=== PATIENT | female | born 1940 | race Two or more races ===

== ENCOUNTER 2024-02-11 15:10 | Outpatient (AMB) | payer MEDICARE, MEDICAID, SELFPAY ==
--- NOTE | 2024-02-11 15:26 | A.OFFPC_ITS ---
Vital Signs 02/11/24 15:32 Height 4 ft 9.48 in Weight 145 lb BMI 30.9 BP 100/38 L Blood Pressure Location Rt brachial Position Sitting Respiration 14 Pulse 72 Pulse Source Pulse Oximeter Temp 98.5 F Temp Source Oral Pulse Oximetry (%) 98 Oxygen Delivery Method Room Air Intake Visit Reasons: Establish Care transfer from [facility] Intake Note: New patient visit Veterinary Surgery Technician Required: Yes Veterinary Surgery Technician Name: Madelin Allergies cetirizine Allergy (Unknown, Verified 02/15/24 12:47) Unknown lisinopril Allergy (Unknown, Verified 02/15/24 12:47) Unknown losartan Allergy (Unknown, Verified 02/15/24 12:47) Unknown spironolactone Allergy (Unknown, Verified 02/15/24 12:47) Unknown contrast dye Allergy (Unknown, Uncoded 02/15/24 12:47) kidney failure Tobacco use date assessed: 02/11/24 Fall risk assessment: No Falls in past year Last assessed Fall Risk: 02/11/24 Dental Screening Dental Screen Date: 02/11/24 Did you have a dental visit in the last 12 months?: Yes Did you have a dental problem in the last 6 months where you did not have access to dental care?: No Was dental information given to patient?: Patient has dentist HPI HPI Comments History of Present Illness Details 84-year-old female with past medical his tory of type 2 diabetes, ESRD on HD, CAD, CHF, history of breast cancer, depression, presenting for follow up Biggest concern today-patient has intermittently been having trouble swallowing. It is when the food is in the lower neck/chest. If she tries to drink something to help food get down she vomits/regurgitates it. CV: Follows with cardiology. No recent CHF exacerbation. Does report some weight gain over the past few weeks. Denies increased shortness of breath Endocrine: Hypothyroid on levothyroxine. DM: generally well controlled Depression is stable on prozac. [facility] Medical History (Updated 02/17/24 @ 09:22 by Hawa Fish MD) Fistula Urge incontinence of urine Type 2 diabetes mellitus Tubular adenoma of colon Systolic left-sided congestive heart failure, NYHA class 2 Pulmonary embolism Protein malnutrition Osteopenia STACEY on CPAP Malignant neoplasm of female breast Lichen sclerosus of vulva Left leg swelling Incontinence Hypothyroidism HTN (hypertension) Hyperlipidemia Hiatal hernia Gastro-esophageal reflux ESRD on dialysis Diabetes mellitus Coronary arteriosclerosis Ischemic cardiomyopathy Congestive heart failure Cancer of left breast CAD (coronary artery disease) Anemia Surgical History H/O colonoscopy H/O: hysterectomy S/P SANDRINE-BSO History of implantable cardiac defibrillator (ICD) Family History Maternal Grandmother Cardiovascular disease Father Lung cancer Social History Housing: House Patient Tobacco Use Status: Never used Tobacco e-Cigarette/Vaping Use: Never Used Second Hand Smoke Exposure: Yes Cognitive needs: No Hearing needs: No Vision needs: No Questionnaire PHQ-9 Over the last 2 weeks, how often have you been bothered by any of the following problems? 1. Little interest or pleasure in doing things: not at all 2. Feeling down, depressed, or hopeless: not at all 3. Trouble falling or staying asleep, or sleeping too much: not at all 4. Feeling tired or having little energy: more than half the days 5. Poor appetite or overeating: not at all 6. Feeling bad about yourself - or that you are a failure or have let yourself or your family down: not at all 7. Trouble concentrating on things, such as reading the newspaper or watching television: not at all 8. Moving or speaking so slowly that other people could have noticed. Or the opposite - being so fidgety or restless that you have been moving around a lot more than usual: not at all 9. Thoughts that you would be better off or of hurting yourself in some way: not at all Total score: 2 Depression Screening Interpretation: Negative Depression Screening Done: Yes [id number] - PHQ-9 Billing: Yes Source: Developed by Drs. Bienvenido Aragon, Winnie Givens, Matt Alcantar and colleagues, with an educational justen from [email or web address]. Thrive Questionnaire Date Thrive assessed: 02/11/24 I am a: Patient What is your living situation today?: I have a steady place to live Within the past 12 months, did the food you bought not last and you didn't have the money to get more?: Never true Within the past 12 months, did you worry whether your food would run out before you got money to buy more?: Never true Do you have trouble paying for medicines?: No Do you have trouble getting transportation to medical appointments?: No Do you have trouble paying your heating and electricity bill?: No Do you have trouble taking care of your child, family member or friend?: No Do you have trouble with day-to-day activities such as bathing, preparing meals, shopping, managing finances, etc.?: No Are you currently unemployed and looking for a job?: No Are you interested in more education?: No Please select the resources that you would like help with: None Currently or been in a relationship where the following occur: no concerns reported THRIVE Score: 0 AUDIT C Alcohol Use Questionnaire (AUDIT-C) 1. How often do you have a drink containing alcohol?: Never 3. How often do you have six or more drinks on one occasion?: Never Total Score: 0 ANDREEA-7 AMB Questionnaire ANDREEA-7 Date ANDREEA - 7 assessed: 02/11/24 Feeling nervous, anxious, or on edge: 0 = Not at all Not being able to stop or control worryin = Not at all Worrying too much about different things: 0 = Not at all Trouble relaxin = Not at all Being so restless that it is hard to sit still: 0 = Not at all Becoming easily annoyed or irritable: 0 = Not at all Feeling afraid as if something awful might happen: 0 = Not at all Total ANDREEA-7 score (0-4 normal; 5-9 mild; 10-14 moderate; 15-21 severe): 0 Source: Developed by Drs. Bienvenido Aragon, Winnie Givens, Matt Alcantar and colleagues, with an educational justen from [email or web address]. ANDREEA-7 Assessment Billing ANDREEA-7 Assessment Tool: ANDREEA-7 Assessment 39244 Review of Systems Const Details: ROS CONSTITUTIONAL: Denies weight loss, fever and chills. HEENT: Denies changes in vision and hearing. RESPIRATORY: Denies SOB and cough. CV: Denies palpitations and CP GI: Denies abdominal pain, nausea, vomiting and diarrhea. : Denies dysuria and urinary frequency. MSK: Denies new myalgia and joint pain. SKIN: Denies rash and pruritus. NEUROLOGICAL: Denies headache PSYCHIATRIC: Denies recent changes in mood. Physical exam (Primary Care) Vital Signs: Last Vital Signs Temp 98.5 F 02/11/24 15:32 Pulse 72 02/11/24 15:32 Resp 14 02/11/24 15:32 BP 100/38 L 02/11/24 15:32 Pulse Ox 98 02/11/24 15:32 Oxygen Delivery Method Room Air 02/11/24 15:32 BMI result Body Mass Index 30.9 Tobacco/Smoking Status: Tobacco use Status Tobacco use date assessed 02/11/24 02/11/24 15:32 Patient Tobacco Use Status Never used Tobacco 02/11/24 15:32 e-Cigarette/Vaping Use Never Used 02/11/24 15:32 PHQ-9: PHQ-9 Score PHQ-9: Total score 2 02/11/24 16:58 Depression Screening Interpretation: Negative Thrive Assessment: Date of Thrive Assessment Date Thrive assessed 02/11/24 02/11/24 16:58 Currently or been in a relationship where the following occur: no concerns reported Assessment and Plan Assessment & Plan (1) Regurgitation of food: Code(s): R11.10 - Vomiting, unspecified Plan: Referral to GI placed (2) Dysphagia: Code(s): R13.10 - Dysphagia, unspecified Qualifiers: Dysphagia type: unspecified Qualified Code(s): R13.10 - Dysphagia, unspecified (3) Type 2 diabetes mellitus: Code(s): E11.9 - Type 2 diabetes mellitus without complications Qualifiers: Diabetes mellitus long chain quiller tender insulin use: with assisted use Diabetes mellitus complication status: with kidney complications Diabetes mellitus complication detail: with chronic kidney disease Chronic kidney disease stage: on chronic dialysis Qualified Code(s): E11.22 - Type 2 diabetes mellitus with diabetic chronic kidney disease; N18.6 - End stage renal disease; Z79.4 - halfway (current) use of insulin; Z99.2 - Dependence on renal dialysis (4) Systolic left-sided congestive heart failure, NYHA class 2: Code(s): I50.20 - Unspecified systolic (congestive) heart failure (5) ESRD on dialysis: Code(s): N18.6 - End stage renal disease; Z99.2 - Dependence on renal dialysis (6) HTN (hypertension): Code(s): I10 - Essential (primary) hypertension Orders: Orders FL barium swallow modified 02/11/24 R13.10 - Dysphagia, unspecified Referrals Gastroenterology Referral R11.10 - Vomiting, unspecified, R13.10 - Dysphagia, unspecified Medications: New clobetasol 0.05% 1 appl topical DAILY 30 days PRN 45 grams 3RF vaginal discomfort FreeStyle Cisco 2 Sensor (flash glucose sensor) As directed q14 days MARTA 6 ea 3RF NS E11.9 - Type 2 diabetes mellitus without complications Coding Level of Care Code Est Pt Level 5 (40789) Complex EM visit Add On G2211 Diagnoses Regurgitation of food R11.10 Dysphagia, unspecified type R13.10 Dysphagia type: unspecified Type 2 diabetes mellitus with chronic kidney disease on chronic dialysis, with long-term current use of insulin E11.22; N18.6; Z79.4; Z99.2 Diabetes mellitus long chain quiller tender insulin use: with long chain quiller tender use Diabetes mellitus complication status: with kidney complications Diabetes mellitus complication detail: with chronic kidney disease Chronic kidney disease stage: on chronic dialysis Systolic left-sided congestive heart failure, NYHA class 2 I50.20 ESRD on dialysis N18.6; Z99.2 HTN (hypertension) I10 Additional Codes ANDREEA-7 Assessment Billing - ANDREEA-7 Assessment Tool: ANDREEA-7 Assessment 39699 ([id number])
[2024-02-11 15:32] VITALS: BP 100/38; PULSE 72; RESP 14; TEMP 36.9; O2SAT 98; BMI 30.9
== END 2024-02-11 16:14 | disposition home or self-care (01) ==
PROVIDERS: Visit Provider Internal Medicine
DX: I12.0 Hypertensive chronic kidney disease with stage 5 chronic kidney disease or end stage renal disease (principal); E11.22 Type 2 diabetes mellitus with diabetic chronic kidney disease; N18.6 End stage renal disease; Z79.4 Long term (current) use of insulin; Z99.2 Dependence on renal dialysis; I50.20 Unspecified systolic (congestive) heart failure; R11.10 Vomiting, unspecified; R13.10 Dysphagia, unspecified
CPT/HCPCS: 99214; G2211

== ENCOUNTER 2024-02-15 12:41 | Outpatient (AMB) | payer MEDICARE, MEDICAID, SELFPAY ==
[2024-02-15 12:44] VITALS: BP 100/55; PULSE 76; BMI 30.5
--- NOTE | 2024-02-15 12:44 | MHC.OFFVIS ---
Vital Signs 02/15/24 12:44 Height 4 ft 9 in Weight 141 lb 1.533 oz BMI 30.5 BP 100/55 L Blood Pressure Location Rt brachial Position Sitting Pulse 76 Intake Visit Reasons: Dysphagia, Vomiting Intake Note: Dana presents in the office as a new patient for Dysphagia. CC: She is having issues swallowing that has been going on for a few months - she states it feels stuck. She will have to throw it up to get it out. Customer Solutions Architect Required: Yes Customer Solutions Architect Name: daughter Allergies cetirizine Allergy (Unknown, Verified 02/15/24 12:47) Unknown lisinopril Allergy (Unknown, Verified 02/15/24 12:47) Unknown losartan Allergy (Unknown, Verified 02/15/24 12:47) Unknown spironolactone Allergy (Unknown, Verified 02/15/24 12:47) Unknown contrast dye Allergy (Unknown, Uncoded 02/15/24 12:47) kidney failure HPI HPI Dysphagia, Vomiting: Details: 84-year-old female with past medical history of hyperlipidemia, CKD on dialysis since 2022, diabetes, history of breast cancer, depression, hypertension is here today for consultation. Patient was sent to evaluate for trouble swallowing. Patient reports that about few months ago she has been noticing that food gets stuck in proximal esophagus below cervical region. Patient reports that this does not happens all the time. Patient states that this happens usually with rice and some vegetables. Patient was on famotidine and was switched to omeprazole about a year ago or so. Patient is taking omeprazole 20 mg every morning. Patient reports that during night she has epigastric discomfort and burning. Patient does not feel like omeprazole has been working well. Patient denies any nausea or vomiting. Reports that she is moving her bowels without any issues. Denies melena, hematochezia, unintentional weight loss or ribbon like stools. Patient reports that she is able to swallow well, however sometimes feels like food gets stuck below and feels painful on the right side of her esophagus just below the cervical region. [facility] Medical History (Updated 02/17/24 @ 09:22 by Hawa Fish MD) Fistula Urge incontinence of urine Type 2 diabetes mellitus Tubular adenoma of colon Systolic left-sided congestive heart failure, NYHA class 2 Pulmonary embolism Protein malnutrition Osteopenia STACEY on CPAP Malignant neoplasm of female breast Lichen sclerosus of vulva Left leg swelling Incontinence Hypothyroidism HTN (hypertension) Hyperlipidemia Hiatal hernia Gastro-esophageal reflux ESRD on dialysis Diabetes mellitus Coronary arteriosclerosis Ischemic cardiomyopathy Congestive heart failure Cancer of left breast CAD (coronary artery disease) Anemia Surgical History H/O colonoscopy H/O: hysterectomy S/P SANDRINE-BSO History of implantable cardiac defibrillator (ICD) Family History Maternal Grandmother Cardiovascular disease Father Lung cancer Social History Housing: House Patient Tobacco Use Status: Never used Tobacco e-Cigarette/Vaping Use: Never Used Second Hand Smoke Exposure: Yes Cognitive needs: No Hearing needs: No Vision needs: No Review of Systems Const Denies weight gain and Denies weight loss ENT Reports no additional complaints, Reports dysphagia and Denies odynophagia Card Reports no additional complaints Resp Reports no additional complaints GI Denies abdominal pain, Denies belching, Denies melena, Denies bloating, Denies change in bowel habits, Reports dysphagia, Denies excessive flatus, Denies dyspepsia, Denies heartburn, Denies diarrhea, Denies loose stools, Denies nausea, Denies odynophagia and Denies vomiting Reports no additional complaints Musc Reports no additional complaints Neuro Reports no additional complaints Psych Reports no additional complaints Endo Reports no additional complaints Physical Exam Vital Signs: Last Vital Signs Pulse 76 02/15/24 12:44 BP 100/55 L 02/15/24 12:44 BMI result Body Mass Index 30.5 Const General: healthy appearing and no acute distress Nutritional Appearance: obese Orientation/consciousness: patient oriented x3 Resp Effort & Inspection: normal respiratory effort, able to speak in complete sentences, no tracheal deviation and symmetric chest movement Auscultation: clear to auscultation bilaterally Cardio Rate: regular rate GI Inspection: Yes normal to inspection, No distended and Yes obesity Palpation (GI): Soft to palpation, not firm, nontender and No hepatosplenomegaly present Auscultation: normal bowel sounds General: Yes no CVA tenderness Back/Spine/Pelvis Back: no CVA tenderness Skin General skin exam: elasticity normal, turgor normal and dry skin Neuro General: patient oriented x3 Psych Appearance: grossly normal Mental Status: mental status grossly normal Assessment & Plan Assessment & Plan (1) Dysphagia: Code(s): R13.10 - Dysphagia, unspecified Category: Medical Qualifiers: Dysphagia type: esophageal phase Qualified Code(s): R13.19 - Other dysphagia (2) GERD (gastroesophageal reflux disease): Code(s): K21.9 - Gastro-esophageal reflux disease without esophagitis Qualifiers: Esophagitis presence: esophagitis presence not specified Qualified Code(s): K21.9 - Gastro-esophageal reflux disease without esophagitis (3) Postprandial epigastric pain: Code(s): R10.13 - Epigastric pain Plan Will check for H pylori. Will change to barium swallow as her symptoms are located below cervical region and patient reports that she has no trouble swallowing, however reports that food is getting stuck in the proximal esophagus. Will change to Nexium in the morning and will add famotidine at bedtime. Avoid dietary triggers and late night snacking. Staying upright for minimum 3 hours after meals discussed with patient. Will check transglutaminase, H pylori, vitamin B12, liver panel, send her for barium swallow. Patient will start to take Nexium in the morning and famotidine at bedtime. Discussed with patient avoiding dietary triggers and late night snacking. Staying upright for minimum 3 hours after meals discussed with patient. She will return in 2 months, sooner on as needed basis. Patient is agreeable to this plan and verbalizes understanding of instructions. She was given the opportunity to ask questions and all questions answered. Thank you for allowing me to participate in her care Orders: Orders H pylori Ag Stool 02/15/24 K21.9 - Gastro-esophageal reflux disease without esophagitis Transglutaminase Ab IgG 02/15/24 R10.9 - Unspecified abdominal pain Vitamin B12 and Folate 02/15/24 R19.7 - Diarrhea, unspecified Lipid Panel 02/15/24 I25.10 - Atherosclerotic heart disease of [place] coronary artery without angina pectoris Liver Panel Today R74.01 - Elevation of levels of liver transaminase levels Transglutaminase IgA 02/15/24 R10.9 - Unspecified abdominal pain Vitamin D 25-OH (D2 and D3) 02/15/24 E55.9 - Vitamin D deficiency, unspecified FL barium swallow 02/15/24 R13.10 - Dysphagia, unspecified Add Laboratory Test 02/15/24 K21.9 - Gastro-esophageal reflux disease without esophagitis, R13.19 - Other dysphagia Medications: New esomeprazole magnesium (Nexium) 40 mg PO DAILY 30 caps 5RF K21.9 - Gastro-esophageal reflux disease without esophagitis, R13.10 - Dysphagia, unspecified Changed From famotidine 20 mg PO BID To famotidine 20 mg PO BEDTIME 30 tabs 3RF Coding Level of Care Code New Pt Level 4 (34943) Diagnoses Esophageal dysphagia R13.19 Dysphagia type: esophageal phase Gastroesophageal reflux disease, unspecified whether esophagitis present K21.9 Esophagitis presence: esophagitis presence not specified Postprandial epigastric pain R10.13 Time Spent (min) 45 Comment 30 minutes spent with patient and additional 15 minutes spent reviewing her records
== END 2024-02-15 13:30 | disposition home or self-care (01) ==
PROVIDERS: Visit Provider Nurse Practitioner Family
DX: R13.19 Other dysphagia (principal); K21.9 Gastro-esophageal reflux disease without esophagitis; R10.13 Epigastric pain
CPT/HCPCS: 99204

== ENCOUNTER → 2024-02-15 12:41 | Outpatient (BNVA) | payer MEDICARE, MEDICAID, SELFPAY | PROVIDERS: Visit Provider Nurse Practitioner Family | DX: K21.9 Gastro-esophageal reflux disease without esophagitis (principal); R13.19 Other dysphagia; R10.13 Epigastric pain | CPT/HCPCS: 99202 ==

== ENCOUNTER 2024-03-06 08:57 | Outpatient (REF) | payer MEDICARE, MEDICAID, SELFPAY ==
--- NOTE | ~2024-03-06 | FL_ITS ---
EXAMINATION: XR FLUOROSCOPY UPPER GI WITH AIR CLINICAL INFORMATION: Dysphagia COMPARISON: None TECHNIQUE: Fluoroscopic air contrast upper GI examination was performed utilizing standard techniques with thin and thick barium and effervescent granules. Numerous spot images were obtained. FINDINGS: A 3-lead left-sided pacer/AICD is noted. Leads terminate in the right ventricle, right atrium, and coronary sinus. Lateral cine images of the oropharynx and hypopharynx demonstrate normal swallow mechanism with normal epiglottic inversion and soft palate elevation. No tracheal penetration, glottic or subglottic aspiration identified. No nasopharyngeal reflux present. Hypopharyngeal structures appear normal without evidence of mass or diverticulum. There was no significant cricopharyngeal achalasia. Dual and single contrast images of the esophagus demonstrate normal caliber, contour, and mucosal pattern. No evidence of mass, or ulcerations identified. There is to and fro motion of the barium column with nonpropulsive tertiary contractions noted throughout the esophagus. A nonobstructing Schatzki's ring is present (RF1-8, 73/93). Probable small propulsion diverticulum arising posteriorly from the distal esophagus just above the Schatzki's ring. A small type I hiatal hernia is present. Gastroesophageal reflux is seen up to the level the aortic arch. Dual contrast and single contrast images of the stomach demonstrated a normal contour. Evaluation of the gastric mucosa is limited due to underdistention of the stomach from poor tolerance of the effervescent granules. No masses are seen. Contrast freely passed into the gastric antrum and duodenal bulb without delay. Single and air-contrast images of the duodenal bulb demonstrate no abnormality. The duodenal sweep has a normal appearance, course, and mucosal fold appearance. There is a large first and fourth segment diverticula arising cephalad. There is a small third segment diverticulum. There is no malrotation. The imaged proximal jejunum has a normal fold pattern and caliber. FLUOROSCOPY TIME: 4 minutes 11 seconds Number of Spot Images: 12 Number of Cine: 12 DOSE AREA PRODUCT: [id number] uGy-m2 (microgray-meter squared) FL/FL barium swallow with air IMPRESSION: 1. Prominent esophageal dysmotility. Small probable pulsion diverticulum arising above the GE junction. 2. Nonobstructing Schatzki's ring. 3. Small type I hiatal hernia. 4. Moderate gastroesophageal reflux. 5. Limited evaluation of the gastric mucosa due to underdistention of the stomach from poor retention of the effervescent granule gas. Consider correlation with EGD. 6. First, third, and fourth segment duodenal diverticula. This procedure was performed by Trae Franks PA-C, and supervised by Dr. Sawyer
== END 2024-03-06 08:58 | disposition home or self-care (01) ==
LOC: HO.XRAY 08:57
PROVIDERS: PCP Internal Medicine; Visit Provider Nurse Practitioner Family
DX: R13.10 Dysphagia, unspecified (principal)
CPT/HCPCS: 74221

== ENCOUNTER → 2024-03-06 09:00 | Outpatient (BNV) | payer MEDICARE, MEDICAID, SELFPAY | PROVIDERS: PCP Internal Medicine; Visit Provider Physician Assistant Surgical | DX: R13.10 Dysphagia, unspecified (principal) | CPT/HCPCS: 74246 ==

== ENCOUNTER 2024-04-16 13:26 | Outpatient (AMB) | payer MEDICARE, MEDICAID, SELFPAY ==
--- NOTE | 2024-04-16 13:38 | A.OFFVIS_ITS ---
Vital Signs 04/16/24 13:47 Height 4 ft 9 in Weight 140 lb 2 oz BMI 30.3 BP 128/60 Blood Pressure Location Rt brachial Position Sitting Pulse 68 Pulse Source Pulse Oximeter Pulse Oximetry (%) 97 Oxygen Delivery Method Room Air Intake Visit Reasons: 2 months follow up Intake Note: Dana presents in office today for a scheduled 2 mos FUV. CC; Pt was rx'd esomeprazole. Pt also had lab orders placed at her last visit which she had completed at [facility]. Pt states that they have been taking the nexium as instructed without any noticeable difference. 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 Will change to barium swallow as her symptoms are located below cervical region and patient reports that she has no trouble swallowing, however reports that food is getting stuck in the proximal esophagus. Will change to Nexium in the morning and will add famotidine at bedtime. Avoid dietary triggers and late night snacking. Staying upright for minimum 3 hours after meals discussed with patient. Will check transglutaminase, H pylori, vitamin B12, liver panel, send her for barium swallow. Patient will start to take Nexium in the morning and famotidine at bedtime. Discussed with patient avoiding dietary triggers and late night snacking. Staying upright for minimum 3 hours after meals discussed with patient. She will return in 2 months, sooner on as needed basis. Patient is agreeable to this plan and verbalizes understanding of instructions. She was given the opportunity to ask questions and all questions answered. ? Thank you for allowing me to participate in her care Orders Orders H pylori Ag Stool 02/15/24 K21.9 Transglutaminase Ab IgG 02/15/24 R10.9 Vitamin B12 and Folate 02/15/24 R19.7 Lipid Panel 02/15/24 I25.10 Liver Panel Today R74.01 Transglutaminase IgA 02/15/24 R10.9 Vitamin D 25-OH (D2 and D3) 02/15/24 E55.9 FL barium swallow 02/15/24 R13.10 Add Laboratory Test 02/15/24 K21.9, R13.19 Medications New esomeprazole magnesium (Nexium) 40 mg PO DAILY 30 caps 5RF K21.9, R13.10 Changed Changed From famotidine 20 mg PO BID Changed To famotidine 20 mg PO BEDTIME 30 tabs 3RF TODAY'S VISIT Patient is here today for follow-up. Patient is accompanied by her daughter. Patient reports that she started taking Nexium in the morning and takes famotidine at night time and throughout the day patient reports to have dyspepsia, dysphagia and epigastric pain. Patient states that she is doing okay with Pepcid at night time. Patient states that she is trying to avoid dietary triggers, denies eating late at night. Patient denies melena, hematochezia, unintentional weight loss or ribbon like stools. Barium swallow showed nonobstructing Schatzki ring possible diverticula in GE junction and esophageal dysmotility as well as moderate acid reflux. REPLACED BY [facility] Medical History Fistula Urge incontinence of urine Type 2 diabetes mellitus Tubular adenoma of colon Systolic left-sided congestive heart failure, NYHA class 2 Pulmonary embolism Protein malnutrition Osteopenia STACEY on CPAP Malignant neoplasm of female breast Lichen sclerosus of vulva Left leg swelling Incontinence Hypothyroidism HTN (hypertension) Hyperlipidemia Hiatal hernia Gastro-esophageal reflux ESRD on dialysis Diabetes mellitus Coronary arteriosclerosis Ischemic cardiomyopathy Congestive heart failure Cancer of left breast CAD (coronary artery disease) Anemia Surgical History H/O colonoscopy H/O: hysterectomy S/P SANDRINE-BSO History of implantable cardiac defibrillator (ICD) Family History Maternal Grandmother Cardiovascular disease Father Lung cancer Social History Housing: House Patient Tobacco Use Status: Never used Tobacco e-Cigarette/Vaping Use: Never Used Second Hand Smoke Exposure: Yes Cognitive needs: No Hearing needs: No Vision needs: No Review of Systems Const Denies weight gain and Denies weight loss ENT Reports no additional complaints, Reports dysphagia and Denies odynophagia Card Reports no additional complaints Resp Reports no additional complaints GI Denies abdominal pain, Denies belching, Denies melena, Denies bloating, Denies change in bowel habits, Reports dysphagia, Denies excessive flatus, Denies dyspepsia, Denies heartburn, Denies diarrhea, Denies loose stools, Denies nausea, Denies odynophagia and Denies vomiting Reports no additional complaints Musc Reports no additional complaints Neuro Reports no additional complaints Psych Reports no additional complaints Endo Reports no additional complaints Physical Exam Vital Signs: Last Vital Signs Pulse 68 04/16/24 13:47 BP 128/60 04/16/24 13:47 Pulse Ox 97 04/16/24 13:47 Oxygen Delivery Method Room Air 04/16/24 13:47 BMI result Body Mass Index 30.3 Const General: healthy appearing and no acute distress Nutritional Appearance: obese Orientation/consciousness: patient oriented x3 Resp Effort & Inspection: normal respiratory effort, able to speak in complete sentences, no tracheal deviation and symmetric chest movement Auscultation: clear to auscultation bilaterally Cardio Rate: regular rate GI Inspection: Yes normal to inspection, No distended and Yes obesity Palpation (GI): Soft to palpation, not firm, nontender and No hepatosplenomegaly present Auscultation: normal bowel sounds General: Yes no CVA tenderness Back/Spine/Pelvis Back: no CVA tenderness Skin General skin exam: elasticity normal, turgor normal and dry skin Neuro General: patient oriented x3 Psych Appearance: grossly normal Mental Status: mental status grossly normal Results Reviewed Results Reviewed: BARIUM SWALLOW IMPRESSION: 1. Prominent esophageal dysmotility. Small probable pulsion diverticulum arising above the GE junction. 2. Nonobstructing Schatzki's ring. 3. Small type I hiatal hernia. 4. Moderate gastroesophageal reflux. 5. Limited evaluation of the gastric mucosa due to underdistention of the stomach from poor retention of the effervescent granule gas. Consider correlation with EGD. 6. First, third, and fourth segment duodenal diverticula. Assessment & Plan Assessment & Plan (1) Dysphagia: Code(s): R13.10 - Dysphagia, unspecified Category: Medical Qualifiers: Dysphagia type: unspecified Qualified Code(s): R13.10 - Dysphagia, unspecified (2) GERD (gastroesophageal reflux disease): Code(s): K21.9 - Gastro-esophageal reflux disease without esophagitis Qualifiers: Esophagitis presence: esophagitis presence not specified Qualified Code(s): K21.9 - Gastro-esophageal reflux disease without esophagitis (3) Postprandial epigastric pain: Code(s): R10.13 - Epigastric pain (4) Constipation: Code(s): K59.00 - Constipation, unspecified Qualifiers: Constipation type: slow transit constipation Qualified Code(s): K59.01 - Slow transit constipation Plan Patient will start taking Pepcid twice a day. Avoid dietary triggers and late night snacking. We might have to change to PPI like pantoprazole. Patient did not do well with as omeprazole states that she did not feel any difference. Reports constipation and abdominal bloating will start her on senna. Patient will need upper endoscopy. Daughter wants patient to have a colonoscopy. Will send her to [facility] for clearance. She will return in 2-3 months to discuss going for procedure. Patient will call our office if she will continue to have symptoms. Both patient and her daughter are agreeable to plan of care and verbalizes understanding of instructions. They were given the opportunity to ask questions and all questions answered. Thank you for allowing me to participate in her care Medications: New sennosides (Natural Senna Laxative) 17.2 mg (2 x 8.6 mg) PO BEDTIME 60 tabs 3RF constipation K59.00 - Constipation, unspecified Changed From famotidine 20 mg PO BEDTIME 30 tabs 3RF To famotidine 20 mg PO BID 60 tabs 3RF Discontinued esomeprazole magnesium Discontinued Reason: Doctor's Order 40 mg PO DAILY 30 caps 5RF K21.9 - Gastro-esophageal reflux disease without esophagitis, R13.10 - Dysphagia, unspecified Coding Level of Care Code Est Pt Level 4 (36454) Diagnoses Dysphagia, unspecified type R13.10 Dysphagia type: unspecified Gastroesophageal reflux disease, unspecified whether esophagitis present K21.9 Esophagitis presence: esophagitis presence not specified Postprandial epigastric pain R10.13 Slow transit constipation K59.01 Constipation type: slow transit constipation Time Spent (min) 35 Comment 20 minutes spent with patient and additional 15 minutes spent reviewing her records
[2024-04-16 13:47] VITALS: BP 128/60; PULSE 68; O2SAT 97; BMI 30.3
== END 2024-04-16 14:49 | disposition home or self-care (01) ==
PROVIDERS: Visit Provider Nurse Practitioner Family
DX: R13.10 Dysphagia, unspecified (principal); K21.9 Gastro-esophageal reflux disease without esophagitis; R10.13 Epigastric pain; K59.01 Slow transit constipation
CPT/HCPCS: 99214

== ENCOUNTER → 2024-04-16 13:26 | Outpatient (BNVA) | payer MEDICARE, MEDICAID, SELFPAY | PROVIDERS: Visit Provider Nurse Practitioner Family | DX: K21.9 Gastro-esophageal reflux disease without esophagitis (principal); K59.01 Slow transit constipation; R13.10 Dysphagia, unspecified; R10.13 Epigastric pain | CPT/HCPCS: 99212 ==

== ENCOUNTER 2024-07-28 14:26 | Outpatient (AMB) | payer MEDICARE, MEDICAID, SELFPAY ==
--- NOTE | 2024-07-28 14:39 | A.OFFPC_ITS ---
Vital Signs 07/28/24 14:42 Height 4 ft 9 in Weight 144 lb 6 oz BMI 31.2 BP 108/44 L Blood Pressure Location Rt brachial Position Sitting Pulse 67 Pulse Source Pulse Oximeter Pulse Oximetry (%) 97 Oxygen Delivery Method Room Air Intake Visit Reasons: CPE Intake Note: Physical Allergies cetirizine Allergy (Unknown, Verified 07/28/24 14:40) Unknown lisinopril Allergy (Unknown, Verified 07/28/24 14:40) Unknown losartan Allergy (Unknown, Verified 07/28/24 14:40) Unknown spironolactone Allergy (Unknown, Verified 07/28/24 14:40) Unknown contrast dye Allergy (Unknown, Uncoded 07/28/24 14:40) kidney failure Tobacco use date assessed: 02/11/24 Dental Screening Dental Screen Date: 02/11/24 HPI HPI Comments History of Present Illness Details 84-year-old female with past medical his tory of type 2 diabetes, ESRD on HD, CAD, CHF, history of breast cancer, depression, presenting for physical exam CV: Follows with cardiology. No recent CHF exacerbation. Denies increased shortness of breath Endocrine: Hypothyroid on levothyroxine. DM: generally well controlled Depression is stable on prozac. GI: Dysphagia. Had barium swallow. Saw GI. ROS CONSTITUTIONAL: Denies weight loss, fever and chills. HEENT: Denies changes in vision and hearing. RESPIRATORY: Denies SOB and cough. CV: Denies palpitations and CP GI: Denies abdominal pain, nausea, vomiting and diarrhea. : Denies dysuria and urinary frequency. MSK: Denies new myalgia and joint pain. SKIN: Denies rash and pruritus. NEUROLOGICAL: Denies headache PSYCHIATRIC: Denies recent changes in mood. PHYSICAL EXAM: GENERAL: Alert and oriented x 3. NAD EYES: EOMI. Anicteric. HENT: Moist mucous membranes. LUNGS: Clear to auscultation bilaterally. CARDIOVASCULAR: Regular rate and rhythm. +murmur. No JVD. ABDOMEN: Soft, non-tender +bs EXTREMITIES: No edema. Non-tender. SKIN: No rashes or lesions. Warm. NEUROLOGIC: No focal neurological deficits. CN II-XII grossly intact PSYCHIATRIC: Cooperative. Appropriate mood and affect FORMERLY [facility], [facility]1983 Medical History Fistula Urge incontinence of urine Type 2 diabetes mellitus Tubular adenoma of colon Systolic left-sided congestive heart failure, NYHA class 2 Pulmonary embolism Protein malnutrition Osteopenia STACEY on CPAP Malignant neoplasm of female breast Lichen sclerosus of vulva Left leg swelling Incontinence Hypothyroidism HTN (hypertension) Hyperlipidemia Hiatal hernia Gastro-esophageal reflux ESRD on dialysis Diabetes mellitus Coronary arteriosclerosis Ischemic cardiomyopathy Congestive heart failure Cancer of left breast CAD (coronary artery disease) Anemia Surgical History H/O colonoscopy H/O: hysterectomy S/P SANDRINE-BSO History of implantable cardiac defibrillator (ICD) Family History Maternal Grandmother Cardiovascular disease Father Lung cancer Social History Housing: House Patient Tobacco Use Status: Never used Tobacco e-Cigarette/Vaping Use: Never Used Second Hand Smoke Exposure: Yes Cognitive needs: No Hearing needs: No Vision needs: No Questionnaire PHQ-9 Over the last 2 weeks, how often have you been bothered by any of the following problems? 1. Little interest or pleasure in doing things: not at all 2. Feeling down, depressed, or hopeless: not at all 3. Trouble falling or staying asleep, or sleeping too much: several days 4. Feeling tired or having little energy: several days 5. Poor appetite or overeating: not at all 6. Feeling bad about yourself - or that you are a failure or have let yourself or your family down: not at all 7. Trouble concentrating on things, such as reading the newspaper or watching television: not at all 8. Moving or speaking so slowly that other people could have noticed. Or the opposite - being so fidgety or restless that you have been moving around a lot more than usual: not at all 9. Thoughts that you would be better off or of hurting yourself in some way: not at all Total score: 2 Source: Developed by Drs. Bienvenido Aragon, Winnie Givens, Matt Alcantar and colleagues, with an educational justen from [employer]. Thrive Questionnaire Date Thrive assessed: 02/11/24 I am a: Parent/Caregiver What is your living situation today?: I have a steady place to live Within the past 12 months, did the food you bought not last and you didn't have the money to get more?: Never true Within the past 12 months, did you worry whether your food would run out before you got money to buy more?: Never true Do you have trouble paying for medicines?: No Do you have trouble getting transportation to medical appointments?: No Do you have trouble paying your heating and electricity bill?: No Do you have trouble taking care of your child, family member or friend?: No Do you have trouble with day-to-day activities such as bathing, preparing meals, shopping, managing finances, etc.?: No Are you currently unemployed and looking for a job?: No Are you interested in more education?: No Please select the resources that you would like help with: None Currently or been in a relationship where the following occur: No concerns reported THRIVE Score: 0 AUDIT C Alcohol Use Questionnaire (AUDIT-C) 1. How often do you have a drink containing alcohol?: Never Total Score: 0 ANDREEA-7 AMB Questionnaire ANDREEA-7 Date ANDREEA - 7 assessed: 02/11/24 Feeling nervous, anxious, or on edge: 1 = Several days Not being able to stop or control worryin = Not at all Worrying too much about different things: 0 = Not at all Trouble relaxin = Not at all Being so restless that it is hard to sit still: 0 = Not at all Becoming easily annoyed or irritable: 0 = Not at all Feeling afraid as if something awful might happen: 0 = Not at all Total ANDREEA-7 score (0-4 normal; 5-9 mild; 10-14 moderate; 15-21 severe): 1 Source: Developed by Drs. Bienvenido Aragon, Winnie Givens, Matt Alcantar and colleagues, with an educational justen from [employer]. Physical exam (Primary Care) Vital Signs: Last Vital Signs Pulse 67 07/28/24 14:42 BP 108/44 L 07/28/24 14:42 Pulse Ox 97 07/28/24 14:42 Oxygen Delivery Method Room Air 07/28/24 14:42 BMI result Body Mass Index 31.2 Tobacco/Smoking Status: Tobacco use Status Tobacco use date assessed 02/11/24 07/28/24 14:46 Patient Tobacco Use Status Never used Tobacco 07/28/24 14:46 e-Cigarette/Vaping Use Never Used 07/28/24 14:46 PHQ-9: PHQ-9 Score PHQ-9: Total score 2 08/14/24 10:55 Thrive Assessment: Date of Thrive Assessment Date Thrive assessed 02/11/24 07/28/24 14:46 Currently or been in a relationship where the following occur: No concerns reported Coding Level of Care Code Est Pt Prev Care >65y(87104) Diagnoses Physical exam Z00.00 Type 2 diabetes mellitus with chronic kidney disease on chronic dialysis, with long-term current use of insulin E11.22; N18.6; Z79.4; Z99.2 Chronic kidney disease stage: on chronic dialysis Diabetes mellitus complication detail: with chronic kidney disease Diabetes mellitus complication status: with kidney complications Diabetes mellitus computer terminal operator insulin use: with computer terminal operator use ESRD on dialysis N18.6; Z99.2 Systolic left-sided congestive heart failure, NYHA class 2 I50.20 Assessment & Plan Assessment & Plan (1) Physical exam: Code(s): Z00.00 - Encounter for general adult medical examination without abnormal findings Category: Medical Plan: Care team reviewed Medications reconciled HRA reviewed Chronic disease management discussed (2) Type 2 diabetes mellitus: Code(s): E11.9 - Type 2 diabetes mellitus without complications Category: Medical Qualifiers: Chronic kidney disease stage: on chronic dialysis Diabetes mellitus complication detail: with chronic kidney disease Diabetes mellitus complication status: with kidney complications Diabetes mellitus computer terminal operator insulin use: with computer terminal operator use Qualified Code(s): E11.22 - Type 2 diabetes mellitus with diabetic chronic kidney disease; N18.6 - End stage renal disease; Z79.4 - longterm (current) use of insulin; Z99.2 - Dependence on renal dialysis Plan: Generally well controlled on current medications (3) ESRD on dialysis: Code(s): N18.6 - End stage renal disease; Z99.2 - Dependence on renal dialysis Category: Medical Plan: Tolerating treatment well (4) Systolic left-sided congestive heart failure, NYHA class 2: Code(s): I50.20 - Unspecified systolic (congestive) heart failure Category: Medical Plan: Euvolemic on exam. continue cardiology follow up Orders: Orders Complete Blood Count Auto Diff 11/04/24 E11.22 - Type 2 diabetes mellitus with diabetic chronic kidney disease, N18.6 - End stage renal disease, Z79.4 - terminal system operator (current) use of insulin, Z99.2 - Dependence on renal dialysis, I10 - Essential (primary) hypertension, I50.20 - Unspecified systolic (congestive) heart failure Comprehensive Met. Panel 07/28/24 E11.22 - Type 2 diabetes mellitus with diabetic chronic kidney disease, N18.6 - End stage renal disease, Z79.4 - longterm (current) use of insulin, Z99.2 - Dependence on renal dialysis, I10 - Essential (primary) hypertension, I50.20 - Unspecified systolic (congestive) heart failure Hemoglobin A1c 07/28/24 E11.22 - Type 2 diabetes mellitus with diabetic chronic kidney disease, N18.6 - End stage renal disease, Z79.4 - longterm (current) use of insulin, Z99.2 - Dependence on renal dialysis, I10 - Essential (primary) hypertension, I50.20 - Unspecified systolic (congestive) heart failure Lipid Panel 07/28/24 E11.22 - Type 2 diabetes mellitus with diabetic chronic kidney disease, N18.6 - End stage renal disease, Z79.4 - terminal system operator (current) use of insulin, Z99.2 - Dependence on renal dialysis, I10 - Essential (primary) hypertension, I50.20 - Unspecified systolic (congestive) heart failure TSH reflex Free T4 07/28/24 E11.22 - Type 2 diabetes mellitus with diabetic chronic kidney disease, N18.6 - End stage renal disease, Z79.4 - terminal system operator (current) use of insulin, Z99.2 - Dependence on renal dialysis, I10 - Essential (primary) hypertension, I50.20 - Unspecified systolic (congestive) heart failure Medications: New atorvastatin 40 mg PO DAILY 90 tabs 3RF sevelamer carbonate must administer with a meal/food 800 mg PO TID 90 tabs 3RF ondansetron 4 mg PO Q8H PRN 60 tabs 3RF nausea and vomiting [id number]-[id number] acid 18-400 mg-mcg (Spectravite Women) 1 tab PO DAILY 90 tabs 3RF fluoxetine 10 mg PO DAILY 90 caps 3RF
[2024-07-28 14:42] VITALS: BP 108/44; PULSE 67; O2SAT 97; BMI 31.2
== END 2024-07-28 15:34 | disposition home or self-care (01) ==
LOC: HO.HMCFM 14:27
PROVIDERS: PCP Internal Medicine; Visit Provider Internal Medicine
DX: Z00.00 Encounter for general adult medical examination without abnormal findings (principal); E11.22 Type 2 diabetes mellitus with diabetic chronic kidney disease; N18.6 End stage renal disease; Z79.4 Long term (current) use of insulin; Z99.2 Dependence on renal dialysis; I50.20 Unspecified systolic (congestive) heart failure

== ENCOUNTER → 2024-07-28 14:26 | Outpatient (BNVA) | payer MEDICARE, MEDICAID, SELFPAY | PROVIDERS: PCP Internal Medicine; Visit Provider Internal Medicine | DX: Z00.00 Encounter for general adult medical examination without abnormal findings (principal); E11.22 Type 2 diabetes mellitus with diabetic chronic kidney disease; I13.2 Hypertensive heart and chronic kidney disease with heart failure and with stage 5 chronic kidney disease, or end stage renal disease; N18.6 End stage renal disease; I50.20 Unspecified systolic (congestive) heart failure; I25.10 Atherosclerotic heart disease of native coronary artery without angina pectoris; F32.A Depression, unspecified; E03.9 Hypothyroidism, unspecified; Z79.4 Long term (current) use of insulin; Z79.899 Other long term (current) drug therapy; Z99.2 Dependence on renal dialysis | CPT/HCPCS: 99397 ==

== ENCOUNTER 2024-11-04 12:49 | Outpatient (REF) | payer MEDICARE, MEDICAID, SELFPAY ==
--- OUTSIDE RECORDS SUMMARY | 2024-11-04 18:28 | XMS_ITS | Encounter Summary ---
Author Organization [facility] Address [address] [place] [address] Care Team Providers Care Tip Bander Name Role Phone Unavailable Primary Care Provider Unavailabl e Reason for Visit * Reason Onset Date Comments faxed office note 10/22/2024 Encounter Details Date Type Department Care Team (Late Contact Info) Description 10/22/2024 Telephone [facility] - [facility] [address] [facility] [address] [place] [phone] Jessi Erwin, ANTONINO [address] [place] [address] faxed office note Social History Tobacco Use [...] faxed note to [facility] Guy Dickens [place] [facility] [place] [phone] documented in this encounter Plan of Treatment Upcoming Encounters Date Type Department Care Team (Late Contact Info) Description 02/04/2025 3:30 PM EDT Ancillary Procedure [facility] - [facility] [address] [facility] [address] [place] [phone] 02/19/2025 3:40 PM EDT Office Visit Endocrinology - [address] [address] Lucille Clarke PA [address] [place] [address] 03/31/2025 3:15 PM EDT Office Visit [facility] Hematology Oncology [address] [place] [phone] Cullen Gibson MD [address] [place] [phone] 04/09/2025 3:40 PM EDT Appointment Radiology Department - [address] [address] 04/23/2025 10:50 AM EDT Office Visit [facility] Associates - [facility] [address] [facility] [address] [place] [phone] Taya Gonzales MD [address] [place] [address] documented as of this encounter Visit Diagnoses Not on filedocumented in this encounter
--- OUTSIDE RECORDS SUMMARY | 2024-11-04 18:28 | XMS_ITS | Encounter Summary ---
Author Organization [facility] Address [address] [place] [phone] Phone Care Team Providers Care Computer Artist Name Role Phone Unavailable Primary Care Provider Unavailabl e Encounter Details Date Type Department Care Team (Late st Contact Info) Description 10/20/2024 Treatment [facility] [address] [address] Aldo Rice MD [address] [address] Social History Tobacco Use Types [...] care for end stage renal disease. Attending Pharmaceutical Plant Operator: ALDO RICE MD Dialysis Location: [facility] Schedule: Shift: 1 HOME MEDICATIONS Current [facility] Epic Outpatient Medications calcitriol (ROCALTROL) 0.25 MCG capsule TOME 1 CAPSULA POR VIA ORAL TODOS [place] Start Date: 08/08/2021 sevelamer carbonate (RENVELA) 800 MG tablet TOME CAMERON TABLETA JOANN VECES AL WODO CON LAS COMIDAS Start Date: 02/13/2024 Current Acumen Epic Allergies Allergen: Not on File ANEMIA ASSESSMENT Hgb 9.8 (09/10/24) Signed by: ALDO RICE MD on 10/20/2024 at 08:07:00 AM documented in this encounter Plan of Treatment Not on file documented as of this encounter Visit Diagnoses Not on filedocumented in this encounter
--- OUTSIDE RECORDS SUMMARY | 2024-11-04 18:28 | XMS_ITS | Clinical Summary ---
Author Organization [facility] Address [address] [place] [address] Care Team Providers Care Corporate Banking Officer Name Role Phone Hawa Fish MD Primary Care Provider [phone] Allergies Active Allergy Reactions Criticality Noted Date [...] age to complete this topic Care Teams Corporate Banking Officer Relationship Specialty Start Date End Date Hawa Fish MD PCP - General Internal Medicine 10/28/20
--- OUTSIDE RECORDS SUMMARY | 2024-11-04 18:28 | XMS_ITS | Encounter Summary ---
Author Organization [facility] Address [address] [place] [address] Care Team Providers Care Tab Builder Name Role Phone Unavailable Primary Care Provider Unavailabl e Encounter Details Date Type Department Care Team (Late Contact Info) Description 10/14/2024 10:25 PM EST Ancillary Procedure [facility] [address] [address] Social History Tobacco Use Types Packs/Day Years [...] Description 02/04/2025 3:30 PM EDT Ancillary Procedure [facility] 154 300 [facility] 154 [place] [address] 02/19/2025 3:40 PM EDT Office Visit Endocrinology - [place] [address] [place] [phone] Lucille Clarke PA [address] [place] [address] 03/31/2025 3:15 PM EDT Office Visit [facility] Hematology Oncology [address] [place] [phone] Cullen Gibson MD 271 [place] [phone] 04/09/2025 3:40 PM EDT Appointment Radiology Department - [address] [address] 04/23/2025 10:50 AM EDT Office Visit [facility] [address] 300 [facility] 154 [place] [phone] Taya Gonzales MD 300 [place] [address] documented as of this encounter Procedures Procedure Name Priority Date/Time Associated Diagnosis Comments CARDIAC DEVICE CHECK- REMOTE- MURJ Routine 10/14/2024 10:24 PM EST documented in this encounter Results * Cardiac device check - Remote- MURJ (10/14/2024 10:24 PM EST) Date Time Interrogation Session [id number] CV DEVICE CHECK Type Interrogation Session Remote Scheduled CV DEVICE CHECK Implantable Pulse Generator Eligibility Supervisor [facility] CV DEVICE CHECK Implantable Pulse Generator Type HEAD MECHANIC-D CV DEVICE CHECK Implantable Pulse Generator Model [id number] [facility]() CV DEVICE CHECK Implantable Pulse Generator Serial Number [id number] CV DEVICE CHECK Implantable Pulse Generator Implant Date 20240110 CV DEVICE CHECK Battery Remaining Percentage 83.00 CV DEVICE CHECK Battery Remaining Longevity 53.0 CV DEVICE CHECK Battery Voltage 3.010 CV D EVICE CHECK Battery MERCHANDISING EXECUTION ASSOCIATE Trigger 2.590 CV DEVICE CHECK Battery Status Middle of Service CV DEVICE CHECK Capacitor Charge Time 8.000 CV DEVICE CHECK Antione Statistic RA Percent Paced 49.00 CV DEVICE CHECK Antione Statistic RV Percent Paced 100.00 CV DEVICE CHECK HEAD MECHANIC Statistic HEAD MECHANIC Percent Paced 99.00 CV DEVICE CHECK Atrial Tachy Statistic AT/AF [place] Percent 0.00 CV DEVICE CHECK Lead Channel [...] CV DEVICE CHECK Ventricular chambers paced during HEAD MECHANIC pacing. BiV CV DEVICE CHECK Antione Setting Lower Rate Limit 60 CV DEVICE CHECK Antione Setting AT Mode Switch Rate 180 CV DEVICE CHECK Antione Setting Maximum Tracking Rate 110 CV DEVICE CHECK Antione Setting Maximum Sensor Rate 110 CV DEVICE CHECK Antione Setting PAV Delay 150 CV DEVICE CHECK Antione Setting JAGJIT Delay 130 CV DEVICE CHECK HEAD MECHANIC LV-RV Delay 40 CV D EVICE CHECK [...]
--- OUTSIDE RECORDS SUMMARY | 2024-11-04 18:28 | XMS_ITS | Encounter Summary ---
Author Organization [facility] Address [address] [facility] [address] [place] [address] Care Team Providers Care Commercial Credit Reviewer Name Role Phone Unavailable Primary Care Provider Unavailabl e Encounter Details Date Type Department Care Team (Latest Contact Info) Description 05/28/2024 Treatment Aldo Rice MD [address] [facility] [address] [place] [address] Social History Tobacco Use Types [...] care for end stage renal disease. Attending Deburrer Machine: ALDO RICE MD Dialysis Location: [facility] Schedule: Shift: 1 OVERVIEW Patient [...]
--- OUTSIDE RECORDS SUMMARY | 2024-11-04 18:28 | XMS_ITS | Encounter Summary ---
Author Organization [facility] Address [address] [place] [address] Care Team Providers Care Finish Mill Operator Name Role Phone Unavailable Primary Care Provider Unavailabl e Reason for Visit * Reason Comments Pre-op Exam colonoscopy Encounter Details Date Type Department Care Team (Late st Contact Info) Description 10/14/2024 12:40 PM EST Consult [facility] - [address] [place] [address] Jessi Erwin NP [address] [place] [address] Chronic systolic dysfunction of left ventricle (Primary Dx); Primary hypertension; Coronary artery disease involving delaware tribe coronary artery of delaware tribe heart without angina pectoris; Systolic left-sided congestive [...] to renal for that final decision * Jsesi Erwin NP - 10/14/2024 12:40 PM ESTAssociated Problem(s): CAD (coronary artery disease) She has no anginal symptoms to her current MET workload. For now, continue her ASA, BB and statin. 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 [...] (dialysis fistula side). It occurred right around [place].She has plans for what sounds to be [...] kidney disease) stage 3, GFR 30-59 ml/min ([facility]) 11/28/2023 Dr. 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 Patient will be following with pulmonology 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 ([facility]) 03/08/2021 Ischemic congestive cardiomyopathy Systolic left-sided congestive heart failure, NYHA class 2 ([facility]) 01/26/2021 - LVEF as low as 10-15% - GDMT limited by hypotension - Most recent echocardiogram 07/2022 at [facility] showed LVEF 10- 15%, global hypokinesis with wall motion abnormalities without hemodynamically significant valve disease - [facility] DANDY OPERATOR-D generator change in 12/2023. There had been some noise on her atrial lead that was found to have a small insulation breach. However, the lead was tested repeatedly and no noise was seen on manipulating it. Therefore, a lead repair kit was used and the isulation was fixed. Pulmonary embolism ([facility]) 11/30/2020 Malignant neoplasm of left female breast ([facility]) 11/30/2020 Class 1 obesity 04/15/2018 Chronic systolic heart failure ([facility]) 08/22/2016 Type 2 diabetes, controlled, with renal manifestation ([facility]) 06/02/2015 Obstructive sleep apnea 04/16/2015 [facility] Polysomnogram treatment study. Date 10/06/2017 . SE 68 % SM 72 %; spent 13 % of the study in REM. At the optimal pressure of CPAP 7-9; RDI <4 (AHI <4), Central apneas 0-2; Obstructive apneas 0; Mixed apneas 0; hypopneas 3-4; RERAs 2; and, average oxygen saturation was 93%. For the entire study, PLMs ~34. [facility] CPAP treatment study, 08/07/2021. Weight [...] lesion. Resolved Problems Diagnosis Date Diagnosed Old [place] (myocardial infarction) March 2011 OK at [facility] Chronic systolic dysfunction of left ventricle [...] Q-T Interval 466 QTc 510 P Wave Dun[place] 69 R Dundee -65 T Dundee 97 ECG Interpretation Atrial sensed, BiV paced [...] that final decision Coronary artery disease involving delaware tribe coronary artery of delaware tribe heart without angina pectoris She has no anginal symptoms to her current MET workload. For now, continue her ASA, BB and statin. Systolic left-sided congestive heart failure, NYHA class 2 ([facility]) The patient's volume status is managed by [...] or so following her procedure. Should her EGD/[place] be unrevealing, can consider speech therapy evaluation [...] a total of 30 minutes, including both xcdl-zo-taja and oyt-bpkh-dk-face time on the date of the encounter, addressing the above diagnoses. Activities performed in this time includechart review, obtaining / reviewing history, performing a medically necessary evaluation, documentation and counseling including medical decision making of 1. Chronic systolic dysfunction of left ventricle 2. Primary hypertension 3. Coronary artery disease involving delaware tribe coronary artery of delaware tribe heart without angina pectoris 4. Systolic left-sided congestive heart failure, NYHA class 2 (CMS/HCC) 5. Pure hypercholesterolemia 6. Preop cardiovascular exam . Cosigned by Kaz Beatty MD at 10/19/2024 12:43 AM EST documented in this encounter Plan of Treatment Upcoming Encounters Date Type Department Care Team (Late st Contact Info) Description 02/04/2025 3:30 PM EDT Ancillary Procedure [facility] - [address] [facility] 154 [place] [address] 02/19/2025 3:40 PM EDT Office Visit Endocrinology - [address] [phone] Lucille Clarke PA [address] [place] [address] 03/31/2025 3:15 PM EDT Office Visit [facility] Hematology Oncology [address] [place] [phone] Cullen Gibson MD [address] [place] [phone] 04/09/2025 3:40 PM EDT Appointment Radiology Department - [address] [address] 04/23/2025 10:50 AM EDT Office Visit [facility] - [facility] 154 300 [facility] 154 [place] [address] Taya Gonzales MD 300 [place] [address] documented as of this encounter Procedures Procedure [...] GEMUSE QTc 510 ms GEMUSE P Wave Dundee 69 degrees GEMUSE R Dundee -65 degrees GEMUSE T Dundee 97 degrees GEMUSE ECG Interpretation Atrial sensed, BiV paced rhythm Confirmed by CHANDAN BEATTY ([id number]) on 10/18/2024 11:50:21 PM GEMUSE 10/14/2024 12:4 9 PM EST 10/18/2024 11:50 PM EST us Jessi Erwin NP ECG ORDERABLES Edited Result - Final GEMUSE documented in this encounter Visit Diagnoses Diagnosis Chronic systolic dysfunction of left ventricle- Primary Primary hypertension Unspecified essential hypertension Coronary artery disease involving delaware tribe coronary artery of delaware tribe heart without angina pectoris Systolic left-sided congestive heart failure, NYHA class 2 (CMS/HCC) Pure hypercholesterolemia Preop cardiovascular exam Pre-operative cardiovascular examination Encounter for adjustment or management of cardiac device documented in this encounter
--- OUTSIDE RECORDS SUMMARY | 2024-11-04 18:28 | XMS_ITS | Clinical Summary ---
Author Organization [facility] Address [address] [place] [address] Phone Care Team Providers Care Poultry And Fish Butcher Name Role Phone Unavailable Primary Care Provider [...] 11/03/2024 Treatment [facility] [address] [address] Ryan Graf MD 10/27/2024 Treatment [facility] [address] [address] Ryan Graf MD 10/20/2024 Treatment [facility] [address] [address] Ryan Graf MD 10/13/2024 Treatment [facility] [address] [address] Ryan Graf MD 10/06/2024 Treatment [facility] [address] [address] Ryan Graf MD 09/29/2024 Treatment [facility] [address] [address] Ryan Graf MD 09/16/2024 Treatment [facility] [address] [address] Ryan Graf MD 09/10/2024 Orders Only [facility] [address] [address] Ryan Graf MD 09/08/2024 Treatment [facility] [address] [address] Ryan Graf MD 09/01/2024 Treatment [facility] [address] [address] Ryan Graf MD 08/25/2024 Treatment [facility] [address] [address] Ryan Graf MD 08/11/2024 Treatment [facility] [address] [address] Ryan Graf MD 08/04/2024 Treatment [facility] [address] [address] Ryan Graf MD from Last 3 Months [...] Final Resul t [facility] [address] [place] [address] * (ABNORMAL) SPECIAL CHEMISTRY (08/30/2022 6:00 AM EST) Hemoglobin A1C 7.3(H) 4.8 - 5.9 % [facility] 08/30/2022 6:00 AM EST 08/31/2022 6:56 AM EST Narrative [facility] - 08/30/2022 6:00 AM EST Unless otherwise specified, test(s) performed at: [facility], [address] [place], [place] [id number] SUPERVISOR LEAD REFINERY: Emery Muller M.D. For any questions, please call customer service at FREQUENCY:MONTHLY Resulting Agency Comment Specimen source: Blood Jt Mckeon MD LAB BLOOD BANK TEST ORDERABLES Final Result [facility] from Last 3 Months or Most Recently Relevant to Health Maintenance Insurance [facility]
--- OUTSIDE RECORDS SUMMARY | 2024-11-04 18:28 | XMS_ITS | Encounter Summary ---
Author Organization [facility] Address [address] [place] [phone] Phone Care Team Providers Care Clinical Support Specialist Name Role Phone Unavailable Primary Care Provider Unavailabl e Encounter Details Date Type Department Care Team ([facility] st Contact Info) Description 10/13/2024 Treatment [facility] [address] [address] Aldo Rice MD [address] [address] Social History Tobacco Use Types [...] care for end stage renal disease. Attending Clinical Social Work Aide: ALDO RICE MD Dialysis Location: [facility] Schedule: Shift: 1 HOME MEDICATIONS [...]
--- OUTSIDE RECORDS SUMMARY | 2024-11-04 18:28 | XMS_ITS | Encounter Summary ---
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, with long-term current use of insulin ([facility]) (Primary Dx); Hypothyroidism, unspecified type Social History [...] kidney disease) stage 3, GFR 30-59 ml/min ([facility]) 11/28/2023 Lichen sclerosus et atrophicus of the vulva 11/28/2023 History of percutaneous coronary intervention 11/28/2023 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 breast in female, estrogen receptor positive ([facility]) 11/28/2023 Hypercalcemia 02/22/2022 PLMD (periodic limb movement disorder) 08/22/2021 Nocturnal hypoxemia 04/21/2021 Respiratory failure with hypercapnia ([facility]) 03/11/2021 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 ([facility]) 03/08/2021 Systolic left-sided congestive heart failure, NYHA class 2 ([facility]) 01/26/2021 Pulmonary embolism ([facility]) 11/30/2020 Malignant neoplasm of left female breast ([facility]) 11/30/2020 Class 1 obesity 04/15/2018 Chronic systolic heart failure ([facility]) 08/22/2016 Type 2 diabetes, controlled, with renal manifestation ([facility]) 06/02/2015 Obstructive sleep apnea 04/16/2015 Osteopenia 11/29/2012 [...] EACH MEAL PER SLIDINGSCALE: <120: 0 units, 134068: 3 units, 151-199: 4 UNITS, 200-249: 5 [...] dialysis, with long-term current use of insulin ([facility]) 2. Hypothyroidism, unspecified type PLAN: Diabetes complicated [...] 02/04/2025 3:30 PM EDT Ancillary Procedure [facility] [address] [address] 02/19/2025 3:40 PM EDT Office Visit Endocrinology - [address] [address] Lucille Clarke PA [address] [place] [address] 03/31/2025 3:15 PM EDT Office Visit [facility] Hematology Oncology [address] [place] [address] Cullen Gibson MD [address] [place] [address] 04/09/2025 3:40 PM EDT Appointment Radiology Department - [address] [address] 04/23/2025 10:50 AM EDT Office Visit [facility] [address] [address] Taya Gonzales MD 300 [place] [address] documented as of this encounter Visit Diagnoses Diagnosis 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
--- OUTSIDE RECORDS SUMMARY | 2024-11-04 18:28 | XMS_ITS | Encounter Summary ---
Author Organization [facility] Address [address] [place] [phone] Phone Care Team Providers Care Preschool Disability Teacher Name Role Phone Unavailable Primary Care Provider Unavailabl e Encounter Details Date Type Department Care Team (Late st Contact Info) Description 10/27/2024 Treatment [facility] [address] [address] Aldo Rice MD [address] [address] Social History Tobacco Use Types [...] care for end stage renal disease. Attending Project Structural Engineer: ALDO RICE MD Dialysis Location: [facility] Schedule: Shift: 1 OVERVIEW [...]
--- OUTSIDE RECORDS SUMMARY | 2024-11-04 18:28 | XMS_ITS | Clinical Summary ---
Author Organization [address] [place] [address] [place] [phone] Phone Care Team Providers Care At[employer] Retailer Sales Consultant Name Role Phone Unavailable Primary Care [...] MEAL PER SLIDING SCALE: <120: 0 units, 988666: 3 units, 151-199: 4 UNITS, 200-249: 5 [...] hypotension - Most recent echocardiogram 07/2022 at [facility] showed LVEF 10- 15%, global hypokinesis with wall motion abnormalities without hemodynamically significant valve disease - [facility] EASTERN PHILOSOPHY PROFESSOR-D generator change in 12/2023. 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, with long-term current use of insulin (CMS/HCC) (Primary Dx); Hypothyroidism, unspecified type 10/22/2024 Telephone [facility] Cardiology [facility] [address] [place] [address] Jessi Erwin NP faxed office note 10/14/2024 10:25 PM EST Ancillary Procedure [facility] - [address] [place] [address] 10/14/2024 12:40 PM EST Consult [facility] Cardiology [facility] - [address] [place] [address] Jessi Erwin NP Chronic systolic dysfunction of left ventricle (Primary Dx); Primary hypertension; Coronary artery disease involving wiyot coronary artery of wiyot heart without angina pectoris; Systolic left-sided congestive heart failure, NYHA class 2 (CMS/HCC); Pure hypercholesterolemia; Preop cardiovascular exam 09/30/2024 3:15 PM EST Office Visit [facility] Hematology Oncology [address] [place] [phone] Cullen Gibson MD 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 breast in female, estrogen receptor positive (CMS/HCC) (Primary Dx) 09/15/2024 Telephone [facility] Cardiology [facility] - [address] [place] [address] Ramya Headley NP Arm Swelling 09/11/2024 11:25 AM EST Ancillary Procedure [facility] Cardiology [facility] - [address] [place] [address] 09/09/2024 Telephone [facility] Cardiology [facility] - [address] [place] [address] Nikhil Sorenson MD 08/14/2024 5:30 PM EST Ancillary Procedure [facility] - [address] [facility] [address] [place] [address] from Last 3 Months Immunizations [...] Description 02/04/2025 3:30 PM EDT Ancillary Procedure [facility] - [facility] [address] [facility] 154 [place] [phone] 02/19/2025 3:40 PM EDT Office Visit Endocrinology - [address] [address] Lucille Clarke PA [address] [place] [address] 03/31/2025 3:15 PM EDT Office Visit [facility] Hematology Oncology [address] [place] [phone] Cullen Gibson MD [address] [place] [phone] 04/09/2025 3:40 PM EDT Appointment Radiology Department - [address] [address] 04/23/2025 10:50 AM EDT Office Visit [facility] Cardiology [facility] - [facility] [address] [facility] 154 [place] [phone] Taya Gonzales MD [address] [place] [address] Health Maintenance Due Date Last Done Comments [...] this topic Medical Devices Implanted Type Area Newscast Director Device Identifier Shelf Expiration Date Model / Serial / Lot Abbt-Stju 3357-40q Bruce Chacko() [id number] Implanted:12/23 (Quantity not on file) Cardiac EASTERN PHILOSOPHY PROFESSOR-D ICD [facility] 3357-40Q CINDYAfsaneh CHACKO() / [id number] / Procedures Procedure Name Priority Date/Time Associated [...] GEMUSE QTc 510 ms GEMUSE P Wave Qulin 69 degrees GEMUSE R Qulin -65 degrees GEMUSE T Qulin 97 degrees GEMUSE ECG Interpretation Atrial sensed, [...] period is included. Date Time Interrogation Session [id number] CV DEVICE CHECK Type Interrogation Session Remote Scheduled CV DEVICE CHECK Implantable Pulse Generator Newscast Director [facility] CV DEVICE CHECK Implantable Pulse Generator Type EASTERN PHILOSOPHY PROFESSOR-D CV DEVICE CHECK Implantable Pulse Generator Model 3357-40Q Bruce Chacko(TM) CV DEVICE CHECK Implantable Pulse Generator Serial Number [id number] CV DEVICE CHECK Implantable Pulse Generator Implant Date 20240110 CV DEVICE CHECK Battery Remaining Percentage 83.00 CV DEVICE CHECK Battery Remaining Longevity 53.0 CV DEVICE CHECK Battery Voltage 3.010 CV D EVICE CHECK Battery REGIONAL TRAINING MANAGER Trigger 2.590 CV DEVICE CHECK Battery Status Middle of Service CV DEVICE CHECK Capacitor Charge Time 8.000 CV DEVICE CHECK Antione Statistic RA Percent Paced 49.00 CV DEVICE CHECK Antione Statistic RV Percent Paced 100.00 CV DEVICE CHECK EASTERN PHILOSOPHY PROFESSOR Statistic EASTERN PHILOSOPHY PROFESSOR Percent Paced 99.00 CV DEVICE CHECK Atrial Tachy Statistic AT/AF Fitzgerald Percent 0.00 CV DEVICE CHECK Lead Channel [...] CV DEVICE CHECK Ventricular chambers paced during EASTERN PHILOSOPHY PROFESSOR pacing. BiV CV DEVICE CHECK Antione Setting Lower Rate Limit 60 CV DEVICE CHECK Antione Setting AT Mode Switch Rate 180 CV DEVICE CHECK Antione Setting Maximum Tracking Rate 110 CV DEVICE CHECK Antione Setting Maximum Sensor Rate 110 CV DEVICE CHECK Antione Setting PAV Delay 150 CV DEVICE CHECK Antione Setting JAGJIT Delay 130 CV DEVICE CHECK EASTERN PHILOSOPHY PROFESSOR LV-RV Delay 40 CV D EVICE CHECK [...] PM EST Narrative 11/08/2020 3:13 PM EST [facility] Diagnostic Imaging Department [address] [place] [phone] Patient: ??DANA NASH ?/Age/Sex: 1940 - 80 - F Unit#: ??[id number] ? Location/Status: ??SPDIMAM/REG CLI ? Mnemonic/Ordering Site: [...] probability of hip fracture of 3.1%. Code 23523 Dictating Physician: ??KYLIE GLASER MD Electronically Signed by: ??KYLIE GLASER MD Dic Date/Time: ??11/08/201511 Sign date/Time: ??11/08/20 151 Procedure Note Kylie Glaser MD - 09/12/2022 [facility] Diagnostic Imaging Department [address] [place] [address] Patient: CHARITYDANA./Age/Sex: 1940 - 80 - F Unit#: [id number] Location/Status: SPDIMAM/REG CLI [facility] Ordering Physician: CULLEN GIBSON MD Valorie Dexa [...] density of the femurs bilaterally is 0.981 gm/ix5ibyss is 97% of that of young normals [...] probability of hip fracture of 3.1%. Code 71522 Dictating Physician: KYLIE GLASER MD Electronically Signed by: KYLIE GLASER MD Dic Date/Time: 11/08/201511 Sign date/Time: 11/08/201512 Cullen Gibson MD IMG BI PROCEDURES Final Res ult from Last 3 Months or Most Recently Relevant to Health Maintenance Insurance [employer] [place]
--- OUTSIDE RECORDS SUMMARY | 2024-11-04 18:28 | XMS_ITS | Encounter Summary ---
Author Organization [facility] Address [address] [place] [phone] Phone Care Team Providers Care Equipment Or Machinery Cleaner Name Role Phone Unavailable Primary Care Provider Unavailabl e Encounter Details Date Type Department Care Team (Late st Contact Info) Description 10/06/2024 Treatment [facility] [address] [address] Aldo Rice MD [address] [address] Social History Tobacco Use Types [...] care for end stage renal disease. Attending Marketing Technology Specialist: ALDO RICE MD Dialysis Location: [facility] Schedule: Shift: 1 HOME MEDICATIONS [...]
--- OUTSIDE RECORDS SUMMARY | 2024-11-04 18:28 | XMS_ITS | Encounter Summary ---
Author Organization [facility] Address [address] [place] [phone] Phone Care Team Providers Care Change Management Director Name Role Phone Unavailable Primary Care Provider Unavailabl e Encounter Details Date Type Department Care Team (Late st Contact Info) Description 11/03/2024 Treatment [facility] [address] [address] Aldo Rice MD [address] [address] Social History Tobacco Use Types [...] - 11/03/2024 12:00 AM EST Patient: Dana Grant : 1940 Note Type: Dialysis Rounds-Basic Service Date: 11/03/2024 This patient was personally seen for a basic visit as part of routine monthly dialysis care for end stage renal disease. Attending Cost Recorder: ALDO RICE MD Dialysis Location: [facility] Schedule: Shift: 1 HOME MEDICATIONS [...]
[2024-11-04 19:08] LABS: Influenza A PCR POSITIVE (Negative); Influenza B PCR NEGATIVE (Negative); Resp Syncy Virus RNA Qual PCR NEGATIVE (Negative); SARS COV2 PCR INHOUSE NEGATIVE (Negative)
== END 2024-11-04 12:50 | disposition home or self-care (01) ==
LOC: HO.LNP 12:49
PROVIDERS: PCP Internal Medicine; Visit Provider Nurse Practitioner Family
DX: R06.02 Shortness of breath (principal); R68.89 Other general symptoms and signs; I50.20 Unspecified systolic (congestive) heart failure; N18.6 End stage renal disease; Z99.2 Dependence on renal dialysis
CPT/HCPCS: 0241U; 94640; 96127; 99212

== ENCOUNTER 2024-11-04 12:49 | Outpatient (AMB) | payer MEDICARE, MEDICAID, SELFPAY ==
--- NOTE | 2024-11-04 12:55 | MHC.PC.OV ---
Vital Signs 11/04/24 13:03 11/04/24 13:59 Height 4 ft 9 in BP 112/48 L Blood Pressure Location Rt brachial Position Sitting Respiration 18 Pulse 72 70 Pulse Source Pulse Oximeter Auscultation Temp 97.9 F Temp Source Oral Pulse Oximetry (%) 96 95 Oxygen Delivery Method Room Air Room Air Intake Visit Reasons: est/cough over 2 weeks Intake Note: Cough for two weeks Motor And Generator Brush Cutter Required: No Motor And Generator Brush Cutter Name: corporate consultant declined Accompanied by: Daughter Allergies cetirizine Allergy (Unknown, Verified 11/04/24 13:24) Unknown lisinopril Allergy (Unknown, Verified 11/04/24 13:24) Unknown losartan Allergy (Unknown, Verified 11/04/24 13:24) Unknown spironolactone Allergy (Unknown, Verified 11/04/24 13:24) Unknown contrast dye Allergy (Unknown, Uncoded 11/04/24 13:24) kidney failure Medication List - Last Reconciled 11/04/24 by Adrienne Vega, STAKER SURVEYING- aspirin 81 mg PO DAILY atorvastatin 40 mg PO DAILY buspirone 15 mg PO TID calcipotriene 0.005% 1 appl topical BID carvedilol 3.125 mg PO BID clobetasol 0.05% 1 appl topical DAILY PRN 30 days famotidine 20 mg PO BID fluoxetine 10 mg PO DAILY FreeStyle Cisco 2 Sensor (flash glucose sensor) As directed q14 days MARTA NS hydrocodone-homatropine 5-1.5 mg/5 mL (5 mL) 5 mL PO Q4-6H PRN insulin lispro (Humalog Oziel KwikPen (U-100)) 1 sliding scale dose subcut USEASDIRECTD letrozole 2.5 mg PO DAILY levothyroxine 112 mcg PO DAILY loratadine 10 mg PO DAILY vgnjjlykzfhy-rxts-rpqim acid 18-400 mg-mcg (Spectravite Women) 1 tab PO DAILY ondansetron 4 mg PO Q8H PRN pen needle, diabetic (BD Savita 2nd Gen Pen Needle) As directed sennosides (Natural Senna Laxative) 17.2 mg (2 x 8.6 mg) PO BEDTIME sevelamer carbonate 800 mg PO TID triamcinolone acetonide 0.1% 1 appl topical DAILY Tobacco use date assessed: 02/11/24 Dental Screening Dental Screen Date: 02/11/24 HPI HPI Comments History of Present Illness Details Here w/ dtr who helps w language barrier, The patient is an 84-year-old Wolof speaking female presenting with an acute cough. The cough commenced 10 days ago and has not been accompanied by fever but is associated with a sore throat and significant wheezing. The patient has a history of congestive heart failure but reports that this current cough does not resemble her usual heart failure-related symptoms. She is on dialysis three times per week for end-stage renal disease, and her fluid status is consistently monitored. In addition to the cough, there is increased shortness of breath and recent instability when walking. The patient usually has steady gait but noted she needed to use a walker, which is atypical for her. Last night, the shortness of breath was severe enough to consider seeking emergency care, but home treatment with a cough suppressant and a breathing machine provided some relief. However, there was concern from the caregiver that her breathing difficulties persist despite subjective improvement. The patient has tried Mucinex, Theraflu, and a prescription cough medicine without significant relief this time. She is up to date with her flu vaccination for the present season. Physical Exam Awake alert NAD Sclera and conjunctiva clear bilat Nares clear drainage, turbinates within normal limits, no sinus tenderness with palpation bilat TM intact and clear bilat MMM, pharynx WNL RRR LS coarse ins/exp wheeze throughout, mild sob. After updraft, increased airflow throughout, ins/exp wheeze cont. No cough. I feel better No edema BLE Results - Nasal swab for influenza, COVID-19, and RSV pending. Discussion Notes During the visit, I discussed with the patient and their caregiver the possibility of respiratory infection as a cause of the current symptoms, given the cough and wheezing. We talked about the nasal swab test for influenza, COVID-19, and RSV, noting that results are typically available the same day or by the next day. I explained that if the test is positive for influenza, starting an anti-viral medication could help expedite recovery, whereas if COVID-19 is identified discourage paxlovid due to her renal condition. For RSV, symptomatic treatment is usually advised. Given her increased wheezing, I recommended Combivent QID to assist with breathing. Cont to use RX cough aide & home 02/CPAP. Plan The patient's acute cough and wheezing require close monitoring and assessment for a potential respiratory infection. A nasal swab for flu, COVID-19, and RSV will elucidate the appropriate intervention. Should influenza be confirmed, I will prescribe anti-viral therapy, taking her current dialysis requirements into consideration. In light of her wheezing, I advised Combivent to improve her respiratory status. Her chronic conditions, congestive heart failure, and renal disease, necessitate ongoing dialysis and careful management of fluid levels. Additionally, the medication refill for multivitamins Spectravite will be processed as requested. Patient Instructions - Continue using cough medicine as previously prescribed. - Undergo the nasal swab for detecting influenza, COVID-19, and RSV. - Perform breathing treatments cautiously as instructed, and report any abnormal symptoms. - Monitor for deterioration of symptoms, increased breathing difficulty, or instability, and seek medical attention if necessary. Close interim PCP fu 1 week Patient was informed and verbally consented to the use of an ambient scribe for clinic note documentation during this visit. Total time spent caring for the patient today was 60 minutes. This includes time spent before the visit reviewing the chart, time spent during the visit, and time spent after the visit on documentation, reviewing laboratory results, diagnostic imaging, medications, performing a medically necessary evaluation, counseling on diagnoses, care coordination, ordering appropriate tests, ordering appropriate medications, review of tests performed by other providers, reporting test results with the patient, communication with other healthcare providers. [facility] Medical History Fistula Urge incontinence of urine Type 2 diabetes mellitus Tubular adenoma of colon Systolic left-sided congestive heart failure, NYHA class 2 Pulmonary embolism Protein malnutrition Osteopenia STACEY on CPAP Malignant neoplasm of female breast Lichen sclerosus of vulva Left leg swelling Incontinence Hypothyroidism HTN (hypertension) Hyperlipidemia Hiatal hernia Gastro-esophageal reflux ESRD on dialysis Diabetes mellitus Coronary arteriosclerosis Ischemic cardiomyopathy Congestive heart failure Cancer of left breast CAD (coronary artery disease) Anemia Surgical History H/O colonoscopy H/O: hysterectomy S/P SANDRINE-BSO History of implantable cardiac defibrillator (ICD) Family History Maternal Grandmother Cardiovascular disease Father Lung cancer Social History Housing: House Patient Tobacco Use Status: Never used Tobacco e-Cigarette/Vaping Use: Never Used Second Hand Smoke Exposure: Yes Cognitive needs: No Hearing needs: No Vision needs: No Questionnaire PHQ-9 Over the last 2 weeks, how often have you been bothered by any of the following problems? 1. Little interest or pleasure in doing things: not at all 3. Trouble falling or staying asleep, or sleeping too much: more than half the days 4. Feeling tired or having little energy: more than half the days 5. Poor appetite or overeating: several days Source: Developed by Drs. Bienvenido Aragon, Winnie Givens, Matt Alcantar and colleagues, with an educational justen from [place] [employer]. Thrive Questionnaire Date Thrive assessed: 11/04/24 I am a: Parent/Caregiver What is your living situation today?: I have a steady place to live Within the past 12 months, did the food you bought not last and you didn't have the money to get more?: Never true Within the past 12 months, did you worry whether your food would run out before you got money to buy more?: Never true Do you have trouble paying for medicines?: No Do you have trouble getting transportation to medical appointments?: No Do you have trouble paying your heating and electricity bill?: No Do you have trouble taking care of your child, family member or friend?: No Do you have trouble with day-to-day activities such as bathing, preparing meals, shopping, managing finances, etc.?: Yes Are you currently unemployed and looking for a job?: No Are you interested in more education?: No Please select the resources that you would like help with: None Currently or been in a relationship where the following occur: No concerns reported THRIVE Score: 0 AUDIT C Alcohol Use Questionnaire (AUDIT-C) 1. How often do you have a drink containing alcohol?: Never Total Score: 0 ANDREEA-7 AMB Questionnaire ANDREEA-7 Date ANDREEA - 7 assessed: 11/04/24 Feeling nervous, anxious, or on edge: 0 = Not at all Not being able to stop or control worryin = Not at all Worrying too much about different things: 0 = Not at all Trouble relaxin = Not at all Being so restless that it is hard to sit still: 0 = Not at all Becoming easily annoyed or irritable: 0 = Not at all Feeling afraid as if something awful might happen: 0 = Not at all Total ANDREEA-7 score (0-4 normal; 5-9 mild; 10-14 moderate; 15-21 severe): 0 Source: Developed by Drs. Bienvenido Aragon, Winnie Givens, Matt Alcantar and colleagues, with an educational justen from [place] [employer]. ANDREEA-7 Assessment Billing ANDREEA-7 Assessment Tool: ANDREEA-7 Assessment 95959 Physical exam (Primary Care) Vital Signs: Last Vital Signs Temp 97.9 F 11/04/24 13:03 Pulse 70 11/04/24 13:59 Resp 18 11/04/24 13:03 BP 112/48 L 11/04/24 13:03 Pulse Ox 95 11/04/24 13:59 Oxygen Delivery Method Room Air 11/04/24 13:59 Tobacco/Smoking Status: Tobacco use Status Tobacco use date assessed 02/11/24 11/04/24 12:57 Patient Tobacco Use Status Never used Tobacco 11/04/24 12:57 e-Cigarette/Vaping Use Never Used 11/04/24 12:57 Thrive Assessment: Date of Thrive Assessment Date Thrive assessed 11/04/24 11/04/24 13:57 Currently or been in a relationship where the following occur: No concerns reported Office Procedures Nebulizer Treatment Nebulizer Treatment 28247-Cddsyovnr/MDI RX initial, or Nebulizer Subsequent Treatment Office Meds ipratropium 0.5 mg-albuterol 3 mg (2.5 mg base)/3 mL nebulization soln Performing Provider: ESTELA Lancaster Performing Location: [facility] Administered by: ESTELA Lancaster on 11/04/24 15:08 Dose Route Admin Location Dispensed Lot Number Expiration Date [facility] Software Engineering Project Manager 3 mL inhalation OFFICE 3 mL [id number] 02/21/26 75965-993-94 [employer] Coding Level of Care Code Est Pt Level 5 (42399) Complex EM visit Add On G2211 Diagnoses SOB (shortness of breath) R06.02 Flu-like symptoms R68.89 Systolic left-sided congestive heart failure, NYHA class 2 I50.20 ESRD on dialysis N18.6; Z99.2 CPT Codes Nebulizer Treatment - Nebulizer Treatment, initial or subsequent: 35442-Xmkugjumf/MDI RX initial, or Nebulizer Subsequent Treatment ([id number]) Additional Codes ANDREEA-7 Assessment Billing - ANDREEA-7 Assessment Tool: ANDREEA-7 Assessment 95599 ([id number]) Assessment & Plan Assessment & Plan (1) SOB (shortness of breath): Code(s): R06.02 - Shortness of breath Category: Medical (2) Flu-like symptoms: Code(s): R68.89 - Other general symptoms and signs (3) Systolic left-sided congestive heart failure, NYHA class 2: Code(s): I50.20 - Unspecified systolic (congestive) heart failure Category: Medical (4) ESRD on dialysis: Code(s): N18.6 - End stage renal disease; Z99.2 - Dependence on renal dialysis Category: Medical Plan . Orders: Orders AMB Nebulizer Treatment Today R06.02 - Shortness of breath SARS-CoV2/FLU/RSV Today R06.02 - Shortness of breath, R09.89 - Other specified symptoms and signs involving the circulatory and respiratory systems Medications: New ipratropium-albuterol 20-100 mcg/actuation (Combivent Respimat) space evenly during waking hours 1 puff inhalation QID 4 grams 0RF ipratropium-albuterol 0.5 mg-3 mg(2.5 mg base)/3 mL 3 mL inhalation ONCE PRN 3 mL 0RF wheezing R06.02 - Shortness of breath Refilled bmupxjakwvvc-pebj-vwydl acid 18-400 mg-mcg (Spectravite Women) 1 tab PO DAILY 90 tabs 3RF
[2024-11-04 13:03] VITALS: BP 112/48; PULSE 72; RESP 18; TEMP 36.6; O2SAT 96
--- OUTSIDE RECORDS SUMMARY | 2024-11-04 13:49 | XMS_ITS | Encounter Summary ---
Author Organization [facility] Address [address] [place] [address] Care Team Providers Care Sample Distributor Name Role Phone Hawa Torres MD Primary Care Provider Unavaila Taya Covington MD Unavailable [phone] Chandan Breen Unavailable Rancho Matthews MD Primary Care Provider [phone] [facility], Pcp Primary Care Provider UnavailRancho Brock MD Primary Care Provider [phone] Hawa Torres MD Primary Care Provider Unavaila Hawa Maddox MD Primary Care Provider Unavaila ble [facility], Pcp Primary Care Provider UnavailHawa Barron MD Primary Care Provider Unavaila ble [facility], Pcp Primary Care Provider UnavailHawa Barron MD Primary Care Provider Unavaila ble Melonie Sorensen DO Primary Care Pro vider Unavailable [facility], Pcp Primary Care Provider Hawa Zavala MD Primary Care Provider Unavaila Jessi Cagle [facility] Unavailable [phone] Reason for Visit * Reason Onset Date Comments Appointment-Internal Referral 09/10/2015 Ne phrology Encounter Details Date Type Department Care Team Description 09/10/2015 Telephone Nephrology - [place] [address] [place] [address] [phone] Mc Barragan MD [address] [place] [address] [id number] Appointment-Internal Referral (Nephrology) Social History Tobacco Use Types Packs/Day Years Used Date Smoking Tobacco: Never Smokeless Tobacco: Never Alcohol Use Standard Drinks/Week Comments Not Asked 0 (1 standard drink = 0.6 oz pur e alcohol) Alcohol Habits Answer Date Recorded How often do you have a drink containing alcohol ? Never 11/02/2020 How many drinks containing a lcohol do you have on a typical day when you are drinking? Not asked How often do you have six or more drinks on one occasion? Not asked Physical Activity Answer Date Recorded On average, how many days pe r week do you engage in moderate to strenuous exercise (like walking fast, running, jogging, dancing, swimming, biking, or other activities that cause a light or heavy sweat)? 0 days 11/02/2020 On average, how many minutes do you engage in exercise at this level? 0 min 11/02/2020 Sex Assigned at Date Recorded Not on file Job Start Date Occupation Industry Not on file Not on file Not on file documented as of this encounter Miscellaneous Notes * Telephone Encounter - Marisol Herrera - 09/10/2015 4:22 PM EST Please disregard msg below. * Telephone Encounter - Marisol Herrera - 09/10/2015 9:47 AM EST Patient was referred to Nephrology regarding : referral to Nephrology. Dr. Barragan Reason for referral: chronic renal insufficiency, worsening renal function Priority: 1-2 weeks No opening within time frame. Please help with booking. documented in this encounter Plan of Treatment Not on file documented as of this encounter Visit Diagnoses Not on filedocumented in this encounter Care Teams Sample Distributor Relationship Specialty Start Date End Date Hawa Torres MD PCP - General Internal Medicine 09/09/15 12/19/20 Rancho Matthews MD [address] [place] [id number] PCP - General Internal Medicine 12/20/20 03/22/21 [facility], [address] [address] PCP - General Internal Medicine 03/23/21 04/11/21 Rancho Matthews MD [address] [place] [address] PCP - General Internal Medicine 04/12/21 04/12/21 Hawa Torres MD [address] [place] [address] 287[address] PCP - General Internal Medicine 04/13/21 06/05/21 Hawa Torres MD [address] [place] [address] 49448 PCP - General Internal Medicine 06/06/21 08/07/21 [facility], Pcp [address] [place] [address] PCP - General Internal Medicine 08/08/21 10/27/21 Hawa Torres MD PCP - General Internal Medicine 10/28/21 04/11/22 [facility], Pcp [address] [place] [address] PCP - General Internal Medicine 04/12/22 05/01/22 Hawa Torres MD [address] [place] [id number] PCP - General Internal Medicine 05/02/22 05/21/22 Melonie Sorensen, DO [address] [place] [address] 79133 PCP - General Internal Medicine 05/22/22 09/07/22 [facility], Pcp [address] [place] [address] 44514 PCP - General Internal Medicine 09/08/22 11/08/22 Hawa Torres MD [address] [place] [address] 08404 PCP - General Internal Medicine 11/09/22 Taya Gonzales MD Specialist Cardiology 11/01/20 Chandan Breen PA Specialist Cardiology 11/01/20 02/20/24 Jessi Erwin DNP [address] [place] [address] Specialist Nurse Practitioner [facility] 02/21/24 documented as of this encounter
--- OUTSIDE RECORDS SUMMARY | 2024-11-04 13:49 | XMS_ITS | Encounter Summary ---
Author Organization [facility] Address [address] [place] [address] Care Team Providers Care Tourist Escort Name Role Phone Taya Gonzales MD Unavailable [phone] Chandan Breen Unavailable Hwaa Torres MD Primary Care Provider Unavaila ble [facility], Pcp Primary Care Provider UnavailHawa Barron MD Primary Care Provider Unavaila ble Melonie Sorensen DO Primary Care Pro vider Unavailable [facility], Pcp Primary Care Provider UnavailHawa Barron MD Primary Care Provider Unavaila ble Jessi Erwin DNP Unavailable [phone] Reason for Visit * Reason Onset Date Comments Faxed Refill 12/22/2021 Encounter Details Date Type Department Care Team Description 12/22/2021 Refill Endocrinology - [place] [address] [place] [address] Mia Osborn PA-C [address] [place] [address] Faxed Refill Social History Tobacco Use Types Packs/Day Years Used Date Smoking Tobacco: Passive Smo ke Exposure - Never Smoker Smokeless Tobacco: Never Comments: smokes in h ome Alcohol Use Standard Drinks/Week Comments No 0 (1 standard drink = 0.6 oz [...] file Not on file Not on file COVID-19 Exposure Response Date Recorded In the last 10 days, have yo u been in contact with someone who was confirmed or suspected to have Coronavirus/COVID-19? No / Unsure 12/22/2021 1:06 PM EDT documented as of this encounter Miscellaneous Notes * Telephone Encounter - Nora Ackerman M.A. - 12/22/2021 11:32 AM EDT Jim 12/15/21 Ov 02/14/22 Lab Results Component Value Date HGBA1C 8.3 10/20/2021 MALBUR 437.0 11/11/2021 MALBCR 1409.6 11/11/2021 CHOL 138 06/25/2020 LDL 54 06/25/2020 HDL 55 06/25/2020 TRIG 145 06/25/2020 GLU 286 12/02/2021 CREAT 2.92 12/02/2021 * Telephone Encounter - Adriana Mijares - 12/22/2021 8:38 AM EDT [id number]} Did you check the Pharmacy information above?: YES Patient wants: 90 -day supply Is this a mail order prescription request ? NO If the refill is from a FAXED refill request what is the RX # listed on the fax? [id number] Patients current insurance carrier is: Payor: [facility] FFS / Plan: [employer] MEDICARE PREMIUM $10 PLANO / Product Type: MEDICARE [id number] documented in this encounter Plan of Treatment Not on file documented as of this encounter Visit Diagnoses Diagnosis Uncontrolled type 2 diabetes mellitus with hyperglycemia (HCC) documented in this encounter Care Teams Tourist Escort Relationship Specialty Start Date End Date Hawa Torres MD PCP - General Internal Medicine 10/28/21 04/11/22 [facility], Pcp PCP - General Internal Medicine 04/12/22 05/01/22 Hawa Torres MD PCP - General Internal Medicine 05/02/22 05/21/22 Melonie Sorensen DO PCP - General Internal Medicine 05/22/22 09/07/22 [facility], Pcp PCP - General Internal Medicine 09/08/22 11/08/22 Hawa Torres MD PCP - General Internal Medicine 11/09/22 Taya Gonzales MD Specialist Cardiology 11/01/20 Chandan Breen PA Specialist Cardiology 11/01/20 02/20/24 Jessi Erwin DNP Specialist Nurse Practitioner Family 02/21/24 documented as of this encounter
--- OUTSIDE RECORDS SUMMARY | 2024-11-04 13:49 | XMS_ITS | Encounter Summary ---
Author Organization [facility] Address [address] [place] [address] Care Team Providers Care Clam Shucking Machine Tender Name Role Phone Salomón Lou MD Primary Care Provider Unavail able Hawa Torres MD Primary Care Provider Unavaila Taya Covington MD Unavailable [phone] Chandan Breen Unavailable Rancho Matthews MD Primary Care Provider [phone] [facility], [facility] Primary Care Provider UnavailRancho Brock MD Primary Care Provider [phone] Hawa Torres MD Primary Care Provider Unavaila Hawa Maddox MD Primary Care Provider Unavaila ble [facility], Pcp Primary Care Provider UnavailHawa Barron MD Primary Care Provider Unavaila elpidio [facility], Pcp Primary Care Provider Hawa Zavala MD Primary Care Provider Unavaila ble Melonie Sorensen DO Primary Care Pro vider Unavailable [facility], Pcp Primary Care Provider UnavailHawa Barron MD Primary Care Provider Unavaila Jessi Cagle [facility] Unavailable [phone] Encounter Details Date Type Department Care Team Description 10/15/2014 Orders Only Cardiology - [address] [address] Elio Solano MD [address] [place] [address] [address] [place] [address] CKD (chronic kidney disease) requiring chronic dialysis (Primary Dx) Social History Tobacco Use Types Packs/Day Years [...] on file documented as of this encounter Plan of Treatment Not on file documented as of this encounter Results * (ABNORMAL) BASIC METABOLIC PANEL (10/19/2014 11:38 AM EST) [facility] GLUCOSE 288(H) 70 - 100 mg/dL 10/19/2014 2:52 PM [facility] Comment: Reference range applicable to fasting specimens only Based on recommendations from the ADA and AACE, the fasting glucose reference range has been changed to 70-100 mg/dL. ??This change is effective February 07, 2010 BUN 74(H) 5 - 25 mg/dL 10/19/2014 2:52 PM [facility] CREAT 1.8(H) 0.7 - 1.5 mg/dL 10/19/2014 2:52 PM [facility] GFR 29(L) >60 10/19/2014 2:52 PM [facility] Comment: If patient is -[place], multiply result by 1.21 Chronic Kidney Disease: < 60 ml/min/1.73 square meters Kidney Failure: < 15 ml/min/1.73 square meters Sodium 140 133 - 145 mEq/L 10/19/2014 2:52 PM [facility] Potassium 4.6 3.5 - 5.2 mEq/L 10/19/2014 2:52 PM EST [facility] Chloride 98 96 - 108 mEq/L 10/19/2014 2:52 PM EST [facility] CO2 35.2(H) 21.0 - 32.0 mEq/L 10/19/2014 2:52 PM EST [facility] CALCIUM 10.5 8.5 - 10.5 mg/dL 10/19/2014 2:52 PM EST [facility] 10/19/2014 11:3 8 AM EST 10/19/2014 11:39 AM EST Elio Solano MD LAB [facility] [address] [place] [address] documented in this encounter Visit Diagnoses Diagnosis CKD (chronic kidney disease) requiring chronic dialysis (HCC)- Primary End stage renal disease documented in this encounter Care Teams Clam Shucking Machine Tender Relationship Specialty Start Date End Date Salomón Lou MD PCP - General Internal Medicine 09/01/14 09/08/15 Hawa Torres MD PCP - General Internal Medicine 09/09/15 12/19/20 Rancho Matthews MD [address] [place] [address] PCP - General Internal Medicine 12/20/20 03/22/21 [facility], Pcp [address] [place] [address] PCP - General Internal Medicine 03/23/21 04/11/21 Rancho Matthews MD [address] [place] [address] PCP - General Internal Medicine 04/12/21 04/12/21 Hawa Torres MD [address] [place] [address] PCP - General Internal Medicine 04/13/21 06/05/21 Hawa Torres MD [address] [place] [address] PCP - General Internal Medicine 06/06/21 08/07/21 [facility], Pcp [address] [place] [address] PCP - General Internal Medicine 08/08/21 10/27/21 Hawa Torres MD PCP - General Internal Medicine 10/28/21 04/11/22 [facility], Pcp [address] [place] [address] PCP - General Internal Medicine 04/12/22 05/01/22 Hawa Torres MD [address] [place] [address] PCP - General Internal Medicine 05/02/22 05/21/22 Melonie Sorensen, DO [address] [place] [address] PCP - General Internal Medicine 05/22/22 09/07/22 [facility], Pcp [address] [place] [address]88 PCP - General Internal Medicine 09/08/22 11/08/22 Hawa Torres MD [address] [place] [address]208 PCP - General Internal Medicine 11/09/22 Taya Gonzales MD Specialist Cardiology 11/01/20 Chandan Breen PA Specialist Cardiology 11/01/20 02/20/24 Jessi Erwin, KITTY [address] [place] [address] Specialist Nurse Practitioner [facility] 02/21/24 documented as of this encounter
--- OUTSIDE RECORDS SUMMARY | 2024-11-04 13:49 | XMS_ITS | Clinical Summary ---
Author Organization [facility] Address [address] [place] [address] Phone Care Team Providers Care Multiple Drum Sander Name Role Phone Unavailable Primary Care Provider Unavailabl e Medications calcitriol (ROCALTROL) 0.25 MCG capsule TOME 1 CAPSULA POR VIA ORAL TODOS [place] 90 capsule 3 08/08/2021 Active sevelamer carbonate (RENVELA) 800 MG tablet TOME CAMERON TABLETA JOANN VECES AL WOOD CON LAS COMIDAS 270 tablet 1 02/13/2024 Active Encounters Date Type Department Care Team Description 11/03/2024 Treatment [facility] [address] [address] Ryan Graf MD 10/27/2024 Treatment [facility] [address] [address] Ryan Graf MD 10/20/2024 Treatment [facility] [address] [address] Ryan Graf MD 10/13/2024 Treatment [facility] [address] [address] Ryan Graf MD 10/06/2024 Treatment [facility] [address] [address] Ryan Graf MD 09/29/2024 Treatment [facility] [address] [address] Ryan Graf MD 09/16/2024 Treatment [facility] [address] [address] Ryan Graf MD 09/10/2024 Orders Only [facility] [address] [address] Ryan Graf MD 09/08/2024 Treatment [facility] [address] [address] Ryan Graf MD 09/01/2024 Treatment [facility] [address] [address] Ryan Graf MD 08/25/2024 Treatment [facility] [address] [address] Ryan Graf MD 08/11/2024 Treatment [facility] [address] [address] Ryan Graf MD 08/04/2024 Treatment [facility] [address] [address] Ryan Graf MD from Last 3 Months Social History Tobacco Use Types Packs/Day Years Used Date Smoking Tobacco: Never Assessed Comments Unknown Sex and Gender Information Value Date Recorded Sex Assigned at Not on file Legal Sex Female 5:11 PM EST Gender Identity Not on file Sexual Orientation Not on file Plan of Treatment Health Maintenance Due Date Last Done Comments Hepatitis B Vaccine (1 of 5 - Risk Dialysis 4-dose series) 1960 Diabetes: Ophthalmology Exam 03/18/2021 Diabetes: Pedal Pulse Checked 03/18/2021 Diabetes: Sensory Foot Exam 03/18/2021 Diabetes: Visual Foot Exam 03/18/2021 Diabetes: Hemoglobin A1C 11/28/2022 08/30/2022 Influenza Vaccine (#1) 2024 , 07/24/2019, 08/06/2018, Additional history exists Pneumococcal Vaccine: 65+ Years Completed 03/10/2015, 08/11/2009, 08/03/2005 Procedures Procedure Name Priority Date/Time Associated Diagnosis Comments HEMOGLOBIN AND HEMATOCRIT, BLOOD Routine 09/10/2024 3:00 AM EST SPECIAL CHEMISTRY Routine 08/30/2022 6:0 0 AM EST from Last 3 Months or Most Recently Relevant to Health Maintenance Results * (ABNORMAL) Hemoglobin and hematocrit (09/10/2024 3:00 AM EST) Hgb 9.8(L) 11.2 - 15.7 g/dL [facility] Hematocrit 31.4(L) 34.1 - 44.9 % [facility] Hemoglobin x 3 29.4(L) 33.6 - 47.1 g/dL [facility] 09/10/2024 3:00 AM EST 09/11/2024 1:18 PM EST Ryan Graf MD LAB BLOOD ORDERABLES Final Resul t [facility] [address] [place] [address] * (ABNORMAL) SPECIAL CHEMISTRY (08/30/2022 6:00 AM EST) Hemoglobin A1C 7.3(H) 4.8 - 5.9 % [facility] 08/30/2022 6:00 AM EST 08/31/2022 6:56 AM EST Narrative [facility] - 08/30/2022 6:00 AM EST Unless otherwise specified, test(s) performed at: [facility], [address] [place], [place] [id number] MANPOWER DEVELOPMENT ADVISOR: Emery Muller M.D. For any questions, please call customer service at FREQUENCY:MONTHLY Resulting Agency Comment Specimen source: Blood Jt Mckeon MD LAB BLOOD BANK TEST ORDERABLES Final Result [facility] from Last 3 Months or Most Recently Relevant to Health Maintenance Insurance [facility]
--- OUTSIDE RECORDS SUMMARY | 2024-11-04 13:49 | XMS_ITS | Encounter Summary ---
Author Organization [facility] Address [address] [place] [address] Care Team Providers Care Rn Occupational Name Role Phone Salomón Lou MD Primary Care Provider Unavail able Hawa Torres MD Primary Care Provider Unavaila Taya Covington MD Unavailable [phone] Chandan Breen Unavailable Rancho Matthews MD Primary Care Provider [phone] [facility], [facility] Primary Care Provider UnavailRancho Brock MD Primary Care Provider [phone] Hawa Torres MD Primary Care Provider Unavaila Hawa Maddox MD Primary Care Provider Unavaila ble [facility], Pcp Primary Care Provider UnavailHawa Barron MD Primary Care Provider Unavaila ble [facility], Pcp Primary Care Provider UnavailHawa Barron MD Primary Care Provider Unavaila Melonie Rojas DO Primary Care Pro vider Unavailable [facility], Pcp Primary Care Provider UnavailHawa Barron MD Primary Care Provider Unavaila Jessi Cagle [facility] Unavailable [phone] Encounter Details Date Type Department Care Team Description 12/15/2014 Hospital Medical Records [address] [place] [address] Social History Tobacco Use Types Packs/Day Years Used Date Smoking Tobacco: Never Passive Smoke Exposure: Yes Smokeless Tobacco: Never Comments: smokes in h [...] on filedocumented in this encounter Care Teams Rn Occupational Relationship Specialty Start Date End Date Salomón Lou MD PCP - General Internal Medicine 09/01/14 09/08/15 Hawa Torres MD PCP - General Internal Medicine 09/09/15 12/19/20 Rancho Matthews MD [address] [place] [address] PCP - General Internal Medicine 12/20/20 03/22/21 [facility], Pcp [address] [place] [address] PCP - General Internal Medicine 03/23/21 04/11/21 Rancho Matthews MD [address] [place] [address] PCP - General Internal Medicine 04/12/21 04/12/21 Hawa Torres MD [address] [place] [address] PCP - General Internal Medicine 04/13/21 06/05/21 Hawa Torres MD [address] [place] [address] PCP - General Internal Medicine 06/06/21 08/07/21 [facility], Pcp [address] [place], [place] [address] [place] [address] PCP - General Internal Medicine 08/08/21 10/27/21 Hawa Torres MD PCP - General Internal Medicine 10/28/21 04/11/22 [facility], Pcp [address] [place] [address] PCP - General Internal Medicine 04/12/22 05/01/22 Hawa Torres MD [address] [place] [address] PCP - General Internal Medicine 05/02/22 05/21/22 Melonie Sorensen DO [address] [place] [address] PCP - General Internal Medicine 05/22/22 09/07/22 [facility], [address] [address] PCP - General Internal Medicine 09/08/22 11/08/22 Hawa Torres MD [address] [place] [address] PCP - General Internal Medicine 11/09/22 Taya Gonzales MD Specialist Cardiology 11/01/20 Chandan Breen PA Specialist Cardiology 11/01/20 02/20/24 Jessi Erwin DNP [address] [place] [address] Specialist Nurse Practitioner [facility] 02/21/24 documented as of this encounter
--- OUTSIDE RECORDS SUMMARY | 2024-11-04 13:49 | XMS_ITS | Encounter Summary ---
Author Organization [facility] Address [address] [place] [address] Care Team Providers Care Order Builder Loader Name Role Phone Taya Gonzales MD Unavailable [phone] Chandan Breen Unavailable Hawa Torres MD Primary Care Provider Unavailamaya magallanes [facility], Pcp Primary Care Provider Hawa Zavala MD Primary Care Provider Unavaila Melonie Rojas DO Primary Care Pro vider [facility], Pcp Primary Care Provider Hawa Zavala MD Primary Care Provider Unavaila Jessi Cagle DNP Unavailable [phone] Encounter Details Date Type Department Care Team Description 02/14/2022 [facility] Report Medical Records [address] [place] [address] Abstract, Provider Social History Tobacco Use Types Packs/Day Years [...] Recorded In the last 10 days, have braxton bucio been in contact with someone who was confirmed or suspected to have Coronavirus/COVID-19? No / Unsure 02/14/2022 3:24 PM EDT documented as of this encounter Plan of Treatment Not on file documented as of this encounter Visit Diagnoses Not on filedocumented in this encounter Care Teams Order Builder Loader Relationship Specialty Start Date End Date Hawa Torres MD PCP - General Internal Medicine 10/28/21 04/11/22 [facility], Pcp PCP - General Internal Medicine 04/12/22 05/01/22 Hawa Torres MD PCP - General Internal Medicine 05/02/22 05/21/22 Melonie Sorensen DO PCP - General Internal Medicine 05/22/22 09/07/22 [facility], Pcp PCP - General Internal Medicine 09/08/22 11/08/22 Hawa Torres MD PCP - General Internal Medicine 11/09/22 Taya Gonzales MD Specialist Cardiology 11/01/20 Chandan Breen PA Specialist Cardiology 11/01/20 02/20/24 Jessi Erwin DNP Specialist Nurse Practitioner [facility] 02/21/24 documented as of this encounter
--- OUTSIDE RECORDS SUMMARY | 2024-11-04 13:49 | XMS_ITS | Encounter Summary ---
Author Organization [facility] Address [address] [place] [address] Care Team Providers Care Biological Plant Operator Name Role Phone Taya Gonzales MD Unavailable [phone] Chandan Breen Unavailable Hawa Torres MD Primary Care Provider Unavaila elpidio [facility], Pcp Primary Care Provider UnavailHawa Barron MD Primary Care Provider Unavaila ble Melonie Sorensen DO Primary Care Pro vider Unavailable [facility], Pcp Primary Care Provider UnavailHawa Barron MD Primary Care Provider Unavaila ble Jessi Erwin DNP Unavailable [phone] Encounter Details Date Type Department Care Team Description 11/04/2021 Pt. Non Urgent Medical Question General Surgery - [address] [address] Julio C Lawler MD [address] [place] [address] Social History Tobacco Use Types Packs/Day Years [...] Exposure Response Date Recorded In the last month, have you been in contact with someone who was confirmed or suspected to have Coronavirus / COVID-19? No / Unsure 11/03/2021 3:24 PM EST documented as of this encounter Plan of Treatment Not on file documented as of this encounter Visit Diagnoses Not on filedocumented in this encounter Care Teams Biological Plant Operator Relationship Specialty Start Date End Date Hawa Torres MD PCP - General Internal Medicine 10/28/21 04/11/22 [facility] Pcp PCP - General Internal Medicine 04/12/22 05/01/22 Hawa Torres MD PCP - General Internal Medicine 05/02/22 05/21/22 Melonie Sorensen DO PCP - General Internal Medicine 05/22/22 09/07/22 [facility], Pcp PCP - General Internal Medicine 09/08/22 11/08/22 Hawa Torres MD PCP - General Internal Medicine 11/09/22 Taya Gonzales MD Specialist Cardiology 11/01/20 Chandan Breen PA Specialist Cardiology 11/01/20 02/20/24 Jessi Erwin DNP Specialist Nurse Practitioner Family 02/21/24 documented as of this encounter
--- OUTSIDE RECORDS SUMMARY | 2024-11-04 13:50 | XMS_ITS | Encounter Summary ---
Author Organization [facility] Address [address] [place] [address] Care Team Providers Care Lathe Puller Name Role Phone Taya Gonzales MD Unavailable [phone] Chandan Breen Unavailable Rancho Matthews MD Primary Care Provider [phone] [facility], Pcp Primary Care Provider UnavailRancho Brock MD Primary Care Provider [phone] Hawa Torres MD Primary Care Provider Unavaila Hawa Maddox MD Primary Care Provider Unavaila ble [facility], Pcp Primary Care Provider UnavailHawa Barron MD Primary Care Provider Unavaila ble [facility], Pcp Primary Care Provider UnavailHawa Barron MD Primary Care Provider Unavaila ble Melonie Sorensen DO Primary Care Pro vider Unavailable [facility], Pcp Primary Care Provider UnavailHawa Barron MD Primary Care Provider Unavaila ble Jessi Erwin [facility] Unavailable [phone] Encounter Details Date Type Department Care Team Description 03/18/2021 Pt. Non Urgent Medical Question Adult Medicine [address] [id number] Rancho Matthews MD [address] [place] [address] Social History Tobacco Use Types Packs/Day Years [...] have Coronavirus / COVID-19? No / Unsure 03/10/2021 3:56 PM EDT documented as of this encounter Miscellaneous Notes * Telephone Encounter - Arabella Carrion C.M.A - 03/18/2021 3:46 PM EDTFrom: Dana Grant To: Tammi Matthews Sent: 03/18/2021 3:17 PM EDT Subject: Weight loss My mom has lost 13 lbs in two weeks since her diacharge. Should this be of concern? She is complaining only of leg weakness. A side from that her other vitals are looking good. documented in this encounter Plan of Treatment Not on file documented as of this encounter Visit Diagnoses Not on filedocumented in this encounter Care Teams Lathe Puller Relationship Specialty Start Date End Date Rancho Matthews MD [address] [place] [address] PCP - General Internal Medicine 12/20/20 03/22/21 [facility], Pcp [address] [place] [address] PCP - General Internal Medicine 03/23/21 04/11/21 Rancho Matthews MD [address] [place] [address] PCP - General Internal Medicine 04/12/21 04/12/21 Hawa Torres MD [address] [place] [address], [place] [address] PCP - General Internal Medicine 04/13/21 06/05/21 Hawa Torres MD [address] [place] [address], [place] [address] PCP - General Internal Medicine 06/06/21 08/07/21 [facility], Pcp [address] [place] [address], [place] [address] PCP - General Internal Medicine 08/08/21 10/27/21 Hawa Torres MD [address] [place] [address], [place] [address] PCP - General Internal Medicine 10/28/21 04/11/22 [facility], Pcp [address] [place] [address], [place] [address] PCP - General Internal Medicine 04/12/22 05/01/22 Hawa Torres MD [address] [place] [address], [place] [address] PCP - General Internal Medicine 05/02/22 05/21/22 Melonie Sorensen, DO [address] [place] [address] PCP - General Internal Medicine 05/22/22 09/07/22 [facility], Pcp [address] [place] [address], [place] [address] PCP - General Internal Medicine 09/08/22 11/08/22 Hawa Torres MD [address] [place] [address] PCP - General Internal Medicine 11/09/22 Taya Gonzales MD Specialist Cardiology 11/01/20 Chandan Breen PA Specialist Cardiology 11/01/20 02/20/24 Jessi Erwin DNP [address] [place] [address], [place] [address] Specialist Nurse Practitioner Family 02/21/24 documented as of this encounter
--- OUTSIDE RECORDS SUMMARY | 2024-11-04 13:50 | XMS_ITS | Encounter Summary ---
Author Organization [facility] Address [address] [place] [address] Care Team Providers Care Heddler Tier Name Role Phone Hawa Torres MD Primary Care Provider UnavailTaya Lira MD Unavailable [phone] Chandan Breen Unavailable Rancho Matthews MD Primary Care Provider + [facility], [facility] Primary Care Provider UnavailRancho Brock MD Primary Care Provider [phone] Hawa Torres MD Primary Care Provider Unavaila Hawa Maddox MD Primary Care Provider Unavaila elpidio [facility], Pcp Primary Care Provider UnavailHawa Barron MD Primary Care Provider Unavaila ble [facility], Pcp Primary Care Provider Hawa Zavala MD Primary Care Provider Unavaila Melonie Rojas DO Primary Care Pro vider Unavailable [facility], Pcp Primary Care Provider Hawa Zavala MD Primary Care Provider Unavaila Jessi Cagle [facility] Unavailable [phone] Encounter Details Date Type Department Care Team Description 04/29/2020 Hospital Medical Records [address] [place] [address] Juan Ramon Egan Social History Tobacco Use Types Packs/Day Years [...] on filedocumented in this encounter Care Teams Heddler Tier Relationship Specialty Start Date End Date Hawa Torres MD PCP - General Internal Medicine 09/09/15 12/19/20 Rancho Matthews MD [address] [place] [address] PCP - General Internal Medicine 12/20/20 03/22/21 [facility], Pcp [address] [place] [address] PCP - General Internal Medicine 03/23/21 04/11/21 Rancho Matthews MD [address] [place] [address] PCP - General Internal Medicine 04/12/21 04/12/21 Hawa Torres MD [address] [place] [address] PCP - General Internal Medicine 04/13/21 06/05/21 Hawa Torres MD [address] [place] [address] PCP - General Internal Medicine 06/06/21 08/07/21 [facility], Pcp [address] [place] [address] PCP - General Internal Medicine 08/08/21 10/27/21 Hawa Torres MD PCP - General Internal Medicine 10/28/21 04/11/22 [facility], Pcp [address] [place] [address] PCP - General Internal Medicine 04/12/22 05/01/22 Hawa Torres MD [address] [place] [address] PCP - General Internal Medicine 05/02/22 05/21/22 Melonie Sorensen DO [address] [place] [address] PCP - General Internal Medicine 05/22/22 09/07/22 [facility], Pcp [address] [place] [address] PCP - General Internal Medicine 09/08/22 11/08/22 Hawa Torres MD [address] [place], [place] [phone] PCP - General Internal Medicine 11/09/22 Taya Gonzales MD Specialist Cardiology 11/01/20 Chandan Breen PA Specialist Cardiology 11/01/20 02/20/24 Jessi Erwin, KITTY [address] [place] [address] Specialist Nurse Practitioner [facility] 02/21/24 documented as of this encounter
--- OUTSIDE RECORDS SUMMARY | 2024-11-04 13:50 | XMS_ITS | Encounter Summary ---
Author Organization [facility] Address [address] [place] [address] Care Team Providers Care Generator Operator Straight Bevel Gear Name Role Phone Taya Gonzales MD Unavailable [phone] Chandan Breen Unavailable Hawa Torres MD Primary Care Provider Unavaila ble [facility], Pcp Primary Care Provider UnavailHawa Barron MD Primary Care Provider Unavaila ble [facility], Pcp Primary Care Provider UnavailHawa Barron MD Primary Care Provider Unavaila ble Edwin Sorensenabela DO Primary Care Pro vider Unavailable [facility], Pcp Primary Care Provider Hawa Zavala MD Primary Care Provider Unavaila ble Jessi Erwin DNP Unavailable [phone] Reason for Visit * Reason Onset Date Comments other 06/06/2021 Encounter Details Date Type Department Care Team Description 06/06/2021 Telephone Cardio PVC POC 154 [address] [facility] [address] [place] [address] Taya Gonzales MD [address] [place] [address] [phone] other Social History Tobacco Use Types Packs/Day Years [...] have Coronavirus / COVID-19? No / Unsure 06/06/2021 10:38 AM EDT documented as of this encounter Miscellaneous Notes * Telephone Encounter - FLORY Edward - 06/06/2021 12:25 PM EDT Spoke to the daughter on the telephone, she does admit that her mother's been having some shortnessof breath, but states her biggest complaint seems to be fatigue. She otherwise denies the patient experiencing any other cardiac complaints. She has gained 5 pounds in a week, and though daughter tries her best to make sure the patient maintains low salt intake she knows she cannot watch the patient 24 hours a day. At this time we will try increasing the patient's torsemide for a couple days to 1-1/2 tablet. The daughter will continue to monitor for any symptoms or changes, and will also call the patient's PCPs office for continued valuation for her fatigue. She knows to call us if there are any other questions or concerns. Also discussed with the daughter that her device interrogation overall looked okay. * Telephone Encounter - Mara Mcgarry C.M.A. - 06/06/2021 11:12 AM EDT Patient in for routine BiV ICD follow-up complaining of increased fatigue & SOB. Daughter says up 5 lbs. Device follow-up was WNL. Thoracic impedance was stabel. I have scanned in for your review. . documented in this encounter Plan of Treatment Not on file documented as of this encounter Visit Diagnoses Not on filedocumented in this encounter Care Teams Generator Operator Straight Bevel Gear Relationship Specialty Start Date End Date Hawa Torres MD PCP - General Internal Medicine 06/06/21 08/07/21 [facility], Pcp PCP - General Internal Medicine 08/08/21 10/27/21 Hawa Torres MD PCP - General Internal Medicine 10/28/21 04/11/22 [facility], Pcp PCP - General Internal Medicine 04/12/22 05/01/22 Hawa Torres MD PCP - General Internal Medicine 05/02/22 05/21/22 Melonie Sorensen DO PCP - General Internal Medicine 05/22/22 09/07/22 [facility], Pcp PCP - General Internal Medicine 09/08/22 11/08/22 Hawa Torres MD PCP - General Internal Medicine 11/09/22 Taya Gonzales MD Specialist Cardiology 11/01/20 Chandan Breen PA Specialist Cardiology 11/01/20 02/20/24 Jessi Erwin DNP Specialist Nurse Practitioner Family 02/21/24 documented as of this encounter
--- OUTSIDE RECORDS SUMMARY | 2024-11-04 13:50 | XMS_ITS | Encounter Summary ---
Author Organization [facility] Address [address] [place] [phone] Phone Care Team Providers Care Claim Review Medical Director Name Role Phone Unavailable Primary Care Provider Unavailabl e Encounter Details Date Type Department Care Team (Late st Contact Info) Description 10/20/2024 Treatment [facility] [address] [phone] Aldo Rice MD [address] [address] Social History Tobacco Use Types Packs/Day Years Used Date Smoking Tobacco: Never Assessed Comments Unknown Sex and Gender Information Value Date Recorded Sex Assigned at Not on file Legal Sex Female 5:11 PM EST Gender Identity Not on file Sexual Orientation Not on file documented as of this encounter Miscellaneous Notes * Dialysis Note - Aldo Rice MD - 10/20/2024 12:00 AM EST Patient: Dana Grant : 1940 Note Type: Dialysis Rounds-Basic Service Date: 10/20/2024 This patient was personally seen for a basic visit as part of routine monthly dialysis care for end stage renal disease. Attending Biazzi Nitrator Operator: ALDO RICE MD Dialysis Location: [facility] Schedule: Shift: 1 HOME MEDICATIONS Current [facility] Epic Outpatient Medications calcitriol (ROCALTROL) 0.25 MCG capsule TOME 1 CAPSULA POR VIA ORAL TODOS LOS BERNSTEIN Start Date: 08/08/2021 sevelamer carbonate (RENVELA) 800 MG tablet TOME CAMERON TABLETA JOANN VECES AL WOOD CON LAS COMIDAS Start Date: 02/13/2024 Current [facility] Epic Allergies Allergen: Not on File ANEMIA ASSESSMENT Hgb 9.8 (09/10/24) Signed by: ALDO RICE MD on 10/20/2024 at 08:07:00 AM documented in this encounter Plan of Treatment Not on file documented as of this encounter Visit Diagnoses Not on filedocumented in this encounter
--- OUTSIDE RECORDS SUMMARY | 2024-11-04 13:50 | XMS_ITS | Encounter Summary ---
Author Organization [facility] Address [address] [place] [phone] Phone Care Team Providers Care Web Development Consultant Name Role Phone Unavailable Primary Care Provider Unavailabl e Encounter Details Date Type Department Care Team ([facility] st Contact Info) Description 10/13/2024 Treatment [facility] [address] [phone] Aldo Rice MD [address] [address] Social History Tobacco Use Types Packs/Day Years Used Date Smoking Tobacco: Never Assessed Comments Unknown Sex and Gender Information Value Date Recorded Sex Assigned at Not on file Legal Sex Female 5:11 PM EST Gender Identity Not on file Sexual Orientation Not on file documented as of this encounter Miscellaneous Notes * Dialysis Note - Aldo Rice MD - 10/13/2024 12:00 AM EST Patient: Dana Grant : 1940 Note Type: Dialysis Rounds-Basic Service Date: 10/13/2024 This patient was personally seen for a basic visit as part of routine monthly dialysis care for end stage renal disease. Attending Midwife: ALDO RICE MD Dialysis Location: [facility] Schedule: Shift: 1 HOME MEDICATIONS Current [...] (09/10/24) Signed by: ALDO RICE MD on 10/13/2024 at 08:50:37 AM documented in this encounter Plan of Treatment Not on file documented as of this encounter Visit Diagnoses Not on filedocumented in this encounter
--- OUTSIDE RECORDS SUMMARY | 2024-11-04 13:50 | XMS_ITS | Encounter Summary ---
Author Organization [facility] Address [address] [place] [address] Care Team Providers Care Nursing Home Manager Name Role Phone Taya Gonzales MD Unavailable [phone] Chandan Breen Unavailable Hawa Torres MD Primary Care Provider Unavailamaya magallanes [facility], Pcp Primary Care Provider Hawa Zavala MD Primary Care Provider Unavaila Melonie Rojas DO Primary Care Pro vider Unavailable [facility], Pcp Primary Care Provider Hawa Zavala MD Primary Care Provider Unavaila Jessi Cagle DNP Unavailable [phone] Encounter Details Date Type Department Care Team Description 03/09/2022 Cloth Shearing Supervisor Report Medical Records [address] [place] [phone] Hawa Torres MD Social History Tobacco Use Types Packs/Day Years [...] suspected to have Coronavirus/COVID-19? No / Unsure 02/22/2022 3:48 PM EDT documented as of this encounter Plan of Treatment Not on file documented as of this encounter Visit Diagnoses Not on filedocumented in this encounter Care Teams Nursing Home Manager Relationship Specialty Start Date End Date Hawa Torres MD PCP - General Internal Medicine 10/28/21 04/11/22 [facility], Pcp PCP - General Internal Medicine 04/12/22 05/01/22 Hawa Torres MD PCP - General Internal Medicine 05/02/22 05/21/22 Melonie Sorensen DO PCP - General Internal Medicine 05/22/22 09/07/22 [facility], Pcp PCP - General Internal Medicine 09/08/22 11/08/22 Hawa Torres MD PCP - General Internal Medicine 11/09/22 Taya Gonzales MD Specialist Cardiology 11/01/20 Chandan Breen PA Specialist Cardiology 11/01/20 02/20/24 Jessi Erwin DNP Specialist Nurse Practitioner Family 02/21/24 documented as of this encounter
--- OUTSIDE RECORDS SUMMARY | 2024-11-04 13:50 | XMS_ITS | Encounter Summary ---
Author Organization [facility] Address [address] [place] [address] Care Team Providers Care Computer Artist Name Role Phone Unavailable Primary Care Provider Unavailabl e Encounter Details Date Type Department Care Team (Late Contact Info) Description 10/14/2024 10:25 PM EST Ancillary Procedure [facility] [address] [phone] Social History Tobacco Use Types Packs/Day Years Used Date Smoking Tobacco: Never Smokeless Tobacco: Never Alcohol Use Standard Drinks/Week Comments Never 0 (1 standard drink = 0.6 oz pur e alcohol) Comments Unknown Sex and Gender Information Value Date Recorded Sex Assigned at Not on file Legal Sex Female 12:17 AM EST Gender Identity Not on file Sexual Orientation Not on file documented as of this encounter Plan of Treatment Upcoming Encounters Date Type Department Care Team (Late Contact Info) Description 02/04/2025 3:30 PM EDT Ancillary Procedure [facility] 154 300 [facility] 154 [place] [address] 02/19/2025 3:40 PM EDT Office Visit Endocrinology - [place] [address] [place] [phone] Lucille Clarke PA [address] [place] [address] 03/31/2025 3:15 PM EDT Office Visit [facility] Hematology Oncology [address] [place] [phone] Cullen Gibson MD [address] [place] [phone] 04/09/2025 3:40 PM EDT Appointment Radiology Department - [address] [phone] 04/23/2025 10:50 AM EDT Office Visit [facility] [address] [facility] 154 [place] [phone] Taya Gonzales MD 300 [place] [address] documented as of this encounter Procedures Procedure Name Priority Date/Time Associated Diagnosis Comments CARDIAC DEVICE CHECK- REMOTE- MURJ Routine 10/14/2024 10:24 PM EST documented in this encounter Results * Cardiac device check - Remote- MURJ (10/14/2024 10:24 PM EST) Date Time Interrogation Session [id number] CV DEVICE CHECK Type Interrogation Session Remote Scheduled CV DEVICE CHECK Implantable Pulse Generator Ships Equipment Engineer [employer] CV DEVICE CHECK Implantable Pulse Generator Type RESEARCH MANUFACTURING OPERATOR-D CV DEVICE CHECK Implantable Pulse Generator Model [id number] [facility]() CV DEVICE CHECK Implantable Pulse Generator Serial Number [id number] CV DEVICE CHECK Implantable Pulse Generator Implant Date 20240110 CV DEVICE CHECK Battery Remaining Percentage 83.00 CV DEVICE CHECK Battery Remaining Longevity 53.0 CV DEVICE CHECK Battery Voltage 3.010 CV D EVICE CHECK Battery GENERAL OFFICE ASSISTANT Trigger 2.590 CV DEVICE CHECK Battery Status Middle of Service CV DEVICE CHECK Capacitor Charge Time 8.000 CV DEVICE CHECK Antione Statistic RA Percent Paced 49.00 CV DEVICE CHECK Antione Statistic RV Percent Paced 100.00 CV DEVICE CHECK RESEARCH MANUFACTURING OPERATOR Statistic RESEARCH MANUFACTURING OPERATOR Percent Paced 99.00 CV DEVICE CHECK Atrial Tachy Statistic AT/AF Lindrith Percent 0.00 CV DEVICE CHECK Lead Channel Sensing Intrinsic Amplitude 2.700 CV DEVICE CHECK Lead Channel Setting Sensing Sensitivity 0.30 CV DEVICE CHECK Lead Channel Impedance Value 350 CV DEVICE CHECK Lead Channel Pacing Threshold Amplitude 1.000 CV DEVICE CHECK Lead Channel Pacing Threshold Pulse Width 0.5 CV DEVICE CHECK Lead Channel RA Pacing Threshold Date 2024-10-10 CV DEVICE CHECK Lead Channel Setting Pacing Amplitude 2.000 CV DEVICE CHECK Lead Channel Setting Pacing Pulse Width 0.5 CV DEVICE CHECK Lead Channel Sensing Intrinsic Amplitude 4.100 CV DEVICE CHECK Lead Channel Setting Sensing Sensitivity 0.50 CV DEVICE CHECK Lead Channel Impedance Value 410 CV DEVICE CHECK Lead Channel Pacing Threshold Amplitude 0.875 CV DEVICE CHECK Lead Channel Pacing Threshold Pulse Width 0.5 CV DEVICE CHECK Lead Channel RV Pacing Threshold Date 2024-10-10 CV DEVICE CHECK Lead Channel Setting Pacing Amplitude 2.000 CV DEVICE CHECK Lead Channel Setting Pacing Pulse Width 0.5 CV DEVICE CHECK Lead Channel Impedance Value 450 CV DEVICE CHECK Lead Channel Pacing Threshold Amplitude 3.125 CV DEVICE CHECK Lead Channel Pacing Threshold Pulse Width 0.5 CV DEVICE CHECK Lead Channel Pacing Threshold Date 2024-10-10 CV DEVICE CHECK Lead Channel Setting Pacing Amplitude 4.125 CV DEVICE CHECK Lead Channel Setting Pacing Pulse Width 0.5 CV DEVICE CHECK Antione Setting Mode (NBG Code) DDDR CV DEVICE CHECK Ventricular chambers paced during RESEARCH MANUFACTURING OPERATOR pacing. BiV CV DEVICE CHECK Antione Setting Lower Rate Limit 60 CV DEVICE CHECK Antione Setting AT Mode Switch Rate 180 CV DEVICE CHECK Antione Setting Maximum Tracking Rate 110 CV DEVICE CHECK Antione Setting Maximum Sensor Rate 110 CV DEVICE CHECK Antione Setting PAV Delay 150 CV DEVICE CHECK Antione Setting JAGJIT Delay 130 CV DEVICE CHECK RESEARCH MANUFACTURING OPERATOR LV-RV Delay 40 CV D EVICE CHECK Therapy Statistic Recent Shocks Delivered 0 CV DEVICE CHECK Therapy Statistic Recent Shocks Aborted 0 CV DEVICE CHECK Therapy Statistic Recent ATP Delivered 0 CV DEVICE CHECK Shock Measured Impedance 60 CV DEVICE CHECK Zone Setting Type Category VT CV DEVICE CHECK Rate 171 CV DEVICE CHECK Zone Setting Status On CV DEVICE CHECK Zone ID 1 CV DEVICE CHECK Zone Setting Type Category VT CV DEVICE CHECK Zone Setting Status Inactive CV DEVICE CHECK Zone ID 2 CV DEVICE CHECK Zone Setting Type Category VF CV DEVICE CHECK Rate 200 CV DEVICE CHECK Therapies 36.0J,40.0J,40.0J x 4 CV DEVICE CHECK Zone Setting Status On CV DEVICE CHECK Zone ID 3 CV DEVICE CHECK Date of Service 2024-10-16 CV DEVICE CHECK Anatomical Region Laterality Modality Device Interroga tion 10/10/2024 2:00 AM EST Impressions 10/14/2024 8:06 AM EST Heart Failure Diagnostic: Stable * Heart failure diagnostics assessed through the device * Status: Stable * No overt HF present Narrative Procedure Note Kaz Salgado MD - 10/14/2024 IMPRESSION: Heart Failure Diagnostic: Stable * Heart failure diagnostics assessed through the device * Status: Stable * No overt HF present us Kaz Salgado MD CV IMPLANTABLE CARDIAC DEV ICE PROCEDURES Final Result documented in this encounter Visit Diagnoses Not on filedocumented in this encounter
--- OUTSIDE RECORDS SUMMARY | 2024-11-04 13:50 | XMS_ITS | Encounter Summary ---
Author Organization [facility] Address [address] [place] [address] Care Team Providers Care Dexigraph Operator Name Role Phone Hawa Torres MD Primary Care Provider UnavailTaya Lira MD Unavailable [phone] Chandan Breen Unavailable Rancho Matthews MD Primary Care Provider + [facility], Pcp Primary Care Provider UnavailRancho Brock MD Primary Care Provider [phone] Hawa Torres MD Primary Care Provider Unavaila Hawa Maddox MD Primary Care Provider Unavaila elpidio [facility], Pcp Primary Care Provider UnavailHawa Barron MD Primary Care Provider Unavaila ble [facility], Pcp Primary Care Provider Hawa Zavala MD Primary Care Provider Unavaila Melonie Rojas DO Primary Care Pro vider Unavailable [facility], Pcp Primary Care Provider Hawa Zavala MD Primary Care Provider Unavaila Jessi Cagle [facility] Unavailable + [phone] Encounter Details Date Type Department Care Team Description 04/26/2020 Telephone Medicine/Pediatrics - [place] [address] [place] [phone] Montana Berrios MD Social History Tobacco Use Types Packs/Day Years Used Date Smoking Tobacco: Passive Smo ke Exposure - Never Smoker Smokeless Tobacco: Never Comments: smokes in h ome Alcohol Use Standard Drinks/Week Comments Not Asked [...] on filedocumented in this encounter Care Teams Dexigraph Operator Relationship Specialty Start Date End Date Hawa Torres MD PCP - General Internal Medicine 09/09/15 12/19/20 Rancho Matthews MD [address] [place] [address] PCP - General Internal Medicine 12/20/20 03/22/21 [facility], Pcp [address] [place] [id number] PCP - General Internal Medicine 03/23/21 04/11/21 Rancho Matthews MD [address] [place] [phone] PCP - General Internal Medicine 04/12/21 04/12/21 Hawa Torres MD [address] [place] [address] PCP - General Internal Medicine 04/13/21 06/05/21 Hawa Torres MD [address] [place] [address] PCP - General Internal Medicine 06/06/21 08/07/21 [facility], Pcp [address] [place] [address] PCP - General Internal Medicine 08/08/21 10/27/21 Hawa Torres MD PCP - General Internal Medicine 10/28/21 04/11/22 [facility], Pcp [address] [place] [address] PCP - General Internal Medicine 04/12/22 05/01/22 Hawa Torres MD [address] [place] [address] PCP - General Internal Medicine 05/02/22 05/21/22 Melonie Sorensen DO [address] [place] [address] PCP - General Internal Medicine 05/22/22 09/07/22 [facility], [address] [address] PCP - General Internal Medicine 09/08/22 11/08/22 Hawa Torres MD [address] [place] [address] PCP - General Internal Medicine 11/09/22 Taya Gonzales MD Specialist Cardiology 11/01/20 Chandan Breen PA Specialist Cardiology 11/01/20 02/20/24 Jessi Erwin DNP [address] [place] [phone] Specialist Nurse Practitioner [facility] 02/21/24 documented as of this encounter
--- OUTSIDE RECORDS SUMMARY | 2024-11-04 13:50 | XMS_ITS | Encounter Summary ---
Author Organization [facility] Address [address] [place] [phone] Phone Care Team Providers Care Folding Machine Operator Name Role Phone Unavailable Primary Care Provider Unavailabl e Encounter Details Date Type Department Care Team (Late st Contact Info) Description 10/27/2024 Treatment [facility] [address] [phone] Aldo Rice MD [address] [phone] Social History Tobacco Use Types Packs/Day Years Used Date Smoking Tobacco: Never Assessed Comments Unknown Sex and Gender Information Value Date Recorded Sex Assigned at Not on file Legal Sex Female 5:11 PM EST Gender Identity Not on file Sexual Orientation Not on file documented as of this encounter Miscellaneous Notes * Dialysis Note - Aldo Rice MD - 10/27/2024 12:00 AM EST Patient: Dana Grant : 1940 Note Type: Dialysis Rounds-Comp Service Date: 10/27/2024 This patient was personally seen for a complete visit as part of routine monthly dialysis care for end stage renal disease. Attending Incoming Freight Clerk: ALDO RICE MD Dialysis Location: DIALYSIS Schedule: Shift: 1 OVERVIEW Patient is stable. HOME MEDICATIONS Medications reviewed. Current [facility] Outpatient Medications calcitriol (ROCALTROL) 0.25 MCG capsule TOME 1 CAPSULA POR VIA ORAL TODOS LOS BERNSTEIN Start Date: 08/08/2021 sevelamer carbonate (RENVELA) 800 MG tablet TOME CAMERON TABLETA JOANN VECES AL WOOD CON LAS COMIDAS Start Date: 02/13/2024 Current [facility] Allergies Allergen: Not on File BP AND FLUID ASSESSMENT Acceptable blood pressure. Fluid status acceptable. ADEQUACY ASSESSMENT Target met. Prescription compliance acceptable. Continue with greater than 3x more frequent dialysis prescription. ACCESS ASSESSMENT Vascular access examined. ANEMIA ASSESSMENT SACHA adjusted per protocol. Iron adjusted per protocol. Hgb 9.8 (09/10/24) BMM ASSESSMENT Bone and mineral metabolism parameters reviewed. NUTRITION ASSESSMENT Albumin at goal. PHYSICAL EXAM Exam not performed. Signed by: ALDO RICE MD on 10/27/2024 at 08:40:06 AM documented in this encounter Plan of Treatment Not on file documented as of this encounter Visit Diagnoses Not on filedocumented in this encounter
--- OUTSIDE RECORDS SUMMARY | 2024-11-04 13:50 | XMS_ITS | Encounter Summary ---
Author Organization [facility] Address [address] [place] [address] Care Team Providers Care Maintenance Shop Manager Name Role Phone Taya Gonzales MD Unavailable [phone] Chandan Breen Unavailable Rancho Matthews MD Primary Care Provider [phone] [facility], Pcp Primary Care Provider UnavailRancho Brock MD Primary Care Provider [phone] Hawa Torres MD Primary Care Provider Unavaila Hawa Maddox MD Primary Care Provider Unavaila ble [facility], Pcp Primary Care Provider UnavailHawa Barron MD Primary Care Provider Unavaila ble [facility], Pcp Primary Care Provider UnavailHawa Barron MD Primary Care Provider Unavaila ble Melonie Sorensen DO Primary Care Pro vider Unavailable [facility], [facility]cp Primary Care Provider UnavailHawa Barron MD Primary Care Provider Unavaila ble Jessi Erwin [facility] Unavailable [phone] Encounter Details Date Type Department Care Team Description 03/18/2021 Refill Adult Medicine [address] [phone] Rancho Matthews MD [address] [place] [address] [phone] Social History Tobacco Use Types Packs/Day Years [...] encounter Miscellaneous Notes * Telephone Encounter - Angelica Sohan - 03/18/2021 9:03 AM EDT Patient would like script to be: E-PRESCRIBED/FAXED TO PHARMACY WHEN WAS THE PATIENT'S LAST APPOINTMENT IN ADULT MEDICINE? 03/11 WHEN WAS THE LAST TIME THE PATIENT SAW THEIR PCP? Same as above Does patient have an upcoming appointment? No-unable to reach left [facility] to call for appointment due to refill request. Appt due (THE MEDICATION REQUESTED IS ON THE MED LIST ABOVE) All of the medications requested were on the CURRENT MEDS list Did you check the Pharmacy information above?: yes Patient wants: 30 -day supply Is this a mail order prescription request ? NO If the refill is from a FAXED refill request what is the RX # listed on the fax? N/A Patients current insurance carrier is: Payor: [facility] FFS / Plan: [facility] MEDICARE PREMIUM $10 [place] / Product Type: MEDICARE [id number] documented in this encounter Plan of Treatment Not on file documented as of this encounter Visit Diagnoses Not on filedocumented in this encounter Care Teams Maintenance Shop Manager Relationship Specialty Start Date End Date Rancho Matthews MD [address] [place] [address] 74251 PCP - General Internal Medicine 12/20/20 03/22/21 [facility], Pcp [address] [place] [address] 82325 PCP - General Internal Medicine 03/23/21 04/11/21 Rancho Matthews MD [address] [place] [address] 91134 PCP - General Internal Medicine 04/12/21 04/12/21 Hawa Torres MD [address] [place] [address] 26096 PCP - General Internal Medicine 04/13/21 06/05/21 Hawa Torres MD [address] [place] [address] 58139 PCP - General Internal Medicine 06/06/21 08/07/21 [facility], Pcp [address] [place] [address] 35761 PCP - General Internal Medicine 08/08/21 10/27/21 Hawa Torres MD [address] [place] [address] 86647 PCP - General Internal Medicine 10/28/21 04/11/22 [facility], Pcp [address] [place] [address] 18505 PCP - General Internal Medicine 04/12/22 05/01/22 Hawa Torres MD [address] [place] [address] 10220 PCP - General Internal Medicine 05/02/22 05/21/22 Melonie Sorensen DO [address] [place] [address] 97765 PCP - General Internal Medicine 05/22/22 09/07/22 [facility], Pcp [address] [place] [address] 07685 PCP - General Internal Medicine 09/08/22 11/08/22 Hawa Torres MD [address] [place] [address] 63284 PCP - General Internal Medicine 11/09/22 Taya Gonzales MD Specialist Cardiology 11/01/20 Chandan Breen PA Specialist Cardiology 11/01/20 02/20/24 Jessi Erwin DNP [address] [place] [address] [phone] Specialist Nurse Practitioner [facility] 02/21/24 documented as of this encounter
--- OUTSIDE RECORDS SUMMARY | 2024-11-04 13:50 | XMS_ITS | Encounter Summary ---
Author Organization [facility] Address [address] [place] [address] Care Team Providers Care Visitor Use Assistant Name Role Phone Taya Gonzales MD Unavailable [phone] Chandan Breen Unavailable Rancho Matthews MD Primary Care Provider [phone] Replaced By [facility], Pcp Primary Care Provider UnavailRancho Brock MD Primary Care Provider [phone] Hawa Torres MD Primary Care Provider Unavaila Hawa Maddox MD Primary Care Provider Unavaila ble Replaced By [facility], Pcp Primary Care Provider UnavailHawa Barron MD Primary Care Provider Unavaila ble Replaced By [facility], Pcp Primary Care Provider UnavailHawa Barron MD Primary Care Provider Unavaila ble Melonie Sorensen DO Primary Care Pro vider Unavailable Replaced By [facility], Pcp Primary Care Provider UnavailHawa Barron MD Primary Care Provider Unavaila ble Jessi Er[facility] Unavailable [phone] Encounter Details Date Type Department Care Team Description 03/11/2021 Telephone Pulmonology - [place] [address] [facility] [address] [place] [address] Rancho Matthews MD [address] [place] [address] [phone] Social History Tobacco Use Types Packs/Day Years [...] encounter Miscellaneous Notes * Telephone Encounter - Lola Lo M.A. - 03/11/2021 3:21 PM EDT Please log off patients chart so I can review medications. documented in this encounter Plan of Treatment Not on file documented as of this encounter Visit Diagnoses Not on filedocumented in this encounter Care Teams Visitor Use Assistant Relationship Specialty Start Date End Date Rancho Matthews MD [address] [place] [address] 88571 PCP - General Internal Medicine 12/20/20 03/22/21 [facility] Pcp [address] [place] [address] 03908 PCP - General Internal Medicine 03/23/21 04/11/21 Rancho Matthews MD [address] [place] [address] 47189 PCP - General Internal Medicine 04/12/21 04/12/21 Hawa Torres MD [address] [place] [address] 35507 PCP - General Internal Medicine 04/13/21 06/05/21 Hawa Torres MD [address] [place] [address] 37087 PCP - General Internal Medicine 06/06/21 08/07/21 Replaced By [facility], Pcp [address] [place] [address] 66528 PCP - General Internal Medicine 08/08/21 10/27/21 Hawa Torres MD [address] [place] [address] 35060 PCP - General Internal Medicine 10/28/21 04/11/22 Replaced By [facility], Pcp [address] [place] [address] 38083 PCP - General Internal Medicine 04/12/22 05/01/22 Hawa Torres MD [address] [place] [address] 64416 PCP - General Internal Medicine 05/02/22 05/21/22 Melonie Sorensen, [address] [place] [address] 07360 PCP - General Internal Medicine 05/22/22 09/07/22 Replaced By [facility], Pcp [address] [place] [address] 55834 PCP - General Internal Medicine 09/08/22 11/08/22 Hawa Torres MD [address] [place] [address] 24887 PCP - General Internal Medicine 11/09/22 Taya Gonzales MD Specialist Cardiology 11/01/20 Chandan Breen PA Specialist Cardiology 11/01/20 02/20/24 Jessi Erwin DNP [address] [place] [address] 65625 Specialist Nurse Practitioner Family 02/21/24 documented as of this encounter
--- OUTSIDE RECORDS SUMMARY | 2024-11-04 13:50 | XMS_ITS | Encounter Summary ---
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, with long-term current use of insulin ([facility]) (Primary Dx); Hypothyroidism, unspecified type Social History Tobacco Use Types Packs/Day Years Used Date Smoking Tobacco: Never Smokeless Tobacco: Never Tobacco Cessation:Counseling Given: Not Answered Alcohol Use Standard Drinks/Week Comments Never 0 (1 standard drink = 0.6 oz pur e alcohol) Comments Unknown Sex and Gender Information Value Date Recorded Sex Assigned at Not on file Legal Sex Female 12:17 AM EST Gender Identity Not on file Sexual Orientation Not on file documented as of this encounter Last Filed Vital Signs Vital Sign Reading Time Taken Comments Blood Pressure 152/69 10/30/2024 3:43 PM EST 5 m ins Pulse 64 10/30/2024 3:38 PM EST Temperature 36.2 ??C (97.2 ??F) 10/30/2024 3:38 PM ES T Respiratory Rate - - Oxygen Saturation - - Inhaled Oxygen Concentration - - Weight 65.8 kg (145 lb) 10/30/2024 3:38 PM EST Height 149.9 cm (4' 11 ) 10/30/2024 3:38 PM EST Body Mass Index 29.29 10/30/2024 3:38 PM EST documented in this encounter Progress Notes * Jac Biswas MA - 10/30/2024 3:40 PM EST BS Non fasting per pt CGM 129 * FLORY Baltazar - 10/30/2024 3:40 PM EST CHIEF COMPLAINT: diabetes IDENTIFIER: Dana Grant is a 84 y.o. old female HPI: Patient is a 84-year-old female who presents today for evaluation of DM. With history of respiratory failure and and PE, osteopenia, struct of sleep apnea, hypothyroidism, hyperlipidemia, hypertension, congestive heart failure, and coronary artery disease. History of hypoglycemia. She comes in her with daughter who helps with translation On dialysis. She goes to dialysis now, Sunday. Following closely with Dr. Graf. There is some complications involving her fistula. She is scheduled for an ultrasound soon. Current diet regimen: Humalog sliding scale, starting at glucose of 121. She is using cisco device to closely monitor glucose levels. Cisco data reviewed. Average glucose: 146 Glucose variability: 32.7% Glucose management indicator: 6.8% Time in range: Very high:3% High:21% Target range: 75% Low or very low: 1% Glucose levels are in stable range. Denies frequent episodes of hypoglycemia. Has good hypoglycemic awareness Patient tolerating oral intake well. Following noted friendly diet on most days. She is compliant with Humalog, takes it 3 times a day per sliding scale. BP today at 152/69 Hyperlipidemia is treated with atorvastatin 40 mg. Needs eye exam. She is taking levothyroxine 112 Mcg for hypothyroidism. Half a tablet on Sundays. ROS: GENERAL: No malaise HEENT: No changes in hearing or vision RESPIRATORY: No cough, wheezing or shortness of breath CARDIOVASCULAR: No chest pain, leg swelling or palpitations GI: No abdominal discomfort ENDO: see HPI NEURO: No persistent headache, syncope PAST MEDICAL HISTORY: Patient Active Problem List Diagnosis Date Noted HTN (hypertension) 11/28/2023 Hyperlipidemia 11/28/2023 Hypothyroidism 11/28/2023 GERD (gastroesophageal reflux disease) 11/28/2023 Hiatal hernia 11/28/2023 Anemia, chronic disease 11/28/2023 CKD (chronic kidney disease) stage 3, GFR 30-59 ml/min ([facility]) 11/28/2023 Lichen sclerosus et atrophicus of the vulva 11/28/2023 History of percutaneous coronary intervention 11/28/2023 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 breast in female, estrogen receptor positive ([facility]) 11/28/2023 Hypercalcemia 02/22/2022 PLMD (periodic limb movement disorder) 08/22/2021 Nocturnal hypoxemia 04/21/2021 Respiratory failure with hypercapnia ([facility]) 03/11/2021 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 ([facility]) 03/08/2021 Systolic left-sided congestive heart failure, NYHA class 2 ([facility]) 01/26/2021 Pulmonary embolism ([facility]) 11/30/2020 Malignant neoplasm of left female breast ([facility]) 11/30/2020 Class 1 obesity 04/15/2018 Chronic systolic heart failure ([facility]) 08/22/2016 Type 2 diabetes, controlled, with renal manifestation ([facility]) 06/02/2015 Obstructive sleep apnea 04/16/2015 Osteopenia 11/29/2012 Biventricular implantable cardioverter-defibrillator in situ 11/20/2012 CAD (coronary artery disease) 08/19/2012 No past surgical history on file. SOCIAL HISTORY: Social History Tobacco Use Smoking status: Never Smokeless tobacco: Never Substance Use Topics Alcohol use: Never FAMILY HISTORY: No family history on file. No family status information on file. MEDICATIONS DISCONTINUED/REORDERED: Medications Discontinued During This Encounter Medication Reason esomeprazole (NexIUM) [address] capsule Discontinued by another clinician FLUoxetine (PROzac) 10 mg capsule Discontinued by another clinician insulin lispro (HumaLOG KwikPen Insulin) 100 unit/mL injection pen Reorder ACTIVE MEDICATIONS: Outpatient Medications Marked as Taking for the 10/30/24 encounter (Office Visit) with FLORY Baltazar Medication Sig Dispense Refill acetaminophen (TYLENOL) 500 mg capsule Take 1 capsule (500 mg total) by mouth 1 (one) time each dayif needed for mild pain or moderate pain. aspirin 81 mg EC tablet Take 1 tablet (81 mg total) by mouth daily. atorvastatin (LIPITOR) 40 mg tablet Take 1 tablet (40 mg total) by mouth 1 (one) time each day. busPIRone (BUSPAR) 15 mg tablet Take 1 tablet (15 mg total) by mouth 2 (two) times a day. calcipotriene (DOVONOX) 0.005 % ointment Apply to affected are BID carvediloL (COREG) 3.125 mg tablet Take 1 tablet (3.125 mg total) by mouth 2 (two) times a day withmeals. clobetasoL (TEMOVATE) 0.05 % cream Apply twice daily for 2 weeks flash glucose sensor (FREESTYLE CISCO 2 SENSOR MISC) APPLY 1 DEVICE EVERY 14 DAYS. FREESTYLE LANCETS MISC Test BS tid glucose blood (FreeStyle Precision Stepan Strips) test strip Apply 1 each topically 3 (three) times a day if needed (to test blood sugars). glucose blood test strip Apply 1 each topically. insulin lispro (HumaLOG KwikPen Insulin) 100 unit/mL injection pen USE BEFORE EACH MEAL PER SLIDINGSCALE: <120: 0 units, 547383: 3 units, 151-199: 4 UNITS, 200-249: 5 UNITS, 250-299: 6 UNITS, 300-349: 7 UNITS, 350-400: 8 UNITS, ABOVE 400: CONTACT PRESCRIBER letrozole (FEMARA) 2.5 mg tablet Take 1 tablet (2.5 mg total) by mouth 1 (one) time each day levothyroxine (SYNTHROID, LEVOTHROID) 112 mcg tablet Take 1 tablet (112 mcg total) by mouth. Six days a week and 0.5 tablet once weekly loratadine (CLARITIN) 10 mg tablet Take 1 tablet (10 mg total) by mouth 1 (one) time each day. multivitamin tablet Take 1 tablet by mouth 1 (one) time each day. pen needle, diabetic 32 gauge x 5/32 needle USE 5 TIMES A DAY WITH INSULIN senna (SENOKOT) 8.6 mg tablet Take 1 tablet by mouth daily. sevelamer carbonate (RENVELA) 800 mg tablet Take 1 tablet (800 mg total) by mouth 3 (three) times aday with meals. syringe with needle 1 mL 22 gauge x 1 1/2 syringe by Does not apply route. Patient started dialysis on August 17, 2022 triamcinolone (KENALOG) 0.1 % cream Mix Triamcinolone 0.1% cream 80gms with Cerave cream. Apply daily from neck down after showers. Not to be used on the face. [DISCONTINUED] insulin lispro (HumaLOG KwikPen Insulin) 100 unit/mL injection pen USE BEFORE EACH MEAL PER SLIDING SCALE: <120: 0 units, 120-150: 2 units, 151-199: 3 UNITS, 200-249: 4 UNITS, 250-299: 6 UNITS, 300-349: 8 UNITS, 350-400: 10 UNITS, ABOVE 400: CONTACT PRESCRIBER ALLERGIES: Cetirizine, Iodinated contrast media, Lisinopril, Losartan, Other, and Spironolactone PHYSICAL EXAM: Blood pressure (!) 152/69, pulse 64, temperature 36.2 ??C (97.2 ??F), temperature source Temporal, height 1.499 m (59 ), weight 65.8 kg (145 lb). Body mass index is 29.29 kg/m??. Plan is deferred until next visit APPEARANCE: Alert and in no acute distress NEURO: Awake, alert LABS: No results found for: HGBA1C No results found for: GLUF , MICROALBUR , LDLCALC , CREATININE , MICROALBCREA No results found for: GLUCOSE IMAGING: IMPRESSION: 1. 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 Hypothyroidism, unspecified type PLAN: Diabetes complicated with end-stage renal disease, on dialysis: Using Humalog 3 times a day, conservatively. Cisco data is reviewed. Target range met at 75% with average glucose of 146. This is an acceptable range. Continue to eat in regular intervals avoid large amounts of carbohydrates. Occasionally, cisco showing falsely low readings, always crosscheck with fingerstick before taking insulin. Hypothyroidism: On levothyroxine. Taking it faithfully. She will continue to follow-up with nephrology closely regarding fistula. On dialysis 3 days a week. Return here in 4 months for reevaluation. Medication and lab orders: No orders of the defined types were placed in this encounter. None FLORY Lara on 10/30/2024 at 4:32 PM EST documented in this encounter Plan of Treatment Upcoming Encounters Date Type Department Care Team (Late st Contact Info) Description 02/04/2025 3:30 PM EDT Ancillary Procedure [facility] Cardiology [facility] [address] [address] 02/19/2025 3:40 PM EDT Office Visit Endocrinology - [address] [address] Lucille Clarke PA [address] [place] [address] 03/31/2025 3:15 PM EDT Office Visit [facility] Hematology Oncology [address] [place] [address] Cullen Gibson MD [address] [place] [address] 04/09/2025 3:40 PM EDT Appointment Radiology Department - [address] [address] 04/23/2025 10:50 AM EDT Office Visit 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 Do not open capsule. Discontinued by another clinician 10/30/2024 FLUoxetine (PROzac) 10 mg capsule Take 1 capsule (10 mg total) by mouth daily. Discontinued by another clinician 10/30/2024 insulin lispro (HumaLOG KwikPen Insulin) 100 unit/mL injection pen USE BEFORE EACH MEAL PER SLIDING SCALE: <120: 0 units, 120-150: 2 units, 151-199: 3 UNITS, 200-249: 4 UNITS, 250-299: 6 UNITS, 300-349: 8 UNITS, 350-400: 10 UNITS, ABOVE 400: CONTACT PRESCRIBER Reorder 08/20/2023 10/30/2024 documented as of this encounter Historical Medications * This list may reflect changes made after this encounter. insulin lispro (HumaLOG KwikPen Insulin) 100 unit/mL injection pen USE BEFORE EACH MEAL PER SLIDING SCALE: <120: 0 units, 860115: 3 units, 151-199: 4 UNITS, 200-249: 5 UNITS, 250-299: 6 UNITS, 300-349: 7 UNITS, 350-400: 8 UNITS, ABOVE 400: CONTACT PRESCRIBER 10/30/2024 added in this encounter
--- OUTSIDE RECORDS SUMMARY | 2024-11-04 13:50 | XMS_ITS | Encounter Summary ---
Author Organization [facility] Address [address] [place] [address] Care Team Providers Care Clinical Laboratory Technician Name Role Phone Hawa Torres MD Primary Care Provider Unavaila Taya Covington MD Unavailable [phone] Chandan Breen Unavailable Rancho Matthews MD Primary Care Provider [phone] [facility], Pcp Primary Care Provider UnavailRancho Brock MD Primary Care Provider [phone] Hawa Torres MD Primary Care Provider Unavaila Hawa Maddox MD Primary Care Provider Unavaila elpidio [facility], Pcp Primary Care Provider UnavailHawa Barron MD Primary Care Provider Unavaila ble [facility], Pcp Primary Care Provider Hawa Zavala MD Primary Care Provider Unavaila ble Melonie Sorensen DO Primary Care Pro vider Unavailable [facility], Pcp Primary Care Provider UnavailHawa Barron MD Primary Care Provider Unavaila Jessi Cagle [facility] Unavailable [phone] Encounter Details Date Type Department Care Team Description 04/29/2020 Telephone Dermatology - [address] [address] Leda Lucas PA-C Social History Tobacco Use Types Packs/Day Years [...] encounter Miscellaneous Notes * Telephone Encounter - Ceci Almodovar M.A. - 04/29/2020 10:31 AM EDT Regarding: RE: < No Subject> Contact: ----- Message from Michael Parry sent at 04/29/2020 9:58 AM EDT ----- Yes, she has commented that they start as small blisters (she described as water bubbles) before they turn into sores. We have an appointment for tomorrow morning. Thank you. ----- Message ----- From: PADMINI Matias, RAUL Sent: 04/28/20 18:17 To: Dana Grant Subject: Thank you for the update. There are other less common causes of pruritus and biopsies of the skin would be helpful. Does she develop any blisters? I have not seen any as of yet. I will have my staff contact you and get her on my schedule as soon as possible for these biopsies. Leda documented in this encounter Plan of Treatment Not on file documented as of this encounter Visit Diagnoses Not on filedocumented in this encounter Care Teams Clinical Laboratory Technician Relationship Specialty Start Date End Date Hawa Torres MD PCP - General Internal Medicine 09/09/15 12/19/20 Rancho Matthews MD [address] [place] [address] 60398 PCP - General Internal Medicine 12/20/20 03/22/21 [facility], Pcp [address] [place] [address] 72267 PCP - General Internal Medicine 03/23/21 04/11/21 Rancho Matthews MD [address] [place] [address] 74803 PCP - General Internal Medicine 04/12/21 04/12/21 Hawa Torres MD [address] [place] [address] 65275 PCP - General Internal Medicine 04/13/21 06/05/21 Hawa Torres MD [address] [place] [address] 37789 PCP - General Internal Medicine 06/06/21 08/07/21 [facility], Pcp [address] [place] [address] 49220 PCP - General Internal Medicine 08/08/21 10/27/21 Hawa Torres MD PCP - General Internal Medicine 10/28/21 04/11/22 [facility], Pcp [address] [place] [address] 41953 PCP - General Internal Medicine 04/12/22 05/01/22 Hawa Torres MD [address] [place] [address] 65097 PCP - General Internal Medicine 05/02/22 05/21/22 Melonie Sorensen, DO [address] [place] [address] 64692 PCP - General Internal Medicine 05/22/22 09/07/22 [facility], Pcp [address] [place] [address] 55400 PCP - General Internal Medicine 09/08/22 11/08/22 Hawa Torres MD [address] [place] [address] 35630 PCP - General Internal Medicine 11/09/22 Taya Gonzales MD Specialist Cardiology 11/01/20 Chandan Breen PA Specialist Cardiology 11/01/20 02/20/24 Jessi Erwin DNP [address] [place] [address] 67232 Specialist Nurse Practitioner Family 02/21/24 documented as of this encounter
--- OUTSIDE RECORDS SUMMARY | 2024-11-04 13:50 | XMS_ITS | Encounter Summary ---
Author Organization [facility] Address [address] [place] [address] Care Team Providers Care Potato Loader Name Role Phone Hawa Torres MD Primary Care Provider UnavailTaya Lira MD Unavailable [phone] Chandan Breen Unavailable + Rancho Matthews MD Primary Care Provider + [facility], Pcp Primary Care Provider UnavailRancho Brock MD Primary Care Provider [phone] Hawa Torres MD Primary Care Provider Unavaila Hawa Maddox MD Primary Care Provider Unavaila elpidio [facility], Pcp Primary Care Provider UnavailHawa Barron MD Primary Care Provider Unavaila ble [facility], Pcp Primary Care Provider Hawa Zavala MD Primary Care Provider Unavaila Melonie Rojas DO Primary Care Pro vider Unavailable [facility], Pcp Primary Care Provider Hawa Zavala MD Primary Care Provider Unavaila Jessi Cagle [facility] Unavailable + [phone] Encounter Details Date Type Department Care Team Description 04/27/2020 Hospital Medical Records [address] [place] [address] Cam Cano NP Social History Tobacco Use Types Packs/Day Years [...] on filedocumented in this encounter Care Teams Potato Loader Relationship Specialty Start Date End Date Hawa Torres MD PCP - General Internal Medicine 09/09/15 12/19/20 Rancho Matthews MD [address] [place] [address] PCP - General Internal Medicine 12/20/20 03/22/21 [facility], Pcp [address] [place] [address] PCP - General Internal Medicine 03/23/21 04/11/21 Rancho Matthews MD [address] [place] [address] PCP - General Internal Medicine 04/12/21 04/12/21 Hawa Torres MD [address] [place] [address] PCP - General Internal Medicine 04/13/21 06/05/21 Hawa Torres MD [address] [place] [address] PCP - General Internal Medicine 06/06/21 08/07/21 [facility], Pcp [address] [place] [address] 31071 PCP - General Internal Medicine 08/08/21 10/27/21 Hawa Torres MD PCP - General Internal Medicine 10/28/21 04/11/22 [facility], Pcp [address] [place] [address] PCP - General Internal Medicine 04/12/22 05/01/22 Hawa Torres MD [address] [place] [address] PCP - General Internal Medicine 05/02/22 05/21/22 Melonie Sorensen DO [address] [place] [address] PCP - General Internal Medicine 05/22/22 09/07/22 [facility], Pcp [address] [place] [address]197 PCP - General Internal Medicine 09/08/22 11/08/22 Hawa Torres MD [address] [place], [place] [id number] PCP - General Internal Medicine 11/09/22 Taya Gonzales MD Specialist Cardiology 11/01/20 Chandan Breen PA Specialist Cardiology 11/01/20 02/20/24 Jessi Erwin, KITTY [address] [place] [address] Specialist Nurse Practitioner Family 02/21/24 documented as of this encounter
--- OUTSIDE RECORDS SUMMARY | 2024-11-04 13:50 | XMS_ITS | Encounter Summary ---
Author Organization [facility] Address [address] [place] [address] Care Team Providers Care Hand Painter Name Role Phone Taya Gonzales MD Unavailable [phone] Chandan Breen Unavailable Melonie Sorensen DO Primary Care Pro vider Unavailable [facility], Pcp Primary Care Provider UnavailHawa Barron MD Primary Care Provider UnavailJessi Hogan DNP Unavailable [phone] Encounter Details Date Type Department Care Team Description 08/16/2022 Hospital Medical Records [address] [place] [address] Social History Tobacco Use Types Packs/Day Years [...] on file documented as of this encounter Procedures Procedure Name Priority Date/Time Associated Diagnosis Comments OUTSIDE VASCULAR STUDY Routine 08/21/2022 OUTSIDE ECHO Routine 08/21/2022 OUTSIDE EKG Routine 08/17/2022 documented in this encounter Results * OUTSIDE ECHO (08/21/2022) Provider Abstract CARDIOLOGY * OUTSIDE VASCULAR STUDY (08/21/2022) Provider Abstract CARDIOLOGY * OUTSIDE EKG (08/17/2022) Provider Abstract CARDIOLOGY documented in this encounter Visit Diagnoses Not on filedocumented in this encounter Care Teams Hand Painter Relationship Specialty Start Date End Date Melonie Sorensen DO PCP - General Internal Medicine 05/22/22 09/07/22 [facility], [facility] PCP - General Internal Medicine 09/08/22 11/08/22 Hawa Torres MD PCP - General Internal Medicine 11/09/22 Taya Gonzales MD Specialist Cardiology 11/01/20 Chandan Breen PA Specialist Cardiology 11/01/20 02/20/24 Jessi Erwin DNP Specialist Nurse Practitioner Family 02/21/24 documented as of this encounter
--- OUTSIDE RECORDS SUMMARY | 2024-11-04 13:50 | XMS_ITS | Encounter Summary ---
Author Organization [facility] Address [address] [place] [phone] Phone Care Team Providers Care Dinkey Operator Slag Name Role Phone Unavailable Primary Care Provider Unavailabl e Encounter Details Date Type Department Care Team (Late st Contact Info) Description 10/06/2024 Treatment [facility] [address] [address] Aldo Rice MD [address] [address] Social History Tobacco Use Types Packs/Day Years Used Date Smoking Tobacco: Never Assessed Comments Unknown Sex and Gender Information Value Date Recorded Sex Assigned at Not on file Legal Sex Female 5:11 PM EST Gender Identity Not on file Sexual Orientation Not on file documented as of this encounter Miscellaneous Notes * Dialysis Note - Aldo Rice MD - 10/06/2024 12:00 AM EST Patient: Dana Grant : 1940 Note Type: Dialysis Rounds-Basic Service Date: 10/06/2024 This patient was personally seen for a basic visit as part of routine monthly dialysis care for end stage renal disease. Attending Public Health Technologist: ALDO RICE MD Dialysis Location: [facility] Schedule: Shift: 1 HOME MEDICATIONS Current [...] (09/10/24) Signed by: ALDO RICE MD on 10/06/2024 at 08:49:46 AM Transcribed by: ALDO RICE MD on 10/06/2024 at 08:49:46 AM documented in this encounter Plan of Treatment Not on file documented as of this encounter Visit Diagnoses Not on filedocumented in this encounter
--- OUTSIDE RECORDS SUMMARY | 2024-11-04 13:50 | XMS_ITS | Encounter Summary ---
Author Organization [facility] Address [address] [place] [phone] Phone Care Team Providers Care Grants Specialist Name Role Phone Unavailable Primary Care Provider Unavailabl e Encounter Details Date Type Department Care Team (Late st Contact Info) Description 11/03/2024 Treatment [facility] [address] [address] Aldo Rice MD [address] [address] Social History Tobacco Use Types Packs/Day Years Used Date Smoking Tobacco: Never Assessed Comments Unknown Sex and Gender Information Value Date Recorded Sex Assigned at Not on file Legal Sex Female 5:11 PM EST Gender Identity Not on file Sexual Orientation Not on file documented as of this encounter Miscellaneous Notes * Dialysis Note - Aldo Rice MD - 11/03/2024 12:00 AM EST Patient: Dana Grnat : 1940 Note Type: Dialysis Rounds-Basic Service Date: 11/03/2024 This patient was personally seen for a basic visit as part of routine monthly dialysis care for end stage renal disease. Attending Medical Physics Researcher: ALDO RICE MD Dialysis Location: DIALYSIS Schedule: Shift: 1 HOME MEDICATIONS Current [...] (09/10/24) Signed by: ALDO RICE MD on 11/03/2024 at 09:15:23 AM documented in this encounter Plan of Treatment Not on file documented as of this encounter Visit Diagnoses Not on filedocumented in this encounter
--- OUTSIDE RECORDS SUMMARY | 2024-11-04 13:50 | XMS_ITS | Encounter Summary ---
Author Organization [facility] Address [address] [place] [address] Care Team Providers Care Restoration Ecologist Name Role Phone Taya Gonzales MD Unavailable [phone] Chandan Breen Unavailable Hawa Torres MD Primary Care Provider Unavaila Hawa Maddox MD Primary Care Provider Unavaila ble [facility], Pcp Primary Care Provider UnavailHawa Barron MD Primary Care Provider Unavaila ble [facility], Pcp Primary Care Provider UnavailHawa Barron MD Primary Care Provider Unavaila ble Melonie Sorensen DO Primary Care Pro vider Unavailable [facility], Pcp Primary Care Provider Hawa Zavala MD Primary Care Provider Unavaila ble Jessi Erwin [facility] Unavailable [phone] Reason for Visit * Reason Onset Date Comments Provider Call Back 05/10/2021 Encounter Details Date Type Department Care Team Description 05/10/2021 Telephone Pulmonology - Geff [address] [facility] [address] [place] [address] Coy Salomon MD [address] [place] [address] Provider Call Back Social History Tobacco Use Types Packs/Day Years [...] have Coronavirus / COVID-19? No / Unsure 05/12/2021 1:05 PM EDT documented as of this encounter Miscellaneous Notes * Telephone Encounter - Akanksha Osborn - 05/12/2021 3:13 PM EDT Please forward sleep study order and schedule- thanks! * Telephone Encounter - Teri Gudino - 05/10/2021 4:05 PM EDT Caller requesting call back from provider: Is the caller the patient? NO If caller is not the patient, what is the callers name? Madelin Callers relationship to patient? daughter If person calling is not the patient themselves, is there a verbal release in FYI or permanent comments for this person: YES Reason for call back: Patient called to schedule her sleep study and the facility does not have theorder. Please fax to [phone]. Please call antoine Yusuf when done. Caller offered to speak with the nurse for assistance: YES Response: Patient offered to speak with nurse for assistance and patient agreed. Message forwarded to nurse. documented in this encounter Plan of Treatment Not on file documented as of this encounter Visit Diagnoses Not on filedocumented in this encounter Care Teams Restoration Ecologist Relationship Specialty Start Date End Date Hawa Torres MD PCP - General Internal Medicine 04/13/21 06/05/21 Hawa Torres MD PCP - General Internal Medicine 06/06/21 08/07/21 [facility], Pcp PCP - General Internal Medicine 08/08/21 10/27/21 Hawa Torres MD PCP - General Internal Medicine 10/28/21 04/11/22 [facility], Pcp PCP - General Internal Medicine 04/12/22 05/01/22 Hawa Torres MD PCP - General Internal Medicine 05/02/22 05/21/22 Melonie Sorensen DO PCP - General Internal Medicine 05/22/22 09/07/22 [facility], Pcp PCP - General Internal Medicine 09/08/22 11/08/22 Hawa Torres MD PCP - General Internal Medicine 11/09/22 Taya Gonzales MD Specialist Cardiology 11/01/20 Chandan Breen PA Specialist Cardiology 11/01/20 02/20/24 Jessi Erwin DNP Specialist Nurse Practitioner Family 02/21/24 documented as of this encounter
--- OUTSIDE RECORDS SUMMARY | 2024-11-04 13:50 | XMS_ITS | Encounter Summary ---
Author Organization [facility] Address [address] [place] [address] Care Team Providers Care Purchasing And Fiscal Clerk Name Role Phone Unavailable Primary Care Provider Unavailabl e Reason for Visit * Reason Onset Date Comments faxed office note 10/22/2024 Encounter Details Date Type Department Care Team (Late Contact Info) Description 10/22/2024 Telephone [facility] - [facility] [address] [facility] [address] [place] [phone] Jessi Erwin, ANTONINO [address] [place] [address] faxed office note Social History Tobacco Use Types Packs/Day Years [...] on file documented as of this encounter Progress Notes * Shilpi Mistry MA - 10/22/2024 1:44 PM EST I have faxed note to Dr. Guy Dickens at [facility] gastro [phone] documented in this encounter Plan of Treatment Upcoming Encounters Date Type Department Care Team (Late Contact Info) Description 02/04/2025 3:30 PM EDT Ancillary Procedure [facility] - [facility] [address] [facility] [address] [place] [phone] 02/19/2025 3:40 PM EDT Office Visit Endocrinology - [address] [address] Lucille Clarke PA [address] [place] [address] 03/31/2025 3:15 PM EDT Office Visit [facility] Hematology Oncology [address] [place] [phone] Cullen Gibson MD [address] [place] [phone] 04/09/2025 3:40 PM EDT Appointment Radiology Department - [address] [address] 04/23/2025 10:50 AM EDT Office Visit [facility] - [facility] [address] [facility] [address] [place] [phone] Taya Gonzales MD [address] [place] [address] documented as of this encounter Visit Diagnoses Not on filedocumented in this encounter
--- OUTSIDE RECORDS SUMMARY | 2024-11-04 13:50 | XMS_ITS | Encounter Summary ---
Author Organization [facility] Address [address] [facility] [address] [place] [address] Care Team Providers Care Revenue Cycle Manager Name Role Phone Unavailable Primary Care Provider Unavailabl e Encounter Details Date Type Department Care Team (Latest Contact Info) Description 05/28/2024 Treatment Aldo Rice MD [address] [facility] [address] [place] [address] Social History Tobacco Use Types Packs/Day Years Used Date Smoking Tobacco: Never Assessed Comments Unknown Sex and Gender Information Value Date Recorded Sex Assigned at Not on file Legal Sex Female 5:11 PM EST Gender Identity Not on file Sexual Orientation Not on file documented as of this encounter Miscellaneous Notes * Dialysis Note - Aldo Rice MD - 05/28/2024 12:00 AM EDT Patient: Dana Grant : 1940 Note Type: Dialysis Rounds-Comp Service Date: 05/28/2024 This patient was personally seen for a complete visit as part of routine monthly dialysis care for end stage renal disease. Attending Recruiting Consultant: ALDO RICE MD Dialysis Location: [facility] Schedule: Shift: 1 OVERVIEW Patient is stable. HOME MEDICATIONS Medications reviewed. Current [facility] Epic Outpatient Medications calcitriol (ROCALTROL) 0.25 MCG capsule TOME 1 CAPSULA POR VIA ORAL TODOS [place]ERN[place] Start Date: 08/08/2021 sevelamer carbonate (RENVELA) 800 MG tablet TOME CAMERON TABLETA JOANN VECES AL WOOD CON LAS COMIDAS Start Date: 02/13/2024 Current [facility] Epic Allergies Allergen: Not on File BP AND FLUID ASSESSMENT Acceptable blood pressure. Fluid status acceptable. ADEQUACY ASSESSMENT Target met. Prescription compliance acceptable. Continue with greater than 3x more frequent dialysis prescription. ACCESS ASSESSMENT Vascular access examined. ANEMIA ASSESSMENT SACHA adjusted per protocol. Iron adjusted per protocol. BMM ASSESSMENT Bone and mineral metabolism parameters reviewed. NUTRITION ASSESSMENT Albumin at goal. PHYSICAL EXAM Exam performed. Vital Signs Reviewed. Lungs - Clear. CV - Blood pressure noted. CV - RRR. No edema. EXT - No ulcers. Signed by: Aldo Rice on 05/28/2024 at 08:53:50 AM Transcribed by: Aldo Rice on 05/28/2024 at 08:53:50 AM documented in this encounter Plan of Treatment Not on file documented as of this encounter Visit Diagnoses Not on filedocumented in this encounter
--- OUTSIDE RECORDS SUMMARY | 2024-11-04 13:50 | XMS_ITS | Encounter Summary ---
Author Organization [facility] Address [address] [place] [address] Care Team Providers Care Silverware Buffing Machine Operator Name Role Phone Taya Gonzales MD Unavailable [phone] Chandan Breen Unavailable Hawa Torres MD Primary Care Provider Unavaila Hawa Maddox MD Primary Care Provider Unavaila elpidio [facility], Pcp Primary Care Provider UnavailHawa Barron MD Primary Care Provider Unavaila [facility], Pcp Primary Care Provider Hawa Zavala MD Primary Care Provider Unavaila ble Melonie Sorensen DO Primary Care Pro vider Unavailable [facility], Pcp Primary Care Provider Hawa Zavala MD Primary Care Provider Unavaila ble Jessi Erwin [facility] Unavailable [phone] Encounter Details Date Type Department Care Team Description 05/03/2021 Refill Medicine/Pediatrics - [address] [address] Hawa Torres MD Social History Tobacco Use [...] have Coronavirus / COVID-19? No / Unsure 04/25/2021 10:18 AM EDT documented as of this encounter Miscellaneous Notes * Telephone Encounter - Angelica Sun M.A. - 05/04/2021 9:24 AM EDTFrom: Dana Grant To: Office of Hipolito Torres Sent: 05/03/2021 8:10 PM EDT Subject: Medication Renewal Request Refills have been requested for the following medications: Other - TRIAMCINOLONE 0.1% CREAM Preferred pharmacy: [id number] documented in this encounter Plan of Treatment Not on file documented as of this encounter Visit Diagnoses Not on filedocumented in this encounter Care Teams Silverware Buffing Machine Operator Relationship Specialty Start Date End Date Hawa Torres MD PCP - General Internal Medicine 04/13/21 06/05/21 Hawa Torres MD PCP - General Internal Medicine 06/06/21 08/07/21 [facility], Pcp PCP - General Internal Medicine 08/08/21 10/27/21 Hawa Torres MD PCP - General Internal Medicine 10/28/21 04/11/22 [facility], Pcp PCP - General Internal Medicine 04/12/22 05/01/22 Hawa Torres MD PCP - General Internal Medicine 05/02/22 05/21/22 Melonie Sorensen DO PCP - General Internal Medicine 05/22/22 09/07/22 [facility], Pcp PCP - General Internal Medicine 09/08/22 11/08/22 Hawa Torres MD PCP - General Internal Medicine 11/09/22 Taya Gonzales MD Specialist Cardiology 11/01/20 Chandan Breen PA Specialist Cardiology 11/01/20 02/20/24 Jessi Erwin DNP Specialist Nurse Practitioner Family 02/21/24 documented as of this encounter
--- OUTSIDE RECORDS SUMMARY | 2024-11-04 13:50 | XMS_ITS | Encounter Summary ---
Author Organization [facility] Address [address] [place] [address] Care Team Providers Care Labor Employment Associate Name Role Phone Taya Gonzales MD Unavailable [phone] Chandan Breen Unavailable Hawa Torres MD Primary Care Provider Unavaila Hawa Maddox MD Primary Care Provider Unavaila ble [facility], Pcp Primary Care Provider UnavailHawa Barron MD Primary Care Provider Unavaila ble [facility], Pcp Primary Care Provider UnavailHawa Barron MD Primary Care Provider Unavaila ble Melonie Sorensen DO Primary Care Pro vider Unavailable [facility], Pcp Primary Care Provider Hawa Zavala MD Primary Care Provider Unavaila ble Jessi Erwin [facility] Unavailable [phone] Reason for Visit * Reason Onset Date Comments APPOINTMENT 06/01/2021 Encounter Details Date Type Department Care Team Description 06/01/2021 Telephone Cardio PVC POC [address] [facility] [address] [place] [address] Nikhil Sorenson MD [address] [place] [address] [id number] APPOINTMENT Social History Tobacco Use Types Packs/Day Years [...] encounter Miscellaneous Notes * Telephone Encounter - Mara Mcgarry C.M.A. - 06/01/2021 11:10 AM EDT Patient is long overdue for in office device check. Can you please schedule patient for a device check. (Filipino speaking) documented in this encounter Plan of Treatment Not on file documented as of this encounter Visit Diagnoses Not on filedocumented in this encounter Care Teams Labor Employment Associate Relationship Specialty Start Date End Date Hawa Torres MD PCP - General Internal Medicine 04/13/21 06/05/21 Hawa Torres MD PCP - General Internal Medicine 06/06/21 08/07/21 [facility], Pcp PCP - General Internal Medicine 08/08/21 [...]
--- OUTSIDE RECORDS SUMMARY | 2024-11-04 13:50 | XMS_ITS | Encounter Summary ---
Author Organization [facility] Address [address] [place] [address] Care Team Providers Care Reimbursement Consultant Name Role Phone Unavailable Primary Care Provider Unavailabl e Reason for Visit * Reason Comments Pre-op Exam colonoscopy Encounter Details Date Type Department Care Team (Late st Contact Info) Description 10/14/2024 12:40 PM EST Consult [facility] - [address] [place] [address] Jessi Erwin NP [address] [place] [address] Chronic systolic dysfunction of left ventricle (Primary Dx); Primary hypertension; Coronary artery disease involving kootenai coronary artery of kootenai heart without angina pectoris; Systolic left-sided congestive heart failure, NYHA class 2 (CMS/HCC); Pure hypercholesterolemia; Preop cardiovascular exam Social History Tobacco Use Types Packs/Day Years [...] Sign Reading Time Taken Comments Blood Pressure 122/66 10/14/2024 12:42 PM EST Pulse 72 10/14/2024 12:42 PM EST Temperature - - Respiratory Rate - - Oxygen Saturation 95% 10/14/2024 12:42 PM EST Inhaled Oxygen Concentration - - Weight 66.2 kg (146 lb) 10/14/2024 12:42 PM EST Height 149.9 cm (4' 11 ) 10/14/2024 12:42 PM EST Body Mass Index 29.49 10/14/2024 12:42 PM EST documented in this encounter Progress Notes * Jessi Erwin NP - 10/14/2024 12:40 PM ESTAssociated Problem(s): HTN (hypertension) The patient's blood pressure is well-controlled in office today on her current dose Coreg. If hypotension is limiting dialysis, may need to consider eliminating her beta-karen therapy altogether. Will defer to renal for that final decision * Jessi Erwin NP - 10/14/2024 12:40 PM ESTAssociated Problem(s): CAD (coronary artery disease) She has no anginal symptoms to her current MET workload. For now, continue her ASA, BB and statin. * Jessi Erwin NP - 10/14/2024 12:40 PM ESTAssociated Problem(s): Systolic left-sided congestive heart failure, NYHA class 2 ([facility]) The patient's volume status is managed by dialysis. Her GDMT is limited by her hypotension. In fact, she has low blood pressure still reported at dialysis per her daughter. For now, she remains on Coreg, but this may need to be interrupted if she has dialysis limiting hypotension. She appears euvolemic on exam today. Her left arm is soft though somewhat larger in size than her right. She has adequate radial and ulnar pulses. Her hand and arm temperature is equal bilaterally. * Jessi Erwin NP - 10/14/2024 12:40 PM ESTAssociated Problem(s): Hyperlipidemia Well-controlled lipid profile on current dose statin. 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 Christian Grant is a 84 y.o. old female here for cardiac follow up of: 1) CAD with anomalous LCX 2) HFrEF s/p AICD 3) HTN 4) HLD Past medical history significant for pericardial effusion, STACEY, breast cancer and CKD on HD MWF. She is planned for EGD/colo as she has been having difficulty swallowing. Per her daughter, barium swallow was unrevealing. She still has swelling in her left arm (dialysis fistula side). It occurred right around [place].She has plans for what sounds to be a fistulogram next week. Her daughter helps with incidental translation she continues with low blood pressure at dialysis. Her blood pressure is good in the office today. The patient denies chest pain with rest or exertion, shortness of breath with rest or exertion, palpitations, syncope/presyncope, edema, PND or orthopnea. ACTIVE MEDICATIONS: Outpatient Medications Marked as Taking for the 10/14/24 encounter (Consult) with Jessi Erwin NP Medication Sig Dispense Refill acetaminophen (TYLENOL) 500 [...] cream Apply twice daily for 2 weeks esomeprazole (NexIUM) [address] capsule Take 1 capsule (40 mg total) by mouth 1 (one) time each day before breakfast. Do not open capsule. flash glucose sensor (FREESTYLE CHARLIE 2 SENSOR MISC) APPLY 1 DEVICE EVERY 14 DAYS. FLUoxetine (PROzac) 10 mg capsule Take 1 capsule (10 mg total) by mouth daily. FREESTYLE LANCETS MISC Test BS tid glucose blood (FreeStyle Precision Stepan Strips) test strip Apply 1 each topically 3 (three) times a day if needed (to test blood sugars). glucose blood test strip Apply 1 each topically. insulin lispro (HumaLOG KwikPen Insulin) 100 unit/mL injection pen USE BEFORE EACH MEAL PER SLIDINGSCALE: <120: 0 units, 120-150: 2 units, 151-199: 3 UNITS, 200-249: 4 UNITS, 250-299: 6 UNITS, 300-349: 8 UNITS, 350-400: 10 UNITS, ABOVE 400: CONTACT PRESCRIBER letrozole (FEMARA) [...] Not to be used on the face. PAST MEDICAL HISTORY: Patient Active Problem List Diagnosis Date Noted Date Diagnosed HTN (hypertension) 11/28/2023 Treatment limited by hypotension at dialysis Hyperlipidemia 11/28/2023 Hypothyroidism 11/28/2023 GERD (gastroesophageal reflux disease) 11/28/2023 Hiatal hernia 11/28/2023 Anemia, chronic disease 11/28/2023 CKD (chronic kidney disease) stage 3, GFR 30-59 ml/min ([facility]) 11/28/2023 Dr. Barragan Lichen sclerosus et atrophicus of the vulva 11/28/2023 History of percutaneous coronary intervention 11/28/2023 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 breast in female, estrogen receptor positive ([facility]) 11/28/2023 Hypercalcemia 02/22/2022 PLMD (periodic limb movement disorder) 08/22/2021 Nocturnal hypoxemia 04/21/2021 Respiratory failure with hypercapnia ([facility]) 03/11/2021 Complex history, recent hospitalization, component of systolic/diastolic dysfunction. Patient will be following with pulmonology 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 ([facility]) 03/08/2021 Ischemic congestive cardiomyopathy Systolic left-sided congestive heart failure, NYHA class 2 ([facility]) 01/26/2021 - LVEF as low as 10-15% - GDMT limited by hypotension - Most recent echocardiogram 07/2022 at [facility] showed LVEF 10- 15%, global hypokinesis with wall motion abnormalities without hemodynamically significant valve disease - [employer]PER[employer]-D generator change in 12/2023. There had been some noise on her atrial lead that was found to have a small insulation breach. However, the lead was tested repeatedly and no noise was seen on manipulating it. Therefore, a lead repair kit was used and the isulation was fixed. Pulmonary embolism ([facility]) 11/30/2020 Malignant neoplasm of left female breast ([facility]) 11/30/2020 Class 1 obesity 04/15/2018 Chronic systolic heart failure ([facility]) 08/22/2016 Type 2 diabetes, controlled, with renal manifestation ([facility]) 06/02/2015 Obstructive sleep apnea 04/16/2015 [facility] Polysomnogram treatment study. Date 10/06/2017 . SE 68 % SM 72 %; spent 13 % of the study in REM. At the optimal pressure of CPAP 7-9; RDI <4 (AHI <4), Central apneas 0-2; Obstructive apneas 0; Mixed apneas 0; hypopneas 3-4; RERAs 2; and, average oxygen saturation was 93%. For the entire study, PLMs ~34. [facility] CPAP treatment study, 08/07/2021. Weight 135 pounds; BMI 27. CPAP 16 recommended with additional supplementation of oxygen at 2 L/min flow. Also noted PLM's 49 during the study. Osteopenia 11/29/2012 Biventricular implantable cardioverter-defibrillator in situ 11/20/2012 CAD (coronary artery disease) 08/19/2012 - She had a cardiac catheterization in September 2014 for progressive heart failure symptoms and positive stress test. This showed a 99% mid LAD stenosis with collaterals to the distal LAD that was notintervened upon secondary to chronicity and complexity of the lesion. Resolved Problems Diagnosis Date Diagnosed Old PA (myocardial infarction) March 2011 PA at [facility] Chronic systolic dysfunction of left ventricle S/P pacemaker Pacemaker Cardiac pacemaker ALLERGIES: Allergies Allergen Reactions Cetirizine Weakness Iodinated Contrast Media Lisinopril hyperkalemia Losartan hyperkalemia Other Spironolactone Acute kidney injury. SOCIAL HISTORY: Social History Tobacco Use Smoking status: Never Smokeless tobacco: Never Substance Use Topics Alcohol use: Never PHYSICAL EXAM: Vitals: 10/14/24 1242 BP: 122/66 Pulse: 72 SpO2: 95% Weight: 66.2 kg (146 lb) Height: 1.499 m (59 ) GENERAL: WDWN 84 y.o. female resting comfortably on the exam table in no acute distress HEENT: NCAT, negative JVD, carotid pulses +2 bilaterally, with faint bilateral bruit RESPIRATORY: Lungs clear, No wheezes/rales/rhonchi CARDIAC: S1S2, RRR no Murmur/heaves/rubs/gallops, no S3S4 EXTREMITIES: no edema, left UE larger than right, but soft and compressible without obvious fluid collection PULSES: Radial, ulnar, and Pedal +2 bilaterally NEURO: A&Ox3 MS: Moving all extremities without focal findings. EKG: Encounter Date: 10/14/24 ECG 12 lead Result Value Ventricular Rate ECG 72 Atrial Rate 72 P-R Interval 152 QRS Duration 148 Q-T Interval 466 QTc 510 P Wave [place] 69 R [place] -65 T [place] 97 ECG Interpretation Atrial sensed, BiV paced rhythm *Note: Due to a large number of results and/or encounters for the requested time period, some results have not been displayed. A complete set of results can be found in Results Review. TESTING: Last Lipids: Lab Results Component Value Date CHOL 138 06/25/2020 LDL 54 06/25/2020 HDL 55 06/25/2020 TRIG 145 06/25/2020 Last BMP 01/07/2024 NA 139 K 5.5 CL 95 CO2 26 BUN 50 Creat 3.51 Last CBC 01/07/2024 WBC 5.3 Hgb 11.2 Hct 33.1 Plt 138 As per AHA guidelines and previously established plan of care by Dr. Gonzales, we discussed the following today: ASSESSMENT/PLAN: Assessment & Plan Primary hypertension The patient's blood pressure is well-controlled in office today on her current dose Coreg. If hypotension is limiting dialysis, may need to consider eliminating her beta-karen therapy altogether. Will defer to renal for that final decision Coronary artery disease involving kootenai coronary artery of kootenai heart without angina pectoris She has no anginal symptoms to her current MET workload. For now, continue her ASA, BB and statin. Systolic left-sided congestive heart failure, NYHA class 2 ([facility]) The patient's volume status is managed by dialysis. Her GDMT is limited by her hypotension. In fact, she has low blood pressure still reported at dialysis per her daughter. For now, she remains on Coreg, but this may need to be interrupted if she has dialysis limiting hypotension. She appears euvolemic on exam today. Her left arm is soft though somewhat larger in size than her right. She has adequate radial and ulnar pulses. Her hand and arm temperature is equal bilaterally. Pure hypercholesterolemia Well-controlled lipid profile on current dose statin. Continue Preop cardiovascular exam The patient is a higher though still reasonable risk for low risk EGD/colonoscopy to evaluate her dysphagia. Her volume status is closely monitored and maintained by dialysis. Her SCD risk is mitigated by her AICD. She does have a propensity for hypotension, and would be cautious with IVF administration, though she will likely have dialysis in the day or so following her procedure. Should her EGD/[place] be unrevealing, can consider speech therapy evaluation as they may have some mechanical suggestions to reduce her dysphagia. Orders Placed This Encounter Procedures ECG 12 lead Thank you for allowing us to participate in the care of this patient. The patient will follow up in6 months, sooner PRN. This note is completed with voice recognition software. Please pardon any grammatical or syntax errors. I personally spent a total of 30 minutes, including both mxsp-ag-etih and vpy-zkmw-bn-face time on the date of the encounter, addressing the above diagnoses. Activities performed in this time includechart review, obtaining / reviewing history, performing a medically necessary evaluation, documentation and counseling including medical decision making of 1. Chronic systolic dysfunction of left ventricle 2. Primary hypertension 3. Coronary artery disease involving kootenai coronary artery of kootenai heart without angina pectoris 4. Systolic left-sided congestive heart failure, NYHA class 2 (CMS/HCC) 5. Pure hypercholesterolemia 6. Preop cardiovascular exam . Cosigned by Kaz Beatty MD at 10/19/2024 12:43 AM EST documented in this encounter Plan of Treatment Upcoming Encounters Date Type Department Care Team (Late st Contact Info) Description 02/04/2025 3:30 PM EDT Ancillary Procedure [facility] - [address] [facility] [address] [place] [address] 02/19/2025 3:40 PM EDT Office Visit Endocrinology - [address] [address] Lucille Clarke PA [address] [place] [address] 03/31/2025 3:15 PM EDT Office Visit [facility] Hematology Oncology [address] [place] [phone] Cullen Gibson MD [address] [place] [phone] 04/09/2025 3:40 PM EDT Appointment Radiology Department - [address] [address] 04/23/2025 10:50 AM EDT Office Visit [facility] - [facility] [address] [facility] [address] [place] [address] Taya Gonzales MD [address] [place] [address] documented as of this encounter Procedures Procedure Name Priority Date/Time Associated Diagnosis Comments ECG 12-LEAD Routine 10/18/2024 9:59 AM EST Chronic systolic dysfunction of left ventricle documented in this encounter Results * ECG 12 lead (10/18/2024 9:59 AM EST) Ventricular Rate ECG 72 BPM GEMUSE Atrial Rate 72 BPM GEMUSE P-R Interval 152 ms GEMUSE QRS Duration 148 ms GEMUSE Q-T Interval 466 ms GEMUSE QTc 510 ms GEMUSE P Wave [place] 69 degrees GEMUSE R [place] -65 degrees GEMUSE T [place] 97 degrees GEMUSE ECG Interpretation Atrial sensed, BiV paced rhythm Confirmed by CHANDAN BEATTY ([id number]) on 10/18/2024 11:50:21 PM GEMUSE 10/14/2024 12:4 9 PM EST 10/18/2024 11:50 PM EST us Jessi Erwin NP ECG ORDERABLES Edited Result - Final GEMUSE documented in this encounter Visit Diagnoses Diagnosis Chronic systolic dysfunction of left ventricle- Primary Primary hypertension Unspecified essential hypertension Coronary artery disease involving kootenai coronary artery of kootenai heart without angina pectoris Systolic left-sided congestive heart failure, NYHA class 2 (CMS/HCC) Pure hypercholesterolemia Preop cardiovascular exam Pre-operative cardiovascular examination Encounter for adjustment or management of cardiac device documented in this encounter
--- OUTSIDE RECORDS SUMMARY | 2024-11-04 13:51 | XMS_ITS | Encounter Summary ---
Author Organization [facility] Address [address] [place] [address] Care Team Providers Care Gas Roller Operator Name Role Phone Hawa Torres MD Primary Care Provider Unavaila Taya Covington MD Unavailable [phone] Chandan Breen Unavailable Rancho Matthews MD Primary Care Provider [phone] [facility], Pcp Primary Care Provider UnavailRancho Brock MD Primary Care Provider [phone] Hawa Torres MD Primary Care Provider Unavaila Hawa Maddox MD Primary Care Provider Unavaila elpidio [facility], Pcp Primary Care Provider UnavailHawa Barron MD Primary Care Provider Unavaila ble [facility], Pcp Primary Care Provider Hawa Zavala MD Primary Care Provider Unavaila ble Melonie Sorensen DO Primary Care Pro vider Unavailable [facility], Pcp Primary Care Provider Hawa Zavala MD Primary Care Provider Unavaila Jessi Cagle [facility] Unavailable [phone] Encounter Details Date Type Department Care Team Description 10/26/2020 Orders Only General Surgery [address] [place] [address] Julio C Lawler MD [address] [address] Microcalcifications of the breast Social History Tobacco Use Types Packs/Day Years [...] Procedure Name Priority Date/Time Associated Diagnosis Comments UT BX BREAST W/DEVICE 1ST LESION STEREOTACTIC GUID Routine 10/21/2020 Microcalcifications of the breast documented in this encounter Results * BX BREAST W DEVICE 1ST LESION STEREOTACTIC GUIDE (10/21/2020) Julio C Lawler MD MAMMOGRAPHY documented in this encounter Visit Diagnoses Diagnosis Microcalcifications of the breast Mammographic microcalcification documented in this encounter Care Teams Gas Roller Operator Relationship Specialty Start Date End Date Hawa Torres MD PCP - General Internal Medicine 09/09/15 12/19/20 Rancho Matthews MD [address] [place] [address] PCP - General Internal Medicine 12/20/20 03/22/[address] [address] PCP - General Internal Medicine 03/23/21 04/11/21 Rancho Matthews MD [address] [place] [address] PCP - General Internal Medicine 04/12/21 04/12/21 Hawa Torres MD [address] [place] [address] PCP - General Internal Medicine 04/13/21 06/05/21 Hawa Torres MD [address] [place] [address] PCP - General Internal Medicine 06/06/21 08/07/21 [facility], Pcp [address] [place] [address] PCP - General Internal Medicine 08/08/21 10/27/21 Hawa Torres MD PCP - General Internal Medicine 10/28/21 04/11/22 [facility], Pcp [address] [place] [address] PCP - General Internal Medicine 04/12/22 05/01/22 Hawa Torres MD [address] [place] [address] PCP - General Internal Medicine 05/02/22 05/21/22 Melonie Sorensen DO [address] [place] [address] PCP - General Internal Medicine 05/22/22 09/07/22 [facility], Pcp [address] [place] [address] PCP - General Internal Medicine 09/08/22 11/08/22 Hawa Torres MD [address] [place] [address] PCP - General Internal Medicine 11/09/22 Taya Gonzales MD Specialist Cardiology 11/01/20 Chandan Breen PA Specialist Cardiology 11/01/20 02/20/24 Jessi Erwin DNP [address] [place] [address] Specialist Nurse Practitioner Family 02/21/24 documented as of this encounter
--- OUTSIDE RECORDS SUMMARY | 2024-11-04 13:51 | XMS_ITS | Encounter Summary ---
Author Organization [facility] Address [address] [place] [address] Care Team Providers Care Honing Job Setter Name Role Phone Taya Gonzales MD Unavailable [phone] Chandan Breen Unavailable Hawa Torres MD Primary Care Provider Unavaila Jessi Cagle DNP Unavailable [phone] Encounter Details Date Type Department Care Team Description 08/07/2023 CGM Report Medical Records [address] [place] [address] Abstract, Provider Social History Tobacco Use Types [...] suspected to have Coronavirus/COVID-19? No / Unsure 08/03/2023 3:26 PM EST documented as of this encounter Plan of Treatment Not on file documented as of this encounter Visit Diagnoses Not on filedocumented in this encounter Care Teams Honing Job Setter Relationship Specialty Start Date End Date Hawa Torres MD PCP - General Internal Medicine 11/09/22 Taya Gonzales MD Specialist Cardiology 11/01/20 Chandan Breen PA Specialist Cardiology 11/01/20 02/20/24 Jessi Erwin DNP Specialist Nurse Practitioner Family 02/21/24 documented as of this encounter
--- OUTSIDE RECORDS SUMMARY | 2024-11-04 13:51 | XMS_ITS | Encounter Summary ---
Author Organization [facility] Address [address] [place] [address] Care Team Providers Care Fleet Coordinator Name Role Phone Lul Lou MD Primary Care Provider Unavailab Salomón Cummings MD Primary Care Provider Unavail able Hawa Torres MD Primary Care Provider Unavaila Hawa Maddox MD Primary Care Provider Unavaila Taya Covington MD Unavailable [phone] Chandan Breen Unavailable Rancho Matthews MD Primary Care Provider [phone] [facility], Pcp Primary Care Provider UnavailRancho Brock MD Primary Care Provider [phone] Hawa Torres MD Primary Care Provider Unavaila Hawa Maddox MD Primary Care Provider Unavaila ble [place] [...] Provider Unavaila ble Jessi Erwin DNP Unavailable [phone] Encounter Details Date Type Department Care Team Description 06/05/2013 Orders Only Medicine/Pediatrics - [address] [id number] Lul Lou MD Serum potassium elevated (Primary Dx) Social History Tobacco Use Types [...] documented as of this encounter Results * POTASSIUM ASSAY (06/06/2013 10:42 AM EDT) Potassium 4.9 3.5 - 5.2 mEq/L 06/06/2013 12:01 PM EDT [facility] 06/06/2013 10:4 2 AM EDT 06/06/2013 10:42 AM EDT Lul Lou MD LAB Performing Organization Address City/State/[facility] Co de Phone Number [address] documented in this encounter Visit Diagnoses Diagnosis Serum potassium elevated- Primary Hyperpotassemia documented in this encounter Care Teams Fleet Coordinator Relationship Specialty Start Date End Date Lul Lou MD PCP - General Internal Medicine 05/16/12 06/06/14 Salomón Lou MD PCP - General Internal Medicine 09/01/14 09/08/15 Hawa Torres MD PCP - General Internal Medicine 09/09/15 12/19/20 Hawa Torres MD PCP - General 06/07/14 08/31/14 Rancho Matthews MD [address] [place] [address] PCP - General Internal Medicine 12/20/20 03/22/21 [facility], Pcp [address] [place] [address] PCP - General Internal Medicine 03/23/21 04/11/21 Rancho Matthews MD [address] [place] [address] PCP - General Internal Medicine 04/12/21 04/12/21 Hawa Torres MD [address] [place] [address] PCP - General Internal Medicine 04/13/21 06/05/21 Hawa Torres MD [address] [place] [address] PCP - General Internal Medicine 06/06/21 08/07/21 [facility], Pcp [address] [place] [address] PCP - General Internal Medicine 08/08/21 10/27/21 Hawa Torres MD PCP - General Internal Medicine 10/28/21 04/11/22 [facility], Pcp [address] [place] [address] PCP - General Internal Medicine 04/12/22 05/01/22 Hawa Torres MD [address] [place] [address] PCP - General Internal Medicine 05/02/22 05/21/22 Melonie Sorensen, [address] [place] [address] PCP - General Internal Medicine 05/22/22 09/07/22 [facility], Pcp [address] [place] [address] PCP - General Internal Medicine 09/08/22 11/08/22 Hawa Torres MD [address] [place] [address] PCP - General Internal Medicine 11/09/22 Taya Gonzales MD Specialist Cardiology 11/01/20 Chandan Breen PA Specialist Cardiology 11/01/20 02/20/24 Jessi Erwin DNP [address] [place] [address] Specialist Nurse Practitioner [facility] 02/21/24 documented as of this encounter
--- OUTSIDE RECORDS SUMMARY | 2024-11-04 13:51 | XMS_ITS | Encounter Summary ---
Author Organization [facility] Address [address] [place] [address] Care Team Providers Care Salvage Supervisor Name Role Phone Hawa Torres MD Primary Care Provider Unavaila Taya Covington MD Unavailable +[phone] Chandan Breen Unavailable + Rancho Matthews MD Primary Care Provider + [facility], [facility] Primary Care Provider UnavailRancho Brock MD Primary Care Provider +[phone] Hawa Torres MD Primary Care Provider Unavaila Hawa Maddox MD Primary Care Provider Unavaila elpidio [facility], Pcp Primary Care Provider UnavailHawa Barron MD Primary Care Provider Unavaila ble [facility], Pcp Primary Care Provider Hawa Zavala MD Primary Care Provider Unavaila Melonie Rojas DO Primary Care Pro vider Unavailable [facility], Pcp Primary Care Provider Hawa Zavala MD Primary Care Provider Unavaila Jessi Cagle [facility] Unavailable + Encounter Details Date Type Department Care Team Description 10/05/2020 Refill Medicine/Pediatrics - [address] [phone] Hawa Torres MD Social History Tobacco Use [...] have Coronavirus / COVID-19? No / Unsure 09/08/2020 1:21 PM EST documented as of this encounter Miscellaneous Notes * Telephone Encounter - Mariia BurroughsPSpencerNSpencer - 10/07/2020 9:36 AM EST Is this something new we are doing documented in this encounter Plan of Treatment Not on file documented as of this encounter Visit Diagnoses Not on filedocumented in this encounter Care Teams Salvage Supervisor Relationship Specialty Start Date End Date Hawa Torres MD PCP - General Internal Medicine 09/09/15 12/19/20 Rancho Matthews MD [address] [place] [address] PCP - General Internal Medicine 12/20/20 03/22/21 [facility], [address] [address] PCP - General Internal Medicine 03/23/21 04/11/21 Rancho Matthews MD [address] [place] [address] PCP - General Internal Medicine 04/12/21 04/12/21 Hawa Torres MD [address] [place] [address] PCP - General Internal Medicine 04/13/21 06/05/21 Hawa Torres MD [address] [place] [address] PCP - General Internal Medicine 06/06/21 08/07/21 [facility], Pcp [address] [place] [address] PCP - General Internal Medicine 08/08/21 10/27/21 Hawa Torres MD PCP - General Internal Medicine 10/28/21 04/11/22 [facility], Pcp [address] [place] [address] PCP - General Internal Medicine 04/12/22 05/01/22 Hawa Torres MD [address] [place] [address] PCP - General Internal Medicine 05/02/22 05/21/22 Melonie Sorensen DO [address] [place] [address] PCP - General Internal Medicine 05/22/22 09/07/22 [facility], Pcp [address] [place] [address] PCP - General Internal Medicine 09/08/22 11/08/22 Hawa Torres MD [address] [place] [address] PCP - General Internal Medicine 11/09/22 Taya Gonzales MD Specialist Cardiology 11/01/20 Chandan Breen PA Specialist Cardiology 11/01/20 02/20/24 Jessi Erwin DNP [address] [place] [address] Specialist Nurse Practitioner [facility] 02/21/24 documented as of this encounter
--- OUTSIDE RECORDS SUMMARY | 2024-11-04 13:51 | XMS_ITS | Encounter Summary ---
Author Organization [facility] Address [address] [place] [address] Care Team Providers Care Hat Mender Name Role Phone Hawa Torres MD Primary Care Provider Unavaila Taya Covington MD Unavailable +[phone] Chandan Breen Unavailable Rancho Matthews MD Primary Care Provider +[phone] [facility], Pcp Primary Care Provider UnavailRancho Brock MD Primary Care Provider [phone] Hawa Torres MD Primary Care Provider Unavaila Hawa Maddox MD Primary Care Provider Unavaila elpidio [facility], Pcp Primary Care Provider UnavailHawa Barron MD Primary Care Provider Unavaila ble [facility], Pcp Primary Care Provider Hawa Zavala MD Primary Care Provider Unavaila ble Melonie Sorensen DO Primary Care Pro vider Unavailable Community, Pcp Primary Care Provider Hawa Zavala MD Primary Care Provider Unavaila Jessi Cagle [facility] Unavailable [phone] Reason for Visit * Reason Onset Date Comments Biopsy 09/13/2020 Encounter Details Date Type Department Care Team Description 09/13/2020 Telephone General Surgery [address] [place] [address] Julio C Lawler MD [address] [address] Biopsy Social History Tobacco Use Types Packs/Day Years [...] encounter Miscellaneous Notes * Telephone Encounter - Lorin Chavarria M.A. - 09/13/2020 1:54 PM EST Stereotactic biopsy scheduled 10/21 9am documented in this encounter Plan of Treatment Not on file documented as of this encounter Visit Diagnoses Not on filedocumented in this encounter Care Teams Hat Mender Relationship Specialty Start Date End Date Hawa Torres MD PCP - General Internal Medicine 09/09/15 12/19/20 Rancho Matthews MD [address] [place] [address] PCP - General Internal Medicine 12/20/20 03/22/21 [facility], [address] [address] PCP - General Internal Medicine 03/23/21 04/11/21 Rancho Matthews MD [address] [place] [address] PCP - General Internal Medicine 04/12/21 04/12/21 Hawa Torres MD [address] [place] [address] PCP - General Internal Medicine 04/13/21 06/05/21 Hawa Torres MD [address] [place] [address] PCP - General Internal Medicine 06/06/21 08/07/21 [facility], Pcp [address] [place] [address] PCP - General Internal Medicine 08/08/21 10/27/21 Hawa Torres MD PCP - General Internal Medicine 10/28/21 04/11/22 [facility], Pcp [address] [place] [address] PCP - General Internal Medicine 04/12/22 05/01/22 Hawa Torres MD [address] [place] [address] PCP - General Internal Medicine 05/02/22 05/21/22 Melonie Sorensen, [address] [place] [address] PCP - General Internal Medicine 05/22/22 09/07/22 [facility], Pcp [address] [place] [address] PCP - General Internal Medicine 09/08/22 11/08/22 Hawa Torres MD [address] [place] [address] PCP - General Internal Medicine 11/09/22 Taya Gonzales MD Specialist Cardiology 11/01/20 Chandan Breen PA Specialist Cardiology 11/01/20 02/20/24 Jessi Erwin DNP [address] [place] [address] Specialist Nurse Practitioner [facility] 02/21/24 documented as of this encounter
--- OUTSIDE RECORDS SUMMARY | 2024-11-04 13:51 | XMS_ITS | Encounter Summary ---
Author Organization [facility] Address [address] [place] [address] Care Team Providers Care Administrative Staff Supervisor Name Role Phone Taya Gonzales MD Unavailable [phone] Chandan Breen Unavailable Melonie Sorensen DO Primary Care Pro vider Unavailable [facility], Pcp Primary Care Provider UnavailHawa Barron MD Primary Care Provider UnavailJessi Hogan DNP Unavailable [phone] Encounter Details Date Type Department Care Team Description 08/29/2022 Hospital Medical Records [address] [place] [address] Social History Tobacco Use Types Packs/Day Years [...] suspected to have Coronavirus/COVID-19? No / Unsure 09/01/2022 1:00 PM EST documented as of this encounter Plan of Treatment Not on file documented as of this encounter Visit Diagnoses Not on filedocumented in this encounter Care Teams Administrative Staff Supervisor Relationship Specialty Start Date End Date Melonie Sorensen DO PCP - General Internal Medicine 05/22/22 09/07/22 [facility], [facility] PCP - General Internal Medicine 09/08/22 11/08/22 Hawa Torres MD PCP - General Internal Medicine 11/09/22 Taya Gonzales MD Specialist Cardiology 11/01/20 Chandan Breen PA Specialist Cardiology 11/01/20 02/20/24 Jessi Erwin DNP Specialist Nurse Practitioner Family 02/21/24 documented as of this encounter
--- OUTSIDE RECORDS SUMMARY | 2024-11-04 13:51 | XMS_ITS | Encounter Summary ---
Author Organization [facility] Address [address] [place] [address] Care Team Providers Care Cook Ship Name Role Phone Hawa Torres MD Primary Care Provider Unavaila Taya Covington MD Unavailable +[phone] Chandan Breen Unavailable + Rancho Matthews MD Primary Care Provider + [facility], Pcp Primary Care Provider UnavailRancho Brock MD Primary Care Provider +[phone] Hawa Torres MD Primary Care Provider Unavaila Hawa Maddox MD Primary Care Provider Unavaila elpidio [facility], Pcp Primary Care Provider UnavailHawa Barron MD Primary Care Provider Unavaila ble [facility], Pcp Primary Care Provider Hawa Zavala MD Primary Care Provider Unavaila Melonie Rojas DO Primary Care Pro vider Unavailable [facility], Pcp Primary Care Provider Hawa Zavala MD Primary Care Provider Unavaila Jessi Cagle [facility] Unavailable + [phone] Encounter Details Date Type Department Care Team Description 05/23/2017 Pt. Non Urgent Medical Question Medicine/Pediatrics - [address] [phone] Hawa Torres MD Social History Tobacco Use [...] as of this encounter Progress Notes * Janae Murcia RN - 05/23/2017 3:54 PM EDTFrom: Dana Wallacejias To: Hawa Fish MD Sent: 05/23/2017 3:47 PM EDT Subject: medication refill My mom, Dana needs a new script called into [facility] furosemide 40 mg. documented in this encounter Plan of Treatment Not on file documented as of this encounter Visit Diagnoses Not on filedocumented in this encounter Care Teams Cook Ship Relationship Specialty Start Date End Date Hawa Torres MD PCP - General Internal Medicine 09/09/15 12/19/20 Rancho Matthews MD [address] [place] [address] PCP - General Internal Medicine 12/20/20 03/22/[address] [address] PCP - General Internal Medicine 03/23/21 04/11/21 Rancho Matthews MD [address] [place] [address] PCP - General Internal Medicine 04/12/21 04/12/21 Hawa Torres MD [address] [place] [address] PCP - General Internal Medicine 04/13/21 06/05/21 Hawa Torres MD [address] [place] [address] PCP - General Internal Medicine 06/06/21 08/07/21 [facility], Pcp [address] [place] [address] PCP - General Internal Medicine 08/08/21 10/27/21 Hawa Torres MD PCP - General Internal Medicine 10/28/21 04/11/22 [facility], Pcp [address] [place] [address] PCP - General Internal Medicine 04/12/22 05/01/22 Hawa Torres MD [address] [place] [address] PCP - General Internal Medicine 05/02/22 05/21/22 Melonie Sorensen, [address] [place] [address] PCP - General Internal Medicine 05/22/22 09/07/22 [facility], Pcp [address] [place] [address] PCP - General Internal Medicine 09/08/22 11/08/22 Hawa Torres MD [address] [place] [address] PCP - General Internal Medicine 11/09/22 Taya Gonzales MD Specialist Cardiology 11/01/20 Chandan Breen PA Specialist Cardiology 11/01/20 02/20/24 Jessi Erwin, KITTY [address] [place] [address] Specialist Nurse Practitioner [facility] 02/21/24 documented as of this encounter
--- OUTSIDE RECORDS SUMMARY | 2024-11-04 13:51 | XMS_ITS | Encounter Summary ---
Author Organization [facility] Address [address] [place] [address] Care Team Providers Care Commercial Fishing Vessel Operator Name Role Phone Hawa Torres MD Primary Care Provider UnavailTaya Lira MD Unavailable +[phone] Chandan Breen Unavailable Rancho Matthews MD Primary Care Provider +[phone] [facility], [facility], Pcp Primary Care Provider UnavailRancho Brock MD Primary Care Provider +[phone] Hawa Torres MD Primary Care Provider Unavaila Hawa Maddox MD Primary Care Provider Unavaila elpidio [facility], [facility], Pcp Primary Care Provider Hawa Zavala MD Primary Care Provider Unavaila ble [facility], [facility], Pcp Primary Care Provider Hawa Zavala MD Primary Care Provider Unavaila Melonie Rojas DO Primary Care Pro vider Unavailable Community, Pcp Primary Care Provider Hawa Zavala MD Primary Care Provider Unavaila Jessi Cagle [facility] Unavailable [phone] Encounter Details Date Type Department Care Team Description 11/25/2020 Telephone Cardio PVCA Diag Testing [address] [facility] [address] [place] [address] Julia Marcos, ANTONINO [address] [facility] [address] [place] [address] Social History Tobacco Use Types Packs/Day Years [...] have Coronavirus / COVID-19? No / Unsure 11/01/2020 9:19 AM EST documented as of this encounter Miscellaneous Notes * Telephone Encounter - Julia Marcos NP - 11/25/2020 3:15 PM EST FYI Scheduled remote - CorVue trending down - spoke with daughter - pt currently inpatient at [facility] with PE. Reported that patient will require left sided breast radiation - some question of device repositioning - I will reach out to Dr Mcclelland documented in this encounter Plan of Treatment Not on file documented as of this encounter Visit Diagnoses Not on filedocumented in this encounter Care Teams Commercial Fishing Vessel Operator Relationship Specialty Start Date End Date Hawa Torres MD PCP - General Internal Medicine 09/09/15 12/19/20 Rancho Matthews MD [address] [place] [address] PCP - General Internal Medicine 12/20/20 03/22/21 [facility], [facility], [address] [address] PCP - General Internal Medicine 03/23/21 04/11/21 Rancho Matthews MD [address] [place] [address] PCP - General Internal Medicine 04/12/21 04/12/21 Hawa Torres MD [address] [place] [address] PCP - General Internal Medicine 04/13/21 06/05/21 Hawa Torres MD [address] [place] [address] PCP - General Internal Medicine 06/06/21 08/07/21 [facility], [facility], Pcp [address] [place] [address] PCP - General Internal Medicine 08/08/21 10/27/21 Hawa Torres MD PCP - General Internal Medicine 10/28/21 04/11/22 [facility], [facility], Pcp [address] [place] [address] PCP - General Internal Medicine 04/12/22 05/01/22 Hawa Torres MD [address] [place] [address] PCP - General Internal Medicine 05/02/22 05/21/22 Melonie Sorensen, DO [address] [place] [address] PCP - General Internal Medicine 05/22/22 09/07/22 [facility], [facility], Pcp [address] [place] [address] PCP - General Internal Medicine 09/08/22 11/08/22 Hawa Torres MD [address] [place] [address] PCP - General Internal Medicine 11/09/22 Taya Gonzales MD Specialist Cardiology 11/01/20 Chandan Breen PA Specialist Cardiology 11/01/20 02/20/24 Jessi Erwin DNP [address] [place] [address] Specialist Nurse Practitioner [facility] 02/21/24 documented as of this encounter
--- OUTSIDE RECORDS SUMMARY | 2024-11-04 13:51 | XMS_ITS | Encounter Summary ---
Author Organization [facility] Address [address] [place] [address] Care Team Providers Care Toll Booth Operator Name Role Phone Hawa Torres MD Primary Care Provider UnavailTaya Lira MD Unavailable + Chandan Breen Unavailable + Rancho Matthews MD Primary Care Provider + [facility], Pcp Primary Care Provider UnavailRancho Brock MD Primary Care Provider + Hawa Torres MD Primary Care Provider Unavaila Hawa Maddox MD Primary Care Provider Unavaila elpidio [facility], Pcp Primary Care Provider UnavailHawa Barron MD Primary Care Provider Unavaila ble [facility], Pcp Primary Care Provider Hawa Zavala MD Primary Care Provider Unavaila Melonie Rojas DO Primary Care Pro vider Unavailable Community, Pcp Primary Care Provider Hawa Zavala MD Primary Care Provider Unavaila Jessi Cagle [facility] Unavailable + Encounter Details Date Type Department Care Team Description 06/17/2020 Computer Numerical Control Programmer Report Medical Records [address] [place] [address] Taya Gonzales MD [address] [place] [address] [id number] Social History Tobacco Use Types Packs/Day Years [...] have Coronavirus / COVID-19? No / Unsure 06/07/2020 11:22 AM EDT documented as of this encounter Plan of Treatment Not on file documented as of this encounter Visit Diagnoses Not on filedocumented in this encounter Care Teams Toll Booth Operator Relationship Specialty Start Date End Date Hawa Torres MD PCP - General Internal Medicine 09/09/15 12/19/20 Rancho Matthews MD [address] [place], [place] [phone] PCP - General Internal Medicine 12/20/20 03/22/21 [facility], [address] [address] PCP - General Internal Medicine 03/23/21 04/11/21 Rancho Matthews MD [address] [place] [address] PCP - General Internal Medicine 04/12/21 04/12/21 Hawa Torres MD [address] [place] [address] PCP - General Internal Medicine 04/13/21 06/05/21 aHwa Torres MD [address] [place] [address] PCP - General Internal Medicine 06/06/21 08/07/21 [facility], [address] [address] PCP - General Internal Medicine 08/08/21 10/27/21 Hawa Torres MD PCP - General Internal Medicine 10/28/21 04/11/22 [facility], Pcp [address] [place] [address] PCP - General Internal Medicine 04/12/22 05/01/22 Hawa Torres MD [address] [place] [address] PCP - General Internal Medicine 05/02/22 05/21/22 Melonie Sorensen DO [address] [place] [address] PCP - General Internal Medicine 05/22/22 09/07/22 [facility], Pcp [address] [place] [address] PCP - General Internal Medicine 09/08/22 11/08/22 Hawa Torres MD [address] [place] [address] PCP - General Internal Medicine 11/09/22 Taya Gonzales MD Specialist Cardiology 11/01/20 Chandan Breen PA Specialist Cardiology 11/01/20 02/20/24 Jessi Erwin, KITTY [address] [place] [address] Specialist Nurse Practitioner Family 02/21/24 documented as of this encounter
--- OUTSIDE RECORDS SUMMARY | 2024-11-04 13:51 | XMS_ITS | Encounter Summary ---
Author Organization [facility] Address [address] [place] [address] Care Team Providers Care Odd Job Laborer Name Role Phone Hawa Torres MD Primary Care Provider Unavaila Taya Covington MD Unavailable +[phone] Chandan Breen Unavailable Rancho Matthews MD Primary Care Provider +[phone] [facility], Pcp Primary Care Provider UnavailRancho Brock MD Primary Care Provider +[phone] Hawa Torres MD Primary Care Provider Unavaila Hawa Maddox MD Primary Care Provider Unavaila elpiido [facility], Pcp Primary Care Provider UnavailHawa Barron MD Primary Care Provider Unavaila ble [facility], Pcp Primary Care Provider Hawa Zavala MD Primary Care Provider Unavaila ble Melonie Sorensen DO Primary Care Pro vider Unavailable Community, Pcp Primary Care Provider UnavailHawa Barron MD Primary Care Provider Unavaila Jessi Cagle [facility] Unavailable + [phone] Encounter Details Date Type Department Care Team Description 04/22/2020 Telephone Dermatology - [address] [phone] Leda Lucas PA-C Social History [...] Telephone Encounter - Ceci Almodovar M.A. - 04/22/2020 4:05 PM EDT Regarding: Itching Contact: ----- Message from Michael Parry sent at 04/22/2020 3:34 PM EDT ----- Good Afternoon, Mom tells me the itching is manageable. She's still itching, but not as all over or as intensely asbefore. The worst of it is the upper back, in between the shoulder blades. From what I can see the scabs appear to be drying up, but she says she's still getting new sores, but not as many. What should we do next? documented in this encounter Plan of Treatment Not on file documented as of this encounter Visit Diagnoses Not on filedocumented in this encounter Care Teams Odd Job Laborer Relationship Specialty Start Date End Date Hawa Torres MD PCP - General Internal Medicine 09/09/15 12/19/20 Rancho Matthews MD [address] [place] [address] PCP - General Internal Medicine 12/20/20 03/22/21 [facility], [address] [address] PCP - General Internal Medicine 03/23/21 04/11/21 Rancho Matthews MD [address] [place] [address] PCP - General Internal Medicine 04/12/21 04/12/21 Hawa Torres MD [address] [place] [address] PCP - General Internal Medicine 04/13/21 06/05/21 Hawa Torres MD [address] [place] [address] PCP - General Internal Medicine 06/06/21 08/07/21 [facility], Pcp [address] [place] [address] PCP - General Internal Medicine 08/08/21 10/27/21 Hawa Torres MD PCP - General Internal Medicine 10/28/21 04/11/22 [facility], Pcp [address] [place] [address] PCP - General Internal Medicine 04/12/22 05/01/22 Hawa Torres MD [address] [place] [address] PCP - General Internal Medicine 05/02/22 05/21/22 Melonie Soernsen, DO [address] [place] [address] PCP - General Internal Medicine 05/22/22 09/07/22 [facility], Pcp [address] [place] [address] PCP - General Internal Medicine 09/08/22 11/08/22 Hawa Torres MD [address] [place] [address] PCP - General Internal Medicine 11/09/22 Taya Gonzales MD Specialist Cardiology 11/01/20 Chandan Breen PA Specialist Cardiology 11/01/20 02/20/24 Jessi Erwin DNP [address] [place] [address] Specialist Nurse Practitioner [facility] 02/21/24 documented as of this encounter
--- OUTSIDE RECORDS SUMMARY | 2024-11-04 13:51 | XMS_ITS | Encounter Summary ---
Author Organization [facility] Address [address] [place] [address] Care Team Providers Care Sales Applications Engineer Name Role Phone Taya Gonzales MD Unavailable [phone] Chandan Breen Unavailable Community, Pcp Primary Care Provider Hawa Zavala MD Primary Care Provider UnavailJessi Hogan [facility] Unavailable [phone] Encounter Details Date Type Department Care Team Description 10/26/2022 Manager Apple Report Medical Records [address] [place] [address] Hawa Torres MD Social History Tobacco Use [...] suspected to have Coronavirus/COVID-19? No / Unsure 10/25/2022 3:14 PM EST documented as of this encounter Plan of Treatment Not on file documented as of this encounter Visit Diagnoses Not on filedocumented in this encounter Care Teams Sales Applications Engineer Relationship Specialty Start Date End Date Community, Pcp PCP - General Internal Medicine 09/08/22 11/08/22 Hawa Torres MD PCP - General Internal Medicine 11/09/22 Taya Gonzales MD Specialist Cardiology 11/01/20 Chandan Breen PA Specialist Cardiology 11/01/20 02/20/24 Jessi Erwin DNP Specialist Nurse Practitioner [facility] 02/21/24 documented as of this encounter
--- OUTSIDE RECORDS SUMMARY | 2024-11-04 13:51 | XMS_ITS | Encounter Summary ---
Author Organization [facility] Address [address] [place] [address] Care Team Providers Care Director Of Sales Marketing Name Role Phone Taya Gonzales MD Unavailable [phone] Chandan Breen Unavailable Community, Pcp Primary Care Provider Hawa Zavala MD Primary Care Provider UnavailJessi Hogan DNP Unavailable [phone] Encounter Details Date Type Department Care Team Description 09/20/2022 CGM Report Medical Records [address] [place] [id number] Abstract, Provider Social History Tobacco Use Types [...] In the last 10 days, have braxton u been in contact with someone who was confirmed or suspected to have Coronavirus/COVID-19? No / Unsure 09/01/2022 1:00 PM EST documented as of this encounter Plan of Treatment Not on file documented as of this encounter Visit Diagnoses Not on filedocumented in this encounter Care Teams Director Of Sales Marketing Relationship Specialty Start Date End Date Community, Pcp PCP - General Internal Medicine 09/08/22 11/08/22 Hawa Torres MD PCP - General Internal Medicine 11/09/22 Taya Gonzales MD Specialist Cardiology 11/01/20 Chandan Breen PA Specialist Cardiology 11/01/20 02/20/24 Jessi Erwin DNP Specialist Nurse Practitioner [facility] 02/21/24 documented as of this encounter
--- OUTSIDE RECORDS SUMMARY | 2024-11-04 13:51 | XMS_ITS | Encounter Summary ---
Author Organization [facility] Address [address] [place] [address] Care Team Providers Care Extracting Machine Operator Name Role Phone Taya Gonzales MD Unavailable [phone] Hawa Torres MD Primary Care Provider Unavaila Jessi Cagle DNP Unavailable [phone] Reason for Visit * Reason Onset Date Comments refill request 05/07/2024 Encounter Details Date Type Department Care Team Description 05/07/2024 Refill Endocrinology - [address] [address] Lucille Clarke PA-C [address] [place] [address] refill request Social History Tobacco Use Types Packs/Day Years [...] encounter Miscellaneous Notes * Telephone Encounter - Laura Pierson - 05/07/2024 1:32 PM EDT Lab Results Component Value Date HGBA1C 7.7 05/11/2022 MALBUR 437.0 11/11/2021 MALBCR 1409.6 11/11/2021 CHOL 138 06/25/2020 LDL 54 06/25/2020 HDL 55 06/25/2020 TRIG 145 06/25/2020 GLU 205 05/11/2022 CREAT 2.54 05/11/2022 * Telephone Encounter - Liliane Marte - 05/07/2024 1:24 PM EDT Did you check the Pharmacy information above?: YES Patient wants: 30 -day supply Is this a mail order prescription request ? NO If the refill is from a FAXED refill request what is the RX # listed on the fax? N/A Patients current insurance carrier is: Payor: [facility] FFS / Plan: [employer] MEDICARE ADVANTAGE $0/$20 / Product Type: MEDICARE [id number] documented in this encounter Plan of Treatment Not on file documented as of this encounter Visit Diagnoses Diagnosis Uncontrolled type 2 diabetes mellitus with hyperglycemia (HCC) documented in this encounter Care Teams Extracting Machine Operator Relationship Specialty Start Date End Date Hawa Torres MD PCP - General Internal Medicine 11/09/22 Taya Gonzales MD Specialist Cardiology 11/01/20 Jessi Erwin DNP Specialist Nurse Practitioner Family 02/21/24 documented as of this encounter
--- OUTSIDE RECORDS SUMMARY | 2024-11-04 13:51 | XMS_ITS | Encounter Summary ---
Author Organization [facility] Address [address] [place] [address] Care Team Providers Care New Car Sales Manager Name Role Phone Lul Lou MD Primary Care Provider Unavailab Salomón Cummings MD Primary Care Provider Unavail able Hawa Torres MD Primary Care Provider Unavaila Hawa Maddox MD Primary Care Provider Unavaila Taya Covington MD Unavailable [phone] Chandan Breen Unavailable Rancho Matthews MD Primary Care Provider [phone] [facility], Pcp Primary Care Provider Unavailabl Rancho Martin MD Primary Care Provider [phone] Hawa Torres MD Primary Care Provider Unavaila Hawa Maddox MD Primary Care Provider Unavaila ble [facility], Pcp Primary Care Provider UnavailHawa Barron MD Primary Care Provider Unavaila ble [facility], Pcp Primary Care Provider UnavailHawa Barron MD Primary Care Provider Unavaila ble Melonie Sorensen DO Primary Care Pro vider Unavailable Community, Pcp Primary Care Provider UnavailHawa Barron MD Primary Care Provider Unavaila ble Jessi Erwin DNP Unavailable [phone] Encounter Details Date Type Department Care Team Description 10/11/2012 Victim Advocate Report Medical Records [address] [place] [address] Marquez Dunham Social History Tobacco Use Types Packs/Day Years [...] on filedocumented in this encounter Care Teams New Car Sales Manager Relationship Specialty Start Date End Date Lul Lou MD PCP - General Internal Medicine 05/16/12 06/06/14 Salomón Lou MD PCP - General Internal Medicine 09/01/14 09/08/15 Hawa Torres MD PCP - General Internal Medicine 09/09/15 12/19/20 Hawa Torres MD PCP - General 06/07/14 08/31/14 Rancho Matthews MD [address] [place] [address] PCP - General Internal Medicine 12/20/20 03/22/21 [facility], [address] [address] PCP - General Internal Medicine 03/23/21 04/11/21 Rancho Matthews MD [address] [place] [address] PCP - General Internal Medicine 04/12/21 04/12/21 Hawa Torres MD [address] [place] [address] PCP - General Internal Medicine 04/13/21 06/05/21 Hawa Torres MD [address] [place] [address] PCP - General Internal Medicine 06/06/21 08/07/21 [facility], [address] [address] PCP - General Internal Medicine 08/08/21 10/27/21 Hawa Torres MD PCP - General Internal Medicine 10/28/21 04/11/22 [facility], Pcp [address] [place] [address] PCP - General Internal Medicine 04/12/22 05/01/22 Hawa Torres MD [address] [place] [address] PCP - General Internal Medicine 05/02/22 05/21/22 Melonie Sorensen, [address] [place] [address] PCP - General Internal Medicine 05/22/22 09/07/22 [facility], Pcp [address] [place] [address] PCP - General Internal Medicine 09/08/22 11/08/22 Hawa Torres MD [address] [place] [address] PCP - General Internal Medicine 11/09/22 Taya Gonzales MD Specialist Cardiology 11/01/20 Chandan Breen PA Specialist Cardiology 11/01/20 02/20/24 Jessi Erwin, KITTY [address] [place] [address] Specialist Nurse Practitioner [facility] 02/21/24 documented as of this encounter
--- OUTSIDE RECORDS SUMMARY | 2024-11-04 13:51 | XMS_ITS | Encounter Summary ---
Author Organization [facility] Address [address] [place] [address] Care Team Providers Care Food Checkers And Cashiers Supervisor Name Role Phone Hawa Torres MD Primary Care Provider Unavaila Taya Covington MD Unavailable [phone] Chandan Breen Unavailable Rancho Matthews MD Primary Care Provider [phone] [facility], Pcp Primary Care Provider UnavailRancho Brock MD Primary Care Provider [phone] Hawa Torres MD Primary Care Provider Unavaila Hawa Maddox MD Primary Care Provider Unavaila ble [facility], Pcp Primary Care Provider UnavailHawa Barron MD Primary Care Provider Unavaila ble [facility], Pcp Primary Care Provider Hawa Zavala MD Primary Care Provider Unavaila ble Melonie Sorensen DO Primary Care Pro vider Unavailable Community, Pcp Primary Care Provider UnavailHawa Barron MD Primary Care Provider Unavaila Jessi Cagle [facility] Unavailable + [phone] Encounter Details Date Type Department Care Team Description 08/18/2020 Pt. Non Urgent Medic al Question Dermatology - [address] [phone] Leda Lucas PA-C Social History [...] have Coronavirus / COVID-19? No / Unsure 08/03/2020 3:49 PM EST documented as of this encounter Plan of Treatment Not on file documented as of this encounter Visit Diagnoses Not on filedocumented in this encounter Care Teams Food Checkers And Cashiers Supervisor Relationship Specialty Start Date End Date Hawa Torres MD PCP - General Internal Medicine 09/09/15 12/19/20 Rancho Matthews MD [address] [place] [address] PCP - General Internal Medicine 12/20/20 03/22/21 [facility], Pcp [address] [place], [place] [phone] PCP - General Internal Medicine 03/23/21 04/11/21 Rancho Matthews MD [address] [place] [address] PCP - General Internal Medicine 04/12/21 04/12/21 Hawa Torres MD [address] [place] [address] PCP - General Internal Medicine 04/13/21 06/05/21 Hawa Torres MD [address] [place] [address] PCP - General Internal Medicine 06/06/21 08/07/21 [facility], Pcp [address] [place] [address] PCP - General Internal Medicine 08/08/21 10/27/21 Hawa Torres MD PCP - General Internal Medicine 10/28/21 04/11/22 [facility], Pcp [address] [place] [address] PCP - General Internal Medicine 04/12/22 05/01/22 Hawa Torres MD [address] [place] [address] PCP - General Internal Medicine 05/02/22 05/21/22 Melonie Sorensen DO [address] [place] [address] PCP - General Internal Medicine 05/22/22 09/07/22 [facility], Pcp [address] [place] [address] PCP - General Internal Medicine 09/08/22 11/08/22 Hawa Torres MD [address] [place] [address] PCP - General Internal Medicine 11/09/22 Taya Gonzales MD Specialist Cardiology 11/01/20 Chandan Breen PA Specialist Cardiology 11/01/20 02/20/24 Jessi Erwin DNP [address] [place] [address] Specialist Nurse Practitioner Family 02/21/24 documented as of this encounter
--- OUTSIDE RECORDS SUMMARY | 2024-11-04 13:51 | XMS_ITS | Encounter Summary ---
Author Organization [facility] Address [address] [place] [address] Care Team Providers Care Automotive Paint Technician Name Role Phone Taya Gonzales MD Unavailable [phone] Chandan Breen Unavailable Hawa Torres MD Primary Care Provider Unavaila Jessi Cagle DNP Unavailable [phone] Encounter Details Date Type Department Care Team Description 04/04/2023 CGM Report Medical Records [address] [place] [address] Abstract, Provider Social History Tobacco Use Types [...] on filedocumented in this encounter Care Teams Automotive Paint Technician Relationship Specialty Start Date End Date Hawa Torres MD PCP - General Internal Medicine 11/09/22 Taya Gonzales MD Specialist Cardiology 11/01/20 Chandan Breen PA Specialist Cardiology 11/01/20 02/20/24 Jessi Erwin DNP Specialist Nurse Practitioner Family 02/21/24 documented as of this encounter
--- OUTSIDE RECORDS SUMMARY | 2024-11-04 13:51 | XMS_ITS | Encounter Summary ---
Author Organization [facility] Address [address] [place] [address] Care Team Providers Care Claims Administrator Name Role Phone Hawa Torres MD Primary Care Provider UnavailTaya Lira MD Unavailable [phone] Chandan Breen Unavailable Rancho Matthews MD Primary Care Provider [phone] [facility], Pcp Primary Care Provider UnavailRancho Brock MD Primary Care Provider [phone] Hawa Torres MD Primary Care Provider Unavaila Hawa Maddox MD Primary Care Provider Unavaila elpidio [facility], Pcp Primary Care Provider UnavailHawa Barron MD Primary Care Provider Unavaila ble [facility], Pcp Primary Care Provider Hawa Zavala MD Primary Care Provider Unavaila Melonie Rojas DO Primary Care Pro vider Unavailable Community, Pcp Primary Care Provider Hawa Zavala MD Primary Care Provider Unavaila Jessi Cagle [facility] Unavailable [phone] Encounter Details Date Type Department Care Team Description 11/30/2020 Orders Only Medical Records [address] [place] [address] Julio C Lawler MD [address] [place] [address] Social History Tobacco Use Types Packs/Day Years [...] have Coronavirus / COVID-19? No / Unsure 11/30/2020 8:57 AM EST documented as of this encounter Plan of Treatment Not on file documented as of this encounter Procedures Procedure Name Priority Date/Time Associated Diagnosis Comments OUTSIDE PATHOLOGY Routine 11/15/2020 documented in this encounter Results * OUTSIDE PATHOLOGY (11/15/2020) Julio C Lawler MD OUTSIDE LAB documented in this encounter Visit Diagnoses Not on filedocumented in this encounter Care Teams Claims Administrator Relationship Specialty Start Date End Date Hawa Torres MD PCP - General Internal Medicine 09/09/15 12/19/20 Rancho Matthews MD [address] [place] [address] PCP - General Internal Medicine 12/20/20 03/22/[address] [address] PCP - General Internal Medicine 03/23/21 04/11/21 Rancho Matthews MD [address] [place] [address] PCP - General Internal Medicine 04/12/21 04/12/21 Hawa Torres MD [address] [place] [address] PCP - General Internal Medicine 04/13/21 06/05/21 Hawa Torres MD [address] [place] [address] PCP - General Internal Medicine 06/06/21 08/07/21 [facility], Pcp [address] [place] [address] PCP - General Internal Medicine 08/08/21 10/27/21 Hawa Torres MD PCP - General Internal Medicine 10/28/21 04/11/22 [facility], Pcp [address] [place] [address] PCP - General Internal Medicine 04/12/22 05/01/22 Hawa Torres MD [address] [place] [address] PCP - General Internal Medicine 05/02/22 05/21/22 Melonie Sorensen DO [address] [place] [address] PCP - General Internal Medicine 05/22/22 09/07/22 [facility], Pcp [address] [place] [address] PCP - General Internal Medicine 09/08/22 11/08/22 Hawa Torres MD [address] [place] [address] PCP - General Internal Medicine 11/09/22 Taya Gonzales MD Specialist Cardiology 11/01/20 Chandan Breen PA Specialist Cardiology 11/01/20 02/20/24 Jessi Erwin DNP [address] [place] [address] Specialist Nurse Practitioner [facility] 02/21/24 documented as of this encounter
--- OUTSIDE RECORDS SUMMARY | 2024-11-04 13:51 | XMS_ITS | Encounter Summary ---
Author Organization [facility] Address [address] [place] [address] Care Team Providers Care Two Way Radio Technician Name Role Phone Hawa Torres MD Primary Care Provider Unavaila Taya Covington MD Unavailable +[phone] Chandan Breen Unavailable + Rancho Matthews MD Primary Care Provider + [facility], Pcp Primary Care Provider UnavailRancho Brock MD Primary Care Provider +[phone] Hawa Torres MD Primary Care Provider Unavaila Hawa Maddox MD Primary Care Provider Unavaila elpidio [facility], Pcp Primary Care Provider UnavailHawa Barron MD Primary Care Provider Unavaila ble [facility], Pcp Primary Care Provider Hawa Zavala MD Primary Care Provider Unavaila Melonie Rojas DO Primary Care Pro vider Unavailable Community, Pcp Primary Care Provider Hawa Zavala MD Primary Care Provider Unavaila Jessi Cagle [facility] Unavailable + [phone] Encounter Details Date Type Department Care Team Description 04/12/2017 Hospital Medical Records [address] [place] [address] Cecilio Singh MD [address] [place] [address] [phone] Social History Tobacco Use Types Packs/Day Years [...] on filedocumented in this encounter Care Teams Two Way Radio Technician Relationship Specialty Start Date End Date Hawa Torres MD PCP - General Internal Medicine 09/09/15 12/19/20 Rancho Matthews MD [address] [place] [address] PCP - General Internal Medicine 12/20/20 03/22/21 [facility], Pcp [address] [place] [address] PCP - General Internal Medicine 03/23/21 04/11/21 Rancho Matthews MD [address] [place] [address] PCP - General Internal Medicine 04/12/21 04/12/21 Hawa Torres MD [address] [place] [address] PCP - General Internal Medicine 04/13/21 06/05/21 Hawa Torres MD [address] [place] [address] PCP - General Internal Medicine 06/06/21 08/07/21 [facility], Pcp [address] [place], [place] [address] [place] [address] PCP - General Internal Medicine 08/08/21 10/27/21 Hawa Torres MD PCP - General Internal Medicine 10/28/21 04/11/22 [facility], Pcp [address] [place] [address] PCP - General Internal Medicine 04/12/22 05/01/22 Hawa Torres MD [address] [place] [address] PCP - General Internal Medicine 05/02/22 05/21/22 Melonie Sorensen DO [address] [place] [address] PCP - General Internal Medicine 05/22/22 09/07/22 [facility], [address] [address] PCP - General Internal Medicine 09/08/22 11/08/22 Hawa Torres MD [address] [place] [address] PCP - General Internal Medicine 11/09/22 Taya Gonzales MD Specialist Cardiology 11/01/20 Chandan Breen PA Specialist Cardiology 11/01/20 02/20/24 Jessi Erwin DNP [address] [place] [address] Specialist Nurse Practitioner Family 02/21/24 documented as of this encounter
--- OUTSIDE RECORDS SUMMARY | 2024-11-04 13:51 | XMS_ITS | Encounter Summary ---
Author Organization [facility] Address [address] [place] [address] Care Team Providers Care Fern Picker Name Role Phone Taya Gonzales MD Unavailable [phone] Chandan Breen Unavailable Hawa Torres MD Primary Care Provider Unavaila ble [facility], Pcp Primary Care Provider Hawa Zavala MD Primary Care Provider Unavaila ble [facility], Pcp Primary Care Provider UnavailHawa Barron MD Primary Care Provider Unavaila ble Melonie Sorensen DO Primary Care Pro vider Unavailable [facility], Pcp Primary Care Provider Hawa Zavala MD Primary Care Provider Unavaila ble Jessi Erwin [facility] Unavailable [phone] Reason for Visit * Reason Comments E-prescribe Rx Request Encounter Details Date Type Department Care Team Description 08/03/2021 Refill Adult Medicine [address] [phone] Rancho Matthews MD [address] [place] [address] [phone] E-prescribe Rx Request Social History Tobacco Use Types Packs/Day Years [...] have Coronavirus / COVID-19? No / Unsure 08/03/2021 12:50 PM EST documented as of this encounter Miscellaneous Notes * Telephone Encounter - Steve Kraft - 08/05/2021 9:55 AM EST Last OV 03/11/21 (w/ Dr Matthews.) Upcoming Appt: NA. *Please note patient needs new PCP. Please adjust quantity and/or approve as you see fit.* Lab Results Component Value Date NA 139 01/21/2021 K 5.0 01/21/2021 CO2 32 01/21/2021 CL 104 01/21/2021 BUN 47 01/21/2021 CREAT 1.69 01/21/2021 GLU 231 04/21/2021 CA 11.5 01/21/2021 GFR 29 01/21/2021 documented in this encounter Plan of Treatment Not on file documented as of this encounter Visit Diagnoses Not on filedocumented in this encounter Care Teams Fern Picker Relationship Specialty Start Date End Date Hawa Torres MD PCP - General Internal Medicine 06/06/21 08/07/21 Community, Pcp PCP - General Internal Medicine 08/08/21 10/27/21 Hawa Torres MD PCP - General Internal Medicine 10/28/21 04/11/22 Community, Pcp PCP - General Internal Medicine 04/12/22 05/01/22 Hawa Torres MD PCP - General Internal Medicine 05/02/22 05/21/22 Melonie Sorensen DO PCP - General Internal Medicine 05/22/22 09/07/22 [facility], Pcp PCP - General Internal Medicine 09/08/22 11/08/22 Hawa Torres MD PCP - General Internal Medicine 11/09/22 Taya Gonzales MD Specialist Cardiology 11/01/20 Chandan Breen PA Specialist Cardiology 11/01/20 02/20/24 Jessi Erwin DNP Specialist Nurse Practitioner Family 02/21/24 documented as of this encounter
--- OUTSIDE RECORDS SUMMARY | 2024-11-04 13:51 | XMS_ITS | Encounter Summary ---
Author Organization [facility] Address [address] [place] [address] Care Team Providers Care Documentation Coordinator Name Role Phone Taya Gonzales MD Unavailable [phone] Chandan Breen Unavailable Melonie Sorensen DO Primary Care Pro vider Unavailable [facility], Pcp Primary Care Provider UnavailHawa Barron MD Primary Care Provider UnavailJessi Hogan DNP Unavailable [phone] Reason for Visit * Reason Onset Date Comments Appointment Cancelled 08/28/2022 Encounter Details Date Type Department Care Team Description 08/28/2022 Telephone Nephrology - [address] [phone] Mc Barragan MD [address] [place] [address] Appointment Cancelled Social History Tobacco Use Types Packs/Day Years [...] encounter Miscellaneous Notes * Telephone Encounter - Yanick Robert - 08/28/2022 11:24 AM EST Patient has been hospitalized since . She was transferred from [facility] to [facility] and placed on dialysis documented in this encounter Plan of Treatment Not on file documented as of this encounter Visit Diagnoses Not on filedocumented in this encounter Care Teams Documentation Coordinator Relationship Specialty Start Date End Date Melonie Sorensen DO PCP - General Internal Medicine 05/22/22 09/07/22 [facility], Pcp PCP - General Internal Medicine 09/08/22 11/08/22 Hawa Torres MD PCP - General Internal Medicine 11/09/22 Taya Gonzales MD Specialist Cardiology 11/01/20 Chandan Breen PA Specialist Cardiology 11/01/20 02/20/24 Jessi Erwin DNP Specialist Nurse Practitioner Family 02/21/24 documented as of this encounter
--- OUTSIDE RECORDS SUMMARY | 2024-11-04 13:51 | XMS_ITS | Clinical Summary ---
Author Organization [facility] Address [address] [place] [address] Care Team Providers Care Medical Intern Name Role Phone Hawa Fish MD Primary Care Provider [phone] Allergies Active Allergy Reactions Criticality Noted Date Comments Iodinated Contrast Media 10/29/2020 Lisinopril 10/29/2020 Spironolactone 10/29/2020 Cetirizine 10/29/2020 Medications Medication Sig Dispensed Refills Start Date End Date Status famotidine (PEPCID) 20 MG tablet Take 1 tablet (20 mg total) by mouth 2 (two) times a day. 0 Active levothyroxine (SYNTHROID, LEVOXYL) tablet 112 mcg Take 1 tablet (112 mcg total) by mouth daily. 0 Active MULTIPLE VITAMIN PO Take by mouth daily. 0 Active calcipotriene (DOVONOX) 0.005 % ointment Apply topically 2 (two) times a day. 0 Active atorvastatin (LIPITOR) tablet 40 mg Take 1 tablet (40 mg total) by mouth daily. 0 Active loratadine (CLARITIN) 10 MG tablet Take 1 tablet (10 mg total) by mouth daily. 0 Active senna (SENOKOT) 8.6 MG tablet Take 1 tablet by mouth daily. 0 Active clobetasol (TEMOVATE) 0.05 % cream Apply topically 2 (two) times a day. 0 Active carvedilol (COREG) 25 MG tablet Take 3.25 mg by mouth 2 (two) times a day with meals. 0 Active sodium polystyrene (KAYEXALATE) 15 GM/60ML suspension Take 60 mL (15 g total) by mouth once. 0 Active Acetaminophen 500 MG coapsule Take by mouth. 0 Active Insulin Lispro (HUMALOG PEN SC) Inject 100 Units under the skin 3 (three) times a day. 0 Active torsemide (DEMADEX) 20 MG tablet Take 1 tablet (20 mg total) by mouth 2 (two) times a day. 0 Active aspirin 81 MG EC tablet Take 1 tablet (81 mg total) by mouth daily. 0 Active Syringe/Needle, Disp, (Dialysis Safety Syringe/Needle) 22G X 1-1/2 1 ML MISC by Does not apply route. Patient started dialysis on August 17, 2022 0 Active busPIRone (BUSPAR) 15 MG tablet Take 1 tablet (15 mg total) by mouth 3 (three) times a day. 0 Active sevelamer (RENVELA) 800 MG tablet Take 1 tablet (800 mg total) by mouth 3 (three) times a day with meals. 0 Active omeprazole (PriLOSEC) 20 MG capsule Take 1 capsule (20 mg total) by mouth daily. 0 Active FLUoxetine (PROzac) 10 MG capsule Take 1 capsule (10 mg total) by mouth daily. 0 Active letrozole (FEMARA) 2.5 MG tablet TOME CAMERON TABLETA TODOS [place] BERNSTEIN 90 tablet 3 02/22/2024 Active Active Problems Problem Noted Date Diagnosed Date Malignant neoplasm of overla pping sites of left breast in female, estrogen receptor positive 10/29/2020 Social History Tobacco Use Types Packs/Day Years Used Date Smoking Tobacco: Former Smokeless Tobacco: Never Alcohol Use Standard Drinks/Week Comments No 0 (1 standard drink = 0.6 oz pur e alcohol) Sex and Gender Information Value Date Recorded Sex Assigned at Not on file Gender Identity Not on file Sexual Orientation Not on file Job Start Date Occupation Industry Not on file Not on file Not on file Last Filed Vital Signs Vital Sign Reading Time Taken Comments Blood Pressure 133/47 03/18/2024 3:51 PM EDT Pulse 60 03/18/2024 3:51 PM EDT Temperature 36.2 ??C (97.1 ??F) 03/18/2024 3:51 PM ED T Respiratory Rate - - Oxygen Saturation 100% 03/18/2024 3:51 PM EDT Inhaled Oxygen Concentration - - Weight 65.3 kg (144 lb) 03/18/2024 3:51 PM EDT Height 152.4 cm (5') 03/13/2022 9:53 AM EDT Body Mass Index 28.12 03/13/2022 9:53 AM EDT Plan of Treatment Health Maintenance Due Date Last Done Comments Depression Screening 1954 Preventative Health Evaluation 01/14/1960 Shingrix-Zoster Vaccine (1 of 2) 1961 Fall Risk Assessment 2007 Osteoporosis Screening (DEXA Scan) 2007 RSV Adult > 60+ Yrs or (1 - 1-dose 75+ series) 2017 DTap / Tdap / Td (2 - Td or Tdap) 11/20/2022 11/20/2012 COVID-19 Vaccine ( season) 2024 07/22/2021, 12/01/2020, 11/02/2020 Influenza Vaccine (#1) 2024 , 07/22/2021, 08/03/2020, Additional history exists Pneumococcal Vaccine Completed 03/10/2015, 08/11/2009, 08/03/2005 Hepatitis B Vaccines Aged Out No long er eligible based on patient's age to complete this topic RSV Ped < 20 months Aged Out No longe r eligible based on patient's age to complete this topic Care Teams Medical Intern Relationship Specialty Start Date End Date Hawa Fish MD PCP - General Internal Medicine 10/28/20
--- OUTSIDE RECORDS SUMMARY | 2024-11-04 13:51 | XMS_ITS | Encounter Summary ---
Author Organization [facility] Address [address] [place] [address] Care Team Providers Care General Accounting Manager Name Role Phone Taya Gonzales MD Unavailable [phone] Chandan Breen Unavailable Hawa Torres MD Primary Care Provider Unavaila Hawa Maddox MD Primary Care Provider Unavaila ble [facility], Pcp Primary Care Provider UnavailHawa Barron MD Primary Care Provider Unavaila ble [facility], Pcp Primary Care Provider UnavailHawa Barron MD Primary Care Provider Unavaila ble Melonie Sorensen DO Primary Care Pro vider Unavailable [facility], Pcp Primary Care Provider UnavailHawa Barron MD Primary Care Provider Unavaila ble Jessi Erwin [facility] Unavailable [phone] Encounter Details Date Type Department Care Team Description 04/19/2021 Orders Only Pulmonology - [place] [address] [facility] [address] [place] [address] Kavin Sprague MD [address] [facility] [address] [place] [address] Shortness of breath; Obstructive sleep apnea; Pulmonary embolism, other, unspecified chronicity, unspecified whether acute cor pulmonale present (HCC); Chronic systolic heart failure (HCC) Social History Tobacco Use Types Packs/Day Years [...] have Coronavirus / COVID-19? No / Unsure 04/21/2021 10:05 AM EDT documented as of this encounter Progress Notes * Moraima Crandall R.N. - 04/19/2021 3:[address] Gordon no longer with practice. Sent to wes [place]. documented in this encounter Plan of Treatment Not on file documented as of this encounter Procedures Procedure Name Priority Date/Time Associated Diagnosis Comments AR NONINVASIVE EAR/PULSE OXIMETRY OVERNIGHT MONITOR Routine 04/11/2021 Shortness of breath Obstructive sleep apnea Pulmonary embolism, other, unspecified chronicity, unspecified whether acute cor pulmonale present (HCC) Chronic systolic heart failure (HCC) documented in this encounter Results * OXIMETRY,OVERNITE (04/11/2021) Kavin Sprague MD PERFORMABL ES documented in this encounter Visit Diagnoses Diagnosis Shortness of breath Obstructive sleep apnea Obstructive sleep apnea (adult) (pediatric) Pulmonary embolism, other, unspecified chronicity, unspecified whether acute cor pulmonale present (HCC) Chronic systolic heart failure (HCC) Chronic systolic heart failure documented in this encounter Care Teams General Accounting Manager Relationship Specialty Start Date End Date Hawa Torres MD PCP - General Internal Medicine 04/13/21 06/05/21 Hawa Torres MD PCP - General Internal Medicine 06/06/21 08/07/21 [facility], Pcp PCP - General Internal Medicine 08/08/21 10/27/21 Hawa Torres MD PCP - General Internal Medicine 10/28/21 04/11/22 [facility] Pcp PCP - General Internal Medicine 04/12/22 05/01/22 Hawa Torres MD PCP - General Internal Medicine 05/02/22 05/21/22 Melonie Sorensen DO PCP - General Internal Medicine 05/22/22 09/07/22 [facility], Pcp PCP - General Internal Medicine 09/08/22 11/08/22 Hawa Torres MD PCP - General Internal Medicine 11/09/22 Taya Gonzales MD Specialist Cardiology 11/01/20 Chandan Breen PA Specialist Cardiology 11/01/20 02/20/24 Jessi Erwin DNP Specialist Nurse Practitioner Family 02/21/24 documented as of this encounter
--- OUTSIDE RECORDS SUMMARY | 2024-11-04 13:51 | XMS_ITS | Encounter Summary ---
Author Organization [facility] Address [address] [place] [address] Care Team Providers Care Cone Winder Name Role Phone Hawa Torres MD Primary Care Provider UnavailTaya Lira MD Unavailable [phone] Chandan Breen Unavailable Rancho Matthews MD Primary Care Provider [phone] [facility], Pcp Primary Care Provider UnavailRancho Brock MD Primary Care Provider [phone] Hawa Torres MD Primary Care Provider Unavaila Hawa Maddox MD Primary Care Provider Unavaila elpidio [facility], Pcp Primary Care Provider UnavailHawa Barron MD Primary Care Provider Unavaila ble [facility], Pcp Primary Care Provider Hawa Zavala MD Primary Care Provider Unavaila Melonie Rojas DO Primary Care Pro vider Unavailable [facility], Pcp Primary Care Provider Hawa Zavala MD Primary Care Provider Unavaila Jessi Cagle [facility] Unavailable [phone] Encounter Details Date Type Department Care Team Description 12/29/2017 Hospital Medical Records [address] [place] [address] Rohit Dallas [address] [place] [address] [id number] Social History Tobacco Use Types Packs/Day Years [...] on filedocumented in this encounter Care Teams Cone Winder Relationship Specialty Start Date End Date Hawa Torres MD PCP - General Internal Medicine 09/09/15 12/19/20 Rancho Matthews MD [address] [place] [address] PCP - General Internal Medicine 12/20/20 03/22/21 [facility], Pcp [address] [place], [place] [phone] PCP - General Internal Medicine 03/23/21 04/11/21 Rancho Matthews MD [address] [place] [address] PCP - General Internal Medicine 04/12/21 04/12/21 Hawa Torres MD [address] [place] [address] 41764 PCP - General Internal Medicine 04/13/21 06/05/21 Hawa Torres MD [address] [place] [address]252 PCP - General Internal Medicine 06/06/21 08/07/21 [facility], Pcp [address] [place] [address] 41653 PCP - General Internal Medicine 08/08/21 10/27/21 Hawa Torres MD PCP - General Internal Medicine 10/28/21 04/11/22 [facility], Pcp [address] [place] [address] 49424 PCP - General Internal Medicine 04/12/22 05/01/22 Hawa Torres MD [address] [place] [address] 82738 PCP - General Internal Medicine 05/02/22 05/21/22 Melonie Sorensen DO [address] [place] [address] 75667 PCP - General Internal Medicine 05/22/22 09/07/22 [facility], [address] [address] PCP - General Internal Medicine 09/08/22 11/08/22 Hawa Torres MD [address] [place] [address]62 PCP - General Internal Medicine 11/09/22 Taya Gonzales MD Specialist Cardiology 11/01/20 Chandan Breen PA Specialist Cardiology 11/01/20 02/20/24 Jessi Erwin DNP [address] [place] [address] Specialist Nurse Practitioner [facility] 02/21/24 documented as of this encounter
--- OUTSIDE RECORDS SUMMARY | 2024-11-04 13:51 | XMS_ITS | Encounter Summary ---
Author Organization [facility] Address [address] [place] [address] Care Team Providers Care Silk Screen Printing Racker Name Role Phone Taya Gonzales MD Unavailable [phone] Hawa Torres MD Primary Care Provider Unavaila Jessi Cagle DNP Unavailable [phone] Reason for Visit * Reason Comments E-prescribe Rx Request Encounter Details Date Type Department Care Team Description 05/11/2024 Refill Endocrinology - [address] [address] Lucille Clarke PA-C [address] [place] [id number] E-prescribe Rx Request Social History Tobacco Use [...] encounter Miscellaneous Notes * Telephone Encounter - Bette Cabello M.A. - 05/12/2024 10:29 AM EDT JANUARY 12/19 F/u 05/23 Lab Results Component Value Date HGBA1C 7.7 05/11/2022 MALBUR 437.0 11/11/2021 MALBCR 1409.6 11/11/2021 CHOL 138 06/25/2020 LDL 54 06/25/2020 HDL 55 06/25/2020 TRIG 145 06/25/2020 GLU 205 05/11/2022 CREAT 2.54 05/11/2022 documented in this encounter Plan of Treatment Not on file documented as of this encounter Visit Diagnoses Diagnosis Uncontrolled type 2 diabetes mellitus with hypoglycemia without coma (HCC) documented in this encounter Care Teams Silk Screen Printing Racker Relationship Specialty Start Date End Date Hawa Torres MD PCP - General Internal Medicine 11/09/22 Taya Gonzales MD Specialist Cardiology 11/01/20 Jessi Erwin DNP Specialist Nurse Practitioner Family 02/21/24 documented as of this encounter
--- OUTSIDE RECORDS SUMMARY | 2024-11-04 13:51 | XMS_ITS | Encounter Summary ---
Author Organization [facility] Address [address] [place] [address] Care Team Providers Care Workplace Relations Adviser Name Role Phone Hawa Torres MD Primary [...] Jessi Cagle [facility] Unavailable [phone] Encounter Details Date Type Department Care Team Description 04/14/2017 Hospital Medical Records [address] [place] [address] Francisco Hickman Social History Tobacco Use Types Packs/Day Years [...] on filedocumented in this encounter Care Teams Workplace Relations Adviser Relationship Specialty Start Date End Date Hawa Torres MD PCP - General Internal Medicine 09/09/15 12/19/20 Rancho Matthews MD [address] [place] [address] PCP - General Internal Medicine 12/20/20 03/22/21 [facility]cp [address] [place] [address]679 PCP - General Internal Medicine 03/23/21 04/11/21 Rancho Matthews MD [address] [place] [address]33 PCP - General Internal Medicine 04/12/21 04/12/21 Hawa Torres MD [address] [place] [address]80 PCP - General Internal Medicine 04/13/21 06/05/21 Hawa Torres MD [address] [place] [address]474 PCP - General Internal Medicine 06/06/21 08/07/21 [facility] Pcp [address] [place] [address] 7[address]82 PCP - General Internal Medicine 08/08/21 10/27/21 Hawa Torres MD PCP - General Internal Medicine 10/28/21 04/11/22 [facility] Pcp [address] [place] [address] 34085 PCP - General Internal Medicine 04/12/22 05/01/22 Hawa Torres MD [address] [place] [address] 75131 PCP - General Internal Medicine 05/02/22 05/21/22 Melonie Sorensen DO [address] [place] [address] 52646 PCP - General Internal Medicine 05/22/22 09/07/22 [facility] Pcp [address] [place] [address] 60149 PCP - General Internal Medicine 09/08/22 11/08/22 Hawa Torres MD [address] [place], [place] [phone] PCP - General Internal Medicine 11/09/22 Taya Gonzales MD Specialist Cardiology 11/01/20 Chandan Breen PA Specialist Cardiology 11/01/20 02/20/24 Jessi Erwin, KITTY [address] [place] [address] Specialist Nurse Practitioner [facility] 02/21/24 documented as of this encounter
--- OUTSIDE RECORDS SUMMARY | 2024-11-04 13:51 | XMS_ITS | Encounter Summary ---
Author Organization [facility] Address [address] [place] [address] Care Team Providers Care Dredge Engineer Name Role Phone Lul Lou MD Primary Care Provider Unavailab Salomón Cummings MD Primary Care Provider Unavail able Hawa Torres MD Primary Care Provider Unavaila Hawa Maddox MD Primary Care Provider Unavaila Taya Covington MD Unavailable [phone] Chandan Breen Unavailable Rancho Matthews MD Primary Care Provider [phone] [facility], Pcp Primary Care Provider UnavailRancho Brock MD Primary Care Provider [phone] Hawa Torres MD Primary Care Provider Unavaila Hawa Maddox MD Primary Care Provider Unavaila ble [facility], Pcp Primary Care Provider UnavailHawa Barron MD Primary Care Provider Unavaila ble [facility], Pcp Primary Care Provider UnavailHawa Barron MD Primary Care Provider Unavaila ble Melonie Sorensen DO Primary Care Pro vider Unavailable [facility], Pcp Primary Care Provider UnavailHawa Barron MD Primary Care Provider Unavaila ble Jessi Erwin DNP Unavailable [phone] Encounter Details Date Type Department Care Team Description 08/05/2012 Inspector Automatic Typewriter Report Medical Records [address] [place] [address] Danielle May Social History Tobacco Use Types Packs/Day Years [...] on filedocumented in this encounter Care Teams Dredge Engineer Relationship Specialty Start Date End Date Lul Lou MD PCP - General Internal Medicine 05/16/12 06/06/14 Salomón Lou MD PCP - General Internal Medicine 09/01/14 09/08/15 Hawa Torres MD PCP - General Internal Medicine 09/09/15 12/19/20 Hawa Trores MD PCP - General 06/07/14 08/31/14 Rancho Matthews MD [address] [place] [address]93 PCP - General Internal Medicine 12/20/20 03/22/21 [facility], [address] [address] PCP - General Internal Medicine 03/23/21 04/11/21 Rancho Matthews MD [address] [place] [address] 97140 PCP - General Internal Medicine 04/12/21 04/12/21 Hawa Torres MD [address] [place] [address] 65408 PCP - General Internal Medicine 04/13/21 06/05/21 Hawa Torres MD [address] [place] [address] 90309 PCP - General Internal Medicine 06/06/21 08/07/21 [facility], [address] [address] PCP - General Internal Medicine 08/08/21 10/27/21 Hawa Torres MD PCP - General Internal Medicine 10/28/21 04/11/22 [facility], Pcp [address] [place] [address] 09698 PCP - General Internal Medicine 04/12/22 05/01/22 Hawa Torres MD [address] [place] [address] 96395 PCP - General Internal Medicine 05/02/22 05/21/22 Melonie Sorensen, [address] [place] [address] 9[address]20 PCP - General Internal Medicine 05/22/22 09/07/22 [facility], Pcp [address] [place] [address] 34500 PCP - General Internal Medicine 09/08/22 11/08/22 Hawa Torres MD [address] [place] [address] 91174 PCP - General Internal Medicine 11/09/22 Taya Gonzales MD Specialist Cardiology 11/01/20 Chandan Breen PA Specialist Cardiology 11/01/20 02/20/24 Jessi Erwin DNP [address] [place] [address]77 Specialist Nurse Practitioner [facility] 02/21/24 documented as of this encounter
--- OUTSIDE RECORDS SUMMARY | 2024-11-04 13:51 | XMS_ITS | Encounter Summary ---
Author Organization [facility] Address [address] [place] [address] Care Team Providers Care Rn Cvor Name Role Phone Taya Gonzales MD Unavailable [phone] Chandan Breen Unavailable Hawa Torres MD Primary Care Provider Unavaila Jessi Cagle DNP Unavailable [phone] Reason for Visit * Reason Comments Remote Device Check Device At [facility] Encounter Details Date Type Department Care Team Description 10/18/2023 Remote Device Check Cardio PVC POC 154 [address] [facility] [address] [place] [address] Nikhil Sorenson MD [address] [place] [address] [phone] Social History Tobacco Use Types Packs/Day Years [...] filedocumented in this encounter Care Teams Rn Cvor Relationship Specialty Start Date End Date Hawa Torres MD PCP - General Internal Medicine 11/09/22 Taya Gonzales MD Specialist Cardiology 11/01/20 Chandan Breen PA Specialist Cardiology 11/01/20 02/20/24 Jessi Erwin DNP Specialist Nurse Practitioner Family 02/21/24 documented as of this encounter
--- OUTSIDE RECORDS SUMMARY | 2024-11-04 13:51 | XMS_ITS | Encounter Summary ---
Author Organization [facility] Address [address] [place] [address] Care Team Providers Care Coal Bagger Name Role Phone Hawa Torres MD Primary Care Provider UnavailTaya Lira MD Unavailable + Chandan Breen Unavailable + Rancho Matthews MD Primary Care Provider + [facility], Pcp Primary Care Provider UnavailRancho Brock MD Primary Care Provider + Hawa Torres MD Primary Care Provider Unavaila Hawa Maddox MD Primary Care Provider Unavaila elpidio [facility], Pcp Primary Care Provider UnavailHawa Barron MD Primary Care Provider Unavaila ble [facility], Pcp Primary Care Provider Hawa Zavala MD Primary Care Provider Unavaila Melonie Rojas DO Primary Care Pro vider Unavailable [facility], Pcp Primary Care Provider Hawa Zavala MD Primary Care Provider Unavaila Jessi Cagle [facility] Unavailable + Encounter Details Date Type Department Care Team Description 05/06/2020 Medical Or Surgical Instrument Maker Report Medical Records [address] [place] [address] Taya Gonzales MD [address] [place] [address] [phone] Social History Tobacco Use Types Packs/Day Years [...] on filedocumented in this encounter Care Teams Coal Bagger Relationship Specialty Start Date End Date Hawa Torres MD PCP - General Internal Medicine 09/09/15 12/19/20 Rancho Matthews MD [address] [place] [address] PCP - General Internal Medicine 12/20/20 03/22/21 [facility], Pcp [address] [place] [address] PCP - General Internal Medicine 03/23/21 04/11/21 Rancho Matthews MD [address] [place] [address]000 PCP - General Internal Medicine 04/12/21 04/12/21 Hawa Torres MD [address] [place] [address]2393 PCP - General Internal Medicine 04/13/21 06/05/21 Hawa Torres MD [address] [place] [address]37 PCP - General Internal Medicine 06/06/21 08/07/21 [facility], Pcp [address] [place], [place] [address] [place] [address] PCP - General Internal Medicine 08/08/21 10/27/21 Hawa Torres MD PCP - General Internal Medicine 10/28/21 04/11/22 [facility], Pcp [address] [place] [address]19 PCP - General Internal Medicine 04/12/22 05/01/22 Hawa Torres MD [address] [place] [address] PCP - General Internal Medicine 05/02/22 05/21/22 Melonie Sorensen DO [address] [place] [address]149 PCP - General Internal Medicine 05/22/22 09/07/22 [facility], [address] [address] PCP - General Internal Medicine 09/08/22 11/08/22 Hawa Torres MD [address] [place] [address] PCP - General Internal Medicine 11/09/22 Taya Gonzales MD Specialist Cardiology 11/01/20 Chandan Breen PA Specialist Cardiology 11/01/20 02/20/24 Jessi Erwin DNP [address] [place] [address] Specialist Nurse Practitioner [facility] 02/21/24 documented as of this encounter
--- OUTSIDE RECORDS SUMMARY | 2024-11-04 13:51 | XMS_ITS | Encounter Summary ---
Author Organization [facility] Address [address] [place] [address] Care Team Providers Care Steam Meter Reader Name Role Phone Hawa Torres MD Primary Care Provider UnavailTaya Lira MD Unavailable [phone] Chandan Breen Unavailable + Rancho Matthews MD Primary Care Provider + [facility], [facility] Primary Care Provider UnavailRancho Brock MD Primary Care Provider + Hawa Torres MD Primary Care Provider Unavaila Hawa Maddox MD Primary Care Provider Unavaila elpidio [facility], Pcp Primary Care Provider Hawa Zavala MD Primary Care Provider Unavaila ble [facility], Pcp Primary Care Provider Hawa Zavala MD Primary Care Provider Unavaila Melonie Rojas DO Primary Care Pro vider Unavailable [facility], Pcp Primary Care Provider Hawa Zavala MD Primary Care Provider Unavaila Jessi Cagle [facility] Unavailable + [phone] Encounter Details Date Type Department Care Team Description 11/23/2020 Hospital Medical Records [address] [place], [place] [id number] [place] [address] Social History Tobacco Use Types Packs/Day Years [...] Name Priority Date/Time Associated Diagnosis Comments OUTSIDE ECHO Routine 11/24/2020 OUTSIDE VASCULAR STUDY Routine 11/23/2020 documented in this encounter Results * OUTSIDE ECHO (11/24/2020) Provider Abstract CARDIOLOGY * OUTSIDE VASCULAR STUDY (11/23/2020) Provider Abstract CARDIOLOGY documented in this encounter Visit Diagnoses Not on filedocumented in this encounter Care Teams Steam Meter Reader Relationship Specialty Start Date End Date Hawa Torres MD PCP - General Internal Medicine 09/09/15 12/19/20 Rancho Matthews MD [address] [place] [address] PCP - General Internal Medicine 12/20/20 03/22/[address] [address] PCP - General Internal Medicine 03/23/21 04/11/21 Rancho Matthews MD [address] [place] [address] PCP - General Internal Medicine 04/12/21 04/12/21 Hawa Torres MD [address] [place] [address] 19846 PCP - General Internal Medicine 04/13/21 06/05/21 Hawa Torres MD [address] [place] [address] 8[address]66 PCP - General Internal Medicine 06/06/21 08/07/21 [facility], Pcp [address] [place] [address] PCP - General Internal Medicine 08/08/21 10/27/21 Hawa Torres MD PCP - General Internal Medicine 10/28/21 04/11/22 [facility], Pcp [address] [place] [address] 9[address]16 PCP - General Internal Medicine 04/12/22 05/01/22 Hawa Torres MD [address] [place] [address] 0[address]12 PCP - General Internal Medicine 05/02/22 05/21/22 Melonie Sorensen DO [address] [place] [address]10 PCP - General Internal Medicine 05/22/22 09/07/22 [facility], Pcp [address] [place] [address]18 PCP - General Internal Medicine 09/08/22 11/08/22 Hawa Torres MD [address] [place] [address] 7[address]11 PCP - General Internal Medicine 11/09/22 Taya Gonzales MD Specialist Cardiology 11/01/20 Chandan Breen PA Specialist Cardiology 11/01/20 02/20/24 Jessi Erwin DNP [address] [place] [address] Specialist Nurse Practitioner [facility] 02/21/24 documented as of this encounter
--- OUTSIDE RECORDS SUMMARY | 2024-11-04 13:51 | XMS_ITS | Encounter Summary ---
Author Organization [facility] Address [address] [place] [address] Care Team Providers Care Practicing Dermatologist Name Role Phone Taya Gonzales MD Unavailable [phone] Chandan Breen Unavailable Community, Pcp Primary Care Provider UnavailHawa Barron MD Primary Care Provider UnavailJessi Hogan DNP Unavailable [phone] Reason for Visit * Reason Onset Date Comments Shortness Of Breath 10/16/2022 sob Encounter Details Date Type Department Care Team Description 10/16/2022 Telephone Cardio PVC POC [address] [facility] [facility] [address] [place] [address] Ramya Alicia, BOTTOM PRESSER [address] [facility] [address] [place] [id number] Shortness Of Breath (sob) Social History Tobacco Use Types Packs/Day Years [...] suspected to have Coronavirus/COVID-19? No / Unsure 10/16/2022 3:26 PM EST documented as of this encounter Miscellaneous Notes * Telephone Encounter - Aramis Lea RN - 10/16/2022 11:46 AM EST Called pt's daughter again this PM, made aware that per recommendations we would like to get some BP readings from HD to share at the next OV so it can be decided how to proceed with pt's meds. Is aware and will record and have BP trends before during and after dialysis. Is aware we are letting scheduling know to book an earlier apt for a f/u if available. * Telephone Encounter - Debbie Angel PA-C - 10/16/2022 11:37 AM EST Will forward to access to see if they can find a sooner appt. I think it would be helpful when she goes to HD if she can get some BP readings to share at the appt so it can be decided how to proceed with her meds * Telephone Encounter - Aramis Lea RN - 10/16/2022 11:27 AM EST Patient's daughter asking for a sooner apt. States has not been on any cardiac medications and has not been seen since her hospital visit in early August. Has f/u with ENP but not until 11/09/22. Is aware of recommendation to f/u with ticket agent. States will contact them and let them know what is going on. * Telephone Encounter - Debbie Angel PA-C - 10/16/2022 11:16 AM EST I suspect it may be most appropriate for her to discuss with her ticket agent as if she is having heart failure, dialysis would be the most effective way to remove the fluid and help her breathe better (most patients dont make enough urine to warrant diuretics). She needs to be very cautious with her sodium intake. * Telephone Encounter - Ritika Chi RN - 10/16/2022 9:30 AM EST Pt dtr Madelin (on contact list) states pt has increase SOB with exertion over the past week. Saw pulmonary 10/10/22, see encounter. O2 level 94% on 1 LNC, without it 88%. BP 140-160's. Weight fluctuates 148-149 prior to dialysis and 146 after. Slight ankle edema, hard legs. Wears compression stockings all day. LSD tries her best.SOB with exertion did get better after dialysis but not getting better past week. Dtr is concerned with SOB and pt states she feels like she is not getting enough air. Med list was reviewed with dtr and updated. She stated [facility] stopped all pt cardiac meds (see dc encounter 08/29/22)and PCP restarted Carvedilol at a low dose until pt sees cardiology. NEXT OV ENP 11/09/22 * Telephone Encounter - Janae Tevin - 10/16/2022 8:55 AM EST Zeina called from [facility] Home health [phone].. She spoke with Pt`s daughter Madelin at [phone]. Dana has had increased SOB. Oxygen level 88% BP is getting on the High side. 159/95. She does have Dialysis in Sunday, Sunday and Eleuterio , From 5 am to 7 AM .Dana has also had an Chest x-ray . Please call Madelin . Dana does have a Hospital follow up appointment on 11/09/2022 Amandeep documented in this encounter Plan of Treatment Not on file documented as of this encounter Visit Diagnoses Not on filedocumented in this encounter Care Teams Practicing Dermatologist Relationship Specialty Start Date End Date [facility], Pcp PCP - General Internal Medicine 09/08/22 11/08/22 Hawa Torres MD PCP - General Internal Medicine 11/09/22 Taya Gonzales MD Specialist Cardiology 11/01/20 Chandan Breen PA Specialist Cardiology 11/01/20 02/20/24 Jessi Erwin DNP Specialist Nurse Practitioner Family 02/21/24 documented as of this encounter
--- OUTSIDE RECORDS SUMMARY | 2024-11-04 13:51 | XMS_ITS | Encounter Summary ---
Author Organization [facility] Address [address] [place] [address] Care Team Providers Care Clay Washer Name Role Phone Lul Lou MD Primary Care Provider Unavailab Salomón Cummings MD Primary Care Provider Unavail able Hawa Torres MD Primary Care Provider Unavaila Hawa Maddox MD Primary Care Provider Unavaila Taya Covington MD Unavailable [phone] Chandan Breen Unavailable Rancho Matthews MD Primary Care Provider [phone] [facility], Pcp Primary Care Provider UnavailRancho Brock MD Primary Care Provider [phone] Hawa Torres MD Primary Care Provider Unavaila Hawa Maddox MD Primary Care Provider Unavaila ble [facility], Pcp Primary Care Provider UnavailHawa Barron MD Primary Care Provider Unavaila ble [facility], Pcp Primary Care Provider UnavailHawa Barron MD Primary Care Provider Unavaila ble Melonie Sorensen DO Primary Care Pro vider Unavailable Community, Pcp Primary Care Provider UnavailHawa Barron MD Primary Care Provider Unavaila ble Jessi Erwin DNP Unavailable [phone] Encounter Details Date Type Department Care Team Description 10/10/2012 Transfer Records Medical Records [address] [place] [id number] Abstract, Provider Social History Tobacco Use Types [...] on filedocumented in this encounter Care Teams Clay Washer Relationship Specialty Start Date End Date Lul Lou MD PCP - General Internal Medicine 05/16/12 06/06/14 Salomón Lou MD PCP - General Internal Medicine 09/01/14 09/08/15 Hawa Torres MD PCP - General Internal Medicine 09/09/15 12/19/20 Hawa Torres MD PCP - General 06/07/14 08/31/14 Rancho Matthews MD [address] [place], [place] [phone] PCP - General Internal Medicine 12/20/20 03/22/21 [facility], [address] [address] PCP - General Internal Medicine 03/23/21 04/11/21 Rancho Matthews MD [address] [place] [address] PCP - General Internal Medicine 04/12/21 04/12/21 Hawa Torres MD [address] [place] [address]014 PCP - General Internal Medicine 04/13/21 06/05/21 Hawa Torres MD [address] [place] [address]37 PCP - General Internal Medicine 06/06/21 08/07/21 [facility], [address] [address] PCP - General Internal Medicine 08/08/21 10/27/21 Hawa Torres MD PCP - General Internal Medicine 10/28/21 04/11/22 [facility], Pcp [address] [place] [address] PCP - General Internal Medicine 04/12/22 05/01/22 Hawa Torres MD [address] [place] [address] PCP - General Internal Medicine 05/02/22 05/21/22 Melonie Sorensen DO [address] [place] [address] PCP - General Internal Medicine 05/22/22 09/07/22 [facility], Pcp [address] [place] [address] PCP - General Internal Medicine 09/08/22 11/08/22 Hawa Torres MD [address] [place] [address]92 PCP - General Internal Medicine 11/09/22 Taya Gonzales MD Specialist Cardiology 11/01/20 Chandan Breen PA Specialist Cardiology 11/01/20 02/20/24 Jessi Erwin, KITTY [address] [place] [address] Specialist Nurse Practitioner [facility] 02/21/24 documented as of this encounter
--- OUTSIDE RECORDS SUMMARY | 2024-11-04 13:51 | XMS_ITS | Encounter Summary ---
Author Organization [facility] Address [address] [place] [address] Care Team Providers Care Foreign Service Officer Name Role Phone Hawa Torres MD Primary Care Provider Unavaila Taya Covington MD Unavailable [phone] Chandan Breen Unavailable Rancho Matthews MD Primary Care Provider [phone] [facility], [facility] Primary Care Provider UnavailRancho Brock MD Primary Care Provider [phone] Hawa Torres MD Primary Care Provider Unavaila Hawa Maddox MD Primary Care Provider Unavaila elpidio [facility], Pcp Primary Care Provider UnavailHawa Barron MD Primary Care Provider Unavaila ble [facility], Pcp Primary Care Provider Hawa Zavala MD Primary Care Provider Unavaila Melonie Rojas DO Primary Care Pro vider Unavailable [facility], Pcp Primary Care Provider Hawa Zavala MD Primary Care Provider Unavaila Jessi Cagle [facility] Unavailable + Reason for Visit * Reason Onset Date Comments Abnormal Mammogram 09/03/2020 Encounter Details Date Type Department Care Team Description 09/03/2020 Telephone Radiology - [place] [address] [place] [address] [id number] Radiology, Authorizing Abnormal Mammogram Social History Tobacco Use Types Packs/Day Years [...] have Coronavirus / COVID-19? No / Unsure 09/06/2020 2:18 PM EST documented as of this encounter Miscellaneous Notes * Telephone Encounter - Kaylee Bridges - 09/03/2020 2:44 PM EST Called daughter Madelin and scheduled pt for add view mammo for 09/06/20 nc documented in this encounter Plan of Treatment Not on file documented as of this encounter Visit Diagnoses Not on filedocumented in this encounter Care Teams Foreign Service Officer Relationship Specialty Start Date End Date Hawa Torres MD PCP - General Internal Medicine 09/09/15 12/19/20 Rancho Matthews MD [address] [place] [address] PCP - General Internal Medicine 12/20/20 03/22/21 [facility], [address] [address] PCP - General Internal Medicine 03/23/21 04/11/21 Rancho Matthews MD [address] [place] [address] 33935 PCP - General Internal Medicine 04/12/21 04/12/21 Hawa Torres MD [address] [place] [address]444 PCP - General Internal Medicine 04/13/21 06/05/21 Hawa Torres MD [address] [place] [address] 82043 PCP - General Internal Medicine 06/06/21 08/07/21 [facility], Pcp [address] [place] [address]23 PCP - General Internal Medicine 08/08/21 10/27/21 Hawa Torres MD PCP - General Internal Medicine 10/28/21 04/11/22 [facility], Pcp [address] [place] [address] 51349 PCP - General Internal Medicine 04/12/22 05/01/22 Hawa Torres MD [address] [place] [address] PCP - General Internal Medicine 05/02/22 05/21/22 Melonie Sorensen, [address] [place] [address] 20002 PCP - General Internal Medicine 05/22/22 09/07/22 [facility], Pcp [address] [place] [address]66 PCP - General Internal Medicine 09/08/22 11/08/22 Hawa Torres MD [address] [place] [address] 8[address]41 PCP - General Internal Medicine 11/09/22 Taya Gonzales MD Specialist Cardiology 11/01/20 Chandan Breen PA Specialist Cardiology 11/01/20 02/20/24 Jessi Erwin DNP [address] [place] [address] Specialist Nurse Practitioner [facility] 02/21/24 documented as of this encounter
--- OUTSIDE RECORDS SUMMARY | 2024-11-04 13:51 | XMS_ITS | Encounter Summary ---
Author Organization [facility] Address [address] [place] [address] Care Team Providers Care Skinner Pelts Name Role Phone Hawa Torres MD Primary Care Provider UnavailTaya Lira MD Unavailable [phone] Chandan Breen Unavailable Rancho Matthews MD Primary Care Provider + [facility], [facility] Primary Care Provider UnavailRancho Brock MD Primary Care Provider [phone] Hawa Torres MD Primary Care Provider Unavaila Hawa Maddox MD Primary Care Provider Unavaila elpidio [facility], Pcp Primary Care Provider UnavailHawa Barron MD Primary Care Provider Unavaila ble [facility], Pcp Primary Care Provider Hawa Zavala MD Primary Care Provider Unavaila Melonie Rojas DO Primary Care Pro vider Unavailable [facility], Pcp Primary Care Provider Hawa Zavala MD Primary Care Provider Unavaila Jessi Cagle [facility] Unavailable [phone] Encounter Details Date Type Department Care Team Description 01/17/2018 Hospital Medical Records [address] [place] [address] Social History Tobacco Use Types Packs/Day Years [...] on filedocumented in this encounter Care Teams Skinner Pelts Relationship Specialty Start Date End Date Hawa Torres MD PCP - General Internal Medicine 09/09/15 12/19/20 Rancho Matthews MD [address] [place] [address] PCP - General Internal Medicine 12/20/20 03/22/21 [facility], Pcp [address] [place] [address]86 PCP - General Internal Medicine 03/23/21 04/11/21 Rancho Matthews MD [address] [place] [address] 60501 PCP - General Internal Medicine 04/12/21 04/12/21 Hawa Torres MD [address] [place] [address] 47916 PCP - General Internal Medicine 04/13/21 06/05/21 Hawa Torres MD [address] [place] [address] PCP - General Internal Medicine 06/06/21 08/07/21 [facility], Pcp [address] [place] [address] 61903 PCP - General Internal Medicine 08/08/21 10/27/21 Hawa Torres MD PCP - General Internal Medicine 10/28/21 04/11/22 [facility], Pcp [address] [place] [address] 89202 PCP - General Internal Medicine 04/12/22 05/01/22 Hawa Torres MD [address] [place] [address]10 PCP - General Internal Medicine 05/02/22 05/21/22 Melonie Sorensen DO [address] [place] [address] 63477 PCP - General Internal Medicine 05/22/22 09/07/22 [facility], Pcp [address] [place] [address] PCP - General Internal Medicine 09/08/22 11/08/22 Hawa Torres MD [address] [place] [address]259 PCP - General Internal Medicine 11/09/22 Taya Gonzales MD Specialist Cardiology 11/01/20 Chandan Breen PA Specialist Cardiology 11/01/20 02/20/24 Jessi Erwin, KITTY [address] [place] [address] Specialist Nurse Practitioner Family 02/21/24 documented as of this encounter
--- OUTSIDE RECORDS SUMMARY | 2024-11-04 13:51 | XMS_ITS | Encounter Summary ---
Author Organization [facility] Address [address] [place] [address] Care Team Providers Care Regional Psychiatric Director Name Role Phone Taya Gonzales MD Unavailable [phone] Chandan Breen Unavailable Community, Pcp Primary Care Provider Hawa Zavala MD Primary Care Provider UnavailJessi Hogan DNP Unavailable [phone] Encounter Details Date Type Department Care Team Description 09/13/2022 [facility] Medical Records [address] [place] [address] Abstract, Provider Social History Tobacco Use Types [...] Associated Diagnosis Comments OUTSIDE VASCULAR STUDY Routine 09/13/2022 documented in this encounter Results * OUTSIDE VASCULAR STUDY (09/13/2022) Provider Abstract CARDIOLOGY documented in this encounter Visit Diagnoses Not on filedocumented in this encounter Care Teams Regional Psychiatric Director Relationship Specialty Start Date End Date Community, Pcp PCP - General Internal Medicine 09/08/22 11/08/22 Hawa Torres MD PCP - General Internal Medicine 11/09/22 Taya Gonzales MD Specialist Cardiology 11/01/20 Chandan Breen PA Specialist Cardiology 11/01/20 02/20/24 Jessi Erwin DNP Specialist Nurse Practitioner [facility] 02/21/24 documented as of this encounter
--- OUTSIDE RECORDS SUMMARY | 2024-11-04 13:51 | XMS_ITS | Encounter Summary ---
Author Organization [facility] Address [address] [place] [address] Care Team Providers Care Social And Human Services Assistant Name Role Phone Hawa Torres MD Primary Care Provider UnavailTaya Lira MD Unavailable + Chandan Breen Unavailable + Rancho Matthews MD Primary Care Provider + [facility], [facility] Primary Care Provider UnavailRancho Brock MD Primary Care Provider + Hawa Torres MD Primary Care Provider Unavaila Hawa Maddox MD Primary Care Provider Unavaila elpidio [facility], Pcp Primary Care Provider UnavailHawa Barron MD Primary Care Provider Unavaila ble [facility], Pcp Primary Care Provider Hawa Zavala MD Primary Care Provider Unavaila Melonie Rojas DO Primary Care Pro vider Unavailable [facility], Pcp Primary Care Provider Hawa Zavala MD Primary Care Provider Unavaila Jessi Cagle [facility] Unavailable + Encounter Details Date Type Department Care Team Description 12/22/2016 Hospital Medical Records [address] [place] [address] Social History Tobacco Use Types Packs/Day Years [...] on filedocumented in this encounter Care Teams Social And Human Services Assistant Relationship Specialty Start Date End Date Hawa Torres MD PCP - General Internal Medicine 09/09/15 12/19/20 Rancho Matthews MD [address] [place] [address] PCP - General Internal Medicine 12/20/20 03/22/21 [facility], Pcp [address] [place] [address] PCP - General Internal Medicine 03/23/21 04/11/21 Rancho Matthews MD [address] [place] [address] PCP - General Internal Medicine 04/12/21 04/12/21 Hawa Torres MD [address] [place] [address] PCP - General Internal Medicine 04/13/21 06/05/21 Hawa Torres MD [address] [place] [address] 6[address] PCP - General Internal Medicine 06/06/21 08/07/21 [facility], Pcp [address] [place] [address] 31678 PCP - General Internal Medicine 08/08/21 10/27/21 Hawa Torres MD PCP - General Internal Medicine 10/28/21 04/11/22 [facility], Pcp [address] [place] [address] 13816 PCP - General Internal Medicine 04/12/22 05/01/22 Hawa Torres MD [address] [place] [address] PCP - General Internal Medicine 05/02/22 05/21/22 Melonie Sorensen DO [address] [place] [address] PCP - General Internal Medicine 05/22/22 09/07/22 [facility], Pcp [address] [place] [address] PCP - General Internal Medicine 09/08/22 11/08/22 Hawa Torres MD [address] [place] [address]14 PCP - General Internal Medicine 11/09/22 Taya Gonzales MD Specialist Cardiology 11/01/20 Chandan Breen PA Specialist Cardiology 11/01/20 02/20/24 Jessi Erwin, KITTY [address] [place] [address] Specialist Nurse Practitioner Family 02/21/24 documented as of this encounter
--- OUTSIDE RECORDS SUMMARY | 2024-11-04 13:51 | XMS_ITS | Encounter Summary ---
Author Organization [facility] Address [address] [place] [address] Care Team Providers Care Equip Maint Eng Name Role Phone Hawa Torres MD Primary Care Provider Unavaila Taya Covington MD Unavailable +[phone] Chandan Breen Unavailable + Rancho Matthews MD Primary Care Provider + [facility], [facility] Primary Care Provider UnavailRancho Brock MD Primary Care Provider +[phone] Hawa Torres MD Primary Care Provider Unavaila Hawa Maddox MD Primary Care Provider Unavaila elpidio [facility], Pcp Primary Care Provider UnavailHawa Barron MD Primary Care Provider Unavaila ble [facility], Pcp Primary Care Provider Hawa Zavala MD Primary Care Provider Unavaila Melonie Rojas DO Primary Care Pro vider Unavailable [facility], Pcp Primary Care Provider Hawa Zavala MD Primary Care Provider Unavaila [facility] Unavailable + 11 Encounter Details Date Type Department Care Team Description 08/16/2020 Pt. Non Urgent Medical Question Medicine/Pediatrics - [address] [phone] Hawa Torres MD Social History Tobacco Use [...] PM EST documented as of this encounter Progress Notes * Blair Shaw M.A. - 08/16/2020 11:10 AM ESTFrom: Dana Grant To: Hawa Torres MD Sent: 08/16/2020 6:07 AM EST Subject: refill We need a new RX for the dosage, 3 times a day for the Furosmide 40 mg. She finished the ones she had for the 2 times a day and can't get a refill because it's to soon. Thank you. documented in this encounter Plan of Treatment Not on file documented as of this encounter Visit Diagnoses Not on filedocumented in this encounter Care Teams Equip Maint Eng Relationship Specialty Start Date End Date Hawa Torres MD PCP - General Internal Medicine 09/09/15 12/19/20 Rancho Matthews MD [address] [place] [address] PCP - General Internal Medicine 12/20/20 03/22/21 [facility], Pcp [address] [place] [address] 41387 PCP - General Internal Medicine 03/23/21 04/11/21 Rancho Matthews MD [address] [place] [address] 43828 PCP - General Internal Medicine 04/12/21 04/12/21 Hawa Torres MD [address] [place] [address] 92411 PCP - General Internal Medicine 04/13/21 06/05/21 Hawa Torres MD [address] [place] [address]132 PCP - General Internal Medicine 06/06/21 08/07/21 [facility], Pcp [address] [place] [address]2521 PCP - General Internal Medicine 08/08/21 10/27/21 Hawa Torres MD PCP - General Internal Medicine 10/28/21 04/11/22 [facility], Pcp [address] [place] [address] 31075 PCP - General Internal Medicine 04/12/22 05/01/22 Hawa Torres MD [address] [place] [address] 92713 PCP - General Internal Medicine 05/02/22 05/21/22 Melonie Sorensen, DO [address] [place] [address]14 PCP - General Internal Medicine 05/22/22 09/07/22 [facility], Pcp [address] [place] [address]64 PCP - General Internal Medicine 09/08/22 11/08/22 Hawa Torres MD [address] [place] [address] PCP - General Internal Medicine 11/09/22 Taya Gonzales MD Specialist Cardiology 11/01/20 Chandan Breen PA Specialist Cardiology 11/01/20 02/20/24 Jessi Erwin DNP [address] [place] [address] Specialist Nurse Practitioner Family 02/21/24 documented as of this encounter
--- OUTSIDE RECORDS SUMMARY | 2024-11-04 13:51 | XMS_ITS | Encounter Summary ---
Author Organization [facility] Address [address] [place] [address] Care Team Providers Care Music Composer Name Role Phone Hawa Torres MD Primary Care Provider UnavailTaya Lira MD Unavailable [phone] Chandan Breen Unavailable + Rancho Matthews MD Primary Care Provider [phone] [facility], Pcp Primary Care Provider UnavailRancho Brock MD Primary Care Provider +[phone] Hawa Torres MD Primary Care Provider Unavaila Hawa Maddox MD Primary Care Provider Unavaila elpidio [facility], Pcp Primary Care Provider UnavailHawa Barron MD Primary Care Provider Unavaila ble [facility], Pcp Primary Care Provider Hawa Zavala MD Primary Care Provider Unavaila ble Melonie Sorensen DO Primary Care Pro vider Unavailable [facility], Pcp Primary Care Provider Hawa Zavala MD Primary Care Provider Unavaila Jessi Cagle [facility] Unavailable + 11 Reason for Visit * Reason Onset Date Comments Remote Device Check 09/22/2020 Encounter Details Date Type Department Care Team Description 09/22/2020 Telephone Cardio PVC POC [address] [place] [address] Taya Gonzales MD [address] [place] [address] [phone] Remote Device Check Social History Tobacco Use Types Packs/Day Years [...] encounter Miscellaneous Notes * Telephone Encounter - Yelitza Rush R.N. - 09/22/2020 9:38 AM EST PJ SPoke with daughter Madelin regarding decline in thoracic impedance on SJm remote, Denies SOB, ALMA or weight gain. Fatigue at baseline. Instructed to call should she notice a change in symptoms. documented in this encounter Plan of Treatment Not on file documented as of this encounter Visit Diagnoses Not on filedocumented in this encounter Care Teams Music Composer Relationship Specialty Start Date End Date Hawa Torres MD PCP - General Internal Medicine 09/09/15 12/19/20 Rancho Matthews MD [address] [place], [place] [phone] PCP - General Internal Medicine 12/20/20 03/22/21 [facility], Pcp [address] [place] [address] PCP - General Internal Medicine 03/23/21 04/11/21 Rancho Matthews MD [address] [place] [address] 56510 PCP - General Internal Medicine 04/12/21 04/12/21 Hawa Torres MD [address] [place] [address] PCP - General Internal Medicine 04/13/21 06/05/21 Hawa Torres MD [address] [place] [address] PCP - General Internal Medicine 06/06/21 08/07/21 [facility], Pcp [address] [place] [address] 95354 PCP - General Internal Medicine 08/08/21 10/27/21 Hawa Torres MD PCP - General Internal Medicine 10/28/21 04/11/22 [facility], Pcp [address] [place] [address] 91292 PCP - General Internal Medicine 04/12/22 05/01/22 Hawa Torres MD [address] [place] [address] PCP - General Internal Medicine 05/02/22 05/21/22 Melonie Sorensen, DO [address] [place] [address] 24076 PCP - General Internal Medicine 05/22/22 09/07/22 [facility], Pcp [address] [place] [address] 16534 PCP - General Internal Medicine 09/08/22 11/08/22 Hawa Torres MD [address] [place] [address] PCP - General Internal Medicine 11/09/22 Taya Gonzales MD Specialist Cardiology 11/01/20 Chandan Breen PA Specialist Cardiology 11/01/20 02/20/24 Jessi Erwin DNP [address] [place] [address]002 Specialist Nurse Practitioner Family 02/21/24 documented as of this encounter
--- OUTSIDE RECORDS SUMMARY | 2024-11-04 13:51 | XMS_ITS | Encounter Summary ---
Author Organization [facility] Address [address] [place] [address] Care Team Providers Care Solid Glass Rod Dowel Machine Operator Name Role Phone Hawa Torres MD Primary Care Provider Unavaila Taya Covington MD Unavailable +[phone] Chandan Breen Unavailable Rancho Matthews MD Primary Care Provider + [facility], Pcp Primary Care Provider UnavailRancho Brock MD Primary Care Provider +[phone] Hawa Torres MD Primary Care Provider Unavaila Hawa Maddox MD Primary Care Provider Unavaila elpidio [facility], Pcp Primary Care Provider UnavailHawa Barron MD Primary Care Provider Unavaila ble [facility], Pcp Primary Care Provider Hawa Zavala MD Primary Care Provider Unavaila Melonie Rojas DO Primary Care Pro vider Unavailable [facility], Pcp Primary Care Provider UnavailHawa Barron MD Primary Care Provider Unavaila Jessi Cagle [facility] [place] Unavailable + Encounter Details Date Type Department Care Team Description 01/04/2017 Pt. Non Urgent Medic al Question Medicine/Pediatrics - [address] [phone] Danuta Jiménez PA-C Social History Tobacco Use Types Packs/Day [...] as of this encounter Progress Notes * Miriam Mtz M.A. - 01/04/2017 1:43 PM EDT Left message for patient, according to office notes from 06/10/15 pt was reduced by Dr. Lou to 12.5mg BID * Miriam Mtz M.A. - 01/04/2017 1:34 PM EDTFrom: Dana Grant To: Danuta Jiménez PA-C Sent: 01/04/2017 1:26 PM EDT Subject: medication Good afternoon Mariia, this is Madelin Cortez's daughter. I have a question as far as my mom's hydralazine and the way she supposed to be taking it. The bottle I'm looking at says half tablet twice a day, she says she's been taking it 1 tablet twice a day. She never run out before and now she has, imwondering when that change took place if you can give me a call I'd greatly appreciate it [phone] thank you I hope you're having a great documented in this encounter Plan of Treatment Not on file documented as of this encounter Visit Diagnoses Not on filedocumented in this encounter Care Teams Solid Glass Rod Dowel Machine Operator Relationship Specialty Start Date End Date Hawa Torres MD PCP - General Internal Medicine 12/17/15 3/28/21 Rancho Matthews MD [address] [place] [address] PCP - General Internal Medicine 12/20/20 03/22/21 [facility], Pcp [address] [place] [address] 401[address] PCP - General Internal Medicine 03/23/21 04/11/21 Rancho Matthews MD [address] [place] [address] 21621 PCP - General Internal Medicine 04/12/21 04/12/21 Hawa Torres MD [address] [place] [address] 88835 PCP - General Internal Medicine 04/13/21 06/05/21 Hawa Torres MD [address] [place] [address] 67168 PCP - General Internal Medicine 06/06/21 08/07/21 [facility], Pcp [address] [place] [address] 64074 PCP - General Internal Medicine 08/08/21 10/27/21 Hawa Torres MD PCP - General Internal Medicine 10/28/21 04/11/22 [facility], Pcp [address] [place] [address]64 PCP - General Internal Medicine 04/12/22 05/01/22 Hawa Torres MD [address] [place] [address] PCP - General Internal Medicine 05/02/22 05/21/22 Melonie Sorensen, DO [address] [place] [address] PCP - General Internal Medicine 05/22/22 09/07/22 [facility], Pcp [address] [place] [address]3640 PCP - General Internal Medicine 09/08/22 11/08/22 Hawa Torres MD [address] [place] [address] PCP - General Internal Medicine 11/09/22 Taya Gonzales MD Specialist Cardiology 11/01/20 Chandan Breen PA Specialist Cardiology 11/01/20 02/20/24 Jessi Erwin DNP [address] [place] [address] Specialist Nurse Practitioner Family 02/21/24 documented as of this encounter
--- OUTSIDE RECORDS SUMMARY | 2024-11-04 13:51 | XMS_ITS | Encounter Summary ---
Author Organization [facility] Address [address] [place] [address] Care Team Providers Care Timber Surveyor Name Role Phone Hawa Torres MD Primary Care Provider Unavaila Taya Covington MD Unavailable [phone] Chandan Breen Unavailable Rancho Matthews MD Primary Care Provider [phone] [facility], Pcp Primary Care Provider UnavailRancho Brock MD Primary Care Provider [phone] Hawa Torres MD Primary Care Provider Unavaila Hawa Maddox MD Primary Care Provider Unavaila elpidio [facility], Pcp Primary Care Provider UnavailHawa Barron MD Primary Care Provider Unavaila ble [facility], Pcp Primary Care Provider Hawa Zavala MD Primary Care Provider Unavaila ble Melonie Sorensen DO Primary Care Pro vider Unavailable [facility], Pcp Primary Care Provider Hawa Zavala MD Primary Care Provider Unavaila Jessi Cagle [facility] Unavailable + Reason for Visit * Reason Onset Date Comments Faxed Order 12/01/2020 Encounter Details Date Type Department Care Team Description 12/01/2020 Telephone Adult Medicine [address] [address] Hawa Torres MD Faxed Order Social History Tobacco Use Types Packs/Day Years [...] encounter Miscellaneous Notes * Telephone Encounter - Charissa Osborn - 12/01/2020 11:02 AM EST Orders from [facility] to be signed and faxed back to [phone] . documented in this encounter Plan of Treatment Not on file documented as of this encounter Visit Diagnoses Not on filedocumented in this encounter Care Teams Timber Surveyor Relationship Specialty Start Date End Date Hawa Torres MD PCP - General Internal Medicine 09/09/15 12/19/20 Rancho Matthews MD [address] [place] [address] PCP - General Internal Medicine 12/20/20 03/22/21 [facility], [address] [address] PCP - General Internal Medicine 03/23/21 04/11/21 Rancho Matthews MD [address] [place] [address] 96528 PCP - General Internal Medicine 04/12/21 04/12/21 Hawa Torres MD [address] [place] [address] 71156 PCP - General Internal Medicine 04/13/21 06/05/21 Hawa Torres MD [address] [place] [address] PCP - General Internal Medicine 06/06/21 08/07/21 [facility], Pcp [address] [place] [address] PCP - General Internal Medicine 08/08/21 10/27/21 Hawa Torres MD PCP - General Internal Medicine 10/28/21 04/11/22 [facility], Pcp [address] [place] [address]13 PCP - General Internal Medicine 04/12/22 05/01/22 Hawa Torres MD [address] [place] [address] PCP - General Internal Medicine 05/02/22 05/21/22 Melonie Sorensen, [address] [place] [address] PCP - General Internal Medicine 05/22/22 09/07/22 [facility], Pcp [address] [place] [address] PCP - General Internal Medicine 09/08/22 11/08/22 Hawa Torres MD [address] [place] [address] PCP - General Internal Medicine 11/09/22 Taya Gonzales MD Specialist Cardiology 11/01/20 Chandan Breen PA Specialist Cardiology 11/01/20 02/20/24 Jessi Erwin, KITTY [address] [place] [address] Specialist Nurse Practitioner [facility] 02/21/24 documented as of this encounter
--- OUTSIDE RECORDS SUMMARY | 2024-11-04 13:51 | XMS_ITS | Encounter Summary ---
Author Organization [facility] Address [address] [place] [address] Care Team Providers Care Supervisor In Circuit Testing Name Role Phone Taya Gonzales MD Unavailable [phone] Chandan Breen Unavailable [facility], Pcp Primary Care Provider Hawa Zavala MD Primary Care Provider UnavailJessi Hogan DNP Unavailable [phone] Encounter Details Date Type Department Care Team Description 10/20/2022 Hospital Medical Records [address] [place] [address] Social History Tobacco Use Types Packs/Day Years [...] Name Priority Date/Time Associated Diagnosis Comments OUTSIDE EKG Routine 10/20/2022 OUTSIDE PLAIN FILM Routine 10/20/2022 OUTSIDE LAB Routine 10/20/2022 documented in this encounter Results * OUTSIDE PLAIN FILM (10/20/2022) Provider Abstract RADIOLOGY * OUTSIDE LAB (10/20/2022) Provider Abstract LAB * OUTSIDE EKG (10/20/2022) Provider Abstract CARDIOLOGY documented in this encounter Visit Diagnoses Not on filedocumented in this encounter Care Teams Supervisor In Circuit Testing Relationship Specialty Start Date End Date [facility], Pcp PCP - General Internal Medicine 09/08/22 11/08/22 Hawa Torres MD PCP - General Internal Medicine 11/09/22 Taya Gonzales MD Specialist Cardiology 11/01/20 Chandan Breen PA Specialist Cardiology 11/01/20 02/20/24 Jessi Erwin DNP Specialist Nurse Practitioner Family 02/21/24 documented as of this encounter
--- OUTSIDE RECORDS SUMMARY | 2024-11-04 13:51 | XMS_ITS | Encounter Summary ---
Author Organization [facility] Address [address] [place] [address] Care Team Providers Care Credit Or Loans Officer Name Role Phone Taya Gonzales MD Unavailable [phone] Chandan Breen Unavailable [facility], Pcp Primary Care Provider Haaw Zavala MD Primary Care Provider Unavaila ble [facility], Pcp Primary Care Provider Hawa Zavala MD Primary Care Provider Unavaila ble Melonie Sorensen DO Primary Care Pro vider Unavailable [facility], Pcp Primary Care Provider Hawa Zavala MD Primary Care Provider Unavaila ble Jessi Erwin [facility] Unavailable [phone] Encounter Details Date Type Department Care Team Description 08/22/2021 Orders Only Medical Records [address] [place] [address] Coy Salomon MD [address] [place] [phone] Social History Tobacco Use Types Packs/Day Years [...] have Coronavirus / COVID-19? No / Unsure 08/25/2021 2:55 PM EST documented as of this encounter Plan of Treatment Not on file documented as of this encounter Procedures Procedure Name Priority Date/Time Associated Diagnosis Comments OUTSIDE SLEEP STUDY Routine 08/07/2021 documented in this encounter Results * OUTSIDE SLEEP STUDY (08/07/2021) Coy Salomon MD PULMONOLOGY documented in this encounter Visit Diagnoses Not on filedocumented in this encounter Care Teams Credit Or Loans Officer Relationship Specialty Start Date End Date Community, Pcp PCP - General Internal Medicine 08/08/21 10/27/21 Hawa Torres MD PCP - General Internal Medicine 10/28/21 04/11/22 [facility], Pcp PCP - General Internal Medicine 04/12/22 05/01/22 Hawa Torres MD PCP - General Internal Medicine 05/02/22 05/21/22 Melonie Sorensen DO PCP - General Internal Medicine 05/22/22 09/07/22 [facility], Pcp PCP - General Internal Medicine 09/08/22 11/08/22 Hawa Torres MD PCP - General Internal Medicine 11/09/22 Taya Gonzales MD Specialist Cardiology 11/01/20 Chandan Breen PA Specialist Cardiology 11/01/20 02/20/24 Jessi Erwin DNP Specialist Nurse Practitioner Family 02/21/24 documented as of this encounter
--- OUTSIDE RECORDS SUMMARY | 2024-11-04 13:51 | XMS_ITS | Encounter Summary ---
Author Organization [facility] Address [address] [place] [address] Care Team Providers Care Machine Assembler Supervisor Name Role Phone Hawa Torres MD Primary Care Provider UnavailTaya Lira MD Unavailable [phone] Chandan Breen Unavailable + Rancho Matthews MD Primary Care Provider + [facility], [facility] Primary Care Provider UnavailRancho Brock MD Primary Care Provider +[phone] Hawa Torres MD Primary Care Provider Unavaila Hawa Maddox MD Primary Care Provider Unavaila elpidio [facility], Pcp Primary Care Provider UnavailHawa Barron MD Primary Care Provider Unavaila ble [facility], Pcp Primary Care Provider Hawa Zavala MD Primary Care Provider Unavaila Melonie Rojas DO Primary Care Pro vider Unavailable [facility], Pcp Primary Care Provider Hawa Zavala MD Primary Care Provider Unavaila Jessi Cagle [facility] Unavailable + [phone] Encounter Details Date Type Department Care Team Description 12/08/2020 Department Assistant Report Medical Records [address] [place] [address] Lorin Mcclelland MD Social History Tobacco Use Types Packs/Day [...] on filedocumented in this encounter Care Teams Machine Assembler Supervisor Relationship Specialty Start Date End Date Hawa Torres MD PCP - General Internal Medicine 09/09/15 12/19/20 Rancho Matthews MD [address] [place] [address] PCP - General Internal Medicine 12/20/20 03/22/21 [facility], [place] [phone] PCP - General Internal Medicine 03/23/21 04/11/21 Rancho Matthews MD [address] [place] [address] PCP - General Internal Medicine 04/12/21 04/12/21 Hawa Torres MD [address] [place] [address] PCP - General Internal Medicine 04/13/21 06/05/21 Hawa Torres MD [address] [place] [address] PCP - General Internal Medicine 06/06/21 08/07/21 [facility], [address] [address] PCP - General Internal Medicine 08/08/21 10/27/21 Hawa Torres MD PCP - General Internal Medicine 10/28/21 04/11/22 [facility], Pcp [address] [place] [address] PCP - General Internal Medicine 04/12/22 05/01/22 Hawa Torres MD [address] [place] [address] PCP - General Internal Medicine 05/02/22 05/21/22 Melonie Sorensen DO [address] [place] [address] PCP - General Internal Medicine 05/22/22 09/07/22 [facility], Pcp [address] [place] [address] PCP - General Internal Medicine 09/08/22 11/08/22 Hawa Torres MD [address] [place] [address] 79144 PCP - General Internal Medicine 11/09/22 Taya Gonzales MD Specialist Cardiology 11/01/20 Chandan Breen PA Specialist Cardiology 11/01/20 02/20/24 Jessi Erwin, KITTY [address] [place] [address] Specialist Nurse Practitioner [facility] 02/21/24 documented as of this encounter
--- OUTSIDE RECORDS SUMMARY | 2024-11-04 13:51 | XMS_ITS | Encounter Summary ---
Author Organization [facility] Address [address] [place] [address] Care Team Providers Care Garage Mechanic Name Role Phone Lul Lou MD Primary Care Provider Unavailab Salomón Cummings MD Primary Care Provider Unavail able Hawa Torres MD Primary Care Provider Unavaila Hawa Maddox MD Primary Care Provider Unavaila Taya Covington MD Unavailable Chandan Breen Unavailable Rancho Matthews MD Primary Care Provider [phone] [facility], Pcp Primary Care Provider Unavailabl Rancho Martin MD Primary Care Provider [phone] Hawa Torres MD Primary Care Provider Unavaila Hawa Maddox MD Primary Care Provider Unavaila ble [facility], Pcp Primary Care Provider UnavailHawa Barron MD Primary Care Provider Unavaila ble [facility], Pcp Primary Care Provider UnavailHawa Barron MD Primary Care Provider Unavaila ble Melonie Sorensen DO Primary Care Pro vider Unavailable [facility], Pcp Primary Care Provider UnavailHawa Barron MD Primary Care Provider Unavaila ble Jessi Erwin DNP Unavailable [phone] Reason for Visit * Reason Onset Date Comments Form 03/18/2013 Encounter Details Date Type Department Care Team Description 03/18/2013 Telephone Medicine/Pediatrics [address] [phone] Lul Lou MD Form Social History Tobacco Use Types Packs/Day Years [...] encounter Miscellaneous Notes * Telephone Encounter - Tracy Ramirez M.A. - 03/18/2013 10:54 AM EDT Please sign and return. Thank You. * Telephone Encounter - Amee Shah - 03/18/2013 10:33 AM EDT Medication review form needs to be reviewed and signed by Lul Lou MD and faxed back to [facility]. See form in bin in call center documented in this encounter Plan of Treatment Not on file documented as of this encounter Visit Diagnoses Not on filedocumented in this encounter Care Teams Garage Mechanic Relationship Specialty Start Date End Date Lul Lou MD PCP - General Internal Medicine 05/16/12 06/06/14 Salomón Lou MD PCP - General Internal Medicine 09/01/14 09/08/15 Hawa Torres MD PCP - General Internal Medicine 09/09/15 12/19/20 Hawa Torres MD PCP - General 06/07/14 08/31/14 Rancho Matthews MD [address] [place] [address] PCP - General Internal Medicine 12/20/20 03/22/21 [facility], Pcp [address] [place] [address] PCP - General Internal Medicine 03/23/21 04/11/21 Rancho Matthews MD [address] [place] [address] PCP - General Internal Medicine 04/12/21 04/12/21 Hawa Torres MD [address] [place] [address]951 PCP - General Internal Medicine 04/13/21 06/05/21 Hawa Torres MD [address] [place] [address]69 PCP - General Internal Medicine 06/06/21 08/07/21 [facility], Pcp [address] [place] [address] 27978 PCP - General Internal Medicine 08/08/21 10/27/21 Hawa Torres MD PCP - General Internal Medicine 10/28/21 04/11/22 [facility], Pcp [address] [place] [address] 15849 PCP - General Internal Medicine 04/12/22 05/01/22 Hawa Torres MD [address] [place] [address]23 PCP - General Internal Medicine 05/02/22 05/21/22 Melonie Sorensen, DO [address] [place] [address] 24269 PCP - General Internal Medicine 05/22/22 09/07/22 [facility], Pcp [address] [place] [address] 43066 PCP - General Internal Medicine 09/08/22 11/08/22 Hawa Torres MD [address] [place] [address] PCP - General Internal Medicine 11/09/22 Taya Gonzales MD Specialist Cardiology 11/01/20 Chandan Breen PA Specialist Cardiology 11/01/20 02/20/24 Jessi Erwin, KITTY [address] [place] [address] Specialist Nurse Practitioner Family 02/21/24 documented as of this encounter
--- OUTSIDE RECORDS SUMMARY | 2024-11-04 13:51 | XMS_ITS | Encounter Summary ---
Author Organization [facility] Address [address] [place] [address] Care Team Providers Care Take Up Supervisor Name Role Phone Taya Gonzales MD Unavailable [phone] Chandan Breen Unavailable Hawa Torres MD Primary Care Provider Unavaila Jessi Cagle DNP Unavailable [phone] Encounter Details Date Type Department Care Team Description 12/20/2023 Orders Only Endocrinology - [address] [address] Lucille Clarke PA-C [address] [place] [address] [id number] Hypothyroidism, unspecified type (Primary Dx) Social History Tobacco Use Types [...] as of this encounter Results * (ABNORMAL) THYROID PROFILE W/TSH (12/20/2023 4:28 PM EDT) TSH CASCADE 4.94(H) 0.40 - 4.00 uIU/ml 12/20/2023 8:16 PM EDT [facility] 12/20/2023 4:28 PM EDT 12/20/2023 4:28 PM EDT Narrative [facility] - 12/20/2023 8:16 PM EDT Release to patient->Immediate Lucille Clarke PA-C [email or web address] documented in this encounter Visit Diagnoses Diagnosis Hypothyroidism, unspecified type- Primary Hypothyroidism, unspecified type documented in this encounter Care Teams Take Up Supervisor Relationship Specialty Start Date End Date Hawa Torres MD PCP - General Internal Medicine 11/09/22 Taya Gonzales MD Specialist Cardiology 11/01/20 Chandan Breen PA Specialist Cardiology 11/01/20 02/20/24 Jessi Erwin DNP Specialist Nurse Practitioner Family 02/21/24 documented as of this encounter
--- OUTSIDE RECORDS SUMMARY | 2024-11-04 13:52 | XMS_ITS | Encounter Summary ---
Author Organization [facility] Address [address] [place] [address] Care Team Providers Care Compatibility Test Engineer Name Role Phone Hawa Torres MD Primary Care Provider Unavaila Taya Covington MD Unavailable [phone] Chandan Breen Unavailable + Rancho Matthews MD Primary Care Provider + [facility], Pcp Primary Care Provider UnavailRancho Brock MD Primary Care Provider [phone] Hawa Torres MD Primary Care Provider Unavaila Hawa Maddox MD Primary Care Provider Unavaila elpidio [facility], Pcp Primary Care Provider UnavailHawa Barron MD Primary Care Provider Unavaila ble [facility], Pcp Primary Care Provider Hawa Zavala MD Primary Care Provider Unavaila ble Melonie Sorensen DO Primary Care Pro vider Unavailable [facility], Pcp Primary Care Provider UnavailHawa Barron MD Primary Care Provider Unavaila Jessi Cagle [facility] Unavailable + Encounter Details Date Type Department Care Team Description 12/10/2018 Orders Only Medicine/Pediatrics - [address] [phone] Danuta Jiménez PA-C Anemia, chronic disease (Primary Dx) Social History Tobacco Use Types [...] as of this encounter Results * (ABNORMAL) VITAMIN B-12, ASSAY (04/18/2019 10:07 AM EDT) VITAMIN B12 977(H) 250 - 900 pg/mL 04/18/2019 2:16 PM EDT [facility] 04/18/2019 10:0 7 AM EDT 04/18/2019 10:07 AM EDT Danuta Jiménez PA-C LAB [facility] documented in this encounter Visit Diagnoses Diagnosis Anemia, chronic disease- Primary Anemia of other chronic disease documented in this encounter Care Teams Compatibility Test Engineer Relationship Specialty Start Date End Date Hawa Torres MD PCP - General Internal Medicine 09/09/15 12/19/20 Rancho Matthews MD [address] [place] [address] PCP - General Internal Medicine 12/20/20 03/22/21 [facility], [address] [address] PCP - General Internal Medicine 03/23/21 04/11/21 Rancho Matthews MD [address] [place] [address] PCP - General Internal Medicine 04/12/21 04/12/21 Hawa Torres MD [address] [place] [address] PCP - General Internal Medicine 04/13/21 06/05/21 Hawa Torres MD [address] [place] [address] PCP - General Internal Medicine 06/06/21 08/07/21 [facility], Pcp [address] [place] [address] PCP - General Internal Medicine 08/08/21 10/27/21 Hawa Torres MD PCP - General Internal Medicine 10/28/21 04/11/22 [facility], Pcp [address] [place] [address] PCP - General Internal Medicine 04/12/22 05/01/22 Hawa Torres MD [address] [place] [address] PCP - General Internal Medicine 05/02/22 05/21/22 Melonie Sorensen, DO [address] [place] [address] PCP - General Internal Medicine 05/22/22 09/07/22 [facility], Pcp [address] [place] [address] PCP - General Internal Medicine 09/08/22 11/08/22 Hawa Torres MD [address] [place] [address] PCP - General Internal Medicine 11/09/22 Taya Gonzales MD Specialist Cardiology 11/01/20 Chandan Breen PA Specialist Cardiology 11/01/20 02/20/24 Jessi Erwin DNP [address] [place] [address] Specialist Nurse Practitioner [facility] 02/21/24 documented as of this encounter
--- OUTSIDE RECORDS SUMMARY | 2024-11-04 13:52 | XMS_ITS | Encounter Summary ---
Author Organization [facility] Address [address] [place] [address] Care Team Providers Care Cleaner Name Role Phone Taya Gonzales MD Unavailable [phone] Chandan Breen Unavailable + Rancho Matthews MD Primary Care Provider [phone] [facility], Pcp Primary Care Provider UnavailRancho Brock MD Primary Care Provider [phone] Hawa Torres MD Primary Care Provider Unavaila Hawa Maddox MD Primary Care Provider Unavaila ble [facility], Pcp Primary Care Provider UnavailHawa Barron MD Primary Care Provider Unavaila ble [facility], Pcp Primary Care Provider UnavailHawa Barron MD Primary Care Provider Unavaila ble Melonie Sorensen DO Primary Care Pro vider Unavailable [facility], Pcp Primary Care Provider UnavailHawa Barron MD Primary Care Provider Unavaila ble Jessi Erwin [facility] Unavailable [phone] Encounter Details Date Type Department Care Team Description 03/01/2021 Household Refrigerator Mechanic Report Medical Records [address] [place] [address] [facility] Social History Tobacco Use Types Packs/Day Years [...] have Coronavirus / COVID-19? No / Unsure 01/31/2021 1:58 PM EDT documented as of this encounter Plan of Treatment Not on file documented as of this encounter Visit Diagnoses Not on filedocumented in this encounter Care Teams Cleaner Relationship Specialty Start Date End Date Rancho Matthews MD [address] [place] [address] PCP - General Internal Medicine 12/20/20 03/22/21 [facility], Pcp [address] [place] [address] PCP - General Internal Medicine 03/23/21 04/11/21 Rancho Matthews MD [address] [place] [address] PCP - General Internal Medicine 04/12/21 04/12/21 Hawa Torres MD [address] [place] [address] PCP - General Internal Medicine 04/13/21 06/05/21 Hawa Torres MD [address] [place] [address] PCP - General Internal Medicine 06/06/21 08/07/21 [facility], Pcp [address] [place] [address] PCP - General Internal Medicine 08/08/21 10/27/21 Hawa Torres MD [address] [place] [address] PCP - General Internal Medicine 10/28/21 04/11/22 [facility], Pcp [address] [place] [address] PCP - General Internal Medicine 04/12/22 05/01/22 Hawa Torres MD [address] [place] [address] PCP - General Internal Medicine 05/02/22 05/21/22 Melonie Sorensen DO [address] [place] [address] PCP - General Internal Medicine 05/22/22 09/07/22 [facility], [address] [address] PCP - General Internal Medicine 09/08/22 11/08/22 Hawa Torres MD [address] [place] [address] PCP - General Internal Medicine 11/09/22 Taya Gonzales MD Specialist Cardiology 11/01/20 Chandan Breen PA Specialist Cardiology 11/01/20 02/20/24 Jessi Erwin DNP [address] [place] [address] Specialist Nurse Practitioner [facility] 02/21/24 documented as of this encounter
--- OUTSIDE RECORDS SUMMARY | 2024-11-04 13:52 | XMS_ITS | Encounter Summary ---
Author Organization [facility] Address [address] [place] [address] Care Team Providers Care Disaster Recovery Specialist Name Role Phone Hawa Torres MD Primary Care Provider Unavaila Taya Covington MD Unavailable [phone] Cahndan Breen Unavailable + Rancho Matthews MD Primary Care Provider + [facility], Pcp Primary Care Provider UnavailRancho [...] Primary Care Provider Unavaila Jessi Cagle [facility] Unavailable + [phone] Reason for Visit * Reason Onset Date Comments Remote Device Check 11/27/2020 Encounter Details Date Type Department Care Team Description 11/27/2020 Telephone Cardio PVC POC [address] [place] [address] Nikhil Sorenson MD [address] [place] [address] [id number] Remote Device Check Social History Tobacco Use [...] * Telephone Encounter - FLORY Edward - 12/02/2020 12:38 PM EST Spoke to the daughter on telephone. Mother continues to do well, and daughter denies the patient experiencing any cardiorespiratory complaints. Daughter still wants to to know if there has been conversation between radiation oncology and Dr. Salgado as to whether or not the patient can receive radiation to advise. I told the daughter I am not aware of said conversation, however I would reach out toDr. Salgado to try to find out. Since I know what the outcome of the conversation was I would let herknow. * Telephone Encounter - Mara Mcgarry C.M.A. - 12/02/2020 8:04 AM EST Daughter feels like last night she turned a slight corner towards the better. Her weight is 144 today. She came home at 148 but before all this she was 136. Breathing slightly better. She is asking if there was any decision with the devcie and radiation oncology (she needs radiation on the side [facility] is located) * Telephone Encounter - Taya Gonzales MD - 12/01/2020 8:55 AM EST Can you call and ask her if her breathing is worsening or if she's gaining weight? If so, I may puther on a transiently higher dose of Lasix. Thanks. * Telephone Encounter - Julia Marcos NP - 11/29/2020 6:19 PM EST See below, thoracic impedance continues to trend downward * Telephone Encounter - Mara Mcgarry C.M.A. - 11/29/2020 10:00 AM EST I see your task from 11/25/20. Thoracic Impedance is still trending down as well as BiV Pacing. I have scanned it in for your review. documented in this encounter Plan of Treatment Not on file documented as of this encounter Visit Diagnoses Not on filedocumented in this encounter Care Teams Disaster Recovery Specialist Relationship Specialty Start Date End Date Hawa Torres MD PCP - General Internal Medicine 09/09/15 12/19/20 Rancho Matthews MD [address] [place] [address] PCP - General Internal Medicine 12/20/20 03/22/21 [facility], [address] [address] PCP - General Internal Medicine 03/23/21 04/11/21 Rancho Matthews MD [address] [place] [address] PCP - General Internal Medicine 04/12/21 04/12/21 Hawa Torres MD [address] [place] [address] PCP - General Internal Medicine 04/13/21 06/05/21 Hawa Torres MD [address] [place] [address] PCP - General Internal Medicine 06/06/21 08/07/21 [facility], Pcp [address] [place] [address] PCP - General Internal Medicine 08/08/21 10/27/21 Hawa Torres MD PCP - General Internal Medicine 10/28/21 04/11/22 [facility], Pcp [address] [place] [address] PCP - General Internal Medicine 04/12/22 05/01/22 Hawa Torres MD [address] [place] [address] PCP - General Internal Medicine 05/02/22 05/21/22 Melonie Sorensen, [address] [place] [address] PCP - General Internal Medicine 05/22/22 09/07/22 [facility], Pcp [address] [place] [address] PCP - General Internal Medicine 09/08/22 11/08/22 Hawa Torres MD [address] [place] [address] PCP - General Internal Medicine 11/09/22 Taya Gonzales MD Specialist Cardiology 11/01/20 Chandan Breen PA Specialist Cardiology 11/01/20 02/20/24 Jessi Erwin DNP [address] [place] [address] Specialist Nurse Practitioner [facility] 02/21/24 documented as of this encounter
--- OUTSIDE RECORDS SUMMARY | 2024-11-04 13:52 | XMS_ITS | Encounter Summary ---
Author Organization [facility] Address [address] [place] [address] Care Team Providers Care Outpatient Scheduler Name Role Phone Taya Gonzales MD Unavailable + Chandan Breen Unavailable + Rancho Matthews MD Primary Care Provider + [facility], Pcp Primary Care Provider UnavailRancho Brock MD Primary Care Provider + Hawa Torres MD Primary Care Provider Unavaila Hawa Maddox MD Primary Care Provider Unavaila ble [facility], Pcp Primary Care Provider UnavailHawa Barron MD Primary Care Provider Unavaila ble [facility], Pcp Primary Care Provider UnavailHawa Barron MD Primary Care Provider Unavaila ble Melonie Sorensen DO Primary Care Pro vider Unavailable [facility], Pcp Primary Care Provider UnavailHawa Barron MD Primary Care Provider Unavaila ble Jessi Erwin [facility] Unavailable [phone] Encounter Details Date Type Department Care Team Description 03/08/2021 Refill Medicine/Pediatrics - [address] [phone] Hawa Torres MD Social History Tobacco Use [...] * Telephone Encounter - Steve Kraft - 03/08/2021 11:37 AM EDT Last OV 01/31/21. Upcoming Appt: 03/11/21. Lab Results Component Value Date NA 139 01/21/2021 K 5.0 01/21/2021 CO2 32 01/21/2021 CL 104 01/21/2021 BUN 47 01/21/2021 CREAT 1.69 01/21/2021 GLU 210 06/25/2020 CA 11.5 01/21/2021 GFR 29 01/21/2021 documented in this encounter Plan of Treatment Not on file documented as of this encounter Visit Diagnoses Not on filedocumented in this encounter Care Teams Outpatient Scheduler Relationship Specialty Start Date End Date Rancho Matthews MD [address] [place] [address] PCP - General Internal Medicine 12/20/20 03/22/21 [facility], Pcp [address] [place] [address] PCP - General Internal Medicine 03/23/21 04/11/21 Rancho Matthews MD [address] [place] [address] PCP - General Internal Medicine 04/12/21 04/12/21 Hawa Torres MD [address] [place] [address], [place] [address] PCP - General Internal Medicine 04/13/21 06/05/21 Hawa Torres MD [address] [place] [address], [place] [address] PCP - General Internal Medicine 06/06/21 08/07/21 [facility], Pcp [address] [place] [address], [place] [address] PCP - General Internal Medicine 08/08/21 10/27/21 Hawa Torres MD [address] [place] [address], [place] [address] PCP - General Internal Medicine 10/28/21 04/11/22 [facility], Pcp [address] [place] [address], [place] [address] PCP - General Internal Medicine 04/12/22 05/01/22 Hawa Torres MD [address] [place] [address], [place] [address] PCP - General Internal Medicine 05/02/22 05/21/22 Melonie Sorensen, DO [address] [place] [address], [place] [address] PCP - General Internal Medicine 05/22/22 09/07/22 [facility], Pcp [address] [place] [address], [place] [address] PCP - General Internal Medicine 09/08/22 11/08/22 Hawa Torres MD [address] [place] [address], [place] [address] PCP - General Internal Medicine 11/09/22 Taya Gonzales MD Specialist Cardiology 11/01/20 Chandan Breen PA Specialist Cardiology 11/01/20 02/20/24 Jessi Erwin DNP [address] [place] [address], [place] [address] Specialist Nurse Practitioner Family 02/21/24 documented as of this encounter
--- OUTSIDE RECORDS SUMMARY | 2024-11-04 13:52 | XMS_ITS | Encounter Summary ---
Author Organization [facility] Address [address] [place] [address] Care Team Providers Care Cosmetic Chemist Name Role Phone Hawa Torres MD Primary Care Provider Unavaila Taya Covington MD Unavailable [phone] Chandan Breen Unavailable Rancho Matthews MD Primary Care Provider [phone] [facility], Pcp Primary Care Provider UnavailRancho Brock MD Primary Care Provider +[phone] Hawa Torres MD Primary Care Provider Unavaila Hawa Maddox MD Primary Care Provider Unavaila elpidio [facility], Pcp Primary Care Provider UnavailHawa Barron MD Primary Care Provider Unavaila ble [facility], Pcp Primary Care Provider Hawa Zavala MD Primary Care Provider Unavaila Melonie Rojas DO Primary Care Pro vider Unavailable [facility], Pcp Primary Care Provider UnavailaHwa Barron MD Primary Care Provider Unavaila Jessi Cagle [facility] Unavailable [phone] Encounter Details Date Type Department Care Team Description 08/18/2019 Incoming Correspondence Medical Records [address] [place], [place] [id number] [place] [address] Social History Tobacco Use Types Packs/Day Years [...] on filedocumented in this encounter Care Teams Cosmetic Chemist Relationship Specialty Start Date End Date Hawa Torres MD PCP - General Internal Medicine 09/09/15 12/19/20 Rancho Matthews MD [address] [place] [address] PCP - General Internal Medicine 12/20/20 03/22/21 [facility], Pcp [address] [place] [address] PCP - General Internal Medicine 03/23/21 04/11/21 Rancho Matthews MD [address] [place] [address] PCP - General Internal Medicine 04/12/21 04/12/21 Hawa Torres MD [address] [place] [address] PCP - General Internal Medicine 04/13/21 06/05/21 Hawa Torres MD [address] [place] [address] PCP - General Internal Medicine 06/06/21 08/07/21 [facility], Pcp [address] [place] [address] PCP - General Internal Medicine 08/08/21 10/27/21 Hawa Torres MD PCP - General Internal Medicine 10/28/21 04/11/22 [facility], Pcp [address] [place] [address] PCP - General Internal Medicine 04/12/22 05/01/22 Hawa Torres MD [address] [place] [address]69 PCP - General Internal Medicine 05/02/22 05/21/22 Melonie Sorensen DO [address] [place] [address] PCP - General Internal Medicine 05/22/22 09/07/22 [facility], Pcp [address] [place] [address] PCP - General Internal Medicine 09/08/22 11/08/22 Hawa Torres MD [address] [place], [place] [phone] PCP - General Internal Medicine 11/09/22 Taya Gonzales MD Specialist Cardiology 11/01/20 Chandan Breen PA Specialist Cardiology 11/01/20 02/20/24 Jessi Erwin, KITTY [address] [place] [address] Specialist Nurse Practitioner [facility] 02/21/24 documented as of this encounter
--- OUTSIDE RECORDS SUMMARY | 2024-11-04 13:52 | XMS_ITS | Encounter Summary ---
Author Organization [facility] Address [address] [place] [address] Care Team Providers Care Beater Head Name Role Phone Hawa Torres MD Primary Care Provider Unavaila Taya [place] MD Unavailable + Chandan Breen Unavailable + Rancho Matthews MD Primary Care Provider + [facility], Pcp Primary Care Provider UnavailRancho Brock MD Primary Care Provider + Hawa Torres MD Primary Care Provider Unavaila Hawa Maddox MD Primary Care Provider Unavaila ble [facility], Pcp Primary Care Provider UnavailHawa Barron MD Primary Care Provider Unavaila ble [facility], Pcp Primary Care Provider Hawa Zavala MD Primary Care Provider Unavaila ble Melonie Sorensen DO Primary Care Pro vider Unavailable Community, Pcp Primary Care Provider Hawa Zavala MD Primary Care Provider Unavaila Jessi Cagle DNP Unavailable [phone] Encounter Details Date Type Department Care Team Description 04/17/2016 Pt. Non Urgent Medical Question Cardiology - [place] [address] [place] [address] [phone] Jessi Erwin DNP [address] [place] [address] [phone] Social History Tobacco Use Types Packs/Day Years [...] of this encounter Progress Notes * Janae Su L.P.N. - 04/18/2016 8:56 AM EDTFrom: Dana Grant To: Jessi Erwin DNP,SEAFOOD PREPARER Sent: 04/17/2016 9:31 PM EDT Subject: Dana Grant meds Good Morning, I apologize for my delay in this response. Mom is taking the Isosorbide/Imdur 30 mg once a day. Thank you, Madelin documented in this encounter Plan of Treatment Not on file documented as of this encounter Visit Diagnoses Not on filedocumented in this encounter Care Teams Beater Head Relationship Specialty Start Date End Date Hawa Torres MD PCP - General Internal Medicine 09/09/15 12/19/20 Rancho Matthews MD [address] [place] [address] 53220 PCP - General Internal Medicine 12/20/20 03/22/21 [facility], [address] [address] PCP - General Internal Medicine 03/23/21 04/11/21 Rancho Matthews MD [address] [place] [address] 65596 PCP - General Internal Medicine 04/12/21 04/12/21 Hawa Torres MD [address] [place] [address] 78981 PCP - General Internal Medicine 04/13/21 06/05/21 Hawa Torres MD [address] [place] [address] 01306 PCP - General Internal Medicine 06/06/21 08/07/21 [facility], Pcp [address] [place] [address] PCP - General Internal Medicine 08/08/21 10/27/21 Hawa Torres MD PCP - General Internal Medicine 10/28/21 04/11/22 [facility], Pcp [address] [place] [address] 89633 PCP - General Internal Medicine 04/12/22 05/01/22 Hawa Torres MD [address] [place] [address] PCP - General Internal Medicine 05/02/22 05/21/22 Melonie Sorensen, [address] [place] [address] PCP - General Internal Medicine 05/22/22 09/07/22 [facility], Pcp [address] [place] [address] PCP - General Internal Medicine 09/08/22 11/08/22 Hawa Torres MD [address] [place] [address] PCP - General Internal Medicine 11/09/22 Taya Gonzales MD Specialist Cardiology 11/01/20 Chandan Breen PA Specialist Cardiology 11/01/20 02/20/24 Jessi Erwin DNP [address] [place] [address] Specialist Nurse Practitioner [facility] 02/21/24 documented as of this encounter
--- OUTSIDE RECORDS SUMMARY | 2024-11-04 13:52 | XMS_ITS | Encounter Summary ---
Author Organization [facility] Address [address] [place] [address] Care Team Providers Care Demand Planner Name Role Phone Hawa Torres MD Primary Care Provider Unavaila Taya [place] MD Unavailable [phone] Chandan Breen Unavailable + Rancho Matthews MD Primary Care Provider + [facility], Pcp Primary Care Provider UnavailRancho Brock MD Primary Care Provider + Hawa Torres MD Primary Care Provider Unavaila Hawa Maddox MD Primary Care Provider Unavaila ble [facility], Pcp Primary Care Provider UnavailHawa Barron MD Primary Care Provider Unavaila ble [facility], Pcp Primary Care Provider Hawa Zavala MD Primary Care Provider Unavaila ble Melonie Sorensen DO Primary Care Pro vider Unavailable Community, Pcp Primary Care Provider UnavailHawa Barron MD Primary Care Provider Unavaila Jessi Cagle [facility] Unavailable [phone] Encounter Details Date Type Department Care Team Description 07/28/2016 Orders Only Cardiology - [address] [phone] Danielle Almanza PA-C [address] [place] [address] [phone] CKD (chronic kidney disease) stage 3, GFR 30-59 ml/min; Chronic systolic dysfunction of left ventricle Social History Tobacco Use Types Packs/Day Years [...] encounter Results * (ABNORMAL) BASIC METABOLIC PANEL (08/01/2016 11:54 AM EST) GLUCOSE 262(H) 70 - 100 mg/dL 08/01/2016 5:59 PM [facility] Comment: Reference range applicable to fasting specimens only Based on recommendations from the ADA and AACE, the fasting glucose reference range has been changed to 70-100 mg/dL. ??This change is effective February 07, 2010 BUN 49(H) 5 - 25 mg/dL 08/01/2016 5:59 PM [facility] CREAT 1.6(H) 0.7 - 1.5 mg/dL 08/01/2016 5:59 PM [facility] GFR 33(L) >60 08/01/2016 5:59 PM [facility] Comment: If patient is -Faroese, multiply result by 1.21 Chronic Kidney Disease: < 60 ml/min/1.73 square meters Kidney Failure: < 15 ml/min/1.73 square meters Sodium 140 133 - 145 mEq/L 08/01/2016 5:59 PM [facility] Potassium 5.4 3.5 - 5.5 mEq/L 08/01/2016 5:59 PM EST [facility] Chloride 97 96 - 108 mEq/L 08/01/2016 5:59 PM EST [facility] CO2 29.5 21.0 - 32.0 mEq/L 08/01/2016 5:[address] [facility] CALCIUM 10.7(H) 8.5 - 10.5 mg/dL 08/01/2016 8:01 PM EST [facility] Comment:CONFIRMED. 08/01/2016 11:5 4 AM EST 08/01/2016 11:54 AM EST Danielle Almanza PA-C LAB [facility] [address] [place] [address] documented in this encounter Visit Diagnoses Diagnosis CKD (chronic kidney disease) stage 3, GFR 30-59 ml/min (HCC) Chronic kidney disease, Stage III (moderate) Chronic systolic dysfunction of left ventricle Heart disease, unspecified documented in this encounter Care Teams Demand Planner Relationship Specialty Start Date End Date Hawa Torres MD PCP - General Internal Medicine 09/09/15 12/19/20 Rancho Matthews MD [address] [place] [address]294 PCP - General Internal Medicine 12/20/20 03/22/21 [facility], Pcp [address] [place] [address]396 PCP - General Internal Medicine 03/23/21 04/11/21 Rancho Matthews MD [address] [place] [address] 7[address]81 PCP - General Internal Medicine 04/12/21 04/12/21 Hawa Torres MD [address] [place] [address] 31176 PCP - General Internal Medicine 04/13/21 06/05/21 Hawa Torres MD [address] [place] [address] 42995 PCP - General Internal Medicine 06/06/21 08/07/21 [facility], Pcp [address] [place] [address] 45023 PCP - General Internal Medicine 08/08/21 10/27/21 Hawa Torres MD PCP - General Internal Medicine 10/28/21 04/11/22 [facility], Pcp [address] [place] [address] 63073 PCP - General Internal Medicine 04/12/22 05/01/22 Hawa Torres MD [address] [place] [address] 06437 PCP - General Internal Medicine 05/02/22 05/21/22 Melonie Sorensen DO [address] [place] [address] 41727 PCP - General Internal Medicine 05/22/22 09/07/22 [facility], Pcp [address] [place] [address] 56409 PCP - General Internal Medicine 09/08/22 11/08/22 Hawa Torres MD [address] [place] [address] 80349 PCP - General Internal Medicine 11/09/22 Taya Gonzales MD Specialist Cardiology 11/01/20 Chandan Breen PA Specialist Cardiology 11/01/20 02/20/24 Jessi Erwin, KITTY [address] [place] [address] Specialist Nurse Practitioner [facility] 02/21/24 documented as of this encounter
--- OUTSIDE RECORDS SUMMARY | 2024-11-04 13:52 | XMS_ITS | Encounter Summary ---
Author Organization [facility] Address [address] [place] [address] Care Team Providers Care Oxidation Engineer Name Role Phone Hawa Torres MD Primary Care Provider Unavaila Taya [place] MD Unavailable [phone] Chandan Breen Unavailable Rancho Matthews MD Primary Care Provider [phone] [facility], Pcp Primary Care Provider UnavailRancho Brock MD Primary Care Provider [phone] Hawa Torres MD Primary Care Provider Unavaila [...] MD Primary Care Provider Unavaila Jessi Cagle [facility] Unavailable [phone] Encounter Details Date Type Department Care Team Description 04/24/2016 Orders Only Adult Medicine [address] [address] Hawa Torres MD Hypothyroidism, unspecified hypothyroidism type (Primary Dx) Social History Tobacco Use [...] encounter Results * (ABNORMAL) THYROID PROFILE W/TSH (04/24/2016 11:19 AM EDT) TSH CASCADE 6.16(H) 0.40 - 4.00 uIU/ml 04/24/2016 3:57 PM EDT [facility] 04/24/2016 11:1 9 AM EDT 04/24/2016 11:19 AM EDT Hawa Torres MD LAB [address] documented in this encounter Visit Diagnoses Diagnosis Hypothyroidism, unspecified hypothyroidism type- Primary documented in this encounter Care Teams Oxidation Engineer Relationship Specialty Start Date End Date Hawa Torres MD PCP - General Internal Medicine 09/09/15 12/19/20 Rancho Matthews MD [address] [place] [address] PCP - General Internal Medicine 12/20/20 03/22/21 [facility], [address] [address] PCP - General Internal Medicine 03/23/21 04/11/21 Rancho Matthews MD [address] [place] [address] 80216 PCP - General Internal Medicine 04/12/21 04/12/21 Hawa Torres MD [address] [place] [address]45 PCP - General Internal Medicine 04/13/21 06/05/21 Hawa Torres MD [address] [place] [address] PCP - General Internal Medicine 06/06/21 08/07/21 [facility], Pcp [address] [place] [address] PCP - General Internal Medicine 08/08/21 10/27/21 Hawa Torres MD PCP - General Internal Medicine 10/28/21 04/11/22 [facility], Pcp [address] [place] [address]149 PCP - General Internal Medicine 04/12/22 05/01/22 Hawa Torres MD [address] [place] [address] PCP - General Internal Medicine 05/02/22 05/21/22 Melonie Sorensen, [address] [place] [address] PCP - General Internal Medicine 05/22/22 09/07/22 [facility], Pcp [address] [place] [address] PCP - General Internal Medicine 09/08/22 11/08/22 Hawa Torres MD [address] [place] [address] PCP - General Internal Medicine 11/09/22 Taya Gonzales MD Specialist Cardiology 11/01/20 Chandan Breen PA Specialist Cardiology 11/01/20 02/20/24 Jessi Erwin DNP [address] [place] [address]642 Specialist Nurse Practitioner [facility] 02/21/24 documented as of this encounter
--- OUTSIDE RECORDS SUMMARY | 2024-11-04 13:52 | XMS_ITS | Encounter Summary ---
Author Organization [facility] Address [address] [place] [address] Care Team Providers Care Delivery And Mail Sorter Name Role Phone Taya Gonzales MD Unavailable [phone] Chandan Breen Unavailable + Rancho Matthews MD Primary Care Provider [phone] [facility], Pcp Primary Care Provider UnavailRancho Brock MD Primary Care Provider [phone] Hawa Torres MD Primary Care Provider Unavaila Hawa Maddxo MD Primary Care Provider Unavaila ble [facility], Pcp Primary Care Provider UnavailHawa Barron MD Primary Care Provider Unavaila ble [facility], Pcp Primary Care Provider UnavailHawa Barron MD Primary Care Provider Unavaila ble Melonie Sorensen DO Primary Care Pro vider Unavailable [facility], Pcp Primary Care Provider UnavailHawa Barron MD Primary Care Provider Unavaila ble Jessi Erwin [facility] Unavailable [phone] Encounter Details Date Type Department Care Team Description 02/25/2021 Hospital Medical Records [address] [place] [address] Social History Tobacco Use Types Packs/Day Years [...] Name Priority Date/Time Associated Diagnosis Comments OUTSIDE LAB Routine 03/04/2021 OUTSIDE ECHO Routine 02/28/[address] Routine 02/27/2021 OUTSIDE EKG Routine 02/25/2021 OUTSIDE PLAIN FILM Routine 02/25/2021 documented in this encounter Results * OUTSIDE LAB (03/04/2021) Provider Default LAB * OUTSIDE ECHO (02/28/2021) Provider Default CARDIOLOGY * OUTSIDE CT (02/27/2021) Provider Default RADIOLOGY * OUTSIDE PLAIN FILM (02/25/2021) Provider Default RADIOLOGY * OUTSIDE EKG (02/25/2021) Provider Default CARDIOLOGY documented in this encounter Visit Diagnoses Not on filedocumented in this encounter Care Teams Delivery And Mail Sorter Relationship Specialty Start Date End Date Rancho Matthews MD [address] [place] [address]22 PCP - General Internal Medicine 12/20/20 03/22/21 [facility], [address] [address] PCP - General Internal Medicine 03/23/21 04/11/21 Rancho Matthews MD [address] [place] [address] 8[address]39 PCP - General Internal Medicine 04/12/21 04/12/21 Hawa Torres MD [address] [place] [address] 90240 PCP - General Internal Medicine 04/13/21 06/05/21 Hawa Torres MD [address] [place] [address] 29453 PCP - General Internal Medicine 06/06/21 08/07/21 [facility], Pcp [address] [place] [address] 70748 PCP - General Internal Medicine 08/08/21 10/27/21 Hawa Torres MD [address] [place] [address] 89753 PCP - General Internal Medicine 10/28/21 04/11/22 [facility], Pcp [address] [place] [address] 58685 PCP - General Internal Medicine 04/12/22 05/01/22 Hawa Torres MD [address] [place] [address] 50382 PCP - General Internal Medicine 05/02/22 05/21/22 Melonie Sorensen, DO [address] [place] [address] 12887 PCP - General Internal Medicine 05/22/22 09/07/22 [facility], Pcp [address] [place] [address] 37245 PCP - General Internal Medicine 09/08/22 11/08/22 Hawa Torres MD [address] [place] [address] 00342 PCP - General Internal Medicine 11/09/22 Taya Gonzales MD Specialist Cardiology 11/01/20 Chandan Breen PA Specialist Cardiology 11/01/20 02/20/24 Jessi Erwin DNP [address] [place] [address], [place] [address] Specialist Nurse Practitioner [facility] 02/21/24 documented as of this encounter
--- OUTSIDE RECORDS SUMMARY | 2024-11-04 13:52 | XMS_ITS | Encounter Summary ---
Author Organization [facility] Address [address] [place] [address] Care Team Providers Care Supervisor Finishing Department Name Role Phone Hawa Torres MD Primary Care Provider UnavailTaya Lira MD Unavailable [phone] Chandan Breen Unavailable + Rancho Matthews MD Primary Care Provider [phone] [facility], Pcp Primary Care Provider UnavailRancho Brock MD Primary Care Provider + Hawa Torres MD Primary Care Provider Unavaila Hawa Maddox MD Primary Care Provider Unavaila elpidio [facility], Pcp Primary Care Provider Hawa Zavala MD Primary Care Provider Unavaila ble [facility], Pcp Primary Care Provider Hawa Zavala MD Primary Care Provider Unavaila Melonie Rojas DO Primary Care Pro vider Unavailable Community, Pcp Primary Care Provider Hawa Zavala MD Primary Care Provider Unavaila Jessi Cagle [facility] Unavailable + Encounter Details Date Type Department Care Team Description 11/04/2020 Pt. Non Urgent Medical Question Cardio PVC POC 154 [address] [facility] [address] [place] [address] Taya Gonzales MD [address] [place] [address] [phone] Social History Tobacco Use Types Packs/Day Years [...] filedocumented in this encounter Care Teams Supervisor Finishing Department Relationship Specialty Start Date End Date Hawa Torres MD PCP - General Internal Medicine 09/09/15 12/19/20 Rancho Matthews MD [address] [place] [address]057 PCP - General Internal Medicine 12/20/20 03/22/21 [facility], [address] [address] PCP - General Internal Medicine 03/23/21 04/11/21 Rancho Matthews MD [address] [place] [address] 72394 PCP - General Internal Medicine 04/12/21 04/12/21 Hawa Torres MD [address] [place] [address] 97383 PCP - General Internal Medicine 04/13/21 06/05/21 Hawa Torres MD [address] [place] [address] 55378 PCP - General Internal Medicine 06/06/21 08/07/21 [facility], [address] [address] PCP - General Internal Medicine 08/08/21 10/27/21 Hawa Torres MD PCP - General Internal Medicine 10/28/21 04/11/22 [facility], Pcp [address] [place] [address] 92841 PCP - General Internal Medicine 04/12/22 05/01/22 Hawa Torres MD [address] [place] [address] 04225 PCP - General Internal Medicine 05/02/22 05/21/22 Melonie Sorensen, [address] [place] [address] 41286 PCP - General Internal Medicine 05/22/22 09/07/22 [facility], Pcp [address] [place] [address]652 PCP - General Internal Medicine 09/08/22 11/08/22 Hawa Torres MD [address] [place] [address] 14948 PCP - General Internal Medicine 11/09/22 Taya Gonzales MD Specialist Cardiology 11/01/20 Chandan Breen PA Specialist Cardiology 11/01/20 02/20/24 Jessi Erwin DNP [address] [place] [address] Specialist Nurse Practitioner [facility] 02/21/24 documented as of this encounter
--- OUTSIDE RECORDS SUMMARY | 2024-11-04 13:52 | XMS_ITS | Encounter Summary ---
Author Organization [facility] Address [address] [place] [address] Care Team Providers Care Photograph Enlarger Name Role Phone Taya Gonzales MD Unavailable [phone] Chandan Breen Unavailable Rancho Matthews MD Primary Care Provider [phone] [facility] [...] Primary Care Provider Unavaila ble Jessi Erwin [facility] Unavailable [phone] Encounter Details Date Type Department Care Team Description 03/01/2021 Pt. Non Urgent Medical Question Pulmonology - [place] [address] [facility] [address] [place] [address] Marcela Gunter FNP [address] [place] [address] Social History Tobacco Use Types Packs/Day Years [...] encounter Miscellaneous Notes * Telephone Encounter - Marcela Gunter, BERNARDINO - 03/01/2021 12:34 PM EDTFrom: Dana Grant To: Alistair Gunter Sent: 03/01/2021 12:16 PM EDT Subject: Hospital Stay Update Ary, My mom has been at [facility] since 02/25/21. We arrived at the ER and eventually admitted due to retaining excess water, which was also causing fluid build up in her lungs. As of today, 03/01 mom is still at [facility] and making small strides toward breathing without a bipap machine due to 96 Co2 levels. My intention for contacting you is to prepare to eventually have her back home. Since she has chronic conditions that would benefit from sitting and sleeping upright, I wanted to request that you and/or her medical team complete a [facility] Prior Authorization form that will help aide us in obtaining the appropriate bed for her. See link for form: https://www.[facility].gov/doc/akimf-[email or web address]-pa-1/download Her Medical team at [facility] is Dr. Oneida Hernandez, Dr. Alfredo and Dr. Porras. Please let me know if you need additional information. Thank you for all you do. documented in this encounter Plan of Treatment Not on file documented as of this encounter Visit Diagnoses Not on filedocumented in this encounter Care Teams Photograph Enlarger Relationship Specialty Start Date End Date Rancho Matthews MD [address] [place] [address], [place] [address] PCP - General Internal Medicine 12/20/20 03/22/21 [facility], Pcp [address] [place] [address], [place] [address] PCP - General Internal Medicine 03/23/21 04/11/21 Rancho Matthews MD [address] [place] [address], [place] [address] PCP - General Internal Medicine 04/12/21 04/12/21 Hawa Torres MD [address] [place] [address], [place] [address] PCP - General Internal Medicine 04/13/21 06/05/21 Hawa Torres MD [address] [place] [address], [place] [address] PCP - General Internal Medicine 06/06/21 08/07/21 [facility], Pcp [address] [place] [address], [place] [address] PCP - General Internal Medicine 08/08/21 10/27/21 Hawa Torres MD [address] [place] [address], [place] [address] PCP - General Internal Medicine 10/28/21 04/11/22 [facility], Pcp [address] [place] [address], [place] [address] PCP - General Internal Medicine 04/12/22 05/01/22 Hawa Torres MD [address] [place] [address], [place] [address] PCP - General Internal Medicine 05/02/22 05/21/22 Melonie Sorensen, [address] [place] [address], [place] [address] PCP - General Internal Medicine 05/22/22 09/07/22 [facility], Pcp [address] [place] [address], [place] [address] PCP - General Internal Medicine 09/08/22 11/08/22 Hawa Torres MD [address] [place] [address] PCP - General Internal Medicine 11/09/22 Taya Gonzales MD Specialist Cardiology 11/01/20 Chandan Breen PA Specialist Cardiology 11/01/20 02/20/24 Jessi Erwin, [address] [address] Specialist Nurse Practitioner Family 02/21/24 documented as of this encounter
--- OUTSIDE RECORDS SUMMARY | 2024-11-04 13:52 | XMS_ITS | Encounter Summary ---
Author Organization [facility] Address [address] [place] [address] Care Team Providers Care Manager Transplant Name Role Phone Taya Gonzales MD Unavailable [phone] Chandan Breen Unavailable + Rancho Matthews MD Primary Care Provider [phone] [facility], Pcp Primary Care Provider UnavailRancho Brock MD Primary Care Provider [phone] Hawa Torres MD Primary Care Provider Unavaila Hawa Maddox MD Primary Care Provider Unavaila ble [facility], Pcp Primary Care Provider UnavailHawa Barron MD Primary Care Provider Unavaila ble [facility], Pcp Primary Care Provider UnavailHawa Barron MD Primary Care Provider Unavaila ble Melonie Sorensen DO Primary Care Pro vider Unavailable [facility], Pcp Primary Care Provider UnavailHawa Barron MD Primary Care Provider Unavaila ble Jessi Erwin [facility] Unavailable [phone] Reason for Visit * Reason Comments E-prescribe Rx Request carvedilol Encounter Details Date Type Department Care Team Description 02/18/2021 Refill Cardio PVC POC [phone] [facility] [address] [place] [address] Taya Gonzales MD [address] [place] [address] [phone] E-prescribe Rx Request (carvedilol) Social History Tobacco Use Types Packs/Day Years [...] encounter Miscellaneous Notes * Telephone Encounter - Ashleigh Givens - 02/18/2021 4:41 PM EDT Carvedilol 12.5 mg 2 tabs po bid #112 tabs 1 rf sent electronically. Confirmed [place] take 12.5 mg 2 tabs po bid. documented in this encounter Plan of Treatment Not on file documented as of this encounter Visit Diagnoses Not on filedocumented in this encounter Care Teams Manager Transplant Relationship Specialty Start Date End Date Rancho Matthews MD [address] [place] [address] 29705 PCP - General Internal Medicine 12/20/20 03/22/21 [facility], Pcp [address] [place] [address] 95463 PCP - General Internal Medicine 03/23/21 04/11/21 Rancho Matthews MD [address] [place] [address] 36675 PCP - General Internal Medicine 04/12/21 04/12/21 Hawa Torres MD [address] [place] [address] 70022 PCP - General Internal Medicine 04/13/21 06/05/21 Hawa Torres MD [address] [place] [address] 72508 PCP - General Internal Medicine 06/06/21 08/07/21 [facility], Pcp [address] [place] [address] 11338 PCP - General Internal Medicine 08/08/21 10/27/21 Hawa Torres MD [address] [place] [address] 33041 PCP - General Internal Medicine 10/28/21 04/11/22 [facility], Pcp [address] [place] [address] 00064 PCP - General Internal Medicine 04/12/22 05/01/22 Hawa Torres MD [address] [place] [address] 75175 PCP - General Internal Medicine 05/02/22 05/21/22 Melonie Sorensen, DO [address] [place] [address] 21762 PCP - General Internal Medicine 05/22/22 09/07/22 [facility], Pcp [address] [place] [address] 85074 PCP - General Internal Medicine 09/08/22 11/08/22 Hawa Torres MD [address] [place] [address] 03974 PCP - General Internal Medicine 11/09/22 Taya Gonzales MD Specialist Cardiology 11/01/20 Chandan Breen PA Specialist Cardiology 11/01/20 02/20/24 Jessi Erwin DNP [address] [place] [address] 94468 Specialist Nurse Practitioner [facility] 02/21/24 documented as of this encounter
--- OUTSIDE RECORDS SUMMARY | 2024-11-04 13:52 | XMS_ITS | Encounter Summary ---
Author Organization [facility] Address [address] [place] [address] Care Team Providers Care Sintering Plant Supervisor Name Role Phone Taya Gonzales MD Unavailable [phone] Chandan Breen Unavailable Rancho Matthews MD Primary Care Provider [phone] [facility], Pcp Primary Care Provider UnavailRancho Brock MD Primary Care Provider [phone] Hawa Torres MD Primary Care Provider Unavaila Hawa Maddox MD Primary Care Provider Unavaila ble [facility], Pcp Primary Care Provider UnavailHawa Barron MD Primary Care Provider Unavaila ble [facility], Pcp Primary Care Provider UnavailHawa Barron MD Primary Care Provider Unavaila ble Melonie Sorensen DO Primary Care Pro vider Unavailable [facility], Pcp Primary Care Provider UnavailHawa Barron MD Primary Care Provider Unavaila ble Jessi Erwin [facility] Unavailable [phone] Reason for Visit * Reason Onset Date Comments Faxed Order 12/21/2020 Encounter Details Date Type Department Care Team Description 12/21/2020 Telephone Adult Medicine [address] [phone] Rancho Matthews MD [address] [place] [address] [phone] Faxed Order Social History Tobacco Use Types [...] encounter Miscellaneous Notes * Telephone Encounter - Alyssia Up - 12/21/2020 1:09 PM EDT Faxed order received pls sign and faxed back documented in this encounter Plan of Treatment Not on file documented as of this encounter Visit Diagnoses Not on filedocumented in this encounter Care Teams Sintering Plant Supervisor Relationship Specialty Start Date End Date Rancho Matthews MD [address] [place] [address] 66561 PCP - General Internal Medicine 12/20/20 03/22/21 [facility], Pcp [address] [place] [address] 88069 PCP - General Internal Medicine 03/23/21 04/11/21 Rancho Matthews MD [address] [place] [address] 26441 PCP - General Internal Medicine 04/12/21 04/12/21 Hawa Torres MD [address] [place] [address] 09499 PCP - General Internal Medicine 04/13/21 06/05/21 Hawa Torres MD [address] [place] [address] 92532 PCP - General Internal Medicine 06/06/21 08/07/21 [facility], Pcp [address] [place] [address] 63864 PCP - General Internal Medicine 08/08/21 10/27/21 Hawa Torres MD [address] [place] [address] 30001 PCP - General Internal Medicine 10/28/21 04/11/22 [facility], Pcp [address] [place] [address] 13153 PCP - General Internal Medicine 04/12/22 05/01/22 Hawa Torres MD [address] [place] [address] 69767 PCP - General Internal Medicine 05/02/22 05/21/22 Melonie Sorensen, DO [address] [place] [address] 46533 PCP - General Internal Medicine 05/22/22 09/07/22 [facility], Pcp [address] [place] [address] 18553 PCP - General Internal Medicine 09/08/22 11/08/22 Hawa Torres MD [address] [place] [address] 52201 PCP - General Internal Medicine 11/09/22 Taya Gonzales MD Specialist Cardiology 11/01/20 Chandan Breen PA Specialist Cardiology 11/01/20 02/20/24 Jessi Erwin DNP [address] [place] [address] 81732 Specialist Nurse Practitioner Family 02/21/24 documented as of this encounter
--- OUTSIDE RECORDS SUMMARY | 2024-11-04 13:52 | XMS_ITS | Encounter Summary ---
Author Organization [facility] Address [address] [place] [address] Care Team Providers Care Comb Capper Name Role Phone Hawa Torres MD Primary Care Provider Unavaila Taya Covington MD Unavailable [phone] Chandan Breen Unavailable + Rancho Matthews MD Primary Care Provider [phone] [facility], Pcp Primary Care Provider UnavailRancho Brock MD Primary Care Provider [phone] Hawa Torres MD Primary Care Provider Unavaila Hawa Maddox MD Primary Care Provider Unavaila ble [facility], Pcp Primary Care Provider UnavailHawa Barron MD Primary Care Provider Unavaila ble [facility], Pcp Primary Care Provider Hawa Zavala MD Primary Care Provider Unavaila ble eMlonie Sorensen DO Primary Care Pro vider Unavailable [facility], Pcp Primary Care Provider Hawa Zavala MD Primary Care Provider Unavaila Jessi Cagle [facility] Unavailable [phone] Reason for Visit * Reason Onset Date Comments hospital follow up 03/16/2016 [facility] Encounter Details Date Type Department Care Team Description 03/16/2016 Telephone Cardiology - [place] [address] [place] [address] [phone] Taya Gonzales MD [address] [place], [place] [phone] hospital follow up ([facility]) Social History Tobacco Use Types Packs/Day Years [...] encounter Miscellaneous Notes * Telephone Encounter - Janae Su L.P.N. - 03/16/2016 11:54 AM EDT 2-[address] w[address] Jessi on Dr Christian michel. * Telephone Encounter - Christine Farrell - 03/16/2016 11:17 AM EDT Calling to schedule [facility] f/u. Mid level ok and time frame please? Thank you documented in this encounter Plan of Treatment Not on file documented as of this encounter Visit Diagnoses Not on filedocumented in this encounter Care Teams Comb Capper Relationship Specialty Start Date End Date Hawa Torres MD PCP - General Internal Medicine 09/09/15 12/19/20 Rancho Matthews MD [address] [place] [address] 50609 PCP - General Internal Medicine 12/20/20 03/22/21 [facility], [address] [address] PCP - General Internal Medicine 03/23/21 04/11/21 Rancho Matthews MD [address] [place] [address] 40177 PCP - General Internal Medicine 04/12/21 04/12/21 Hawa Torres MD [address] [place] [address] 37903 PCP - General Internal Medicine 04/13/21 06/05/21 Hawa Torres MD [address] [place] [address] 37198 PCP - General Internal Medicine 06/06/21 08/07/21 [facility], Pcp [address] [place] [address] 61282 PCP - General Internal Medicine 08/08/21 10/27/21 Hawa Torres MD PCP - General Internal Medicine 10/28/21 04/11/22 [facility], Pcp [address] [place] [address] 82323 PCP - General Internal Medicine 04/12/22 05/01/22 Hawa Torres MD [address] [place] [address] 97085 PCP - General Internal Medicine 05/02/22 05/21/22 Melonie Sorensen, DO [address] [place] [address] 30359 PCP - General Internal Medicine 05/22/22 09/07/22 [facility], Pcp [address] [place] [address] 58509 PCP - General Internal Medicine 09/08/22 11/08/22 Hawa Torres MD [address] [place] [address] 30771 PCP - General Internal Medicine 11/09/22 Taya Gonzales MD Specialist Cardiology 11/01/20 Chandan Breen PA Specialist Cardiology 11/01/20 02/20/24 Jessi Erwin DNP [address] [place] [address] 14595 Specialist Nurse Practitioner Family 02/21/24 documented as of this encounter
--- OUTSIDE RECORDS SUMMARY | 2024-11-04 13:52 | XMS_ITS | Encounter Summary ---
Author Organization [facility] Address [address] [place] [address] Care Team Providers Care Jewelry Cutter Name Role Phone Taya Gonzales MD Unavailable [phone] Chandan Breen Unavailable + Rancho Matthews MD Primary Care Provider [phone] [facility], Pcp Primary Care Provider UnavailRancho Brock MD Primary Care Provider [phone] Hawa Torres MD Primary Care Provider Unavaila Hawa Maddox MD Primary Care Provider Unavaila ble [facility], Pcp Primary Care Provider UnavailHawa Barron MD Primary Care Provider Unavaila ble [facility], Pcp Primary Care Provider UnavailHawa Barron MD Primary Care Provider Unavaila ble Melonie Sorensen DO Primary Care Pro vider Unavailable [facility], Pcp Primary Care Provider UnavailHawa Barron MD Primary Care Provider Unavaila ble Jessi Erwin [facility] Unavailable [phone] Encounter Details Date Type Department Care Team Description 12/31/2020 Home Health Certification Medical Records [address] [place] [address] Home, [facility] [place] [address] Social History Tobacco Use Types Packs/Day Years [...] or suspected to have Coronavirus / COVID-19? Unable to assess 12/28/2020 8:15 AM EDT documented as of this encounter Plan of Treatment Not on file documented as of this encounter Visit Diagnoses Not on filedocumented in this encounter Care Teams Jewelry Cutter Relationship Specialty Start Date End Date Rancho Matthews MD [address] [place] [address] PCP - General Internal Medicine 12/20/20 03/22/21 [facility], Pcp [address] [place] [address] 73241 PCP - General Internal Medicine 03/23/21 04/11/21 Rancho Matthews MD [address] [place] [address] 06788 PCP - General Internal Medicine 04/12/21 04/12/21 Hawa Torres MD [address] [place] [address] 00454 PCP - General Internal Medicine 04/13/21 06/05/21 Hawa Torres MD [address] [place] [address] 22013 PCP - General Internal Medicine 06/06/21 08/07/21 [facility], Pcp [address] [place] [address] 90432 PCP - General Internal Medicine 08/08/21 10/27/21 Hawa Torres MD [address] [place] [address] 26990 PCP - General Internal Medicine 10/28/21 04/11/22 [facility], Pcp [address] [place] [address] 08397 PCP - General Internal Medicine 04/12/22 05/01/22 Hawa Torres MD [address] [place] [address] 48149 PCP - General Internal Medicine 05/02/22 05/21/22 Melonie Sorensen, DO [address] [place] [address] 16713 PCP - General Internal Medicine 05/22/22 09/07/22 [facility], Pcp [address] [place] [address] 68362 PCP - General Internal Medicine 09/08/22 11/08/22 Hawa Torres MD [address] [place] [address] 34315 PCP - General Internal Medicine 11/09/22 Taya Gonzales MD Specialist Cardiology 11/01/20 Chandan Breen PA Specialist Cardiology 11/01/20 02/20/24 Jessi Erwin, KITTY [address] [place] [address] 15703 Specialist Nurse Practitioner [facility] 02/21/24 documented as of this encounter
--- OUTSIDE RECORDS SUMMARY | 2024-11-04 13:52 | XMS_ITS | Encounter Summary ---
Author Organization [facility] Address [address] [place] [address] Care Team Providers Care Auto Vinyl Top Installer Name Role Phone Hawa Torres MD Primary Care Provider Unavaila Taya Covington MD Unavailable [phone] Chandan Breen Unavailable + Rancho Matthews MD Primary Care Provider + [facility] Primary Care Provider UnavailRancho Brock [...] Rojas DO Primary Care Pro vider Unavailable [facility], [facility]cp Primary Care Provider Hawa Zavala MD Primary Care Provider Unavaila Jessi Cagle [facility] Unavailable + [phone] Encounter Details Date Type Department Care Team Description 12/24/2019 Pt. Non Urgent Medical Question Medicine/Pediatrics - [address] [phone] Hawa Torres MD Social History Tobacco Use [...] as of this encounter Progress Notes * Radha Sorto R.N. - 12/24/2019 3:32 PM EDTFrom: Dana Grant To: Hawa Torres MD Sent: 12/24/2019 11:10 AM EDT Subject: refill I need a glipizide 5mg refill [facility] [address] [facility] [facility] [address] Thank you, Stay Healthy! documented in this encounter Plan of Treatment Not on file documented as of this encounter Visit Diagnoses Not on filedocumented in this encounter Care Teams Auto Vinyl Top Installer Relationship Specialty Start Date End Date Hawa Torres MD PCP - General Internal Medicine 09/09/15 12/19/20 Rancho Matthews MD [address] [place] [address] 31768 PCP - General Internal Medicine 12/20/20 03/22/[address] [address] PCP - General Internal Medicine 03/23/21 04/11/21 Rancho Matthews MD [address] [place] [address] 02846 PCP - General Internal Medicine 04/12/21 04/12/21 Hawa Torres MD [address] [place] [address] 68088 PCP - General Internal Medicine 04/13/21 06/05/21 Hawa Torres MD [address] [place] [address] 48817 PCP - General Internal Medicine 06/06/21 08/07/21 [facility]cp [address] [place] [address] PCP - General Internal Medicine 08/08/21 10/27/21 Hawa Torres MD PCP - General Internal Medicine 10/28/21 04/11/22 [facility], Pcp [address] [place] [address] PCP - General Internal Medicine 04/12/22 05/01/22 Hawa Torres MD [address] [place] [address] 48593 PCP - General Internal Medicine 05/02/22 05/21/22 Melonie Sorensen DO [address] [place] [address] 34199 PCP - General Internal Medicine 05/22/22 09/07/22 [facility], Pcp [address] [place] [address] 74358 PCP - General Internal Medicine 09/08/22 11/08/22 Hawa Torres MD [address] [place] [address] 49866 PCP - General Internal Medicine 11/09/22 Taya Gonzales MD Specialist Cardiology 11/01/20 Chandan Breen PA Specialist Cardiology 11/01/20 02/20/24 Jessi Erwin DNP [address] [place] [address] 39495 Specialist Nurse Practitioner Family 02/21/24 documented as of this encounter
--- OUTSIDE RECORDS SUMMARY | 2024-11-04 13:52 | XMS_ITS | Encounter Summary ---
Author Organization [facility] Address [address] [place] [address] Care Team Providers Care Medical Services Assistant Name Role Phone Hawa Torres MD Primary Care Provider UnavailTaya Lira MD Unavailable [phone] Chandan Breen Unavailable Rancho Matthews MD Primary Care Provider + [facility] Primary Care Provider UnavailRancho Brock MD Primary Care Provider [phone] Hawa Torres MD Primary Care Provider Unavaila Hawa Maddox MD Primary Care Provider Unavaila elpidio [facility], Pcp Primary Care Provider UnavailHawa Barron MD Primary Care Provider Unavaila ble [facility], Pcp Primary Care Provider Hawa Zavala MD Primary Care Provider Unavaila Melonie Rojas DO Primary Care Pro vider Unavailable [facility], Pcp Primary Care Provider Hawa Zavala MD Primary Care Provider Unavaila Jessi Cagle [facility] Unavailable [phone] Encounter Details Date Type Department Care Team Description 04/16/2019 Hospital Medical Records [address] [place] [address] Kilo Valero MD Social History Tobacco Use Types Packs/Day [...] on filedocumented in this encounter Care Teams Medical Services Assistant Relationship Specialty Start Date End Date Hawa Torres MD PCP - General Internal Medicine 09/09/15 12/19/20 Rancho Matthews MD [address] [place] [address] PCP - General Internal Medicine 12/20/20 03/22/21 [facility], Pcp [address] [place] [address] 45779 PCP - General Internal Medicine 03/23/21 04/11/21 Rancho Matthews MD [address] [place] [address] 73188 PCP - General Internal Medicine 04/12/21 04/12/21 Hawa Torres MD [address] [place] [address] 82247 PCP - General Internal Medicine 04/13/21 06/05/21 Hawa Torres MD [address] [place] [address] 65706 PCP - General Internal Medicine 06/06/21 08/07/21 [facility], Pcp [address] [place] [address] 09900 PCP - General Internal Medicine 08/08/21 10/27/21 Hawa Torres MD PCP - General Internal Medicine 10/28/21 04/11/22 [facility], Pcp [address] [place] [address] 54429 PCP - General Internal Medicine 04/12/22 05/01/22 Hawa Torres MD [address] [place] [address] 97906 PCP - General Internal Medicine 05/02/22 05/21/22 Melonie Sorensen DO [address] [place] [address] 54138 PCP - General Internal Medicine 05/22/22 09/07/22 [facility], Pcp [address] [place] [address] 87217 PCP - General Internal Medicine 09/08/22 11/08/22 Hawa Torres MD [address] [place], [place] 6384[address] PCP - General Internal Medicine 11/09/22 Taya Gonzales MD Specialist Cardiology 11/01/20 Chandan Breen PA Specialist Cardiology 11/01/20 02/20/24 Jessi Erwin, KITTY [address] [place] [address] 03590 Specialist Nurse Practitioner [facility] 02/21/24 documented as of this encounter
--- OUTSIDE RECORDS SUMMARY | 2024-11-04 13:52 | XMS_ITS | Encounter Summary ---
Author Organization [facility] Address [address] [place] [address] Care Team Providers Care Home Assessment Nurse Name Role Phone Taya Gonzales MD Unavailable [phone] Chandan Breen Unavailable Rancho Matthews MD Primary Care Provider [phone] [facility], Pcp Primary Care Provider UnavailRancho Brock MD Primary Care Provider [phone] Hawa Torres MD Primary Care Provider Unavaila Hawa Maddox MD Primary Care Provider Unavaila ble [facility], Pcp Primary Care Provider UnavailHawa Barron MD Primary Care Provider Unavaila ble [facility], Pcp Primary Care Provider UnavailaHwa Barron MD Primary Care Provider Unavaila ble Melonie Sorensen DO Primary Care Pro vider Unavailable [facility], Pcp Primary Care Provider UnavailHawa Barron MD Primary Care Provider Unavaila ble Jessi Erwin [facility] Unavailable [phone] Encounter Details Date Type Department Care Team Description 03/01/2021 Pt. Non Urgent Medical Question Nephrology - [place] [address] [place] [address] Mc Barragan MD [address] [place] [address] [phone] Social History Tobacco Use Types Packs/Day Years [...] on filedocumented in this encounter Care Teams Home Assessment Nurse Relationship Specialty Start Date End Date Rancho Matthews MD [address] [place] [address] PCP - General Internal Medicine 12/20/20 03/22/21 [facility], Pcp [address] [place] [address] 03632 PCP - General Internal Medicine 03/23/21 04/11/21 Rancho Matthews MD [address] [place] [address] 15598 PCP - General Internal Medicine 04/12/21 04/12/21 Hawa Torres MD [address] [place] [address] 42191 PCP - General Internal Medicine 04/13/21 06/05/21 Hawa Torres MD [address] [place] [address] 06089 PCP - General Internal Medicine 06/06/21 08/07/21 [facility], Pcp [address] [place] [address] 83012 PCP - General Internal Medicine 08/08/21 10/27/21 Hawa Torres MD [address] [place] [address] 69263 PCP - General Internal Medicine 10/28/21 04/11/22 [facility], Pcp [address] [place] [address] 65450 PCP - General Internal Medicine 04/12/22 05/01/22 Hawa Torres MD [address] [place] [address] 63889 PCP - General Internal Medicine 05/02/22 05/21/22 Melonie Sorensen DO [address] [place] [address] 24139 PCP - General Internal Medicine 05/22/22 09/07/22 [facility], Pcp [address] [place] [address] 73036 PCP - General Internal Medicine 09/08/22 11/08/22 Hawa Torres MD [address] [place] [address] 60615 PCP - General Internal Medicine 11/09/22 Taya Gonzales MD Specialist Cardiology 11/01/20 Chandan Breen PA Specialist Cardiology 11/01/20 02/20/24 Jessi Erwin DNP [address] [place] [address] 51737 Specialist Nurse Practitioner [facility] 02/21/24 documented as of this encounter
--- OUTSIDE RECORDS SUMMARY | 2024-11-04 13:52 | XMS_ITS | Encounter Summary ---
Author Organization [facility] Address [address] [place] [address] Care Team Providers Care Transport Tech Name Role Phone Hawa Torres MD Primary Care Provider UnavailTaya Lira MD Unavailable +[phone] Chandan Breen Unavailable + Rancho Matthews MD Primary Care Provider + Formerly [facility], [facility], [facility] Primary Care Provider UnavailRancho Brock MD Primary Care Provider + Hawa Torres MD Primary Care Provider Unavaila Hawa Maddox MD Primary Care Provider Unavaila elpidio Formerly [facility], [facility], Pcp Primary Care Provider UnavailHawa Barron MD Primary Care Provider Unavaila ble Formerly [facility], [facility], Pcp Primary Care Provider Hawa Zavala MD Primary Care Provider Unavaila Melonie Rojas DO Primary Care Pro vider Unavailable Formerly [facility], [facility], Pcp Primary Care Provider Hawa Zavala MD Primary Care Provider Unavaila Jessi Cagle [facility] Unavailable + Encounter Details Date Type Department Care Team Description 11/04/2020 Stamper Blocker Report Medical Records [address] [place] [id number] Lorin Mcclelland MD Social History Tobacco Use [...] on filedocumented in this encounter Care Teams Transport Tech Relationship Specialty Start Date End Date Hawa Torres MD PCP - General Internal Medicine 09/09/15 12/19/20 Rancho Matthews MD [address] [place] [address] PCP - General Internal Medicine 12/20/20 03/22/21 [facility]ly [facility], [facility], [place] [phone] PCP - General Internal Medicine 03/23/21 04/11/21 Rancho Matthews MD [address] [place] [address] PCP - General Internal Medicine 04/12/21 04/12/21 Hawa Torres MD [address] [place] [address] PCP - General Internal Medicine 04/13/21 06/05/21 Hawa Torres MD [address] [place] [address] PCP - General Internal Medicine 06/06/21 08/07/21 Formerly [facility], [facility], [address] [address] PCP - General Internal Medicine 08/08/21 10/27/21 Hawa Torres MD PCP - General Internal Medicine 10/28/21 04/11/22 [facility]ly [facility], [facility], Pcp [address] [place] [address] PCP - General Internal Medicine 04/12/22 05/01/22 Hawa Torres MD [address] [place] [address] PCP - General Internal Medicine 05/02/22 05/21/22 Melonie Sorensen DO [address] [place] [address] PCP - General Internal Medicine 05/22/22 09/07/22 Formerly [facility], [facility], Pcp [address] [place] [address] PCP - General Internal Medicine 09/08/22 11/08/22 Hawa Torres MD [address] [place] [address] PCP - General Internal Medicine 11/09/22 Taya Gonzales MD Specialist Cardiology 11/01/20 Chandan Breen PA Specialist Cardiology 11/01/20 02/20/24 Jessi Erwin, KITTY [address] [place] [address] Specialist Nurse Practitioner [facility] 02/21/24 documented as of this encounter
--- OUTSIDE RECORDS SUMMARY | 2024-11-04 13:52 | XMS_ITS | Encounter Summary ---
Author Organization [facility] Address [address] [place] [address] Care Team Providers Care Credit Coordinator Name Role Phone Hawa Torres MD Primary Care Provider Unavaila Taya Covington MD Unavailable +[phone] Chandan Breen Unavailable Rancho Matthews MD Primary Care Provider +[phone] [facility], [facility] Primary Care Provider UnavailRancho Brock MD Primary Care Provider +[phone] Hawa Torres MD Primary Care Provider Unavaila Hawa Maddox MD Primary Care Provider Unavaila elpidio [facility], Pcp Primary Care Provider UnavailHawa Barron MD Primary Care Provider Unavaila ble [facility], Pcp Primary Care Provider Hawa Zavala MD Primary Care Provider Unavaila ble Melonie Sorensen DO Primary Care Pro vider Unavailable [facility], Pcp Primary Care Provider Hawa Zavala MD Primary Care Provider Unavaila Jessi Cagle [facility] Unavailable + 11 Reason for Visit * Reason Onset Date Comments medication problems 07/15/2019 Encounter Details Date Type Department Care Team Description 07/15/2019 Telephone Medicine/Pediatrics - [address] [phone] Hawa Torres MD medication problems Social History Tobacco Use Types Packs/Day Years [...] encounter Miscellaneous Notes * Telephone Encounter - Jessica Figueroa R.N. - 07/15/2019 2:52 PM EDT FYI:See below gave ok to switch to tabs. * Telephone Encounter - Vera Skaggs - 07/15/2019 1:12 PM EDT Who is calling? Fax from pharmacy Name of the medication ranitidine (ZANTAC) 150 MG capsule What is the specific problem or interaction? Cap are recalled can we use tablet If the patient is having a problem with taking the med - how long has the problem been going on? N/A documented in this encounter Plan of Treatment Not on file documented as of this encounter Visit Diagnoses Not on filedocumented in this encounter Care Teams Credit Coordinator Relationship Specialty Start Date End Date Hawa Torres MD PCP - General Internal Medicine 09/09/15 12/19/20 Rancho Matthews MD [address] [place] [phone] PCP - General Internal Medicine 12/20/20 03/22/21 [facility] [address] [address] PCP - General Internal Medicine 03/23/21 04/11/21 Rancho Matthews MD [address] [place] [phone] PCP - General Internal Medicine 04/12/21 04/12/21 Hawa Torres MD [address] [place] [address] PCP - General Internal Medicine 04/13/21 06/05/21 Hawa Torres MD [address] [place] [address] PCP - General Internal Medicine 06/06/21 08/07/21 [facility], Pcp [address] [place] [phone] PCP - General Internal Medicine 08/08/21 10/27/21 Hawa Torres MD PCP - General Internal Medicine 10/28/21 04/11/22 [facility], Pcp [address] [place] [address] PCP - General Internal Medicine 04/12/22 05/01/22 Hawa Torres MD [address] [place] [address] PCP - General Internal Medicine 05/02/22 05/21/22 Melonie Sorensen, DO [address] [place] [address] PCP - General Internal Medicine 05/22/22 09/07/22 [facility], Pcp [address] [place] [address] PCP - General Internal Medicine 09/08/22 11/08/22 Hawa Torres MD [address] [place] [address] PCP - General Internal Medicine 11/09/22 Taya Gonzales MD Specialist Cardiology 11/01/20 Chandan Breen PA Specialist Cardiology 11/01/20 02/20/24 Jessi Erwin DNP [address] [place] [address] Specialist Nurse Practitioner [facility] 02/21/24 documented as of this encounter
--- OUTSIDE RECORDS SUMMARY | 2024-11-04 13:52 | XMS_ITS | Encounter Summary ---
Author Organization [facility] Address [address] [place] [address] Care Team Providers Care Car Head Liner Installer Name Role Phone Hawa Torres MD Primary Care Provider UnavailTaya Lira MD Unavailable [phone] Chandan Breen Unavailable Rancho Matthews MD Primary Care Provider +[phone] [facility], Pcp Primary Care Provider UnavailRancho Brock MD Primary Care Provider +[phone] Hawa Torres MD Primary Care Provider Unavaila Hawa Maddox MD Primary Care Provider Unavaila elpidio [facility], Pcp Primary Care Provider Hawa Zavala MD Primary Care Provider Unavaila ble [facility], Pcp Primary Care Provider Hawa Zavala MD Primary Care Provider Unavaila Melonie Rojas DO Primary Care Pro vider Unavailable [facility], Pcp Primary Care Provider Hawa Zavala MD Primary Care Provider Unavaila Jessi Cagle [facility] Unavailable +[phone] Encounter Details Date Type Department Care Team Description 08/13/2019 Pt. Non Urgent Medical Question Pulmonology - [place] [address] [facility] [address] [place] [address] Marcela Gunter FNP [address] [place], [place] [id number] Social History Tobacco Use Types Packs/Day Years [...] as of this encounter Progress Notes * BERNARDINO Kerr - 08/13/2019 2:25 PM ESTFrom: Dana Grant To: BERNARDINO Kerr Sent: 08/13/2019 2:23 PM EST Subject: cpap I believe I may have accidentally changed the settings on my cpap machine. I have felt some drynessand the machine seems to be using a lot more water. Is there anyway to check this? documented in this encounter Plan of Treatment Not on file documented as of this encounter Visit Diagnoses Not on filedocumented in this encounter Care Teams Car Head Liner Installer Relationship Specialty Start Date End Date Hawa Torres MD PCP - General Internal Medicine 09/09/15 12/19/20 Rancho Matthews MD [address] [place] [address] PCP - General Internal Medicine 12/20/20 03/22/21 [facility], [address] [address] PCP - General Internal Medicine 03/23/21 04/11/21 Rancho Matthews MD [address] [place] [address] PCP - General Internal Medicine 04/12/21 04/12/21 Hawa Torres MD [address] [place] [phone] PCP - General Internal Medicine 04/13/21 06/05/21 Hawa Torres MD [address] [place] [address] PCP - General Internal Medicine 06/06/21 08/07/21 [facility], Pcp [address] [place] [address] PCP - General Internal Medicine 08/08/21 10/27/21 Hawa Torres MD PCP - General Internal Medicine 10/28/21 04/11/22 [facility], Pcp [address] [place] [address] PCP - General Internal Medicine 04/12/22 05/01/22 Hawa Torres MD [address] [place] [address] PCP - General Internal Medicine 05/02/22 05/21/22 Melonie Sorensen, [address] [place] [address] PCP - General Internal Medicine 05/22/22 09/07/22 [facility], Pcp [address] [place] [address] PCP - General Internal Medicine 09/08/22 11/08/22 Hawa Torres MD [address] [place] [address] PCP - General Internal Medicine 11/09/22 Taya Gonzales MD Specialist Cardiology 11/01/20 Chandan Breen PA Specialist Cardiology 11/01/20 02/20/24 Jessi Erwin DNP [address] [place] [phone] Specialist Nurse Practitioner [facility] 02/21/24 documented as of this encounter
--- OUTSIDE RECORDS SUMMARY | 2024-11-04 13:53 | XMS_ITS | Clinical Summary ---
Author Organization [address] [place] [address] [place] [phone] Phone Care Team Providers Care Mine Inspector Federal Name Role Phone Unavailable Primary Care Provider Unavailabl e Allergies Active Allergy Reactions Criticality Noted Date Comments Cetirizine Weakness 05/12/2020 Iodinated Contrast Media 09/12/2022 Lisinopril 10/29/2012 hyperkalemia Losartan 09/12/2022 hyperkalemia Other 10/29/2020 Spironolactone 05/04/2017 Acute kidney injury. Medications sevelamer carbonate (RENVELA) 800 mg tablet Take 1 tablet (800 mg total) by mouth 3 (three) times a day with meals. Active flash glucose sensor (FREESTYLE CHARLIE 2 SENSOR MISC) APPLY 1 DEVICE EVERY 14 DAYS. 09/12/20 23 Active pen needle, diabetic 32 gauge x 5/32 needle USE 5 TIMES A DAY WITH INSULIN 03/26/20 23 Active busPIRone (BUSPAR) 15 mg tablet Take 1 tablet (15 mg total) by mouth 2 (two) times a day. 10/09/19 23 Active carvediloL (COREG) 3.125 mg tablet Take 1 tablet (3.125 mg total) by mouth 2 (two) times a day with meals. Active glucose blood (FreeStyle Precision Stepan Strips) test strip Apply 1 each topically 3 (three) times a day if needed (to test blood sugars). 09/01/20 22 Active FREESTYLE LANCETS MISC Test BS tid 09/01/20 22 Active triamcinolone (KENALOG) 0.1 % cream Mix Triamcinolone 0.1% cream 80gms with Cerave cream. Apply daily from neck down after showers. Not to be used on the face. 08/25/20 Active clobetasoL (TEMOVATE) 0.05 % cream Apply twice daily for 2 weeks 08/25/20 Active calcipotriene (DOVONOX) 0.005 % ointment Apply to affected are BID 08/25/20 Active multivitamin tablet Take 1 tablet by mouth 1 (one) time each day. Active loratadine (CLARITIN) 10 mg tablet Take 1 tablet (10 mg total) by mouth 1 (one) time each day. 02/12/20 Active atorvastatin (LIPITOR) 40 mg tablet Take 1 tablet (40 mg total) by mouth 1 (one) time each day. 02/09/20 Active letrozole (FEMARA) 2.5 mg tablet Take 1 tablet (2.5 mg total) by mouth 1 (one) time each day 12/10/19 Active levothyroxine (SYNTHROID, LEVOTHROID) 112 mcg tablet Take 1 tablet (112 mcg total) by mouth. Six days a week and 0.5 tablet once weekly 10/05/19 Active glucose blood test strip Apply 1 each topically. 04/30/20 Active acetaminophen (TYLENOL) 500 mg capsule Take 1 capsule (500 mg total) by mouth 1 (one) time each day if needed for mild pain or moderate pain. Active aspirin 81 mg EC tablet Take 1 tablet (81 mg total) by mouth daily. Active senna (SENOKOT) 8.6 mg tablet Take 1 tablet by mouth daily. Active syringe with needle 1 mL 22 gauge x 1 1/2 syringe by Does not apply route. Patient started dialysis on August 17, 2022 Active insulin lispro (HumaLOG KwikPen Insulin) 100 unit/mL injection pen USE BEFORE EACH MEAL PER SLIDING SCALE: <120: 0 units, 914925: 3 units, 151-199: 4 UNITS, 200-249: 5 UNITS, 250-299: 6 UNITS, 300-349: 7 UNITS, 350-400: 8 UNITS, ABOVE 400: CONTACT PRESCRIBER 10/30/19 Active insulin lispro (HumaLOG KwikPen Insulin) 100 unit/mL injection pen USE BEFORE EACH MEAL PER SLIDING SCALE: <120: 0 units, 120-150: 2 units, 151-199: 3 UNITS, 200-249: 4 UNITS, 250-299: 6 UNITS, 300-349: 8 UNITS, 350-400: 10 UNITS, ABOVE 400: CONTACT PRESCRIBER 08/20/20 23 Discontinu ed(Reorder ) FLUoxetine (PROzac) 10 mg capsule Take 1 capsule (10 mg total) by mouth daily. Discontinu ed(Discont inued by another clinician) esomeprazole (NexIUM) [address] capsule Take 1 capsule (40 mg total) by mouth 1 (one) time each day before breakfast. Do not open capsule. Discontinu ed(Discont inued by another clinician) Active Problems Problem Noted Date Diagnosed Date HTN (hypertension) 11/28/2023 Overview (10/14/2024): Treatment limited by hypotension at dialysis Assessment & Plan (10/18/2024 9:58 AM EST): The patient's blood pressure is well-controlled in office today on her current dose Coreg. If hypotension is limiting dialysis, may need to consider eliminating her beta-karen therapy altogether. Will defer to renal for that final decision Hyperlipidemia 11/28/2023 Assessment & Plan (10/18/2024 9:58 AM EST): Well-controlled lipid profile on current dose statin. Continue Hypothyroidism 11/28/2023 GERD (gastroesophageal reflux disease) 4 Hiatal hernia 11/28/2023 Anemia, chronic disease 11/28/2023 CKD (chronic kidney disease) stage 3, GFR 30-59 ml/min 11/28/2023 Overview (11/28/2023): Dr. Barragan Lichen sclerosus et atrophicus of the vulva 02/2024 History of percutaneous coronary intervention Malignant neoplasm of overla pping sites of left breast in female, estrogen receptor positive 11/28/2023 Hypercalcemia 02/22/2022 PLMD (periodic limb movement disorder) 11/29/202 1 Nocturnal hypoxemia 04/21/2021 Respiratory failure with hypercapnia 03/11/2021 Overview (11/28/2023): Complex history, recent hospitalization, component of systolic/diastolic dysfunction. Patient will be following with pulmonology ACC/AHA stage B congestive h eart failure due to ischemic cardiomyopathy 03/08/2021 Overview (11/28/2023): Ischemic congestive cardiomyopathy Systolic left-sided congestive heart failure, [place] KEY class 2 01/26/2021 Overview (10/14/2024): - LVEF as low as 10-15% - GDMT limited by hypotension - Most recent echocardiogram 07/2022 at [facility] showed LVEF 10- 15%, global hypokinesis with wall motion abnormalities without hemodynamically significant valve disease - [employer] LOGGING SHOVEL OPERATOR-D generator change in 12/2023. There had been some noise on her atrial lead that was found to have a small insulation breach. However, the lead was tested repeatedly and no noise was seen on manipulating it. Therefore, a lead repair kit was used and the isulation was fixed. Assessment & Plan (10/18/2024 9:58 AM EST): The patient's volume status is managed by [...] hand and arm temperature is equal bilaterally. Pulmonary embolism 11/30/2020 Malignant neoplasm of left female breast 021 Class 1 obesity 04/15/2018 Chronic systolic heart failure 08/22/2016 Type 2 diabetes, controlled, with renal manifest ation 06/02/2015 Obstructive sleep apnea 04/16/2015 Overview (11/28/2023): [facility] Polysomnogram treatment study. Date 10/06/2017 . SE 68 % SM 72 %; spent 13 % of the study in REM. At the optimal pressure of CPAP 7-9; RDI <4 (AHI <4), Central apneas 0-2; Obstructive apneas 0; Mixed apneas 0; hypopneas 3-4; RERAs 2; and, average oxygen saturation was 93%. For the entire study, PLMs ~34. SMS CPAP treatment study, 08/07/2021. Weight 135 pounds; BMI 27. CPAP 16 recommended with additional supplementation of oxygen at 2 L/min flow. Also noted PLM's 49 during the study. Osteopenia 11/29/2012 Biventricular implantable ca rdioverter-defibrillator in situ 11/20/2012 CAD (coronary artery disease) 08/19/2012 Overview (10/14/2024): - She had a cardiac catheterization in September 2014 for progressive heart failure symptoms and positive stress test. This showed a 99% mid LAD stenosis with collaterals to the distal LAD that was not intervened upon secondary to chronicity and complexity of the lesion. Assessment & Plan (10/18/2024 9:58 AM EST): She has no anginal symptoms to her current MET workload. For now, continue her ASA, BB and statin. Resolved Problems Problem Noted Date Diagnosed Date Resolved Date Old [place] (myocardial infarction) 11/28/2023 10/14/2024 Overview (11/28/2023): March 2011 [place] at [facility] Chronic systolic dysfunction of left ventricle 11/28/2023 10/14/2024 Overview (11/28/2023): S/P pacemaker Pacemaker 01/26/2021 10/14/2024 Overview (11/28/2023): Cardiac pacemaker Encounters Date Type Department Care Team Description 10/30/2024 3:40 PM EST Office Visit Endocrinology - [address] [phone] Lucille Clarke PA 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, with long-term current use of insulin (CMS/HCC) (Primary Dx); Hypothyroidism, unspecified type 10/22/2024 Telephone [facility] Cardiology [facility] - [address] [place] [address] Jessi Erwin NP faxed office note 10/14/2024 10:25 PM EST Ancillary Procedure [facility] - [address] [place] [address] 10/14/2024 12:40 PM EST Consult [facility] Cardiology [facility] - [address] [place] [address] Jessi Erwin NP Chronic systolic dysfunction of left ventricle (Primary Dx); Primary hypertension; Coronary artery disease involving upper sioux coronary artery of upper sioux heart without angina pectoris; Systolic left-sided congestive heart failure, NYHA class 2 (CMS/HCC); Pure hypercholesterolemia; Preop cardiovascular exam 09/30/2024 3:15 PM EST Office Visit [facility] Hematology Oncology [address] [place] [phone] Cullen Gibson MD 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 breast in female, estrogen receptor positive (CMS/HCC) (Primary Dx) 09/15/2024 Telephone [facility] Cardiology [facility] - [address] [place] [address] Ramya Headley NP Arm Swelling 09/11/2024 11:25 AM EST Ancillary Procedure [facility] Cardiology [facility] - [address] [place] [address] 09/09/2024 Telephone [facility] Cardiology [facility] - [address] [place] [address] Nikhil Sorenson MD 08/14/2024 5:30 PM EST Ancillary Procedure [facility] - [address] [facility] [address] [place] [address] from Last 3 Months Immunizations Name Administration Dates Next Due Influenza trivalent, 0.5mL ( Fluzone High-dose) 65yo and older 08/03/2020,07/24/2019,08/06/2018,06/25,06/22/2016 Influenza trivalent, with pr eservative (Fluzone; Afluria) 6mo and older 06/10/2015,11/02/2014,05/28/2013,08/19,07/17/2011 Pfizer SARS-CoV-2 COVID-19, mRNA, LNP-S, preservative free 07/22/2021,12/01/2020,11/02/2020 Pneumococcal conjugate 13 va lent (Prevnar 13, PCV13) 2mo and older 03/10/2015 Pneumococcal polysaccharide 23 valent (Pneumovax 23) 2yo and older 08/11/2009,08/03/2005 Tdap Tetanus diptheria acell ular pertussis (Boostrix; Adacel) 7yo and older 11/20/2012 Zoster Live 11/20/2012 Social History Tobacco Use Types Packs/Day Years [...] on file Sexual Orientation Not on file Obstetrics History Last Filed Vital Signs Vital Sign Reading Time Taken Comments Blood Pressure 152/69 10/30/2024 3:43 PM EST 5 m ins Pulse 64 10/30/2024 3:38 PM EST Temperature 36.2 ??C (97.2 ??F) 10/30/2024 3:38 PM ES T Respiratory Rate - - Oxygen Saturation 95% 10/14/2024 12:42 PM EST Inhaled Oxygen Concentration - - Weight 65.8 kg (145 lb) 10/30/2024 3:38 PM EST Height 149.9 cm (4' 11 ) 10/30/2024 3:38 PM EST Body Mass Index 29.29 10/30/2024 3:38 PM EST Plan of Treatment Upcoming Encounters Date Type Department Care Team (Late st Contact Info) Description 02/04/2025 3:30 PM EDT Ancillary Procedure [facility] - [facility] [address] [facility] [address] [place] [phone] 02/19/2025 3:40 PM EDT Office Visit Endocrinology - [address] [phone] Lucille Clarke PA [address] [place] [address] 03/31/2025 3:15 PM EDT Office Visit [facility] Hematology Oncology [address] [place] [phone] Cullen Gibson MD [address] [place] [phone] 04/09/2025 3:40 PM EDT Appointment Radiology Department - [address] [address] 04/23/2025 10:50 AM EDT Office Visit [facility] Cardiology [facility] - [facility] [address] [facility] 154 [place] [phone] Taya Gonzales MD [address] [place] [address] Health Maintenance Due Date Last Done Comments Diabetes: Annual GFR (Glomerular Filtration Rate) 1940 DTaP,Tdap,and Td Vaccines (2 - Td or Tdap) 12/18/2012 11/20/2012 Zoster Vaccines (1 of 2) 01/15/2013 11/20/2012 RSV Immunization Patients 60+ Years Old (1 - 1-dose 75+ series) 2017 Colorectal Cancer Screening: Colonoscopy 08/31/2022 Depression Screening 08/31/2022 Falls Risk Assessment 08/31/2022 Medicare Annual Wellness Visit 08/31/2022 Social Influencers of Health Screening 08/31/2022 Diabetes: Annual Urine Albumin-Creatinine Ratio (uACR) 09/03/2022 Hypertension/CHF/CAD Annual BMP Blood Test 09/03/2022 Diabetes: Blood Sugar Control Test (HGBA1C) 11/11/2022 05/11/2022 Diabetes: Annual Retina Eye Exam 12/28/2022 12/28/2021 Diabetes: Annual Foot Exam 02/02/2023 02/02/2022 COVID-19 Vaccine ( season) 2024 07/22/2021, 12/01/2020, 11/02/2020 Influenza Vaccine (#1) 2024 , 07/22/2021, 08/03/2020, Additional history exists Cholesterol Screening (Lipid Panel) 06/25/2025 06/25/2020 Osteoporosis Screening (Bone Density Screening) 11/08/2030 11/08/2020 Pneumococcal Vaccine: 50+ Years Completed 11/19/2023, 03/10/2015, 08/11/2009, Additional history exists HIB Vaccines Aged Out No longer eligi ble based on patient's age to complete this topic HPV Vaccines Aged Out No longer eligi ble based on patient's age to complete this topic Hepatitis A Vaccines Aged Out No long er eligible based on patient's age to complete this topic Hepatitis B Vaccines Aged Out No long er eligible based on patient's age to complete this topic IPV Vaccines Aged Out No longer eligi ble based on patient's age to complete this topic MMR Vaccines Aged Out No longer eligi ble based on patient's age to complete this topic Meningococcal ACWY Vaccine Aged Out N o longer eligible based on patient's age to complete this topic Meningococcal B Vacine Aged Out No lo nger eligible based on patient's age to complete this topic RSV Immunization Patients Under 20 months Aged Out No longer eligible based on patient's age to complete this topic Varicella Vaccines Aged Out No longer eligible based on patient's age to complete this topic Medical Devices Implanted Type Area Security Sales Manager Device Identifier Shelf Expiration Date Model / Serial / Lot [id number]-[id number] [id number] Bruce Chacko() [id number] Implanted:12/23 (Quantity not on file) Cardiac LOGGING SHOVEL OPERATOR-D ICD [facility] [id number] CINDYAfsaneh CHACKO() / [id number] / Procedures Procedure Name Priority Date/Time Associated Diagnosis Comments ECG 12-LEAD Routine 10/18/2024 9:59 AM EST Chronic systolic dysfunction of left ventricle CARDIAC DEVICE CHECK- REMOTE- MURJ Routine 10/14/2024 10:24 PM EST CARDIAC DEVICE CHECK- REMOTE- MURJ Routine 09/11/2024 11:20 AM EST CARDIAC DEVICE CHECK- REMOTE- MURJ Routine 08/14/2024 5:28 PM EST VALORIE DEXA AXIAL SKELETON Routine 11/08/2020 3:13 PM EST Asymptomatic menopausal state from Last 3 Months or Most Recently Relevant to Health Maintenance Results * ECG 12 lead (10/18/2024 9:59 AM EST) Ventricular Rate ECG 72 BPM GEMUSE Atrial Rate 72 BPM GEMUSE P-R Interval 152 ms GEMUSE QRS Duration 148 ms GEMUSE Q-T Interval 466 ms GEMUSE QTc 510 ms GEMUSE P Wave [place] 69 degrees GEMUSE R [place] -65 degrees GEMUSE T [place] 97 degrees GEMUSE ECG Interpretation Atrial sensed, BiV paced rhythm Confirmed by CHANDAN BEATTY ([id number]) on 10/18/2024 11:50:21 PM GEMUSE 10/14/2024 12:4 9 PM EST 10/18/2024 11:50 PM EST us Jessi Erwin NP ECG ORDERABLES Edited Result - Final GEMUSE * Cardiac device check - Remote- MURJ (10/14/2024 10:24 PM EST) Only the most recent of3 resultswithin the time period is included. Date Time Interrogation Session [id number] CV DEVICE CHECK Type Interrogation Session Remote Scheduled CV DEVICE CHECK Implantable Pulse Generator Security Sales Manager [employer] CV DEVICE CHECK Implantable Pulse Generator Type LOGGING SHOVEL OPERATOR-D CV DEVICE CHECK Implantable Pulse Generator Model [id number] Bruce Chacko(TM) CV DEVICE CHECK Implantable Pulse Generator Serial Number [id number] CV DEVICE CHECK Implantable Pulse Generator Implant Date 20240110 CV DEVICE CHECK Battery Remaining Percentage 83.00 CV DEVICE CHECK Battery Remaining Longevity 53.0 CV DEVICE CHECK Battery Voltage 3.010 CV D EVICE CHECK Battery DOCKET SPECIALIST Trigger 2.590 CV DEVICE CHECK Battery Status Middle of Service CV DEVICE CHECK Capacitor Charge Time 8.000 CV DEVICE CHECK Antione Statistic RA Percent Paced 49.00 CV DEVICE CHECK Antione Statistic RV Percent Paced 100.00 CV DEVICE CHECK LOGGING SHOVEL OPERATOR Statistic LOGGING SHOVEL OPERATOR Percent Paced 99.00 CV DEVICE CHECK Atrial Tachy Statistic AT/AF [place] Percent 0.00 CV DEVICE CHECK Lead Channel [...] CV DEVICE CHECK Ventricular chambers paced during LOGGING SHOVEL OPERATOR pacing. BiV CV DEVICE CHECK Antione Setting Lower Rate Limit 60 CV DEVICE CHECK Antione Setting AT Mode Switch Rate 180 CV DEVICE CHECK Antione Setting Maximum Tracking Rate 110 CV DEVICE CHECK Antione Setting Maximum Sensor Rate 110 CV DEVICE CHECK Antione Setting PAV Delay 150 CV DEVICE CHECK Antione Setting JAGJIT Delay 130 CV DEVICE CHECK LOGGING SHOVEL OPERATOR LV-RV Delay 40 CV D EVICE [...] overt HF present Narrative Procedure Note Kaz Beatty MD - 10/14/2024 IMPRESSION: Heart Failure Diagnostic: Stable * Heart failure diagnostics assessed through the device * Status: Stable * No overt HF present us Kaz Beatty MD CV IMPLANTABLE CARDIAC DEV ICE PROCEDURES Final Result * VALORIE DEXA AXIAL SKELETON (11/08/2020 3:13 PM EST) Anatomical Region Laterality Modality Mammography 11/08/2020 12:4 8 PM EST Narrative 11/08/2020 3:13 PM EST [facility] Diagnostic Imaging Department [address] [place] [address] [id number] Patient: ??DANA NASH ?/Age/Sex: 1940 - 80 - F Unit#: ??[id number] ? Location/Status: ??SPDIMAM/REG CLI ? Mnemonic/Ordering Site: ??MAMDEXAAX/SPMAM Ordering Physician: ??CULLEN GIBSON MD Valorie Dexa Axial Skeleton - 11/08/20 - 1324 HISTORY: ??The patient is a 80-year-old postmenopausal female with clinical concern for metabolic bone disease. FINDINGS: ??Dual energy x-ray absorptiometry of the lumbar spine and femurs is performed. The mean bone mineral density at L1-L4 is 1.267 gm/cm2 which is 107% of that of young normals and 133% of that of age matched controls. This yields a T-score of 0.7 and a Z-score of 2.6 and there is therefore no evidence of osteoporosis or osteopenia here. The mean bone mineral density of the femurs bilaterally is 0.981 gm/cm2 which is 97% of that of young normals and 130% of that of age matched controls. ??This yields a T-score of -0.2 and a Z-score of 1.8 and there is therefore no evidence of osteoporosis or osteopenia here. ??However, the T-score of the right femoral neck is -1.6 and that of the left femoral neck is -1.9 which is diagnostic of osteopenia. IMPRESSION: 1. Osteopenia. 2. FRAX analysis yields a 10-year probability of major osteoporotic fracture of 13.1% and a 10-year probability of hip fracture of 3.1%. Code 52812 Dictating Physician: ??KYLIE GLASER MD Electronically Signed by: ??KYLIE GLASER MD Dic Date/Time: ??11/08/201511 Sign date/Time: ??11/08/20 151 Procedure Note Kylie Glaser MD - 09/12/2022 [facility] Diagnostic Imaging Department [address] [place] [id number] Patient: CHARITYDANA./Age/Sex: 1940 - 80 - F Unit#: [id number] Location/Status: SPDIMAM/REG CLI Mnemonic[facility] Ordering Physician: CULLEN GIBSON MD Valorie Dexa Axial Skeleton - 11/08/201323 HISTORY: The patient is a 80-year-old postmenopausal female withclinical concern for metabolic bone disease. FINDINGS: Dual energy x-ray absorptiometry of the lumbar spine and femursis performed. The mean bone mineral density at L1-L4 is 1.267 gm/cm2 which is107% of that of young normals and 133% of that of age matched controls. Thisyields a T-score of 0.7 and a Z-score of 2.6 and there is therefore no evidenceof osteoporosis or osteopenia here. The mean bone mineral density of the femurs bilaterally is 0.981 gm/ix1utoit is 97% of that of young normals and 130% of that of age matched controls.This yields a T-score of -0.2 and a Z-score of 1.8 and there is therefore noevidence of osteoporosis or osteopenia here. However, the T-score of the rightfemoral neck is -1.6 and that of the left femoral neck is -1.9 which is diagnosticof osteopenia. IMPRESSION: 1. Osteopenia. 2. FRAX analysis yields a 10-year probability of major osteoporoticfracture of 13.1% and a 10-year probability of hip fracture of 3.1%. Code 33256 Dictating Physician: KYLIE GLASER MD Electronically Signed by: KYLIE GLASER MD Dic Date/Time: 11/08/201511 Sign date/Time: 11/08/201512 Cullen Gibson MD IMG BI PROCEDURES Final Res ult from Last 3 Months or Most Recently Relevant to Health Maintenance Insurance [employer] [place] [employer] [place]
[2024-11-04 13:59] VITALS: PULSE 70; O2SAT 95
== END 2024-11-04 14:04 | disposition home or self-care (01) ==
PROVIDERS: PCP Internal Medicine; Visit Provider Nurse Practitioner Family
DX: R06.02 Shortness of breath (principal); I50.20 Unspecified systolic (congestive) heart failure; N18.6 End stage renal disease; Z99.2 Dependence on renal dialysis; R68.89 Other general symptoms and signs

== ENCOUNTER 2024-11-11 10:02 | Outpatient (AMB) | payer MEDICARE, MEDICAID, SELFPAY ==
--- NOTE | 2024-11-11 10:05 | A.OFFPC_ITS ---
Vital Signs 11/11/24 10:09 Height 4 ft 9 in Weight 145 lb 2 oz BMI 31.4 BP 102/67 Blood Pressure Location Rt brachial Position Sitting Respiration 12 Pulse 75 Pulse Source Pulse Oximeter Temp 97.1 F Temp Source Oral Pulse Oximetry (%) 96 Oxygen Delivery Method Room Air Intake Visit Reasons: 1 WEEK CLOSE INTERIM FU SOB Intake Note: follow up on sob Construction Lineman Required: No Allergies cetirizine Allergy (Unknown, Verified 11/11/24 10:06) Unknown lisinopril Allergy (Unknown, Verified 11/11/24 10:06) Unknown losartan Allergy (Unknown, Verified 11/11/24 10:06) Unknown spironolactone Allergy (Unknown, Verified 11/11/24 10:06) Unknown contrast dye Allergy (Unknown, Uncoded 11/04/24 13:24) kidney failure Tobacco use date assessed: 11/11/24 Fall risk assessment: No Falls in past year Last assessed Fall Risk: 11/11/24 Dental Screening Dental Screen Date: 11/11/24 Did you have a dental visit in the last 12 months?: No Did you have a dental problem in the last 6 months where you did not have access to dental care?: No Was dental information given to patient?: Patient has dentist HPI HPI Comments History of Present Illness Details 84-year-old female with past medical his tory of type 2 diabetes, ESRD on HD, CAD, CHF, history of breast cancer, depression, presenting for follow up She was seen 11/04/24 by a colleague for cough and shortness of breath. She tested positive for flu. She was treated with tamiflu. She is feeling much better, still some persistent nagging cough CV: Follows with cardiology. No recent CHF exacerbation. Denies increased shortness of breath Endocrine: Hypothyroid on levothyroxine. DM: generally well controlled Depression is stable on prozac. Nephro: On HD 3x/week. Has been doing well. It was a hard adjustement for her GI: Dysphagia. Had barium swallow. Saw GI. ROS see HPI PHYSICAL EXAM: GENERAL: Alert and oriented x 3. NAD EYES: EOMI. Anicteric. HENT: Moist mucous membranes. LUNGS: Clear to auscultation bilaterally. CARDIOVASCULAR: Regular rate and rhythm. +murmur. No JVD. ABDOMEN: Soft, non-tender +bs EXTREMITIES: No edema. Non-tender. SKIN: No rashes or lesions. Warm. NEUROLOGIC: No focal neurological deficits. CN II-XII grossly intact PSYCHIATRIC: Cooperative. Appropriate mood and affect [facility] Medical History Fistula Urge incontinence of urine Type 2 diabetes mellitus Tubular adenoma of colon Systolic left-sided congestive heart failure, NYHA class 2 Pulmonary embolism Protein malnutrition Osteopenia STACEY on CPAP Malignant neoplasm of female breast Lichen sclerosus of vulva Left leg swelling Incontinence Hypothyroidism HTN (hypertension) Hyperlipidemia Hiatal hernia Gastro-esophageal reflux ESRD on dialysis Diabetes mellitus Coronary arteriosclerosis Ischemic cardiomyopathy Congestive heart failure Cancer of left breast CAD (coronary artery disease) Anemia Surgical History H/O colonoscopy H/O: hysterectomy S/P SANDRINE-BSO History of implantable cardiac defibrillator (ICD) Family History Maternal Grandmother Cardiovascular disease Father Lung cancer Social History Housing: House Patient Tobacco Use Status: Never used Tobacco e-Cigarette/Vaping Use: Never Used Second Hand Smoke Exposure: Yes Cognitive needs: No Hearing needs: No Vision needs: No Questionnaire PHQ-9 Over the last 2 weeks, how often have you been bothered by any of the following problems? 01261 - PHQ-9 Billing: Patient declined-do not bill Source: Developed by Drs. Bienvenido Aragon, Winnie Givens, Matt Alcantar and colleagues, with an educational justen from [employer]. Thrive Questionnaire Date Thrive assessed: 11/11/24 I am a: Parent/Caregiver What is your living situation today?: I have a steady place to live Within the past 12 months, did the food you bought not last and you didn't have the money to get more?: Never true Within the past 12 months, did you worry whether your food would run out before you got money to buy more?: Never true Do you have trouble paying for medicines?: No Do you have trouble getting transportation to medical appointments?: No Do you have trouble paying your heating and electricity bill?: No Do you have trouble taking care of your child, family member or friend?: No Do you have trouble with day-to-day activities such as bathing, preparing meals, shopping, managing finances, etc.?: Yes Are you currently unemployed and looking for a job?: No Are you interested in more education?: No Please select the resources that you would like help with: None Currently or been in a relationship where the following occur: No concerns reported THRIVE Score: 0 ANDREEA-7 AMB Questionnaire ANDREEA-7 Date ANDREEA - 7 assessed: 11/11/24 Feeling nervous, anxious, or on edge: 0 = Not at all Not being able to stop or control worryin = Not at all Worrying too much about different things: 0 = Not at all Trouble relaxin = Not at all Being so restless that it is hard to sit still: 0 = Not at all Becoming easily annoyed or irritable: 0 = Not at all Feeling afraid as if something awful might happen: 0 = Not at all Total ANDREEA-7 score (0-4 normal; 5-9 mild; 10-14 moderate; 15-21 severe): 0 Source: Developed by Drs. Bienvenido Aragon, Winnie Givens, Matt Alcantar and colleagues, with an educational justen from [employer]. ANDREEA-7 Assessment Billing ANDREEA-7 Assessment Tool: ANDREEA-7 Assessment 55073 Physical exam (Primary Care) Vital Signs: Last Vital Signs Temp 97.1 F 11/11/24 10:09 Pulse 75 11/11/24 10:09 Resp 12 11/11/24 10:09 BP 102/67 11/11/24 10:09 Pulse Ox 96 11/11/24 10:09 Oxygen Delivery Method Room Air 11/11/24 10:09 BMI result Body Mass Index 31.4 Tobacco/Smoking Status: Tobacco use Status Tobacco use date assessed 11/11/24 11/11/24 10:08 Patient Tobacco Use Status Never used Tobacco 11/11/24 10:08 e-Cigarette/Vaping Use Never Used 11/11/24 10:08 Thrive Assessment: Date of Thrive Assessment Date Thrive assessed 11/11/24 11/11/24 10:08 Currently or been in a relationship where the following occur: No concerns reported Coding Level of Care Code Est Pt Level 3 (27079) Diagnoses Influenza A J10.1 Additional Codes ANDREEA-7 Assessment Billing - ANDREEA-7 Assessment Tool: ANDREEA-7 Assessment 48361 ([id number]) Assessment & Plan Assessment & Plan (1) Influenza A: Code(s): J10.1 - Influenza due to other identified influenza virus with other respiratory manifestations Category: Medical Plan: Feeling much improving. Some lingering cough. Lung sounds are clear. She is euvolemic. Cough syrup refilled Medications: Refilled hydrocodone-homatropine 5-1.5 mg/5 mL (5 mL) Partial Fill upon patient request. patient may pay out of pocket 5 mL PO Q4-6H PRN 200 mL 0RF cough
[2024-11-11 10:09] VITALS: BP 102/67; PULSE 75; RESP 12; TEMP 36.2; O2SAT 96; BMI 31.4
--- OUTSIDE RECORDS SUMMARY | 2024-11-11 10:51 | XMS_ITS | Encounter Summary ---
Author Organization [facility] Address [address] [place] [address] Care Team Providers Care Regional Production Manager Name Role Phone Taya Gonzales MD Unavailable [phone] Chandan Breen Unavailable Hawa Torres MD Primary Care Provider Unavaila ble [facility], Pcp Primary Care Provider UnavailHawa Barron MD Primary Care Provider Unavaila ble Melonie Sorensen DO Primary Care Pro vider Unavailable [facility], Pcp Primary Care Provider UnavailHawa Barron MD Primary Care Provider Unavaila ble Jessi Erwin DNP Unavailable [phone] Reason for Visit * Reason Onset Date Comments Faxed Refill 04/06/2022 Encounter Details Date Type Department Care Team Description 04/06/2022 Refill [place] [address] Lucille Clarke PA-C [address] [place] [address] Faxed Refill Social History Tobacco Use Types [...] suspected to have Coronavirus/COVID-19? No / Unsure 03/29/2022 3:23 PM EDT documented as of this encounter Miscellaneous Notes * Telephone Encounter - Nora Ackerman M.A. - 04/07/2022 9:21 AM EDT Jim 02/14/22 Ov 05/17/22 Lab Results Component Value Date HGBA1C 8.3 10/20/2021 MALBUR 437.0 11/11/2021 MALBCR 1409.6 11/11/2021 CHOL 138 06/25/2020 LDL 54 06/25/2020 HDL 55 06/25/2020 TRIG 145 06/25/2020 GLU 286 12/02/2021 CREAT 2.92 12/02/2021 * Telephone Encounter - Talya Dillon - 04/06/2022 11:14 AM EDT Patient would like script to be: E-PRESCRIBED/FAXED TO PHARMACY (THE MEDICATION REQUESTED IS ON THE MED [...] N/A Patients current insurance carrier is: Payor: [facility] FFS / Plan: [facility] MEDICARE PREMIUM $10 NAGA / Product Type: MEDICARE [id number] documented in this encounter Plan of Treatment Not on file documented as of this encounter Visit Diagnoses Diagnosis Uncontrolled type 2 diabetes mellitus with hyperglycemia (HCC) documented in this encounter Care Teams Regional Production Manager Relationship Specialty Start Date End Date Hawa Torres MD PCP - General Internal Medicine 10/28/21 04/11/22 [facility], Pcp PCP - General Internal Medicine 04/12/22 05/01/22 Hawa Torres MD PCP - General Internal Medicine 05/02/22 05/21/22 Melonie Sorensen DO PCP - General Internal Medicine 05/22/22 09/07/22 [facility], Pcp PCP - General Internal Medicine 09/08/22 11/08/22 Hawa Torres MD PCP - General Internal Medicine 11/09/22 Taya Gonzales MD Specialist Cardiology 11/01/20 Chandan Breen PA Specialist Cardiology 11/01/20 02/20/24 Jessi Erwin DNP Specialist Nurse Practitioner Family 02/21/24 documented as of this encounter
--- OUTSIDE RECORDS SUMMARY | 2024-11-11 10:51 | XMS_ITS | Encounter Summary ---
Author Organization [facility] Address [address] [place] [address] Care Team Providers Care Flooring Installer Name Role Phone Salomón Lou MD Primary Care Provider Unavail able Hawa Torres MD Primary Care Provider Unavaila Taya Covington MD Unavailable [phone] Chandan Breen Unavailable Rancho Matthews MD Primary Care Provider [phone] [facility], [facility] Primary Care Provider UnavailRancho Brock MD Primary Care Provider [phone] aHwa Torres MD Primary Care Provider Unavaila Hawa Maddox MD Primary Care Provider Unavaila ble [facility], Pcp Primary Care Provider UnavailHawa Barron MD Primary Care Provider Unavaila elpidio [facility], Pcp Primary Care Provider Hawa Zavala MD Primary Care Provider Unavaila ble Melonie Sorensen DO Primary Care Pro vider Unavailable [facility], Pcp Primary Care Provider UnavailHawa Barron MD Primary Care Provider Unavaila Jessi Cagle [facility] Unavailable [phone] Encounter Details Date Type Department Care Team Description 10/15/2014 Orders Only Cardiology - [address] [address] Elio Solano MD [address] [place] [address] [address] [place] [address] CKD (chronic kidney disease) requiring [...] BASIC METABOLIC PANEL (10/19/2014 11:38 AM EST) [facility] GLUCOSE 288(H) 70 - 100 mg/dL 10/19/2014 2:52 PM [facility] Comment: Reference range applicable to fasting specimens only Based on recommendations from the ADA and AACE, the fasting glucose reference range has been changed to 70-100 mg/dL. ??This change is effective February 07, 2010 BUN 74(H) 5 - 25 mg/dL 10/19/2014 2:52 PM [facility] CREAT 1.8(H) 0.7 - 1.5 mg/dL 10/19/2014 2:52 PM [facility] GFR 29(L) >60 10/19/2014 2:52 PM [facility] Comment: If patient is -Prydeinig, multiply result by 1.21 Chronic Kidney Disease: < 60 ml/min/1.73 square meters Kidney Failure: < 15 ml/min/1.73 square meters Sodium 140 133 - 145 mEq/L 10/19/2014 2:52 PM [facility] Potassium 4.6 3.5 - 5.2 mEq/L 10/19/2014 2:52 PM EST [facility] Chloride 98 96 - 108 mEq/L 10/19/2014 2:52 PM EST [facility] CO2 35.2(H) 21.0 - 32.0 mEq/L 10/19/2014 2:52 PM EST [facility] CALCIUM 10.5 8.5 - 10.5 mg/dL 10/19/2014 2:52 PM EST [facility] 10/19/2014 11:3 8 AM EST 10/19/2014 11:39 AM EST Elio Solano MD LAB [facility] [address] [place] [address] documented in this encounter Visit Diagnoses Diagnosis CKD (chronic kidney disease) requiring chronic dialysis (HCC)- Primary End stage renal disease documented in this encounter Care Teams Flooring Installer Relationship Specialty Start Date End Date Salomón Lou MD PCP - General Internal Medicine 09/01/14 09/08/15 Hawa Torres MD PCP - General Internal Medicine 09/09/15 12/19/20 Rancho Matthews MD [address] [place] [address] PCP - General Internal Medicine 12/20/20 03/22/21 [facility], Pcp [address] [place] [address] PCP - General Internal Medicine 03/23/21 04/11/21 Rancho Matthews MD [address] [place] [address] PCP - General Internal Medicine 04/12/21 04/12/21 Hawa Torres MD [address] [place] [address] PCP - General Internal Medicine 04/13/21 06/05/21 Hawa Torres MD [address] [place] [address] PCP - General Internal Medicine 06/06/21 08/07/21 [facility], Pcp [address] [place] [address] PCP - General Internal Medicine 08/08/21 10/27/21 Hawa Torres MD PCP - General Internal Medicine 10/28/21 04/11/22 [facility] Pcp [address] [place] [address] PCP - General Internal Medicine 04/12/22 05/01/22 Hawa Torres MD [address] [place] [address] PCP - General Internal Medicine 05/02/22 05/21/22 Melonie Sorensen, DO [address] [place] [address] PCP - General Internal Medicine 05/22/22 09/07/22 [facility], Pcp [address] [place] [address] PCP - General Internal Medicine 09/08/22 11/08/22 Hawa Torres MD [address] [place] [address] PCP - General Internal Medicine 11/09/22 Taya Gonzales MD Specialist Cardiology 11/01/20 Chandan Breen PA Specialist Cardiology 11/01/20 02/20/24 Jessi Erwin, KITTY [address] [place] [address] Specialist Nurse Practitioner [facility] 02/21/24 documented as of this encounter
--- OUTSIDE RECORDS SUMMARY | 2024-11-11 10:51 | XMS_ITS | Encounter Summary ---
Author Organization [facility] Address [address] [place] [address] Care Team Providers Care Film Examiner Name Role Phone Taya Gonzales MD Unavailable [phone] Chandan Breen Unavailable Community, Pcp Primary Care Provider Hawa Zavala MD Primary Care Provider Unavaila ble Replaced By [facility], Pcp Primary Care Provider Hawa Zavala MD Primary Care Provider Unavaila ble Melonie Sorensen DO Primary Care Pro vider Unavailable Replaced By [facility], Pcp Primary Care Provider Hawa Zavala MD Primary Care Provider Unavaila ble Jessi Erwin [facility] Unavailable [phone] Reason for Visit * Reason Onset Date Comments Medication 10/05/2021 Questioning poss ibly stopping Eliquis or Bridging Encounter Details Date Type Department Care Team Description 10/05/2021 Telephone Cardio PVC POC 154 [address] [facility] [address] [place] [address] Taya Gonzales MD [address] [place] [address] [id number] Medication (Questioning possibly stopping Eliquis or Bridging ) Social History Tobacco Use Types Packs/Day Years [...] have Coronavirus / COVID-19? No / Unsure 10/05/2021 1:47 PM EST documented as of this encounter Miscellaneous Notes * Telephone Encounter - BERNARDINO Ortiz - 10/17/2021 12:10 PM EST * Telephone Encounter - Edgar Zaman - 10/05/2021 4:29 PM EST Patient daughter Madelin is questioning if patient can stop her Eliquis 5 day prior to scheduled Biopsy on 10/14/21? Or do we recommend bridging? Please call Madelin back at [phone] documented in this encounter Plan of Treatment Not on file documented as of this encounter Visit Diagnoses Not on filedocumented in this encounter Care Teams Film Examiner Relationship Specialty Start Date End Date Community, [...]
--- OUTSIDE RECORDS SUMMARY | 2024-11-11 10:51 | XMS_ITS | Encounter Summary ---
Author Organization [facility] Address [address] [place] [address] Care Team Providers Care Firebrick And Refractory Tile Repairer Name Role Phone Taya Gonzales MD Unavailable [phone] Chandan Breen Unavailable Hawa Torres MD Primary Care Provider Unavaila elpidio [facility], Pcp Primary Care Provider UnavailHawa Barron MD Primary Care Provider Unavaila ble Melonie Sorensen DO Primary Care Pro vider Unavailable [facility], Pcp Primary Care Provider UnavailHawa Barron MD Primary Care Provider Unavaila ble Jessi Erwin DNP Unavailable [phone] Encounter Details Date Type Department Care Team Description 12/06/2021 Orders Only Medical Records [address] [place] [address] Julio C Lawler MD [address] [place] [address] Social History Tobacco Use Types Packs/Day Years [...] have Coronavirus / COVID-19? No / Unsure 12/02/2021 1:46 PM EST documented as of this encounter Plan of Treatment Not on file documented as of this encounter Procedures Procedure Name Priority Date/Time Associated Diagnosis Comments OUTSIDE MAMMO Routine 12/05/2021 OUTSIDE ULTRASOUND Routine 12/05/2021 documented in this encounter Results * OUTSIDE ULTRASOUND (12/05/2021) Julio C Lawler MD RADIOLOGY * OUTSIDE MAMMO (12/05/2021) Julio C Lawler MD RADIOLOGY documented in this encounter Visit Diagnoses Not on filedocumented in this encounter Care Teams Firebrick And Refractory Tile Repairer Relationship Specialty Start Date End Date Hawa Torres MD PCP - General Internal Medicine 10/28/21 04/11/22 [facility], Pcp PCP - General Internal Medicine 04/12/22 05/01/22 Hawa Torres MD PCP - General Internal Medicine 05/02/22 05/21/22 Melonie Sorensen DO PCP - General Internal Medicine 05/22/22 09/07/22 [facility], Pcp PCP - General Internal Medicine 09/08/22 11/08/22 Hawa Torres MD PCP - General Internal Medicine 11/09/22 Taya Gonzales MD Specialist Cardiology 11/01/20 Chandan Breen PA Specialist Cardiology 11/01/20 02/20/24 Jessi Erwin DNP Specialist Nurse Practitioner Family 02/21/24 documented as of this encounter
--- OUTSIDE RECORDS SUMMARY | 2024-11-11 10:51 | XMS_ITS | Encounter Summary ---
Author Organization [facility] Address [address] [place] [address] Care Team Providers Care Merchandising Consultant Name Role Phone Taya Gonzales MD Unavailable [phone] Chandan Breen Unavailable Hawa Torres MD Primary Care Provider Unavaila elpidio [facility], Pcp Primary Care Provider UnavailHawa Barron MD Primary Care Provider Unavaila ble Melonie Sorensen DO Primary Care Pro vider Unavailable [facility], Pcp Primary Care Provider UnavailHawa Barron MD Primary Care Provider Unavaila ble Jessi Erwin DNP Unavailable [phone] Encounter Details Date Type Department Care Team Description 12/07/2021 [facility] Medical Records [address] [place] [address] Julio C Lawler MD [address] [place] [address] Social History Tobacco Use Types Packs/Day Years [...] on filedocumented in this encounter Care Teams Merchandising Consultant Relationship Specialty Start Date End Date Hawa Torres MD PCP - General Internal Medicine 10/28/21 04/11/22 [facility], Pcp PCP - General Internal Medicine 04/12/22 05/01/22 Hawa Torres MD PCP - General Internal Medicine 05/02/22 05/21/22 Melonie Sorensen DO PCP - General Internal Medicine 05/22/22 09/07/22 [facility], Pcp PCP - General Internal Medicine 09/08/22 11/08/22 Hawa Torres MD PCP - General Internal Medicine 11/09/22 Taya Gonzales MD Specialist Cardiology 11/01/20 Chandan Breen PA Specialist Cardiology 11/01/20 02/20/24 Jessi Erwin DNP Specialist Nurse Practitioner Family 02/21/24 documented as of this encounter
--- OUTSIDE RECORDS SUMMARY | 2024-11-11 10:51 | XMS_ITS | Encounter Summary ---
Author Organization [facility] Address [address] [place] [address] Care Team Providers Care Facility Maintenance Supervisor Name Role Phone Salomón Lou MD Primary Care Provider Unavail able Hawa Torres MD Primary Care Provider Unavaila Taya Covington MD Unavailable [phone] Chandan Breen Unavailable Rancho Matthews MD Primary Care Provider [phone] [facility], [facility] Primary Care Provider UnavailRancho Brock MD Primary Care Provider [phone] Hawa Torres MD Primary Care Provider Unavaila Hawa Maddox MD Primary Care Provider Unavaila ble [facility], Pcp Primary Care Provider UnavailHawa Barron MD Primary Care Provider Unavaila ble [facility], Pcp Primary Care Provider UnavailHawa Barron MD Primary Care Provider Unavaila Melonie Rojas DO Primary Care Pro vider Unavailable [facility], Pcp Primary Care Provider UnavailHawa Barron MD Primary Care Provider Unavaila Jessi Cagle [facility] Unavailable [phone] Encounter Details Date Type Department Care Team Description 12/15/2014 Hospital Medical Records [address] [place] [id number] Lul Briseno MD Social History Tobacco Use Types Packs/Day [...] on filedocumented in this encounter Care Teams Facility Maintenance Supervisor Relationship Specialty Start Date End Date Salomón Lou MD PCP - General Internal Medicine 09/01/14 09/08/15 Hawa Torres MD PCP - General Internal Medicine 09/09/15 12/19/20 Rancho Matthews MD [address] [place] [address] PCP - General Internal Medicine 12/20/20 03/22/21 [facility], Pcp [address] [place] [address] PCP - General Internal Medicine 03/23/21 04/11/21 Rancho Matthews MD [address] [place] [address]776 PCP - General Internal Medicine 04/12/21 04/12/21 Hawa Torres MD [address] [place] [address] 21946 PCP - General Internal Medicine 04/13/21 06/05/21 Hawa Torres MD [address] [place] [address] PCP - General Internal Medicine 06/06/21 08/07/21 [facility], Pcp [address] [place] [address] [place] [address] PCP - General Internal Medicine 08/08/21 10/27/21 Hawa Torres MD PCP - General Internal Medicine 10/28/21 04/11/22 [facility], Pcp [address] [place] [address] [place] [address] PCP - General Internal Medicine 04/12/22 05/01/22 Hawa Torres MD [address] [place] [address]686 PCP - General Internal Medicine 05/02/22 05/21/22 Melonie Sorensen DO [address] [place] [address] PCP - General Internal Medicine 05/22/22 09/07/22 [facility], [address] [address] PCP - General Internal Medicine 09/08/22 11/08/22 Hawa Torres MD [address] [place] [address]97 PCP - General Internal Medicine 11/09/22 Taya Gonzales MD Specialist Cardiology 11/01/20 Chandan Breen PA Specialist Cardiology 11/01/20 02/20/24 Jessi Erwin DNP [address] [place] [address] Specialist Nurse Practitioner [facility] 02/21/24 documented as of this encounter
--- OUTSIDE RECORDS SUMMARY | 2024-11-11 10:51 | XMS_ITS | Encounter Summary ---
Author Organization [facility] Address [address] [place] [address] Care Team Providers Care Control Systems Technician Name Role Phone Taya Gonzales MD Unavailable [phone] Chandan Breen Unavailable Community, Pcp Primary Care Provider UnavailRancho Brock MD Primary Care Provider [phone] Hawa Torres MD Primary Care Provider Unavaila Hawa Maddox MD Primary Care Provider Unavaila ble [facility], Pcp Primary Care Provider UnavailHawa Barron MD Primary Care Provider Unavaila ble [facility], Pcp Primary Care Provider UnavailHawa Barron MD Primary Care Provider Unavaila ble Melonie Sorensen DO Primary Care Pro vider Unavailable [facility], Pcp Primary Care Provider UnavailHawa Barron MD Primary Care Provider Unavaila ble Jessi Erwin [facility] Unavailable [phone] Reason for Visit * Reason Onset Date Comments TEST RESULTS 04/06/2021 Pt submitted Pul monary response to CT scan Encounter Details Date Type Department Care Team Description 04/06/2021 Pt. Non Urgent Medical Question Cardio PVC POC 154 [address] [facility] [address] [place] [address] Taya Gonzales MD [address] [place] [address] [phone] Social History Tobacco Use Types Packs/Day Years [...] have Coronavirus / COVID-19? No / Unsure 04/08/2021 11:21 AM EDT documented as of this encounter Miscellaneous Notes * Telephone Encounter - Dino Cano - 04/07/2021 8:41 AM EDTFrom: Dana Grant To: Hipolito Gonzales Sent: 04/06/2021 6:45 PM EDT Subject: CT Scan Results See attached CT Scan results dated 04-05-21 for your review prior to our appointment in early April. Thank you. documented in this encounter Plan of Treatment Not on file documented as of this encounter Visit Diagnoses Not on filedocumented in this encounter Care Teams Control Systems Technician Relationship Specialty Start Date End Date Community, Pcp PCP - General Internal Medicine 03/23/21 04/11/21 Rancho Matthews MD [address] [place] [address] PCP - General Internal Medicine 04/12/21 04/12/21 Hawa Torres MD [address] [place] [address]807 PCP - General Internal Medicine 04/13/21 06/05/21 Hawa Torres MD [address] [place] [address] PCP - General Internal Medicine 06/06/21 08/07/21 Community, Pcp PCP - General Internal Medicine 08/08/21 10/27/21 Hawa Torres MD [address] [place] [address] PCP - General Internal Medicine 10/28/21 04/11/22 [facility], Pcp PCP - General Internal Medicine 04/12/22 05/01/22 Hawa Torres MD [address] [place] [address] PCP - General Internal Medicine 05/02/22 05/21/22 Melonie Sorensen DO [address] [place] [address]36 PCP - General Internal Medicine 05/22/22 09/07/22 [facility], Pcp PCP - General Internal Medicine 09/08/22 11/08/22 Hawa Torres MD [address] [place] [address] 40130 PCP - General Internal Medicine 11/09/22 Taya Gonzales MD Specialist Cardiology 11/01/20 Chandan Breen PA Specialist Cardiology 11/01/20 02/20/24 Jessi Erwin DNP [address] [place] [address] Specialist Nurse Practitioner Family 02/21/24 documented as of this encounter
--- OUTSIDE RECORDS SUMMARY | 2024-11-11 10:51 | XMS_ITS | Encounter Summary ---
Author Organization [facility] Address [address] [place] [address] Care Team Providers Care Track Subway Repair Supervisor Name Role Phone Taya Gonzales MD Unavailable [phone] Chandan Breen Unavailable Hawa Torres MD Primary Care Provider Unavaila ble [facility], Pcp Primary Care Provider UnavailHawa Barron MD Primary Care Provider Unavaila ble Melonie Sorensen DO Primary Care Pro vider Unavailable [facility], Pcp Primary Care Provider UnavailHawa Barron MD Primary Care Provider Unavaila ble Jessi Erwin DNP Unavailable [phone] Reason for Visit * Reason Onset Date Comments Surgery (Schedule) 11/10/2021 Encounter Details Date Type Department Care Team Description 11/10/2021 Telephone General Surgery - [address] [address] Julio C Lawler MD [address] [place] [address] Surgery (Schedule) Social History Tobacco Use Types Packs/Day Years [...] have Coronavirus / COVID-19? No / Unsure 11/11/2021 11:32 AM EST documented as of this encounter Miscellaneous Notes * Telephone Encounter - Ghislaine Turner - 11/10/2021 10:21 AM EST Spoke with Zeina at [facility]. She will send a message to Dr. Gonzales regarding clearance for this patient. Dr. Gonzales had suggested additional perioperative testing before surgery. documented in this encounter Plan of Treatment Not on file documented as of this encounter Visit Diagnoses Not on filedocumented in this encounter Care Teams Track Subway Repair Supervisor Relationship Specialty Start Date End Date Hawa Torres MD PCP - General Internal Medicine 10/28/21 04/11/22 [facility], Pcp PCP - General Internal Medicine 04/12/22 05/01/22 Hawa Torres MD PCP - General Internal Medicine 05/02/22 05/21/22 Melonie Sorensen DO PCP - General Internal Medicine 05/22/22 09/07/22 [facility], Pcp PCP - General Internal Medicine 09/08/22 11/08/22 Hawa Torres MD PCP - General Internal Medicine 11/09/22 Taya Gonzales MD Specialist Cardiology 11/01/20 Chandan Breen PA Specialist Cardiology 11/01/20 02/20/24 Jessi Erwin DNP Specialist Nurse Practitioner Family 02/21/24 documented as of this encounter
--- OUTSIDE RECORDS SUMMARY | 2024-11-11 10:51 | XMS_ITS | Encounter Summary ---
Author Organization [facility] Address [address] [place] [address] Care Team Providers Care Layaway Clerk Name Role Phone Hawa Torres MD Primary Care Provider Unavaila Taya Covington MD Unavailable [phone] Chandan Breen Unavailable [place]o Matthews MD Primary Care Provider [phone] [facility], Pcp Primary Care Provider UnavailRancho Brock MD Primary Care Provider [phone] Hawa Torres MD Primary Care Provider Unavaila Hawa Maddox MD Primary Care Provider Unavaila ble [facility], Pcp Primary Care Provider UnavailHawa Barron MD Primary Care Provider Unavaila ble [facility], Pcp Primary Care Provider UnavailHawa Barron MD Primary Care Provider Unavaila ble Melonie Sorensen DO Primary Care Pro vider Unavailable Community, Pcp Primary Care Provider Hawa Zavala MD Primary Care Provider Unavaila Jessi Cagle [facility] Unavailable [phone] Reason for Visit * Reason Onset Date Comments Appointment-Internal Referral 09/10/2015 Ne phrology Encounter Details Date Type Department Care Team Description 09/10/2015 Telephone Nephrology - [place] [address] [place] [address] [phone] Mc Barragan MD [address] [place] [address] [phone] Appointment-Internal Referral (Nephrology) Social History Tobacco Use [...] on filedocumented in this encounter Care Teams Layaway Clerk Relationship Specialty Start Date End Date Hawa Torres MD PCP - General Internal Medicine 09/09/15 12/19/20 Rancho Matthews MD [address] [place] [address] PCP - General Internal Medicine 12/20/20 03/22/21 [facility], [address] [address] PCP - General Internal Medicine 03/23/21 04/11/21 Rancho Matthews MD [address] [place] [address] PCP - General Internal Medicine 04/12/21 04/12/21 Hawa Torres MD [address] [place] [address] PCP - General Internal Medicine 04/13/21 06/05/21 Hawa Torres MD [address] [place] [address]15 PCP - General Internal Medicine 06/06/21 08/07/21 [facility], Pcp [address] [place] [address]660 PCP - General Internal Medicine 08/08/21 10/27/21 Hawa Torres MD PCP - General Internal Medicine 10/28/21 04/11/22 [facility], Pcp [address] [place] [address]684 PCP - General Internal Medicine 04/12/22 05/01/22 Hawa Torres MD [address] [place] [address] 18740 PCP - General Internal Medicine 05/02/22 05/21/22 Melonie Sorensen, DO [address] [place] [address]44 PCP - General Internal Medicine 05/22/22 09/07/22 [facility], Pcp [address] [place] [address] PCP - General Internal Medicine 09/08/22 11/08/22 Hawa Torres MD [address] [place] [address] 11814 PCP - General Internal Medicine 11/09/22 Taya Gonzales MD Specialist Cardiology 11/01/20 Chandan Breen PA Specialist Cardiology 11/01/20 02/20/24 Jessi Erwin DNP [address] [place] [address] Specialist Nurse Practitioner [facility] 02/21/24 documented as of this encounter
--- OUTSIDE RECORDS SUMMARY | 2024-11-11 10:51 | XMS_ITS | Encounter Summary ---
Author Organization [facility] Address [address] [place] [address] Care Team Providers Care Oil Recovery Unit Operator Name Role Phone Salomón Lou MD Primary Care Provider Unavail able Hawa Torres MD Primary Care Provider Unavaila Taya Covington MD Unavailable [phone] Chandan Breen Unavailable Rancho Matthews MD Primary Care Provider [phone] [facility], [facility] Primary Care Provider UnavailRancho Brock MD Primary Care Provider [phone] Hawa Torres MD Primary Care Provider Unavaila Hawa Maddox MD Primary Care Provider Unavaila ble [facility], Pcp Primary Care Provider UnavailHawa Barron MD Primary Care Provider Unavaila ble [facility], Pcp Primary Care Provider UnavailHawa Barron MD Primary Care Provider Unavaila Melonie Rojas DO Primary Care Pro vider Unavailable [facility], Pcp Primary Care Provider UnavailHawa Barron MD Primary Care Provider Unavaila Jessi Cagle [facility] Unavailable [phone] Encounter Details Date Type Department Care Team Description 12/15/2014 Hospital Medical Records [address] [place] [address] Social History Tobacco Use Types Packs/Day Years [...] on filedocumented in this encounter Care Teams Oil Recovery Unit Operator Relationship Specialty Start Date End Date Salomón Lou MD PCP - General Internal Medicine 09/01/14 09/08/15 Hawa Torres MD PCP - General Internal Medicine 09/09/15 12/19/20 Rancho Matthews MD [address] [place] [address] PCP - General Internal Medicine 12/20/20 03/22/21 [facility], Pcp [address] [place] [address] PCP - General Internal Medicine 03/23/21 04/11/21 Rancho Matthews MD [address] [place] [address]362 PCP - General Internal Medicine 04/12/21 04/12/21 Hawa Torres MD [address] [place] [address]44 PCP - General Internal Medicine 04/13/21 06/05/21 Hawa Torres MD [address] [place] [address]13 PCP - General Internal Medicine 06/06/21 08/07/21 [facility], Pcp [address] [place], [place] [address] [place] [address] PCP - General Internal Medicine 08/08/21 10/27/21 Hawa Torres MD PCP - General Internal Medicine 10/28/21 04/11/22 [facility], Pcp [address] [place] [address]806 PCP - General Internal Medicine 04/12/22 05/01/22 Hawa Torres MD [address] [place] [address] 20005 PCP - General Internal Medicine 05/02/22 05/21/22 Melonie Sorensen DO [address] [place] [address] PCP - General Internal Medicine 05/22/22 09/07/22 [facility], [address] [address] PCP - General Internal Medicine 09/08/22 11/08/22 Hawa Torres MD [address] [place] [address] 27784 PCP - General Internal Medicine 11/09/22 Taya Gonzales MD Specialist Cardiology 11/01/20 Chandan Breen PA Specialist Cardiology 11/01/20 02/20/24 Jessi Erwin DNP [address] [place] [address]004 Specialist Nurse Practitioner [facility] 02/21/24 documented as of this encounter
--- OUTSIDE RECORDS SUMMARY | 2024-11-11 10:51 | XMS_ITS | Encounter Summary ---
Author Organization [facility] Address [address] [place] [address] Care Team Providers Care Wood Polisher Name Role Phone Taya Gonzales MD Unavailable [phone] Chandan Breen Unavailable Melonie Sorensen DO Primary Care Pro vider Unavailable [facility], Pcp Primary Care Provider UnavailHawa Barron MD Primary Care Provider UnavailJessi Hogan DNP Unavailable [phone] Reason for Visit * Reason Onset Date Comments APPOINTMENT 06/12/2022 Encounter Details Date Type Department Care Team Description 06/12/2022 Telephone Cardio PVC POC [address] [place] [address] Nikhil Sorenson MD [address] [place] [address] [phone] APPOINTMENT Social History Tobacco Use Types Packs/Day [...] suspected to have Coronavirus/COVID-19? No / Unsure 05/22/2022 12:57 PM EDT documented as of this encounter Miscellaneous Notes * Telephone Encounter - Mara Mcgarry C.M.A. - 06/12/2022 2:30 PM EDT Please schedule for annual device follow-up in May or June. Thank you documented in this encounter Plan of Treatment Not on file documented as of this encounter Visit Diagnoses Not on filedocumented in this encounter Care Teams Wood Polisher Relationship Specialty Start Date End Date Melonie Sorensen DO PCP - General Internal Medicine 05/22/22 09/07/22 [facility], Pcp PCP - General Internal Medicine 09/08/22 11/08/22 Hawa Torres MD PCP - General Internal Medicine 11/09/22 Taya Gonzales MD Specialist Cardiology 11/01/20 Chandan Breen PA Specialist Cardiology 11/01/20 02/20/24 Jessi Erwin DNP Specialist Nurse Practitioner Family 02/21/24 documented as of this encounter
--- OUTSIDE RECORDS SUMMARY | 2024-11-11 10:51 | XMS_ITS | Encounter Summary ---
Author Organization [facility] Address [address] [place] [address] Care Team Providers Care Aoc Director Combat Operations Officer Name Role Phone Taya Gonzales MD Unavailable [phone] Chandan Breen Unavailable Melonie Sorensen DO Primary Care Pro vider Unavailable [facility], Pcp Primary Care Provider UnavailHawa Barron MD Primary Care Provider UnavailJessi Hogan DNP Unavailable [phone] Encounter Details Date Type Department Care Team Description 08/16/2022 Hospital Medical Records [address] [place] [address] Social History Tobacco Use Types Packs/Day Years [...] on filedocumented in this encounter Care Teams Aoc Director Combat Operations Officer Relationship Specialty Start Date End Date Melonie Sorensen DO PCP - General Internal Medicine 05/22/22 09/07/22 [facility], [facility] PCP - General Internal Medicine 09/08/22 11/08/22 Hawa Torres MD PCP - General Internal Medicine 11/09/22 Taya Gonzales MD Specialist Cardiology 11/01/20 Chandan Breen PA Specialist Cardiology 11/01/20 02/20/24 Jessi Erwin DNP Specialist Nurse Practitioner Family 02/21/24 documented as of this encounter
--- OUTSIDE RECORDS SUMMARY | 2024-11-11 10:51 | XMS_ITS | Encounter Summary ---
Author Organization [facility] Address [address] [place] [address] Care Team Providers Care Poultry Farm Laborer Name Role Phone Taya Gonzales MD Unavailable [phone] Chandan Breen Unavailable Hawa Torres MD Primary Care Provider Unavailamaya magallanes [facility], Pcp Primary Care Provider Hawa Zavala MD Primary Care Provider Unavaila Melnoie Rojas DO Primary Care Pro vider [facility], Pcp Primary Care Provider Hawa Zavala MD Primary Care Provider Unavaila Jessi Cagle DNP Unavailable [phone] Encounter Details Date Type Department Care Team Description 03/25/2022 [facility] Report Medical Records [address] [place] [id number] Abstract, Provider Social History Tobacco Use Types [...] on filedocumented in this encounter Care Teams Poultry Farm Laborer Relationship Specialty Start Date End Date Hawa Torres MD PCP - General Internal Medicine 10/28/21 04/11/22 [facility], Pcp PCP - General Internal Medicine 04/12/22 05/01/22 Hawa Torres MD PCP - General Internal Medicine 05/02/22 05/21/22 Melonie Sorensen DO PCP - General Internal Medicine 05/22/22 09/07/22 [facility], Pcp PCP - General Internal Medicine 09/08/22 11/08/22 Hawa Torres MD PCP - General Internal Medicine 11/09/22 Taya Gonzales MD Specialist Cardiology 11/01/20 Chandan Breen PA Specialist Cardiology 11/01/20 02/20/24 Jessi Erwin DNP Specialist Nurse Practitioner Family 02/21/24 documented as of this encounter
--- OUTSIDE RECORDS SUMMARY | 2024-11-11 10:51 | XMS_ITS | Clinical Summary ---
Author Organization [facility] Address [address] [place] [address] Phone Care Team Providers Care Shirt Closer Name Role Phone Unavailable Primary Care Provider Unavailabl e Medications calcitriol (ROCALTROL) 0.25 MCG capsule TOME 1 CAPSULA POR VIA ORAL TODOS [place] 90 capsule 3 08/08/2021 Active sevelamer carbonate (RENVELA) 800 MG tablet TOME CAMERON TABLETA JOANN VECES AL WOOD CON LAS COMIDAS 270 tablet 1 02/13/2024 Active Encounters Date Type Department Care Team Description 11/10/2024 Treatment [facility] [address] [address] Ryan Graf MD 11/03/2024 Treatment [facility] [address] [address] Ryan Graf MD 10/27/2024 Treatment [facility] [address] [address] Ryan Graf MD 10/20/2024 Treatment [facility] [address] [address] Ryan Graf MD 10/13/2024 Treatment [facility] [address] [address] Ryan Graf MD 10/06/2024 Treatment [facility] [address] [address] Ryan Graf MD 09/29/2024 Treatment [facility] [address] [address] Ryan Graf MD 09/16/2024 Treatment [facility] [address] [address] Ryan Graf MD 09/10/2024 Orders Only [facility] [address] [address] Ryan Graf MD 09/08/2024 Treatment [facility] [address] [address] Ryan Graf MD 09/01/2024 Treatment [facility] [address] [address] Ryan Graf MD 08/25/2024 Treatment [facility] [address] [address] Ryan Graf MD 08/11/2024 Treatment [facility] [address] [address] Ryan Graf MD from Last 3 Months [...] Final Resul t [facility] [address] [place] [address] * (ABNORMAL) SPECIAL CHEMISTRY (08/30/2022 6:00 AM EST) Hemoglobin A1C 7.3(H) 4.8 - 5.9 % [facility] 08/30/2022 6:00 AM EST 08/31/2022 6:56 AM EST Narrative [facility] - 08/30/2022 6:00 AM EST Unless otherwise specified, test(s) performed at: [facility], [address] [place], [place] [id number] ORACLE BPM DEVELOPER: Emery Muller M.D. For any questions, please call customer service at FREQUENCY:MONTHLY Resulting Agency Comment Specimen source: Blood Jt Mckeon MD LAB BLOOD BANK TEST ORDERABLES Final Result [facility] from Last 3 Months or Most Recently Relevant to Health Maintenance Insurance [facility]
--- OUTSIDE RECORDS SUMMARY | 2024-11-11 10:51 | XMS_ITS | Encounter Summary ---
Author Organization [facility] Address [address] [place] [address] Care Team Providers Care Dairy Nutritionist Name Role Phone Taya Gonzales MD Unavailable [phone] Chandan Breen Unavailable [facility], Pcp Primary Care Provider Hawa Zavala MD Primary Care Provider Unavaila elpidio [facility], Pcp Primary Care Provider Hawa Zavala MD Primary Care Provider Unavaila Melonie Rojas DO Primary Care Pro vider Unavailable [facility], Pcp Primary Care Provider Hawa Zavala MD Primary Care Provider Unavaila Jessi Cagle DNP Unavailable [phone] Encounter Details Date Type Department Care Team Description 10/21/2021 [facility] Report Medical Records [address] [place] [address] Abstract, Provider Social History Tobacco Use Types [...] have Coronavirus / COVID-19? No / Unsure 10/20/2021 3:24 PM EST documented as of this encounter Plan of Treatment Not on file documented as of this encounter Visit Diagnoses Not on filedocumented in this encounter Care Teams Dairy Nutritionist Relationship Specialty Start Date End Date Community, Pcp PCP - General Internal Medicine 08/08/21 10/27/21 Hawa Torres MD PCP - General Internal Medicine 10/28/21 04/11/22 [facility], Pcp PCP - General Internal Medicine 04/12/22 05/01/22 Hawa Torres MD PCP - General Internal Medicine 05/02/22 05/21/22 Melonie Sorensen DO PCP - General Internal Medicine 05/22/22 09/07/22 [facility], Pcp PCP - General Internal Medicine 09/08/22 11/08/22 Hawa Torres MD PCP - General Internal Medicine 11/09/22 Taya Gonzales MD Specialist Cardiology 11/01/20 Chandan Breen PA Specialist Cardiology 11/01/20 02/20/24 Jessi Erwin DNP Specialist Nurse Practitioner [facility] 02/21/24 documented as of this encounter
--- OUTSIDE RECORDS SUMMARY | 2024-11-11 10:51 | XMS_ITS | Encounter Summary ---
Author Organization [facility] Address [address] [place] [address] Care Team Providers Care Education Adviser Name Role Phone Taya Gonzales MD Unavailable [phone] Chandan Breen Unavailable [facility], Pcp Primary Care Provider UnavailRancho Brock MD Primary Care Provider [phone] Hawa Torres MD Primary Care Provider Unavaila Hawa Maddox MD Primary Care Provider Unavaila ble [facility], Pcp Primary Care Provider UnavailHawa Barron MD Primary Care Provider Unavaila ble [facility], Pcp Primary Care Provider UnavailHawa Barron MD Primary Care Provider Unavaila ble Melonie Sorensen DO Primary Care Pro vider Unavailable [facility], Pcp Primary Care Provider UnavailHawa Barron MD Primary Care Provider Unavaila ble Jessi Erwin [facility] Unavailable [phone] Encounter Details Date Type Department Care Team Description 04/08/2021 Pt. Non Urgent Medical Question Cardio PVC POC 154 300 [facility] [address] [place] [address] Taya Gonzales MD [address] [place] [address] [phone] Pericardial effusion (Primary Dx) Social History Tobacco Use Types [...] * Telephone Encounter - Ashleigh Givens - 04/08/2021 1:48 PM EDTFrom: Dana Grant To: Hipolito Gonzales Sent: 04/08/2021 1:05 PM EDT Subject: CT scan Mom had a CT scan done on 04/05/21, scan results sent to you. This scan showed enlarged heart and fluid. I just wanted to confirm that the letter of results werereceived by you and if this was something that did not need a sooner appointment with you. Thank you, Madelin documented in this encounter Plan of Treatment Not on file documented as of this encounter Results * ECHO LIMITED WITH DEFINITY IF CLINICALLY INDICATED (04/13/2021) Taya Gonzales MD CARDIOLOGY [facility] documented in this encounter Visit Diagnoses Diagnosis Pericardial effusion- Primary Unspecified disease of pericardium documented in this encounter Care Teams Education Adviser Relationship Specialty Start Date End Date Community, Pcp PCP - General Internal Medicine 03/23/21 04/11/21 Rancho Matthews MD [address] [place] [address] PCP - General Internal Medicine 04/12/21 04/12/21 Hawa Torres MD [address] [place] [address] PCP - General Internal Medicine 04/13/21 06/05/21 Hawa Torres MD [address] [place] [address] PCP - General Internal Medicine 06/06/21 08/07/21 [facility], Pcp PCP - General Internal Medicine 08/08/21 10/27/21 Hawa Torres MD [address] [place] [address] PCP - General Internal Medicine 10/28/21 04/11/22 [facility], Pcp PCP - General Internal Medicine 04/12/22 05/01/22 Hawa Torres MD [address] [place] [address] PCP - General Internal Medicine 05/02/22 05/21/22 Melonie Sorensne DO [address] [place] [address] PCP - General Internal Medicine 05/22/22 09/07/22 [facility], Pcp PCP - General Internal Medicine 09/08/22 11/08/22 Hawa Torres MD [address] [place] [address] PCP - General Internal Medicine 11/09/22 Taya Gonzales MD Specialist Cardiology 11/01/20 Chandan Breen PA Specialist Cardiology 11/01/20 02/20/24 Jessi Erwin DNP [address] [place] [address] Specialist Nurse Practitioner [facility] 02/21/24 documented as of this encounter
--- OUTSIDE RECORDS SUMMARY | 2024-11-11 10:52 | XMS_ITS | Encounter Summary ---
Author Organization [facility] Address [address] [place] [address] Care Team Providers Care Health Insurance Sales Agent Name Role Phone Lul Lou MD Primary Care Provider Unavailab Salomón Cummings MD Primary Care Provider Unavail able Hawa Torres MD Primary Care Provider Unavaila Hawa Maddox MD Primary Care Provider Unavaila Taya Covington MD Unavailable [phone] Chandan Breen Unavailable Rancho Matthews MD Primary Care Provider [phone] [facility], Pcp Primary Care Provider UnavailRancho Brock MD Primary Care Provider [phone] Hawa Torres MD Primary Care Provider Unavaila Hawa Maddox MD Primary Care Provider Unavaila ble [facility], Pcp Primary Care Provider UnavailHawa Barron MD Primary Care Provider Unavaila ble [facility], Pcp Primary Care Provider UnavailHawa Barron MD Primary Care Provider Unavaila ble Melonie Sorensen DO Primary Care Pro vider Unavailable [facility], Pcp Primary Care Provider UnavailHawa Barron MD Primary Care Provider Unavaila ble Jessi Erwin DNP Unavailable [phone] Encounter Details Date Type Department Care Team Description 10/16/2012 Orders Only Medicine/Pediatrics - [address] [phone] Lul Lou MD Social History Tobacco Use Types Packs/Day [...] on filedocumented in this encounter Care Teams Health Insurance Sales Agent Relationship Specialty Start Date End Date Lul Lou MD PCP - General Internal Medicine 05/16/12 06/06/14 Salomón Lou MD PCP - General Internal Medicine 09/01/14 09/08/15 Hawa Torres MD PCP - General Internal Medicine 09/09/15 12/19/20 Hawa Torres MD PCP - General 06/07/14 08/31/14 Rancho Matthews MD [address] [place] [address] PCP - General Internal Medicine 12/20/20 03/22/21 [facility], [address] [address] PCP - General Internal Medicine 03/23/21 04/11/21 Rancho Matthews MD [address] [place] [address] PCP - General Internal Medicine 04/12/21 04/12/21 Hawa Torres MD [address] [place] [address] PCP - General Internal Medicine 04/13/21 06/05/21 Hawa Torres MD [address] [place] [address] PCP - General Internal Medicine 06/06/21 08/07/21 [facility], Pcp [address] [place] [address] PCP - General Internal Medicine 08/08/21 10/27/21 Hawa Torres MD PCP - General Internal Medicine 10/28/21 04/11/22 [facility], Pcp [address] [place] [address] PCP - General Internal Medicine 04/12/22 05/01/22 Hawa Torres MD [address] [place] [address] PCP - General Internal Medicine 05/02/22 05/21/22 Melonie Sorensen, [address] [place] [address] PCP - General Internal Medicine 05/22/22 09/07/22 [facility], Pcp [address] [place] [address] PCP - General Internal Medicine 09/08/22 11/08/22 Hawa Torres MD [address] [place] [address] PCP - General Internal Medicine 11/09/22 Taya Gonzales MD Specialist Cardiology 11/01/20 Chandan Breen PA Specialist Cardiology 11/01/20 02/20/24 Jessi Erwin, KITTY [address] [place] [address] Specialist Nurse Practitioner [facility] 02/21/24 documented as of this encounter
--- OUTSIDE RECORDS SUMMARY | 2024-11-11 10:52 | XMS_ITS | Encounter Summary ---
Author Organization [facility] Address [address] [place] [phone] Phone Care Team Providers Care Rotary Operator Name Role Phone Unavailable Primary Care Provider Unavailabl e Encounter Details Date Type Department Care Team (Late st Contact Info) Description 10/27/2024 Treatment [facility] [address] [address] Aldo Rice MD [address] [address] Social History Tobacco Use Types [...] care for end stage renal disease. Attending Still Tender: ALDO RICE MD Dialysis Location: [facility] Schedule: Shift: 1 OVERVIEW Patient is [...]
--- OUTSIDE RECORDS SUMMARY | 2024-11-11 10:52 | XMS_ITS | Encounter Summary ---
Author Organization [facility] Address [address] [place] [address] Care Team Providers Care Workers' Compensation Hearings Officer Name Role Phone Taya Gonzales MD Unavailable [phone] Chandan Breen Unavailable Hawa Torres MD Primary Care Provider Unavaila Hawa Maddox MD Primary Care Provider Unavaila ble [facility], Pcp Primary Care Provider UnavailHawa Barron MD Primary Care Provider Unavaila ble [facility], Pcp Primary Care Provider UnavailHawa Barron MD Primary Care Provider Unavaila ble Melonie Sorensen DO Primary Care Pro vider Unavailable [facility], Pcp Primary Care Provider Hawa Zavala MD Primary Care Provider Unavaila ble Jessi Erwin [facility] Unavailable [phone] Reason for Visit * Reason Onset Date Comments APPOINTMENT 06/01/2021 Encounter Details Date Type Department Care Team Description 06/01/2021 Telephone Cardio PVC POC 154 [address] [facility] [address] [place] [address] Nikhil Sorenson MD [address] [place] [address] [phone] APPOINTMENT Social History Tobacco Use Types Packs/Day [...] please schedule patient for a device check. (Slovak speaking) documented in this encounter Plan of Treatment Not on file documented as of this encounter Visit Diagnoses Not on filedocumented in this encounter Care Teams Workers' Compensation Hearings Officer Relationship Specialty Start Date End Date Hawa Torres MD PCP - General Internal Medicine 04/13/21 06/05/21 Hawa Torres MD PCP - General Internal Medicine 06/06/21 08/07/21 [facility], Pcp PCP - General Internal Medicine [...]
--- OUTSIDE RECORDS SUMMARY | 2024-11-11 10:52 | XMS_ITS | Encounter Summary ---
Author Organization [facility] Address [address] [place] [phone] Phone Care Team Providers Care Etl Tester Name Role Phone Unavailable Primary Care Provider Unavailabl e Encounter Details Date Type Department Care Team (Late st Contact Info) Description 11/03/2024 Treatment [facility] [address] [address] Aldo Rice MD [address] [address] Social History Tobacco Use Types [...] care for end stage renal disease. Attending Municipal Engineer: ALDO RICE MD Dialysis Location: [facility] Schedule: Shift: 1 HOME MEDICATIONS Current [...]
--- OUTSIDE RECORDS SUMMARY | 2024-11-11 10:52 | XMS_ITS | Encounter Summary ---
Author Organization [facility] Address [address] [place] [address] Care Team Providers Care Kaiwhakahaere Name Role Phone Hawa Torres MD Primary Care Provider Unavaila Taya Covington MD Unavailable [phone] Chandan Breen Unavailable Rancho Matthews MD Primary Care Provider [phone] [facility], Pcp Primary Care Provider UnavailRancho Brock MD Primary Care Provider [phone] Hawa Torres MD Primary Care Provider Unavaila Hawa Maddox MD Primary Care Provider Unavaila elpidio [facility], Pcp Primary Care Provider UnavailHawa Barron MD Primary Care Provider Unavaila ble [facility], Pcp Primary Care Provider Hawa Zavala MD Primary Care Provider Unavaila ble Melonie Sorensen DO Primary Care Pro vider Unavailable [facility], Pcp Primary Care Provider UnavailHawa Barron MD Primary Care Provider Unavaila Jessi Cagle [facility] Unavailable [phone] Encounter Details Date Type Department Care Team Description 04/22/2020 Telephone Dermatology - [address] [address] Leda Lucas PA-C Social History [...] on filedocumented in this encounter Care Teams Kaiwhakahaere Relationship Specialty Start Date End Date Hawa Torres MD PCP - General Internal Medicine 09/09/15 12/19/20 Rancho Matthews MD [address] [place] [address] PCP - General Internal Medicine 12/20/20 03/22/21 [facility], [address] [address] PCP - General Internal Medicine 03/23/21 04/11/21 Rancho Matthews MD [address] [place] [address] PCP - General Internal Medicine 04/12/21 04/12/21 Hawa Torres MD [address] [place] [address] PCP - General Internal Medicine 04/13/21 06/05/21 Hawa Torres MD [address] [place] [address] PCP - General Internal Medicine 06/06/21 08/07/21 [facility], Pcp [address] [place] [address] PCP - General Internal Medicine 08/08/21 10/27/21 Hawa Torres MD PCP - General Internal Medicine 10/28/21 04/11/22 [facility], Pcp [address] [place] [address] PCP - General Internal Medicine 04/12/22 05/01/22 Hawa Torres MD [address] [place] [address] PCP - General Internal Medicine 05/02/22 05/21/22 Melonie Sorensen, DO [address] [place] [address] PCP - General Internal Medicine 05/22/22 09/07/22 [facility], Pcp [address] [place] [address] PCP - General Internal Medicine 09/08/22 11/08/22 Hawa Torres MD [address] [place] [address] PCP - General Internal Medicine 11/09/22 Taya Gonzales MD Specialist Cardiology 11/01/20 Chandan Breen PA Specialist Cardiology 11/01/20 02/20/24 Jessi Erwin DNP [address] [place] [address] Specialist Nurse Practitioner [facility] 02/21/24 documented as of this encounter
--- OUTSIDE RECORDS SUMMARY | 2024-11-11 10:52 | XMS_ITS | Encounter Summary ---
Author Organization [facility] Address [address] [place] [address] Care Team Providers Care Feed Mixer Helper Name Role Phone Unavailable Primary Care Provider Unavailabl e Reason for Visit * Reason Onset Date Comments faxed office note 10/22/2024 Encounter Details Date Type Department Care Team (Late Contact Info) Description 10/22/2024 Telephone [facility] [address] [facility] [address] [place] [phone] Jessi Erwin, ANTONINO [address] [place] [address] faxed office note Social History Tobacco Use [...] faxed note to [facility]. Guy Dickens [place] [facility] [phone] documented in this encounter Plan of Treatment Upcoming Encounters Date Type Department Care Team (Late Contact Info) Description 02/04/2025 3:30 PM EDT Ancillary Procedure [facility] 154 [address] [facility] 154 [place] [phone] 02/19/2025 3:40 PM EDT Office Visit Endocrinology - [address] [address] Lucille Clarke PA [address] [place] [address] 03/31/2025 3:15 PM EDT Office Visit [facility] Hematology Oncology [address] [place] [phone] Cullen Gibson MD [address] [place] [phone] 04/09/2025 3:40 PM EDT Appointment Radiology Department - [address] [address] 04/23/2025 10:50 AM EDT Office Visit [facility] 154 300 [facility] [address] [place] [phone] Taya Gonzales MD [address] [place] [address] documented as of this encounter Visit Diagnoses Not on filedocumented in this encounter
--- OUTSIDE RECORDS SUMMARY | 2024-11-11 10:52 | XMS_ITS | Encounter Summary ---
Author Organization [facility] Address [address] [place] [address] Care Team Providers Care Inventory Control Associate Name Role Phone Hawa Torres MD Primary Care Provider Unavaila Taya Covington MD Unavailable +[phone] Chandan Breen Unavailable + Rancho Matthews MD Primary Care Provider + [facility], Pcp Primary Care Provider UnavailRancho Brock MD Primary Care Provider +[phone] Hawa Torres MD Primary Care Provider Unavaila Hawa Maddox MD Primary Care Provider Unavaila elpidio [facility], Pcp Primary Care Provider UnavailHawa Barron MD Primary Care Provider Unavaila ble [facility], Pcp Primary Care Provider Hawa Zavala MD Primary Care Provider Unavaila Melonie Rojas DO Primary Care Pro vider Unavailable Community, Pcp Primary Care Provider Hawa Zavala MD Primary Care Provider Unavaila Jessi Cagle [facility] Unavailable + [phone] Encounter Details Date Type Department Care Team Description 04/12/2017 Hospital Medical Records [address] [place] [address] Cecilio Singh MD [address] [place] [address] [phone] Social History Tobacco Use Types Packs/Day Years [...] on filedocumented in this encounter Care Teams Inventory Control Associate Relationship Specialty Start Date End Date Hawa Torres MD PCP - General Internal Medicine 09/09/15 12/19/20 Rancho Matthews MD [address] [place] [address] PCP - General Internal Medicine 12/20/20 03/22/21 [facility], Pcp [address] [place] [address] PCP - General Internal Medicine 03/23/21 04/11/21 Rancho Matthews MD [address] [place] [address] PCP - General Internal Medicine 04/12/21 04/12/21 Hawa Torres MD [address] [place] [address] PCP - General Internal Medicine 04/13/21 06/05/21 Hawa Torres MD [address] [place] [address] 78273 PCP - General Internal Medicine 06/06/21 08/07/21 [facility], Pcp [address] [place], [place] [address] [place] [address] PCP - General Internal Medicine 08/08/21 10/27/21 Hawa Torres MD PCP - General Internal Medicine 10/28/21 04/11/22 [facility], Pcp [address] [place] [address] 27548 PCP - General Internal Medicine 04/12/22 05/01/22 Hawa Torres MD [address] [place] [address] 58159 PCP - General Internal Medicine 05/02/22 05/21/22 Melonie Sorensen DO [address] [place] [address]27 PCP - General Internal Medicine 05/22/22 09/07/22 [facility], [address] [address] PCP - General Internal Medicine 09/08/22 11/08/22 Hawa Torres MD [address] [place] [address] 7[address] PCP - General Internal Medicine 11/09/22 Taya Gonzales MD Specialist Cardiology 11/01/20 Chandan Breen PA Specialist Cardiology 11/01/20 02/20/24 Jessi Erwin DNP [address] [place] [address] 27014 Specialist Nurse Practitioner Family 02/21/24 documented as of this encounter
--- OUTSIDE RECORDS SUMMARY | 2024-11-11 10:52 | XMS_ITS | Encounter Summary ---
Author Organization [facility] Address [address] [place] [address] Care Team Providers Care Liquefier Name Role Phone Lul Lou MD Primary Care Provider Unavailab Salomón Cummings MD Primary Care Provider Unavail able Hawa Torres MD Primary Care Provider Unavaila Hawa Maddox MD Primary Care Provider Unavaila Taya Covington MD Unavailable [phone] Chandan Breen Unavailable Rancho Matthews MD Primary Care Provider [phone] [facility], Pcp Primary Care Provider UnavailRancho Brock MD Primary Care Provider [phone] Hawa Torres MD Primary Care Provider Unavaila Hawa Maddox MD Primary Care Provider Unavaila ble [facility], Pcp Primary Care Provider UnavailHawa Barron MD Primary Care Provider Unavaila ble [facility], Pcp Primary Care Provider UnavailHawa Barron MD Primary Care Provider Unavaila ble Melonie Sorensen DO Primary Care Pro vider Unavailable Community, Pcp Primary Care Provider UnavailHawa Barron MD Primary Care Provider Unavaila ble Jessi Erwin DNP Unavailable [phone] Encounter Details Date Type Department Care Team Description 11/22/2012 Business Doc Medical Records [address] [place] [address] Abstract, Provider Social History Tobacco Use Types [...] on filedocumented in this encounter Care Teams Liquefier Relationship Specialty Start Date End Date Lul Lou MD PCP - General Internal Medicine 05/16/12 06/06/14 Salomón Lou MD PCP - General Internal Medicine 09/01/14 09/08/15 Hawa Torres MD PCP - General Internal Medicine 09/09/15 12/19/20 Hawa Torres MD PCP - General 06/07/14 08/31/14 Rancho Matthews MD [address] [place], [place] [phone] PCP - General Internal Medicine 12/20/20 03/22/21 [facility], [address] [address] PCP - General Internal Medicine 03/23/21 04/11/21 Rancho Matthews MD [address] [place] [address] PCP - General Internal Medicine 04/12/21 04/12/21 Hawa Torres MD [address] [place] [address] PCP - General Internal Medicine 04/13/21 06/05/21 Hawa Torres MD [address] [place] [address]109 PCP - General Internal Medicine 06/06/21 08/07/21 [facility], [address] [address] PCP - General Internal Medicine 08/08/21 10/27/21 Hawa Torres MD PCP - General Internal Medicine 10/28/21 04/11/22 [facility], Pcp [address] [place] [address] PCP - General Internal Medicine 04/12/22 05/01/22 Hawa Torres MD [address] [place] [address] 8[address]82 PCP - General Internal Medicine 05/02/22 05/21/22 Melonie Sorensen DO [address] [place] [address] 31661 PCP - General Internal Medicine 05/22/22 09/07/22 [facility], Pcp [address] [place] [address] PCP - General Internal Medicine 09/08/22 11/08/22 Hawa Torres MD [address] [place] [address]238 PCP - General Internal Medicine 11/09/22 Taya Gonzales MD Specialist Cardiology 11/01/20 Chandan Breen PA Specialist Cardiology 11/01/20 02/20/24 Jessi Erwin, KITTY [address] [place] [address] Specialist Nurse Practitioner [facility] 02/21/24 documented as of this encounter
--- OUTSIDE RECORDS SUMMARY | 2024-11-11 10:52 | XMS_ITS | Encounter Summary ---
Author Organization [facility] Address [address] [place] [address] Care Team Providers Care Founder And Ceo Name Role Phone Taya Gonzales MD Unavailable [phone] Chandan Breen Unavailable Melonie Sorensen DO Primary Care Pro vider Unavailable [facility], Pcp Primary Care Provider UnavailHawa Barron MD Primary Care Provider UnavailJessi Hogan DNP Unavailable [phone] Reason for Visit * Reason Onset Date Comments APPOINTMENT 08/30/2022 Encounter Details Date Type Department Care Team Description 08/30/2022 Telephone Cardio PVC POC [address] [place] [address] Nikhil Sorenson MD [address] [place] [address] [phone] APPOINTMENT Social History Tobacco Use Types Packs/Day [...] encounter Miscellaneous Notes * Telephone Encounter - Julienne Ramos - 08/31/2022 10:17 AM EST Device check scheduled on , 2021 at 2:30 PM. Spoke with Dana's daughter Madelin and mailed appointment reminder. * Telephone Encounter - Mara Mcgarry C.M.A. - 08/30/2022 2:34 PM EST Patient overdue for in office device check. Please call and schedule. Uruguayan speaking. documented in this encounter Plan of Treatment Not on file documented as of this encounter Visit Diagnoses Not on filedocumented in this encounter Care Teams Founder And Ceo Relationship Specialty Start Date End Date Melonie Sorensen DO PCP - General Internal Medicine 05/22/22 09/07/22 [facility], Pcp PCP - General Internal Medicine 09/08/22 11/08/22 Hawa Torres MD PCP - General Internal Medicine 11/09/22 Taya Gonzales MD Specialist Cardiology 11/01/20 Chandan Breen PA Specialist Cardiology 11/01/20 02/20/24 Jessi Erwin DNP Specialist Nurse Practitioner Family 02/21/24 documented as of this encounter
--- OUTSIDE RECORDS SUMMARY | 2024-11-11 10:52 | XMS_ITS | Encounter Summary ---
Author Organization [facility] Address [address] [place] [address] Care Team Providers Care Buckle Sewer Machine Name Role Phone Taya Gonzales MD Unavailable [phone] Chandan Breen Unavailable Community, Pcp Primary Care Provider Hawa Zavala MD Primary Care Provider UnavailJessi Hogan DNP Unavailable [phone] Encounter Details Date Type Department Care Team Description 09/13/2022 [facility] Medical Records [address] [place] [address] Abstract, Provider Social History Tobacco Use Types [...] on filedocumented in this encounter Care Teams Buckle Sewer Machine Relationship Specialty Start Date End Date Community, Pcp PCP - General Internal Medicine 09/08/22 11/08/22 Hawa Torres MD PCP - General Internal Medicine 11/09/22 Taya Gonzales MD Specialist Cardiology 11/01/20 Chandan Breen PA Specialist Cardiology 11/01/20 02/20/24 Jessi Erwin DNP Specialist Nurse Practitioner [facility] 02/21/24 documented as of this encounter
--- OUTSIDE RECORDS SUMMARY | 2024-11-11 10:52 | XMS_ITS | Encounter Summary ---
Author Organization [facility] Address [address] [place] [address] Care Team Providers Care Ground Equipment Mechanic Name Role Phone Hawa Torres MD Primary Care Provider UnavailTaya Lira MD Unavailable [phone] Chandan Breen Unavailable Rancho Matthews MD Primary Care Provider + [facility], [facility] Primary Care Provider UnavailRancho Brock MD Primary Care Provider +[phone] aHwa Torres MD Primary Care Provider Unavaila Hawa Maddox MD Primary Care Provider Unavaila elpidio [facility], Pcp Primary Care Provider UnavailHawa Barron MD Primary Care Provider Unavaila ble [facility], Pcp Primary Care Provider Hawa Zavala MD Primary Care Provider Unavaila Melonie Rojas DO Primary Care Pro vider Unavailable Community, Pcp Primary Care Provider Hawa Zavala MD Primary Care Provider Unavaila Jessi Cagle [facility] Unavailable [phone] Encounter Details Date Type Department Care Team Description 04/29/2020 Hospital Medical Records [address] [place] [address] Juan Ramon Egan Social History Tobacco Use [...] on filedocumented in this encounter Care Teams Ground Equipment Mechanic Relationship Specialty Start Date End Date Hawa Torres MD PCP - General Internal Medicine 09/09/15 12/19/20 Rancho Matthews MD [address] [place] [address] PCP - General Internal Medicine 12/20/20 03/22/21 [facility], Pcp [address] [place] [address]707 PCP - General Internal Medicine 03/23/21 04/11/21 Rancho Matthews MD [address] [place] [address]403 PCP - General Internal Medicine 04/12/21 04/12/21 Hawa Torres MD [address] [place] [address] 60473 PCP - General Internal Medicine 04/13/21 06/05/21 Hawa Torres MD [address] [place] [address] 41066 PCP - General Internal Medicine 06/06/21 08/07/21 [facility], Pcp [address] [place] [address] 28934 PCP - General Internal Medicine 08/08/21 10/27/21 Hawa Torres MD PCP - General Internal Medicine 10/28/21 04/11/22 [facility], Pcp [address] [place] [address] 80086 PCP - General Internal Medicine 04/12/22 05/01/22 Hawa Torres MD [address] [place] [address] 6[address]18 PCP - General Internal Medicine 05/02/22 05/21/22 Melonie Sorensen DO [address] [place] [address] 41726 PCP - General Internal Medicine 05/22/22 09/07/22 [facility], Pcp [address] [place] [address] 9[address]30 PCP - General Internal Medicine 09/08/22 11/08/22 Hawa Torres MD [address] [place], [place] [phone] PCP - General Internal Medicine 11/09/22 Taya Gonzales MD Specialist Cardiology 11/01/20 Chandan Breen PA Specialist Cardiology 11/01/20 02/20/24 Jessi Erwin, KITTY [address] [place] [address]68 Specialist Nurse Practitioner [facility] 02/21/24 documented as of this encounter
--- OUTSIDE RECORDS SUMMARY | 2024-11-11 10:52 | XMS_ITS | Encounter Summary ---
Author Organization [facility] Address [address] [place] [address] Care Team Providers Care Cartridge Feeder Name Role Phone Taya Gonzales MD Unavailable [phone] Chandan Breen Unavailable Hawa Torres MD Primary Care Provider Unavaila ble [facility], Pcp Primary Care Provider UnavailHawa Barron MD Primary Care Provider Unavaila ble [facility], Pcp Primary Care Provider UnavailHawa Barron MD Primary Care Provider Unavaila ble Edwin Sorensenabela DO Primary Care Pro vider Unavailable [facility], Pcp Primary Care Provider Hawa Zavala MD Primary Care Provider Unavaila ble Jessi Erwin DNP Unavailable [phone] Reason for Visit * Reason Onset Date Comments other 06/06/2021 Encounter Details Date Type Department Care Team Description 06/06/2021 Telephone Cardio PVC POC 154 [address] [facility] [address] [place] [address] Taya Gonzales MD [address] [place] [address] [phone] other Social History Tobacco Use Types Packs/Day [...] on filedocumented in this encounter Care Teams Cartridge Feeder Relationship Specialty Start Date End Date Hawa Torres MD PCP - General Internal Medicine 06/06/21 08/07/21 [facility], Pcp PCP - General Internal Medicine 08/08/21 10/27/21 Hawa Torres MD PCP - General Internal Medicine 10/28/21 04/11/22 [facility], Pcp PCP - General Internal Medicine 04/12/22 [...]
--- OUTSIDE RECORDS SUMMARY | 2024-11-11 10:52 | XMS_ITS | Encounter Summary ---
Author Organization [facility] Address [address] [place] [address] Care Team Providers Care Sterilisation Technician Name Role Phone Hawa Torres MD Primary Care Provider Unavaila Taya Covington MD Unavailable [phone] Chandan Breen Unavailable Rancho Matthews MD Primary Care Provider +[phone] [facility], Pcp Primary Care Provider UnavailRancho Brock MD Primary Care Provider +[phone] Hawa Torres MD Primary Care Provider Unavaila Hawa Maddox MD Primary Care Provider Unavaila ble [facility], Pcp Primary Care Provider UnavailHawa Barron MD Primary Care Provider Unavaila ble [facility], Pcp Primary Care Provider Hawa Zavala MD Primary Care Provider Unavaila ble Melonie Sorensen DO Primary Care Pro vider Unavailable Community, Pcp Primary Care Provider Hawa Zavala MD Primary Care Provider Unavaila Jessi Cagle [facility] Unavailable [phone] Encounter Details Date Type Department Care Team Description 04/28/2020 Pt. Non Urgent Medic al Question Dermatology - [address] [phone] Leda Lucas PA-C Social History [...] on filedocumented in this encounter Care Teams Sterilisation Technician Relationship Specialty Start Date End Date Hawa Torres MD PCP - General Internal Medicine 09/09/15 12/19/20 Rancho Matthews MD [address] [place] [address] PCP - General Internal Medicine 12/20/20 03/22/21 [facility], Pcp [address] [place], [place] [phone] PCP - General Internal Medicine 03/23/21 04/11/21 Rancho Matthews MD [address] [place] [address] PCP - General Internal Medicine 04/12/21 04/12/21 Hawa Torres MD [address] [place] [address] PCP - General Internal Medicine 04/13/21 06/05/21 Hawa Torres MD [address] [place] [address] PCP - General Internal Medicine 06/06/21 08/07/21 [facility], Pcp [address] [place] [address] PCP - General Internal Medicine 08/08/21 10/27/21 Hawa Torres MD PCP - General Internal Medicine 10/28/21 04/11/22 [facility], Pcp [address] [place] [address] PCP - General Internal Medicine 04/12/22 05/01/22 Hawa Torres MD [address] [place] [address] 41584 PCP - General Internal Medicine 05/02/22 05/21/22 Melonie Sorensen DO [address] [place] [address] PCP - General Internal Medicine 05/22/22 09/07/22 [facility], [address] [address] PCP - General Internal Medicine 09/08/22 11/08/22 Hawa Torres MD [address] [place] [address] PCP - General Internal Medicine 11/09/22 Taya Gonzales MD Specialist Cardiology 11/01/20 Chandan Breen PA Specialist Cardiology 11/01/20 02/20/24 Jessi Erwin DNP [address] [place] [address] Specialist Nurse Practitioner [facility] 02/21/24 documented as of this encounter
--- OUTSIDE RECORDS SUMMARY | 2024-11-11 10:52 | XMS_ITS | Encounter Summary ---
Author Organization [facility] Address [address] [place] [address] Care Team Providers Care Licensing Coordinator Name Role Phone Hawa Torres MD Primary Care Provider UnavailTaya Lira MD Unavailable + Chandan Breen Unavailable + Rancho Matthews MD Primary Care Provider + [facility], [facility] Primary Care Provider UnavailRancho Brock MD Primary Care Provider + Hawa Torres MD Primary Care Provider Unavaila Hawa Maddox MD Primary Care Provider Unavaila elpidio [facility], Pcp Primary Care Provider UnavailHawa Barron MD Primary Care Provider Unavaila ble [facility], Pcp Primary Care Provider Hawa Zavala MD Primary Care Provider Unavaila Melonie Rojas DO Primary Care Pro vider Unavailable [facility], Pcp Primary Care Provider Hawa Zavala MD Primary Care Provider Unavaila Jessi Cagle [facility] Unavailable + Encounter Details Date Type Department Care Team Description 12/22/2016 Hospital Medical Records [address] [place] [address] Social History Tobacco Use Types Packs/Day Years [...] on filedocumented in this encounter Care Teams Licensing Coordinator Relationship Specialty Start Date End Date Hawa Torres MD PCP - General Internal Medicine 09/09/15 12/19/20 Rancho Matthews MD [address] [place] [address] PCP - General Internal Medicine 12/20/20 03/22/21 [facility], Pcp [address] [place] [address] 330[address] PCP - General Internal Medicine 03/23/21 04/11/21 Rancho Matthews MD [address] [place] [address]31 PCP - General Internal Medicine 04/12/21 04/12/21 Hawa Torres MD [address] [place] [address] PCP - General Internal Medicine 04/13/21 06/05/21 Hawa Torres MD [address] [place] [address]91 PCP - General Internal Medicine 06/06/21 08/07/21 [facility], Pcp [address] [place] [address]85 PCP - General Internal Medicine 08/08/21 10/27/21 Hawa Torres MD PCP - General Internal Medicine 10/28/21 04/11/22 [facility], Pcp [address] [place] [address] PCP - General Internal Medicine 04/12/22 05/01/22 Hawa Torres MD [address] [place] [address]329 PCP - General Internal Medicine 05/02/22 05/21/22 Melonie Sorensen DO [address] [place] [address] PCP - General Internal Medicine 05/22/22 09/07/22 [facility], Pcp [address] [place] [address] PCP - General Internal Medicine 09/08/22 11/08/22 Hawa Torres MD [address] [place] [address]1883 PCP - General Internal Medicine 11/09/22 Taya Gonzales MD Specialist Cardiology 11/01/20 Chandan Breen PA Specialist Cardiology 11/01/20 02/20/24 Jessi Erwin, KITTY [address] [place] [address] Specialist Nurse Practitioner Family 02/21/24 documented as of this encounter
--- OUTSIDE RECORDS SUMMARY | 2024-11-11 10:52 | XMS_ITS | Encounter Summary ---
Author Organization [facility] Address [address] [place] [address] Care Team Providers Care Paper Cutting Machine Operator Name Role Phone Hawa Torres MD Primary Care Provider Unavaila Taya Covington MD Unavailable [phone] Chandan Breen Unavailable Rancho Matthews MD Primary Care Provider + [facility] Primary Care Provider UnavailRancho Brock MD Primary Care Provider +[phone] Hawa Torres MD Primary Care Provider Unavaila Hawa Maddox MD Primary Care Provider Unavaila elpidio [facility] Pcp Primary Care Provider Hawa Zavala MD Primary Care Provider Unavaila ble [facility], [facility]cp Primary Care Provider Hawa Zavala MD Primary Care Provider Unavaila Melonie Rojas DO Primary Care Pro vider Unavailable [facility], [facility]cp Primary Care Provider Hawa Zavala MD Primary Care Provider Unavaila Jessi Cagle [facility] Unavailable + [phone] Encounter Details Date Type Department Care Team Description 04/09/2020 Pt. Non Urgent Medical Question Medicine/Pediatrics - [address] [phone] Hawa Torres MD Social History Tobacco Use [...] Progress Notes * Miriam Mtz M.A. - 04/09/2020 9:26 AM EDTFrom: Dana Grant To: Hawa Torres MD Sent: 04/09/2020 9:25 AM EDT Subject: Lasix Good morning, As of yesterday, mom's weight was 135lb, which was her weight when she was discharged from hospital. Blood sugar and BP have also looked good. Should I have her stop the additional daily half a dose of Lasix or not? I also am looking to get someone to come in and help mom and dad at home while I'm at work. Could Boogiee get a letter from indicating mom's medical problems which restrict her from exertions ofdaily household activities. IMadelin am available by phone if further conversation is needed. Thank you! documented in this encounter Plan of Treatment Not on file documented as of this encounter Visit Diagnoses Not on filedocumented in this encounter Care Teams Paper Cutting Machine Operator Relationship Specialty Start Date End Date Hawa Torres MD PCP - General Internal Medicine 09/09/15 12/19/20 Rancho Matthews MD [address] [place] [address] PCP - General Internal Medicine 12/20/20 03/22/21 [facility] [address] [address] PCP - General Internal Medicine 03/23/21 04/11/21 Rancho Matthews MD [address] [place] [address] PCP - General Internal Medicine 04/12/21 04/12/21 Hawa Torres MD [address] [place] [address] 11406 PCP - General Internal Medicine 04/13/21 06/05/21 Hawa Torres MD [address] [place] [address] 42949 PCP - General Internal Medicine 06/06/21 08/07/21 [facility] Pcp [address] [place] [address] 21432 PCP - General Internal Medicine 08/08/21 10/27/21 Hawa Torres MD PCP - General Internal Medicine 10/28/21 04/11/22 [facility], Pcp [address] [place] [address] 16411 PCP - General Internal Medicine 04/12/22 05/01/22 Hawa Torres MD [address] [place] [address] 09386 PCP - General Internal Medicine 05/02/22 05/21/22 Melonie Sorensen, DO [address] [place] [address] PCP - General Internal Medicine 05/22/22 09/07/22 [facility], Pcp [address] [place] [address]89 PCP - General Internal Medicine 09/08/22 11/08/22 Hawa Torres MD [address] [place] [address] PCP - General Internal Medicine 11/09/22 Taya Gonzales MD Specialist Cardiology 11/01/20 Chandan Breen PA Specialist Cardiology 11/01/20 02/20/24 Jessi Erwin DNP [address] [place] [address] Specialist Nurse Practitioner [facility] 02/21/24 documented as of this encounter
--- OUTSIDE RECORDS SUMMARY | 2024-11-11 10:52 | XMS_ITS | Encounter Summary ---
Author Organization [facility] Address [address] [place] [address] Care Team Providers Care Washing Machine Operator Name Role Phone Lul Lou MD Primary Care Provider Unavailab Lul Cummings MD Primary Care Provider UnavailSalomón Garibay MD Primary Care Provider Unavail able Hawa Torres MD Primary Care Provider Unavaila Hawa Maddox MD Primary Care Provider Unavaila Taya Covington MD Unavailable [phone] Chandan Breen Unavailable Rancho Matthews MD Primary Care Provider [phone] [facility], Pcp Primary Care Provider UnavailRancho Brock MD Primary Care Provider [phone] Hawa Torres MD Primary Care Provider Unavaila Hawa Maddox MD Primary Care Provider Unavaila ble [facility], Pcp Primary Care Provider UnavailHawa Barron MD Primary Care Provider Unavaila ble [facility], Pcp Primary Care Provider UnavailHawa Barron MD Primary Care Provider Unavaila ble Melonie Sorensen DO Primary Care Pro vider Unavailable [facility], Pcp Primary Care Provider UnavailHawa Barron MD Primary Care Provider Unavaila ble Jessi Erwin DNP Unavailable [phone] Encounter Details Date Type Department Care Team Description 08/10/2011 Grinding Room Inspector Report Medical Records [address] [place] [address] Reed Houston MD Social History Tobacco Use Types Packs/Day Years Used Date Smoking Tobacco: Never Assessed Alcohol Habits Answer Date Recorded How often [...] on filedocumented in this encounter Care Teams Washing Machine Operator Relationship Specialty Start Date End Date Lul Lou MD PCP - General Internal Medicine 04/29/12 05/15/12 Lul Lou MD PCP - General Internal Medicine 05/16/12 06/06/14 Salomón Lou MD PCP - General Internal Medicine 09/01/14 09/08/15 Hawa Torres MD PCP - General Internal Medicine 09/09/15 12/19/20 Hawa Torres MD PCP - General 06/07/14 08/31/14 Rancho Matthews MD [address] [place] [address] PCP - General Internal Medicine 12/20/20 03/22/21 [facility], [address] [address] PCP - General Internal Medicine 03/23/21 04/11/21 Rancho Matthews MD [address] [place] [address] 42696 PCP - General Internal Medicine 04/12/21 04/12/21 Hawa Torres MD [address] [place] [address]1940 PCP - General Internal Medicine 04/13/21 06/05/21 Hawa Torres MD [address] [place] [address] 26563 PCP - General Internal Medicine 06/06/21 08/07/21 [facility], [address] [place] [address] PCP - General Internal Medicine 08/08/21 10/27/21 Hawa Torres MD PCP - General Internal Medicine 10/28/21 04/11/22 [facility], Pcp [address] [place] [address]331 PCP - General Internal Medicine 04/12/22 05/01/22 Hawa Torres MD [address] [place] [address] 17930 PCP - General Internal Medicine 05/02/22 05/21/22 Melonie Sorensen, [address] [place] [address] 38811 PCP - General Internal Medicine 05/22/22 09/07/22 [facility], Pcp [address] [place] [address] 97186 PCP - General Internal Medicine 09/08/22 11/08/22 Hawa Torres MD [address] [place] [address] 13814 PCP - General Internal Medicine 11/09/22 Taya Gonzales MD Specialist Cardiology 11/01/20 Chandan Breen PA Specialist Cardiology 11/01/20 02/20/24 Jessi Erwin DNP [address] [place] [address] 16806 Specialist Nurse Practitioner Family 02/21/24 documented as of this encounter
--- OUTSIDE RECORDS SUMMARY | 2024-11-11 10:52 | XMS_ITS | Encounter Summary ---
Author Organization [facility] Address [address] [facility] [address] [place] [address] Care Team Providers Care Wheelchair Rental Clerk Name Role Phone Unavailable Primary Care Provider Unavailabl e Encounter Details Date Type Department Care Team (Latest Contact Info) Description 05/28/2024 Treatment Aldo Rice MD [address] [facility] [address] [place] [address] Social History Tobacco Use Types [...] care for end stage renal disease. Attending Furniture Manager: ALDO RICE MD Dialysis Location: [facility] Schedule: Shift: 1 OVERVIEW Patient [...]
--- OUTSIDE RECORDS SUMMARY | 2024-11-11 10:52 | XMS_ITS | Encounter Summary ---
Author Organization [facility] Address [address] [place] [address] Care Team Providers Care Benzene Worker Name Role Phone Taya Gonzales MD Unavailable [phone] Chandan Breen Unavailable Melonie Sorensen DO Primary Care Pro vider Unavailable [facility], Pcp Primary Care Provider UnavailHawa Barron MD Primary Care Provider UnavailJessi Hogan DNP Unavailable [phone] Reason for Visit * Reason Onset Date Comments Appointment Cancelled 08/28/2022 Encounter Details Date Type Department Care Team Description 08/28/2022 Telephone Nephrology - [address] [id number] Mc Barragan MD [address] [place] [address] Appointment Cancelled Social History Tobacco Use Types [...] hospitalized since . She was [facility] from [facility] to [facility] and placed on dialysis documented in this encounter Plan of Treatment Not on file documented as of this encounter Visit Diagnoses Not on filedocumented in this encounter Care Teams Benzene Worker Relationship Specialty Start Date End Date Melonie Sorensen DO PCP - General Internal Medicine 05/22/22 09/07/22 [facility], Pcp PCP - General Internal Medicine 09/08/22 11/08/22 Hawa Torres MD PCP - General Internal Medicine 11/09/22 Taya Gonzales MD Specialist Cardiology 11/01/20 Chandan Breen PA Specialist Cardiology 11/01/20 02/20/24 Jessi Erwin DNP Specialist Nurse Practitioner Family 02/21/24 documented as of this encounter
--- OUTSIDE RECORDS SUMMARY | 2024-11-11 10:52 | XMS_ITS | Encounter Summary ---
Author Organization [facility] Address [address] [place] [address] Care Team Providers Care Best Worker Name Role Phone Taya Gonzales MD Unavailable [phone] Chandan Breen Unavailable Hawa Torres MD Primary Care Provider Unavaila Hawa Maddox MD Primary Care Provider Unavaila elpidio [facility], Pcp Primary Care Provider UnavailHawa Barron MD Primary Care Provider Unavaila [facility], Pcp Primary Care Provider Hawa Zavala MD Primary Care Provider Unavaila ble Melonie Sorensen DO Primary Care Pro vider Unavailable [facility], Pcp Primary Care Provider Hawa Zavala MD Primary Care Provider Unavaila ble Jessi Erwin [facility] Unavailable [phone] Encounter Details Date Type Department Care Team Description 05/03/2021 Refill Medicine/Pediatrics - [address] [address] Hawa Torres MD Social History Tobacco Use [...] Other - TRIAMCINOLONE 0.1% CREAM Preferred pharmacy: [id number] documented in this encounter Plan of Treatment Not on file documented as of this encounter Visit Diagnoses Not on filedocumented in this encounter Care Teams Best Worker Relationship Specialty Start Date End Date Hawa [...]
--- OUTSIDE RECORDS SUMMARY | 2024-11-11 10:52 | XMS_ITS | Encounter Summary ---
Author Organization [facility] Address [address] [place] [address] Care Team Providers Care Lead Data Architect Name Role Phone Unavailable Primary Care Provider Unavailabl e Encounter Details Date Type Department Care Team (Late Contact Info) Description 10/14/2024 10:25 PM EST Ancillary Procedure [facility] Cardiology [facility] [address] [phone] Social History Tobacco Use Types Packs/Day Years [...] Description 02/04/2025 3:30 PM EDT Ancillary Procedure [facility] Cardiology [facility] 154 300 [facility] 154 [place] [address] 02/19/2025 3:40 PM EDT Office Visit Endocrinology - [place] [address] [place] [phone] Lucille Clarke PA [address] [place] [address] 03/31/2025 3:15 PM EDT Office Visit [facility] Hematology Oncology [address] [place] [phone] Cullen Gibson MD [address] [place] [phone] 04/09/2025 3:40 PM EDT Appointment Radiology Department - [address] [address] 04/23/2025 10:50 AM EDT Office Visit [facility] [address] 300 [facility] 154 [place] [phone] Taya Gonzales MD [address] [place] [address] documented as of this encounter Procedures Procedure Name Priority Date/Time Associated Diagnosis Comments CARDIAC DEVICE CHECK- REMOTE- MURJ Routine 10/14/2024 10:24 PM EST documented in this encounter Results * Cardiac device check - Remote- MURJ (10/14/2024 10:24 PM EST) Date Time Interrogation Session [id number] CV DEVICE CHECK Type Interrogation Session Remote Scheduled CV DEVICE CHECK Implantable Pulse Generator Waiter/[employer] CV DEVICE CHECK Implantable Pulse Generator Type BPM ANALYST-D CV DEVICE CHECK Implantable Pulse Generator Model [id number] [facility]() CV DEVICE CHECK Implantable Pulse Generator Serial Number [id number] CV DEVICE CHECK Implantable Pulse Generator Implant Date 20240110 CV DEVICE CHECK Battery Remaining Percentage 83.00 CV DEVICE CHECK Battery Remaining Longevity 53.0 CV DEVICE CHECK Battery Voltage 3.010 CV D EVICE CHECK Battery WILLOWER Trigger 2.590 CV DEVICE CHECK Battery Status Middle of Service CV DEVICE CHECK Capacitor Charge Time 8.000 CV DEVICE CHECK Antione Statistic RA Percent Paced 49.00 CV DEVICE CHECK Antione Statistic RV Percent Paced 100.00 CV DEVICE CHECK BPM ANALYST Statistic BPM ANALYST Percent Paced 99.00 CV DEVICE CHECK Atrial Tachy Statistic AT/AF [place] Percent 0.00 CV DEVICE CHECK Lead Channel [...] CV DEVICE CHECK Ventricular chambers paced during BPM ANALYST pacing. BiV CV DEVICE CHECK Antione Setting Lower Rate Limit 60 CV DEVICE CHECK Antione Setting AT Mode Switch Rate 180 CV DEVICE CHECK Antione Setting Maximum Tracking Rate 110 CV DEVICE CHECK Antione Setting Maximum Sensor Rate 110 CV DEVICE CHECK Antione Setting PAV Delay 150 CV DEVICE CHECK Antione Setting JAGJIT Delay 130 CV DEVICE CHECK BPM ANALYST LV-RV Delay 40 CV D EVICE CHECK [...]
--- OUTSIDE RECORDS SUMMARY | 2024-11-11 10:52 | XMS_ITS | Encounter Summary ---
Author Organization [facility] Address [address] [place] [address] Care Team Providers Care Modeling Agency Manager Name Role Phone Hawa Torres MD Primary Care Provider Unavaila Taya Covington MD Unavailable [phone] Chandan Breen Unavailable Rancho Matthews MD Primary Care Provider [phone] [facility], Pcp Primary Care Provider UnavailRancho Brock MD Primary Care Provider [phone] Hawa Torres MD Primary Care Provider Unavaila Hawa Maddox MD Primary Care Provider Unavaila ble [facility], Pcp Primary Care Provider UnavailHawa Barron MD Primary Care Provider Unavaila ble [facility], Pcp Primary Care Provider Hawa Zavala MD Primary Care Provider Unavaila ble Melonie Sorensen DO Primary Care Pro vider Unavailable [facility], Pcp Primary Care Provider UnavailHawa Barron MD Primary Care Provider Unavaila Jessi Cagle [facility] Unavailable + [phone] Encounter Details Date Type Department Care Team Description 08/18/2020 Pt. Non Urgent Medic al Question Dermatology - [address] [phone] Leda Lucas PA-C Social History [...] on filedocumented in this encounter Care Teams Modeling Agency Manager Relationship Specialty Start Date End Date Hawa Torres MD PCP - General Internal Medicine 09/09/15 12/19/20 Rancho Matthews MD [address] [place] [place] [address] PCP - General Internal Medicine 12/20/20 03/22/21 [facility], Pcp [address] [place], [place] [phone] PCP - General Internal Medicine 03/23/21 04/11/21 Rancho Matthews MD [address] [place] [place] [address] PCP - General Internal Medicine 04/12/21 04/12/21 Hawa Torres MD [address] [place] [address] PCP - General Internal Medicine 04/13/21 06/05/21 Hawa Torres MD [address] [place] [address] PCP - General Internal Medicine 06/06/21 08/07/21 [facility], Pcp [address] [place] [address] PCP - General Internal Medicine 08/08/21 10/27/21 Hawa Torres MD PCP - General Internal Medicine 10/28/21 04/11/22 [facility], Pcp [address] [place] [address] PCP - General Internal Medicine 04/12/22 05/01/22 Hawa Torres MD [address] [place] [address]65 PCP - General Internal Medicine 05/02/22 05/21/22 Melonie Sorensen DO [address] [place] [address] PCP - General Internal Medicine 05/22/22 09/07/22 [facility], Pcp [address] [place] [address] PCP - General Internal Medicine 09/08/22 11/08/22 Hawa Torres MD [address] [place] [address] PCP - General Internal Medicine 11/09/22 Taya Gonzales MD Specialist Cardiology 11/01/20 Chandan Breen PA Specialist Cardiology 11/01/20 02/20/24 Jessi Erwin DNP [address] [place] [address] Specialist Nurse Practitioner Family 02/21/24 documented as of this encounter
--- OUTSIDE RECORDS SUMMARY | 2024-11-11 10:52 | XMS_ITS | Encounter Summary ---
Author Organization [facility] Address [address] [place] [address] Care Team Providers Care Conventions Assistant Name Role Phone Taya Gonzales MD Unavailable [phone] Chandan Breen Unavailable Hawa Torres MD Primary Care Provider Unavaila ble [facility], Pcp Primary Care Provider Hawa Zavala MD Primary Care Provider Unavaila ble [facility], Pcp Primary Care Provider UnavailHawa Barron MD Primary Care Provider Unavaila ble Melonie Sorensen DO Primary Care Pro vider Unavailable [facility], Pcp Primary Care Provider Hawa Zavala MD Primary Care Provider Unavaila ble Jessi Erwin [facility] Unavailable [phone] Reason for Visit * Reason Comments E-prescribe Rx Request Encounter Details Date Type Department Care Team Description 08/03/2021 Refill Adult Medicine [address] [phone] Rancho Matthews MD [address] [place] [address] [phone] E-prescribe Rx Request Social History Tobacco Use [...] on filedocumented in this encounter Care Teams Conventions Assistant Relationship Specialty Start Date End Date [...] Medicine 05/22/22 09/07/22 [facility], [facility]cp PCP - General Internal Medicine 09/08/22 11/08/22 Hawa Torres MD PCP - General Internal Medicine 11/09/22 Taya Gonzales MD Specialist Cardiology 11/01/20 Chandan Breen PA Specialist Cardiology 11/01/20 02/20/24 Jessi Erwin DNP Specialist Nurse Practitioner Family 02/21/24 documented as of this encounter
--- OUTSIDE RECORDS SUMMARY | 2024-11-11 10:52 | XMS_ITS | Encounter Summary ---
Author Organization [facility] Address [address] [place] [address] Care Team Providers Care Multilith Operator Name Role Phone Taya Gonzales MD Unavailable [phone] Chandan Breen Unavailable Hawa Torres MD Primary Care Provider Unavaila Jessi Cagle DNP Unavailable [phone] Encounter Details Date Type Department Care Team Description 12/07/2023 CGM Report Medical Records [address] [place] [address] Abstract, Provider Social History Tobacco Use Types [...] on filedocumented in this encounter Care Teams Multilith Operator Relationship Specialty Start Date End Date Hawa Torres MD PCP - General Internal Medicine 11/09/22 Taya Gonzales MD Specialist Cardiology 11/01/20 Chandan Breen PA Specialist Cardiology 11/01/20 02/20/24 Jessi Erwin DNP Specialist Nurse Practitioner Family 02/21/24 documented as of this encounter
--- OUTSIDE RECORDS SUMMARY | 2024-11-11 10:52 | XMS_ITS | Encounter Summary ---
Author Organization [facility] Address [address] [place] [address] Care Team Providers Care Teacher Visually Impaired Name Role Phone Taya Gonzales MD Unavailable [phone] Chandan Breen Unavailable Rancho Matthews MD Primary Care Provider [phone] [facility], Pcp Primary Care Provider UnavailRancho Brock MD Primary Care Provider [phone] Hawa Torres MD Primary Care Provider Unavaila Hawa Maddox MD Primary Care Provider Unavaila ble [facility], Pcp Primary Care Provider UnavailHawa Barron MD Primary Care Provider Unavaila ble [facility], Pcp Primary Care Provider UnavailHawa Barron MD Primary Care Provider Unavaila ble Melonie Sorensen DO Primary Care Pro vider Unavailable [facility], Pcp Primary Care Provider UnavailHawa Barron MD Primary Care Provider Unavaila ble Jessi Erwin [facility] Unavailable [phone] Encounter Details Date Type Department Care Team Description 03/11/2021 Telephone Pulmonology - [place] [address] [facility] [address] [place] [address] Rancho Matthews MD [address] [place] [address] Social History Tobacco Use Types Packs/Day [...] on filedocumented in this encounter Care Teams Teacher Visually Impaired Relationship Specialty Start Date End Date Rancho Matthews MD [address] [place] [address]209 PCP - General Internal Medicine 12/20/20 03/22/21 [facility] Pcp [address] [place] [address] 73036 PCP - General Internal Medicine 03/23/21 04/11/21 Rancho Matthews MD [address] [place] [address]609 PCP - General Internal Medicine 04/12/21 04/12/21 Hawa Torres MD [address] [place] [address] 67957 PCP - General Internal Medicine 04/13/21 06/05/21 Hawa Torres MD [address] [place] [address] 73697 PCP - General Internal Medicine 06/06/21 08/07/21 [facility], Pcp [address] [place] [address]66 PCP - General Internal Medicine 08/08/21 10/27/21 Hawa Torres MD [address] [place] [address] 17313 PCP - General Internal Medicine 10/28/21 04/11/22 [facility], Pcp [address] [place] [address] 54524 PCP - General Internal Medicine 04/12/22 05/01/22 Hawa Torres MD [address] [place] [address] 70725 PCP - General Internal Medicine 05/02/22 05/21/22 Melonie Sorensen, [address] [place] [address] 71976 PCP - General Internal Medicine 05/22/22 09/07/22 [facility], Pcp [address] [place] [address] 64071 PCP - General Internal Medicine 09/08/22 11/08/22 Hawa Torres MD [address] [place] [address] 49475 PCP - General Internal Medicine 11/09/22 Taya Gonzales MD Specialist Cardiology 11/01/20 Chandan Breen PA Specialist Cardiology 11/01/20 02/20/24 Jessi Erwin DNP [address] [place] [address] Specialist Nurse Practitioner Family 02/21/24 documented as of this encounter
--- OUTSIDE RECORDS SUMMARY | 2024-11-11 10:52 | XMS_ITS | Encounter Summary ---
Author Organization [facility] Address [address] [place] [address] Care Team Providers Care Hand Thermal Cutter Name Role Phone Hawa Torres MD Primary Care Provider Unavaila Taya Covington MD Unavailable [phone] Chandan Breen Unavailable + Rancho Matthews MD Primary Care Provider + [facility] Primary Care Provider UnavailRancho Brock MD Primary Care Provider [phone] Hawa Torres MD Primary Care Provider Unavaila Hawa Maddox MD Primary Care Provider Unavaila elpidio [facility], Pcp Primary Care Provider UnavailHawa Barron MD Primary Care Provider Unavaila ble [facility], Pcp Primary Care Provider Hawa Zavala MD Primary Care Provider Unavaila Melonie Rojas DO Primary Care Pro vider Unavailable [facility], Pcp Primary Care Provider Hawa Zavala MD Primary Care Provider Unavaila Jessi Cagle [facility] Unavailable + [phone] Encounter Details Date Type Department Care Team Description 08/16/2020 Pt. Non Urgent Medical Question Medicine/Pediatrics - [address] [phone] Hawa Torres MD Social History Tobacco Use [...] filedocumented in this encounter Care Teams Hand Thermal Cutter Relationship Specialty Start Date End Date Hawa Torres MD PCP - General Internal Medicine 09/09/15 12/19/20 Rancho Matthews MD [address] [place] [address]68 PCP - General Internal Medicine 12/20/20 03/22/21 [facility], Pcp [address] [place] [address] 93628 PCP - General Internal Medicine 03/23/21 04/11/21 Rancho Matthews MD [address] [place] [address] 39383 PCP - General Internal Medicine 04/12/21 04/12/21 Hawa Torres MD [address] [place] [address] 70147 PCP - General Internal Medicine 04/13/21 06/05/21 Hawa Torres MD [address] [place] [address] 01405 PCP - General Internal Medicine 06/06/21 08/07/21 [facility], Pcp [address] [place] [address] 80421 PCP - General Internal Medicine 08/08/21 10/27/21 Hawa Torres MD PCP - General Internal Medicine 10/28/21 04/11/22 [facility], Pcp [address] [place] [address] 13800 PCP - General Internal Medicine 04/12/22 05/01/22 Hawa Torres MD [address] [place] [address] 06001 PCP - General Internal Medicine 05/02/22 05/21/22 Melonie Sorensen, DO [address] [place] [address] 26549 PCP - General Internal Medicine 05/22/22 09/07/22 [facility], Pcp [address] [place] [address] 63567 PCP - General Internal Medicine 09/08/22 11/08/22 Hawa Torres MD [address] [place] [address] 00829 PCP - General Internal Medicine 11/09/22 Taya Gonzales MD Specialist Cardiology 11/01/20 Chandan Breen PA Specialist Cardiology 11/01/20 02/20/24 Jessi Erwin DNP [address] [place] [address] Specialist Nurse Practitioner Family 02/21/24 documented as of this encounter
--- OUTSIDE RECORDS SUMMARY | 2024-11-11 10:52 | XMS_ITS | Encounter Summary ---
Author Organization [facility] Address [address] [place] [address] Care Team Providers Care Certified Rehabilitation Counselor Name Role Phone Taya Gonzales MD Unavailable [phone] Chandan Breen Unavailable Melonie Sorensen DO Primary Care Pro vider Unavailable [facility], Pcp Primary Care Provider UnavailHawa Barron MD Primary Care Provider UnavailJessi Hogan DNP Unavailable [phone] Encounter Details Date Type Department Care Team Description 08/22/2022 SCAN Medical Records [address] [place] [address]91 Abstract, Provider Social History Tobacco Use Types [...] Name Priority Date/Time Associated Diagnosis Comments OUTSIDE PLAIN FILM Routine 08/22/2022 documented in this encounter Results * OUTSIDE PLAIN FILM (08/22/2022) Provider Abstract RADIOLOGY documented in this encounter Visit Diagnoses Not on filedocumented in this encounter Care Teams Certified Rehabilitation Counselor Relationship Specialty Start Date End Date Melonie Sorensen DO PCP - General Internal Medicine 05/22/22 09/07/22 [facility] PCP - General Internal Medicine 09/08/22 11/08/22 Hawa Torres MD PCP - General Internal Medicine 11/09/22 Taya Gonzales MD Specialist Cardiology 11/01/20 Chandan Breen PA Specialist Cardiology 11/01/20 02/20/24 Jessi Erwin DNP Specialist Nurse Practitioner Family 02/21/24 documented as of this encounter
--- OUTSIDE RECORDS SUMMARY | 2024-11-11 10:52 | XMS_ITS | Encounter Summary ---
Author Organization [facility] Address [address] [place] [address] Care Team Providers Care Garment Turner Name Role Phone Hawa Torres MD Primary Care Provider UnavailTaya Lira MD Unavailable [phone] Chandan Breen Unavailable Rancho Matthews MD Primary Care Provider +[phone] [facility], Pcp Primary Care Provider UnavailRancho Brock MD Primary Care Provider +[phone] Hawa Torres MD Primary Care Provider Unavaila Hawa Maddox MD Primary Care Provider Unavaila elpidio [facility], Pcp Primary Care Provider UnavailHawa Barron MD Primary Care Provider Unavaila ble [facility], Pcp Primary Care Provider Hawa Zavala MD Primary Care Provider Unavaila Melonie Rojas DO Primary Care Pro vider Unavailable [facility], Pcp Primary Care Provider Hawa Zavala MD Primary Care Provider Unavaila Jessi Cagle [facility] Unavailable [phone] Encounter Details Date Type Department Care Team Description 01/03/2018 [facility] Medical Records [address] [place] [address] Abstract, Provider Social History Tobacco Use Types [...] on filedocumented in this encounter Care Teams Garment Turner Relationship Specialty Start Date End Date Hawa Trores MD PCP - General Internal Medicine 09/09/15 12/19/20 Rancho Matthews MD [address] [place] [address] PCP - General Internal Medicine 12/20/20 03/22/21 [facility], Pcp [address] [place] [address] PCP - General Internal Medicine 03/23/21 04/11/21 Rancho Matthews MD [address] [place] [address] 21261 PCP - General Internal Medicine 04/12/21 04/12/21 Hawa Torres MD [address] [place] [address] 17576 PCP - General Internal Medicine 04/13/21 06/05/21 Hawa Torres MD [address] [place] [address] 25032 PCP - General Internal Medicine 06/06/21 08/07/21 [facility], Pcp [address] [place] [address] 39233 PCP - General Internal Medicine 08/08/21 10/27/21 Hawa Torres MD PCP - General Internal Medicine 10/28/21 04/11/22 [facility], Pcp [address] [place] [address] 59554 PCP - General Internal Medicine 04/12/22 05/01/22 Hawa Torres MD [address] [place] [address] 66766 PCP - General Internal Medicine 05/02/22 05/21/22 Melonie Sorensen DO [address] [place] [address]23 PCP - General Internal Medicine 05/22/22 09/07/22 [facility], Pcp [address] [place] [address] 30373 PCP - General Internal Medicine 09/08/22 11/08/22 Hawa Torres MD [address] [place], [place] [address] PCP - General Internal Medicine 11/09/22 Taya Gonzales MD Specialist Cardiology 11/01/20 Chandan Breen PA Specialist Cardiology 11/01/20 02/20/24 Jessi Erwin, KITTY [address] [place] [address] Specialist Nurse Practitioner [facility] 02/21/24 documented as of this encounter
--- OUTSIDE RECORDS SUMMARY | 2024-11-11 10:52 | XMS_ITS | Encounter Summary ---
Author Organization [facility] Address [address] [place] [address] Care Team Providers Care Armored Cable Machine Operator Name Role Phone Lul Lou MD Primary Care Provider Unavailab Salomón Cummings MD Primary Care Provider Unavail able Hawa Torres MD Primary Care Provider Unavaila Hawa Maddox MD Primary Care Provider Unavaila Taya Covington MD Unavailable [phone] Chandan Breen Unavailable Rancho Matthews MD Primary Care Provider [phone] [facility], Pcp Primary Care Provider UnavailRancho Brock MD Primary Care Provider [phone] Hawa Torres MD Primary Care Provider Unavaila Hawa Maddox MD Primary Care Provider Unavaila ble [facility], Pcp Primary Care Provider UnavailHawa Barron MD Primary Care Provider Unavaila ble [facility], Pcp Primary Care Provider UnavailHawa Barron MD Primary Care Provider Unavaila ble Melonie Sorensen DO Primary Care Pro vider Unavailable [facility], Pcp Primary Care Provider UnavailHawa Barron MD Primary Care Provider Unavaila ble Jessi Erwin DNP Unavailable [phone] Encounter Details Date Type Department Care Team Description 05/17/2012 Release of Information Medical Records [address] [place] [address] Abstract, Provider Social History Tobacco Use Types [...] on filedocumented in this encounter Care Teams Armored Cable Machine Operator Relationship Specialty Start Date End Date Lul Lou MD PCP - General Internal Medicine 05/16/12 06/06/14 Salomón Lou MD PCP - General Internal Medicine 09/01/14 09/08/15 Hawa Torres MD PCP - General Internal Medicine 09/09/15 12/19/20 Hawa Torres MD PCP - General 06/07/14 08/31/14 Rancho Matthews MD [address] [place], [place] [phone] PCP - General Internal Medicine 12/20/20 03/22/21 [facility], [address] [address] PCP - General Internal Medicine 03/23/21 04/11/21 Rancho Matthews MD [address] [place] [address]41 PCP - General Internal Medicine 04/12/21 04/12/21 Hawa Torres MD [address] [place] [address]405 PCP - General Internal Medicine 04/13/21 06/05/21 Hawa Torres MD [address] [place] [address] 70496 PCP - General Internal Medicine 06/06/21 08/07/21 [facility], [address] [address] PCP - General Internal Medicine 08/08/21 10/27/21 Hawa Torres MD PCP - General Internal Medicine 10/28/21 04/11/22 [facility], Pcp [address] [place] [address] PCP - General Internal Medicine 04/12/22 05/01/22 Hawa Torres MD [address] [place] [address] 33625 PCP - General Internal Medicine 05/02/22 05/21/22 Melonie Sorensen, [address] [place] [address]88 PCP - General Internal Medicine 05/22/22 09/07/22 [facility], Pcp [address] [place] [address]07 PCP - General Internal Medicine 09/08/22 11/08/22 Hawa Torres MD [address] [place] [address] 10412 PCP - General Internal Medicine 11/09/22 Taya Gonzales MD Specialist Cardiology 11/01/20 Chandan Breen PA Specialist Cardiology 11/01/20 02/20/24 Jessi Erwin DNP [address] [place] [address] Specialist Nurse Practitioner [facility] 02/21/24 documented as of this encounter
--- OUTSIDE RECORDS SUMMARY | 2024-11-11 10:52 | XMS_ITS | Encounter Summary ---
Author Organization [facility] Address [address] [place] [address] Care Team Providers Care Pattern Grader Name Role Phone Taya Gonzales MD Unavailable [phone] Chandan Breen Unavailable [facility], Pcp Primary Care Provider Hawa Zavala MD Primary Care Provider UnavailJessi Hogan [facility] Unavailable [phone] Encounter Details Date Type Department Care Team Description 10/26/2022 Director Perioperative Report Medical Records [address] [place] [address] Hawa Torres MD Social History Tobacco Use [...] on filedocumented in this encounter Care Teams Pattern Grader Relationship Specialty Start Date End Date Community, Pcp PCP - General Internal Medicine 09/08/22 11/08/22 Hawa Torres MD PCP - General Internal Medicine 11/09/22 Taya Gonzales MD Specialist Cardiology 11/01/20 Chandan Breen PA Specialist Cardiology 11/01/20 02/20/24 Jessi Erwin DNP Specialist Nurse Practitioner [facility] 02/21/24 documented as of this encounter
--- OUTSIDE RECORDS SUMMARY | 2024-11-11 10:52 | XMS_ITS | Encounter Summary ---
Author Organization [facility] Address [address] [place] [phone] Phone Care Team Providers Care Office Machine Punch Operator Name Role Phone Unavailable Primary Care Provider Unavailabl e Encounter Details Date Type Department Care Team ([facility] st Contact Info) Description 10/13/2024 Treatment [facility] [address] [address] Aldo Rice MD [address] [address] Social History Tobacco Use Types [...] care for end stage renal disease. Attending Business Banker: ALDO RICE MD Dialysis Location: [facility] Schedule: Shift: 1 HOME MEDICATIONS Current [...]
--- OUTSIDE RECORDS SUMMARY | 2024-11-11 10:52 | XMS_ITS | Encounter Summary ---
Author Organization [facility] Address [address] [place] [address] Care Team Providers Care Insurance Processor Name Role Phone Hawa Torres MD Primary Care Provider Unavaila Taya Covington MD Unavailable [phone] Chandan Breen Unavailable Rancho Matthews MD Primary Care Provider [phone] [facility] Primary Care Provider UnavailRancho [...] Cagle [facility] Unavailable + [phone] Encounter Details Date Type Department Care Team Description 05/14/2020 Orders Only Medicine/Pediatrics - [address] [address] Hawa Torres MD Social History Tobacco Use [...] on filedocumented in this encounter Care Teams Insurance Processor Relationship Specialty Start Date End Date Hawa Torres MD PCP - General Internal Medicine 09/09/15 12/19/20 Rancho Matthews MD [address] [place] [address] PCP - General Internal Medicine 12/20/20 03/22/21 [facility]cp [address] [place] [address] PCP - General Internal Medicine 03/23/21 04/11/21 Rancho Matthews MD [address] [place] [address] PCP - General Internal Medicine 04/12/21 04/12/21 Hawa Torres MD [address] [place] [address] PCP - General Internal Medicine 04/13/21 06/05/21 Hawa Torres MD [address] [place] [address] PCP - General Internal Medicine 06/06/21 08/07/21 [facility]cp [address] [place] [address] PCP - General Internal Medicine 08/08/21 10/27/21 Hawa Torres MD PCP - General Internal Medicine 10/28/21 04/11/22 [facility] Pcp [address] [place] [address] PCP - General Internal Medicine 04/12/22 05/01/22 Hawa Torres MD [address] [place] [address] PCP - General Internal Medicine 05/02/22 05/21/22 Meolnie Sorensen DO [address] [place] [address] PCP - General Internal Medicine 05/22/22 09/07/22 [facility], [address] [address] PCP - General Internal Medicine 09/08/22 11/08/22 Hawa Torres MD [address] [place], [place] [phone] PCP - General Internal Medicine 11/09/22 Taya Gonzales MD Specialist Cardiology 11/01/20 Chandan Breen PA Specialist Cardiology 11/01/20 02/20/24 Jessi Erwin DNP [address] [place] [address] Specialist Nurse Practitioner [facility] 02/21/24 documented as of this encounter
--- OUTSIDE RECORDS SUMMARY | 2024-11-11 10:52 | XMS_ITS | Encounter Summary ---
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, with long-term current use of insulin ([facility]) (Primary Dx); Hypothyroidism, unspecified type Social History [...] kidney disease) stage 3, GFR 30-59 ml/min ([facility]) 11/28/2023 Lichen sclerosus et atrophicus of the vulva 11/28/2023 History of percutaneous coronary intervention 11/28/2023 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 breast in female, estrogen receptor positive ([facility]) 11/28/2023 Hypercalcemia 02/22/2022 PLMD (periodic limb movement disorder) 08/22/2021 Nocturnal hypoxemia 04/21/2021 Respiratory failure with hypercapnia ([facility]) 03/11/2021 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 ([facility]) 03/08/2021 Systolic left-sided congestive heart failure, NYHA class 2 ([facility]) 01/26/2021 Pulmonary embolism ([facility]) 11/30/2020 Malignant neoplasm of left female breast ([facility]) 11/30/2020 Class 1 obesity 04/15/2018 Chronic systolic heart failure ([facility]) 08/22/2016 Type 2 diabetes, controlled, with renal manifestation ([facility]) 06/02/2015 Obstructive sleep apnea 04/16/2015 Osteopenia 11/29/2012 [...] EACH MEAL PER SLIDINGSCALE: <120: 0 units, 880616: 3 units, 151-199: 4 UNITS, 200-249: 5 [...] dialysis, with long-term current use of insulin ([facility]) 2. Hypothyroidism, unspecified type PLAN: Diabetes complicated [...] Ancillary Procedure [facility] Cardiology [facility] [address] [address] 02/19/2025 3:40 PM EDT Office Visit Endocrinology - [address] [address] Lucille Clarke PA [address] [place] [address] 03/31/2025 3:15 PM EDT Office Visit [facility] Hematology Oncology [address] [place] [address] Cullen Gibson MD [address] [place] [address] 04/09/2025 3:40 PM EDT Appointment Radiology Department - [address] [address] 04/23/2025 10:50 AM EDT Office Visit [facility] [address] [address] Taya Gonzales MD [address] [place] [address] documented as of this encounter Visit Diagnoses Diagnosis 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
--- OUTSIDE RECORDS SUMMARY | 2024-11-11 10:52 | XMS_ITS | Encounter Summary ---
Author Organization [facility] Address [address] [place] [address] Care Team Providers Care Commercial Sewing Instructor Name Role Phone Taya Gonzales MD Unavailable [phone] Chandan Breen Unavailable Hawa Torres MD Primary Care Provider Unavaila Hawa Maddox MD Primary Care Provider Unavaila ble [facility], Pcp Primary Care Provider UnavailHawa Barron MD Primary Care Provider Unavaila ble [facility], Pcp Primary Care Provider UnavailHawa Barron MD Primary Care Provider Unavaila ble Melonie Sorensen DO Primary Care Pro vider Unavailable [facility], Pcp Primary Care Provider Hawa Zavala MD Primary Care Provider Unavaila ble Jessi Erwin [facility] Unavailable [phone] Reason for Visit * Reason Onset Date Comments Provider Call Back 05/10/2021 Encounter Details Date Type Department Care Team Description 05/10/2021 Telephone Pulmonology - [place] [address] [facility] [address] [place] [address] Coy Salomon MD [address] [place] [address] Provider Call Back Social History [...] does not have theorder. Please fax to [phone]. Please call antoine Yusuf when done. Caller offered to speak with the nurse for assistance: YES Response: Patient offered to speak with nurse for assistance and patient agreed. Message forwarded to nurse. documented in this encounter Plan of Treatment Not on file documented as of this encounter Visit Diagnoses Not on filedocumented in this encounter Care Teams Commercial Sewing Instructor Relationship Specialty Start Date End Date Hawa Torres MD PCP - General Internal Medicine 04/13/21 06/05/21 Hawa Torres MD PCP - General Internal Medicine 06/06/21 08/07/21 [facility], Pcp PCP - General Internal Medicine 08/08/21 10/27/21 Hawa Torres MD PCP - General Internal Medicine 10/28/21 04/11/22 [facility], Pcp PCP - General Internal Medicine 04/12/22 05/01/22 Hawa Torres MD PCP - General Internal Medicine 05/02/22 05/21/22 Melonie Sorensen DO PCP - General Internal Medicine 05/22/22 09/07/22 [facility], Pcp PCP - General Internal Medicine 09/08/22 11/08/22 Hawa Torres MD PCP - General Internal Medicine 11/09/22 Taya Gonzales MD Specialist Cardiology 11/01/20 Chandan Breen PA Specialist Cardiology 11/01/20 02/20/24 Jessi Erwin DNP Specialist Nurse Practitioner Family 02/21/24 documented as of this encounter
--- OUTSIDE RECORDS SUMMARY | 2024-11-11 10:52 | XMS_ITS | Encounter Summary ---
Author Organization [facility] Address [address] [place] [address] Care Team Providers Care Yield Clerk Name Role Phone Hawa Torres MD Primary Care Provider UnavailTaya Lira MD Unavailable [phone] Chandan Breen Unavailable Rancho Matthews MD Primary Care Provider + [facility], Pcp Primary [...] Primary Care Provider Unavaila Jessi Cagle [facility] Unavailable [phone] Encounter Details Date Type Department Care Team Description 12/30/2017 Hospital Medical Records [address] [place], [place] [id number] [place] [address] Kiran Social History Tobacco Use Types Packs/Day Years [...] on filedocumented in this encounter Care Teams Yield Clerk Relationship Specialty Start Date End Date Hawa Torres MD PCP - General Internal Medicine 09/09/15 12/19/20 Rancho Matthews MD [address] [place] [address] PCP - General Internal Medicine 12/20/20 03/22/21 [facility], Pcp [address] [place] [address] PCP - General Internal Medicine 03/23/21 04/11/21 Rancho Matthews MD [address] [place] [address] PCP - General Internal Medicine 04/12/21 04/12/21 Hawa Torres MD [address] [place] [address] PCP - General Internal Medicine 04/13/21 06/05/21 Hawa Torres MD [address] [place] [address] PCP - General Internal Medicine 06/06/21 08/07/21 [facility], Pcp [address] [place] [address] PCP - General Internal Medicine 08/08/21 10/27/21 Hawa Torres MD PCP - General Internal Medicine 10/28/21 04/11/22 [facility], Pcp [address] [place] [address] PCP - General Internal Medicine 04/12/22 05/01/22 Hawa Torres MD [address] [place] [address] 61867 PCP - General Internal Medicine 05/02/22 05/21/22 Melonie Sorensen DO [address] [place] [address]394 PCP - General Internal Medicine 05/22/22 09/07/22 [facility], Pcp [address] [place] [address] PCP - General Internal Medicine 09/08/22 11/08/22 Hawa Torres MD [address] [place], [place] [phone] PCP - General Internal Medicine 11/09/22 Taya Gonzales MD Specialist Cardiology 11/01/20 Chandan Breen PA Specialist Cardiology 11/01/20 02/20/24 Jessi Erwin, KITTY [address] [place] [address] Specialist Nurse Practitioner [facility] 02/21/24 documented as of this encounter
--- OUTSIDE RECORDS SUMMARY | 2024-11-11 10:52 | XMS_ITS | Encounter Summary ---
Author Organization [facility] Address [address] [place] [address] Care Team Providers Care Semiconductor Packages Sealer Name Role Phone Unavailable Primary Care Provider Unavailabl e Reason for Visit * Reason Comments Pre-op Exam colonoscopy Encounter Details Date Type Department Care Team (Late st Contact Info) Description 10/14/2024 12:40 PM EST Consult [facility] - [address] [place] [address] Jessi Erwin NP [address] [place] [address] Chronic systolic dysfunction of left ventricle (Primary Dx); Primary hypertension; 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 [...] (dialysis fistula side). It occurred right around [place].She has plans for what sounds to be [...] kidney disease) stage 3, GFR 30-59 ml/min ([facility]) 11/28/2023 Dr. Barragan Lichen sclerosus et atrophicus of the vulva 11/28/2023 History of percutaneous coronary intervention 11/28/2023 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 breast in female, estrogen receptor positive ([facility]) 11/28/2023 Hypercalcemia 02/22/2022 PLMD (periodic limb movement disorder) 08/22/2021 Nocturnal hypoxemia 04/21/2021 Respiratory failure with hypercapnia ([facility]) 03/11/2021 Complex history, recent hospitalization, component of systolic/diastolic dysfunction. Patient will be following with pulmonology 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 ([facility]) 03/08/2021 Ischemic congestive cardiomyopathy Systolic left-sided congestive heart failure, NYHA class 2 ([facility]) 01/26/2021 - LVEF as low as 10-15% - GDMT limited by hypotension - Most recent echocardiogram 07/2022 at [facility] showed LVEF 10- 15%, global hypokinesis with wall motion abnormalities without hemodynamically significant valve disease - [facility] PERCHER-D generator change in 12/2023. There had been some noise on her atrial lead that was found to have a small insulation breach. However, the lead was tested repeatedly and no noise was seen on manipulating it. Therefore, a lead repair kit was used and the isulation was fixed. Pulmonary embolism ([facility]) 11/30/2020 Malignant neoplasm of left female breast ([facility]) 11/30/2020 Class 1 obesity 04/15/2018 Chronic systolic heart failure ([facility]) 08/22/2016 Type 2 diabetes, controlled, with renal manifestation ([facility]) 06/02/2015 Obstructive sleep apnea 04/16/2015 [facility] Polysomnogram treatment study. Date 10/06/2017 . SE 68 % SM 72 %; spent 13 % of the study in REM. At the optimal pressure of CPAP 7-9; RDI <4 (AHI <4), Central apneas 0-2; Obstructive apneas 0; Mixed apneas 0; hypopneas 3-4; RERAs 2; and, average oxygen saturation was 93%. For the entire study, PLMs ~34. [facility] CPAP treatment study, 08/07/2021. Weight 135 pounds; [...] lesion. 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 For now, continue her ASA, BB and statin. Systolic left-sided congestive heart failure, NYHA class 2 ([facility]) The patient's volume status is managed [...] or so following her procedure. Should her EGD/[place] be unrevealing, can consider speech therapy evaluation [...] a total of 30 minutes, including both vlle-qf-urpp and jxj-qfyl-uz-face time on the date of the encounter, addressing the above diagnoses. Activities performed in this time includechart review, obtaining / reviewing history, performing a medically necessary evaluation, documentation and counseling including medical decision making of 1. Chronic systolic dysfunction of left ventricle 2. Primary hypertension 3. 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 Systolic left-sided congestive heart failure, NYHA class 2 (CMS/HCC) 5. Pure hypercholesterolemia 6. Preop cardiovascular exam . Cosigned by Kaz Beatty MD at 10/19/2024 12:43 AM EST documented in this encounter Plan of Treatment Upcoming Encounters Date Type Department Care Team (Late st Contact Info) Description 02/04/2025 3:30 PM EDT Ancillary Procedure [facility] - [address] [facility] 154 [place] [address] 02/19/2025 3:40 PM EDT Office Visit Endocrinology - [address] [address] Lucille Clarke PA [address] [place] [address] 03/31/2025 3:15 PM EDT Office Visit [facility] Hematology Oncology [address] [place] [phone] Cullen Gibson MD [address] [place] [phone] 04/09/2025 3:40 PM EDT Appointment Radiology Department - [address] [address] 04/23/2025 10:50 AM EDT Office Visit [facility] - [facility] [address] [facility] [address] [place] [address] Taya Gonzales MD [address] [place] [address] documented as of this encounter Procedures Procedure [...] GEMUSE QTc 510 ms GEMUSE P Wave Bourbon 69 degrees GEMUSE R Bourbon -65 degrees GEMUSE T Bourbon 97 degrees GEMUSE ECG Interpretation Atrial sensed, BiV paced rhythm Confirmed by CHANDAN BEATTY ([id number]) on 10/18/2024 11:50:21 PM GEMUSE 10/14/2024 12:4 9 PM EST 10/18/2024 11:50 PM EST us Jessi Erwin NP ECG ORDERABLES Edited Result - Final GEMUSE documented in this encounter Visit Diagnoses Diagnosis Chronic systolic dysfunction of left ventricle- Primary Primary hypertension Unspecified essential hypertension 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
--- OUTSIDE RECORDS SUMMARY | 2024-11-11 10:52 | XMS_ITS | Encounter Summary ---
Author Organization [facility] Address [address] [place] [address] Care Team Providers Care Urban Gardening Specialist Name Role Phone Hawa Torres MD Primary Care Provider Unavaila Taya Covington MD Unavailable [phone] Chandan Breen Unavailable + Rancho Matthews MD Primary Care Provider + [facility], [facility] Primary Care Provider UnavailRancho Brock MD Primary Care Provider [phone] Hawa Torres MD Primary Care Provider Unavaila Hawa Maddox MD Primary Care Provider Unavaila elpidio [facility], Pcp Primary Care Provider UnavailHawa Barron MD Primary Care Provider Unavaila ble [facility], Pcp Primary Care Provider Hawa Zavala MD Primary Care Provider Unavaila Melonie Rojas DO Primary Care Pro vider Unavailable [facility], Pcp Primary Care Provider Hawa Zavala MD Primary Care Provider Unavaila Jessi Cagle [facility] Unavailable + [phone] Encounter Details Date Type Department Care Team Description 05/12/2020 Refill Medicine/Pediatrics - [address] [address] Hawa Torres MD Social History Tobacco Use [...] on filedocumented in this encounter Care Teams Urban Gardening Specialist Relationship Specialty Start Date End Date Hawa Torres MD PCP - General Internal Medicine 09/09/15 12/19/20 Rancho Matthews MD [address] [place] [address] PCP - General Internal Medicine 12/20/20 03/22/21 [facility], Pcp [address] [place] [address] PCP - General Internal Medicine 03/23/21 04/11/21 Rancho Matthews MD [address] [place] [address] PCP - General Internal Medicine 04/12/21 04/12/21 Hawa Torres MD [address] [place] [address] PCP - General Internal Medicine 04/13/21 06/05/21 Hawa Torres MD [address] [place] [address] PCP - General Internal Medicine 06/06/21 08/07/21 [facility], Pcp [address] [place] [address] PCP - General Internal Medicine 08/08/21 10/27/21 Hawa Torres MD PCP - General Internal Medicine 10/28/21 04/11/22 [facility], Pcp [address] [place] [address] PCP - General Internal Medicine 04/12/22 05/01/22 Hawa Torres MD [address] [place] [address]10 PCP - General Internal Medicine 05/02/22 05/21/22 Melonie Sorensen DO [address] [place] [address] PCP - General Internal Medicine 05/22/22 09/07/22 [facility], [address] [address] PCP - General Internal Medicine 09/08/22 11/08/22 Hawa Torres MD [address] [place], [place] [phone] PCP - General Internal Medicine 11/09/22 Taya Gonzales MD Specialist Cardiology 11/01/20 Chandan Breen PA Specialist Cardiology 11/01/20 02/20/24 Jessi Erwin DNP [address] [place] [address] Specialist Nurse Practitioner [facility] 02/21/24 documented as of this encounter
--- OUTSIDE RECORDS SUMMARY | 2024-11-11 10:52 | XMS_ITS | Encounter Summary ---
Author Organization [facility] Address [address] [place] [address] Care Team Providers Care Ic Design Engineer Name Role Phone Lul Lou MD Primary Care Provider Unavailab Salomón Cummings MD Primary Care Provider Unavail able Hawa Torres MD Primary Care Provider Unavaila Hawa Maddox MD Primary Care Provider Unavaila Taya Covington MD Unavailable [phone] Chandan Breen Unavailable Rancho Matthews MD Primary Care Provider [phone] [facility], Pcp Primary Care Provider UnavailRancho Brock MD Primary Care Provider [phone] Hawa Torres MD Primary Care Provider Unavaila Hawa Maddox MD Primary Care Provider Unavaila ble [facility], Pcp Primary Care Provider UnavailHawa Barron MD Primary Care Provider Unavaila ble [facility], Pcp Primary Care Provider UnavailHawa Barron MD Primary Care Provider Unavaila ble Melonie Sorensen DO Primary Care Pro vider Unavailable [facility], Pcp Primary Care Provider UnavailHawa Barron MD Primary Care Provider Unavaila ble Jessi Erwin DNP Unavailable [phone] Encounter Details Date Type Department Care Team Description 08/05/2012 Anthropology Professor Report Medical Records [address] [place] [id number] Danielle May Social History Tobacco Use Types [...] on filedocumented in this encounter Care Teams Ic Design Engineer Relationship Specialty Start Date End Date Lul Lou MD PCP - General Internal Medicine 05/16/12 06/06/14 Salomón Lou MD PCP - General Internal Medicine 09/01/14 09/08/15 Hawa Torres MD PCP - General Internal Medicine 09/09/15 12/19/20 Hawa Torres MD PCP - General 06/07/14 08/31/14 Rancho Matthews MD [address] [place] [address] PCP - General Internal Medicine 12/20/20 03/22/21 [facility], [address] [address] PCP - General Internal Medicine 03/23/21 04/11/21 Rancho Matthews MD [address] [place] [address]37 PCP - General Internal Medicine 04/12/21 04/12/21 Hawa Torres MD [address] [place] [address]758 PCP - General Internal Medicine 04/13/21 06/05/21 Hawa Torres MD [address] [place] [address] PCP - General Internal Medicine 06/06/21 08/07/21 [facility], [address] [address] PCP - General Internal Medicine 08/08/21 10/27/21 Hawa Torres MD PCP - General Internal Medicine 10/28/21 04/11/22 [facility], Pcp [address] [place] [address] PCP - General Internal Medicine 04/12/22 05/01/22 Hawa Torres MD [address] [place] [address]393 PCP - General Internal Medicine 05/02/22 05/21/22 Melonie Sorensen, [address] [place] [address] PCP - General Internal Medicine 05/22/22 09/07/22 [facility], Pcp [address] [place] [address] PCP - General Internal Medicine 09/08/22 11/08/22 Hawa Torres MD [address] [place] [address] PCP - General Internal Medicine 11/09/22 Taya Gonzales MD Specialist Cardiology 11/01/20 Chandan Breen PA Specialist Cardiology 11/01/20 02/20/24 Jessi Erwin DNP [address] [place] [address] Specialist Nurse Practitioner [facility] 02/21/24 documented as of this encounter
--- OUTSIDE RECORDS SUMMARY | 2024-11-11 10:52 | XMS_ITS | Encounter Summary ---
Author Organization [facility] Address [address] [place] [phone] Phone Care Team Providers Care Maintenance Painter Apprentice Name Role Phone Unavailable Primary Care Provider Unavailabl e Encounter Details Date Type Department Care Team (Late st Contact Info) Description 10/20/2024 Treatment [facility] [address] [address] Aldo Rice MD [address] [address] Social History Tobacco Use Types [...] care for end stage renal disease. Attending Pizzamaker: ALDO RICE MD Dialysis Location: [facility] Schedule: Shift: 1 HOME MEDICATIONS Current [...]
--- OUTSIDE RECORDS SUMMARY | 2024-11-11 10:52 | XMS_ITS | Encounter Summary ---
Author Organization [facility] Address [address] [place] [address] Care Team Providers Care Human Resource Assistant Name Role Phone Hawa Torres MD [...] Jessi Cagle [facility] Unavailable + Encounter Details Date Type Department Care Team Description 05/06/2020 Commercial Lending Assistant Report Medical Records [address] [place] [phone] Taya Gonzales MD [address] [place] [address] [phone] Social History Tobacco Use Types Packs/Day Years [...] on filedocumented in this encounter Care Teams Human Resource Assistant Relationship Specialty Start Date End Date Hawa Torres MD PCP - General Internal Medicine 09/09/15 12/19/20 Rancho Matthews MD [address] [place] [address] PCP - General Internal Medicine 12/20/20 03/22/21 [facility] Pcp [address] [place] [address] PCP - General Internal Medicine 03/23/21 04/11/21 Rancho Matthews MD [address] [place] [address] PCP - General Internal Medicine 04/12/21 04/12/21 Hawa Torres MD [address] [place] [address] PCP - General Internal Medicine 04/13/21 06/05/21 Hawa Torres MD [address] [place] [address] 11617 PCP - General Internal Medicine 06/06/21 08/07/21 [facility], Pcp [address] [place], [place] [address] [address] PCP - General Internal Medicine 08/08/21 10/27/21 Hawa Torres MD PCP - General Internal Medicine 10/28/21 04/11/22 [facility], Pcp [address] [place] [address]270 PCP - General Internal Medicine 04/12/22 05/01/22 Hawa Torres MD [address] [place] [address] PCP - General Internal Medicine 05/02/22 05/21/22 Melonie Sorensen DO [address] [place] [address] PCP - General Internal Medicine 05/22/22 09/07/22 [facility], [address] [address] PCP - General Internal Medicine 09/08/22 11/08/22 Hawa Torres MD [address] [place] [address] PCP - General Internal Medicine 11/09/22 Taya Gonzales MD Specialist Cardiology 11/01/20 Chandan Breen PA Specialist Cardiology 11/01/20 02/20/24 Jessi Erwin DNP [address] [place] [address] Specialist Nurse Practitioner [facility] 02/21/24 documented as of this encounter
--- OUTSIDE RECORDS SUMMARY | 2024-11-11 10:52 | XMS_ITS | Encounter Summary ---
Author Organization [facility] Address [address] [place] [address] Care Team Providers Care Mechanical Car Checker Name Role Phone Hawa Torres MD Primary Care Provider UnavailTaya Lira MD Unavailable + Chandan Breen Unavailable + Rancho Matthews MD Primary Care Provider + [facility], Pcp Primary Care Provider UnavailRancho Brock MD Primary Care Provider + Hawa Torres MD Primary Care Provider Unavaila Hawa Maddox MD Primary Care Provider Unavaila elpidio [facility], Pcp Primary Care Provider UnavailHawa Barron MD Primary Care Provider Unavaila ble [facility], Pcp Primary Care Provider Hawa Zavala MD Primary Care Provider Unavaila Melonie Rojas DO Primary Care Pro vider Unavailable [facility], Pcp Primary Care Provider Hawa Zavala MD Primary Care Provider Unavaila Jessi Cagle [facility] Unavailable + Encounter Details Date Type Department Care Team Description 06/17/2020 Pet Training Instructor Report Medical Records [address] [place] [address] Taya Gonzales MD [address] [place] [address] [phone] Social History Tobacco Use Types Packs/Day Years [...] on filedocumented in this encounter Care Teams Mechanical Car Checker Relationship Specialty Start Date End Date Hawa Torres MD PCP - General Internal Medicine 09/09/15 12/19/20 Rancho Matthews MD [address] [place], [place] [phone] PCP - General Internal Medicine 12/20/20 03/22/21 [facility], [address] [address] PCP - General Internal Medicine 03/23/21 04/11/21 Rancho Matthews MD [address] [place] [address] PCP - General Internal Medicine 04/12/21 04/12/21 Hawa Torres MD [address] [place] [address] PCP - General Internal Medicine 04/13/21 06/05/21 Hawa Torres MD [address] [place] [address] PCP - General Internal Medicine 06/06/21 08/07/21 [facility], [address] [address] PCP - General Internal Medicine 08/08/21 10/27/21 Hawa Torres MD PCP - General Internal Medicine 10/28/21 04/11/22 [facility], Pcp [address] [place] [address] PCP - General Internal Medicine 04/12/22 05/01/22 Hawa Torres MD [address] [place] [address] 66634 PCP - General Internal Medicine 05/02/22 05/21/22 Melonie Sorensen DO [address] [place] [address] PCP - General Internal Medicine 05/22/22 09/07/22 [facility], Pcp [address] [place] [address] PCP - General Internal Medicine 09/08/22 11/08/22 Hawa Torres MD [address] [place] [address] 45967 PCP - General Internal Medicine 11/09/22 Taya Gonzales MD Specialist Cardiology 11/01/20 Chandan Breen PA Specialist Cardiology 11/01/20 02/20/24 Jessi Erwin, KITTY [address] [place] [address] Specialist Nurse Practitioner Family 02/21/24 documented as of this encounter
--- OUTSIDE RECORDS SUMMARY | 2024-11-11 10:52 | XMS_ITS | Encounter Summary ---
Author Organization [facility] Address [address] [place] [address] Care Team Providers Care Fisher Seal Name Role Phone Taya Gonzales MD Unavailable [phone] Chandan Breen Unavailable Hawa Torres MD Primary Care Provider Unavaila Hawa Maddox MD Primary Care Provider Unavaila ble [facility], Pcp Primary Care Provider UnavailHawa Barron MD Primary Care Provider Unavaila ble [facility], Pcp Primary Care Provider UnavailHawa Barron MD Primary Care Provider Unavaila ble Melonie Sorensen DO Primary Care Pro vider Unavailable [facility], [facility]cp Primary Care Provider Hawa Zavala MD Primary Care Provider Unavaila ble Jessi Erwin [facility] Unavailable [phone] Encounter Details Date Type Department Care Team Description 05/12/2021 Orders Only Pulmonology - [place] [address] [facility] [address] [place] [address] Coy Salomon MD [address] [place] [address] Obstructive sleep apnea Social History Tobacco Use Types Packs/Day Years [...] as of this encounter Visit Diagnoses Diagnosis Obstructive sleep apnea Obstructive sleep apnea (adult) (pediatric) documented in this encounter Care Teams Fisher Seal Relationship Specialty Start Date End Date Hawa Torres MD PCP - General Internal Medicine 04/13/21 06/05/21 Hawa Torres MD PCP - General Internal Medicine 06/06/21 08/07/21 [facility], [facility]cp PCP - General Internal Medicine 08/08/21 10/27/21 Hawa Torres MD PCP - General Internal Medicine 10/28/21 04/11/22 [facility], Pcp PCP - General [...] 02/20/24 Jessi Erwin DNP Specialist Nurse Practitioner [facility] 02/21/24 documented as of this encounter
--- OUTSIDE RECORDS SUMMARY | 2024-11-11 10:52 | XMS_ITS | Encounter Summary ---
Author Organization [facility] Address [address] [place] [address] Care Team Providers Care Inspector Packager Name Role Phone Hawa Torres MD Primary Care Provider UnavailTaya Lira MD Unavailable +[phone] Chandan Breen Unavailable Rancho Matthews MD Primary Care Provider + [facility], [facility] Primary Care Provider UnavailRancho Brock MD Primary Care Provider +[phone] Hawa Torres MD Primary Care Provider Unavaila Hawa Maddox MD Primary Care Provider Unavaila elpidio [facility], Pcp Primary Care Provider UnavailHawa Barron MD Primary Care Provider Unavaila ble [facility], Pcp Primary Care Provider Hawa Zavala MD Primary Care Provider Unavaila Melonie Rojas DO Primary Care Pro vider Unavailable [facility], Pcp Primary Care Provider Hawa Zavala MD Primary Care Provider Unavaila Jessi Cagle [facility] Unavailable [phone] Encounter Details Date Type Department Care Team Description 01/17/2018 Hospital Medical Records [address] [place] [address] Social History Tobacco Use Types Packs/Day Years [...] on filedocumented in this encounter Care Teams Inspector Packager Relationship Specialty Start Date End Date Hawa Torres MD PCP - General Internal Medicine 09/09/15 12/19/20 Rancho Matthews MD [address] [place] [address]3795 PCP - General Internal Medicine 12/20/20 03/22/21 [facility], Pcp [address] [place] [address] 34923 PCP - General Internal Medicine 03/23/21 04/11/21 Rancho Matthews MD [address] [place] [address] 15677 PCP - General Internal Medicine 04/12/21 04/12/21 Hawa Torres MD [address] [place] [address] 18293 PCP - General Internal Medicine 04/13/21 06/05/21 Hawa Torres MD [address] [place] [address] 88431 PCP - General Internal Medicine 06/06/21 08/07/21 [facility], Pcp [address] [place] [address] 57066 PCP - General Internal Medicine 08/08/21 10/27/21 Hawa Torres MD PCP - General Internal Medicine 10/28/21 04/11/22 [facility], Pcp [address] [place] [address] 19881 PCP - General Internal Medicine 04/12/22 05/01/22 Hawa Torres MD [address] [place] [address] 92183 PCP - General Internal Medicine 05/02/22 05/21/22 Melonie Sorensen DO [address] [place] [address] 26924 PCP - General Internal Medicine 05/22/22 09/07/22 [facility], Pcp [address] [place] [address] 81580 PCP - General Internal Medicine 09/08/22 11/08/22 Hawa Torres MD [address] [place] [address] 52919 PCP - General Internal Medicine 11/09/22 Taya Gonzales MD Specialist Cardiology 11/01/20 Chandan Breen PA Specialist Cardiology 11/01/20 02/20/24 Jessi Erwin, KITTY [address] [place] [address]20 Specialist Nurse Practitioner Family 02/21/24 documented as of this encounter
--- OUTSIDE RECORDS SUMMARY | 2024-11-11 10:53 | XMS_ITS | Encounter Summary ---
Author Organization [facility] Address [address] [place] [address] Care Team Providers Care Materials Specialist Name Role Phone Hawa Torres MD Primary Care Provider Unavaila Taya Covington MD Unavailable +[phone] Chandan Breen Unavailable + Rancho Matthews MD Primary Care Provider + [facility], Pcp Primary Care Provider UnavailRancho Brock MD Primary Care Provider +[phone] Hawa Torres MD Primary Care Provider Unavaila Hawa Maddox MD Primary Care Provider Unavaila elpidio [facility], Pcp Primary Care Provider UnavailHawa Barron MD Primary Care Provider Unavaila ble [facility], Pcp Primary Care Provider Hawa Zavala MD Primary Care Provider Unavaila ble Melonie Sorensen DO Primary Care Pro vider Unavailable [facility], Pcp Primary Care Provider Hawa Zavala MD Primary Care Provider Unavaila Jessi Cagle [facility] Unavailable + [phone] Reason for Visit * Reason Onset Date Comments VNA Call 11/29/2020 Encounter Details Date Type Department Care Team Description 11/29/2020 Telephone Medicine/Pediatrics - [address] [phone] Hawa Torres MD [facility]NA Call Social History Tobacco Use Types Packs/Day Years [...] encounter Miscellaneous Notes * Telephone Encounter - Bismark Zheng R.N. - 11/29/2020 3:53 PM EST FYI * Telephone Encounter - Nia Arrington - 11/29/2020 3:14 PM EST [facility] CALL Which [facility] office is calling? [facility] Full name of caller: Belen The caller is A Physical Therapist Is the caller at the patients home?: NO Reason for call: let Know pt was seen today to start PT and pt will be seen twice a week for 8 weeks Does caller need an urgent call back? NO Was CONTACT Telephone # obtained above?: YES Fax #: documented in this encounter Plan of Treatment Not on file documented as of this encounter Visit Diagnoses Not on filedocumented in this encounter Care Teams Materials Specialist Relationship Specialty Start Date End Date Hawa Torres MD PCP - General Internal Medicine 09/09/15 12/19/20 Rancho Matthews MD [address] [place] [address]956 PCP - General Internal Medicine 12/20/20 03/22/21 [facility], Pcp [address] [place] [address] 72230 PCP - General Internal Medicine 03/23/21 04/11/21 Rancho Matthews MD [address] [place] [address] 37061 PCP - General Internal Medicine 04/12/21 04/12/21 Hawa Torres MD [address] [place] [address] 23666 PCP - General Internal Medicine 04/13/21 06/05/21 Hawa Torres MD [address] [place] [address] 21014 PCP - General Internal Medicine 06/06/21 08/07/21 [facility], Pcp [address] [place] [address] 35365 PCP - General Internal Medicine 08/08/21 10/27/21 Hawa Trores MD PCP - General Internal Medicine 10/28/21 04/11/22 [facility], Pcp [address] [place] [address] 37996 PCP - General Internal Medicine 04/12/22 05/01/22 Hawa Torres MD [address] [place] [address] 47325 PCP - General Internal Medicine 05/02/22 05/21/22 Melonie Sorensen, DO [address] [place] [address] 84144 PCP - General Internal Medicine 05/22/22 09/07/22 [facility], Pcp [address] [place] [address] 10971 PCP - General Internal Medicine 09/08/22 11/08/22 Hawa Torres MD [address] [place] [address] 30588 PCP - General Internal Medicine 11/09/22 Taya Gonzales MD Specialist Cardiology 11/01/20 Chandan Breen PA Specialist Cardiology 11/01/20 02/20/24 Jessi Erwin, KITTY [address] [place] [address] Specialist Nurse Practitioner Family 02/21/24 documented as of this encounter
--- OUTSIDE RECORDS SUMMARY | 2024-11-11 10:53 | XMS_ITS | Encounter Summary ---
Author Organization [facility] Address [address] [place] [address] Care Team Providers Care Under Ground Miner Name Role Phone Taya Gonzales MD Unavailable [phone] Chandan Breen Unavailable Hawa Torres MD Primary Care Provider Unavaila Jessi Cagle DNP Unavailable [phone] Encounter Details Date Type Department Care Team Description 12/20/2023 Orders Only Endocrinology - [address] [address] Lucille Clarke PA-C [address] [place] [address] [id number] Hypothyroidism, unspecified type (Primary Dx) Social History [...] 4.00 uIU/ml 12/20/2023 8:16 PM EDT [facility] 12/20/2023 4:28 PM EDT 12/20/2023 4:28 PM EDT Narrative [facility] - 12/20/2023 8:16 PM EDT Release to patient->Immediate Lucille Clarke PA-C [facility] [employer] documented in this encounter Visit Diagnoses Diagnosis Hypothyroidism, unspecified type- Primary Hypothyroidism, unspecified type documented in this encounter Care Teams Under Ground Miner Relationship Specialty Start Date End Date Hawa Torres MD PCP - General Internal Medicine 11/09/22 Taya Gonzales MD Specialist Cardiology 11/01/20 Chandan Breen PA Specialist Cardiology 11/01/20 02/20/24 Jessi Erwin DNP Specialist Nurse Practitioner Family 02/21/24 documented as of this encounter
--- OUTSIDE RECORDS SUMMARY | 2024-11-11 10:53 | XMS_ITS | Encounter Summary ---
Author Organization [facility] Address [address] [place] [address] Care Team Providers Care Digital Learning Platforms Manager Name Role Phone Taya Gonzales MD Unavailable [phone] Chandan Breen Unavailable Hawa Torres MD Primary Care Provider Unavaila Jessi Cagle DNP Unavailable [phone] Reason for Visit * Reason Comments Remote Device Check Device At [facility] Encounter Details Date Type Department Care Team Description 10/18/2023 Remote Device Check Cardio PVC POC 154 [address] [facility] [address] [place] [address] Nikhil Sorenson MD [address] [place] [address] [id number] Social History Tobacco Use Types Packs/Day Years [...] on filedocumented in this encounter Care Teams Digital Learning Platforms Manager Relationship Specialty Start Date End Date Hawa Torres MD PCP - General Internal Medicine 11/09/22 Taya Gonzales MD Specialist Cardiology 11/01/20 Chandan Breen PA Specialist Cardiology 11/01/20 02/20/24 Jessi Erwin DNP Specialist Nurse Practitioner Family 02/21/24 documented as of this encounter
--- OUTSIDE RECORDS SUMMARY | 2024-11-11 10:53 | XMS_ITS | Encounter Summary ---
Author Organization [facility] Address [address] [place] [address] Care Team Providers Care Rigging Man Name Role Phone Hawa Torres MD Primary Care Provider Unavaila Taya Covington MD Unavailable +[phone] Chandan Breen Unavailable Rancho Matthews MD Primary Care Provider +[phone] [facility], Pcp Primary Care [...] Unavaila Jessi Cagle [facility] Unavailable [phone] Encounter Details Date Type Department Care Team Description 11/15/2020 Hospital Medical Records [address] [place] [address] Julio C Lawler MD [address] [place] [address] Social History Tobacco Use Types Packs/Day Years [...] on filedocumented in this encounter Care Teams Rigging Man Relationship Specialty Start Date End Date Hawa Torres MD PCP - General Internal Medicine 09/09/15 12/19/20 Rancho Matthews MD [address] [place] [address] PCP - General Internal Medicine 12/20/20 03/22/21 [facility], [address] [address] PCP - General Internal Medicine 03/23/21 04/11/21 Rancho Matthews MD [address] [place] [address] 78152 PCP - General Internal Medicine 04/12/21 04/12/21 Hawa Torres MD [address] [place] [address] 62586 PCP - General Internal Medicine 04/13/21 06/05/21 Hawa Torres MD [address] [place] [address] 62466 PCP - General Internal Medicine 06/06/21 08/07/21 [facility], [place] [phone] PCP - General Internal Medicine 08/08/21 10/27/21 Hawa Torres MD PCP - General Internal Medicine 10/28/21 04/11/22 [facility], Pcp [address] [place] [address] PCP - General Internal Medicine 04/12/22 05/01/22 Hawa Torres MD [address] [place] [address] 44501 PCP - General Internal Medicine 05/02/22 05/21/22 Melonie Sorensen, [address] [place] [address]56 PCP - General Internal Medicine 05/22/22 09/07/22 [facility], Pcp [address] [place] [address] 46196 PCP - General Internal Medicine 09/08/22 11/08/22 Hawa Torres MD [address] [place] [address] 69536 PCP - General Internal Medicine 11/09/22 Taya Gonzales MD Specialist Cardiology 11/01/20 Chandan Breen PA Specialist Cardiology 11/01/20 02/20/24 Jessi Erwin, KITTY [address] [place] [address]17 Specialist Nurse Practitioner Family 02/21/24 documented as of this encounter
--- OUTSIDE RECORDS SUMMARY | 2024-11-11 10:53 | XMS_ITS | Encounter Summary ---
Author Organization [facility] Address [address] [place] [address] Care Team Providers Care Scrap Baler Name Role Phone Hawa Torres MD Primary Care Provider UnavailTaya Lira MD Unavailable +[phone] Chandan Breen Unavailable + Rancho Matthews MD Primary Care Provider + [facility], [facility] Primary Care Provider UnavailRancho Brock MD Primary Care Provider +[phone] Hawa Torres MD Primary Care Provider Unavaila Hawa Maddox MD Primary Care Provider Unavaila elpidio [facility], Pcp Primary Care Provider UnavailHawa Barron MD Primary Care Provider Unavaila ble [facility], Pcp Primary Care Provider Hawa Zavala MD Primary Care Provider Unavaila Melonie Rojas DO Primary Care Pro vider Unavailable [facility], Pcp Primary Care Provider Hawa Zavala MD Primary Care Provider Unavaila Jessi Cagle [facility] Unavailable [phone] Encounter Details Date Type Department Care Team Description 12/08/2020 Focusing Machine Operator Report Medical Records [address] [place] [address] Lorin Mcclelland MD Social History Tobacco Use [...] on filedocumented in this encounter Care Teams Scrap Baler Relationship Specialty Start Date End Date Hawa Torres MD PCP - General Internal Medicine 09/09/15 12/19/20 Rancho Matthews MD [address] [place] [address] PCP - General Internal Medicine 12/20/20 03/22/21 [facility], [place] [phone] PCP - General Internal Medicine 03/23/21 04/11/21 Rancho Matthews MD [address] [place] [address] PCP - General Internal Medicine 04/12/21 04/12/21 Hawa Torres MD [address] [place] [address] 73995 PCP - General Internal Medicine 04/13/21 06/05/21 Hawa Torres MD [address] [place] [address] 10680 PCP - General Internal Medicine 06/06/21 08/07/21 [facility], [address] [address] PCP - General Internal Medicine 08/08/21 10/27/21 Hawa Torres MD PCP - General Internal Medicine 10/28/21 04/11/22 [facility], Pcp [address] [place] [address] PCP - General Internal Medicine 04/12/22 05/01/22 Hawa Torres MD [address] [place] [address] 12086 PCP - General Internal Medicine 05/02/22 05/21/22 Melonie Sorensen DO [address] [place] [address] 47184 PCP - General Internal Medicine 05/22/22 09/07/22 [facility], Pcp [address] [place] [address]90 PCP - General Internal Medicine 09/08/22 11/08/22 Hawa Torres MD [address] [place] [address] 31048 PCP - General Internal Medicine 11/09/22 Taya Gonzales MD Specialist Cardiology 11/01/20 Chandan Breen PA Specialist Cardiology 11/01/20 02/20/24 Jessi Erwin, KITTY [address] [place] [address]15 Specialist Nurse Practitioner [facility] 02/21/24 documented as of this encounter
--- OUTSIDE RECORDS SUMMARY | 2024-11-11 10:53 | XMS_ITS | Encounter Summary ---
Author Organization [facility] Address [address] [place] [address] Care Team Providers Care Microbial Specialist Name Role Phone Taya Gonzales MD Unavailable [phone] Chandan Breen Unavailable Hawa Torres MD Primary Care Provider Unavaila Jessi Cagle DNP Unavailable [phone] Encounter Details Date Type Department Care Team Description 01/07/2024 [facility] Medical Records [address] [place] [address] Abstract, Provider Social History Tobacco Use Types [...] Date/Time Associated Diagnosis Comments OUTSIDE LAB Routine 01/07/2024 documented in this encounter Results * OUTSIDE LAB (01/07/2024) Provider Default LAB documented in this encounter Visit Diagnoses Not on filedocumented in this encounter Care Teams Microbial Specialist Relationship Specialty Start Date End Date Hawa Torres MD PCP - General Internal Medicine 11/09/22 Taya Gonzales MD Specialist Cardiology 11/01/20 Chandan Breen PA Specialist Cardiology 11/01/20 02/20/24 Jessi Erwin DNP Specialist Nurse Practitioner Family 02/21/24 documented as of this encounter
--- OUTSIDE RECORDS SUMMARY | 2024-11-11 10:53 | XMS_ITS | Encounter Summary ---
Author Organization [facility] Address [address] [place] [address] Care Team Providers Care Business Operations Manager Name Role Phone Hawa Torres MD Primary Care Provider Unavaila Taya Covington MD Unavailable +[phone] Chandan Breen Unavailable Rancho Matthews MD Primary Care Provider [phone] [facility], Pcp Primary Care Provider UnavailRancho Brock MD [...] Unavaila Jessi Cagle [facility] Unavailable + [phone] Reason for Visit * Reason Onset Date Comments Remote Device Check 11/27/2020 Encounter Details Date Type Department Care Team Description 11/27/2020 Telephone Cardio PVC POC [address] [place] [address] Nikhil Sorenson MD [address] [place] [address] [phone] Remote Device Check Social History Tobacco Use [...] oncology (she needs radiation on the side [facility] is located) * Telephone Encounter - [...] on filedocumented in this encounter Care Teams Business Operations Manager Relationship Specialty Start Date End Date Hawa Torres MD PCP - General Internal Medicine 09/09/15 12/19/20 Rancho Matthews MD [address] [place] [address] PCP - General Internal Medicine 12/20/20 03/22/21 [facility], [address] [address] PCP - General Internal Medicine 03/23/21 04/11/21 Rancho Matthews MD [address] [place] [address] 18994 PCP - General Internal Medicine 04/12/21 04/12/21 Hawa Torres MD [address] [place] [address]22 PCP - General Internal Medicine 04/13/21 06/05/21 Hawa Torres MD [address] [place] [address] 62129 PCP - General Internal Medicine 06/06/21 08/07/21 [facility], Pcp [address] [place] [address] 27356 PCP - General Internal Medicine 08/08/21 10/27/21 Hawa Torres MD PCP - General Internal Medicine 10/28/21 04/11/22 [facility], Pcp [address] [place] [address] 44257 PCP - General Internal Medicine 04/12/22 05/01/22 Hawa Torres MD [address] [place] [address] PCP - General Internal Medicine 05/02/22 05/21/22 Melonie Sorensen, [address] [place] [address] PCP - General Internal Medicine 05/22/22 09/07/22 [facility], Pcp [address] [place] [address] PCP - General Internal Medicine 09/08/22 11/08/22 Hawa Torres MD [address] [place] [address]755 PCP - General Internal Medicine 11/09/22 Taya Gonzales MD Specialist Cardiology 11/01/20 Chandan Breen PA Specialist Cardiology 11/01/20 02/20/24 Jsesi Erwin DNP [address] [place] [address] Specialist Nurse Practitioner [facility] 02/21/24 documented as of this encounter
--- OUTSIDE RECORDS SUMMARY | 2024-11-11 10:53 | XMS_ITS | Encounter Summary ---
Author Organization [facility] Address [address] [place] [phone] Phone Care Team Providers Care Trim Technician Name Role Phone Unavailable Primary Care Provider Unavailabl e Encounter Details Date Type Department Care Team (Late st Contact Info) Description 11/10/2024 Treatment [facility] [address] [phone] Aldo Rice MD [address] [phone] Social History Tobacco Use Types Packs/Day Years Used Date Smoking Tobacco: Never Assessed Comments Unknown Sex and Gender Information Value Date Recorded Sex Assigned at Not on file Legal Sex Female 5:11 PM EST Gender Identity Not on file Sexual Orientation Not on file documented as of this encounter Miscellaneous Notes * Dialysis Note - Aldo Rice MD - 11/10/2024 12:00 AM EST Patient: Dana Grant : 1940 Note Type: Dialysis Rounds-Basic Service Date: 11/10/2024 This patient was personally seen for a basic visit as part of routine monthly dialysis care for end stage renal disease. Attending Manager Estate: ALDO RICE MD Dialysis Location: [facility] [...] (09/10/24) Signed by: ALDO RICE MD on 11/10/2024 at 08:26:18 AM documented in this encounter Plan of Treatment Not on file documented as of this encounter Visit Diagnoses Not on filedocumented in this encounter
--- OUTSIDE RECORDS SUMMARY | 2024-11-11 10:53 | XMS_ITS | Encounter Summary ---
Author Organization [facility] Address [address] [place] [address] Care Team Providers Care Auger Press Operator Name Role Phone Hawa Torres MD Primary Care Provider UnavailTaya Lira MD Unavailable +[phone] Chandan Breen Unavailable Rancho Matthews MD Primary Care Provider +[phone] [facility], Pcp Primary Care Provider UnavailRancho Brock MD Primary Care Provider +[phone] Hawa Torres MD Primary Care Provider Unavaila Hawa Maddox MD Primary Care Provider Unavaila elpidio [facility], Pcp Primary Care Provider UnavailHawa Barron MD Primary Care Provider Unavaila ble [facility], Pcp Primary Care Provider Hawa Zavala MD Primary Care Provider Unavaila Melonie Rojas DO Primary Care Pro vider Unavailable [facility], Pcp Primary Care Provider Hawa Zavala MD Primary Care Provider Unavaila Jessi Cagle [facility] Unavailable [phone] Encounter Details Date Type Department Care Team Description 10/21/2020 Orders Only Medical Records [address] [place] [address] Julio C Lawler MD [address] [place] [address] Social History Tobacco Use Types Packs/Day Years [...] Date/Time Associated Diagnosis Comments OUTSIDE MAMMO Routine 10/21/2020 documented in this encounter Results * OUTSIDE MAMMO (10/21/2020) Julio C Lawler MD RADIOLOGY documented in this encounter Visit Diagnoses Not on filedocumented in this encounter Care Teams Auger Press Operator Relationship Specialty Start Date End Date Hawa Torres MD PCP - General Internal Medicine 09/09/15 12/19/20 Rancho Matthews MD [address] [place] [address] PCP - General Internal Medicine 12/20/20 03/22/21 [facility], [address] [address] PCP - General Internal Medicine 03/23/21 04/11/21 Rancho Matthews MD [address] [place] [address] PCP - General Internal Medicine 04/12/21 04/12/21 Hawa Torres MD [address] [place] [address] 28681 PCP - General Internal Medicine 04/13/21 06/05/21 Hawa Torres MD [address] [place] [address] 107[address] PCP - General Internal Medicine 06/06/21 08/07/21 [facility], [address] [address] PCP - General Internal Medicine 08/08/21 10/27/21 Hawa Torres MD PCP - General Internal Medicine 10/28/21 04/11/22 [facility], Pcp [address] [place] [address] PCP - General Internal Medicine 04/12/22 05/01/22 Hawa Torres MD [address] [place] [address] PCP - General Internal Medicine 05/02/22 05/21/22 Melonie Sorensen, [address] [place] [address] PCP - General Internal Medicine 05/22/22 09/07/22 [facility], Pcp [address] [place] [address] PCP - General Internal Medicine 09/08/22 11/08/22 Hawa Torres MD [address] [place] [address] PCP - General Internal Medicine 11/09/22 Taya Gonzales MD Specialist Cardiology 11/01/20 Chandan Breen PA Specialist Cardiology 11/01/20 02/20/24 Jessi Erwin DNP [address] [place] [address] Specialist Nurse Practitioner Family 02/21/24 documented as of this encounter
--- OUTSIDE RECORDS SUMMARY | 2024-11-11 10:53 | XMS_ITS | Encounter Summary ---
Author Organization [facility] Address [address] [place] [address] Care Team Providers Care Automatic Corn Grinder Operator Name Role Phone Hawa Torres MD Primary Care Provider UnavailTaya Liar MD Unavailable +[phone] Chandan Breen Unavailable Rancho Matthews MD Primary Care Provider + [facility], [facility] Primary Care Provider UnavailRancho Brock MD Primary Care Provider +[phone] Hawa Torres MD Primary Care Provider Unavaila Hawa Maddox MD Primary Care Provider Unavaila elpidio [facility], Pcp Primary Care Provider Hawa Zavala MD Primary Care Provider Unavaila ble [facility], Pcp Primary Care Provider Hawa Zavala MD Primary Care Provider Unavaila Melonie Rojas DO Primary Care Pro vider Unavailable [facility], Pcp Primary Care Provider Hawa Zavala MD Primary Care Provider Unavaila Jessi Cagle [facility] Unavailable [phone] Encounter Details Date Type Department Care Team Description 11/23/2020 SCAN Medical Records [address] [place] [address] Abstract, Provider Social History Tobacco Use Types [...] on filedocumented in this encounter Care Teams Automatic Corn Grinder Operator Relationship Specialty Start Date End Date Hawa Torres MD PCP - General Internal Medicine 09/09/15 12/19/20 Rancho Matthews MD [address] [place] [address] 63999 PCP - General Internal Medicine 12/20/20 03/22/21 [facility], Pcp [address] [place] [address] 57077 PCP - General Internal Medicine 03/23/21 04/11/21 Rancho Matthews MD [address] [place] [address] 80238 PCP - General Internal Medicine 04/12/21 04/12/21 Hawa Torres MD [address] [place] [address] 65929 PCP - General Internal Medicine 04/13/21 06/05/21 Hawa Torres MD [address] [place] [address] 64685 PCP - General Internal Medicine 06/06/21 08/07/21 [facility], Pcp [address] [place] [address] 66478 PCP - General Internal Medicine 08/08/21 10/27/21 Hawa Torres MD PCP - General Internal Medicine 10/28/21 04/11/22 [facility], Pcp [address] [place] [address] 25768 PCP - General Internal Medicine 04/12/22 05/01/22 Hawa Torres MD [address] [place] [address] 89261 PCP - General Internal Medicine 05/02/22 05/21/22 Melonie Sorensen DO [address] [place] [address] 29570 PCP - General Internal Medicine 05/22/22 09/07/22 [facility], Pcp [address] [place] [address] 54823 PCP - General Internal Medicine 09/08/22 11/08/22 Hawa Torres MD [address] [place] [address] 07129 PCP - General Internal Medicine 11/09/22 Taya Gonzales MD Specialist Cardiology 11/01/20 Chandan Breen PA Specialist Cardiology 11/01/20 02/20/24 Jessi Erwin, KITTY [address] [place] [address] 56067 Specialist Nurse Practitioner [facility] 02/21/24 documented as of this encounter
--- OUTSIDE RECORDS SUMMARY | 2024-11-11 10:53 | XMS_ITS | Encounter Summary ---
Author Organization [facility] Address [address] [place] [address] Care Team Providers Care Grid Operator Name Role Phone Taya Gonzales MD Unavailable [phone] Chandan Breen Unavailable Hawa Torres MD Primary Care Provider Unavaila Jessi Cagle DNP Unavailable [phone] Encounter Details Date Type Department Care Team Description 01/10/2024 Hospital Medical Records [address] [place] [id number] [place] [address] Social History Tobacco Use Types Packs/Day Years [...] Date/Time Associated Diagnosis Comments OUTSIDE EKG Routine 01/10/2024 OUTSIDE EKG Routine 01/10/2024 OUTSIDE LAB Routine 01/10/2024 documented in this encounter Results * OUTSIDE LAB (01/10/2024) Provider Abstract LAB * OUTSIDE EKG (01/10/2024) Provider Abstract CARDIOLOGY * OUTSIDE EKG (01/10/2024) Provider Abstract CARDIOLOGY documented in this encounter Visit Diagnoses Not on filedocumented in this encounter Care Teams Grid Operator Relationship Specialty Start Date End Date Hawa Torres MD PCP - General Internal Medicine 11/09/22 Taya Gonzales MD Specialist Cardiology 11/01/20 Chandan Breen PA Specialist Cardiology 11/01/20 02/20/24 Jessi Erwin DNP Specialist Nurse Practitioner Family 02/21/24 documented as of this encounter
--- OUTSIDE RECORDS SUMMARY | 2024-11-11 10:53 | XMS_ITS | Encounter Summary ---
Author Organization [facility] Address [address] [place] [address] Care Team Providers Care Beauty Director Name Role Phone Hawa Torres MD Primary Care Provider UnavailTaya Lira MD Unavailable [phone] Chandan Breen Unavailable Rancho Matthews MD Primary Care Provider + [facility], Pcp Primary Care Provider UnavailRancho Brock MD Primary Care Provider +[phone] Hawa Torres MD Primary Care Provider Unavaila Hawa Maddox MD Primary Care Provider Unavaila elpidio [facility], Pcp Primary Care Provider UnavailHawa Barron MD Primary Care Provider Unavaila ble [facility], Pcp Primary Care Provider Hawa Zavala MD Primary Care Provider Unavaila ble Melonie Sorensen DO Primary Care Pro vider Unavailable [facility], Pcp Primary Care Provider Hawa Zavala MD Primary Care Provider Unavaila Jessi Cagle [facility] Unavailable + [phone] Reason for Visit * Reason Onset Date Comments other 11/09/2020 Pacemaker replac ement? Encounter Details Date Type Department Care Team Description 11/09/2020 Telephone Cardio PVC POC [address] [place], [place] [phone] Taya Gonzales MD [address] [place] [address] [phone] other (Pacemaker replacement?) Social History Tobacco Use Types Packs/Day Years [...] * Telephone Encounter - Dino Cano - 11/12/2020 1:[address] Gonzales, please see msg below- pt's dtr, Madelin called back and confirmed pt sees Dr Lorin Mcclelland for Oncology. Thanks. * Telephone Encounter - Hope Gibson - 11/12/2020 1:40 PM EST 11/12/20: Pt's ravinder stated that pt sees Dr. Lorin Mcclelland and phone # is [phone]. * Telephone Encounter - Dino Cano - 11/12/2020 1:31 PM EST Left vmail for pt/dtr on number provided explaining msg from SH below. Asked them to call back and provide name of Oncologist involved and [facility] may reach out to them directly to help facilitate this plan or get a truer sense of what they are looking for. * Telephone Encounter - Janae Abarca - 11/12/2020 11:51 AM EST 11/12/2020 pt called / Pt was waitiung for us to get Back to Her please Call her back Can`t have pacer moved Until Surgery ADARSH * Telephone Encounter - Dino Cano - 11/09/2020 5:00 PM EST Understood- will encourage her to have their office call/inform us of plan and needs before we can act. Thanks. * Telephone Encounter - Taya Gonzales MD - 11/09/2020 4:30 PM EST This is typically something the rad onc provider needs to talk with us about directly before we go down this road. Can we get the name of the doctor who wants to do all of this? Also, we need to get Dr Hardin involved in this decision making. This is not something we can just do. * Telephone Encounter - Dino Cano - 11/09/2020 12:[address] Gonzales, please see msg below. Pt needs PPM moved to opposite side for upcoming radiation treatments. Pt/dtr have questions re complexity of move, etimated recovery time and would like this addressed usha. I doid explain that you were covering [facility] this week and would get back to them as soon as you had a chance to go over this information. Madelin states pt has a surgery upcoming with ONC on 11/15/20. States pt will begin preliminary appts after that for anticipated Rad treatment in the weeks following this surgery. Thanks. * Telephone Encounter - Ronajackie Austyn - 11/09/2020 9:55 AM EST 11/09/20 Patients daughter Madelin Victor calling states per pt oncology her pacemaker needs to be moved from onside to the other as patient is going to be starting treaments and the pacemaker is on the side the will start the treatment on. Please call Madelin at [phone] documented in this encounter Plan of Treatment Not on file documented as of this encounter Visit Diagnoses Not on filedocumented in this encounter Care Teams Beauty Director Relationship Specialty Start Date End Date Hawa Torres MD PCP - General Internal Medicine 09/09/15 12/19/20 Rancho Matthews MD [address] [place] [address] 77846 PCP - General Internal Medicine 12/20/20 03/22/21 [facility], Pcp [address] [place] [address] 21695 PCP - General Internal Medicine 03/23/21 04/11/21 Rancho Matthews MD [address] [place] [address] 75971 PCP - General Internal Medicine 04/12/21 04/12/21 Hawa Torres MD [address] [place] [address] 94064 PCP - General Internal Medicine 04/13/21 06/05/21 Hawa Torres MD [address] [place] [address] 48940 PCP - General Internal Medicine 06/06/21 08/07/21 [facility], Pcp [address] [place] [address] 50802 PCP - General Internal Medicine 08/08/21 10/27/21 Hawa Torres MD PCP - General Internal Medicine 10/28/21 04/11/22 [facility], Pcp [address] [place] [address] 21353 PCP - General Internal Medicine 04/12/22 05/01/22 Hawa Torres MD [address] [place] [address] 39603 PCP - General Internal Medicine 05/02/22 05/21/22 Melonie Sorensen DO [address] [place] [address] 93826 PCP - General Internal Medicine 05/22/22 09/07/22 [facility], Pcp [address] [place] [address] 91109 PCP - General Internal Medicine 09/08/22 11/08/22 Hawa Torres MD [address] [place] [address] 70825 PCP - General Internal Medicine 11/09/22 Taya Gonzales MD Specialist Cardiology 11/01/20 Chandan Breen PA Specialist Cardiology 11/01/20 02/20/24 Jessi Erwin DNP [address] [place] [address] 01020 Specialist Nurse Practitioner [facility] 02/21/24 documented as of this encounter
--- OUTSIDE RECORDS SUMMARY | 2024-11-11 10:53 | XMS_ITS | Encounter Summary ---
Author Organization [facility] Address [address] [place] [address] Care Team Providers Care General Office Assistant Name Role Phone Hawa Torres MD Primary Care Provider Unavaila Taya Covington MD Unavailable +[phone] Chandan Breen Unavailable Rancho Matthews MD Primary Care Provider +[phone] [facility], Pcp Primary Care Provider UnavailRancho Brock MD Primary Care Provider +[phone] Hawa Torres MD Primary Care Provider Unavaila Hawa Maddox MD Primary Care Provider Unavaila elpidio [facility], Pcp Primary Care Provider UnavailHawa Barron MD Primary Care Provider Unavaila ble [facility], Pcp Primary Care Provider Hawa Zavala MD Primary Care Provider Unavaila Melonie Rojas DO Primary Care Pro vider Unavailable [facility], Pcp Primary Care Provider Hawa Zavala MD Primary Care Provider Unavaila Jessi Cagle [facility] Unavailable [phone] Encounter Details Date Type Department Care Team Description 11/30/2020 Orders Only Medical Records [address] [place] [address] Julio C Lawler MD [address] [place] [id number] Social History Tobacco Use Types Packs/Day Years [...] this encounter Results * OUTSIDE PATHOLOGY (11/15/2020) Jluio C Lawler MD OUTSIDE LAB documented in this encounter Visit Diagnoses Not on filedocumented in this encounter Care Teams General Office Assistant Relationship Specialty Start Date End Date Hawa Torres MD PCP - General Internal Medicine 09/09/15 12/19/20 Rancho Matthews MD [address] [place] [address] 76592 PCP - General Internal Medicine 12/20/20 03/22/[address] [address] PCP - General Internal Medicine 03/23/21 04/11/21 Rancho Matthews MD [address] [place] [address] 87818 PCP - General Internal Medicine 04/12/21 04/12/21 Hawa Torres MD [address] [place] [address] 80603 PCP - General Internal Medicine 04/13/21 06/05/21 Hawa Torres MD [address] [place] [address] 49077 PCP - General Internal Medicine 06/06/21 08/07/21 [facility], Pcp [address] [place] [address] 22496 PCP - General Internal Medicine 08/08/21 10/27/21 Hawa Torres MD PCP - General Internal Medicine 10/28/21 04/11/22 [facility], Pcp [address] [place] [address] 93396 PCP - General Internal Medicine 04/12/22 05/01/22 Hawa Torres MD [address] [place] [address] 59023 PCP - General Internal Medicine 05/02/22 05/21/22 Melonie Sorensen DO [address] [place] [address] 91533 PCP - General Internal Medicine 05/22/22 09/07/22 [facility], Pcp [address] [place] [address] 89786 PCP - General Internal Medicine 09/08/22 11/08/22 Hawa Torres MD [address] [place] [address] 78297 PCP - General Internal Medicine 11/09/22 Taya Gonzales MD Specialist Cardiology 11/01/20 Chandan Breen PA Specialist Cardiology 11/01/20 02/20/24 Jessi Erwin DNP [address] [place] [address] 30477 Specialist Nurse Practitioner [facility] 02/21/24 documented as of this encounter
--- OUTSIDE RECORDS SUMMARY | 2024-11-11 10:53 | XMS_ITS | Encounter Summary ---
Author Organization [facility] Address [address] [place] [address] Care Team Providers Care Certified Caregiver Name Role Phone Hawa Torres MD Primary Care Provider UnavailTaya Lira MD Unavailable + Chandan Breen Unavailable + Rancho Matthews MD Primary Care Provider + [facility], Pcp Primary Care Provider UnavailRancho Brock MD Primary Care Provider + Hawa Torres MD Primary Care Provider Unavaila Hawa Maddox MD Primary Care Provider Unavaila elpidio [facility], Pcp Primary Care Provider UnavailHawa Barron MD Primary Care Provider Unavaila ble [facility], Pcp Primary Care Provider Hawa Zavala MD Primary Care Provider Unavaila Melonie Rojas DO Primary Care Pro vider Unavailable [facility], Pcp Primary Care Provider UnavailHawa Barron MD Primary Care Provider Unavaila Jessi Cagle [facility] Unavailable + Encounter Details Date Type Department Care Team Description 12/02/2020 SCAN Medical Records [address] [place] [address] 27667 Rancho Matthews MD [address] [place] [address] [phone] Social History Tobacco Use Types Packs/Day Years [...] Date/Time Associated Diagnosis Comments OUTSIDE LAB Routine 12/02/2020 OUTSIDE LAB Routine 12/02/2020 documented in this encounter Results * OUTSIDE LAB (12/02/2020) Provider Abstract LAB * OUTSIDE LAB (12/02/2020) Provider Abstract LAB documented in this encounter Visit Diagnoses Not on filedocumented in this encounter Care Teams Certified Caregiver Relationship Specialty Start Date End Date Hawa Torres MD PCP - General Internal Medicine 09/09/15 12/19/20 Rancho Matthews MD [address] [place] [address] 49416 PCP - General Internal Medicine 12/20/20 03/22/21 [facility], [address] [address] PCP - General Internal Medicine 03/23/21 04/11/21 Rancho Matthews MD [address] [place] [address] 97859 PCP - General Internal Medicine 04/12/21 04/12/21 Hawa oTrres MD [address] [place] [address] 83684 PCP - General Internal Medicine 04/13/21 06/05/21 Hawa Torres MD [address] [place] [address] PCP - General Internal Medicine 06/06/21 08/07/21 [facility], Pcp [address] [place] [address] 01437 PCP - General Internal Medicine 08/08/21 10/27/21 Hawa Torres MD PCP - General Internal Medicine 10/28/21 04/11/22 [facility], Pcp [address] [place] [address] 09576 PCP - General Internal Medicine 04/12/22 05/01/22 Hawa Torres MD [address] [place] [address] PCP - General Internal Medicine 05/02/22 05/21/22 Melonie Sorensen, DO [address] [place] [address] PCP - General Internal Medicine 05/22/22 09/07/22 [facility], Pcp [address] [place] [address] PCP - General Internal Medicine 09/08/22 11/08/22 Hawa Torres MD [address] [place] [address] PCP - General Internal Medicine 11/09/22 Taya Gonzales MD Specialist Cardiology 11/01/20 Chandan Breen PA Specialist Cardiology 11/01/20 02/20/24 Jessi Erwin DNP [address] [place] [address] 87132 Specialist Nurse Practitioner [facility] 02/21/24 documented as of this encounter
--- OUTSIDE RECORDS SUMMARY | 2024-11-11 10:53 | XMS_ITS | Encounter Summary ---
Author Organization [facility] Address [address] [place] [address] Care Team Providers Care Strategies Analyst Name Role Phone Hawa Torres MD Primary Care Provider Unavaila Taya Covington MD Unavailable +[phone] Chandan Breen Unavailable Rancho Matthews MD Primary Care Provider +[phone] [facility], [facility] Primary Care Provider UnavailRancho [...] Cagle [facility] Unavailable +[phone] Reason for Visit * Reason Comments Remote Device Check Device Alert / Thora cic Impdedance suggestive of fluid Encounter Details Date Type Department Care Team Description 11/23/2020 Remote Device Check Cardio PVC POC [address] [place] [address] Nikhil Sorenson MD [address] [place], [place] [phone] Social History Tobacco Use Types Packs/Day Years [...] on filedocumented in this encounter Care Teams Strategies Analyst Relationship Specialty Start Date End Date Hawa Torres MD PCP - General Internal Medicine 09/09/15 12/19/20 Rancho Matthews MD [address] [place] [address] 75741 PCP - General Internal Medicine 12/20/20 03/22/21 [facility], [address] [address] PCP - General Internal Medicine 03/23/21 04/11/21 Rancho Matthews MD [address] [place] [address] 50812 PCP - General Internal Medicine 04/12/21 04/12/21 Hawa Torres MD [address] [place] [address] 14056 PCP - General Internal Medicine 04/13/21 06/05/21 Hawa Torres MD [address] [place] [address] 03027 PCP - General Internal Medicine 06/06/21 08/07/21 [facility], Pcp [address] [place] [address] 07447 PCP - General Internal Medicine 08/08/21 10/27/21 Hawa Torres MD PCP - General Internal Medicine 10/28/21 04/11/22 [facility], Pcp [address] [place] [address] 91432 PCP - General Internal Medicine 04/12/22 05/01/22 Hawa Torres MD [address] [place] [address] 24335 PCP - General Internal Medicine 05/02/22 05/21/22 Melonie Sorensen, [address] [place] [address] 15832 PCP - General Internal Medicine 05/22/22 09/07/22 [facility], Pcp [address] [place] [address] 54483 PCP - General Internal Medicine 09/08/22 11/08/22 Hawa Torres MD [address] [place] [address] 50831 PCP - General Internal Medicine 11/09/22 Taya Gonzales MD Specialist Cardiology 11/01/20 Chandan Breen PA Specialist Cardiology 11/01/20 02/20/24 Jessi Erwin DNP [address] [place] [address] 27539 Specialist Nurse Practitioner [facility] 02/21/24 documented as of this encounter
--- OUTSIDE RECORDS SUMMARY | 2024-11-11 10:53 | XMS_ITS | Encounter Summary ---
Author Organization [facility] Address [address] [place] [address] Care Team Providers Care Auto Wheel Alignment Specialist Name Role Phone Hawa Torres MD Primary Care Provider UnavailTaya Lira MD Unavailable +[phone] Chandan Breen Unavailable + Rancho Matthews MD Primary Care Provider + [facility], [facility] Primary Care Provider UnavailRancho Brock MD Primary Care Provider +[phone] Hawa Torres MD Primary Care Provider Unavaila Hawa Maddox MD Primary Care Provider Unavaila elpidio [facility], Pcp Primary Care Provider UnavailHawa Barron MD Primary Care Provider Unavaila ble [facility], Pcp Primary Care Provider Hawa Zavala MD Primary Care Provider Unavaila Melonie Rojas DO Primary Care Pro vider Unavailable [facility], Pcp Primary Care Provider Hawa Zavala MD Primary Care Provider Unavaila Jessi Cagle [facility] Unavailable + Encounter Details Date Type Department Care Team Description 11/04/2020 Repair Department Manager Report Medical Records [address] [place] [id number] Lorin Mcclelland MD Social History Tobacco Use [...] filedocumented in this encounter Care Teams Auto Wheel Alignment Specialist Relationship Specialty Start Date End Date Hawa Torres MD PCP - General Internal Medicine 09/09/15 12/19/20 Rancho Matthews MD [address] [place] [address] PCP - General Internal Medicine 12/20/20 03/22/21 [facility], [place] [phone] PCP - General Internal Medicine 03/23/21 04/11/21 Rancho Matthews MD [address] [place] [address] 01405 PCP - General Internal Medicine 04/12/21 04/12/21 Hawa Torres MD [address] [place] [address] 80322 PCP - General Internal Medicine 04/13/21 06/05/21 Hawa Torres MD [address] [place] [address] 45550 PCP - General Internal Medicine 06/06/21 08/07/21 [facility], [address] [address] PCP - General Internal Medicine 08/08/21 10/27/21 Hawa Torres MD PCP - General Internal Medicine 10/28/21 04/11/22 [facility], Pcp [address] [place] [address] 77990 PCP - General Internal Medicine 04/12/22 05/01/22 Hawa Torres MD [address] [place] [address] 94959 PCP - General Internal Medicine 05/02/22 05/21/22 Melonie Sorensen DO [address] [place] [address] 10197 PCP - General Internal Medicine 05/22/22 09/07/22 [facility], Pcp [address] [place] [address] 50988 PCP - General Internal Medicine 09/08/22 11/08/22 Hawa Torres MD [address] [place] [address] 40240 PCP - General Internal Medicine 11/09/22 Taya Gonzales MD Specialist Cardiology 11/01/20 Chandan Breen PA Specialist Cardiology 11/01/20 02/20/24 Jessi Erwin, KITTY [address] [place] [address] 38551 Specialist Nurse Practitioner [facility] 02/21/24 documented as of this encounter
--- OUTSIDE RECORDS SUMMARY | 2024-11-11 10:53 | XMS_ITS | Encounter Summary ---
Author Organization [facility] Address [address] [place] [address] Care Team Providers Care Heater Mechanic Name Role Phone Taya Gonzales MD Unavailable [phone] Chandan Breen Unavailable Hawa Torres MD Primary Care Provider Unavaila Jessi Cagle DNP Unavailable [phone] Encounter Details Date Type Department Care Team Description 04/04/2023 [facility] Report Medical Records [address] [place] [id number] Abstract, Provider Social History Tobacco Use Types [...] on filedocumented in this encounter Care Teams Heater Mechanic Relationship Specialty Start Date End Date Hawa Torres MD PCP - General Internal Medicine 11/09/22 Taya Gonzales MD Specialist Cardiology 11/01/20 Chandan Breen PA Specialist Cardiology 11/01/20 02/20/24 Jessi Erwin DNP Specialist Nurse Practitioner Family 02/21/24 documented as of this encounter
--- OUTSIDE RECORDS SUMMARY | 2024-11-11 10:53 | XMS_ITS | Encounter Summary ---
Author Organization [facility] Address [address] [place] [address] Care Team Providers Care Enterprise Infrastructure Architect Name Role Phone Hawa Trores MD Primary Care Provider UnavailTaya Lira MD Unavailable +[phone] Chandan Breen Unavailable Rancho Matthews MD Primary Care Provider +[phone] [facility], Pcp Primary Care Provider UnavailRancho Brock MD Primary Care Provider +[phone] Hawa Torres MD Primary Care Provider Unavaila Hawa Maddox MD Primary Care Provider Unavaila elpidio [facility], Pcp Primary Care Provider Hawa Zavala MD Primary Care Provider Unavaila ble [facility], Pcp Primary Care Provider Hawa Zavala MD Primary Care Provider Unavaila Melonie Rojas DO Primary Care Pro vider Unavailable [facility], Pcp Primary Care Provider Hawa Zavala MD Primary Care Provider Unavaila Jessi Cagle [facility] Unavailable +[phone] Encounter Details Date Type Department Care Team Description 11/25/2020 Telephone Cardio PVCA Diag Testing 101 300 [facility] [address] [place] [address] Julia Marcos, ANTONINO 300 [facility] [address] [place] [address] Social History Tobacco Use Types [...] with daughter - pt currently inpatient at [facility] with PE. Reported that patient will require left sided breast radiation - some question of device repositioning - I will reach out to Dr Mcclelland documented in this encounter Plan of Treatment Not on file documented as of this encounter Visit Diagnoses Not on filedocumented in this encounter Care Teams Enterprise Infrastructure Architect Relationship Specialty Start Date End Date Hawa Torres MD PCP - General Internal Medicine 09/09/15 12/19/20 Rancho Matthews MD [address] [place] [address] 51895 PCP - General Internal Medicine 12/20/20 03/22/21 [facility], [address] [address] PCP - General Internal Medicine 03/23/21 04/11/21 Rancho Matthews MD [address] [place] [address] 42773 PCP - General Internal Medicine 04/12/21 04/12/21 Hawa Torres MD [address] [place] [address] 84004 PCP - General Internal Medicine 04/13/21 06/05/21 Hawa Torres MD [address] [place] [address] 05249 PCP - General Internal Medicine 06/06/21 08/07/21 [facility], Pcp [address] [place] [address] 6[address]16 PCP - General Internal Medicine 08/08/21 10/27/21 Hawa Torres MD PCP - General Internal Medicine 10/28/21 04/11/22 [facility], Pcp [address] [place] [address] 58388 PCP - General Internal Medicine 04/12/22 05/01/22 Hawa Torres MD [address] [place] [address] 58550 PCP - General Internal Medicine 05/02/22 05/21/22 Melonie Sorensen, DO [address] [place] [address] 47431 PCP - General Internal Medicine 05/22/22 09/07/22 [facility], Pcp [address] [place] [address] 48335 PCP - General Internal Medicine 09/08/22 11/08/22 Hawa Torres MD [address] [place] [address] 78268 PCP - General Internal Medicine 11/09/22 Taya Gonzales MD Specialist Cardiology 11/01/20 Chandan Breen PA Specialist Cardiology 11/01/20 02/20/24 Jessi Erwin DNP [address] [place] [address] 48371 Specialist Nurse Practitioner [facility] 02/21/24 documented as of this encounter
--- OUTSIDE RECORDS SUMMARY | 2024-11-11 10:53 | XMS_ITS | Encounter Summary ---
Author Organization [facility] Address [address] [place] [address] Care Team Providers Care Crop Scout Name Role Phone Hawa Torres MD Primary Care Provider Unavaila Taya Covington MD Unavailable [phone] Chandan Breen Unavailable Rancho Matthews MD Primary Care Provider +[phone] [facility], Pcp Primary Care Provider UnavailRancho Brock MD Primary Care Provider +[phone] Hawa Torres MD Primary Care Provider Unavaila Hawa Maddox MD Primary Care Provider Unavaila elpidio [facility], Pcp Primary Care Provider UnavailHawa Barron MD Primary Care Provider Unavaila ble [facility], Pcp Primary Care Provider Hawa Zavala MD Primary Care Provider Unavaila ble Melonie Sorensen DO Primary Care Pro vider Unavailable [facility], Pcp Primary Care Provider Hawa Zavala MD Primary Care Provider Unavaila Jessi Cagle [facility] Unavailable [phone] Encounter Details Date Type Department Care Team Description 10/26/2020 Orders Only General Surgery 271 [address] [place] [address] Julio C Lawler MD [address] [address] Microcalcifications of the breast Social History Tobacco [...] Procedure Name Priority Date/Time Associated Diagnosis Comments [place] BX BREAST W/DEVICE 1ST LESION STEREOTACTIC GUID Routine 10/21/2020 Microcalcifications of the breast documented in this encounter Results * BX BREAST W DEVICE 1ST LESION STEREOTACTIC GUIDE (10/21/2020) Julio C Lawler MD MAMMOGRAPHY documented in this encounter Visit Diagnoses Diagnosis Microcalcifications of the breast Mammographic microcalcification documented in this encounter Care Teams Crop Scout Relationship Specialty Start Date End Date Hawa Torres MD PCP - General Internal Medicine 09/09/15 12/19/20 Rancho Matthews MD [address] [place] [address]74 PCP - General Internal Medicine 12/20/20 03/22/[address] [address] PCP - General Internal Medicine 03/23/21 04/11/21 Rancho Matthews MD [address] [place] [address] 32823 PCP - General Internal Medicine 04/12/21 04/12/21 Hawa Torres MD [address] [place] [address] 31744 PCP - General Internal Medicine 04/13/21 06/05/21 Hawa Torres MD [address] [place] [address] 66831 PCP - General Internal Medicine 06/06/21 08/07/21 [facility], Pcp [address] [place] [address] PCP - General Internal Medicine 08/08/21 10/27/21 Hawa Torres MD PCP - General Internal Medicine 10/28/21 04/11/22 [facility], Pcp [address] [place] [address] PCP - General Internal Medicine 04/12/22 05/01/22 Hawa Torres MD [address] [place] [address] 84413 PCP - General Internal Medicine 05/02/22 05/21/22 Melonie Sorensen DO [address] [place] [address] 93094 PCP - General Internal Medicine 05/22/22 09/07/22 [facility], Pcp [address] [place] [address] 59831 PCP - General Internal Medicine 09/08/22 11/08/22 Hawa Torres MD [address] [place] [address] 49173 PCP - General Internal Medicine 11/09/22 Taya Gonzales MD Specialist Cardiology 11/01/20 Chandan Breen PA Specialist Cardiology 11/01/20 02/20/24 Jessi Erwin DNP [address] [place] [address] 28628 Specialist Nurse Practitioner Family 02/21/24 documented as of this encounter
--- OUTSIDE RECORDS SUMMARY | 2024-11-11 10:54 | XMS_ITS | Encounter Summary ---
Author Organization [facility] Address [address] [place] [address] Care Team Providers Care Commercial Property Administrator Name Role Phone Taya Gonzales MD Unavailable [phone] Chandan Breen Unavailable + Rancho Matthews MD Primary Care Provider [phone] [facility], Pcp Primary Care Provider UnavailRancho Brock MD Primary Care Provider [phone] Hawa Torres MD Primary Care Provider Unavaila Hawa Maddox MD Primary Care Provider Unavaila ble [facility], Pcp Primary Care Provider UnavailHawa Barron MD Primary Care Provider Unavaila ble [facility], Pcp Primary Care Provider UnavailHawa Barron MD Primary Care Provider Unavaila ble Melonie Sorensen DO Primary Care Pro vider Unavailable [facility], Pcp Primary Care Provider UnavailHawa Barron MD Primary Care Provider Unavaila ble Jessi Erwin [facility] Unavailable [phone] Reason for Visit * Reason Comments E-prescribe Rx Request Encounter Details Date Type Department Care Team Description 03/05/2021 Refill Adult Medicine [address] [id number] Rancho Matthews MD [address] [place] [address] [phone] E-prescribe Rx Request Social History Tobacco Use [...] Miscellaneous Notes * Telephone Encounter - Jessica Abreu M.A. - 03/07/2021 9:31 AM EDT Lab Results Component Value Date NA 139 01/21/2021 K 5.0 01/21/2021 CO2 32 01/21/2021 CL 104 01/21/2021 BUN 47 01/21/2021 CREAT 1.69 01/21/2021 GLU 210 06/25/2020 CA 11.5 01/21/2021 GFR 29 01/21/[address] Matthews 03/11/21 * Telephone Encounter - Trae Bolden - 03/05/2021 12:39 PM EDT Patient would like script to be: E-PRESCRIBED/FAXED TO PHARMACY WHEN WAS THE PATIENT'S LAST APPOINTMENT IN ADULT MEDICINE? 01/31/21 WHEN WAS THE LAST TIME THE PATIENT SAW THEIR PCP? 01/31/21 Does patient have an upcoming appointment? Yes 03/11/21 (THE MEDICATION REQUESTED IS ON THE MED [...] N/A Patients current insurance carrier is: Payor: [facility] [employer]FS / Plan: [employer] PREMIUM $10 NAGA / Product Type: MEDICARE [id number] documented in this encounter Plan of Treatment Not on file documented as of this encounter Visit Diagnoses Not on filedocumented in this encounter Care Teams Commercial Property Administrator Relationship Specialty Start Date End Date Rancho Matthews MD [address] [place] [address] PCP - General Internal Medicine 12/20/20 03/22/21 [facility], Pcp [address] [place] [address] 14330 PCP - General Internal Medicine 03/23/21 04/11/21 Rancho Matthews MD [address] [place] [address] 58124 PCP - General Internal Medicine 04/12/21 04/12/21 Hawa Torres MD [address] [place] [address] 14628 PCP - General Internal Medicine 04/13/21 06/05/21 Hawa Torres MD [address] [place] [address] 82750 PCP - General Internal Medicine 06/06/21 08/07/21 [facility], Pcp [address] [place] [address] 61467 PCP - General Internal Medicine 08/08/21 10/27/21 Hawa Torres MD [address] [place] [address] 52301 PCP - General Internal Medicine 10/28/21 04/11/22 [facility], Pcp [address] [place] [address] 39697 PCP - General Internal Medicine 04/12/22 05/01/22 Hawa Torres MD [address] [place] [address] 98684 PCP - General Internal Medicine 05/02/22 05/21/22 Melonie Sorensen DO [address] [place] [address] 89802 PCP - General Internal Medicine 05/22/22 09/07/22 [facility], [address] [address] PCP - General Internal Medicine 09/08/22 11/08/22 Hawa Torres MD [address] [place] [address] 74164 PCP - General Internal Medicine 11/09/22 Taya Gonzales MD Specialist Cardiology 11/01/20 Chandan Breen PA Specialist Cardiology 11/01/20 02/20/24 Jessi Erwin DNP [address] [place] [address]05 Specialist Nurse Practitioner [facility] 02/21/24 documented as of this encounter
--- OUTSIDE RECORDS SUMMARY | 2024-11-11 10:54 | XMS_ITS | Encounter Summary ---
Author Organization [facility] Address [address] [place] [address] Care Team Providers Care Shore Worker Name Role Phone Hawa Torres MD Primary Care Provider Unavaila Taya Covington MD Unavailable [phone] Chandan Breen Unavailable Rancho Matthews MD Primary Care Provider +[phone] [facility], Pcp Primary Care Provider UnavailRancho Brock MD Primary Care Provider +[phone] Hawa Torres MD Primary Care Provider Unavaila Hawa Maddox MD Primary Care Provider Unavaila elpidio [facility], Pcp Primary Care Provider UnavailHawa Barron MD Primary Care Provider Unavaila ble [facility], Pcp Primary Care Provider Hawa Zavala MD Primary Care Provider Unavaila ble Melonie Sorensen DO Primary Care Pro vider Unavailable [facility], Pcp Primary Care Provider Hawa Zavala MD Primary Care Provider Unavaila Jessi Cagle [facility] Unavailable [phone] Reason for Visit * Reason Onset Date Comments Faxed Refill 01/29/2020 Encounter Details Date Type Department Care Team Description 01/29/2020 Telephone Medicine/Pediatrics - [address] [phone] Hawa Torres MD Faxed Refill Social History Tobacco Use Types [...] encounter Miscellaneous Notes * Telephone Encounter - Hawa Torres MD - 01/30/2020 5:17 PM EDT Tagamet sent * Telephone Encounter - Mariia BurroughsPSpencerNSpencer - 01/29/2020 4:06 PM EDT Please advise * Telephone Encounter - Angelica Harris - 01/29/2020 4:02 PM EDT Who is calling? The patient Name of the medication famotidine (PEPCID) 20 MG tablet What is the specific problem or interaction? On backorder If the patient is having a problem with taking the med - how long has the problem been going on? N/A documented in this encounter Plan of Treatment Not on file documented as of this encounter Visit Diagnoses Not on filedocumented in this encounter Care Teams Shore Worker Relationship Specialty Start Date End Date Hawa Torres MD PCP - General Internal Medicine 09/09/15 12/19/20 Rancho Matthews MD [address] [place] [address]183 PCP - General Internal Medicine 12/20/20 03/22/21 [facility], Pcp [address] [place] [address] 19669 PCP - General Internal Medicine 03/23/21 04/11/21 Rancho Matthews MD [address] [place] [address] 12510 PCP - General Internal Medicine 04/12/21 04/12/21 Hawa Torres MD [address] [place] [address] 59101 PCP - General Internal Medicine 04/13/21 06/05/21 Hawa Torres MD [address] [place] [address] 30035 PCP - General Internal Medicine 06/06/21 08/07/21 [facility], Pcp [address] [place] [address] 25041 PCP - General Internal Medicine 08/08/21 10/27/21 Hawa Torres MD PCP - General Internal Medicine 10/28/21 04/11/22 [facility], Pcp [address] [place] [address] 82048 PCP - General Internal Medicine 04/12/22 05/01/22 Hawa Torres MD [address] [place] [address] 51977 PCP - General Internal Medicine 05/02/22 05/21/22 Melonie Sorensen, DO [address] [place] [address] 88489 PCP - General Internal Medicine 05/22/22 09/07/22 [facility], Pcp [address] [place] [address] 89224 PCP - General Internal Medicine 09/08/22 11/08/22 Hawa Torres MD [address] [place] [address] 32174 PCP - General Internal Medicine 11/09/22 Taya Gonzales MD Specialist Cardiology 11/01/20 Chandan Breen PA Specialist Cardiology 11/01/20 02/20/24 Jessi Erwin, KITTY [address] [place] [address] 16697 Specialist Nurse Practitioner Family 02/21/24 documented as of this encounter
--- OUTSIDE RECORDS SUMMARY | 2024-11-11 10:54 | XMS_ITS | Encounter Summary ---
Author Organization [facility] Address [address] [place] [address] Care Team Providers Care Automotive Engineering Teacher Name Role Phone Hawa Torres MD Primary Care Provider UnavailTaya Lira MD Unavailable [phone] Chandan Breen Unavailable Rancho Matthews MD Primary Care Provider + [facility], Pcp Primary Care Provider UnavailRancho Brock MD Primary Care Provider +[phone] Hawa Torres MD Primary Care Provider Unavaila Hawa Maddox MD Primary Care Provider Unavaila elpidio [facility], Pcp Primary Care Provider UnavailHawa Barron MD Primary Care Provider Unavaila ble [facility], Pcp Primary Care Provider Hawa Zavala MD Primary Care Provider Unavaila Melonie Rojas DO Primary Care Pro vider Unavailable [facility], Pcp Primary Care Provider Hawa Zavala MD Primary Care Provider Unavaila Jessi Cagle [facility] Unavailable [phone] Encounter Details Date Type Department Care Team Description 03/20/2016 Transfer Records Medical Records [address] [place] [id number] [address] Kiran Social History Tobacco Use Types Packs/Day [...] filedocumented in this encounter Care Teams Automotive Engineering Teacher Relationship Specialty Start Date End Date Hawa Torres MD PCP - General Internal Medicine 09/09/15 12/19/20 Rancho Matthews MD [address] [place] [address]63 PCP - General Internal Medicine 12/20/20 03/22/21 [facility], Pcp [address] [place] [address] 07639 PCP - General Internal Medicine 03/23/21 04/11/21 Rancho Matthews MD [address] [place] [address] 79321 PCP - General Internal Medicine 04/12/21 04/12/21 Hawa Torres MD [address] [place] [address] 67167 PCP - General Internal Medicine 04/13/21 06/05/21 Hawa Torres MD [address] [place] [address] 09817 PCP - General Internal Medicine 06/06/21 08/07/21 [facility], Pcp [address] [place] [address] 11098 PCP - General Internal Medicine 08/08/21 10/27/21 Hawa Torres MD PCP - General Internal Medicine 10/28/21 04/11/22 [facility], Pcp [address] [place] [address] 78809 PCP - General Internal Medicine 04/12/22 05/01/22 Hawa Torres MD [address] [place] [address] 16773 PCP - General Internal Medicine 05/02/22 05/21/22 Melonie Sorensen, [address] [place] [address] 27739 PCP - General Internal Medicine 05/22/22 09/07/22 [facility], Pcp [address] [place] [address] 23616 PCP - General Internal Medicine 09/08/22 11/08/22 Hawa Torres MD [address] [place] [address] 67867 PCP - General Internal Medicine 11/09/22 Taya Gonzales MD Specialist Cardiology 11/01/20 Chandan Breen PA Specialist Cardiology 11/01/20 02/20/24 Jessi Erwin DNP [address] [place] [address]1020 Specialist Nurse Practitioner [facility] 02/21/24 documented as of this encounter
--- OUTSIDE RECORDS SUMMARY | 2024-11-11 10:54 | XMS_ITS | Encounter Summary ---
Author Organization [facility] Address [address] [place] [address] Care Team Providers Care Applications Coordinator Name Role Phone Hawa Torres MD Primary Care Provider UnavailTaya Lira MD Unavailable + Chandan Breen Unavailable + Rancho Matthews MD Primary Care Provider + [facility], Pcp Primary Care Provider UnavailRancho Brock MD Primary Care Provider + Hawa Torres MD Primary Care Provider Unavaila Hawa Maddox MD Primary Care Provider Unavaila elpidio [facility], Pcp Primary Care Provider UnavailHawa Barron MD Primary Care Provider Unavaila ble [facility], Pcp Primary Care Provider Hawa Zavala MD Primary Care Provider Unavaila Melonie Rojas DO Primary Care Pro vider Unavailable [facility], Pcp Primary Care Provider Hawa Zavala MD Primary Care Provider Unavaila Jessi Cagle [facility] Unavailable + Encounter Details Date Type Department Care Team Description 03/14/2016 Hospital Medical Records [address] [place] [address] Taya Gonzales MD [address] [place] [address] [id number] Social History Tobacco Use Types Packs/Day Years [...] on filedocumented in this encounter Care Teams Applications Coordinator Relationship Specialty Start Date End Date Hawa Torres MD PCP - General Internal Medicine 09/09/15 12/19/20 Rancho Matthews MD [address] [place] [address] PCP - General Internal Medicine 12/20/20 03/22/21 [facility], Pcp [address] [place] [address]331 PCP - General Internal Medicine 03/23/21 04/11/21 Rancho Matthews MD [address] [place] [address] 02213 PCP - General Internal Medicine 04/12/21 04/12/21 Hawa Torres MD [address] [place] [address] 56627 PCP - General Internal Medicine 04/13/21 06/05/21 Hawa Torres MD [address] [place] [address] 00896 PCP - General Internal Medicine 06/06/21 08/07/21 [facility], Pcp [address] [place], [place] [address] [place] [address] PCP - General Internal Medicine 08/08/21 10/27/21 Hawa Torres MD PCP - General Internal Medicine 10/28/21 04/11/22 [facility], Pcp [address] [place] [address] 03479 PCP - General Internal Medicine 04/12/22 05/01/22 Hawa Torres MD [address] [place] [address] 99015 PCP - General Internal Medicine 05/02/22 05/21/22 Melonie Sorensen DO [address] [place] [address] 85967 PCP - General Internal Medicine 05/22/22 09/07/22 [facility], [address] [address] PCP - General Internal Medicine 09/08/22 11/08/22 Hawa Torres MD [address] [place] [address] 73778 PCP - General Internal Medicine 11/09/22 Taya Gonzales MD Specialist Cardiology 11/01/20 Chandan Breen PA Specialist Cardiology 11/01/20 02/20/24 Jessi Erwin DNP [address] [place] [address] 28158 Specialist Nurse Practitioner Family 02/21/24 documented as of this encounter
--- OUTSIDE RECORDS SUMMARY | 2024-11-11 10:54 | XMS_ITS | Encounter Summary ---
Author Organization [facility] Address [address] [place] [address] Care Team Providers Care Planner Name Role Phone Hawa Torres MD Primary Care Provider UnavailTaya Lira MD Unavailable +[phone] Chandan Breen Unavailable Rancho Matthews MD Primary Care Provider +[phone] [facility] Primary Care Provider UnavailRancho Brock MD Primary Care Provider +[phone] Hawa Torres MD Primary Care Provider Unavaila Hawa Maddox MD Primary Care Provider Unavaila elpidio [facility], Pcp Primary Care Provider UnavailHawa Barron MD Primary Care Provider Unavaila ble [facility], Pcp Primary Care Provider Hawa Zavala MD Primary Care Provider Unavaila Melonie Rojas DO Primary Care Pro vider Unavailable [facility], Pcp Primary Care Provider Hawa Zavala MD Primary Care Provider Unavaila Jessi Cagle [facility] Unavailable [phone] Encounter Details Date Type Department Care Team Description 03/14/2016 Hospital Medical Records [address] [place] [address] Social History Tobacco Use Types Packs/Day Years [...] on filedocumented in this encounter Care Teams Planner Relationship Specialty Start Date End Date Hawa Torres MD PCP - General Internal Medicine 09/09/15 12/19/20 Rancho Matthews MD [address] [place] [address]243 PCP - General Internal Medicine 12/20/20 03/22/21 [facility], Pcp [address] [place] [address] 64231 PCP - General Internal Medicine 03/23/21 04/11/21 Rancho Matthews MD [address] [place] [address] 17865 PCP - General Internal Medicine 04/12/21 04/12/21 Hawa Torres MD [address] [place] [address] 03296 PCP - General Internal Medicine 04/13/21 06/05/21 Hawa Torres MD [address] [place] [address] 44762 PCP - General Internal Medicine 06/06/21 08/07/21 [facility], Pcp [address] [place] [address] 41416 PCP - General Internal Medicine 08/08/21 10/27/21 Hawa Torres MD PCP - General Internal Medicine 10/28/21 04/11/22 [facility], Pcp [address] [place] [address] 83199 PCP - General Internal Medicine 04/12/22 05/01/22 Hawa Torres MD [address] [place] [address] 82181 PCP - General Internal Medicine 05/02/22 05/21/22 Melonie Sorensen DO [address] [place] [address] 53109 PCP - General Internal Medicine 05/22/22 09/07/22 [facility], Pcp [address] [place] [address] 54404 PCP - General Internal Medicine 09/08/22 11/08/22 Hawa Torres MD [address] [place] [address] 86587 PCP - General Internal Medicine 11/09/22 Taya Gonzales MD Specialist Cardiology 11/01/20 Chandan Breen PA Specialist Cardiology 11/01/20 02/20/24 Jessi Erwin, KITTY [address] [place] [address] 01020 Specialist Nurse Practitioner Family 02/21/24 documented as of this encounter
--- OUTSIDE RECORDS SUMMARY | 2024-11-11 10:54 | XMS_ITS | Encounter Summary ---
Author Organization [facility] Address [address] [place] [address] Care Team Providers Care Lockstitch Topstitcher Name Role Phone Hawa Torres MD Primary Care Provider Unavaila Taya Covington MD Unavailable [phone] Chandan Breen Unavailable Rancho Matthews MD Primary Care Provider +[phone] [facility], Pcp Primary Care Provider [...] Unavaila Jessi Cagle [facility] Unavailable [phone] Encounter Details Date Type Department Care Team Description 08/18/2019 Incoming Correspondence Medical Records [address] [place], [place] [id number] [place] [address] Social History Tobacco Use Types Packs/Day Years [...] on filedocumented in this encounter Care Teams Lockstitch Topstitcher Relationship Specialty Start Date End Date Hawa Torres MD PCP - General Internal Medicine 09/09/15 12/19/20 Rancho Matthews MD [address] [place] [address] PCP - General Internal Medicine 12/20/20 03/22/21 [facility], Pcp [address] [place] [address] 56918 PCP - General Internal Medicine 03/23/21 04/11/21 Rancho Matthews MD [address] [place] [address] 33443 PCP - General Internal Medicine 04/12/21 04/12/21 Hawa Torres MD [address] [place] [address] 86711 PCP - General Internal Medicine 04/13/21 06/05/21 Hawa Torres MD [address] [place] [address] 60119 PCP - General Internal Medicine 06/06/21 08/07/21 [facility], Pcp [address] [place] [address] 58632 PCP - General Internal Medicine 08/08/21 10/27/21 Hawa Torres MD PCP - General Internal Medicine 10/28/21 04/11/22 [facility], Pcp [address] [place] [address] 59762 PCP - General Internal Medicine 04/12/22 05/01/22 Hawa Torres MD [address] [place] [address] 60920 PCP - General Internal Medicine 05/02/22 05/21/22 Melonie Sorensen DO [address] [place] [address] 88785 PCP - General Internal Medicine 05/22/22 09/07/22 [facility], Pcp [address] [place] [address] 93284 PCP - General Internal Medicine 09/08/22 11/08/22 Hawa Torres MD [address] [place], [place] [phone] PCP - General Internal Medicine 11/09/22 Taya Gonzales MD Specialist Cardiology 11/01/20 Chandan Breen PA Specialist Cardiology 11/01/20 02/20/24 Jessi Erwin, KITTY [address] [place] [address] 27427 Specialist Nurse Practitioner [facility] 02/21/24 documented as of this encounter
--- OUTSIDE RECORDS SUMMARY | 2024-11-11 10:54 | XMS_ITS | Encounter Summary ---
Author Organization [facility] Address [address] [place] [address] Care Team Providers Care Lockstitch Coat Joiner Name Role Phone Taya Gonzales MD Unavailable [phone] Chandan Breen Unavailable + Rancho Matthews MD Primary Care Provider +[phone] [facility], Pcp Primary Care Provider UnavailRancho Brock MD Primary Care Provider +[phone] Hawa Torres MD Primary Care Provider Unavaila Hawa Maddox MD Primary Care Provider Unavaila ble [facility], Pcp Primary Care Provider UnavailHawa Barron MD Primary Care Provider Unavaila ble [facility], Pcp Primary Care Provider UnavailHawa Barron MD Primary Care Provider Unavaila ble Melonie Sorensen DO Primary Care Pro vider Unavailable [facility], Pcp Primary Care Provider UnavailHawa Barron MD Primary Care Provider Unavaila ble Jessi Erwin [facility] Unavailable [phone] Encounter Details Date Type Department Care Team Description 02/28/2021 SCAN Medical Records [address] [place] [address] Mattie Porrasi Social History Tobacco Use Types Packs/Day Years [...] Date/Time Associated Diagnosis Comments OUTSIDE ECHO Routine 02/28/2021 documented in this encounter Results * OUTSIDE ECHO (02/28/2021) Provider Default CARDIOLOGY documented in this encounter Visit Diagnoses Not on filedocumented in this encounter Care Teams Lockstitch Coat Joiner Relationship Specialty Start Date End Date Rancho Matthews MD [address] [place] [address] 79321 PCP - General Internal Medicine 12/20/20 03/22/21 [facility], Pcp [address] [place] [address] 35959 PCP - General Internal Medicine 03/23/21 04/11/21 Rancho Matthews MD [address] [place] [address] 44680 PCP - General Internal Medicine 04/12/21 04/12/21 Hawa Torres MD [address] [place] [address] 37284 PCP - General Internal Medicine 04/13/21 06/05/21 Hawa Torres MD [address] [place] [address] 50502 PCP - General Internal Medicine 06/06/21 08/07/21 [facility], [address] [address] PCP - General Internal Medicine 08/08/21 10/27/21 Hawa Torres MD [address] [place] [address] 56174 PCP - General Internal Medicine 10/28/21 04/11/22 [facility], Pcp [address] [place] [address] 53215 PCP - General Internal Medicine 04/12/22 05/01/22 Hawa Torres MD [address] [place] [address] 52915 PCP - General Internal Medicine 05/02/22 05/21/22 Melonie Sorensen, [address] [place] [address] 99465 PCP - General Internal Medicine 05/22/22 09/07/22 [facility], Pcp [address] [place] [address] 43995 PCP - General Internal Medicine 09/08/22 11/08/22 Hawa Torres MD [address] [place] [address] 95528 PCP - General Internal Medicine 11/09/22 Taya Gonzales MD Specialist Cardiology 11/01/20 Chandan Breen PA Specialist Cardiology 11/01/20 02/20/24 Jessi Erwin DNP [address] [place] [address] 35451 Specialist Nurse Practitioner [facility] 02/21/24 documented as of this encounter
--- OUTSIDE RECORDS SUMMARY | 2024-11-11 10:54 | XMS_ITS | Encounter Summary ---
Author Organization [facility] Address [address] [place] [address] Care Team Providers Care Automotive Fuel Systems Converter Name Role Phone Hawa Torres MD Primary Care Provider UnavailTaya Lira MD Unavailable [phone] Chandan Breen Unavailable Rancho Matthews MD Primary Care Provider + [facility] Primary Care Provider UnavailRancho Brock MD Primary Care Provider +[phone] Hawa Torres MD Primary Care Provider Unavaila Hawa Maddox MD Primary Care Provider Unavaila elpidio [facility], Pcp Primary Care Provider UnavailHawa Barron MD Primary Care Provider Unavaila ble [facility], Pcp Primary Care Provider Hawa Zavala MD Primary Care Provider Unavaila Melonie Rojas DO Primary Care Pro vider Unavailable [facility], Pcp Primary Care Provider Hawa Zavala MD Primary Care Provider Unavaila Jessi Cagle [facility] Unavailable [phone] Encounter Details Date Type Department Care Team Description 04/16/2019 Hospital Medical Records [address] [place] [address] Kilo Valero MD Social History Tobacco Use [...] filedocumented in this encounter Care Teams Automotive Fuel Systems Converter Relationship Specialty Start Date End Date Hawa Torres MD PCP - General Internal Medicine 09/09/15 12/19/20 Rancho Matthews MD [address] [place] [address] PCP - General Internal Medicine 12/20/20 03/22/21 [facility], Pcp [address] [place] [address] 12287 PCP - General Internal Medicine 03/23/21 04/11/21 Rancho Matthews MD [address] [place] [address] 63129 PCP - General Internal Medicine 04/12/21 04/12/21 Hawa Torres MD [address] [place] [address] 10501 PCP - General Internal Medicine 04/13/21 06/05/21 Hawa Torres MD [address] [place] [address] 73125 PCP - General Internal Medicine 06/06/21 08/07/21 [facility], Pcp [address] [place] [address] 43509 PCP - General Internal Medicine 08/08/21 10/27/21 Hawa Torres MD PCP - General Internal Medicine 10/28/21 04/11/22 [facility], Pcp [address] [place] [address] 95961 PCP - General Internal Medicine 04/12/22 05/01/22 Hawa Torres MD [address] [place] [address] 07487 PCP - General Internal Medicine 05/02/22 05/21/22 Melonie Sorensen DO [address] [place] [address] 49322 PCP - General Internal Medicine 05/22/22 09/07/22 [facility], Pcp [address] [place] [address] 87966 PCP - General Internal Medicine 09/08/22 11/08/22 Hawa Torres MD [address] [place], [place] [phone] PCP - General Internal Medicine 11/09/22 Taya Gonzales MD Specialist Cardiology 11/01/20 Chandan Breen PA Specialist Cardiology 11/01/20 02/20/24 Jessi Erwin, KITTY [address] [place] [address] 9[address]30 Specialist Nurse Practitioner [facility] 02/21/24 documented as of this encounter
--- OUTSIDE RECORDS SUMMARY | 2024-11-11 10:54 | XMS_ITS | Encounter Summary ---
Author Organization [facility] Address [address] [place] [address] Care Team Providers Care Oracle Soa Developer Name Role Phone Taya Gonzales MD Unavailable [phone] Chandan Breen Unavailable + Rancho Matthews MD Primary Care Provider +[phone] [facility], Pcp Primary Care Provider UnavailRancho Brock MD Primary Care Provider +[phone] Hawa Torres MD Primary Care Provider Unavaila Hawa Maddox MD Primary Care Provider Unavaila ble [facility], Pcp Primary Care Provider UnavailHawa Barron MD Primary Care Provider Unavaila ble [facility], Pcp Primary Care Provider Hawa Zavala MD Primary Care Provider Unavaila ble Melonie Sorensen DO Primary Care Pro vider Unavailable [facility], Pcp Primary Care Provider UnavailHawa Barron MD Primary Care Provider Unavaila ble Jessi Erwin [facility] Unavailable [phone] Encounter Details Date Type Department Care Team Description 02/28/2021 SCAN Medical Records [address] [place] [address] Abstract, Provider Social History Tobacco Use Types [...] on filedocumented in this encounter Care Teams Oracle Soa Developer Relationship Specialty Start Date End Date Rancho Matthews MD [address] [place] [address] PCP - General Internal Medicine 12/20/20 03/22/21 [facility], Pcp [address] [place], [place] [phone] PCP - General Internal Medicine 03/23/21 04/11/21 Rancho Matthews MD [address] [place] [address] PCP - General Internal Medicine 04/12/21 04/12/21 Hawa Torres MD [address] [place] [address] 70244 PCP - General Internal Medicine 04/13/21 06/05/21 Hawa Torres MD [address] [place] [address] 15759 PCP - General Internal Medicine 06/06/21 08/07/21 [facility], [address] [address] PCP - General Internal Medicine 08/08/21 10/27/21 Hawa Torres MD [address] [place] [address] 82754 PCP - General Internal Medicine 10/28/21 04/11/22 [facility], Pcp [address] [place] [address] 79287 PCP - General Internal Medicine 04/12/22 05/01/22 Hawa Torres MD [address] [place] [address] 43651 PCP - General Internal Medicine 05/02/22 05/21/22 Melonie Sorensen DO [address] [place] [address] 99680 PCP - General Internal Medicine 05/22/22 09/07/22 [facility], Pcp [address] [place] [address] 33630 PCP - General Internal Medicine 09/08/22 11/08/22 Hawa Torres MD [address] [place] [address] 03865 PCP - General Internal Medicine 11/09/22 Taya Gonzales MD Specialist Cardiology 11/01/20 Chandan Breen PA Specialist Cardiology 11/01/20 02/20/24 Jessi Erwin, KITTY [address] [place] [address] 45649 Specialist Nurse Practitioner [facility] 02/21/24 documented as of this encounter
--- OUTSIDE RECORDS SUMMARY | 2024-11-11 10:54 | XMS_ITS | Encounter Summary ---
Author Organization [facility] Address [address] [place] [address] Care Team Providers Care Lockstitch Topstitcher Name Role Phone Taya Gonzales MD Unavailable [phone] Chandan Breen Unavailable + Rancho Matthews MD Primary Care Provider [phone] [facility], Pcp Primary Care Provider UnavailRancho Brock MD Primary Care Provider [phone] Hawa Torres MD Primary Care Provider Unavaila Hawa Maddox MD Primary Care Provider Unavaila ble [facility], Pcp Primary Care Provider UnavailHawa Barron MD Primary Care Provider Unavaila ble [facility], Pcp Primary Care Provider UnavailHawa Barron MD Primary Care Provider Unavaila ble Melonie Sorensen DO Primary Care Pro vider Unavailable [facility], Pcp Primary Care Provider UnavailHawa Barron MD Primary Care Provider Unavaila ble Jessi Erwin [facility] Unavailable [phone] Encounter Details Date Type Department Care Team Description 03/01/2021 Hospital Medical Records [address] [place] [address] Rey Alfredo MD Social History Tobacco Use Types Packs/Day [...] Topstitcher Relationship Specialty Start Date End Date Rancho Matthews MD [address] [place] [address] 31136 PCP - General Internal Medicine 12/20/20 03/22/21 [facility], Pcp [address] [place] [address] 72933 PCP - General Internal Medicine 03/23/21 04/11/21 Rancho Matthews MD [address] [place] [address] 32667 PCP - General Internal Medicine 04/12/21 04/12/21 Hawa Torres MD [address] [place] [address] 09020 PCP - General Internal Medicine 04/13/21 06/05/21 Hawa Torres MD [address] [place] [address] 90251 PCP - General Internal Medicine 06/06/21 08/07/21 [facility], Pcp [address] [place] [address] 14735 PCP - General Internal Medicine 08/08/21 10/27/21 Hawa Torres MD [address] [place] [address] 89294 PCP - General Internal Medicine 10/28/21 04/11/22 [facility], Pcp [address] [place] [address] 96053 PCP - General Internal Medicine 04/12/22 05/01/22 Hawa Torres MD [address] [place] [address] 64635 PCP - General Internal Medicine 05/02/22 05/21/22 Melonie Sorensen DO [address] [place] [address] 35938 PCP - General Internal Medicine 05/22/22 09/07/22 [facility], [address] [address] PCP - General Internal Medicine 09/08/22 11/08/22 Hawa Torres MD [address] [place] [address] 43831 PCP - General Internal Medicine 11/09/22 Taya Gonzales MD Specialist Cardiology 11/01/20 Chandan Breen PA Specialist Cardiology 11/01/20 02/20/24 Jessi Erwin DNP [address] [place] [address] 46088 Specialist Nurse Practitioner [facility] 02/21/24 documented as of this encounter
--- OUTSIDE RECORDS SUMMARY | 2024-11-11 10:54 | XMS_ITS | Encounter Summary ---
Author Organization [facility] Address [address] [place] [address] Care Team Providers Care Health Information Administrator Name Role Phone Taya Gonzales MD Unavailable [phone] Chandan Breen Unavailable Rancho Matthews MD Primary Care Provider [phone] [facility], Pcp Primary Care Provider UnavailRancho Brock MD Primary Care Provider [phone] Hawa Torres MD Primary Care Provider Unavaila Hawa Maddox MD Primary Care Provider Unavaila ble [facility], Pcp Primary Care Provider UnavailHawa Barron MD Primary Care Provider Unavaila ble [facility], Pcp Primary Care Provider UnavailHawa Barron MD Primary Care Provider Unavaila ble Melonie Sorensen DO Primary Care Pro vider Unavailable [facility], Pcp Primary Care Provider UnavailHawa Barron MD Primary Care Provider Unavaila ble Jessi Erwin [facility] Unavailable [phone] Encounter Details Date Type Department Care Team Description 02/11/2021 Refill Adult Medicine [address] [phone] Rancho Matthews MD [address] [place] [address] [phone] Social History Tobacco Use Types Packs/Day Years [...] filedocumented in this encounter Care Teams Health Information Administrator Relationship Specialty Start Date End Date Rancho Matthews MD [address] [place] [address] 76756 PCP - General Internal Medicine 12/20/20 03/22/21 [facility], Pcp [address] [place] [address] 33334 PCP - General Internal Medicine 03/23/21 04/11/21 Rancho Matthews MD [address] [place] [address] 35843 PCP - General Internal Medicine 04/12/21 04/12/21 Hawa Torres MD [address] [place] [address] 64110 PCP - General Internal Medicine 04/13/21 06/05/21 Hawa Torres MD [address] [place] [address] 94208 PCP - General Internal Medicine 06/06/21 08/07/21 [facility], Pcp [address] [place] [address] 20385 PCP - General Internal Medicine 08/08/21 10/27/21 Hawa Torres MD [address] [place] [address] 94151 PCP - General Internal Medicine 10/28/21 04/11/22 [facility], Pcp [address] [place] [address] 98457 PCP - General Internal Medicine 04/12/22 05/01/22 Hawa Torres MD [address] [place] [address] 13068 PCP - General Internal Medicine 05/02/22 05/21/22 Melonie Sorensen, [address] [place] [address] 39519 PCP - General Internal Medicine 05/22/22 09/07/22 [facility], Pcp [address] [place] [address] 07275 PCP - General Internal Medicine 09/08/22 11/08/22 Hawa Torres MD [address] [place] [address] 06360 PCP - General Internal Medicine 11/09/22 Taya Gonzales MD Specialist Cardiology 11/01/20 Chandan Breen PA Specialist Cardiology 11/01/20 02/20/24 Jesis Erwin, KITTY [address] [place] [address] 31114 Specialist Nurse Practitioner Family 02/21/24 documented as of this encounter
--- OUTSIDE RECORDS SUMMARY | 2024-11-11 10:54 | XMS_ITS | Encounter Summary ---
Author Organization [facility] Address [address] [place] [address] Care Team Providers Care Showcase Maker Name Role Phone Hawa Torres MD Primary Care Provider UnavailTaya Lira MD Unavailable [phone] Chandan Breen Unavailable Rancho Matthews MD Primary Care Provider +[phone] [facility] Primary Care Provider UnavailRancho Brock MD Primary Care Provider +[phone] Hawa Torres MD Primary Care Provider Unavaila Hawa Maddox MD Primary Care Provider Unavaila elpidio [facility], Pcp Primary Care Provider UnavailHawa Barron MD Primary Care Provider Unavaila ble [facility], Pcp Primary Care Provider Hawa Zavala MD Primary Care Provider Unavaila Melonie Rojas DO Primary Care Pro vider Unavailable [facility], Pcp Primary Care Provider Hawa Zavala MD Primary Care Provider Unavaila Jessi Cagle [facility] Unavailable [phone] Encounter Details Date Type Department Care Team Description 03/13/2016 Hospital Medical Records [address] [place] [address] Social History Tobacco Use Types Packs/Day Years [...] on filedocumented in this encounter Care Teams Showcase Maker Relationship Specialty Start Date End Date Hawa Torers MD PCP - General Internal Medicine 09/09/15 12/19/20 Rancho Matthews MD [address] [place] [address] 45547 PCP - General Internal Medicine 12/20/20 03/22/21 [facility], Pcp [address] [place] [address] 91769 PCP - General Internal Medicine 03/23/21 04/11/21 Rancho Matthews MD [address] [place] [address] 03245 PCP - General Internal Medicine 04/12/21 04/12/21 Hawa Torres MD [address] [place] [address] 48746 PCP - General Internal Medicine 04/13/21 06/05/21 Hawa Torres MD [address] [place] [address] 51564 PCP - General Internal Medicine 06/06/21 08/07/21 [facility], Pcp [address] [place] [address] 63388 PCP - General Internal Medicine 08/08/21 10/27/21 Hawa Torres MD PCP - General Internal Medicine 10/28/21 04/11/22 [facility], Pcp [address] [place] [address] 89834 PCP - General Internal Medicine 04/12/22 05/01/22 Hawa Torres MD [address] [place] [address] 28365 PCP - General Internal Medicine 05/02/22 05/21/22 Melonie Sorensen DO [address] [place] [address] 43485 PCP - General Internal Medicine 05/22/22 09/07/22 [facility], Pcp [address] [place] [address] 40651 PCP - General Internal Medicine 09/08/22 11/08/22 Hawa Torres MD [address] [place] [address] 11557 PCP - General Internal Medicine 11/09/22 Taya Gonzales MD Specialist Cardiology 11/01/20 Chandan Breen PA Specialist Cardiology 11/01/20 02/20/24 Jessi Erwin, KITTY [address] [place] [address] 01020 Specialist Nurse Practitioner Family 02/21/24 documented as of this encounter
--- OUTSIDE RECORDS SUMMARY | 2024-11-11 10:54 | XMS_ITS | Encounter Summary ---
Author Organization [facility] Address [address] [place] [address] Care Team Providers Care Mailing Machine Assistant Name Role Phone Hawa Torres MD Primary Care Provider UnavailTaya Lira MD Unavailable + Chandan Breen Unavailable + Rancho Matthews MD Primary Care Provider + [facility], Pcp Primary Care Provider UnavailRancho Brock MD Primary Care Provider + Hawa Torres MD Primary Care Provider Unavaila Hawa Maddox MD Primary Care Provider Unavaila elpidio [facility], Pcp Primary Care Provider UnavailHawa Barron MD Primary Care Provider Unavaila ble [facility], Pcp Primary Care Provider Hawa Zavala MD Primary Care Provider Unavaila Melonie Rojas DO Primary Care Pro vider Unavailable [facility], Pcp Primary Care Provider Hawa Zavala MD Primary Care Provider Unavaila Jessi Cagle [facility] Unavailable + Encounter Details Date Type Department Care Team Description 09/30/2019 Family Partner Report Medical Records [address] [place] [address] 40031 Taya Gonzales MD [address] [place] [address] [phone] Social History Tobacco Use Types Packs/Day Years [...] on filedocumented in this encounter Care Teams Mailing Machine Assistant Relationship Specialty Start Date End Date Hawa Torres MD PCP - General Internal Medicine 09/09/15 12/19/20 Rancho Matthews MD [address] [place] [address] PCP - General Internal Medicine 12/20/20 03/22/21 [facility], Pcp [address] [place] [address] 12471 PCP - General Internal Medicine 03/23/21 04/11/21 Rancho Matthews MD [address] [place] [address] 25570 PCP - General Internal Medicine 04/12/21 04/12/21 Hawa Torres MD [address] [place] [address] 08138 PCP - General Internal Medicine 04/13/21 06/05/21 Hawa Torres MD [address] [place] [address] 14974 PCP - General Internal Medicine 06/06/21 08/07/21 [facility], Pcp [address] [place], [place] [address] [place] [address] PCP - General Internal Medicine 08/08/21 10/27/21 Hawa Torres MD PCP - General Internal Medicine 10/28/21 04/11/22 [facility], Pcp [address] [place] [address] 27458 PCP - General Internal Medicine 04/12/22 05/01/22 Hawa Torres MD [address] [place] [address] 02714 PCP - General Internal Medicine 05/02/22 05/21/22 Melonie Sorensen DO [address] [place] [address] 03850 PCP - General Internal Medicine 05/22/22 09/07/22 [facility], [address] [address] PCP - General Internal Medicine 09/08/22 11/08/22 Hawa Torres MD [address] [place] [address] 24644 PCP - General Internal Medicine 11/09/22 Taya Gonzales MD Specialist Cardiology 11/01/20 Chandan Breen PA Specialist Cardiology 11/01/20 02/20/24 Jessi Erwin DNP [address] [place] [address] 03481 Specialist Nurse Practitioner [facility] 02/21/24 documented as of this encounter
--- OUTSIDE RECORDS SUMMARY | 2024-11-11 10:54 | XMS_ITS | Encounter Summary ---
Author Organization [facility] Address [address] [place] [address] Care Team Providers Care Vice President Payer Name Role Phone Taya Gonzales MD Unavailable [phone] Chandan Breen Unavailable Rancho Matthews MD Primary Care Provider [phone] [facility], Pcp Primary Care Provider UnavailRancho Brock MD Primary Care Provider [phone] Hawa Torres MD Primary Care Provider Unavaila Hawa Maddox MD Primary Care Provider Unavaila ble [facility], Pcp Primary Care Provider UnavailHawa Barron MD Primary Care Provider Unavaila ble [facility], Pcp Primary Care Provider UnavailHawa Barron MD Primary Care Provider Unavaila ble Melonie Sorensen DO Primary Care Pro vider Unavailable [facility], Pcp Primary Care Provider UnavailHawa Barron MD Primary Care Provider Unavaila ble Jessi Erwin [facility] Unavailable [phone] Reason for Visit * Reason Onset Date Comments medication problems 01/24/2021 Encounter Details Date Type Department Care Team Description 01/24/2021 Telephone Adult Medicine [address] [address] Rancho Matthews MD [address] [place] [address] medication problems Social History Tobacco Use Types [...] encounter Miscellaneous Notes * Telephone Encounter - Karissa Murcia MD - 01/24/2021 5:07 PM EDT Rx sent. * Telephone Encounter - Ghislaine Gusman - 01/24/2021 4:14 PM EDT Who is calling? A pharmacist: Pharmacy: [facility] Pharmacy Name of the medication Blood Gluc Sensor (FREESTYLE SERENA SENSOR SYSTEM) Mis What is the specific problem or interaction? Pharmacy received script for serena 2 sensor which isincorrect. It needs to be for serena 14 day sensor . Please resend. If the patient is having a problem with taking the med - how long has the problem been going on? N/A documented in this encounter Plan of Treatment Not on file documented as of this encounter Visit Diagnoses Not on filedocumented in this encounter Care Teams Vice President Payer Relationship Specialty Start Date End Date Rancho Matthews MD [address] [place] [address] PCP - General Internal Medicine 12/20/20 03/22/21 [facility], Pcp [address] [place] [address]334 PCP - General Internal Medicine 03/23/21 04/11/21 Rancho Matthews MD [address] [place] [address] PCP - General Internal Medicine 04/12/21 04/12/21 Hawa Torres MD [address] [place] [address]123 PCP - General Internal Medicine 04/13/21 06/05/21 Hawa Torres MD [address] [place] [address] 04184 PCP - General Internal Medicine 06/06/21 08/07/21 [facility], Pcp [address] [place] [address]107 PCP - General Internal Medicine 08/08/21 10/27/21 Hawa Torres MD [address] [place] [address]403 PCP - General Internal Medicine 10/28/21 04/11/22 [facility], Pcp [address] [place] [address] 24996 PCP - General Internal Medicine 04/12/22 05/01/22 Hawa Torres MD [address] [place] [address] 96167 PCP - General Internal Medicine 05/02/22 05/21/22 Melonie Sorensen, DO [address] [place] [address]657 PCP - General Internal Medicine 05/22/22 09/07/22 [facility], Pcp [address] [place] [address] 28826 PCP - General Internal Medicine 09/08/22 11/08/22 Hawa Torres MD [address] [place] [address] 49567 PCP - General Internal Medicine 11/09/22 Taya Gonzales MD Specialist Cardiology 11/01/20 Chandan Breen PA Specialist Cardiology 11/01/20 02/20/24 Jessi Erwin DNP [address] [place] [address] Specialist Nurse Practitioner Family 02/21/24 documented as of this encounter
--- OUTSIDE RECORDS SUMMARY | 2024-11-11 10:54 | XMS_ITS | Encounter Summary ---
Author Organization [facility] Address [address] [place] [address] Care Team Providers Care Middle School Teacher Name Role Phone Taya Gonzales MD Unavailable [phone] Chandan Breen Unavailable + Rancho Matthews MD Primary Care Provider [phone] [facility], Pcp Primary Care Provider UnavailRancho Brock MD Primary Care Provider [phone] Hawa Torres MD Primary Care Provider Unavaila Hawa Maddox MD Primary Care Provider Unavaila ble [facility], Pcp Primary Care Provider UnavailHawa Barron MD Primary Care Provider Unavaila ble [facility], Pcp Primary Care Provider UnavailHawa Barron MD Primary Care Provider Unavaila ble Melonie Sorensen DO Primary Care Pro vider Unavailable [facility], Pcp Primary Care Provider UnavailHawa Barron MD Primary Care Provider Unavaila ble Jessi Erwin [facility] Unavailable [phone] Reason for Visit * Reason Onset Date Comments other 12/27/2020 return call Encounter Details Date Type Department Care Team Description 12/27/2020 Telephone Cardio PVC POC [phone] [facility] [address] [place] [address] Danielle Almanza PA-C [address] [place] [address] [phone] other (return call ) Social History Tobacco Use Types Packs/Day [...] * Telephone Encounter - FLORY Edward - 12/28/2020 1:01 PM EDT Spoke with the patient's daughter on the telephone, patient's daughter states that the patient was started on letrozole as part of her cancer treatment, they noted when she started this medication that she developed only left lower extremity swelling. The medication was stopped and edema resolved, however this was restarted a couple days ago and it seems to once again be recurring. The daughter states that the patient is not exhibiting any other symptoms of hypervolemia that she has experiencedin the past such as dyspnea on exertion, orthopnea, or PND. She does admit that her mother feels some fatigue but she believes it is from the letrozole. At this time she feels her mother is doing okay from a cardiac standpoint. She will continue to monitor her, and she knows to give her extra furosemide if needed. If she does indeed give her extra furosemide, she will call to let us know. I advised her that we will continue to monitor her device from our office, and she is more than welcome to call us if any other cardiac issues should arise. * Telephone Encounter - Janea Abarca - 12/27/2020 2:18 PM EDT 12/27/2020 Madelin Called back / Please call her back Again / she can be reached at [phone] ADARSH * Telephone Encounter - Leslee Muñoz C.M.A. - 12/27/2020 1:29 PM EDT I called patient and she was at work she will call me back when she can talk. * Telephone Encounter - Taya Gonzales MD - 12/27/2020 12:38 PM EDT Leslee, would you be able to call and ask how she's doing? Like what are her weights doing after thehospital, is she more short of breath or swollen. * Telephone Encounter - Danielle Almanza PA-C - 12/27/2020 11:57 AM EDT Remote BI V ICD cor vu low - possible HF noted last month as well defer further mgmt to you documented in this encounter Plan of Treatment Not on file documented as of this encounter Visit Diagnoses Not on filedocumented in this encounter Care Teams Middle School Teacher Relationship Specialty Start Date End Date Rancho Matthews MD [address] [place] [address] PCP - General Internal Medicine 12/20/20 03/22/21 [facility], Pcp [address] [place] [address] PCP - General Internal Medicine 03/23/21 04/11/21 Rancho Matthews MD [address] [place] [address] PCP - General Internal Medicine 04/12/21 04/12/21 Hawa Torres MD [address] [place] [address], [place] [address] PCP - General Internal Medicine 04/13/21 06/05/21 Hawa Torres MD [address] [place] [address], [place] [address] PCP - General Internal Medicine 06/06/21 08/07/21 [facility], Pcp [address] [place] [address], [place] [address] PCP - General Internal Medicine 08/08/21 10/27/21 Hawa Torres MD [address] [place] [address], [place] [address] PCP - General Internal Medicine 10/28/21 04/11/22 [facility], Pcp [address] [place] [address], [place] [address] PCP - General Internal Medicine 04/12/22 05/01/22 Melissa, Hawa Pompa MD [address] [place] [address], [place] [address] PCP - General Internal Medicine 05/02/22 05/21/22 Melonie Sorensen, DO [address] [place] [address], [place] [address] PCP - General Internal Medicine 05/22/22 09/07/22 [facility], Pcp [address] [place] [address], [place] [address] PCP - General Internal Medicine 09/08/22 11/08/22 Hawa Torres MD [address] [place] [address], [place] [address] PCP - General Internal Medicine 11/09/22 Taya Gonzales MD Specialist Cardiology 11/01/20 Chandan Breen PA Specialist Cardiology 11/01/20 02/20/24 Jessi Erwin DNP [address] [place] [address], [place] [address] Specialist Nurse Practitioner Family 02/21/24 documented as of this encounter
--- OUTSIDE RECORDS SUMMARY | 2024-11-11 10:54 | XMS_ITS | Encounter Summary ---
Author Organization [facility] Address [address] [place] [address] Care Team Providers Care Ice Cream Truck Driver Name Role Phone Hawa Torres MD Primary Care Provider Unavaila Taya Covington MD Unavailable [phone] Chandan Breen Unavailable Rancho Matthews MD Primary Care Provider + [facility] Primary Care Provider UnavailRancho Brock MD Primary Care Provider [phone] Hawa Torres MD Primary Care Provider Unavaila Hawa Maddox MD Primary Care Provider Unavaila elpidio [facility], Pcp Primary Care Provider Hawa Zavala MD Primary Care Provider Unavaila ble [facility], Pcp Primary Care Provider Hawa Zavala MD Primary Care Provider Unavaila Melonie Rojas DO Primary Care Pro vider Unavailable [facility], Pcp Primary Care Provider Hawa Zavala MD Primary Care Provider Unavaila Jessi Cagle [facility] Unavailable + [phone] Encounter Details Date Type Department Care Team Description 12/24/2019 Pt. Non Urgent Medical Question Medicine/Pediatrics - [address] [phone] Hawa Torres MD Social History Tobacco Use [...] 5[facility] [address] Thank you, Stay Healthy! documented in this encounter Plan of Treatment Not on file documented as of this encounter Visit Diagnoses Not on filedocumented in this encounter Care Teams Ice Cream Truck Driver Relationship Specialty Start Date End Date Hawa Torres MD PCP - General Internal Medicine 09/09/15 12/19/20 Rancho Matthews MD [address] [place] [address] PCP - General Internal Medicine 12/20/20 03/22/[address] [address] PCP - General Internal Medicine 03/23/21 04/11/21 Rancho Matthews MD [address] [place] [address] PCP - General Internal Medicine 04/12/21 04/12/21 Hawa Torres MD [address] [place] [address] PCP - General Internal Medicine 04/13/21 06/05/21 Hawa Torres MD [address] [place] [address] PCP - General Internal Medicine 06/06/21 08/07/21 [facility], Pcp [address] [place] [address] PCP - General Internal Medicine 08/08/21 10/27/21 Hawa Torres MD PCP - General Internal Medicine 10/28/21 04/11/22 [facility], Pcp [address] [place] [address] PCP - General Internal Medicine 04/12/22 05/01/22 Hawa Torres MD [address] [place] [address] PCP - General Internal Medicine 05/02/22 05/21/22 Melonie Sorensen DO [address] [place] [address] PCP - General Internal Medicine 05/22/22 09/07/22 [facility], Pcp [address] [place] [address] PCP - General Internal Medicine 09/08/22 11/08/22 Hawa Torres MD [address] [place] [address] PCP - General Internal Medicine 11/09/22 Taya Gonzales MD Specialist Cardiology 11/01/20 Chandan Breen PA Specialist Cardiology 11/01/20 02/20/24 Jessi Erwin DNP [address] [place] [address] Specialist Nurse Practitioner Family 02/21/24 documented as of this encounter
--- OUTSIDE RECORDS SUMMARY | 2024-11-11 10:54 | XMS_ITS | Encounter Summary ---
Author Organization [facility] Address [address] [place] [address] Care Team Providers Care Shade Hanger Name Role Phone Taya Gonzales MD Unavailable [phone] Chandan Breen Unavailable + Rancho Matthews MD Primary Care Provider + [facility], Pcp Primary Care Provider UnavailRancho Brock MD Primary Care Provider [phone] Hawa Torres MD Primary Care Provider Unavaila Hawa Maddox MD Primary Care Provider Unavaila ble [facility], Pcp Primary Care Provider UnavailHawa Barron MD Primary Care Provider Unavaila ble [facility], Pcp Primary Care Provider UnavailHawa Barron MD Primary Care Provider Unavaila ble Melonie Sorensen DO Primary Care Pro vider Unavailable [facility], Pcp Primary Care Provider UnavailHawa Barron MD Primary Care Provider Unavaila ble Jessi Erwin [facility] Unavailable [phone] Encounter Details Date Type Department Care Team Description 02/25/2021 Hospital Medical Records [address] [place] [address] Social History Tobacco Use Types Packs/Day Years [...] on filedocumented in this encounter Care Teams Shade Hanger Relationship Specialty Start Date End Date Rancho Matthews MD [address] [place] [address] PCP - General Internal Medicine 12/20/20 03/22/21 [facility], [address] [address] PCP - General Internal Medicine 03/23/21 04/11/21 Rancho Matthews MD [address] [place] [address] PCP - General Internal Medicine 04/12/21 04/12/21 Hawa Torres MD [address] [place] [address]132 PCP - General Internal Medicine 04/13/21 06/05/21 Hawa Torres MD [address] [place] [address]23 PCP - General Internal Medicine 06/06/21 08/07/21 [facility], Pcp [address] [place] [address] 32708 PCP - General Internal Medicine 08/08/21 10/27/21 Hawa Torres MD [address] [place] [address]67 PCP - General Internal Medicine 10/28/21 04/11/22 [facility], Pcp [address] [place] [address] 30920 PCP - General Internal Medicine 04/12/22 05/01/22 Hawa Torres MD [address] [place] [address]655 PCP - General Internal Medicine 05/02/22 05/21/22 Melonie Sorensen, DO [address] [place] [address]283 PCP - General Internal Medicine 05/22/22 09/07/22 [facility], Pcp [address] [place] [address] 40919 PCP - General Internal Medicine 09/08/22 11/08/22 Hawa Torres MD [address] [place] [address] 66867 PCP - General Internal Medicine 11/09/22 Taya Gonzales MD Specialist Cardiology 11/01/20 Chandan Breen PA Specialist Cardiology 11/01/20 02/20/24 Jessi Erwin DNP [address] [place] [address], [place] [address] Specialist Nurse Practitioner [facility] 02/21/24 documented as of this encounter
--- OUTSIDE RECORDS SUMMARY | 2024-11-11 10:54 | XMS_ITS | Encounter Summary ---
Author Organization [facility] Address [address] [place] [address] Care Team Providers Care Picking Tech Name Role Phone Hawa Torres MD Primary Care Provider Unavaila Taya Covington MD Unavailable [phone] Chandan Breen Unavailable + Rancho Matthews MD Primary Care Provider + [facility], Pcp Primary Care Provider UnavailRancho Brock MD Primary Care Provider [phone] Hawa Torres MD Primary Care Provider Unavaila Hawa Maddox MD Primary Care Provider Unavaila elpidio [facility], Pcp Primary Care Provider UnavailHawa Barron MD Primary Care Provider Unavaila ble [facility], Pcp Primary Care Provider Hawa Zavala MD Primary Care Provider Unavaila ble Melonie Sorensen DO Primary Care Pro vider Unavailable [facility], Pcp Primary Care Provider UnavailHawa Barron MD Primary Care Provider Unavaila Jessi Cagle [facility] Unavailable + [phone] Encounter Details Date Type Department Care Team Description 12/10/2018 Orders Only Medicine/Pediatrics - [address] [address] Danuta Jiménez PA-C Anemia, chronic disease (Primary [...] - 900 pg/mL 04/18/2019 2:16 PM EDT [facility] 04/18/2019 10:0 7 AM EDT 04/18/2019 10:07 AM EDT Danuta Jiménez PA-C [facility] documented in this encounter Visit Diagnoses Diagnosis Anemia, chronic disease- Primary Anemia of other chronic disease documented in this encounter Care Teams Picking Tech Relationship Specialty Start Date End Date Hawa Torres MD PCP - General Internal Medicine 09/09/15 12/19/20 Rancho Matthews MD [address] [place] [address] PCP - General Internal Medicine 12/20/20 03/22/21 [facility], [address] [address] PCP - General Internal Medicine 03/23/21 04/11/21 Rancho Matthews MD [address] [place] [address]38 PCP - General Internal Medicine 04/12/21 04/12/21 Hawa Torres MD [address] [place] [address] 71991 PCP - General Internal Medicine 04/13/21 06/05/21 Hawa Torres MD [address] [place] [address] PCP - General Internal Medicine 06/06/21 08/07/21 [facility], Pcp [address] [place] [address]1993 PCP - General Internal Medicine 08/08/21 10/27/21 Hawa Torres MD PCP - General Internal Medicine 10/28/21 04/11/22 [facility], Pcp [address] [place] [address]4732 PCP - General Internal Medicine 04/12/22 05/01/22 Hawa Torres MD [address] [place] [address] PCP - General Internal Medicine 05/02/22 05/21/22 Melonie Sorensen, DO [address] [place] [address] PCP - General Internal Medicine 05/22/22 09/07/22 [facility], Pcp [address] [place] [address] PCP - General Internal Medicine 09/08/22 11/08/22 Hawa Torres MD [address] [place] [address] PCP - General Internal Medicine 11/09/22 Taya Gonzales MD Specialist Cardiology 11/01/20 Chandan Breen PA Specialist Cardiology 11/01/20 02/20/24 Jessi Erwin DNP [address] [place] [address] Specialist Nurse Practitioner [facility] 02/21/24 documented as of this encounter
--- OUTSIDE RECORDS SUMMARY | 2024-11-11 10:54 | XMS_ITS | Encounter Summary ---
Author Organization [facility] Address [address] [place] [address] Care Team Providers Care Furrier Designer Name Role Phone Taya Gonzales MD Unavailable [phone] Chandan Breen Unavailable + Rancho Matthews MD Primary Care Provider [phone], Pcp Primary Care Provider UnavailRancho Brock MD Primary Care Provider [phone] Hawa Torres MD Primary Care Provider Unavaila [...] Provider Unavaila ble Jessi Erwin [facility] Unavailable [phone] Encounter Details Date Type Department Care Team Description 03/01/2021 Diet Aide Report Medical Records [address] [place] [address] [place] Social History Tobacco Use Types Packs/Day [...] on filedocumented in this encounter Care Teams Furrier Designer Relationship Specialty Start Date End Date Rancho Matthews MD [address] [place] [address] PCP - General Internal Medicine 12/20/20 03/22/21 [facility] Pcp [address] [place] [address] PCP - General Internal Medicine 03/23/21 04/11/21 Rancho Matthews MD [address] [place] [address] PCP - General Internal Medicine 04/12/21 04/12/21 Haaw Torres MD [address] [place] [address]1209 PCP - General Internal Medicine 04/13/21 06/05/21 Hawa Torres MD [address] [place] [address] PCP - General Internal Medicine 06/06/21 08/07/21 [facility], Pcp [address] [place] [address] PCP - General Internal Medicine 08/08/21 10/27/21 Hawa Torres MD [address] [place] [address] 53728 PCP - General Internal Medicine 10/28/21 04/11/22 [facility], Pcp [address] [place] [address] 06671 PCP - General Internal Medicine 04/12/22 05/01/22 Hawa Torres MD [address] [place] [address] 38846 PCP - General Internal Medicine 05/02/22 05/21/22 Melonie Sorensen DO [address] [place] [address] 79772 PCP - General Internal Medicine 05/22/22 09/07/22 [facility], [address] [address] PCP - General Internal Medicine 09/08/22 11/08/22 Hawa Torres MD [address] [place] [address]509 PCP - General Internal Medicine 11/09/22 Taya Gonzales MD Specialist Cardiology 11/01/20 Chandan Breen PA Specialist Cardiology 11/01/20 02/20/24 Jessi Erwin DNP [address] [place] [address] Specialist Nurse Practitioner [facility] 02/21/24 documented as of this encounter
--- OUTSIDE RECORDS SUMMARY | 2024-11-11 10:54 | XMS_ITS | Encounter Summary ---
Author Organization [facility] Address [address] [place] [address] Care Team Providers Care Software Applications Engineer Name Role Phone Hawa Torres MD Primary Care Provider Unavaila Taya Covington MD Unavailable [phone] Chandan Breen Unavailable Rancho Matthews MD Primary Care Provider +[phone] [facility] Primary Care Provider UnavailRancho Brock [...] Provider Unavaila Jessi Cagle [facility] Unavailable + [phone] Reason for Visit * Reason Onset Date Comments medication problems 07/15/2019 Encounter Details Date Type Department Care Team Description 07/15/2019 Telephone Medicine/Pediatrics - [address] [phone] Hawa Torres MD medication problems [...] on filedocumented in this encounter Care Teams Software Applications Engineer Relationship Specialty Start Date End Date Hawa Torres MD PCP - General Internal Medicine 09/09/15 12/19/20 Rancho Matthews MD [address] [place] [address] PCP - General Internal Medicine 12/20/20 03/22/21 [facility] [address] [address] PCP - General Internal Medicine 03/23/21 04/11/21 Rancho Matthews MD [address] [place] [address] PCP - General Internal Medicine 04/12/21 04/12/21 Hawa Torres MD [address] [place] [address] 67368 PCP - General Internal Medicine 04/13/21 06/05/21 Hawa Torres MD [address] [place] [address] PCP - General Internal Medicine 06/06/21 08/07/21 [facility], Pcp [address] [place] [address]7743 PCP - General Internal Medicine 08/08/21 10/27/21 Hawa Torres MD PCP - General Internal Medicine 10/28/21 04/11/22 [facility], Pcp [address] [place] [address] PCP - General Internal Medicine 04/12/22 05/01/22 Hawa Torres MD [address] [place] [address] 42747 PCP - General Internal Medicine 05/02/22 05/21/22 Melonie Sorensen, DO [address] [place] [address] 52096 PCP - General Internal Medicine 05/22/22 09/07/22 [facility], Pcp [address] [place] [address] 41887 PCP - General Internal Medicine 09/08/22 11/08/22 Hawa Torres MD [address] [place] [address]1977 PCP - General Internal Medicine 11/09/22 Taya Gonzales MD Specialist Cardiology 11/01/20 Chandan Breen PA Specialist Cardiology 11/01/20 02/20/24 Jessi Erwin DNP [address] [place] [address] Specialist Nurse Practitioner [facility] 02/21/24 documented as of this encounter
--- OUTSIDE RECORDS SUMMARY | 2024-11-11 10:54 | XMS_ITS | Encounter Summary ---
Author Organization [facility] Address [address] [place] [address] Care Team Providers Care Executive Vice President And Chief Financial Officer Name Role Phone Taya Gonzales MD Unavailable + Chandan Breen Unavailable + Rancho Matthews MD Primary Care Provider + [facility], Pcp Primary Care [...] Primary Care Pro vider Unavailable [facility], Pcp Primary Care Provider UnavailHawa Barron MD Primary Care Provider Unavaila ble Jessi Erwin [facility] Unavailable [phone] Encounter Details Date Type Department Care Team Description 01/17/2021 Refill Medicine/Pediatrics - [address] [phone] Karissa Murcia MD Social History Tobacco Use Types Packs/Day [...] on filedocumented in this encounter Care Teams Executive Vice President And Chief Financial Officer Relationship Specialty Start Date End Date Rancho Matthews MD [address] [place] [address] PCP - General Internal Medicine 12/20/20 03/22/21 [facility], Pcp [address] [place] [id number] PCP - General Internal Medicine 03/23/21 04/11/21 Rancho Matthews MD [address] [place] [address]65 PCP - General Internal Medicine 04/12/21 04/12/21 Hawa Torres MD [address] [place] [phone] PCP - General Internal Medicine 04/13/21 06/05/21 Hawa Torres MD [address] [place] [address] PCP - General Internal Medicine 06/06/21 08/07/21 [facility], Pcp [address] [place] [address] [place] [address] PCP - General Internal Medicine 08/08/21 10/27/21 Hawa Torres MD [address] [place] [address] PCP - General Internal Medicine 10/28/21 04/11/22 [facility], Pcp [address] [place] [id number] PCP - General Internal Medicine 04/12/22 05/01/22 Hawa Torres MD [address] [place] [address] 43671 PCP - General Internal Medicine 05/02/22 05/21/22 Melonie Sorensen DO [address] [place] [address] PCP - General Internal Medicine 05/22/22 09/07/22 [facility], Pcp [address] [place] [address] 14952 PCP - General Internal Medicine 09/08/22 11/08/22 Hawa Torres MD [address] [place] [address]26 PCP - General Internal Medicine 11/09/22 Taya Gonzales MD Specialist Cardiology 11/01/20 Chandan Breen PA Specialist Cardiology 11/01/20 02/20/24 Jessi Erwin, KITTY [address] [place] [phone] Specialist Nurse Practitioner [facility] 02/21/24 documented as of this encounter
--- OUTSIDE RECORDS SUMMARY | 2024-11-11 10:55 | XMS_ITS | Clinical Summary ---
Author Organization [address] [place] [address] [place] [phone] Phone Care Team Providers Care Crew Director Name Role Phone Unavailable Primary Care [...] MEAL PER SLIDING SCALE: <120: 0 units, 917453: 3 units, 151-199: 4 UNITS, 200-249: 5 [...] hypotension - Most recent echocardiogram 07/2022 at [facility] showed LVEF 10- 15%, global hypokinesis with wall motion abnormalities without hemodynamically significant valve disease - [employer] CORN GRINDER-D generator change in 12/2023. There had been [...] Noted Date Diagnosed Date Resolved Date Old ID (myocardial infarction) 11/28/2023 10/14/2024 Overview (11/28/2023): March 2011 ID at 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, with long-term current use of insulin (CMS/HCC) (Primary Dx); Hypothyroidism, unspecified type 10/22/2024 Telephone [facility] Cardiology [facility] [address] [place] [address] Jessi Erwin NP faxed office note 10/14/2024 10:25 PM EST Ancillary Procedure [facility] [address] [place] [address] 10/14/2024 12:40 PM EST Consult [facility] Cardiology [facility] [address] [place] [address] Jessi Erwin NP Chronic systolic dysfunction of left ventricle (Primary Dx); Primary hypertension; 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; Systolic left-sided congestive heart failure, NYHA class 2 (CMS/HCC); Pure hypercholesterolemia; Preop cardiovascular exam 09/30/2024 3:15 PM EST Office Visit [facility] Hematology Oncology [address] [place] [phone] Cullen Gibson MD 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 breast in female, estrogen receptor positive (CMS/HCC) (Primary Dx) 09/15/2024 Telephone [facility] Cardiology [facility] [address] [place] [address] Ramya Headley NP Arm Swelling 09/11/2024 11:25 AM EST Ancillary Procedure [facility] Cardiology [facility] [address] [place] [address] 09/09/2024 Telephone [facility] Cardiology [facility] [address] [place] [address] Nikhil Sorenson MD 08/14/2024 5:30 PM EST Ancillary Procedure [facility] [address] [facility] [address] [place] [address] from Last 3 Months Immunizations [...] Description 02/04/2025 3:30 PM EDT Ancillary Procedure [facility] - [facility] [address] [facility] [address] [place] [address] 02/19/2025 3:40 PM EDT Office Visit Endocrinology - [address] [phone] Lucille Clarke PA [address] [place], [place] 03/31/2025 3:15 PM EDT Office Visit [facility] Hematology Oncology [address] [place] [phone] Cullen Gibson MD [address] [place] [phone] 04/09/2025 3:40 PM EDT Appointment Radiology Department - [address] [address] 04/23/2025 10:50 AM EDT Office Visit [facility] Cardiology [facility] 154 [address] [facility] [address] [place] [phone] Taya Gonzales MD [address] [place] [address] Health Maintenance Due Date Last Done Comments Diabetes: Annual GFR (Glomerular Filtration Rate) 1940 Zoster Vaccines (1 of 2) 01/15/2013 11/20/2012 RSV Immunization Patients 60+ Years Old (1 - 1-dose 75+ series) 2017 Colorectal Cancer Screening: Colonoscopy 08/31/2022 Depression Screening 08/31/2022 Falls Risk Assessment 08/31/2022 Medicare Annual Wellness Visit 08/31/2022 Social Influencers of Health Screening 08/31/2022 Diabetes: Annual Urine Albumin-Creatinine Ratio (uACR) 09/03/2022 Hypertension/CHF/CAD Annual BMP Blood Test 09/03/2022 Diabetes: Blood Sugar Control Test (HGBA1C) 11/11/2022 05/11/2022 DTaP,Tdap,and Td Vaccines (2 - Td or Tdap) 11/20/2022 11/20/2012 Diabetes: Annual Retina Eye Exam 12/28/2022 12/28/2021 [...] this topic Medical Devices Implanted Type Area Salt Refiner Device Identifier Shelf Expiration Date Model / Serial / Lot Abbt-Stju [id number] Bruce Chacko() [id number] Implanted:12/23 (Quantity not on file) Cardiac CORN GRINDER-D ICD [facility] [id number] CINDYAfsaneh CHACKO() / [id number] / Procedures Procedure Name Priority Date/Time Associated [...] GEMUSE QTc 510 ms GEMUSE P Wave [place] 69 degrees GEMUSE R [place] -65 degrees GEMUSE T [place] 97 degrees GEMUSE ECG Interpretation Atrial sensed, [...] period is included. Date Time Interrogation Session [id number] CV DEVICE CHECK Type Interrogation Session Remote Scheduled CV DEVICE CHECK Implantable Pulse Generator Salt Refiner [employer]Mckay CV DEVICE CHECK Implantable Pulse Generator Type CORN GRINDER-D CV DEVICE CHECK Implantable Pulse Generator Model 3357-40Q Bruce Chacko(TM) CV DEVICE CHECK Implantable Pulse Generator Serial Number [id number] CV DEVICE CHECK Implantable Pulse Generator Implant Date 20240110 CV DEVICE CHECK Battery Remaining Percentage 83.00 CV DEVICE CHECK Battery Remaining Longevity 53.0 CV DEVICE CHECK Battery Voltage 3.010 CV D EVICE CHECK Battery SENIOR HEALTH PHYSICS TECHNICIAN Trigger 2.590 CV DEVICE CHECK Battery Status Middle of Service CV DEVICE CHECK Capacitor Charge Time 8.000 CV DEVICE CHECK Antione Statistic RA Percent Paced 49.00 CV DEVICE CHECK Antione Statistic RV Percent Paced 100.00 CV DEVICE CHECK CORN GRINDER Statistic CORN GRINDER Percent Paced 99.00 CV DEVICE CHECK Atrial Tachy Statistic AT/AF [place] Percent 0.00 CV DEVICE CHECK Lead Channel [...] CV DEVICE CHECK Ventricular chambers paced during CORN GRINDER pacing. BiV CV DEVICE CHECK Antione Setting Lower Rate Limit 60 CV DEVICE CHECK Antione Setting AT Mode Switch Rate 180 CV DEVICE CHECK Antione Setting Maximum Tracking Rate 110 CV DEVICE CHECK Antione Setting Maximum Sensor Rate 110 CV DEVICE CHECK Antione Setting PAV Delay 150 CV DEVICE CHECK Antione Setting JAGJIT Delay 130 CV DEVICE CHECK CORN GRINDER LV-RV Delay 40 CV D EVICE CHECK [...] PM EST Narrative 11/08/2020 3:13 PM EST [facility] Diagnostic Imaging Department [address] [place] [address] [id number] Patient: ??DANA NASH ?/Age/Sex: 1940 - 80 - F Unit#: ??[id number] ? Location/Status: ??SPDIMAM/REG CLI ? Mnemonic/Ordering Site: [...] probability of hip fracture of 3.1%. Code 19738 Dictating Physician: ??KYLIE GLASER MD Electronically Signed by: ??KYLIE GLASER MD Dic Date/Time: ??11/08/201511 Sign date/Time: ??11/08/20 151 Procedure Note Kylie Glaser MD - 09/12/2022 [facility] Diagnostic Imaging Department [address] [place] [address] [id number] Patient: CHARITYDANACLIFF Ravi./Age/Sex: 1940 - 80 - F Unit#: [id number] [facility] Ordering Physician: CULELN GIBSON MD Valorie Dexa Axial Skeleton - 11/08/204 HISTORY: The patient is a 80-year-old postmenopausal [...] density of the femurs bilaterally is 0.981 gm/bp9lyaij is 97% of that of young normals [...] probability of hip fracture of 3.1%. Code 90780 Dictating Physician: KYLIE GLASER MD Electronically Signed by: KYLIE GLASER MD Dic Date/Time: 11/08/201511 Sign date/Time: 11/08/201512 Cullen Gibson MD IMG BI PROCEDURES Final Res ult from Last 3 Months or Most Recently Relevant to Health Maintenance Insurance [employer] [place] [employer]
== END 2024-11-11 13:57 | disposition home or self-care (01) ==
PROVIDERS: PCP Internal Medicine; Visit Provider Internal Medicine
DX: J10.1 Influenza due to other identified influenza virus with other respiratory manifestations (principal)

== ENCOUNTER → 2024-11-11 10:02 | Outpatient (BNVA) | payer MEDICARE, MEDICAID, SELFPAY | PROVIDERS: PCP Internal Medicine; Visit Provider Internal Medicine | DX: J10.1 Influenza due to other identified influenza virus with other respiratory manifestations (principal); E11.22 Type 2 diabetes mellitus with diabetic chronic kidney disease; N18.6 End stage renal disease; I25.10 Atherosclerotic heart disease of native coronary artery without angina pectoris; I50.9 Heart failure, unspecified; Z99.2 Dependence on renal dialysis | CPT/HCPCS: 96127; 99212 ==

== ENCOUNTER 2024-12-05 14:57 | Outpatient (REF) | payer MEDICARE, MEDICAID, SELFPAY ==
--- OUTSIDE RECORDS SUMMARY | 2024-12-05 16:57 | XMS_ITS | Encounter Summary ---
Author Organization [facility] Address [address] [place] [address] Care Team Providers Care Hostess Cashier Name Role Phone Taya Gonzales MD Unavailable [phone] Chandan Breen Unavailable Community, Pcp Primary Care Provider UnavailRancho Brock MD Primary Care Provider [phone] Hawa Torres MD Primary Care Provider Unavaila Hawa Maddox MD Primary Care Provider Unavaila ble [facility], Pcp Primary Care Provider UnavailHawa Barron MD Primary Care Provider Unavaila ble [facility], Pcp Primary Care Provider UnavailHawa Barron MD Primary Care Provider Unavaila ble Melonie Sorensen DO Primary Care Pro vider Unavailable [facility], Pcp Primary Care Provider UnavailHawa Barron MD Primary Care Provider Unavaila ble Jessi Erwin [facility] Unavailable [phone] Reason for Visit * Reason Onset Date Comments TEST RESULTS 04/06/2021 Pt submitted Pul monary response to CT scan Encounter Details Date Type Department Care Team Description 04/06/2021 Pt. Non Urgent Medical Question Cardio PVC POC 154 [address] [facility] [address] [place] [address] Taya Gonzales MD [address] [place] [address] [id number] Social History Tobacco Use Types Packs/Day Years [...] on filedocumented in this encounter Care Teams Hostess Cashier Relationship Specialty Start Date End Date Community, Pcp PCP - General Internal Medicine 03/23/21 04/11/21 Rancho Matthews MD [address] [place] [address] 02480 PCP - General Internal Medicine 04/12/21 04/12/21 Hawa Torres MD [address] [place] [address] 56698 PCP - General Internal Medicine 04/13/21 06/05/21 Hawa Torres MD [address] [place] [address] 30872 PCP - General Internal Medicine 06/06/21 08/07/21 [facility], Pcp PCP - General Internal Medicine 08/08/21 10/27/21 Hawa Torres MD [address] [place] [address] 60112 PCP - General Internal Medicine 10/28/21 04/11/22 [facility], Pcp PCP - General Internal Medicine 04/12/22 05/01/22 Hawa Torres MD [address] [place] [address] 53493 PCP - General Internal Medicine 05/02/22 05/21/22 Melonie Sorensen DO [address] [place] [address] 54965 PCP - General Internal Medicine 05/22/22 09/07/22 [facility], Pcp PCP - General Internal Medicine 09/08/22 11/08/22 Hawa Torres MD [address] [place] [address] 32324 PCP - General Internal Medicine 11/09/22 Taya Gonzales MD Specialist Cardiology 11/01/20 Chandan Breen PA Specialist Cardiology 11/01/20 02/20/24 Jessi Erwin DNP [address] [place] [address]15 Specialist Nurse Practitioner Family 02/21/24 documented as of this encounter
--- OUTSIDE RECORDS SUMMARY | 2024-12-05 16:57 | XMS_ITS | Encounter Summary ---
Author Organization [facility] Address [address] [place] [address] Care Team Providers Care Payroll Benefits Clerk Name Role Phone Taya Gonzales MD Unavailable [phone] Chandan Breen Unavailable Hawa Torres MD Primary Care Provider Unavailamaya magallanes [facility], Pcp Primary Care Provider Hawa Zavala MD Primary Care Provider Unavaila Melonie Rojas DO Primary Care Pro vider Unavailable [facility], Pcp Primary Care Provider Hawa Zavala MD Primary Care Provider Unavaila Jessi Cagle DNP Unavailable [phone] Encounter Details Date Type Department Care Team Description 02/10/2022 [facility] Medical Records [address] [place] [address] Social History Tobacco Use Types Packs/Day Years [...] Associated Diagnosis Comments OUTSIDE PLAIN FILM Routine 02/10/2022 documented in this encounter Results * OUTSIDE PLAIN FILM (02/10/2022) Provider Abstract RADIOLOGY documented in this encounter Visit Diagnoses Not on filedocumented in this encounter Care Teams Payroll Benefits Clerk Relationship Specialty Start Date End Date Hawa Torres MD PCP - General Internal Medicine 10/28/21 04/11/22 [facility], Pcp PCP - General Internal Medicine 04/12/22 05/01/22 Hawa Torres MD PCP - General Internal Medicine 05/02/22 05/21/22 Melonie Sorensen DO PCP - General Internal Medicine 05/22/22 09/07/22 [facility], Pcp PCP - General Internal Medicine 09/08/22 11/08/22 Hawa Torres MD PCP - General Internal Medicine 11/09/22 Taya Gonzales MD Specialist Cardiology 11/01/20 Chandan Breen PA Specialist Cardiology 11/01/20 02/20/24 Jessi Erwin DNP Specialist Nurse Practitioner Family 02/21/24 documented as of this encounter
--- OUTSIDE RECORDS SUMMARY | 2024-12-05 16:57 | XMS_ITS | Encounter Summary ---
Author Organization [facility] Address [address] [place] [address] Care Team Providers Care Associate Producer Name Role Phone Taya Gonzales MD Unavailable [phone] Chandan Breen Unavailable Hawa Torres MD Primary Care Provider Unavaila ble [facility], Pcp Primary Care Provider UnavailHawa Barron MD Primary Care Provider Unavaila ble [facility], Pcp Primary Care Provider UnavailHawa Barron MD Primary Care Provider Unavaila ble Melonie Sorensen DO Primary Care Pro vider Unavailable [facility], Pcp Primary Care Provider Hawa Zavala MD Primary Care Provider Unavaila ble Jessi Erwin [facility] Unavailable Reason for Visit * Reason Onset Date Comments refill request 06/07/2021 Encounter Details Date Type Department Care Team Description 06/07/2021 Telephone Adult Medicine [address] [address] Hawa Torres MD refill request Social History Tobacco Use Types [...] encounter Miscellaneous Notes * Telephone Encounter - Mia Osborn PA-C - 06/08/2021 1:11 PM EDT New Rx sent. * Telephone Encounter - Stuart Franks C.M.A. - 06/08/2021 8:54 AM EDT Pt is stating that they test sugars 4x's daily with the Bd clarisse. The script says use one daily withinsulin. Pt also on sliding scale. The lancets are for testing 3x's daily. Pt and pharmacy looking for clarification. JANUARY was 05/12/21 Lab Results Component Value Date HGBA1C 8.9 04/21/2021 MALBUR 1210.0 09/02/2020 MALBCR 1375.0 09/02/2020 CHOL 138 06/25/2020 LDL 54 06/25/2020 HDL 55 06/25/2020 TRIG 145 06/25/2020 GLU 231 04/21/2021 CREAT 1.69 01/21/2021 * Telephone Encounter - Susan Tinsley - 06/07/2021 1:27 PM EDT Who is calling? Pharmacy fax Name of the medication Bd clarisse needles What is the specific problem or interaction? Patient uses 4x daily Written for 1x daily If the patient is having a problem with taking the med - how long has the problem been going on? documented in this encounter Plan of Treatment Not on file documented as of this encounter Visit Diagnoses Diagnosis Uncontrolled type 2 diabetes mellitus with hypoglycemia without coma (HCC) documented in this encounter Care Teams Associate Producer Relationship Specialty Start Date End Date Hawa Torres MD PCP - General Internal Medicine 06/06/21 08/07/21 [facility], Pcp PCP - General Internal Medicine 08/08/21 10/27/21 Hawa Torres MD PCP - General Internal Medicine 10/28/21 04/11/22 [facility], Pcp PCP - General Internal Medicine 04/12/22 05/01/22 Hawa Torres MD PCP - General Internal Medicine 05/02/22 05/21/22 Melonie Sorensen DO PCP - General Internal Medicine 05/22/22 09/07/22 [facility], Pcp PCP - General Internal Medicine 09/08/22 11/08/22 Hawa Torres MD PCP - General Internal Medicine 11/09/22 Taya Gonzales MD Specialist Cardiology 11/01/20 Chandan Breen PA Specialist Cardiology 11/01/20 02/20/24 Jessi Erwin DNP Specialist Nurse Practitioner [facility] 02/21/24 documented as of this encounter
--- OUTSIDE RECORDS SUMMARY | 2024-12-05 16:57 | XMS_ITS | Encounter Summary ---
Author Organization [facility] Address [address] [place] [address] Care Team Providers Care Fibre Technologist Name Role Phone Hawa Torres MD Primary Care Provider Unavaila Taya Covington MD Unavailable [phone] Chandan Breen Unavailable Rancho Matthews MD Primary Care Provider [phone] [facility], Pcp Primary Care Provider UnavailRancho Brock MD Primary Care Provider [phone] Hawa Torres MD Primary Care Provider Unavaila Hawa Maddox MD Primary Care Provider Unavaila ble [facility], Pcp Primary Care Provider UnavailHawa Barron MD Primary Care Provider Unavaila ble [facility], Pcp Primary Care Provider Hawa Zavala MD Primary Care Provider Unavaila ble Melonie Sorensen DO Primary Care Pro vider Unavailable [facility], Pcp Primary Care Provider UnavailHawa Barron MD Primary Care Provider Unavaila Jessi Cagle [facility] Unavailable [phone] Encounter Details Date Type Department Care Team Description 08/18/2020 Pt. Non Urgent Medic al Question Dermatology - [address] [phone] Leda Lucas PA-C Social History [...] on filedocumented in this encounter Care Teams Fibre Technologist Relationship Specialty Start Date End Date Hawa Torres MD PCP - General Internal Medicine 09/09/15 12/19/20 Rancho Matthews MD [address] [place] [address] PCP - General Internal Medicine 12/20/20 03/22/21 [facility], Pcp [address] [place], [place] [phone] PCP - General Internal Medicine 03/23/21 04/11/21 Rancho Matthews MD [address] [place] [address] PCP - General Internal Medicine 04/12/21 04/12/21 Hawa Torres MD [address] [place] [address] PCP - General Internal Medicine 04/13/21 06/05/21 Hawa Torres MD [address] [place] [address]2812 PCP - General Internal Medicine 06/06/21 08/07/21 [facility], Pcp [address] [place] [address] 68090 PCP - General Internal Medicine 08/08/21 10/27/21 Hawa Torres MD PCP - General Internal Medicine 10/28/21 04/11/22 [facility], Pcp [address] [place] [address]34 PCP - General Internal Medicine 04/12/22 05/01/22 Hawa Torres MD [address] [place] [address] 62176 PCP - General Internal Medicine 05/02/22 05/21/22 Melonie Sorensen DO [address] [place] [address] 40[address] PCP - General Internal Medicine 05/22/22 09/07/22 [facility], Pcp [address] [place] [address] PCP - General Internal Medicine 09/08/22 11/08/22 Hawa Torres MD [address] [place] [address] 89482 PCP - General Internal Medicine 11/09/22 Taya Gonzales MD Specialist Cardiology 11/01/20 Chandan Breen PA Specialist Cardiology 11/01/20 02/20/24 Jessi Erwin DNP [address] [place] [address] Specialist Nurse Practitioner Family 02/21/24 documented as of this encounter
--- OUTSIDE RECORDS SUMMARY | 2024-12-05 16:57 | XMS_ITS | Encounter Summary ---
Author Organization [facility] Address [address] [place] [address] Care Team Providers Care Platen Drier Operator Name Role Phone Salomón Lou MD Primary Care Provider Unavail able Hawa Torres MD Primary Care Provider Unavaila Taya Covington MD Unavailable [phone] Chandan Breen Unavailable Rancho Matthews MD Primary Care Provider [facility], [facility] Primary Care Provider UnavailRancho Brock MD Primary Care Provider Hawa Torres MD Primary Care Provider Unavaila Hawa Maddox MD Primary Care Provider Unavaila ble [facility], Pcp Primary Care Provider UnavailHawa Barron MD Primary Care Provider Unavaila elpidio [facility], Pcp Primary Care Provider Hawa Zavala MD Primary Care Provider Unavaila Melonie Rojas DO Primary Care Pro vider Unavailable [facility], Pcp Primary Care Provider UnavailHawa Barron MD Primary Care Provider Unavaila Jessi Cagle [facility] Unavailable [phone] Encounter Details Date Type Department Care Team Description 10/10/2014 Hospital Medical Records [address] [place] [address] Elio Solano MD [address] [place] [address] [address] [place] [address] Social History Tobacco Use Types Packs/Day Years [...] on filedocumented in this encounter Care Teams Platen Drier Operator Relationship Specialty Start Date End Date Salomón Lou MD PCP - General Internal Medicine 09/01/14 09/08/15 Hawa Torres MD PCP - General Internal Medicine 09/09/15 12/19/20 Rancho Matthews MD [address] [place] [address] PCP - General Internal Medicine 12/20/20 03/22/21 [facility], Pcp [address] [place], [place] [phone] PCP - General Internal Medicine 03/23/21 04/11/21 Rancho Matthews MD [address] [place] [address]147 PCP - General Internal Medicine 04/12/21 04/12/21 Hawa Torres MD [address] [place] [address] 02256 PCP - General Internal Medicine 04/13/21 06/05/21 Hawa Torres MD [address] [place] [address] 69036 PCP - General Internal Medicine 06/06/21 08/07/21 [facility], Pcp [address] [place] [address] 50455 PCP - General Internal Medicine 08/08/21 10/27/21 Hawa Torres MD PCP - General Internal Medicine 10/28/21 04/11/22 [facility], Pcp [address] [place] [address] 73004 PCP - General Internal Medicine 04/12/22 05/01/22 Hawa Torres MD [address] [place] [address] 07821 PCP - General Internal Medicine 05/02/22 05/21/22 Melonie Sorensen, [address] [place] [address] 95932 PCP - General Internal Medicine 05/22/22 09/07/22 [facility], Pcp [address] [place] [address] 66923 PCP - General Internal Medicine 09/08/22 11/08/22 Hawa Torres MD [address] [place] [address] 46227 PCP - General Internal Medicine 11/09/22 Taya Gonzales MD Specialist Cardiology 11/01/20 Chandan Breen PA Specialist Cardiology 11/01/20 02/20/24 Jessi Erwin DNP [address] [place] [address] 48891 Specialist Nurse Practitioner Family 02/21/24 documented as of this encounter
--- OUTSIDE RECORDS SUMMARY | 2024-12-05 16:57 | XMS_ITS | Encounter Summary ---
Author Organization [facility] Address [address] [place] [address] Care Team Providers Care Small Equipment Operator Name Role Phone Hawa Torres MD [...] Care Team Description 04/22/2020 Telephone Dermatology - [address] [phone] Leda Lucas PA-C Social History [...] filedocumented in this encounter Care Teams Small Equipment Operator Relationship Specialty Start Date End Date Hawa Torres MD PCP - General Internal Medicine 09/09/15 12/19/20 Rancho Matthews MD [address] [place] [address] PCP - General Internal Medicine 12/20/20 03/22/21 [facility], [facility], [address] [address] PCP - General Internal Medicine 03/23/21 04/11/21 Rancho Matthews MD [address] [place] [address] 15161 PCP - General Internal Medicine 04/12/21 04/12/21 Hawa Torres MD [address] [place] [address] 7[address] PCP - General Internal Medicine 04/13/21 06/05/21 Hawa Torres MD [address] [place] [address] 37411 PCP - General Internal Medicine 06/06/21 08/07/21 [facility], [facility], Pcp [address] [place] [address] 94704 PCP - General Internal Medicine 08/08/21 10/27/21 Hawa Torres MD PCP - General Internal Medicine 10/28/21 04/11/22 [facility], [facility], Pcp [address] [place] [address] 62104 PCP - General Internal Medicine 04/12/22 05/01/22 Hawa Torres MD [address] [place] [address] 03439 PCP - General Internal Medicine 05/02/22 05/21/22 Melonie Sorensen, DO [address] [place] [address] 53921 PCP - General Internal Medicine 05/22/22 09/07/22 [facility], [facility], Pcp [address] [place] [address] 37749 PCP - General Internal Medicine 09/08/22 11/08/22 Hawa Torres MD [address] [place] [address] 46695 PCP - General Internal Medicine 11/09/22 Taya Gonzales MD Specialist Cardiology 11/01/20 Chandan Breen PA Specialist Cardiology 11/01/20 02/20/24 Jessi Erwin DNP [address] [place] [address] Specialist Nurse Practitioner [facility] 02/21/24 documented as of this encounter
--- OUTSIDE RECORDS SUMMARY | 2024-12-05 16:57 | XMS_ITS | Encounter Summary ---
Author Organization [facility] Address [address] [place] [address] Care Team Providers Care Field Hand Name Role Phone Taya Gonzales MD Unavailable [phone] Chandan Breen Unavailable Hawa Torres MD Primary Care Provider Unavaila elpidio [facility], Pcp Primary Care Provider UnavailHawa Barron MD Primary Care Provider Unavaila ble Melonie Sorensen DO Primary Care Pro vider Unavailable [facility], Pcp Primary Care Provider UnavailHawa Barron MD Primary Care Provider Unavaila ble Jessi Erwin DNP Unavailable [phone] Encounter Details Date Type Department Care Team Description 12/14/2021 Orders Only Medical Records [address] [place] [address] Julio C Lawler MD [address] [place] [address] Social History Tobacco Use Types Packs/Day Years [...] suspected to have Coronavirus/COVID-19? No / Unsure 12/15/2021 9:41 AM EDT documented as of this encounter Plan of Treatment Not on file documented as of this encounter Procedures Procedure Name Priority Date/Time Associated Diagnosis Comments OUTSIDE PATHOLOGY Routine 12/07/2021 documented in this encounter Results * OUTSIDE PATHOLOGY (12/07/2021) Julio C Lawler MD OUTSIDE LAB documented in this encounter Visit Diagnoses Not on filedocumented in this encounter Care Teams Field Hand Relationship Specialty Start Date End Date Hawa Torres MD PCP - General Internal Medicine 10/28/21 04/11/22 [facility], Pcp PCP - General Internal Medicine 04/12/22 05/01/22 Hawa Torres MD PCP - General Internal Medicine 05/02/22 05/21/22 Melonie Sorensen DO PCP - General Internal Medicine 05/22/22 09/07/22 [facility], Pcp PCP - General Internal Medicine 09/08/22 11/08/22 Hawa Torres MD PCP - General Internal Medicine 11/09/22 Taya Gonzales MD Specialist Cardiology 11/01/20 Chandan Breen PA Specialist Cardiology 11/01/20 02/20/24 Jessi Erwin DNP Specialist Nurse Practitioner Family 02/21/24 documented as of this encounter
--- OUTSIDE RECORDS SUMMARY | 2024-12-05 16:57 | XMS_ITS | Encounter Summary ---
Author Organization [facility] Address [address] [place] [address] Care Team Providers Care Database Modeler Name Role Phone Taya Gonzales MD Unavailable [phone] Chandan Breen Unavailable Hawa Torres MD Primary Care Provider Unavaila elpidio [facility], Pcp Primary Care Provider UnavailHawa Barron MD Primary Care Provider Unavaila ble Melonie Sorensen DO Primary Care Pro vider Unavailable [facility], Pcp Primary Care Provider UnavailHawa Barron MD Primary Care Provider Unavaila ble Jessi Erwin DNP Unavailable [phone] Encounter Details Date Type Department Care Team Description 12/07/2021 [facility] Medical Records [address] [place] [address] Julio C Lawler MD [address] [place] [address] Social History Tobacco Use Types Packs/Day Years [...] on filedocumented in this encounter Care Teams Database Modeler Relationship Specialty Start Date End Date Hawa [...]
--- OUTSIDE RECORDS SUMMARY | 2024-12-05 16:57 | XMS_ITS | Encounter Summary ---
Author Organization [facility] Address [address] [place] [address] Care Team Providers Care Road Repairer Name Role Phone Taya Gonzales MD Unavailable [phone] Chandan Breen Unavailable Rancho Matthews MD Primary Care Provider [phone] [facility], Pcp Primary Care Provider UnavailRancho Brock MD Primary Care Provider [phone] Hawa Torres MD Primary Care Provider Unavaila [...] Primary Care Provider Unavaila ble Jessi Erwin [facility] Unavailable [phone] Encounter Details Date Type Department Care Team Description 03/18/2021 Refill Adult Medicine [address] [phone] Rancho Matthews MD [address] [place] [address] [phone] Social History Tobacco Use Types Packs/Day Years [...] an upcoming appointment? No-[facility]able [facility] for [facility] due to [...] Patients current insurance carrier is: Payor: [facility] FFS / Plan: [facility] MEDICARE PREMIUM $10 [place] / Product Type: MEDICARE [id number] documented in this encounter Plan of Treatment Not on file documented as of this encounter Visit Diagnoses Not on filedocumented in this encounter Care Teams Road Repairer Relationship Specialty Start Date End Date Rancho Matthews MD [address] [place] [address] 61408 PCP - General Internal Medicine 12/20/20 03/22/21 [facility], Pcp [address] [place] [address] 18548 PCP - General Internal Medicine 03/23/21 04/11/21 Rancho Matthews MD [address] [place] [address] 66534 PCP - General Internal Medicine 04/12/21 04/12/21 Hawa Torres MD [address] [place] [address] 70177 PCP - General Internal Medicine 04/13/21 06/05/21 Hawa Torres MD [address] [place] [address] 32594 PCP - General Internal Medicine 06/06/21 08/07/21 [facility], Pcp [address] [place] [address] 20154 PCP - General Internal Medicine 08/08/21 10/27/21 Hawa Torres MD [address] [place] [address] 81005 PCP - General Internal Medicine 10/28/21 04/11/22 [facility], Pcp [address] [place] [address] 29904 PCP - General Internal Medicine 04/12/22 05/01/22 Hawa Torres MD [address] [place] [address] 93015 PCP - General Internal Medicine 05/02/22 05/21/22 Melonie Sorensen DO [address] [place] [address] 04217 PCP - General Internal Medicine 05/22/22 09/07/22 [facility], Pcp [address] [place] [address] 18635 PCP - General Internal Medicine 09/08/22 11/08/22 Hawa Torres MD [address] [place] [address] 25355 PCP - General Internal Medicine 11/09/22 Taya Gonzales MD Specialist Cardiology 11/01/20 Chandan Breen PA Specialist Cardiology 11/01/20 02/20/24 Jessi Erwin DNP [address] [place] [address] [phone] Specialist Nurse Practitioner [facility] 02/21/24 documented as of this encounter
--- OUTSIDE RECORDS SUMMARY | 2024-12-05 16:57 | XMS_ITS | Encounter Summary ---
Author Organization [facility] Address [address] [place] [address] Care Team Providers Care Cutch Cleaner Name Role Phone Taya Gonzales MD Unavailable [phone] Chandan Breen Unavailable Hawa Torres MD Primary Care Provider Unavaila ble [facility], Pcp Primary Care Provider UnavailHawa Barron MD Primary Care Provider Unavaila ble [facility], Pcp Primary Care Provider UnavailHawa Barron MD Primary Care Provider Unavaila ble Edwin Sorensenabela DO Primary Care Pro vider Unavailable [facility], Pcp Primary Care Provider Hawa Zavala MD Primary Care Provider Unavaila ble Jessi Erwin DNP Unavailable [phone] Reason for Visit * Reason Onset Date Comments other 06/06/2021 Encounter Details Date Type Department Care Team Description 06/06/2021 Telephone Cardio PVC POC 154 [address] [facility] [address] [place] [address] Taya Gonzales MD [address] [place] [address] [phone] other Social History Tobacco Use Types Packs/Day [...] on filedocumented in this encounter Care Teams Cutch Cleaner Relationship Specialty Start Date End Date Hawa Torres MD PCP - General Internal Medicine 06/06/21 08/07/21 [facility], Pcp PCP - General Internal Medicine 08/08/21 10/27/21 Hawa Torres MD PCP - General Internal Medicine 10/28/21 04/11/22 [facility], Pcp PCP - General Internal Medicine 04/12/22 05/01/22 Hawa Torres MD PCP - General Internal Medicine 05/02/22 05/21/22 Melnoie Sorensen DO PCP - General Internal Medicine 05/22/22 09/07/22 [facility], Pcp PCP - General Internal Medicine 09/08/22 11/08/22 Hawa Torres MD PCP - General Internal Medicine 11/09/22 Taya Gonzales MD Specialist Cardiology 11/01/20 Chandan Breen PA Specialist Cardiology 11/01/20 02/20/24 Jessi Erwin DNP Specialist Nurse Practitioner Family 02/21/24 documented as of this encounter
--- OUTSIDE RECORDS SUMMARY | 2024-12-05 16:57 | XMS_ITS | Encounter Summary ---
Author Organization [facility] Address [address] [place] [address] Care Team Providers Care Cold Header Operator Name Role Phone Taya Gonzales MD Unavailable [phone] Chandan Breen Unavailable Hawa Torres MD Primary Care Provider Unavaila Hawa Maddox MD Primary Care Provider Unavaila ble [facility], Pcp Primary Care Provider UnavailHawa Barron MD Primary Care Provider Unavaila ble [facility], Pcp Primary Care Provider UnavailHawa Barron MD Primary Care Provider Unavaila ble Melonie Sorensen DO Primary Care Pro vider Unavailable [facility], Pcp Primary Care Provider UnavailHawa Barron MD Primary Care Provider Unavaila ble Jessi Erwin [facility] Unavailable [phone] Encounter Details Date Type Department Care Team Description 04/19/2021 Orders Only Pulmonology - [place] [address] [facility] [address] [place] [address] Kavin Sprague MD [address] [facility] [address] [place] [address] Shortness of breath; Obstructive sleep [...] Procedure Name Priority Date/Time Associated Diagnosis Comments [place] NONINVASIVE EAR/PULSE OXIMETRY OVERNIGHT MONITOR Routine 04/11/2021 [...] failure documented in this encounter Care Teams Cold Header Operator Relationship Specialty Start Date End Date Hawa Torres MD PCP - General Internal Medicine 04/13/21 06/05/21 Hawa Torres MD PCP - General Internal Medicine 06/06/21 08/07/21 [facility], Pcp PCP - General Internal Medicine 08/08/21 10/27/21 Hawa Torres MD PCP - General Internal Medicine 10/28/21 04/11/22 [facility], Pcp PCP - General Internal Medicine 04/12/22 05/01/22 Hawa Torres MD PCP - General Internal Medicine 05/02/22 05/21/22 Melonie Sorensen DO PCP - General Internal Medicine 05/22/22 09/07/22 [facility], Pcp PCP - General Internal Medicine 09/08/22 11/08/22 Hawa Torres MD PCP - General Internal Medicine 11/09/22 Taya Gonzales MD Specialist Cardiology 11/01/20 Chandan Breen PA Specialist Cardiology 11/01/20 02/20/24 Jessi Erwin DNP Specialist Nurse Practitioner Family 02/21/24 documented as of this encounter
--- OUTSIDE RECORDS SUMMARY | 2024-12-05 16:57 | XMS_ITS | Encounter Summary ---
Author Organization [facility] Address [address] [place] [address] Care Team Providers Care Cna Per Diem Name Role Phone Taya Gonzales MD Unavailable [phone] Chandan Breen Unavailable [facility], Pcp Primary Care Provider UnavailRancho Brock MD Primary Care Provider [phone] Hawa Torres MD Primary Care Provider Unavaila Hawa Maddox MD Primary Care Provider Unavaila ble [facility], Pcp Primary Care Provider UnavailHawa Barron MD Primary Care Provider Unavaila ble [facility], Pcp Primary Care Provider UnavailHawa Barron MD Primary Care Provider Unavaila ble Melonie Sorensen DO Primary Care Pro vider Unavailable [facility], Pcp Primary Care Provider UnavailHawa Barron MD Primary Care Provider Unavaila ble Jessi Erwin [facility] Unavailable [phone] Encounter Details Date Type Department Care Team Description 04/08/2021 Pt. Non Urgent Medical Question Cardio PVC POC 154 300 [facility] [address] [place] [address] Taya Gonzales MD [address] [place] [address] [phone] Pericardial effusion (Primary Dx) Social History Tobacco [...] pericardium documented in this encounter Care Teams Cna Per Diem Relationship Specialty Start Date End Date [facility], Pcp PCP - General Internal Medicine 03/23/21 04/11/21 Rancho Matthews MD [address] [place] [address] PCP - General Internal Medicine 04/12/21 04/12/21 Hawa Torres MD [address] [place] [address] 8[address] PCP - General Internal Medicine 04/13/21 06/05/21 Hawa Torres MD [address] [place] [address] 62749 PCP - General Internal Medicine 06/06/21 08/07/21 [facility], Pcp PCP - General Internal Medicine 08/08/21 10/27/21 Hawa Torres MD [address] [place] [address]46 PCP - General Internal Medicine 10/28/21 04/11/22 [facility], Pcp PCP - General Internal Medicine 04/12/22 05/01/22 Hawa Torres MD [address] [place] [address] 78458 PCP - General Internal Medicine 05/02/22 05/21/22 Melonie Sorensen DO [address] [place] [address] 96980 PCP - General Internal Medicine 05/22/22 09/07/22 [facility], Pcp PCP - General Internal Medicine 09/08/22 11/08/22 Hawa Torres MD [address] [place] [address] PCP - General Internal Medicine 11/09/22 Taya Gonzales MD Specialist Cardiology 11/01/20 Chandan Breen PA Specialist Cardiology 11/01/20 02/20/24 Jessi Erwin DNP [address] [place] [address] Specialist Nurse Practitioner [facility] 02/21/24 documented as of this encounter
--- OUTSIDE RECORDS SUMMARY | 2024-12-05 16:57 | XMS_ITS | Encounter Summary ---
Author Organization [facility] Address [address] [place] [address] Care Team Providers Care Wood Preserving Plant Laborer Name Role Phone Taya Gonzales MD Unavailable [phone] Chandan Breen Unavailable Hawa Torres MD Primary Care Provider Unavaila Melonie Rojas DO Primary Care Pro vider Unavailable [facility], Pcp Primary Care Provider UnavailHawa Barron MD Primary Care Provider Unavaila Jessi Cagle DNP Unavailable [phone] Encounter Details Date Type Department Care Team Description 05/02/2022 Telephone Cardio PVCA Diag Testing 101 [address] [facility] [address] [place] [address] Chandan Breen PA [address] [place] [address] [phone] Social History Tobacco Use Types Packs/Day Years [...] suspected to have Coronavirus/COVID-19? No / Unsure 05/02/2022 1:14 PM EDT documented as of this encounter Miscellaneous Notes * Telephone Encounter - Leslee Muñoz C.M.A. - 05/02/2022 3:22 PM EDT Zeina Rouse si pulling echo reprot from [facility]. * Telephone Encounter - FLORY Edward - 05/02/2022 2:04 PM EDT Good afternoon. When you get a chance, can you please try to going to the [employer] system and get the official echo report from this patient's most recent admission at [facility]. Thanks. documented in this encounter Plan of Treatment Not on file documented as of this encounter Visit Diagnoses Not on filedocumented in this encounter Care Teams Wood Preserving Plant Laborer Relationship Specialty Start Date End Date Hawa Torres MD PCP - General Internal Medicine 05/02/22 05/21/22 Melonie Sorensen DO PCP - General Internal Medicine 05/22/22 09/07/22 [facility], Pcp PCP - General Internal Medicine 09/08/22 11/08/22 Hawa Torres MD PCP - General Internal Medicine 11/09/22 Taya Gonzales MD Specialist Cardiology 11/01/20 Chandan Breen PA Specialist Cardiology 11/01/20 02/20/24 Jessi Erwin DNP Specialist Nurse Practitioner Family 02/21/24 documented as of this encounter
--- OUTSIDE RECORDS SUMMARY | 2024-12-05 16:57 | XMS_ITS | Encounter Summary ---
Author Organization [facility] Address [address] [place] [address] Care Team Providers Care Patient Attendant Name Role Phone Taya Gonzales MD Unavailable [phone] Chandan Breen Unavailable Hawa Torres MD Primary Care Provider Unavaila elpidio [facility], Pcp Primary Care Provider UnavailHawa Barron MD Primary Care Provider Unavaila ble Melonie Sorensen DO Primary Care Pro vider Unavailable [facility], Pcp Primary Care Provider UnavailHawa Barron MD Primary Care Provider Unavaila ble Jessi Erwin DNP Unavailable [phone] Encounter Details Date Type Department Care Team Description 12/07/2021 Orders Only Medical Records [address] [place] [address] Julio C Lawler MD [address] [place] [address] Social History Tobacco Use Types Packs/Day Years [...] Date/Time Associated Diagnosis Comments OUTSIDE MAMMO Routine 12/07/2021 documented in this encounter Results * OUTSIDE MAMMO (12/07/2021) Julio C Lawler MD RADIOLOGY documented in this encounter Visit Diagnoses Not on filedocumented in this encounter Care Teams Patient Attendant Relationship Specialty Start Date End Date Hawa Torres MD PCP - General Internal Medicine 10/28/21 04/11/22 [facility], Pcp PCP - General Internal Medicine 04/12/22 05/01/22 Hawa Torres MD PCP - General Internal Medicine 05/02/22 05/21/22 Melonie Sorensen DO PCP - General Internal Medicine 05/22/22 09/07/22 [facility], Pcp PCP - General Internal Medicine 09/08/22 11/08/22 Hawa Torres MD PCP - General Internal Medicine 11/09/22 Taya Gonzales MD Specialist Cardiology 11/01/20 Chandan Breen PA Specialist Cardiology 11/01/20 02/20/24 Jessi Erwin DNP Specialist Nurse Practitioner Family 02/21/24 documented as of this encounter
--- OUTSIDE RECORDS SUMMARY | 2024-12-05 16:57 | XMS_ITS | Encounter Summary ---
Author Organization [facility] Address [address] [place] [address] Care Team Providers Care Country Director Name Role Phone Salomón Lou MD Primary Care Provider Unavail able Hawa Torres MD Primary Care Provider Unavaila Taya Covington MD Unavailable [phone] Chandan Breen Unavailable Rancho Matthews MD Primary Care Provider [phone] [facility], [facility] Primary Care Provider Unavailabl Rancho Martin MD Primary Care Provider [phone] Hawa Torres MD Primary Care Provider Unavaila [...] Jessi Erwin [facility] Unavailable [phone] Reason for Visit * Reason Onset Date Comments Wire Transfer Clerk Feedback 12/21/2014 Encounter Details Date Type Department Care Team Description 12/21/2014 Telephone Medicine/Pediatrics - [address] [phone] Salomón Lou MD Wire Transfer Clerk Feedback Social History Tobacco Use Types Packs/Day Years [...] encounter Miscellaneous Notes * Telephone Encounter - Betty Aj - 12/21/2014 12:04 PM EDT Message forwarded back to pourer metal. Is this patient looking to have a sleep study or be referred to pulmonology for sleep apnea? * Telephone Encounter - Sagrario Martin M.A. - 12/21/2014 11:24 AM EDT Did you verify this is patients current insurance? YES Payor: [facility] FFS / Plan: [facility] MEDICARE PREMIUM $15 NAGA / Product Type: MEDICARE [id number] Effective 06/24/09: [employer] will not retro referral requests over 90 days. If request is for this please instruct patient to call the 800# on their insurance card to appeal. Do not submit a request. Referrals cannot be processed if the insurance is not accurate. If the insurance listed above in red is NO BILLING INFORMATION FOUND FOR THIS ENCOUTNER The patients correct insurance must be obtained and registered in [facility] or their referral can not be processed. Who is calling to request this referral? patient If the caller is not the patient, what is their name? N/A FIRST and LAST NAME of SPECIALIST PATIENT is seeing: What specialty is this? Sleep center DIAGNOSIS Patient is being seen for (Not a body part or a procedure): sleep apnea Have you seen this SPECIALIST for this PROBLEM/DX before?NO If YES, when: Have you checked REVIEW or the APPT DESK to see if this referral has already been done or has visits left? YES Who referred the patient to this specialty? Salomón Lou Is this visit:Initial Visit Address of Specialist:[facility] Phone # of Specialist:[phone] Fax #: (if applicable): Does patient have an appointment scheduled?: NO Date of appointment- (including a retro-request): Is this appointment related to: Not MVA, WC or Surgery related documented in this encounter Plan of Treatment Not on file documented as of this encounter Visit Diagnoses Not on filedocumented in this encounter Care Teams Country Director Relationship Specialty Start Date End Date Salomón Lou MD PCP - General Internal Medicine 09/01/14 09/08/15 Hawa Torres MD PCP - General Internal Medicine 09/09/15 12/19/20 Rancho Matthews MD [address] [place] [address] 28147 PCP - General Internal Medicine 12/20/20 03/22/21 [facility], Pcp [address] [place] [address] 77095 PCP - General Internal Medicine 03/23/21 04/11/21 Rancho Matthews MD [address] [place] [address] 50216 PCP - General Internal Medicine 04/12/21 04/12/21 Haaw oTrres MD [address] [place] [address] 29968 PCP - General Internal Medicine 04/13/21 06/05/21 Hawa Torres MD [address] [place] [address] 29952 PCP - General Internal Medicine 06/06/21 08/07/21 [facility], Pcp [address] [place] [address] 62645 PCP - General Internal Medicine 08/08/21 10/27/21 Hawa Torres MD PCP - General Internal Medicine 10/28/21 04/11/22 [facility], Pcp [address] [place] [address] 00022 PCP - General Internal Medicine 04/12/22 05/01/22 Hawa Torres MD [address] [place] [address] 33525 PCP - General Internal Medicine 05/02/22 05/21/22 Melonie Sorensen DO [address] [place] [address] 03453 PCP - General Internal Medicine 05/22/22 09/07/22 [facility], Pcp [address] [place] [address] 73094 PCP - General Internal Medicine 09/08/22 11/08/22 Hawa Torres MD [address] [place] [address] 66164 PCP - General Internal Medicine 11/09/22 Taya Gonzales MD Specialist Cardiology 11/01/20 Chandan Breen PA Specialist Cardiology 11/01/20 02/20/24 Jessi Erwin, KITTY [address] [place] [address] 16237 Specialist Nurse Practitioner [facility] 02/21/24 documented as of this encounter
--- OUTSIDE RECORDS SUMMARY | 2024-12-05 16:57 | XMS_ITS | Encounter Summary ---
Author Organization [facility] Address [address] [place] [address] Care Team Providers Care Social Group Worker Name Role Phone Hawa Torres MD Primary Care Provider Unavaila Taya Covington MD Unavailable [phone] Chandan Breen Unavailable Rancho Matthews MD Primary Care Provider [phone] [facility], Pcp Primary Care Provider UnavailRancho Brock MD Primary Care Provider [phone] Hawa Torres MD Primary Care Provider Unavaila Hawa Maddox MD Primary Care Provider Unavaila ble [facility], Pcp Primary Care Provider UnavailHawa Barron MD Primary Care Provider Unavaila ble [facility], Pcp Primary Care Provider UnavailHawa Barron MD Primary Care Provider Unavaila ble Melonie Sorensen DO Primary Care Pro vider Unavailable [facility], Pcp Primary Care Provider Hawa Zavala MD Primary Care Provider Unavaila Jessi Cagle [facility] Unavailable [phone] Reason for Visit * Reason Onset Date Comments Pre-colonoscopy Instructions 11/05/2015 Encounter Details Date Type Department Care Team Description 11/05/2015 Telephone Gastroenterology - [address] [phone] Sammy Curtis MD Pre-colonoscopy Instructions Social History Tobacco Use Types Packs/Day Years [...] Telephone Encounter - Hawa Torres MD - 11/10/2015 12:31 PM EST Thanks so much. * Telephone Encounter - Brittny Burger R.N. - 11/09/2015 1:41 PM EST Spoke with pt's daughter (verbal release on file) and explained MD's recommendation that pt have the CN done in the hospital setting. Daughter inquiring why pt needs this screen, thought the fecal testing was 'in lieu of' the screen. I reviewed the test result with daughter, informing her that because it was positive for occult blood, her PCP felt the screen was necessary. She voices understanding. She is advised that the schedulers will contact her with a new date for the screen at the hospital,and this appointment at [facility] will be cancelled. Schedulers - please contact Madelin to reschedule Dana's exam at [facility]. Thank you - TATUM * Telephone Encounter - Sammy Patel MD - 11/09/2015 11:20 AM EST Given her comorbidities would opt for procedure at the hospital Thank you * Telephone Encounter - Brittny Burger R.N. - 11/05/2015 3:[address] Curtis, this pt is scheduled for a CN with you on 11/23/15. Her record indicates her PCP referred her d/t positive fecal occult blood testing 08/2015. There are no previous CN reports available for this pt - she reports she had screen in 2007. Please review this pt's record - her PCP indicates sheis 'high- risk', with a hx of CKD (GFR 34-39), chronic cardiac issues that require a ventricular pacer/defibrillator, diabetes, and STACEY. Please advise if pt should have this screen, and if it should be done at or hospital. TATUM documented in this encounter Plan of Treatment Not on file documented as of this encounter Visit Diagnoses Not on filedocumented in this encounter Care Teams Social Group Worker Relationship Specialty Start Date End Date Hawa Torres MD PCP - General Internal Medicine 09/09/15 12/19/20 Rancho Matthews MD [address] [place] [address] 15750 PCP - General Internal Medicine 12/20/20 03/22/21 [facility], Pcp [address] [place] [address] 80422 PCP - General Internal Medicine 03/23/21 04/11/21 Rancho Matthews MD [address] [place] [address] 17034 PCP - General Internal Medicine 04/12/21 04/12/21 Hawa Torres MD [address] [place] [address] 88857 PCP - General Internal Medicine 04/13/21 06/05/21 Hawa Torres MD [address] [place] [address] 97332 PCP - General Internal Medicine 06/06/21 08/07/21 [facility], Pcp [address] [place] [address] 32226 PCP - General Internal Medicine 08/08/21 10/27/21 Hawa Torres MD PCP - General Internal Medicine 10/28/21 04/11/22 [facility], Pcp [address] [place] [address] 74874 PCP - General Internal Medicine 04/12/22 05/01/22 Hawa Torres MD [address] [place] [address] 67248 PCP - General Internal Medicine 05/02/22 05/21/22 [facility], [address] [place] [address] 81046 PCP - General Internal Medicine 05/22/22 09/07/22 [facility], Pcp [address] [place] [address] 39164 PCP - General Internal Medicine 09/08/22 11/08/22 Hawa Torres MD [address] [place] [address] 94865 PCP - General Internal Medicine 11/09/22 Taya Gonzales MD Specialist Cardiology 11/01/20 Chandan Breen PA Specialist Cardiology 11/01/20 02/20/24 Jessi Erwin, KITTY [address] [place] [address]505 Specialist Nurse Practitioner [facility] 02/21/24 documented as of this encounter
--- OUTSIDE RECORDS SUMMARY | 2024-12-05 16:57 | XMS_ITS | Encounter Summary ---
Author Organization [facility] Address [address] [place] [address] Care Team Providers Care Database Administrator Name Role Phone Taya Gonzales MD Unavailable [phone] Chandan Breen Unavailable Hawa Torres MD Primary Care Provider Unavaila elpidio [facility], Pcp Primary Care Provider UnavailHawa Barron MD Primary Care Provider Unavaila ble Melonie Sorensen DO Primary Care Pro vider Unavailable [facility], Pcp Primary Care Provider UnavailHawa Barron MD Primary Care Provider Unavaila ble Jessi Erwin DNP Unavailable [phone] Encounter Details Date Type Department Care Team Description 11/04/2021 Telephone General Surgery [address] [place] [address] Julio C Lawler MD [address] [place] [address] Social History Tobacco Use Types Packs/Day Years [...] Miscellaneous Notes * Telephone Encounter - Lorin Mello M.A. - 11/04/2021 1:06 PM EST ----- Message from Dana Grant sent at 11/04/2021 12:54 PM EST ----- Regarding: Mri biopsy I spoke with the imaging facility that Dr Lawler had sent the referal to for Dana's biopsy. After advising them of her defib/pacemaker implant from 2010 they stated they could not do the imaging andto contact you. Madelin [phone] documented in this encounter Plan of Treatment Not on file documented as of this encounter Visit Diagnoses Not on filedocumented in this encounter Care Teams Database Administrator Relationship Specialty Start Date End Date [...]
--- OUTSIDE RECORDS SUMMARY | 2024-12-05 16:57 | XMS_ITS | Encounter Summary ---
Author Organization [facility] Address [address] [place] [address] Care Team Providers Care Supervisor Furnace Room Name Role Phone Hawa Torres MD Primary Care Provider Unavaila Taya Covington MD Unavailable [phone] hCandan Breen Unavailable + Rancho Matthews MD Primary Care Provider + [facility], [facility] Primary Care Provider UnavailRancho Brock MD [...] MD Primary Care Provider Unavaila Jessi Cagle [facility] Unavailable + [phone] Encounter Details Date Type Department Care Team Description 08/16/2020 Pt. Non Urgent Medical Question Medicine/Pediatrics - [address] [id number] Hawa Torres MD Social History Tobacco Use [...] filedocumented in this encounter Care Teams Supervisor Furnace Room Relationship Specialty Start Date End Date Hawa Torres MD PCP - General Internal Medicine 09/09/15 12/19/20 Rancho Matthwes MD [address] [place] [address] 78264 PCP - General Internal Medicine 12/20/20 03/22/21 [facility], Pcp [address] [place] [address] 38506 PCP - General Internal Medicine 03/23/21 04/11/21 Rancho Matthews MD [address] [place] [address] 24181 PCP - General Internal Medicine 04/12/21 04/12/21 Hawa Torres MD [address] [place] [address] 84948 PCP - General Internal Medicine 04/13/21 06/05/21 Hawa Torres MD [address] [place] [address] 91581 PCP - General Internal Medicine 06/06/21 08/07/21 [facility], Pcp [address] [place] [address] 74364 PCP - General Internal Medicine 08/08/21 10/27/21 Hawa Torres MD PCP - General Internal Medicine 10/28/21 04/11/22 [facility], Pcp [address] [place] [address] 13874 PCP - General Internal Medicine 04/12/22 05/01/22 Hawa Torres MD [address] [place] [address] 68875 PCP - General Internal Medicine 05/02/22 05/21/22 Melonie Sorensen, DO [address] [place] [address] 46121 PCP - General Internal Medicine 05/22/22 09/07/22 [facility], Pcp [address] [place] [address] 28927 PCP - General Internal Medicine 09/08/22 11/08/22 Hawa Torres MD [address] [place] [address] 24915 PCP - General Internal Medicine 11/09/22 Taya Gonzales MD Specialist Cardiology 11/01/20 Chandan Breen PA Specialist Cardiology 11/01/20 02/20/24 Jessi Erwin DNP [address] [place] [address] 98447 Specialist Nurse Practitioner Family 02/21/24 documented as of this encounter
--- OUTSIDE RECORDS SUMMARY | 2024-12-05 16:58 | XMS_ITS | Encounter Summary ---
Author Organization [facility] Address [address] [place] [address] Care Team Providers Care Regional Hr Manager Name Role Phone Taya Gonzales MD Unavailable [phone] Chandan Breen Unavailable Hawa Torres MD Primary Care Provider Unavaila Jessi Cagle DNP Unavailable [phone] Encounter Details Date Type Department Care Team Description 12/20/2023 Orders Only Endocrinology - [address] [address] Lucille Clarke PA-C [address] [place] [address] [id number] Hypothyroidism, unspecified type (Primary Dx) Social History [...] 4.00 uIU/ml 12/20/2023 8:16 PM EDT [facility] 12/20/2023 4:28 PM EDT 12/20/2023 4:28 PM EDT Narrative [facility] - 12/20/2023 8:16 PM EDT Release to patient->Immediate Lucille Clarke PA-C [facility] documented in this encounter Visit Diagnoses Diagnosis Hypothyroidism, unspecified type- Primary Hypothyroidism, unspecified type documented in this encounter Care Teams Regional Hr Manager Relationship Specialty Start Date End Date Hawa Torres MD PCP - General Internal Medicine 11/09/22 Taya Gonzales MD Specialist Cardiology 11/01/20 Chandan Breen PA Specialist Cardiology 11/01/20 02/20/24 Jessi Erwin DNP Specialist Nurse Practitioner Family 02/21/24 documented as of this encounter
--- OUTSIDE RECORDS SUMMARY | 2024-12-05 16:58 | XMS_ITS | Encounter Summary ---
Author Organization [facility] Address [address] [place] [address] Care Team Providers Care Flux Core Welder Name Role Phone Hawa Torres MD Primary Care Provider UnavailTaya Lira MD Unavailable [phone] Chandan Breen Unavailable Rancho Matthews MD Primary Care Provider + [facility], [facility] Primary Care Provider [...] Unavaila Jessi Cagle [facility] Unavailable [phone] Encounter Details Date Type Department Care Team Description 04/15/2019 Hospital Medical Records [address] [place] [address] Social History Tobacco Use Types Packs/Day Years [...] on filedocumented in this encounter Care Teams Flux Core Welder Relationship Specialty Start Date End Date Hawa Torres MD PCP - General Internal Medicine 09/09/15 12/19/20 Rancho Matthews MD [address] [place] [address] 6[address] PCP - General Internal Medicine 12/20/20 03/22/21 [facility], Pcp [address] [place] [address] 18153 PCP - General Internal Medicine 03/23/21 04/11/21 Rancho Matthews MD [address] [place] [address] 86799 PCP - General Internal Medicine 04/12/21 04/12/21 Hawa Torres MD [address] [place] [address] 74425 PCP - General Internal Medicine 04/13/21 06/05/21 Hawa Torres MD [address] [place] [address] 80684 PCP - General Internal Medicine 06/06/21 08/07/21 [facility], Pcp [address] [place] [address] 39101 PCP - General Internal Medicine 08/08/21 10/27/21 Hawa Torres MD PCP - General Internal Medicine 10/28/21 04/11/22 [facility], Pcp [address] [place] [address] 10672 PCP - General Internal Medicine 04/12/22 05/01/22 Hawa Torres MD [address] [place] [address] 64628 PCP - General Internal Medicine 05/02/22 05/21/22 Melonie Sorensen DO [address] [place] [address] 25353 PCP - General Internal Medicine 05/22/22 09/07/22 [facility], Pcp [address] [place] [address] 42302 PCP - General Internal Medicine 09/08/22 11/08/22 Hawa Torres MD [address] [place] [address] 32978 PCP - General Internal Medicine 11/09/22 Taya Gonzales MD Specialist Cardiology 11/01/20 Chandan Breen PA Specialist Cardiology 11/01/20 02/20/24 Jessi Erwin, KITTY [address] [place] [address] 01020 Specialist Nurse Practitioner Family 02/21/24 documented as of this encounter
--- OUTSIDE RECORDS SUMMARY | 2024-12-05 16:58 | XMS_ITS | Encounter Summary ---
Author Organization [facility] Address [address] [place] [address] Care Team Providers Care Attic Fans Mechanic Name Role Phone Hawa Torres MD Primary Care Provider UnavailTaya Lira MD Unavailable [phone] Chandan Breen Unavailable + Rancho Matthews MD Primary Care Provider [phone] [facility], Pcp Primary Care Provider UnavailRancho Brock MD Primary Care Provider [phone] Hawa Torres MD Primary Care Provider Unavaila Hawa Maddox MD Primary Care Provider Unavaila elpidio [facility], Pcp Primary Care Provider Hawa Zavala MD Primary Care Provider Unavaila ble [facility], Pcp Primary Care Provider Hawa Zavala MD Primary Care Provider Unavaila Melonei Rojas DO Primary Care Pro vider Unavailable [facility], Pcp Primary Care Provider Hawa Zavala MD Primary Care Provider Unavaila Jessi Cagle [facility] Unavailable [phone] Encounter Details Date Type Department Care Team Description 04/16/2017 Orders Only Adult Medicine [address] [address] Hawa Torres MD Social History Tobacco Use [...] on filedocumented in this encounter Care Teams Attic Fans Mechanic Relationship Specialty Start Date End Date Hawa Torres MD PCP - General Internal Medicine 09/09/15 12/19/20 Rancho Matthews MD [address] [place] [address] PCP - General Internal Medicine 12/20/20 03/22/21 [facility], Pcp [address] [place] [address] 85796 PCP - General Internal Medicine 03/23/21 04/11/21 Rancho Matthews MD [address] [place] [address] 37988 PCP - General Internal Medicine 04/12/21 04/12/21 Hawa Torres MD [address] [place] [address] 35980 PCP - General Internal Medicine 04/13/21 06/05/21 Hawa Torres MD [address] [place] [address] 52011 PCP - General Internal Medicine 06/06/21 08/07/21 [facility], Pcp [address] [place] [address] 12302 PCP - General Internal Medicine 08/08/21 10/27/21 Hawa Torres MD PCP - General Internal Medicine 10/28/21 04/11/22 [facility], Pcp [address] [place] [address] 10714 PCP - General Internal Medicine 04/12/22 05/01/22 Hawa Torres MD [address] [place] [address] 71208 PCP - General Internal Medicine 05/02/22 05/21/22 Melonie Sorensen DO [address] [place] [address] 52426 PCP - General Internal Medicine 05/22/22 09/07/22 [facility], Pcp [address] [place] [address] 09479 PCP - General Internal Medicine 09/08/22 11/08/22 Hawa Torres MD [address] [place] [address] 02242 PCP - General Internal Medicine 11/09/22 Taya Gonzales MD Specialist Cardiology 11/01/20 Chandan Breen PA Specialist Cardiology 11/01/20 02/20/24 Jessi Erwin DNP [address] [place] [address]94 Specialist Nurse Practitioner Family 02/21/24 documented as of this encounter
--- OUTSIDE RECORDS SUMMARY | 2024-12-05 16:58 | XMS_ITS | Encounter Summary ---
Author Organization [facility] Address [address] [place] [address] Care Team Providers Care Learning And Development Officer Name Role Phone Taya Gonzales MD Unavailable [phone] Chandan Breen Unavailable Rancho Matthews MD Primary Care Provider [phone] [facility], Pcp Primary Care Provider UnavailRancho Brock MD Primary Care Provider [phone] Hawa Torres MD Primary Care Provider Unavaila Hawa Maddox MD Primary Care Provider Unavaila ble [facility], Pcp Primary Care Provider UnavailHawa Barron MD Primary Care Provider Unavaila ble [facility], Pcp Primary Care Provider UnavailHawa Barron MD Primary Care Provider Unavaila ble Melonie Sorensen DO Primary Care Pro vider Unavailable [facility], Pcp Primary Care Provider UnavailHawa Barron MD Primary Care Provider Unavaila ble Jessi Erwin [facility] Unavailable [phone] Encounter Details Date Type Department Care Team Description 03/01/2021 Pt. Non Urgent Medical Question Nephrology - [place] [address] [place] [address] Mc Barragan MD [address] [place] [address] [phone] Social History Tobacco Use Types Packs/Day Years [...] on filedocumented in this encounter Care Teams Learning And Development Officer Relationship Specialty Start Date End Date Rancho Matthews MD [address] [place] [address] PCP - General Internal Medicine 12/20/20 03/22/21 [facility], Pcp [address] [place] [address] 11591 PCP - General Internal Medicine 03/23/21 04/11/21 Rancho Matthews MD [address] [place] [address] 71848 PCP - General Internal Medicine 04/12/21 04/12/21 Hawa Torres MD [address] [place] [address] 26570 PCP - General Internal Medicine 04/13/21 06/05/21 Hawa Torres MD [address] [place] [address] 01528 PCP - General Internal Medicine 06/06/21 08/07/21 [facility], Pcp [address] [place] [address] 56983 PCP - General Internal Medicine 08/08/21 10/27/21 Hawa Torres MD [address] [place] [address] 77657 PCP - General Internal Medicine 10/28/21 04/11/22 [facility], Pcp [address] [place] [address] 16511 PCP - General Internal Medicine 04/12/22 05/01/22 Hawa Torres MD [address] [place] [address] 24117 PCP - General Internal Medicine 05/02/22 05/21/22 Melonie Sorensen DO [address] [place] [address] 92879 PCP - General Internal Medicine 05/22/22 09/07/22 [facility], Pcp [address] [place] [address] 93456 PCP - General Internal Medicine 09/08/22 11/08/22 Hawa Torres MD [address] [place] [address] 81936 PCP - General Internal Medicine 11/09/22 Taya Gonzales MD Specialist Cardiology 11/01/20 Chandan Breen PA Specialist Cardiology 11/01/20 02/20/24 Jessi Erwin DNP [address] [place] [address] 95925 Specialist Nurse Practitioner [facility] 02/21/24 documented as of this encounter
--- OUTSIDE RECORDS SUMMARY | 2024-12-05 16:58 | XMS_ITS | Encounter Summary ---
Author Organization [facility] Address [address] [place] [address] Care Team Providers Care Gas Fitter Apprentice Name Role Phone Taya Gonzales MD Unavailable [phone] Chandan Breen Unavailable + Rancho Matthews MD Primary Care Provider [phone] [facility], Pcp Primary Care Provider UnavailRancho Brock MD Primary Care Provider [phone] Hawa Torres MD Primary Care Provider Unavaila Hawa Maddox MD Primary Care Provider Unavaila ble [facility], Pcp Primary Care Provider UnavailHawa Barron MD Primary Care Provider Unavaila ble [facility], Pcp Primary Care Provider UnavailHawa Barron MD Primary Care Provider Unavaila ble Melonie Sorensen DO Primary Care Pro vider Unavailable [facility], Pcp Primary Care Provider UnavailHawa Barron MD Primary Care Provider Unavaila ble Jessi Erwin [facility] Unavailable [phone] Reason for Visit * Reason Comments E-prescribe Rx Request Encounter Details Date Type Department Care Team Description 03/05/2021 Refill Adult Medicine [address] [phone] Rancho Matthews MD [address] [place] [address] [phone] E-prescribe Rx Request Social History Tobacco Use [...] N/A Patients current insurance carrier is: Payor: [facility] FFS / Plan: [facility] MEDICARE PREMIUM $10 NAGA / Product Type: MEDICARE [id number] documented in this encounter Plan of Treatment Not on file documented as of this encounter Visit Diagnoses Not on filedocumented in this encounter Care Teams Gas Fitter Apprentice Relationship Specialty Start Date End Date Rancho Matthews MD [address] [place] [address] PCP - General Internal Medicine 12/20/20 03/22/21 [facility], Pcp [address] [place] [address] 41475 PCP - General Internal Medicine 03/23/21 04/11/21 Rancho Matthews MD [address] [place] [address] 16293 PCP - General Internal Medicine 04/12/21 04/12/21 Hawa Torres MD [address] [place] [address] 39504 PCP - General Internal Medicine 04/13/21 06/05/21 Hawa Torres MD [address] [place] [address] 87957 PCP - General Internal Medicine 06/06/21 08/07/21 [facility], Pcp [address] [place] [address] 59350 PCP - General Internal Medicine 08/08/21 10/27/21 Hawa Torres MD [address] [place] [address] 87588 PCP - General Internal Medicine 10/28/21 04/11/22 [facility], Pcp [address] [place] [address] 24589 PCP - General Internal Medicine 04/12/22 05/01/22 Hawa Torres MD [address] [place] [address] 29728 PCP - General Internal Medicine 05/02/22 05/21/22 Melonie Sorensen DO [address] [place] [address] 74751 PCP - General Internal Medicine 05/22/22 09/07/22 [facility], [address] [address] PCP - General Internal Medicine 09/08/22 11/08/22 Hawa Torres MD [address] [place] [address] 17749 PCP - General Internal Medicine 11/09/22 Taya Gonzales MD Specialist Cardiology 11/01/20 Chandan Breen PA Specialist Cardiology 11/01/20 02/20/24 Jessi Erwin DNP [address] [place] [address] 36686 Specialist Nurse Practitioner [facility] 02/21/24 documented as of this encounter
--- OUTSIDE RECORDS SUMMARY | 2024-12-05 16:58 | XMS_ITS | Encounter Summary ---
Author Organization [facility] Address [address] [place] [address] Care Team Providers Care Baseball Scout Name Role Phone Lul Lou MD Primary Care Provider Unavailab Salomón Cummings MD Primary Care Provider Unavail able Hawa Torres MD Primary Care Provider Unavaila Hawa Maddox MD Primary Care Provider Unavaila Taya Covington MD Unavailable [phone] Chandan Breen Unavailable Rancho Matthews MD Primary Care Provider [phone] [facility], Pcp Primary Care Provider UnavailRancho Brock MD Primary Care Provider [phone] Hawa Torres MD Primary Care Provider [...] Provider Unavaila ble Jessi Erwin DNP Unavailable [phone] Encounter Details Date Type Department Care Team Description 08/05/2012 Cruise Counselor Report Medical Records [address] [place] [address] Danielle May Social History Tobacco Use Types [...] on filedocumented in this encounter Care Teams Baseball Scout Relationship Specialty Start Date End Date Lul Lou MD PCP - General Internal Medicine 05/16/12 06/06/14 Salomón Lou MD PCP - General Internal Medicine 09/01/14 09/08/15 Hawa Torres MD PCP - General Internal Medicine 09/09/15 12/19/20 Hawa Torres MD PCP - General 06/07/14 08/31/14 Rancho Matthews MD [address] [place] [address] PCP - General Internal Medicine 12/20/20 03/22/21 [facility], [address] [address] PCP - General Internal Medicine 03/23/21 04/11/21 Rancho Matthews MD [address] [place] [address] 01809 PCP - General Internal Medicine 04/12/21 04/12/21 Hawa Torrse MD [address] [place] [address] 77115 PCP - General Internal Medicine 04/13/21 06/05/21 Hawa Torres MD [address] [place] [address] 14100 PCP - General Internal Medicine 06/06/21 08/07/21 [facility], [address] [address] PCP - General Internal Medicine 08/08/21 10/27/21 Hawa Torres MD PCP - General Internal Medicine 10/28/21 04/11/22 [facility], Pcp [address] [place] [address] 84001 PCP - General Internal Medicine 04/12/22 05/01/22 Hawa Torres MD [address] [place] [address] 96886 PCP - General Internal Medicine 05/02/22 05/21/22 Melonie Sorensen, [address] [place] [address] 85205 PCP - General Internal Medicine 05/22/22 09/07/22 [facility], Pcp [address] [place] [address] 48195 PCP - General Internal Medicine 09/08/22 11/08/22 Hawa Torres MD [address] [place] [address] 11622 PCP - General Internal Medicine 11/09/22 Taya Gonzales MD Specialist Cardiology 11/01/20 Chandan Breen PA Specialist Cardiology 11/01/20 02/20/24 Jessi Erwin DNP [address] [place] [address] 40773 Specialist Nurse Practitioner [facility] 02/21/24 documented as of this encounter
--- OUTSIDE RECORDS SUMMARY | 2024-12-05 16:58 | XMS_ITS | Encounter Summary ---
Author Organization [facility] Address [address] [place] [address] Care Team Providers Care Ivory Carver Name Role Phone Hawa Torres MD Primary Care Provider UnavailTaya Lira MD Unavailable [phone] Chandan Breen Unavailable + Rancho Matthews MD Primary Care Provider + [facility], [facility] Primary Care Provider UnavailRancho Brock MD Primary Care Provider [phone] Hawa Torres MD Primary Care Provider Unavaila Hawa Maddox MD Primary Care Provider Unavaila elpidio [facility], Pcp Primary Care Provider Hawa Zavala MD Primary Care Provider Unavaila ble [facility], Pcp Primary Care Provider Hawa Zavala MD Primary Care Provider Unavaila Melonie Rojas DO Primary Care Pro vider Unavailable [facility], Pcp Primary Care Provider Hawa Zavala MD Primary Care Provider Unavaila Jessi Cagle [facility] Unavailable + [phone] Encounter Details Date Type Department Care Team Description 11/23/2020 Hospital Medical Records [address] [place], [place] [id number] [place] [address] Social History Tobacco Use Types Packs/Day Years [...] on filedocumented in this encounter Care Teams Ivory Carver Relationship Specialty Start Date End Date Hawa Torres MD PCP - General Internal Medicine 09/09/15 12/19/20 Rancho Matthews MD [address] [place] [address]83 PCP - General Internal Medicine 12/20/20 03/22/[address] [address] PCP - General Internal Medicine 03/23/21 04/11/21 Rancho Matthews MD [address] [place] [address] 81392 PCP - General Internal Medicine 04/12/21 04/12/21 Hawa Torres MD [address] [place] [address] 82363 PCP - General Internal Medicine 04/13/21 06/05/21 Hawa Torres MD [address] [place] [address] 61631 PCP - General Internal Medicine 06/06/21 08/07/21 [facility], Pcp [address] [place] [address] 24854 PCP - General Internal Medicine 08/08/21 10/27/21 Hawa Torres MD PCP - General Internal Medicine 10/28/21 04/11/22 [facility], Pcp [address] [place] [address] 43059 PCP - General Internal Medicine 04/12/22 05/01/22 Hawa Torres MD [address] [place] [address] 15185 PCP - General Internal Medicine 05/02/22 05/21/22 Melonie Sorensen DO [address] [place] [address] 04012 PCP - General Internal Medicine 05/22/22 09/07/22 [facility], Pcp [address] [place] [address] 70754 PCP - General Internal Medicine 09/08/22 11/08/22 Hawa Torres MD [address] [place] [address] 89061 PCP - General Internal Medicine 11/09/22 Taya Gonzales MD Specialist Cardiology 11/01/20 Chandan Breen PA Specialist Cardiology 11/01/20 02/20/24 Jessi Erwin DNP [address] [place] [address] 16314 Specialist Nurse Practitioner [facility] 02/21/24 documented as of this encounter
--- OUTSIDE RECORDS SUMMARY | 2024-12-05 16:58 | XMS_ITS | Encounter Summary ---
Author Organization [facility] Address [address] [place] [address] Care Team Providers Care Hot Press Operator Name Role Phone Taya Gonzales MD Unavailable [phone] Chandan Breen Unavailable + Rancho Matthews MD Primary Care Provider [phone] [facility], Pcp Primary Care Provider UnavailRancho Brock MD Primary Care Provider [phone] Hawa Torres MD Primary Care Provider Unavaila [...] Primary Care Provider Unavaila ble Jessi Erwin [facility] Unavailable [phone] Encounter Details Date Type Department Care Team Description 02/28/2021 [facility] Medical Records [address] [place] [address] Abstract, Provider Social History Tobacco Use Types [...] on filedocumented in this encounter Care Teams Hot Press Operator Relationship Specialty Start Date End Date Rancho Matthews MD [address] [place] [address] PCP - General Internal Medicine 12/20/20 03/22/21 [facility], Pcp [address] [place], [place] [phone] PCP - General Internal Medicine 03/23/21 04/11/21 Rancho Matthews MD [address] [place] [address] PCP - General Internal Medicine 04/12/21 04/12/21 Hawa Torres MD [address] [place] [address] 06132 PCP - General Internal Medicine 04/13/21 06/05/21 Hawa Torres MD [address] [place] [address] 96978 PCP - General Internal Medicine 06/06/21 08/07/21 [facility], [address] [address] PCP - General Internal Medicine 08/08/21 10/27/21 Hawa Torres MD [address] [place] [address] 29156 PCP - General Internal Medicine 10/28/21 04/11/22 [facility], Pcp [address] [place] [address] 69858 PCP - General Internal Medicine 04/12/22 05/01/22 Hawa Torres MD [address] [place] [address] 70808 PCP - General Internal Medicine 05/02/22 05/21/22 Melonie Sorensen DO [address] [place] [address] 88087 PCP - General Internal Medicine 05/22/22 09/07/22 [facility], Pcp [address] [place] [address] 06529 PCP - General Internal Medicine 09/08/22 11/08/22 Hawa Torres MD [address] [place] [address] 86050 PCP - General Internal Medicine 11/09/22 Taya Gonzales MD Specialist Cardiology 11/01/20 Chandan Breen PA Specialist Cardiology 11/01/20 02/20/24 Jessi Erwin, KITTY [address] [place] [address] 72664 Specialist Nurse Practitioner [facility] 02/21/24 documented as of this encounter
--- OUTSIDE RECORDS SUMMARY | 2024-12-05 16:58 | XMS_ITS | Encounter Summary ---
Author Organization [facility] Address [address] [place] [address] Care Team Providers Care Chief Supply Chain Officer Name Role Phone Taya Gonzales MD Unavailable [phone] Chandan Breen Unavailable Rancho Matthews MD Primary Care Provider [phone] [facility], Pcp Primary Care Provider UnavailRancho Brock MD Primary Care Provider [phone] Hawa Torres MD Primary Care Provider Unavaila Hawa Maddox MD Primary Care Provider Unavaila ble [facility], Pcp Primary Care Provider UnavailHawa Barron MD Primary Care Provider Unavaila ble [facility], Pcp Primary Care Provider UnavailHawa Barron MD Primary Care Provider Unavaila ble Melonie Sorensen DO Primary Care Pro vider Unavailable [facility], Pcp Primary Care Provider UnavailHawa Barron MD Primary Care Provider Unavaila ble Jessi Erwin [facility] Unavailable [phone] Reason for Visit * Reason Onset Date Comments Faxed Order 12/21/2020 Encounter Details Date Type Department Care Team Description 12/21/2020 Telephone Adult Medicine [address] [phone] Rancho Matthews MD [address] [place] [address] Faxed Order Social History Tobacco Use [...] on filedocumented in this encounter Care Teams Chief Supply Chain Officer Relationship Specialty Start Date End Date Rancho Matthews MD [address] [place] [address] 27427 PCP - General Internal Medicine 12/20/20 03/22/21 [facility], Pcp [address] [place] [address] 59974 PCP - General Internal Medicine 03/23/21 04/11/21 Rancho Matthews MD [address] [place] [address] 11971 PCP - General Internal Medicine 04/12/21 04/12/21 Hawa Torres MD [address] [place] [address] 18464 PCP - General Internal Medicine 04/13/21 06/05/21 Hawa Torres MD [address] [place] [address] 48268 PCP - General Internal Medicine 06/06/21 08/07/21 [facility], Pcp [address] [place] [address] 89508 PCP - General Internal Medicine 08/08/21 10/27/21 Hawa Torres MD [address] [place] [address] 07473 PCP - General Internal Medicine 10/28/21 04/11/22 [facility], Pcp [address] [place] [address] 13757 PCP - General Internal Medicine 04/12/22 05/01/22 Hawa Torres MD [address] [place] [address] 41761 PCP - General Internal Medicine 05/02/22 05/21/22 Melonie Sorensen, DO [address] [place] [address] 00354 PCP - General Internal Medicine 05/22/22 09/07/22 [facility], Pcp [address] [place] [address] 71507 PCP - General Internal Medicine 09/08/22 11/08/22 Hawa Torres MD [address] [place] [address] 55807 PCP - General Internal Medicine 11/09/22 Taya Gonzales MD Specialist Cardiology 11/01/20 Chandan Breen PA Specialist Cardiology 11/01/20 02/20/24 Jessi Erwin DNP [address] [place] [address] 64397 Specialist Nurse Practitioner Family 02/21/24 documented as of this encounter
--- OUTSIDE RECORDS SUMMARY | 2024-12-05 16:58 | XMS_ITS | Encounter Summary ---
Author Organization [facility] Address [address] [place] [address] Care Team Providers Care Chef Broiler Or Fry Name Role Phone Taya Gonzales MD Unavailable [phone] Chandan Breen Unavailable Rancho Matthews MD Primary Care Provider [phone] [facility], Pcp Primary Care Provider UnavailRancho Brock MD Primary Care Provider [phone] Hawa Torres MD Primary Care Provider Unavaila Hawa Maddox MD Primary Care Provider Unavaila ble [facility], Pcp Primary Care Provider UnavailHawa Barron MD Primary Care Provider Unavaila ble [facility], Pcp Primary Care Provider UnavailHawa Barron MD Primary Care Provider Unavaila ble Melonie Sorensen DO Primary Care Pro vider Unavailable [facility], Pcp Primary Care Provider UnavailHawa Barron MD Primary Care Provider Unavaila ble Jessi Erwin [facility] Unavailable [phone] Reason for Visit * Reason Onset Date Comments medication problems 01/24/2021 Encounter Details Date Type Department Care Team Description 01/24/2021 Telephone Adult Medicine [address] [address] Rancho Matthews MD [address] [place] [address] medication problems Social History Tobacco Use [...] EDT Who is calling? A pharmacist: Pharmacy: [facility] Pharmacy Name of the medication Blood [...] on filedocumented in this encounter Care Teams Chef Broiler Or Fry Relationship Specialty Start Date End Date Rancho Matthews MD [address] [place] [address] PCP - General Internal Medicine 12/20/20 03/22/21 [facility], Pcp [address] [place] [address] 34850 PCP - General Internal Medicine 03/23/21 04/11/21 Rancho Matthews MD [address] [place] [address] 47954 PCP - General Internal Medicine 04/12/21 04/12/21 Hawa Torres MD [address] [place] [address] 14926 PCP - General Internal Medicine 04/13/21 06/05/21 Hawa Torres MD [address] [place] [address] 14262 PCP - General Internal Medicine 06/06/21 08/07/21 [facility], Pcp [address] [place] [address] 95137 PCP - General Internal Medicine 08/08/21 10/27/21 Hawa Torres MD [address] [place] [address] 50908 PCP - General Internal Medicine 10/28/21 04/11/22 [facility], Pcp [address] [place] [address] 72197 PCP - General Internal Medicine 04/12/22 05/01/22 Hawa Torres MD [address] [place] [address] 43967 PCP - General Internal Medicine 05/02/22 05/21/22 Melonie Sorensen, DO [address] [place] [address] 82024 PCP - General Internal Medicine 05/22/22 09/07/22 [facility], Pcp [address] [place] [address] 19813 PCP - General Internal Medicine 09/08/22 11/08/22 Hawa Torres MD [address] [place] [address] 83600 PCP - General Internal Medicine 11/09/22 Taya Gonzales MD Specialist Cardiology 11/01/20 Chandan Breen PA Specialist Cardiology 11/01/20 02/20/24 Jessi Erwin DNP [address] [place] [address] 84861 Specialist Nurse Practitioner Family 02/21/24 documented as of this encounter
--- OUTSIDE RECORDS SUMMARY | 2024-12-05 16:58 | XMS_ITS | Encounter Summary ---
Author Organization [facility] Address [address] [place] [address] Care Team Providers Care Training Systems Officer Name Role Phone Taya Gonzales MD Unavailable [phone] Chandan Breen Unavailable Melonie Sorensen DO Primary Care Pro vider Unavailable [facility], Pcp Primary Care Provider UnavailHawa Barron MD Primary Care Provider UnavailJessi Hogan DNP Unavailable [phone] Encounter Details Date Type Department Care Team Description 08/22/2022 [facility] [address] [place] [address] 39870 Abstract, Provider Social History Tobacco Use Types [...] on filedocumented in this encounter Care Teams Training Systems Officer Relationship Specialty Start Date End Date Melonie Sorensen DO PCP - General Internal Medicine 05/22/22 09/07/22 [facility], [facility] PCP - General Internal Medicine 09/08/22 11/08/22 Hawa Torres MD PCP - General Internal Medicine 11/09/22 Taya Gonzales MD Specialist Cardiology 11/01/20 Chandan Breen PA Specialist Cardiology 11/01/20 02/20/24 Jessi Erwin DNP Specialist Nurse Practitioner Family 02/21/24 documented as of this encounter
--- OUTSIDE RECORDS SUMMARY | 2024-12-05 16:58 | XMS_ITS | Encounter Summary ---
Author Organization [facility] Address [address] [place] [address] Care Team Providers Care Chain Maker Machine Name Role Phone Hawa Torres MD Primary Care Provider UnavailTaya Lira MD Unavailable + Chandan Breen Unavailable + Rancho Matthews MD Primary Care Provider + [facility], Pcp Primary Care Provider UnavailRancho Brock MD Primary Care Provider + Hawa Torres MD Primary Care Provider Unavaila Hawa Maddox MD Primary Care Provider Unavaila elpidio [facility], Pcp Primary Care Provider UnavailHawa Barron MD Primary Care Provider Unavaila ble [facility], Pcp Primary Care Provider Hawa Zavala MD Primary Care Provider Unavaila Melonie Rojas DO Primary Care Pro vider Unavailable [facility], Pcp Primary Care Provider UnavailHawa Barron MD Primary Care Provider Unavaila Jessi Cagle [facility] Unavailable + Encounter Details Date Type Department Care Team Description 12/02/2020 [facility] Medical Records [address] [place] [address] Rancho Matthews MD [address] [place] [address] [phone] Social History Tobacco Use Types Packs/Day Years [...] on filedocumented in this encounter Care Teams Chain Maker Machine Relationship Specialty Start Date End Date Hawa Torres MD PCP - General Internal Medicine 09/09/15 12/19/20 Rancho Matthews MD [address] [place] [address] 6[address]11 PCP - General Internal Medicine 12/20/20 03/22/21 [facility], [address] [address] PCP - General Internal Medicine 03/23/21 04/11/21 Rancho Matthews MD [address] [place] [address] 13637 PCP - General Internal Medicine 04/12/21 04/12/21 Hawa Torres MD [address] [place] [address] 85988 PCP - General Internal Medicine 04/13/21 06/05/21 Hawa Torres MD [address] [place] [address] PCP - General Internal Medicine 06/06/21 08/07/21 [facility], Pcp [address] [place] [address] 19370 PCP - General Internal Medicine 08/08/21 10/27/21 Hawa Torres MD PCP - General Internal Medicine 10/28/21 04/11/22 [facility], Pcp [address] [place] [address] 34390 PCP - General Internal Medicine 04/12/22 05/01/22 Hawa Torres MD [address] [place] [address] PCP - General Internal Medicine 05/02/22 05/21/22 Melonie Sorensen, DO [address] [place] [address] PCP - General Internal Medicine 05/22/22 09/07/22 [facility], Pcp [address] [place] [address] PCP - General Internal Medicine 09/08/22 11/08/22 Hawa Torres MD [address] [place] [address] PCP - General Internal Medicine 11/09/22 Taya Gonzales MD Specialist Cardiology 11/01/20 Chandan Breen PA Specialist Cardiology 11/01/20 02/20/24 Jessi Erwin DNP [address] [place] [address] Specialist Nurse Practitioner [facility] 02/21/24 documented as of this encounter
--- OUTSIDE RECORDS SUMMARY | 2024-12-05 16:58 | XMS_ITS | Encounter Summary ---
Author Organization [facility] Address [address] [place] [address] Care Team Providers Care Knitting Machine Fixer Head Name Role Phone Taya Gonzales MD Unavailable [phone] Chandan Breen Unavailable Rancho Matthews MD Primary Care Provider [phone] [facility], Pcp Primary Care Provider UnavailRancho Brock MD Primary Care Provider [phone] Hawa Torres MD Primary Care Provider Unavaila Hawa Maddox MD Primary Care Provider Unavaila ble [facility], Pcp Primary Care Provider UnavailHawa Barron MD Primary Care Provider Unavaila ble [facility], Pcp Primary Care Provider UnavailHawa Barron MD Primary Care Provider Unavaila ble Melonie Sorensen DO Primary Care Pro vider Unavailable [facility], Pcp Primary Care Provider UnavailHawa Barron MD Primary Care Provider Unavaila ble Jessi Erwin [facility] Unavailable [phone] Reason for Visit * Reason Comments Remote Device Check Encounter Details Date Type Department Care Team Description 01/24/2021 Remote Device Check Cardio PVC POC [phone] [address] Kaz Salgado MD 300 [facility] [address] [place] [address] Chronic systolic heart failure (HCC) (Primary Dx) Social History Tobacco Use Types [...] as of this encounter Progress Notes * Kaz Salgado MD - 01/27/2021 6:37 PM EDT See interrogation details in attached report. Electronically Signed By: Kaz Salgado 01/27/2021 6:37 PM documented in this encounter Plan of Treatment Not on file documented as of this encounter Procedures Procedure Name Priority Date/Time Associated Diagnosis Comments PVCA REMOTE ICM Routine 01/24/2021 Chronic systolic heart failure (HCC) documented in this encounter Results * PV[facility] REMOTE ICM (01/24/2021) 01/24/2021 Impressions [facility] - 01/24/2021 See scanned report Kaz Salgado MD CARDIOLOGY [facility] documented in this encounter Visit Diagnoses Diagnosis Chronic systolic heart failure (HCC)- Primary Chronic systolic heart failure documented in this encounter Care Teams Knitting Machine Fixer Head Relationship Specialty Start Date End Date Rancho Matthews MD [address] [place] [address] 43653 PCP - General Internal Medicine 12/20/20 03/22/21 [facility], Pcp [address] [place] [address] 98944 PCP - General Internal Medicine 03/23/21 04/11/21 Rancho Matthews MD [address] [place] [address] 27465 PCP - General Internal Medicine 04/12/21 04/12/21 Hawa Torres MD [address] [place] [address] 77076 PCP - General Internal Medicine 04/13/21 06/05/21 Hawa Torres MD [address] [place] [address] 83379 PCP - General Internal Medicine 06/06/21 08/07/21 [facility], Pcp [address] [place] [address] 62552 PCP - General Internal Medicine 08/08/21 10/27/21 Hawa Torres MD [address] [place] [address] 27509 PCP - General Internal Medicine 10/28/21 04/11/22 [facility], Pcp [address] [place] [address] 55483 PCP - General Internal Medicine 04/12/22 05/01/22 Hawa Torres MD [address] [place] [address] 64806 PCP - General Internal Medicine 05/02/22 05/21/22 Melonie Sorensen, DO [address] [place] [address] 70853 PCP - General Internal Medicine 05/22/22 09/07/22 [facility], Pcp [address] [place] [address] 91555 PCP - General Internal Medicine 09/08/22 11/08/22 Hawa Torres MD [address] [place] [address] 88195 PCP - General Internal Medicine 11/09/22 Taya Gonzales MD Specialist Cardiology 11/01/20 Chandan Breen PA Specialist Cardiology 11/01/20 02/20/24 Jessi Erwin, DNP [address] [place] [address] Specialist Nurse Practitioner Family 02/21/24 documented as of this encounter
--- OUTSIDE RECORDS SUMMARY | 2024-12-05 16:58 | XMS_ITS | Encounter Summary ---
Author Organization [facility] Address [address] [place] [address] Care Team Providers Care Cloth Colorer Name Role Phone Hawa Torres MD Primary [...] Unavaila Jessi Cagle [facility] Unavailable [phone] Encounter Details Date Type Department Care Team Description 11/23/2020 [facility] Medical Records [address] [place] [address] Abstract, Provider Social History Tobacco Use Types [...] on filedocumented in this encounter Care Teams Cloth Colorer Relationship Specialty Start Date End Date Hawa Torres MD PCP - General Internal Medicine 09/09/15 12/19/20 Rancho Matthews MD [address] [place] [address] 31479 PCP - General Internal Medicine 12/20/20 03/22/21 [facility], Pcp [address] [place] [address] 84427 PCP - General Internal Medicine 03/23/21 04/11/21 Rancho Matthews MD [address] [place] [address] 09476 PCP - General Internal Medicine 04/12/21 04/12/21 Hawa Torres MD [address] [place] [address] 04685 PCP - General Internal Medicine 04/13/21 06/05/21 Hawa Torres MD [address] [place] [address] 29047 PCP - General Internal Medicine 06/06/21 08/07/21 [facility], Pcp [address] [place] [address] 74909 PCP - General Internal Medicine 08/08/21 10/27/21 Hawa Torres MD PCP - General Internal Medicine 10/28/21 04/11/22 [facility], Pcp [address] [place] [address] 08197 PCP - General Internal Medicine 04/12/22 05/01/22 Hawa Torres MD [address] [place] [address] 71032 PCP - General Internal Medicine 05/02/22 05/21/22 Melonie Sorensen DO [address] [place] [address] 33342 PCP - General Internal Medicine 05/22/22 09/07/22 [facility], Pcp [address] [place] [address] 36954 PCP - General Internal Medicine 09/08/22 11/08/22 Hawa Torres MD [address] [place] [address] 70540 PCP - General Internal Medicine 11/09/22 Taya Gonzales MD Specialist Cardiology 11/01/20 Chandan Breen PA Specialist Cardiology 11/01/20 02/20/24 Jessi Erwin, KITTY [address] [place] [address] Specialist Nurse Practitioner [facility] 02/21/24 documented as of this encounter
--- OUTSIDE RECORDS SUMMARY | 2024-12-05 16:58 | XMS_ITS | Encounter Summary ---
Author Organization [facility] Address [address] [place] [address] Care Team Providers Care Electric Cutter Operator Name Role Phone Hawa Torres MD Primary Care Provider Unavaila Taya Covington MD Unavailable [phone] Chandan Breen Unavailable Rancho Matthews MD Primary Care Provider [phone] [facility], Pcp Primary Care Provider UnavailRancho Brock MD Primary Care Provider [phone] Hawa Torres MD Primary Care Provider Unavaila Hawa Maddox MD Primary Care Provider Unavaila elpidio [facility], Pcp Primary Care Provider Hawa Zavala MD Primary Care Provider Unavaila ble [facility], Pcp Primary Care Provider Hawa Zavala MD Primary Care Provider Unavaila ble Melonie Sorensen DO Primary Care Pro vider Unavailable [facility], Pcp Primary Care Provider Hawa Zavala MD Primary Care Provider Unavaila Jessi Cagle [facility] Unavailable [phone] Encounter Details Date Type Department Care Team Description 04/24/2016 Orders Only Adult Medicine [address] [address] Hawa oTrres MD Hypothyroidism, unspecified hypothyroidism type (Primary Dx) [...] - 4.00 uIU/ml 04/24/2016 3:57 PM EDT [facility] 04/24/2016 11:1 9 AM EDT 04/24/2016 11:19 AM EDT Hawa Torres MD LAB [address] documented in this encounter Visit Diagnoses Diagnosis Hypothyroidism, unspecified hypothyroidism type- Primary documented in this encounter Care Teams Electric Cutter Operator Relationship Specialty Start Date End Date Hawa Torres MD PCP - General Internal Medicine 09/09/15 12/19/20 Rancho Matthews MD [address] [place] [address]779 PCP - General Internal Medicine 12/20/20 03/22/21 [facility], [address] [address] PCP - General Internal Medicine 03/23/21 04/11/21 Rancho Matthews MD [address] [place] [address] 40935 PCP - General Internal Medicine 04/12/21 04/12/21 Hawa Torres MD [address] [place] [address] 94552 PCP - General Internal Medicine 04/13/21 06/05/21 Hawa Torres MD [address] [place] [address] PCP - General Internal Medicine 06/06/21 08/07/21 [facility], Pcp [address] [place] [address] PCP - General Internal Medicine 08/08/21 10/27/21 Hawa Torres MD PCP - General Internal Medicine 10/28/21 04/11/22 [facility], Pcp [address] [place] [address] PCP - General Internal Medicine 04/12/22 05/01/22 Hawa Torres MD [address] [place] [address] PCP - General Internal Medicine 05/02/22 05/21/22 Melonie Sorensen, [address] [place] [address] PCP - General Internal Medicine 05/22/22 09/07/22 [facility], Pcp [address] [place] [address] PCP - General Internal Medicine 09/08/22 11/08/22 Hawa Torres MD [address] [place] [address] PCP - General Internal Medicine 11/09/22 Taya Gonzales MD Specialist Cardiology 11/01/20 Chandan Breen PA Specialist Cardiology 11/01/20 02/20/24 Jessi Erwin DNP [address] [place] [address] Specialist Nurse Practitioner [facility] 02/21/24 documented as of this encounter
--- OUTSIDE RECORDS SUMMARY | 2024-12-05 16:58 | XMS_ITS | Encounter Summary ---
Author Organization [facility] Address [address] [place] [address] Care Team Providers Care Photo Print Specialist Name Role Phone Taya Gonzales MD Unavailable [phone] Chandan Breen Unavailable Melonie Sorensen DO Primary Care Pro vider Unavailable [facility], Pcp Primary Care Provider UnavailHawa Barron MD Primary Care Provider UnavailJessi Hogan DNP Unavailable [phone] Encounter Details Date Type Department Care Team Description 08/29/2022 [facility] Medical Records [address] [place] [address] Social History Tobacco Use Types Packs/Day Years [...] on filedocumented in this encounter Care Teams Photo Print Specialist Relationship Specialty Start Date End Date Melonie Sorensen DO PCP - General Internal Medicine 05/22/22 09/07/22 [facility], [facility] PCP - General Internal Medicine 09/08/22 11/08/22 Hawa Torres MD PCP - General Internal Medicine 11/09/22 Taya Gonzales MD Specialist Cardiology 11/01/20 Chandan Breen PA Specialist Cardiology 11/01/20 02/20/24 Jessi Erwin DNP Specialist Nurse Practitioner Family 02/21/24 documented as of this encounter
--- OUTSIDE RECORDS SUMMARY | 2024-12-05 16:58 | XMS_ITS | Encounter Summary ---
Author Organization [facility] Address [address] [place] [address] Care Team Providers Care Barge Loader Name Role Phone Taya Gonzales MD Unavailable + Chandan Breen Unavailable + Rancho Matthews MD Primary Care Provider + [facility], Pcp Primary Care Provider UnavailRancho Brock MD Primary Care Provider + Hawa Torres MD Primary Care Provider Unavaila Hawa Maddox MD Primary Care Provider Unavaila ble [facility], Pcp Primary Care Provider UnavailHawa Barron MD Primary Care Provider Unavaila ble [facility], Pcp Primary Care Provider Hawa Zavala MD Primary Care Provider Unavaila ble Melonie Sorensen DO Primary Care Pro vider Unavailable [facility], Pcp Primary Care Provider UnavailHawa Barron MD Primary Care Provider Unavaila ble Jessi Erwin [facility] Unavailable [phone] Encounter Details Date Type Department Care Team Description 03/08/2021 Refill Medicine/Pediatrics - [address] [address] Hawa Torres MD Social History Tobacco Use [...] on filedocumented in this encounter Care Teams Barge Loader Relationship Specialty Start Date End Date Rancho Matthews MD [address] [place] [address] PCP - General Internal Medicine 12/20/20 03/22/21 [facility], Pcp [address] [place] [address]15 PCP - General Internal Medicine 03/23/21 04/11/21 Rancho Matthews MD [address] [place] [address] 25595 PCP - General Internal Medicine 04/12/21 04/12/21 Hawa Torres MD [address] [place] [address], [place] [address] PCP - General Internal Medicine 04/13/21 06/05/21 Hawa Torres MD [address] [place] [address], [place] [address] PCP - General Internal Medicine 06/06/21 08/07/21 [facility], Pcp [address] [place] [address], [place] [address] PCP - General Internal Medicine 08/08/21 10/27/21 Hawa Torres MD [address] [place] [address], [place] [address] PCP - General Internal Medicine 10/28/21 04/11/22 [facility], Pcp [address] [place] [address], [place] [address] PCP - General Internal Medicine 04/12/22 05/01/22 Hawa Torres MD [address] [place] [address], [place] [address] PCP - General Internal Medicine 05/02/22 05/21/22 Melonie Sorensen, DO [address] [place] [address], [place] [address] PCP - General Internal Medicine 05/22/22 09/07/22 [facility], Pcp [address] [place] [address], [place] [address] PCP - General Internal Medicine 09/08/22 11/08/22 Hawa Torres MD [address] [place] [address], [place] [address] PCP - General Internal Medicine 11/09/22 Taya Gonzales MD Specialist Cardiology 11/01/20 Chandan Breen PA Specialist Cardiology 11/01/20 02/20/24 Jessi Erwin DNP [address] [place] [address], [place] [address] Specialist Nurse Practitioner Family 02/21/24 documented as of this encounter
--- OUTSIDE RECORDS SUMMARY | 2024-12-05 16:58 | XMS_ITS | Encounter Summary ---
Author Organization [facility] Address [address] [place] [address] Care Team Providers Care Lawn Care Specialist Name Role Phone Taya Gonzales MD Unavailable [phone] Chandan Breen Unavailable Rancho Matthews MD Primary Care Provider [phone] [facility], Pcp Primary Care Provider UnavailRancho Brock MD Primary Care Provider [phone] Hawa Torres MD Primary Care Provider Unavaila [...] Primary Care Provider Unavaila ble Jessi Erwin [facility] Unavailable [phone] Reason for Visit * Reason Onset Date Comments Faxed Refill 02/08/2021 Encounter Details Date Type Department Care Team Description 02/08/2021 Refill Adult Medicine [address] [id number] Rancho Matthews MD [address] [place] [address] [phone] Faxed Refill Social History Tobacco Use Types [...] Telephone Encounter - Jessica Abreu M.A. - 02/08/2021 11:04 AM EDT Lab Results Component Value Date CHOL 138 06/25/2020 LDL 54 06/25/2020 HDL 55 06/25/2020 TRIG 145 06/25/2020 SGOT 17 06/25/2020 SGPT 23 06/25/2020 Last appt with pcp 01/31/21 * Telephone Encounter - Michelle Cotton - 02/08/2021 11:03 AM EDT Patient would like script to be: E-PRESCRIBED/FAXED TO PHARMACY WHEN WAS THE PATIENT'S LAST APPOINTMENT IN ADULT MEDICINE? 01/31/2021 WHEN WAS THE LAST TIME THE PATIENT SAW THEIR PCP? Same as above Does patient have an upcoming appointment? No[facility] to refill [...] Patients current insurance carrier is: Payor: [employer]FS / Plan: [employer] MEDICARE PREMIUM $10 [place] / Product Type: MEDICARE [id number] documented in this encounter Plan of Treatment Not on file documented as of this encounter Visit Diagnoses Not on filedocumented in this encounter Care Teams Lawn Care Specialist Relationship Specialty Start Date End Date Rancho Matthews MD [address] [place] [address] PCP - General Internal Medicine 12/20/20 03/22/21 [facility], Pcp [address] [place] [address] 11353 PCP - General Internal Medicine 03/23/21 04/11/21 Rancho Matthews MD [address] [place] [address] 80229 PCP - General Internal Medicine 04/12/21 04/12/21 Hawa Torres MD [address] [place] [address] 49620 PCP - General Internal Medicine 04/13/21 06/05/21 Hawa Torres MD [address] [place] [address] 65598 PCP - General Internal Medicine 06/06/21 08/07/21 [facility], Pcp [address] [place] [address] 28228 PCP - General Internal Medicine 08/08/21 10/27/21 Hawa Torres MD [address] [place] [address] 46749 PCP - General Internal Medicine 10/28/21 04/11/22 [facility], Pcp [address] [place] [address] 60964 PCP - General Internal Medicine 04/12/22 05/01/22 Hawa Torres MD [address] [place] [address] 29594 PCP - General Internal Medicine 05/02/22 05/21/22 Melonie Sorensen DO [address] [place] [address] 26359 PCP - General Internal Medicine 05/22/22 09/07/22 [facility], Pcp [address] [place] [address] 60441 PCP - General Internal Medicine 09/08/22 11/08/22 Hawa Torres MD [address] [place] [address] 19359 PCP - General Internal Medicine 11/09/22 Taya Gonzales MD Specialist Cardiology 11/01/20 Chandan Breen PA Specialist Cardiology 11/01/20 02/20/24 Jessi Erwin, KITTY [address] [place] [address] 13445 Specialist Nurse Practitioner [facility] 02/21/24 documented as of this encounter
--- OUTSIDE RECORDS SUMMARY | 2024-12-05 16:58 | XMS_ITS | Encounter Summary ---
Author Organization [facility] Address [address] [place] [address] Care Team Providers Care Hedis Specialist Name Role Phone Lul Lou MD Primary Care Provider Unavailab Lul Cummings MD Primary Care Provider UnavailSalomón Garibay MD Primary Care Provider Unavail able Hawa Torres MD Primary Care Provider Unavaila Hawa Maddox MD Primary Care Provider Unavaila Taya Covington MD Unavailable [phone] Chandan Breen Unavailable Rancho Matthews MD Primary Care Provider [phone] [facility], Pcp Primary Care Provider UnavailRancho Brock MD Primary Care Provider [phone] Hawa Torres MD Primary Care Provider Unavaila Hawa Maddox MD Primary Care Provider Unavaila ble [facility], Pcp Primary Care Provider UnavailHawa Barron MD Primary Care Provider Unavaila ble [facility], Pcp Primary Care Provider UnavailHawa Barron MD Primary Care Provider Unavaila ble Melonie Sorensen DO Primary Care Pro vider Unavailable Community, Pcp Primary Care Provider UnavailHawa Barron MD Primary Care Provider Unavaila ble Jessi Erwin DNP Unavailable [phone] Encounter Details Date Type Department Care Team Description 08/10/2011 Instant Printer Operator Report Medical Records [address] [place] [address] Reed Houston MD Social History Tobacco Use [...] on filedocumented in this encounter Care Teams Hedis Specialist Relationship Specialty Start Date End Date Lul Lou MD PCP - General Internal Medicine 04/29/12 05/15/12 Lul Lou MD PCP - General Internal Medicine 05/16/12 06/06/14 Salomón Lou MD PCP - General Internal Medicine 09/01/14 09/08/15 Hawa Torres MD PCP - General Internal Medicine 09/09/15 12/19/20 Hawa Torres MD PCP - General 06/07/14 08/31/14 Rancho Matthews MD [address] [place] [address] 83081 PCP - General Internal Medicine 12/20/20 03/22/21 [facility], [address] [address] PCP - General Internal Medicine 03/23/21 04/11/21 Rancho Matthesw MD [address] [place] [address] 84785 PCP - General Internal Medicine 04/12/21 04/12/21 Hawa Torres MD [address] [place] [address] 43540 PCP - General Internal Medicine 04/13/21 06/05/21 Hawa Torres MD [address] [place] [address] 18800 PCP - General Internal Medicine 06/06/21 08/07/21 [facility], [address] [place] [address] PCP - General Internal Medicine 08/08/21 10/27/21 Hawa Torres MD PCP - General Internal Medicine 10/28/21 04/11/22 [facility], Pcp [address] [place] [address] 73084 PCP - General Internal Medicine 04/12/22 05/01/22 Hawa Torres MD [address] [place] [address] 12960 PCP - General Internal Medicine 05/02/22 05/21/22 Melonie Sorensen, [address] [place] [address] 78811 PCP - General Internal Medicine 05/22/22 09/07/22 [facility], Pcp [address] [place] [address] 83067 PCP - General Internal Medicine 09/08/22 11/08/22 Hawa Torres MD [address] [place] [address] 19270 PCP - General Internal Medicine 11/09/22 Taya Gonzales MD Specialist Cardiology 11/01/20 Chandan Breen PA Specialist Cardiology 11/01/20 02/20/24 Jessi Erwin DNP [address] [place] [address] 12150 Specialist Nurse Practitioner Family 02/21/24 documented as of this encounter
--- OUTSIDE RECORDS SUMMARY | 2024-12-05 16:58 | XMS_ITS | Encounter Summary ---
Author Organization [facility] Address [address] [place] [address] Care Team Providers Care Public Interviewer Name Role Phone Hawa Torres MD Primary Care Provider UnavailTaya Lira MD Unavailable [phone] Chandan Breen Unavailable Rancho Matthews MD Primary Care Provider + [facility], [facility] Primary Care Provider UnavailRancho Brock MD Primary Care Provider [phone] Hawa Torres MD Primary Care Provider Unavaila Hawa Maddox MD Primary Care Provider Unavaila elpidio [facility], Pcp Primary Care Provider UnavailHawa Barron MD Primary Care Provider Unavaila ble [facility], Pcp Primary Care Provider Hawa Zavala MD Primary Care Provider Unavaila Melonie Rojas DO Primary Care Pro vider Unavailable [facility], Pcp Primary Care Provider Hawa Zavala MD Primary Care Provider Unavaila Jessi Cagle [facility] Unavailable [phone] Encounter Details Date Type Department Care Team Description 12/25/2016 Hospital Medical Records [address] [place] [address] Aissatou Del Castillo MD Social History Tobacco Use Types Packs/Day [...] on filedocumented in this encounter Care Teams Public Interviewer Relationship Specialty Start Date End Date Hawa Torres MD PCP - General Internal Medicine 09/09/15 12/19/20 Rancho Matthews MD [address] [place] [address] 48821 PCP - General Internal Medicine 12/20/20 03/22/21 [facility], Pcp [address] [place] [address] 61483 PCP - General Internal Medicine 03/23/21 04/11/21 Rancho Matthews MD [address] [place] [address] 83192 PCP - General Internal Medicine 04/12/21 04/12/21 Hawa Torres MD [address] [place] [address] 29039 PCP - General Internal Medicine 04/13/21 06/05/21 Hawa Torres MD [address] [place] [address] 08160 PCP - General Internal Medicine 06/06/21 08/07/21 [facility], Pcp [address] [place] [address] 15056 PCP - General Internal Medicine 08/08/21 10/27/21 Hawa Torres MD PCP - General Internal Medicine 10/28/21 04/11/22 [facility], Pcp [address] [place] [address] 36400 PCP - General Internal Medicine 04/12/22 05/01/22 Hawa Torres MD [address] [place] [address] 14098 PCP - General Internal Medicine 05/02/22 05/21/22 Melonie Sorensen DO [address] [place] [address] 67845 PCP - General Internal Medicine 05/22/22 09/07/22 [facility], Pcp [address] [place] [address] 02349 PCP - General Internal Medicine 09/08/22 11/08/22 Hawa Torres MD [address] [place], [place] [phone] PCP - General Internal Medicine 11/09/22 Taya Gonzales MD Specialist Cardiology 11/01/20 Chandan Breen PA Specialist Cardiology 11/01/20 02/20/24 Jessi Erwin, KITTY [address] [place] [address] 31468 Specialist Nurse Practitioner [facility] 02/21/24 documented as of this encounter
--- OUTSIDE RECORDS SUMMARY | 2024-12-05 16:58 | XMS_ITS | Encounter Summary ---
Author Organization [facility] Address [address] [place] [address] Care Team Providers Care Marine Safety Officer Name Role Phone Hawa Torres MD Primary Care Provider Unavaila Taya Covington MD Unavailable [phone] Chandan Breen Unavailable Rancho Matthews MD Primary Care Provider [phone] [facility], Pcp Primary Care [...] Jessi Cagle [facility] Unavailable [phone] Encounter Details Date Type Department Care Team Description 10/26/2020 Orders Only General Surgery [address] [place] [address] Julio C Lawler MD [address] [address] Microcalcifications of the breast Social History Tobacco [...] Procedure Name Priority Date/Time Associated Diagnosis Comments WI BX BREAST W/DEVICE 1ST LESION STEREOTACTIC GUID Routine 10/21/2020 Microcalcifications of the breast documented in this encounter Results * BX BREAST W DEVICE 1ST LESION STEREOTACTIC GUIDE (10/21/2020) Julio C Lawler MD MAMMOGRAPHY documented in this encounter Visit Diagnoses Diagnosis Microcalcifications of the breast Mammographic microcalcification documented in this encounter Care Teams Marine Safety Officer Relationship Specialty Start Date End Date Hawa Torres MD PCP - General Internal Medicine 09/09/15 12/19/20 Rancho Matthews MD [address] [place] [address] 80865 PCP - General Internal Medicine 12/20/20 03/22/[address] [address] PCP - General Internal Medicine 03/23/21 04/11/21 Rancho Matthews MD [address] [place] [address] 63184 PCP - General Internal Medicine 04/12/21 04/12/21 Hawa Torres MD [address] [place] [address] 36438 PCP - General Internal Medicine 04/13/21 06/05/21 Hawa Torres MD [address] [place] [address] 61025 PCP - General Internal Medicine 06/06/21 08/07/21 [facility], Pcp [address] [place] [address] PCP - General Internal Medicine 08/08/21 10/27/21 Hawa Torres MD PCP - General Internal Medicine 10/28/21 04/11/22 [facility], Pcp [address] [place] [address] PCP - General Internal Medicine 04/12/22 05/01/22 Hawa Torres MD [address] [place] [address] 31325 PCP - General Internal Medicine 05/02/22 05/21/22 Melonie Sorensen DO [address] [place] [address] 20500 PCP - General Internal Medicine 05/22/22 09/07/22 [facility], Pcp [address] [place] [address] 11924 PCP - General Internal Medicine 09/08/22 11/08/22 Hawa Torres MD [address] [place] [address] 61948 PCP - General Internal Medicine 11/09/22 Taya Gonzales MD Specialist Cardiology 11/01/20 Chandan Breen PA Specialist Cardiology 11/01/20 02/20/24 Jessi Erwin DNP [address] [place] [address] 08607 Specialist Nurse Practitioner Family 02/21/24 documented as of this encounter
--- OUTSIDE RECORDS SUMMARY | 2024-12-05 16:58 | XMS_ITS | Encounter Summary ---
Author Organization [facility] Address [address] [place] [address] Care Team Providers Care Restrooms Or Lounges Maid Name Role Phone Hawa Torres MD Primary Care Provider UnavailTaya Lira MD Unavailable [phone] Chandan Breen Unavailable + Rancho Matthews MD Primary Care Provider + [facility] Primary Care Provider UnavailRancho Brock MD Primary Care Provider + Hawa Torres MD Primary Care Provider Unavaila Hawa Maddox MD Primary Care Provider Unavaila elpidio [facility], Pcp Primary Care Provider UnavailHawa Barron MD Primary Care Provider Unavaila ble [facility], Pcp Primary Care Provider Hawa Zavala MD Primary Care Provider Unavaila Melonie Rojas DO Primary Care Pro vider Unavailable [facility], Pcp Primary Care Provider Hawa Zavala MD Primary Care Provider Unavaila Jessi Cagle [facility] Unavailable + Encounter Details Date Type Department Care Team Description 11/04/2020 Mobile Web Application Developer Report Medical Records [address] [place] [address] 11899 Lorin Mcclelland MD Social History Tobacco Use [...] on filedocumented in this encounter Care Teams Restrooms Or Lounges Maid Relationship Specialty Start Date End Date Hawa Torres MD PCP - General Internal Medicine 09/09/15 12/19/20 Rancho Matthews MD [address] [place] [address] PCP - General Internal Medicine 12/20/20 03/22/21 [facility], [place] [phone] PCP - General Internal Medicine 03/23/21 04/11/21 Rancho Matthews MD [address] [place] [address] 50401 PCP - General Internal Medicine 04/12/21 04/12/21 Hawa Torres MD [address] [place] [address] 30912 PCP - General Internal Medicine 04/13/21 06/05/21 Hawa Torres MD [address] [place] [address] 75615 PCP - General Internal Medicine 06/06/21 08/07/21 [facility], [address] [address] PCP - General Internal Medicine 08/08/21 10/27/21 Hawa Torres MD PCP - General Internal Medicine 10/28/21 04/11/22 [facility], Pcp [address] [place] [address] 04788 PCP - General Internal Medicine 04/12/22 05/01/22 Hawa Torres MD [address] [place] [address] 32732 PCP - General Internal Medicine 05/02/22 05/21/22 Melonie Sorensen DO [address] [place] [address] 46468 PCP - General Internal Medicine 05/22/22 09/07/22 [facility], Pcp [address] [place] [address] 83039 PCP - General Internal Medicine 09/08/22 11/08/22 Hawa Torres MD [address] [place] [address] 45917 PCP - General Internal Medicine 11/09/22 Taya Gonzales MD Specialist Cardiology 11/01/20 Chandan Breen PA Specialist Cardiology 11/01/20 02/20/24 Jessi Erwin, KITTY [address] [place] [address] 65918 Specialist Nurse Practitioner [facility] 02/21/24 documented as of this encounter
[2024-12-05 18:55] LABS: Influenza A PCR NEGATIVE (Negative); Influenza B PCR NEGATIVE (Negative); Resp Syncy Virus RNA Qual PCR NEGATIVE (Negative); SARS COV2 PCR INHOUSE NEGATIVE (Negative)
== END 2024-12-05 14:58 | disposition home or self-care (01) ==
LOC: HO.LAB 14:57
PROVIDERS: PCP Internal Medicine; Visit Provider Nurse Practitioner Family
DX: J06.9 Acute upper respiratory infection, unspecified (principal)
CPT/HCPCS: 0241U

== ENCOUNTER 2024-12-05 14:57 | Outpatient (AMB) | payer MEDICARE, MEDICAID, SELFPAY ==
--- NOTE | 2024-12-05 14:59 | MHC.PC.OV ---
Vital Signs 12/05/24 15:06 12/05/24 15:25 Height 4 ft 9 in Weight 144 lb BMI 31.2 BP 165/70 H 120/50 L Blood Pressure Location Lt brachial Rt brachial Position Sitting Sitting Respiration 16 Pulse 73 Pulse Source Pulse Oximeter Temp 97.9 F Temp Source Oral Pulse Oximetry (%) 96 Oxygen Delivery Method Room Air Intake Visit Reasons: Return of flu symptoms(Pt. needs a mask) Intake Note: patient here c/o return of flu symptoms Resident Program Specialist Required: Yes Resident Program Specialist Language: Predatory Animal Hunter Name: patient refused Information Interpreted: non-clinical & clinical Accompanied by: Daughter Is last menstrual period known: No Post menopausal: No Patient : No Allergies cetirizine Allergy (Unknown, Verified 12/05/24 15:13) Unknown lisinopril Allergy (Unknown, Verified 12/05/24 15:13) Unknown losartan Allergy (Unknown, Verified 12/05/24 15:13) Unknown spironolactone Allergy (Unknown, Verified 12/05/24 15:13) Unknown contrast dye Allergy (Unknown, Uncoded 12/05/24 15:13) kidney failure Medication List - Last Reconciled 12/05/24 by Rima Hernandez, SUSIE aspirin 81 mg PO DAILY atorvastatin 40 mg PO DAILY buspirone 15 mg PO TID calcipotriene 0.005% 1 appl topical BID carvedilol 3.125 mg PO BID clobetasol 0.05% 1 appl topical DAILY PRN 30 days famotidine 20 mg PO BID fluoxetine 10 mg PO DAILY FreeStyle Cisco 2 Sensor (flash glucose sensor) As directed q14 days MARTA NS hydrocodone-homatropine 5-1.5 mg/5 mL (5 mL) 5 mL PO Q4-6H PRN insulin lispro (Humalog Oziel KwikPen (U-100)) 1 sliding scale dose subcut USEASDIRECTD ipratropium-albuterol 20-100 mcg/actuation (Combivent Respimat) 1 puff inhalation QID letrozole 2.5 mg PO DAILY levothyroxine 112 mcg PO DAILY loratadine 10 mg PO DAILY qjcakycqlexr-ajtc-plbhr acid 18-400 mg-mcg (Spectravite Women) 1 tab PO DAILY ondansetron 4 mg PO Q8H PRN pen needle, diabetic (BD Savita 2nd Gen Pen Needle) As directed sennosides (Natural Senna Laxative) 17.2 mg (2 x 8.6 mg) PO BEDTIME sevelamer carbonate 800 mg PO TID triamcinolone acetonide 0.1% 1 appl topical DAILY Tobacco use date assessed: 12/05/24 Fall risk assessment: No Falls in past year Last assessed Fall Risk: 12/05/24 Dental Screening Dental Screen Date: 12/05/24 Did you have a dental visit in the last 12 months?: Yes Did you have a dental problem in the last 6 months where you did not have access to dental care?: No Was dental information given to patient?: Patient has dentist HPI HPI Comments History of Present Illness Details 84-year-old Malay speaking female, accompanied by her daughter, presents with complaints of continued SOB and non-productive cough in the morning. Her symptoms have not worsened since she recently had the flu. She has been using her albuterol inhaler. She developed fatigue 5 days ago which is progressively worsened. No fever, chills, body aches. No chest pain. No sick contact. 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 She tested positive for influenza a on 11/05/2024 and was treated with Tamiflu. [facility] Medical History (Updated 12/05/24 @ 15:38 by Rima Hernandez CNP) Fistula Urge incontinence of urine Type 2 diabetes mellitus Tubular adenoma of colon Systolic left-sided congestive heart failure, NYHA class 2 Pulmonary embolism Protein malnutrition Osteopenia STACEY on CPAP Malignant neoplasm of female breast Lichen sclerosus of vulva Left leg swelling Incontinence Hypothyroidism HTN (hypertension) Hyperlipidemia Hiatal hernia Gastro-esophageal reflux ESRD on dialysis Diabetes mellitus Coronary arteriosclerosis Ischemic cardiomyopathy Congestive heart failure Cancer of left breast CAD (coronary artery disease) Anemia Surgical History H/O colonoscopy H/O: hysterectomy S/P SANDRINE-BSO History of implantable cardiac defibrillator (ICD) Family History Maternal Grandmother Cardiovascular disease Father Lung cancer Social History Housing: House Patient Tobacco Use Status: Never used Tobacco e-Cigarette/Vaping Use: Never Used Second Hand Smoke Exposure: Yes Patient : No service: No Current occupational status: disabled Current occupational exposures/hazards: No Cognitive needs: No Hearing needs: No Vision needs: No Questionnaire Thrive Questionnaire Date Thrive assessed: 11/04/24 I am a: Parent/Caregiver What is your living situation today?: I have a steady place to live Within the past 12 months, did the food you bought not last and you didn't have the money to get more?: Never true Within the past 12 months, did you worry whether your food would run out before you got money to buy more?: Never true Do you have trouble paying for medicines?: No Do you have trouble getting transportation to medical appointments?: No Do you have trouble paying your heating and electricity bill?: No Do you have trouble taking care of your child, family member or friend?: No Do you have trouble with day-to-day activities such as bathing, preparing meals, shopping, managing finances, etc.?: Yes Are you currently unemployed and looking for a job?: No Are you interested in more education?: No Please select the resources that you would like help with: None Currently or been in a relationship where the following occur: No concerns reported THRIVE Score: 0 ANDREEA-7 AMB Questionnaire ANDREEA-7 Date ANDREEA - 7 assessed: 11/11/24 Source: Developed by Drs. Bienvenido Aragon, Winnie Givens, Matt Alcantar and colleagues, with an educational justen from [employer]. Review of Systems Const Details: Const Denies chills, Reports fatigue, Denies fever(s), Denies headache(s) and Denies weakness ENT Reports as per HPI Card Denies chest pain, Denies lightheadedness, Reports dyspnea and Denies other (Palpitations) Resp Reports cough, Reports SOB, Denies wheezing GI Denies abdominal pain, Denies melena, Denies hematochezia, Denies change in bowel habits, Denies dyspepsia and Denies nausea Denies hematuria and Denies dysuria Musc Denies abnormal gait, Denies myalgias, Denies arthralgias, Denies numbness and Denies tingling Skin/Breast Denies rash, Denies unusual bruising and Denies wounds Neuro Denies abnormal gait, Denies dizziness, Denies headache(s), Denies memory loss, Denies numbness, Denies Sensory deficit (Neuro), Denies tingling and Denies weakness Psych Denies anxiety, Denies depression, Denies memory loss Endo Denies cold intolerance, Reports fatigue, Denies heat intolerance, Denies polydipsia and Denies polyuria Aller/Immun Denies wheezing Physical exam (Primary Care) Vital Signs: Last Vital Signs Temp 97.9 F 12/05/24 15:06 Pulse 73 12/05/24 15:06 Resp 16 12/05/24 15:06 BP 165/70 H 12/05/24 15:06 Pulse Ox 96 12/05/24 15:06 Oxygen Delivery Method Room Air 12/05/24 15:06 BMI result Body Mass Index 31.2 Tobacco/Smoking Status: Tobacco use Status Tobacco use date assessed 12/05/24 12/05/24 15:10 Patient Tobacco Use Status Never used Tobacco 12/05/24 15:03 e-Cigarette/Vaping Use Never Used 12/05/24 15:03 Thrive Assessment: Date of Thrive Assessment Date Thrive assessed 11/04/24 12/05/24 15:03 Currently or been in a relationship where the following occur: No concerns reported Const Other: General: no acute distress and well developed Nutritional Appearance: well nourished Orientation/consciousness: patient oriented x3 HENMT Head is normocephalic Bilateral ear canal and TM are normal Nasal turbinates and oropharynx are pink and moist Sinuses are nontender with palpation No auricular or cervical lymphadenopathy Eyes General: appearance normal, both eyes and all related structures Pupils: Equal, round and reactive pupils present EOM: EOMs intact bilaterally Resp Effort & Inspection: normal respiratory effort Auscultation: clear to auscultation bilaterally Cardio Rate: regular rate Rhythm: regular rhythm Heart sounds: S1 normal heart sound present, S2 normal heart sound present, no gallops, no murmurs and no rubs GI Palpation (GI): No Abdominal aortic bruit present, Soft to palpation, nontender, No hepatosplenomegaly present and No Rebound tenderness present Auscultation: normal bowel sounds General: Yes no CVA tenderness Back/Spine/Pelvis Back: no CVA tenderness Cervical Spine: cervical ROM normal and No Cervical spine tenderness Thoracic/Lumbar Spine: thoraco-lumbar ROM normal, No pain with thoraco-lumbar ROM, No thoracic spinal tenderness and No lumbar spinal tenderness Extrem General: Yes normal to inspection, No edema and No calf tenderness Skin General: warm and dry. Normal skin color. Normal skin turgor Neuro General: patient oriented x3, gait normal and no focal neuro deficit Cranial nerves: Yes Equal, round and reactive pupils present Cognition (Neuro): normal cognition Gait exam (Neuro): Normal gait present Sensory Exam: No Sensory deficit (Neuro) Psych Appearance: grossly normal Affect: normal affect Attitude: cooperative Thought process: Normal thought process present Coding Level of Care Code Est Pt Level 3 (03434) Diagnoses Viral upper respiratory illness J06.9 Assessment & Plan Assessment & Plan (1) Viral upper respiratory illness: Code(s): J06.9 - Acute upper respiratory infection, unspecified Category: Medical Plan: Likely viral illness though possibly allergies. No exam evidence of bacterial infection Viral illness There is no antibiotic medication for viruses.? They must run their course.? Most average 5-7 days but 7-10 days is not uncommon and up to 14 days is still possible.? A cough is often the last symptom to resolve and this can last for weeks in some cases. Rest Hydrate well -? Drink plenty of fluids.? Especially water Tylenol for muscle aches, headache, fever/discomfort Loratadine and hydrocodone-homatropine cough syrup as prescribed Use albuterol inhaler as prescribed Will check vitamin-D level She has outstanding blood work ordered by her PCP. Advised to get blood work done and follow-up with her PCP as planned Cannot rule out COVID-19/RSV/Flu infection Nasal swab acquired and will be sent to the lab Return for new or worsening symptoms Verbalized understanding and agreed with treatment plan. Orders: Orders Vitamin D 25-OH Total Today J06.9 - Acute upper respiratory infection, unspecified SARS-CoV2/FLU/RSV Today J06.9 - Acute upper respiratory infection, unspecified Medications: Refilled hydrocodone-homatropine 5-1.5 mg/5 mL (5 mL) Partial Fill upon patient request. patient may pay out of pocket 5 mL PO Q4-6H PRN 200 mL 0RF cough
[2024-12-05 15:06] VITALS: BP 165/70; PULSE 73; RESP 16; TEMP 36.6; O2SAT 96; BMI 31.2
[2024-12-05 15:25] VITALS: BP 120/50
--- OUTSIDE RECORDS SUMMARY | 2024-12-05 16:21 | XMS_ITS | Encounter Summary ---
Author Organization [facility] Address [address] [place] [phone] Phone Care Team Providers Care Functional Support Analyst Name Role Phone Unavailable Primary Care Provider Unavailabl e Encounter Details Date Type Department Care Team (Late st Contact Info) Description 11/10/2024 Treatment [facility] [address] [phone] Aldo Rice MD [address] [phone] Social History Tobacco Use Types [...] care for end stage renal disease. Attending Rubberizing Mechanic: ALDO RICE MD Dialysis Location: [facility] Schedule: Shift: 1 HOME [...]
--- OUTSIDE RECORDS SUMMARY | 2024-12-05 16:21 | XMS_ITS | Encounter Summary ---
Author Organization [facility] Address [address] [place] [phone] Phone Care Team Providers Care Artificial Snow Making Machine Operator Name Role Phone Unavailable Primary Care Provider Unavailabl e Encounter Details Date Type Department Care Team (Late st Contact Info) Description 11/12/2024 Treatment [facility] [address] [phone] Aldo Rice MD [address] [phone] Social History Tobacco Use Types Packs/Day Years Used Date Smoking Tobacco: Never Assessed Comments Unknown Sex and Gender Information Value Date Recorded Sex Assigned at Not on file Legal Sex Female 5:11 PM EST Gender Identity Not on file Sexual Orientation Not on file documented as of this encounter Miscellaneous Notes * Dialysis Note - Aldo Rice MD - 11/12/2024 12:00 AM EST Patient: Dana Grant : 1940 Note Type: Dialysis Rounds-Basic Service Date: 11/12/2024 This patient was personally seen for a basic visit as part of routine monthly dialysis care for end stage renal disease. Attending Railway Shunter: ALDO RICE MD Dialysis Location: [facility] Schedule: Shift: 1 HOME MEDICATIONS Current [...] (09/10/24) Signed by: ALDO RICE MD on 11/12/2024 at 08:00:05 AM documented in this encounter Plan of Treatment Not on file documented as of this encounter Visit Diagnoses Not on filedocumented in this encounter
--- OUTSIDE RECORDS SUMMARY | 2024-12-05 16:21 | XMS_ITS | Clinical Summary ---
Author Organization [address] [place] [address] [place] [phone] Phone Care Team Providers Care Mounter Name Role Phone Unavailable Primary Care Provider [...] MISC) APPLY 1 DEVICE EVERY 14 DAYS. 3 Active pen needle, diabetic 32 gauge x 5/32 needle USE 5 TIMES A DAY WITH INSULIN 3 Active busPIRone (BUSPAR) 15 mg tablet Take 1 tablet (15 mg total) by mouth 2 (two) times a day. 3 Active carvediloL (COREG) 3.125 mg tablet Take 1 tablet (3.125 mg total) by mouth 2 (two) times a day with meals. Active glucose blood (FreeStyle Precision Stepan Strips) test strip Apply 1 each topically 3 (three) times a day if needed (to test blood sugars). 2 Active FREESTYLE LANCETS MISC Test BS tid 2 Active triamcinolone (KENALOG) 0.1 % cream Mix Triamcinolone 0.1% cream 80gms with Cerave cream. Apply daily from neck down after showers. Not to be used on the face. 1 Active clobetasoL (TEMOVATE) 0.05 % cream Apply twice daily for 2 weeks 1 Active calcipotriene (DOVONOX) 0.005 % ointment Apply to affected are BID 1 Active multivitamin tablet Take 1 tablet by mouth 1 (one) time each day. Active loratadine (CLARITIN) 10 mg tablet Take 1 tablet (10 mg total) by mouth 1 (one) time each day. 1 Active atorvastatin (LIPITOR) 40 mg tablet Take 1 tablet (40 mg total) by mouth 1 (one) time each day. 1 Active letrozole (FEMARA) 2.5 mg tablet Take 1 tablet (2.5 mg total) by mouth 1 (one) time each day 1 Active levothyroxine (SYNTHROID, LEVOTHROID) 112 mcg tablet Take 1 tablet (112 mcg total) by mouth. Six days a week and 0.5 tablet once weekly 1 Active glucose blood test strip Apply 1 each topically. 0 Active acetaminophen (TYLENOL) 500 mg capsule Take [...] MEAL PER SLIDING SCALE: <120: 0 units, 198937: 3 units, 151-199: 4 UNITS, 200-249: 5 UNITS, 250-299: 6 UNITS, 300-349: 7 UNITS, 350-400: 8 UNITS, ABOVE 400: CONTACT PRESCRIBER 5 Active Active Problems Problem Noted Date Diagnosed [...] Hypercalcemia 02/22/2022 PLMD (periodic limb movement disorder) 1 Nocturnal hypoxemia 04/21/2021 Respiratory failure with [...] hypotension - Most recent echocardiogram 07/2022 at [facility] showed LVEF 10- 15%, global hypokinesis with wall motion abnormalities without hemodynamically significant valve disease - [facility] MANNEQUIN SANDER AND FINISHER-D generator change in 12/2023. There had been [...] Noted Date Diagnosed Date Resolved Date Old PR (myocardial infarction) 11/28/2023 10/14/2024 Overview (11/28/2023): March 2011 PR at [facility] Chronic systolic dysfunction of left ventricle 11/28/2023 10/14/2024 Overview (11/28/2023): S/P pacemaker Pacemaker 01/26/2021 10/14/2024 Overview (11/28/2023): Cardiac pacemaker Encounters Date Type Department Care Team Description 11/26/2024 Telephone [facility] Pulmonary [address] [place] [phone] Deo Breen MA Fitting for DME ([employer] [facility]) 11/16/2024 7:25 PM EST Ancillary Procedure [facility] Cardiology [facility] [address] [facility] 154 [place] [phone] 10/30/2024 3:40 PM EST Office Visit Endocrinology [address] [address] Lucille Clarke PA 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, with long-term current use of insulin ([facility]) (Primary Dx); Hypothyroidism, unspecified type 10/22/2024 Telephone [facility] Cardiology [facility] [address] [place] [address] Jessi Erwin NP faxed office note 10/14/2024 10:25 PM EST Ancillary Procedure [facility] - [address] [place] [address] 10/14/2024 12:40 PM EST Consult [facility] - [address] [place] [address] Jessi Erwin NP Chronic systolic dysfunction of left ventricle (Primary Dx); Primary hypertension; Coronary artery disease involving [place] coronary artery of [place] heart without angina pectoris; Systolic left-sided congestive heart failure, NYHA class 2 (CMS/HCC); Pure hypercholesterolemia; Preop cardiovascular exam 09/30/2024 3:15 PM EST Office Visit [facility] Hematology Oncology [address] [place] [phone] Cullen Gibson MD 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 breast in female, estrogen receptor positive (CMS/HCC) (Primary Dx) 09/15/2024 Telephone [facility] - [address] [place] [address] Ramya Headley NP Arm Swelling 09/11/2024 11:25 AM EST Ancillary Procedure [facility] [address] [place] [address] 09/09/2024 Telephone [facility] [address] [place] [address] Nikhil Sorenson MD from Last 3 Months Immunizations Name Administration [...] Description 02/04/2025 3:30 PM EDT Ancillary Procedure [facility] - [facility] [address] [facility] [address] [place] [address] 02/19/2025 3:40 PM EDT Office Visit Endocrinology - [address] [address] Lucille Clarke PA [address] [place] [address] 03/31/2025 3:15 PM EDT Office Visit [facility] Hematology Oncology [address] [place] [phone] Cullen Gibson MD [address] [place] [phone] 04/09/2025 3:40 PM EDT Appointment Radiology Department - [place] [address] [place] [phone] 04/23/2025 10:50 AM EDT Office Visit [facility] - [facility] [address] [facility] 154 [place] [phone] Taya Gonzales MD 300 [place] [address] Health Maintenance Due Date Last Done Comments [...] this topic Medical Devices Implanted Type Area Insurance Follow Up Specialist Device Identifier Shelf Expiration Date Model / Serial / Lot Davidt-Stju 3357-40q [employer] Assura(Tm) [id number] Implanted:12/23 (Quantity not on file) Cardiac MANNEQUIN SANDER AND FINISHER-D ICD FIERRO [employer]- [employer] [facility] 3357-40Q Digital Fuel ASSURA(TM) / [id number] / Procedures Procedure Name Priority Date/Time Associated Diagnosis Comments CARDIAC DEVICE CHECK- REMOTE- MURJ Routine 11/16/2024 7:22 PM EST ECG 12-LEAD Routine 10/18/2024 9:59 AM EST Chronic systolic dysfunction of left ventricle CARDIAC DEVICE CHECK- REMOTE- MURJ Routine 10/14/2024 10:24 PM EST CARDIAC DEVICE CHECK- REMOTE- MURJ Routine 09/11/2024 11:20 AM EST VALORIE DEXA AXIAL SKELETON Routine 11/08/2020 3:13 PM EST Asymptomatic menopausal state from Last 3 Months or Most Recently Relevant to Health Maintenance Results * Cardiac device check - Remote- MURJ (11/16/2024 7:22 PM EST) Only the most recent of3 resultswithin the time period is included. Date Time Interrogation Session [id number] CV DEVICE CHECK Type Interrogation Session Remote Scheduled CV DEVICE CHECK Implantable Pulse Generator Insurance Follow Up Specialist [facility] CV DEVICE CHECK Implantable Pulse Generator Type MANNEQUIN SANDER AND FINISHER-D CV DEVICE CHECK Implantable Pulse Generator Model 3357-40Q [employer](TM) CV DEVICE CHECK Implantable Pulse Generator Serial Number [id number] CV DEVICE CHECK Implantable Pulse Generator Implant Date 20240110 CV DEVICE CHECK Battery Remaining Percentage 82.00 CV DEVICE CHECK Battery Remaining Longevity 53.0 CV DEVICE CHECK Battery Voltage 3.010 CV D EVICE CHECK Battery CONSTRUCTION ADMINISTRATOR Trigger 2.590 CV DEVICE CHECK Battery Status Middle of Service CV DEVICE CHECK Capacitor Charge Time 8.000 CV DEVICE CHECK Antione Statistic RA Percent Paced 41.00 CV DEVICE CHECK Antione Statistic RV Percent Paced 100.00 CV DEVICE CHECK MANNEQUIN SANDER AND FINISHER Statistic MANNEQUIN SANDER AND FINISHER Percent Paced 99.00 CV DEVICE CHECK Atrial Tachy Statistic AT/AF [place] Percent 0.00 CV DEVICE CHECK Lead Channel Sensing Intrinsic Amplitude 1.700 CV DEVICE CHECK Lead Channel Setting Sensing Sensitivity 0.30 CV DEVICE CHECK Lead Channel Impedance Value 340 CV DEVICE CHECK Lead Channel Pacing Threshold Amplitude 1.000 CV DEVICE CHECK Lead Channel Pacing Threshold Pulse Width 0.5 CV DEVICE CHECK Lead Channel RA Pacing Threshold Date 2024-11-10 CV DEVICE CHECK Lead Channel Setting Pacing Amplitude 2.000 CV DEVICE CHECK Lead Channel Setting Pacing Pulse Width 0.5 CV DEVICE CHECK Lead Channel Sensing Intrinsic Amplitude 4.100 CV DEVICE CHECK Lead Channel Setting Sensing Sensitivity 0.50 CV DEVICE CHECK Lead Channel Impedance Value 380 CV DEVICE CHECK Lead Channel Pacing Threshold Amplitude 0.750 CV DEVICE CHECK Lead Channel Pacing Threshold Pulse Width 0.5 CV DEVICE CHECK Lead Channel RV Pacing Threshold Date 2024-11-10 CV DEVICE CHECK Lead Channel Setting Pacing Amplitude 2.000 CV DEVICE CHECK Lead Channel Setting Pacing Pulse Width 0.5 CV DEVICE CHECK Lead Channel Impedance Value 450 CV DEVICE CHECK Lead Channel Pacing Threshold Amplitude 3.250 CV DEVICE CHECK Lead Channel Pacing Threshold Pulse Width 0.5 CV DEVICE CHECK Lead Channel Pacing Threshold Date 2024-11-10 CV DEVICE CHECK Lead Channel Setting Pacing Amplitude 4.250 CV DEVICE CHECK Lead Channel Setting Pacing Pulse Width 0.5 CV DEVICE CHECK Antione Setting Mode (NBG Code) DDDR CV DEVICE CHECK Ventricular chambers paced during MANNEQUIN SANDER AND FINISHER pacing. BiV CV DEVICE CHECK Antione Setting Lower Rate Limit 60 CV DEVICE CHECK Antione Setting AT Mode Switch Rate 180 CV DEVICE CHECK Antione Setting Maximum Tracking Rate 110 CV DEVICE CHECK Antione Setting Maximum Sensor Rate 110 CV DEVICE CHECK Antione Setting PAV Delay 150 CV DEVICE CHECK Antione Setting JAGJIT Delay 130 CV DEVICE CHECK MANNEQUIN SANDER AND FINISHER LV-RV Delay 40 CV D EVICE CHECK Therapy Statistic Recent Shocks Delivered 0 CV DEVICE CHECK Therapy Statistic Recent Shocks Aborted 0 CV DEVICE CHECK Therapy Statistic Recent ATP Delivered 0 CV DEVICE CHECK Shock Measured Impedance 59 CV DEVICE CHECK Zone Setting Type Category [...] 3 CV DEVICE CHECK Date of Service 2025-01-15 CV DEVICE CHECK Anatomical Region Laterality Modality Device Interroga tion 11/10/2024 2:00 AM EST Impressions 11/16/2024 7:16 PM EST Heart Failure Diagnostic: Stable * Heart failure diagnostics assessed through the device * Status: Stable * No overt HF present Narrative Procedure Note Kaz Beatty MD - 11/16/2024 IMPRESSION: Heart Failure Diagnostic: Stable * Heart failure diagnostics assessed through the device * Status: Stable * No overt HF present us Kaz Beatty MD CV IMPLANTABLE CARDIAC DEV ICE PROCEDURES Final Result * ECG 12 lead (10/18/2024 9:59 AM EST) Ventricular Rate ECG 72 BPM GEMUSE Atrial Rate 72 BPM GEMUSE P-R Interval 152 ms GEMUSE QRS Duration 148 ms GEMUSE Q-T Interval 466 ms GEMUSE QTc 510 ms GEMUSE P Wave [place] 69 degrees GEMUSE R [place] -65 degrees GEMUSE T [place] 97 degrees GEMUSE ECG Interpretation Atrial sensed, BiV paced rhythm Confirmed by CHANDAN BEATTY ([id number]) on 10/18/2024 11:50:21 PM GEMUSE 10/14/2024 12:4 9 PM EST 10/18/2024 11:50 PM EST us Jessi Erwin NP ECG ORDERABLES Edited Result - Final GEMUSE * VALORIE DEXA AXIAL SKELETON (11/08/2020 3:13 PM EST) Anatomical Region Laterality Modality Mammography 11/08/2020 12:4 8 PM EST Narrative 11/08/2020 3:13 PM EST [facility] Diagnostic Imaging Department [address] [place] [address] Patient: ??DANA NASH ?/Age/Sex: 1940 - 80 - F Unit#: ??[id number] ? Location/Status: ??SPDIMAM/REG CLI ? Mnemonic/Ordering Site: ??MAMDEXAAX/SPMAM Ordering Physician: ??CULLEN GIBSON MD [facility] Dexa Axial Skeleton - 11/08/20 - 1329 HISTORY: ??The patient is a 80-year-old postmenopausal [...] probability of hip fracture of 3.1%. Code 52373 Dictating Physician: ??KYLIE GLASER MD Electronically Signed by: ??KYLIE GLASER MD Dic Date/Time: ??11/08/20 151 Sign date/Time: ??11/08/20 1513 Procedure Note Kylie Glaser MD - 09/12/2022 [facility] Diagnostic Imaging Department [address] [place] [address] Patient: DANA NASH/Age/Sex: 1940 - 80 - F Unit#: [id number] Location/Status: SPDIMAM/REG CLI Mnemonic/Ordering Site: MAMDEXAAX/SPMAM Ordering Physician: CULLEN GIBSON MD Valorie Dexa [...] density of the femurs bilaterally is 0.981 gm/pe2dxoke is 97% of that of young normals [...] probability of hip fracture of 3.1%. Code 22486 Dictating Physician: KYLEI GLASER MD Electronically Signed by: KYLIE GLASER MD Dic Date/Time: 11/08/201511 Sign date/Time: 11/08/201512 Cullen Gibson MD IMG BI PROCEDURES Final Res ult from Last 3 Months or Most Recently Relevant to Health Maintenance Insurance [employer] [place] [employer] [place]
--- OUTSIDE RECORDS SUMMARY | 2024-12-05 16:21 | XMS_ITS | Encounter Summary ---
Author Organization [facility] Address [address] [place] [phone] Phone Care Team Providers Care Paper Processing Machine Helper Name Role Phone Unavailable Primary Care Provider Unavailabl e Encounter Details Date Type Department Care Team (Late st Contact Info) Description 11/24/2024 Treatment [facility] [address] [address] Aldo Rice MD [address] [address] End stage renal disease; Dependence on renal dialysis Social History Tobacco Use Types Packs/Day Years Used Date Smoking Tobacco: Never Assessed Comments Unknown Sex and Gender Information Value Date Recorded Sex Assigned at Not on file Legal Sex Female 5:11 PM EST Gender Identity Not on file Sexual Orientation Not on file documented as of this encounter Miscellaneous Notes * Dialysis Note - Aldo Rice MD - 11/24/2024 12:00 AM EST Patient: Dana Grant : 1940 Note Type: Dialysis Rounds-Comp Service Date: 11/24/2024 This patient was personally seen for a complete visit as part of routine monthly dialysis care for end stage renal disease. Attending Contract Post Office Clerk: ALDO RICE MD Dialysis Location: [facility] Schedule: Shift: 1 OVERVIEW Patient is stable. HOME MEDICATIONS Medications reviewed. Current fabiana Santoyo Outpatient Medications calcitriol (ROCALTROL) 0.25 MCG capsule TOME 1 CAPSULA POR VIA ORAL TODOS [place]ERN[place]IN Start Date: 08/08/2021 sevelamer carbonate (RENVELA) 800 MG tablet TOME CAMERON TABLETA JOANN VECLOREN AL WOOD CON LAS COMIDAS Start Date: 02/13/2024 Current fabiana Santoyo Allergies Allergen: Not on File BP AND FLUID ASSESSMENT Acceptable blood pressure. Fluid status acceptable. ADEQUACY ASSESSMENT Target met. Prescription compliance acceptable. ACCESS ASSESSMENT Vascular access examined. ANEMIA ASSESSMENT SACHA adjusted per protocol. Iron adjusted per protocol. Hgb 9.8 (09/10/24) BMM ASSESSMENT Bone and mineral metabolism parameters reviewed. NUTRITION ASSESSMENT Albumin at goal. PHYSICAL EXAM Exam not performed. Signed by: ALDO RICE MD on 11/24/2024 at 05:51:54 PM documented in this encounter Plan of Treatment Not on file documented as of this encounter Visit Diagnoses Diagnosis End stage renal disease Dependence on renal dialysis documented in this encounter
--- OUTSIDE RECORDS SUMMARY | 2024-12-05 16:21 | XMS_ITS | Encounter Summary ---
Author Organization [facility] Address [address] [place] [address] Care Team Providers Care Scale Balancer Name Role Phone Unavailable Primary Care Provider Unavailabl e Reason for Visit * Reason Onset Date Comments Fitting for DME 11/26/2024 [employer] [facility] Encounter Details Date Type Department Care Team (Late st Contact Info) Description 11/26/2024 Telephone [facility] Pulmonary [address] [place] [address] Deo Breen MA Fitting for DME ([employer] oxygen) Social History Tobacco Use Types Packs/Day Years [...] as of this encounter Progress Notes * Deo Breen MA - 11/26/2024 11:53 AM EST Pt reliant pharmacy request faxed as well. * Deo Breen MA - 11/26/2024 11:36 AM EST [employer] [facility] therapy SWO order faxed documented in this encounter Plan of Treatment Upcoming Encounters Date Type Department Care Team (Late st Contact Info) Description 02/04/2025 3:30 PM EDT Ancillary Procedure [facility] - [facility] [address] [facility] 154 [place] [phone] 02/19/2025 3:40 PM EDT Office Visit Endocrinology - [address] [address] Lucille Clarke PA [address] [place] [address] 03/31/2025 3:15 PM EDT Office Visit [facility] Hematology Oncology [address] [place] [phone] Cullen Gibson MD [address] [place] [phone] 04/09/2025 3:40 PM EDT Appointment Radiology Department - [address] [address] 04/23/2025 10:50 AM EDT Office Visit [facility] Associates - [facility] [address] 300 [facility] 154 [place] [phone] Taya Gonzales MD [address] [place] [address] documented as of this encounter Visit Diagnoses Not on filedocumented in this encounter
--- OUTSIDE RECORDS SUMMARY | 2024-12-05 16:21 | XMS_ITS | Encounter Summary ---
Author Organization [facility] Facility Address [address] [facility] [address] [place] [address] Care Team Providers Care Health Club Manager Name Role Phone Unavailable Primary Care Provider Unavailabl e Encounter Details Date Type Department Care Team (Latest Contact Info) Description 05/28/2024 Treatment Aldo Rice MD [address] [facility] [address] [place] [address] Social History Tobacco Use Types [...] care for end stage renal disease. Attending Patient Accounts Specialist: ALDO RICE MD Dialysis Location: [facility] Schedule: Shift: 1 OVERVIEW Patient [...]
--- OUTSIDE RECORDS SUMMARY | 2024-12-05 16:21 | XMS_ITS | Encounter Summary ---
Author Organization [facility] Address [address] [place] [phone] Phone Care Team Providers Care Open Soaper Tender Name Role Phone Unavailable Primary Care Provider Unavailabl e Encounter Details Date Type Department Care Team (Late st Contact Info) Description 12/01/2024 Treatment [facility] [address] [address] Aldo Rice MD [address] [address] End stage renal disease; Dependence [...] Dialysis Note - Aldo Rice MD - 12/01/2024 12:00 AM EDT Patient: Dana Grant : 1940 Note Type: Dialysis Rounds-Basic Service Date: 12/01/2024 This patient was personally seen for a basic visit as part of routine monthly dialysis care for end stage renal disease. Attending Title I Assistant: ALDO RICE MD Dialysis Location: [facility] Schedule: Shift: 1 HOME MEDICATIONS Current Acumen Natanael Outpatient Medications calcitriol (ROCALTROL) 0.25 MCG capsule TOME 1 CAPSULA POR VIA ORAL TODOS [place]ERN[place]IN Start Date: 08/08/2021 sevelamer carbonate (RENVELA) 800 MG tablet TOME CAMERON TABLETA JOANN VECES AL WOOD CON LAS COMIDAS Start Date: 02/13/2024 Current Evan Santoyo Allergies Allergen: Not on File ANEMIA ASSESSMENT Hgb 9.8 (09/10/24) Signed by: ALDO RICE MD on 12/01/2024 at 08:53:02 AM documented in this encounter Plan of Treatment Not on file documented as of this encounter Visit Diagnoses Diagnosis End stage renal disease Dependence on renal dialysis documented in this encounter
--- OUTSIDE RECORDS SUMMARY | 2024-12-05 16:21 | XMS_ITS | Encounter Summary ---
Author Organization [facility] Address [address] [place] [address] Care Team Providers Care Operations General Agent Name Role Phone Unavailable Primary Care Provider Unavailabl e Encounter Details Date Type Department Care Team (Late Contact Info) Description 11/16/2024 7:25 PM EST Ancillary Procedure [facility] Cardiology [facility] [address] [address] Social History Tobacco Use Types Packs/Day Years [...] Description 02/04/2025 3:30 PM EDT Ancillary Procedure [facility] Cardiology [facility] [address] 300 [facility] 154 [place] [address] 02/19/2025 3:40 PM EDT Office Visit Endocrinology - [place] [address] [place] [phone] Lucille Clarke PA [address] [place] [address] 03/31/2025 3:15 PM EDT Office Visit [facility] Hematology Oncology [address] [place] [phone] Cullen Gibson MD [address] [place] [phone] 04/09/2025 3:40 PM EDT Appointment Radiology Department - [address] [address] 04/23/2025 10:50 AM EDT Office Visit [facility] - [facility] [address] [facility] [address] [place] [phone] Taya Gonzales MD 300 [place] [address] documented as of this encounter Procedures Procedure Name Priority Date/Time Associated Diagnosis Comments CARDIAC DEVICE CHECK- REMOTE- MURJ Routine 11/16/2024 7:22 PM EST documented in this encounter Results * Cardiac device check - Remote- MURJ (11/16/2024 7:22 PM EST) Date Time Interrogation Session [id number] CV DEVICE CHECK Type Interrogation Session Remote Scheduled CV DEVICE CHECK Implantable Pulse Generator Audio Video Technician [employer] CV DEVICE CHECK Implantable Pulse Generator Type FACE AND FILL PACKER-D CV DEVICE CHECK Implantable Pulse Generator Model 3357-40Q [facility]() CV DEVICE CHECK Implantable Pulse Generator Serial Number [id number] CV DEVICE CHECK Implantable Pulse Generator Implant Date 20240110 CV DEVICE CHECK Battery Remaining Percentage 82.00 CV DEVICE CHECK Battery Remaining Longevity 53.0 CV DEVICE CHECK Battery Voltage 3.010 CV D EVICE CHECK Battery CVICU NURSE Trigger 2.590 CV DEVICE CHECK Battery Status Middle of Service CV DEVICE CHECK Capacitor Charge Time 8.000 CV DEVICE CHECK Antione Statistic RA Percent Paced 41.00 CV DEVICE CHECK Antione Statistic RV Percent Paced 100.00 CV DEVICE CHECK FACE AND FILL PACKER Statistic FACE AND FILL PACKER Percent Paced 99.00 CV DEVICE CHECK Atrial Tachy Statistic AT/AF [place] Percent 0.00 CV DEVICE CHECK Lead Channel [...] CV DEVICE CHECK Ventricular chambers paced during FACE AND FILL PACKER pacing. BiV CV DEVICE CHECK Antione Setting Lower Rate Limit 60 CV DEVICE CHECK Antione Setting AT Mode Switch Rate 180 CV DEVICE CHECK Antione Setting Maximum Tracking Rate 110 CV DEVICE CHECK Antione Setting Maximum Sensor Rate 110 CV DEVICE CHECK Antione Setting PAV Delay 150 CV DEVICE CHECK Antione Setting JAGJIT Delay 130 CV DEVICE CHECK FACE AND FILL PACKER LV-RV Delay 40 CV D EVICE CHECK [...] Narrative Procedure Note Kaz Salgado MD - 11/16/2024 IMPRESSION: Heart Failure Diagnostic: Stable * Heart failure diagnostics assessed through the device * Status: Stable * No overt HF present us Kaz Salgado MD CV IMPLANTABLE CARDIAC DEV ICE PROCEDURES Final Result documented in this encounter Visit Diagnoses Not on filedocumented in this encounter
--- OUTSIDE RECORDS SUMMARY | 2024-12-05 16:21 | XMS_ITS | Clinical Summary ---
Author Organization [facility] Address [address] [place] [address] Care Team Providers Care Real Estate Recruiter Name Role Phone Hawa Fish MD Primary Care Provider [phone] Allergies Active Allergy Reactions Criticality Noted Date [...] age to complete this topic Care Teams Real Estate Recruiter Relationship Specialty Start Date End Date Hawa Fish MD PCP - General Internal Medicine 10/28/20
--- OUTSIDE RECORDS SUMMARY | 2024-12-05 16:21 | XMS_ITS | Clinical Summary ---
Author Organization [facility] Address [address] [place] [address] Phone Care Team Providers Care Sign Poster Name Role Phone Unavailable Primary Care Provider Unavailabl e Medications calcitriol (ROCALTROL) 0.25 MCG capsule TOME 1 CAPSULA POR VIA ORAL TODOS LOS BERNSTEIN 90 capsule 3 08/08/2021 Active sevelamer carbonate (RENVELA) 800 MG tablet TOME CAMERON TABLETA JOANN VECES AL WOOD CON LAS COMIDAS 270 tablet 1 02/13/2024 Active Encounters Date Type Department Care Team Description 12/01/2024 Treatment [facility] [address] [address] Ryan Graf MD End stage renal disease; Dependence on renal dialysis 11/26/2024 [facility] [address] [address] Ryan Graf MD End stage renal disease; Dependence on renal dialysis 11/24/2024 Treatment [facility] [address] [address] Ryan Graf MD End stage renal disease; Dependence on renal dialysis 11/12/2024 Treatment [facility] [address] [address] Ryan Graf MD 11/10/2024 Treatment [facility] [address] [address] Ryan Graf MD 11/03/2024 Treatment [facility] [address] [address] Ryan Graf MD 10/27/2024 Treatment [facility] [address] [address] Ryan Graf MD 10/20/2024 Treatment [facility] [address] [address] Ryan Graf MD 10/13/2024 Treatment [facility] [address] [address] Ryan Graf MD 10/06/2024 Treatment [facility] [address] [address] Ryan Graf MD 09/29/2024 Treatment [facility] [address] [address] Ryan Graf MD 09/16/2024 Treatment [facility] [address] [address] Ryan Graf MD 09/10/2024 Orders Only [facility] [address] [address] Ryan Graf MD 09/08/2024 Treatment [facility] [address] [address] Ryan Graf MD from Last 3 Months [...] A1C 11/28/2022 08/30/2022 Influenza Vaccine (#1) 2024 0, 07/24/2019, 08/06/2018, Additional history exists Pneumococcal Vaccine: [...] 3:00 AM EST 09/11/2024 1:18 PM EST us Ryan Graf MD LAB BLOOD ORDERABLES Final Resul t [facility] [address] [place] [address] * (ABNORMAL) SPECIAL CHEMISTRY (08/30/2022 6:00 AM EST) Hemoglobin A1C 7.3(H) 4.8 - 5.9 % [facility] 08/30/2022 6:00 AM EST 08/31/2022 6:56 AM EST Narrative [facility] - 08/30/2022 6:00 AM EST Unless otherwise specified, test(s) performed at: [facility], [address] [place] [address] SIGNAL TOWER DIRECTOR: Emery Muller M.D. For any questions, please call customer service at FREQUENCY:MONTHLY Resulting Agency Comment Specimen source: Blood Jt Mckeon MD LAB BLOOD BANK TEST ORDERABLES Final Result [facility] from Last 3 Months or Most Recently Relevant to Health Maintenance Insurance [facility]
--- OUTSIDE RECORDS SUMMARY | 2024-12-05 16:21 | XMS_ITS | Encounter Summary ---
Author Organization [facility] Address [address] [place] [address] Phone Care Team Providers Care Manager Care Name Role Phone Unavailable Primary Care Provider Unavailabl e Encounter Details Date Type Department Care Team (Late st Contact Info) Description 11/26/2024 Treatment [facility] [address] [address] Aldo Rice MD [address] [address] End stage renal disease; Dependence [...] Dialysis Note - Aldo Rice MD - 11/26/2024 12:00 AM EST Patient: Dana Grant : 1940 Note Type: Dialysis Rounds-Basic Service Date: 11/26/2024 This patient was personally seen for a basic visit as part of routine monthly dialysis care for end stage renal disease. Attending Compression Molding Machine Operator: ALDO RICE MD Dialysis Location: [facility] Schedule: Shift: 1 HOME MEDICATIONS Current [facility] Outpatient Medications calcitriol (ROCALTROL) 0.25 MCG capsule TOME 1 CAPSULA POR VIA ORAL TODOS [place] BERNSTEIN Start Date: 08/08/2021 sevelamer carbonate (RENVELA) 800 MG tablet TOME CAMERON TABLETA JOANN VECES AL WOOD CON LAS COMIDAS Start Date: 02/13/2024 Current Evan Santoyo Allergies Allergen: Not on File ANEMIA ASSESSMENT Hgb 9.8 (09/10/24) Signed by: ALDO RICE MD on 11/26/2024 at 08:19:40 AM documented in this encounter Plan of Treatment Not on file documented as of this encounter Visit Diagnoses Diagnosis End stage renal disease Dependence on renal dialysis documented in this encounter
== END 2024-12-05 15:38 | disposition home or self-care (01) ==
LOC: HO.HMCFM 14:58
PROVIDERS: PCP Internal Medicine; Visit Provider Nurse Practitioner Family
DX: J06.9 Acute upper respiratory infection, unspecified (principal)

== ENCOUNTER 2024-12-05 16:17 | Outpatient (REF) | payer MEDICARE, MEDICAID, SELFPAY ==
--- OUTSIDE RECORDS SUMMARY | 2024-12-05 16:50 | XMS_ITS | Encounter Summary ---
Author Organization [facility] Address [address] [place] [address] Care Team Providers Care Carpet Measurer Name Role Phone Salomón Lou MD Primary Care Provider Unavail able Hawa Torres MD Primary Care Provider Unavaila Taya Covington MD Unavailable [phone] Chandan Breen Unavailable Rancho Matthews MD Primary Care Provider [phone] [facility], [facility] Primary Care Provider UnavailRancho Brock MD Primary Care Provider [phone] Hawa Torres MD Primary Care Provider Unavaila Hawa Maddox MD Primary Care Provider Unavaila ble [facility], Pcp Primary Care Provider UnavailHawa Barron MD Primary Care Provider Unavaila elpidio [facility], Pcp Primary Care Provider Hawa Zavala MD Primary Care Provider Unavaila ble Melonie Sorensen DO Primary Care Pro vider Unavailable [facility], Pcp Primary Care Provider UnavailHawa Barron MD Primary Care Provider Unavaila Jessi Cagle [facility] Unavailable [phone] Encounter Details Date Type Department Care Team Description 10/15/2014 Orders Only Cardiology - [address] [address] Elio Solano MD [address] [place] [address] [address] [place] [address] CKD (chronic kidney disease) requiring [...] BASIC METABOLIC PANEL (10/19/2014 11:38 AM EST) [facility] GLUCOSE 288(H) 70 - 100 mg/dL 10/19/2014 2:52 PM [facility] Comment: Reference range applicable to fasting specimens only Based on recommendations from the ADA and AACE, the fasting glucose reference range has been changed to 70-100 mg/dL. ??This change is effective February 07, 2010 BUN 74(H) 5 - 25 mg/dL 10/19/2014 2:52 PM [facility] CREAT 1.8(H) 0.7 - 1.5 mg/dL 10/19/2014 2:52 PM [facility] GFR 29(L) >60 10/19/2014 2:52 PM [facility] Comment: If patient is -Salvadorean, multiply result by 1.21 Chronic Kidney Disease: < 60 ml/min/1.73 square meters Kidney Failure: < 15 ml/min/1.73 square meters Sodium 140 133 - 145 mEq/L 10/19/2014 2:52 PM [facility] Potassium 4.6 3.5 - 5.2 mEq/L 10/19/2014 2:52 PM EST [facility] Chloride 98 96 - 108 mEq/L 10/19/2014 2:52 PM EST [facility] CO2 35.2(H) 21.0 - 32.0 mEq/L 10/19/2014 2:52 PM EST [facility] CALCIUM 10.5 8.5 - 10.5 mg/dL 10/19/2014 2:52 PM EST [facility] 10/19/2014 11:3 8 AM EST 10/19/2014 11:39 AM EST Elio Solano MD LAB [facility] [address] [place] [address] documented in this encounter Visit Diagnoses Diagnosis CKD (chronic kidney disease) requiring chronic dialysis (HCC)- Primary End stage renal disease documented in this encounter Care Teams Carpet Measurer Relationship Specialty Start Date End Date Salomón Lou MD PCP - General Internal Medicine 09/01/14 09/08/15 Hawa Torres MD PCP - General Internal Medicine 09/09/15 12/19/20 Rancho Matthews MD [address] [place] [address] PCP - General Internal Medicine 12/20/20 03/22/21 [facility], Pcp [address] [place] [address] PCP - General Internal Medicine 03/23/21 04/11/21 Rancho Matthews MD [address] [place] [address]85 PCP - General Internal Medicine 04/12/21 04/12/21 Hawa Torres MD [address] [place] [address] PCP - General Internal Medicine 04/13/21 06/05/21 Hawa Torres MD [address] [place] [address] PCP - General Internal Medicine 06/06/21 08/07/21 [facility], Pcp [address] [place] [address] PCP - General Internal Medicine 08/08/21 10/27/21 Hawa Torres MD PCP - General Internal Medicine 10/28/21 04/11/22 [facility], Pcp [address] [place] [address] PCP - General Internal Medicine 04/12/22 05/01/22 Hawa Torres MD [address] [place] [address] PCP - General Internal Medicine 05/02/22 05/21/22 Melonie Sorensen, DO [address] [place] [address] PCP - General Internal Medicine 05/22/22 09/07/22 [facility], Pcp [address] [place] [address] 16094 PCP - General Internal Medicine 09/08/22 11/08/22 Hawa Torres MD [address] [place] [address] PCP - General Internal Medicine 11/09/22 Taya Gonzales MD Specialist Cardiology 11/01/20 Chandan Breen PA Specialist Cardiology 11/01/20 02/20/24 Jessi Erwin, KITTY [address] [place] [address] Specialist Nurse Practitioner [facility] 02/21/24 documented as of this encounter
--- OUTSIDE RECORDS SUMMARY | 2024-12-05 16:50 | XMS_ITS | Encounter Summary ---
Author Organization [facility] Address [address] [place] [address] Care Team Providers Care Pattern Technician Name Role Phone Salomón Lou MD Primary Care Provider Unavail able Hawa Torres MD Primary Care Provider Unavaila Taya Covington MD Unavailable [phone] Chandan Breen Unavailable Rancho Matthews MD Primary Care Provider [phone] [facility], [facility] Primary Care Provider UnavailRancho Brock MD Primary Care Provider [phone] Hawa Torres MD Primary Care Provider [...] MD Primary Care Provider Unavaila Jessi Cagle [facility] Unavailable [phone] Encounter Details Date Type Department Care Team Description 12/15/2014 Hospital Medical Records [address] [place] [address] Lul Briseno MD Social History Tobacco Use [...] filedocumented in this encounter Care Teams Pattern Technician Relationship Specialty Start Date End Date Salomón Lou MD PCP - General Internal Medicine 09/01/14 09/08/15 Hawa Torres MD PCP - General Internal Medicine 09/09/15 12/19/20 Rancho Matthesw MD [address] [place] [address] PCP - General Internal Medicine 12/20/20 03/22/21 [facility], Pcp [address] [place] [address] PCP - General Internal Medicine 03/23/21 04/11/21 Rancho Matthews MD [address] [place] [address] PCP - General Internal Medicine 04/12/21 04/12/21 Hawa Torres MD [address] [place] [address] PCP - General Internal Medicine 04/13/21 06/05/21 Hawa Torres MD [address] [place] [address] PCP - General Internal Medicine 06/06/21 08/07/21 [facility], Pcp [address] [place] [address] [place] [address] PCP - General Internal Medicine 08/08/21 10/27/21 Hawa Torres MD PCP - General Internal Medicine 10/28/21 04/11/22 [facility], Pcp [address] [place] [address] [place] [address] PCP - General Internal Medicine 04/12/22 05/01/22 Hawa Torres MD [address] [place] [address] PCP - General Internal Medicine 05/02/22 05/21/22 Melonie Sorensen DO [address] [place] [address] PCP - General Internal Medicine 05/22/22 09/07/22 [facility], [address] [address] PCP - General Internal Medicine 09/08/22 11/08/22 Hawa Torres MD [address] [place] [address] PCP - General Internal Medicine 11/09/22 Taya Gonzales MD Specialist Cardiology 11/01/20 Cahndan Breen PA Specialist Cardiology 11/01/20 02/20/24 Jessi Erwin DNP [address] [place] [address] Specialist Nurse Practitioner [facility] 02/21/24 documented as of this encounter
--- OUTSIDE RECORDS SUMMARY | 2024-12-05 16:50 | XMS_ITS | Encounter Summary ---
Author Organization [facility] Address [address] [place] [address] Care Team Providers Care Patent Law Specialist Name Role Phone Taya Gonzales MD Unavailable [phone] Chandan Breen Unavailable Melonie Sorensen DO Primary Care Pro vider Unavailable [facility], Pcp Primary Care Provider UnavailHawa Barron MD Primary Care Provider UnavailJessi Hogan DNP Unavailable [phone] Encounter Details Date Type Department Care Team Description 08/19/2022 [facility] Report Medical Records [address] [place] [id number] Abstract, Provider Social History Tobacco Use Types [...] on filedocumented in this encounter Care Teams Patent Law Specialist Relationship Specialty Start Date End Date Melonie Sorensen DO PCP - General Internal Medicine 05/22/22 09/07/22 [facility], [facility] PCP - General Internal Medicine 09/08/22 11/08/22 Hawa Torres MD PCP - General Internal Medicine 11/09/22 Taya Gonzales MD Specialist Cardiology 11/01/20 Chandan Breen PA Specialist Cardiology 11/01/20 02/20/24 Jessi Erwin DNP Specialist Nurse Practitioner [facility] 02/21/24 documented as of this encounter
--- OUTSIDE RECORDS SUMMARY | 2024-12-05 16:50 | XMS_ITS | Encounter Summary ---
Author Organization [facility] Address [address] [place] [address] Care Team Providers Care Piano Player Name Role Phone Taya Gonzales MD Unavailable [phone] Chandan Breen Unavailable [facility], Pcp Primary Care Provider Hawa Zavala MD Primary Care Provider Unavaila elpidio [facility], Pcp Primary Care Provider Hawa Zavala MD Primary Care Provider Unavaila Melonie Rojas DO Primary Care Pro vider Unavailable [facility], Pcp Primary Care Provider Hawa Zavala MD Primary Care Provider Unavaila Jessi Cagle DNP Unavailable [phone] Encounter Details Date Type Department Care Team Description 10/21/2021 [facility] Report Medical Records [address] [place] [phone] Abstract, Provider Social History Tobacco Use Types [...] on filedocumented in this encounter Care Teams Piano Player Relationship Specialty Start Date End Date [facility], Pcp PCP - General Internal Medicine 08/08/21 10/27/21 Hawa Torres MD PCP - General Internal Medicine 10/28/21 04/11/22 [facility], Pcp PCP - General Internal Medicine 04/12/22 05/01/22 Hawa Torres MD PCP - General Internal Medicine 05/02/22 05/21/22 Melonie Sorensen DO PCP - General Internal Medicine 05/22/22 09/07/22 [facility], Pcp PCP - General Internal Medicine 09/08/22 11/08/22 Hawa Torres MD PCP - General Internal Medicine 11/09/22 Taya Gonzales MD Specialist Cardiology 11/01/20 Chandan Breen PA Specialist Cardiology 11/01/20 02/20/24 Jessi Erwin DNP Specialist Nurse Practitioner [facility] 02/21/24 documented as of this encounter
--- OUTSIDE RECORDS SUMMARY | 2024-12-05 16:50 | XMS_ITS | Encounter Summary ---
Author Organization [facility] Address [address] [place] [address] Care Team Providers Care Mill Machinist Name Role Phone Hawa Torres MD Primary Care Provider Unavaila Taya Covington MD Unavailable [phone] Chandan Breen Unavailable Rancho Matthews MD Primary Care Provider [phone] [facility], Pcp Primary Care Provider UnavailRancho Brock MD Primary Care Provider [phone] Hawa Torres MD Primary Care Provider Unavaila Hawa Maddox MD Primary Care Provider Unavaila ble [facility], Pcp Primary Care Provider UnavailHawa Barron MD Primary Care Provider Unavaila ble [facility], Pcp Primary Care Provider Hawa Zavala MD Primary Care Provider Unavaila ble Melonie Sorensen DO Primary Care Pro vider Unavailable [facility], Pcp Primary Care Provider Hawa Zavala MD Primary Care Provider Unavaila Jessi Cagle [facility] Unavailable [phone] Reason for Visit * Reason Onset Date Comments Appointment-Internal Referral 09/10/2015 Ne phrology Encounter Details Date Type Department Care Team Description 09/10/2015 Telephone Nephrology - [place] [address] [place] [address] [id number] Mc Barragan MD [address] [place] [address] [phone] Appointment-Internal Referral (Nephrology) Social History Tobacco Use [...] on filedocumented in this encounter Care Teams Mill Machinist Relationship Specialty Start Date End Date Hawa Torres MD PCP - General Internal Medicine 09/09/15 12/19/20 Rancho Matthews MD [address] [place] [address] PCP - General Internal Medicine 12/20/20 03/22/21 [facility], [address] [address] PCP - General Internal Medicine 03/23/21 04/11/21 Rancho Matthews MD [address] [place] [address] PCP - General Internal Medicine 04/12/21 04/12/21 Hawa Torres MD [address] [place] [address] PCP - General Internal Medicine 04/13/21 06/05/21 Hawa Torres MD [address] [place] [address] PCP - General Internal Medicine 06/06/21 08/07/21 [facility], Pcp [address] [place] [address] PCP - General Internal Medicine 08/08/21 10/27/21 Hawa Torres MD PCP - General Internal Medicine 10/28/21 04/11/22 [facility], Pcp [address] [place] [address]179 PCP - General Internal Medicine 04/12/22 05/01/22 Hawa Torres MD [address] [place] [address] PCP - General Internal Medicine 05/02/22 05/21/22 Melonie Sorensen, DO [address] [place] [address] PCP - General Internal Medicine 05/22/22 09/07/22 [facility], Pcp [address] [place] [address] PCP - General Internal Medicine 09/08/22 11/08/22 Hawa Torres MD [address] [place] [address]338 PCP - General Internal Medicine 11/09/22 Taya Gonzales MD Specialist Cardiology 11/01/20 Chandan Breen PA Specialist Cardiology 11/01/20 02/20/24 Jessi Erwin DNP [address] [place] [address] Specialist Nurse Practitioner [facility] 02/21/24 documented as of this encounter
--- OUTSIDE RECORDS SUMMARY | 2024-12-05 16:50 | XMS_ITS | Encounter Summary ---
Author Organization [facility] Address [address] [place] [address] Care Team Providers Care English As A Second Language Teacher Name Role Phone Taya Gonzales MD Unavailable [phone] Chandan Breen Unavailable Hawa Torres MD Primary Care Provider Unavailamaya magallanes [facility], Pcp Primary Care Provider Hawa Zavala MD Primary Care Provider Unavaila Melonie Rojas DO Primary Care Pro vider [facility], Pcp Primary Care Provider Hawa Zavala MD Primary Care Provider Unavaila Jessi Cagle DNP Unavailable [phone] Encounter Details Date Type Department Care Team Description 02/14/2022 [facility] Report Medical Records [address] [place] [id number] Abstract, Provider Social History Tobacco Use Types [...] on filedocumented in this encounter Care Teams English As A Second Language Teacher Relationship Specialty Start Date End Date [...] Jessi Erwin DNP Specialist Nurse Practitioner [facility] 02/21/24 documented as of this encounter
--- OUTSIDE RECORDS SUMMARY | 2024-12-05 16:50 | XMS_ITS | Encounter Summary ---
Author Organization [facility] Address [address] [place] [address] Care Team Providers Care Travograph Operator Name Role Phone Taya Gonzales MD Unavailable [phone] Chandan Breen Unavailable Hawa Torres MD Primary Care Provider Unavaila ble [facility], Pcp Primary Care Provider UnavailHawa Barron MD Primary Care Provider Unavaila ble Melonie Sorensen DO Primary Care Pro vider Unavailable [facility], Pcp Primary Care Provider UnavailHawa Barron MD Primary Care Provider Unavaila ble Jessi Erwin DNP Unavailable [phone] Reason for Visit * Reason Onset Date Comments Surgery (Schedule) 11/10/2021 Encounter Details Date Type Department Care Team Description 11/10/2021 Telephone General Surgery - [address] [address] Julio C Lawler MD [address] [place] [address] Surgery (Schedule) Social History Tobacco Use Types [...] 10:21 AM EST Spoke with Zeina at [facility]. She will send a message to Dr. Gonzales regarding clearance for this patient. Dr. Gonzales had suggested additional perioperative testing before surgery. documented in this encounter Plan of Treatment Not on file documented as of this encounter Visit Diagnoses Not on filedocumented in this encounter Care Teams Travograph Operator Relationship Specialty Start Date End Date Hawa Torres MD PCP - General Internal Medicine 10/28/21 04/11/22 [facility], Pcp PCP - General Internal Medicine 04/12/22 05/01/22 Haaw Torres MD PCP - General Internal Medicine 05/02/22 05/21/22 Melonie Sorensen DO PCP - General Internal Medicine 05/22/22 09/07/22 [facility], Pcp PCP - General Internal Medicine 09/08/22 11/08/22 Hawa Torres MD PCP - General Internal Medicine 11/09/22 Taya Gonzales MD Specialist Cardiology 11/01/20 Chandan Breen PA Specialist Cardiology 11/01/20 02/20/24 Jessi Erwin DNP Specialist Nurse Practitioner Family 02/21/24 documented as of this encounter
--- OUTSIDE RECORDS SUMMARY | 2024-12-05 16:50 | XMS_ITS | Encounter Summary ---
Author Organization [facility] Address [address] [place] [address] Care Team Providers Care Open Hearth Furnace Operator Helper Name Role Phone Taya Gonzales MD Unavailable [phone] Chandan Breen Unavailable Hawa Torres MD Primary Care Provider Unavaila elpidio [facility], Pcp Primary Care Provider UnavailHawa Barron MD Primary Care Provider Unavaila ble Melonie Sorensen DO Primary Care Pro vider Unavailable [facility], Pcp Primary Care Provider UnavailHawa Barron MD Primary Care Provider Unavaila Jessi Cagle DNP Unavailable [phone] Encounter Details Date Type Department Care Team Description 11/08/2021 Pt. Non Urgent Medical Question Cardio PVC POC [phone] [facility] [address] [place] [address] Taya Gonzales MD [address] [place] [address] [phone] Social History Tobacco Use Types Packs/Day Years [...] on filedocumented in this encounter Care Teams Open Hearth Furnace Operator Helper Relationship Specialty Start Date End Date Hawa Torres MD PCP - General Internal Medicine 10/28/21 04/11/22 [facility], Pcp PCP - General Internal Medicine 04/12/22 05/01/22 Hawa Torres MD PCP - General Internal Medicine 05/02/22 05/21/22 Melonie Sorensen DO PCP - General Internal Medicine 05/22/22 09/07/22 [facility], Pcp PCP - General Internal Medicine 09/08/22 11/08/22 Hawa Torres MD PCP - General Internal Medicine 11/09/22 Taya Gonzales MD Specialist Cardiology 11/01/20 Chandan Breen PA Specialist Cardiology 11/01/20 02/20/24 Jessi Erwin DNP Specialist Nurse Practitioner [facility] 02/21/24 documented as of this encounter
--- OUTSIDE RECORDS SUMMARY | 2024-12-05 16:50 | XMS_ITS | Encounter Summary ---
Author Organization [facility] Address [address] [place] [phone] Phone Care Team Providers Care Central Scheduler Name Role Phone Unavailable Primary Care Provider Unavailabl e Encounter Details Date Type Department Care Team (Late st Contact Info) Description 11/12/2024 Treatment [facility] [address] [address] Aldo Rice MD [address] [address] Social History Tobacco Use Types [...] care for end stage renal disease. Attending Mine Car Repairer: ALDO RICE MD Dialysis Location: [facility] Schedule: Shift: 1 HOME MEDICATIONS Current [...]
--- OUTSIDE RECORDS SUMMARY | 2024-12-05 16:50 | XMS_ITS | Encounter Summary ---
Author Organization [facility] Address [address] [place] [address] Care Team Providers Care Review Manager Name Role Phone Salomón Lou MD Primary Care Provider Unavail able Hawa Torres MD Primary Care Provider Unavaila Taya Covington MD Unavailable [phone] Chandan Breen Unavailable Rancho Matthews MD Primary Care Provider [facility], [facility] Primary Care Provider UnavailRancho Brock MD Primary Care Provider [phone] Hawa Torres MD Primary Care Provider [...] Cagle [facility] Unavailable [phone] Encounter Details Date Type Department Care Team Description 03/01/2015 Orders Only Nephrology - [place] [address] [place] [address] Mc Barragan MD [address] [place] [address] Social History Tobacco Use Types Packs/Day Years [...] as of this encounter Results * (ABNORMAL) 25 HYDROXY INCLUDES FRACTIONS IF PERFORMED (03/01/2015 9:49 AM EDT) Pathologist [facility] 25-HYDROXY VITAMIN D TOTAL 28(L) 30 - 80 ng/ml 03/02/2015 11:16 AM EDT [facility] Comment: Vitamin D Reference Ranges ??Deficiency: ? <20 ng/mL ??Insufficiency: ?20-29 ng/mL ??Optimal: ?30-80 ng/mL ??High: ? >80 ng/mL 03/01/2015 9:49 AM EDT 03/01/2015 9:50 AM EDT Mc Barragan MD LAB [address] * (ABNORMAL) PTH INTACT (03/01/2015 9:49 AM EDT) INTACT PTH 247(H) 14 - 72 pg/mL 03/01/2015 2:46 PM EDT [facility] 03/01/2015 9:49 AM EDT 03/01/2015 9:50 AM EDT Mc Barragan MD LAB [facility]LA[facility] [employer] documented in this encounter Visit Diagnoses Not on filedocumented in this encounter Care Teams Review Manager Relationship Specialty Start Date End Date Salomón Luo MD PCP - General Internal Medicine 09/01/14 09/08/15 Hawa Torres MD PCP - General Internal Medicine 09/09/15 12/19/20 Rancho Matthews MD [address] [place] [address] PCP - General Internal Medicine 12/20/20 03/22/21 [facility], Pcp [address] [place] [address], [place] [address] PCP - General Internal Medicine 03/23/21 04/11/21 Rancho Matthews MD [address] [place] [address] PCP - General Internal Medicine 04/12/21 04/12/21 Hawa Torres MD [address] [place] [address], [place] [address] PCP - General Internal Medicine 04/13/21 06/05/21 Hawa Torres MD [address] [place] [address] PCP - General Internal Medicine 06/06/21 08/07/21 [facility], Pcp [address] [place] [address], [place] [address] PCP - General Internal Medicine 08/08/21 10/27/21 Hawa Torres MD PCP - General Internal Medicine 10/28/21 04/11/22 [facility], Pcp [address] [place] [address], [place] [address] PCP - General Internal Medicine 04/12/22 05/01/22 Hawa Torres MD [address] [place] [address] PCP - General Internal Medicine 05/02/22 05/21/22 Melonie Sorensen, [address] [place] [address], [place] [address] PCP - General Internal Medicine 05/22/22 09/07/22 [facility], Pcp [address] [place] [address], [place] [address] PCP - General Internal Medicine 09/08/22 11/08/22 Hawa Torres MD [address] [place] [address] PCP - General Internal Medicine 11/09/22 Taya Gonzales MD Specialist Cardiology 11/01/20 Chandan Breen PA Specialist Cardiology 11/01/20 02/20/24 Jessi Erwin DNP [address] [place] [address] [id number] Specialist Nurse Practitioner [facility] 02/21/24 documented as of this encounter
--- OUTSIDE RECORDS SUMMARY | 2024-12-05 16:50 | XMS_ITS | Clinical Summary ---
Author Organization [facility] Address [address] [place] [address] Phone Care Team Providers Care Rn First Assist Name Role Phone Unavailable Primary Care Provider [...] 12/01/2024 Treatment [facility] [address] [address] Ryan Graf MD End stage renal disease; Dependence on renal dialysis 11/26/2024 Treatment [facility] [address] [address] Ryan Graf MD End stage renal disease; Dependence on renal dialysis 11/24/2024 Treatment [facility] [address] [address] Ryan Graf MD End stage renal disease; Dependence on renal dialysis 11/12/2024 Treatment [facility] [address] [address] Ryan Graf MD 11/10/2024 Treatment [facility] [address] [address] Ryan Graf MD 11/03/2024 Treatment [facility] [address] [address] Ryan Graf MD 10/27/2024 Treatment [facility] [address] [address] Ryan Graf MD 10/20/2024 Treatment [facility] [address] [address] Ryan Graf MD 10/13/2024 Treatment [facility] [address] [address] Ryan Graf MD 10/06/2024 Treatment [facility] [address] [address] Ryan Graf MD 09/29/2024 Treatment [facility] [address] [address] Ryan Graf MD 09/16/2024 Treatment [facility] [address] [address] Ryan Graf MD 09/10/2024 Orders Only [facility] [address] [address] Ryan Graf MD 09/08/2024 Treatment [facility] [address] [address] Ryan Graf MD from Last 3 Months [...] Final Resul t [facility] [address] [place] [address] * (ABNORMAL) SPECIAL CHEMISTRY (08/30/2022 6:00 AM EST) Hemoglobin A1C 7.3(H) 4.8 - 5.9 % [facility] [employer] [facility] 08/30/2022 6:00 AM EST 08/31/2022 6:56 AM EST Narrative [facility] - 08/30/2022 6:00 AM EST Unless otherwise specified, test(s) performed at: [facility], [address] [place] [id number] OIL DRILLING ENGINEER: Emery Muller M.D. For any questions, please call customer service at FREQUENCY:MONTHLY Resulting Agency Comment Specimen source: Blood Jt Mckeon MD LAB BLOOD BANK TEST ORDERABLES Final Result [facility] from Last 3 Months or Most Recently Relevant to Health Maintenance Insurance [facility]
--- OUTSIDE RECORDS SUMMARY | 2024-12-05 16:50 | XMS_ITS | Encounter Summary ---
Author Organization [facility] Address [address] [place] [address] Care Team Providers Care Science Liaison Name Role Phone Taya Gonzales MD Unavailable [phone] Chandan Breen Unavailable Hawa Torres MD Primary Care Provider Unavaila elpidio [facility], Pcp Primary Care Provider UnavailHawa Barron MD Primary Care Provider Unavaila ble Melonie Sorensen DO Primary Care Pro vider Unavailable [facility], Pcp Primary Care Provider UnavailHawa Barron MD Primary Care Provider Unavaila ble Jessi Erwin DNP Unavailable [phone] Encounter Details Date Type Department Care Team Description 11/04/2021 Pt. Non Urgent Medical Question General Surgery - [address] [address] Julio C Lawler MD [address] [place] [address] Social History Tobacco Use Types Packs/Day Years [...] on filedocumented in this encounter Care Teams Science Liaison Relationship Specialty Start Date End Date Hawa Torres MD PCP - General Internal Medicine 10/28/21 04/11/22 [facility], Pcp PCP - General Internal Medicine 04/12/22 05/01/22 Hawa Torres MD PCP - General Internal Medicine 05/02/22 05/21/22 Melonie Sorensen DO PCP - General Internal Medicine 05/22/22 09/07/22 [facility], Pcp PCP - General Internal Medicine 09/08/22 11/08/22 Hawa Torres MD PCP - General Internal Medicine 11/09/22 Taya Gonzales MD Specialist Cardiology 11/01/20 Chandan Breen PA Specialist Cardiology 11/01/20 02/20/24 Jessi Erwin DNP Specialist Nurse Practitioner Family 02/21/24 documented as of this encounter
--- OUTSIDE RECORDS SUMMARY | 2024-12-05 16:50 | XMS_ITS | Encounter Summary ---
Author Organization [facility] Address [address] [place] [phone] Phone Care Team Providers Care Cataloging Assistant Name Role Phone Unavailable Primary Care Provider Unavailabl e Encounter Details Date Type Department Care Team (Late st Contact Info) Description 12/01/2024 Treatment [facility] [address] [address] Aldo Rice MD [address] [address] End stage renal disease; Dependence [...] care for end stage renal disease. Attending Cotton Buyer: ALDO RICE MD Dialysis Location: [facility] Schedule: Shift: 1 HOME MEDICATIONS [...]
--- OUTSIDE RECORDS SUMMARY | 2024-12-05 16:50 | XMS_ITS | Encounter Summary ---
Author Organization [facility] Address [address] [place] [address] Care Team Providers Care Director Of Security Name Role Phone Taya Gonzales MD Unavailable [phone] Chnadan Breen Unavailable Hawa Torres MD Primary Care Provider Unavaila elpidio [facility], Pcp Primary Care Provider UnavailHawa Barron MD Primary Care Provider Unavaila ble Melonie Sorensen DO Primary Care Pro vider Unavailable [facility], Pcp Primary Care Provider UnavailHawa Barron MD Primary Care Provider Unavaila ble Jessi Erwin DNP Unavailable [phone] Encounter Details Date Type Department Care Team Description 12/06/2021 Orders Only Medical Records [address] [place] [address] Julio C Lawler MD [address] [place] [address] Social History Tobacco Use Types Packs/Day Years [...] in this encounter Care Teams Director Of Security Relationship Specialty Start Date End Date Hawa Torres MD PCP - General Internal Medicine 10/28/21 04/11/22 [facility], Pcp PCP - General Internal Medicine 04/12/22 05/01/22 Hawa Torres MD PCP - General Internal Medicine 05/02/22 05/21/22 Melonie Sorensen DO PCP - General Internal Medicine 05/22/22 09/07/22 [facility], Pcp PCP - General Internal Medicine 09/08/22 11/08/22 Hawa Torres MD PCP - General Internal Medicine 11/09/22 Taya Gonzales MD Specialist Cardiology 11/01/20 Chandan Breen PA Specialist Cardiology 11/01/20 02/20/24 Jessi Erwin DNP Specialist Nurse Practitioner Family 02/21/24 documented as of this encounter
--- OUTSIDE RECORDS SUMMARY | 2024-12-05 16:50 | XMS_ITS | Encounter Summary ---
Author Organization [facility] Address [address] [place] [phone] Phone Care Team Providers Care Outside Sales Account Manager Name Role Phone Unavailable Primary Care Provider Unavailabl e Encounter Details Date Type Department Care Team (Late st Contact Info) Description 11/24/2024 Treatment [facility] [address] [address] Aldo Rice MD [address] [address] End stage renal disease; Dependence [...] care for end stage renal disease. Attending Dude Ranch Manager: ALDO RICE MD Dialysis Location: [facility] Schedule: Shift: 1 OVERVIEW [...]
--- OUTSIDE RECORDS SUMMARY | 2024-12-05 16:51 | XMS_ITS | Encounter Summary ---
Author Organization [facility] Address [address] [place] [address] Care Team Providers Care Residential Plumber Name Role Phone Taya Gonzales MD Unavailable [phone] Chandan Breen Unavailable Rancho Matthews MD Primary Care Provider [phone] [facility], Pcp Primary Care Provider UnavailRancho Borck MD Primary Care Provider [phone] Hawa Torres MD Primary Care Provider Unavaila Hawa Maddox MD Primary Care Provider Unavaila ble [facility], Pcp Primary Care Provider UnavailHawa Barron MD Primary Care Provider Unavaila ble [facility], Pcp Primary Care Provider UnavailHawa Barron MD Primary Care Provider Unavaila ble Melonie Sorensen DO Primary Care Pro vider Unavailable [facility], Pcp Primary Care Provider UnavailHawa Barron MD Primary Care Provider Unavaila ble Jessi Erwin [facility] Unavailable [phone] Encounter Details Date Type Department Care Team Description 03/18/2021 Pt. Non Urgent Medical Question Adult Medicine [address] [phone] Rancho Matthews MD [address] [place] [address] Social History Tobacco Use Types Packs/Day [...] on filedocumented in this encounter Care Teams Residential Plumber Relationship Specialty Start Date End Date Rancho Matthews MD [address] [place] [address] PCP - General Internal Medicine 12/20/20 03/22/21 [facility], Pcp [address] [place] [address] PCP - General Internal Medicine 03/23/21 04/11/21 Rancho Matthews MD [address] [place] [address] PCP - General Internal Medicine 04/12/21 04/12/21 Hawa Torres MD [address] [place] [address], [place] [address] PCP - General Internal Medicine 04/13/21 06/05/21 Hawa Torres MD [address] [place] [address], [place] [address] PCP - General Internal Medicine 06/06/21 08/07/21 [facility], Pcp [address] [place] [address], [place] [address] PCP - General Internal Medicine 08/08/21 10/27/21 Hawa Torres MD [address] [place] [address], [place] [address] PCP - General Internal Medicine 10/28/21 04/11/22 [facility], Pcp [address] [place] [address], [place] [address] PCP - General Internal Medicine 04/12/22 05/01/22 Hawa Torres MD [address] [place] [address], [place] [address] PCP - General Internal Medicine 05/02/22 05/21/22 Melonie Sorensen, DO [address] [place] [address] PCP - General Internal Medicine 05/22/22 09/07/22 [facility], Pcp [address] [place] [address], [place] [address] PCP - General Internal Medicine 09/08/22 11/08/22 Hawa Torres MD [address] [place] [address] PCP - General Internal Medicine 11/09/22 Taya Gonzales MD Specialist Cardiology 11/01/20 Chandan Breen PA Specialist Cardiology 11/01/20 02/20/24 Jessi Erwin DNP [address] [place] [address], [place] [address] Specialist Nurse Practitioner Family 02/21/24 documented as of this encounter
--- OUTSIDE RECORDS SUMMARY | 2024-12-05 16:51 | XMS_ITS | Encounter Summary ---
Author Organization [facility] Address [address] [place] [address] Care Team Providers Care Knock Up Assembler Name Role Phone Hawa Torres MD Primary [...] Unavaila Jessi Cagle [facility] Unavailable [phone] Encounter Details Date Type Department Care Team Description 04/12/2017 Hospital Medical Records [address] [place] [address] Cecilio Singh MD [address] [place] [address] [phone] Social History Tobacco Use Types Packs/Day Years [...] on filedocumented in this encounter Care Teams Knock Up Assembler Relationship Specialty Start Date End Date Hawa Torres MD PCP - General Internal Medicine 09/09/15 12/19/20 Rancho Matthews MD [address] [place] [address] PCP - General Internal Medicine 12/20/20 03/22/21 [facility]cp [address] [place] [address] PCP - General Internal Medicine 03/23/21 04/11/21 Rancho Matthews MD [address] [place] [address] PCP - General Internal Medicine 04/12/21 04/12/21 Hawa Torres MD [address] [place] [address] PCP - General Internal Medicine 04/13/21 06/05/21 Hawa Torres MD [address] [place] [address] PCP - General Internal Medicine 06/06/21 08/07/21 [facility] Pcp [address] [place], [place] [address] [place] [address] PCP - General Internal Medicine 08/08/21 10/27/21 Hawa Torres MD PCP - General Internal Medicine 10/28/21 04/11/22 [facility], Pcp [address] [place] [address] PCP - General Internal Medicine 04/12/22 05/01/22 Hawa Torres MD [address] [place] [address] PCP - General Internal Medicine 05/02/22 05/21/22 Melonie Sorensen DO [address] [place] [address] PCP - General Internal Medicine 05/22/22 09/07/22 [facility], [address] [address] PCP - General Internal Medicine 09/08/22 11/08/22 Hawa Torres MD [address] [place] [address] PCP - General Internal Medicine 11/09/22 Taya Gonzales MD Specialist Cardiology 11/01/20 Chandan Breen PA Specialist Cardiology 11/01/20 02/20/24 Jessi Erwin DNP [address] [place] [address] Specialist Nurse Practitioner Family 02/21/24 documented as of this encounter
--- OUTSIDE RECORDS SUMMARY | 2024-12-05 16:51 | XMS_ITS | Encounter Summary ---
Author Organization [facility] Address [address] [place] [address] Care Team Providers Care Tour Production Supervisor Name Role Phone Lul Lou MD Primary Care Provider Unavailab Salomón Cummings MD Primary Care Provider Unavail able Hawa Torres MD Primary Care Provider Unavaila Hawa Maddox MD Primary Care Provider Unavaila Taya Covington MD Unavailable [phone] Chandan Breen Unavailable Rancho Matthews MD Primary Care Provider [phone] [facility], Pcp Primary Care Provider UnavailRancho Brock MD Primary Care Provider [phone] Hawa Torres MD Primary Care Provider Unavaila Hawa Maddox MD Primary Care Provider Unavaila ble [facility], Pcp Primary Care Provider UnavailHawa Barron MD Primary Care Provider Unavaila ble [facility], Pcp Primary Care Provider UnavailHawa Barron MD Primary Care Provider Unavaila ble Melonie Sorensen DO Primary Care Pro vider Unavailable [facility], Pcp Primary Care Provider UnavailHawa Barron MD Primary Care Provider Unavaila ble Jessi Erwin DNP Unavailable [phone] Encounter Details Date Type Department Care Team Description 11/29/2012 Orders Only Medicine/Pediatrics - [address] [phone] Lul Lou MD Osteopenia (Primary Dx) Social History Tobacco Use Types [...] as of this encounter Visit Diagnoses Diagnosis Osteopenia- Primary Disorder of bone and cartilage, unspecified documented in this encounter Care Teams Tour Production Supervisor Relationship Specialty Start Date End Date Lul Lou MD PCP - General Internal Medicine 05/16/12 06/06/14 Salomón Lou MD PCP - General Internal Medicine 09/01/14 09/08/15 Hawa Torres MD PCP - General Internal Medicine 09/09/15 12/19/20 Hawa Torres MD PCP - General 06/07/14 08/31/14 Rancho Matthews MD [address] [place] [address] PCP - General Internal Medicine 12/20/20 03/22/[address] [address] PCP - General Internal Medicine 03/23/21 04/11/21 Rancho Matthews MD [address] [place] [address] PCP - General Internal Medicine 04/12/21 04/12/21 Hawa Torres MD [address] [place] [address] PCP - General Internal Medicine 04/13/21 06/05/21 Hawa Torres MD [address] [place] [address] PCP - General Internal Medicine 06/06/21 08/07/21 [facility], Pcp [address] [place] [address] PCP - General Internal Medicine 08/08/21 10/27/21 Hawa Torres MD PCP - General Internal Medicine 10/28/21 04/11/22 [facility], Pcp [address] [place] [address] PCP - General Internal Medicine 04/12/22 05/01/22 Hawa Torres MD [address] [place] [address] PCP - General Internal Medicine 05/02/22 05/21/22 Melonie Sorensen, DO [address] [place] [address] PCP - General Internal Medicine 05/22/22 09/07/22 [facility], Pcp [address] [place] [address] PCP - General Internal Medicine 09/08/22 11/08/22 Hawa Torres MD [address] [place] [address] PCP - General Internal Medicine 11/09/22 Taya Gonzales MD Specialist Cardiology 11/01/20 Chandan Breen PA Specialist Cardiology 11/01/20 02/20/24 Jessi Erwin DNP [address] [place] [address] Specialist Nurse Practitioner Family 02/21/24 documented as of this encounter
--- OUTSIDE RECORDS SUMMARY | 2024-12-05 16:51 | XMS_ITS | Encounter Summary ---
Author Organization [facility] Address [address] [place] [address] Care Team Providers Care Import/Export Freight Forwarder Name Role Phone Hawa Torres MD Primary Care Provider UnavailTaya Lira MD Unavailable [phone] Chandan Breen Unavailable Rancho Matthews MD Primary Care Provider + [facility], Pcp Primary Care Provider UnavailRancho Brock MD Primary Care Provider [phone] Hawa Torres MD Primary Care Provider Unavaila Hawa Maddox MD Primary Care Provider Unavaila elpidio [facility], Pcp Primary Care Provider UnavailHawa Barron MD Primary Care Provider Unavaila ble [facility], Pcp Primary Care Provider Hawa Zavala MD Primary Care Provider Unavaila Melonie Rojas DO Primary Care Pro vider Unavailable [facility], Pcp Primary Care Provider Hawa Zavala MD Primary Care Provider Unavaila Jessi Cagle [facility] Unavailable + [phone] Encounter Details Date Type Department Care Team Description 04/26/2020 Telephone Medicine/Pediatrics - [place] [address] [place] [phone] [place] Berrios MD Social History Tobacco Use [...] on filedocumented in this encounter Care Teams Import/Export Freight Forwarder Relationship Specialty Start Date End Date Hawa Torres MD PCP - General Internal Medicine 09/09/15 12/19/20 Rancho Matthews MD [address] [place] [address] PCP - General Internal Medicine 12/20/20 03/22/21 [facility], Pcp [address] [place] [address] PCP - General Internal Medicine 03/23/21 04/11/21 Rancho Matthews MD [address] [place] [address] PCP - General Internal Medicine 04/12/21 04/12/21 Hawa Torres MD [address] [place] [address] PCP - General Internal Medicine 04/13/21 06/05/21 Hawa Torres MD [address] [place] [address] PCP - General Internal Medicine 06/06/21 08/07/21 [facility], Pcp [address] [place] [address] PCP - General Internal Medicine 08/08/21 10/27/21 Hawa Torres MD PCP - General Internal Medicine 10/28/21 04/11/22 [facility], Pcp [address] [place] [address] PCP - General Internal Medicine 04/12/22 05/01/22 Hawa Torres MD [address] [place] [address] PCP - General Internal Medicine 05/02/22 05/21/22 Melonie Sorensen DO [address] [place] [address] PCP - General Internal Medicine 05/22/22 09/07/22 [facility], [address] [address] PCP - General Internal Medicine 09/08/22 11/08/22 Hawa Torres MD [address] [place] [address] PCP - General Internal Medicine 11/09/22 Taya Gonzales MD Specialist Cardiology 11/01/20 Chandan Breen PA Specialist Cardiology 11/01/20 02/20/24 Jessi Erwin DNP [address] [place] [address] Specialist Nurse Practitioner [facility] 02/21/24 documented as of this encounter
--- OUTSIDE RECORDS SUMMARY | 2024-12-05 16:51 | XMS_ITS | Encounter Summary ---
Author Organization [facility] Address [address] [place] [address] Care Team Providers Care Construction Equipment Overhauler Name Role Phone Hawa Torres MD Primary Care Provider Unavaila Taya Covington MD Unavailable [phone] Chadnan Breen Unavailable Rancho Matthews MD Primary Care Provider [phone] [facility], [facility] Primary Care Provider UnavailRancho Brock MD Primary Care Provider [phone] Hawa Torres MD Primary Care Provider Unavaila Hawa Maddox MD Primary Care Provider Unavaila elpidio [facility], Pcp Primary Care Provider UnavailHawa Barron MD Primary Care Provider Unavaila ble [facility], Pcp Primary Care Provider Hawa Zavala MD Primary Care Provider Unavaila Melonie Rojas DO Primary Care Pro vider Unavailable [facility], Pcp Primary Care Provider Hawa Zavala MD Primary Care Provider Unavaila Jessi Cagle [facility] Unavailable + Reason for Visit * Reason Onset Date Comments Abnormal Mammogram 09/03/2020 Encounter Details Date Type Department Care Team Description 09/03/2020 Telephone Radiology - [place] [address] [place] [address] [id number] Radiology, Authorizing Abnormal Mammogram Social History Tobacco [...] on filedocumented in this encounter Care Teams Construction Equipment Overhauler Relationship Specialty Start Date End Date Hawa Torres MD PCP - General Internal Medicine 09/09/15 12/19/20 Rancho Matthews MD [address] [place] [address]90 PCP - General Internal Medicine 12/20/20 03/22/21 [facility], [address] [address] PCP - General Internal Medicine 03/23/21 04/11/21 Rancho Matthews MD [address] [place] [address] PCP - General Internal Medicine 04/12/21 04/12/21 Hawa Torres MD [address] [place] [address] 59843 PCP - General Internal Medicine 04/13/21 06/05/21 Hawa Torres MD [address] [place] [address] 02943 PCP - General Internal Medicine 06/06/21 08/07/21 [facility], Pcp [address] [place] [address] 72169 PCP - General Internal Medicine 08/08/21 10/27/21 Hawa Torres MD PCP - General Internal Medicine 10/28/21 04/11/22 [facility], Pcp [address] [place] [address] 85914 PCP - General Internal Medicine 04/12/22 05/01/22 Hawa Torres MD [address] [place] [address] 27083 PCP - General Internal Medicine 05/02/22 05/21/22 Melonie Sorensen, [address] [place] [address] 13800 PCP - General Internal Medicine 05/22/22 09/07/22 [facility], Pcp [address] [place] [address] 19035 PCP - General Internal Medicine 09/08/22 11/08/22 Hawa Torres MD [address] [place] [address] 6[address]21 PCP - General Internal Medicine 11/09/22 Taya Gonzales MD Specialist Cardiology 11/01/20 Chandan Breen PA Specialist Cardiology 11/01/20 02/20/24 Jessi Erwin DNP [address] [place] [address]2016 Specialist Nurse Practitioner [facility] 02/21/24 documented as of this encounter
--- OUTSIDE RECORDS SUMMARY | 2024-12-05 16:51 | XMS_ITS | Encounter Summary ---
Author Organization [facility] Address [address] [place] [address] Care Team Providers Care Warehouse Traffic Supervisor Name Role Phone Lul Lou MD Primary Care Provider Unavailab Salomón Cummings MD Primary Care Provider Unavail able Hawa Torres MD Primary Care Provider Unavaila Hawa Maddox MD Primary Care Provider Unavaila Taya Covington MD Unavailable [phone] Chandan Breen Unavailable Rancho Matthews MD Primary Care Provider [phone] [facility], Pcp Primary Care Provider UnavailRancho Brock MD Primary Care Provider [phone] Hawa Torres MD Primary Care Provider Unavaila Hawa Maddox MD Primary Care Provider Unavaila ble [facility], Pcp Primary Care Provider UnavailHawa Barron MD Primary Care Provider Unavaila ble [facility], Pcp Primary Care Provider UnavailHawa Barron MD Primary Care Provider Unavaila ble Melonie Sorensen DO Primary Care Pro vider Unavailable [facility], Pcp Primary Care Provider UnavailHawa Barron MD Primary Care Provider Unavaila ble Jessi Erwin DNP Unavailable [phone] Encounter Details Date Type Department Care Team Description 11/22/2012 Business Doc Medical Records [address] [place] [id number] Abstract, Provider Social History Tobacco Use Types [...] on filedocumented in this encounter Care Teams Warehouse Traffic Supervisor Relationship Specialty Start Date End Date Lul Lou MD PCP - General Internal Medicine 05/16/12 06/06/14 Salomón Lou MD PCP - General Internal Medicine 09/01/14 09/08/15 Hawa Torres MD PCP - General Internal Medicine 09/09/15 12/19/20 Hawa Torres MD PCP - General 06/07/14 08/31/14 Rancho Matthews MD [address] [place], [place] [id number] PCP - General Internal Medicine 12/20/20 03/22/21 [facility], [address] [address] PCP - General Internal Medicine 03/23/21 04/11/21 Rancho Matthews MD [address] [place] [address] 07362 PCP - General Internal Medicine 04/12/21 04/12/21 Hawa Torres MD [address] [place] [address] 16685 PCP - General Internal Medicine 04/13/21 06/05/21 Hawa Torres MD [address] [place] [address] 16479 PCP - General Internal Medicine 06/06/21 08/07/21 [facility], [address] [address] PCP - General Internal Medicine 08/08/21 10/27/21 Hawa Torres MD PCP - General Internal Medicine 10/28/21 04/11/22 [facility], Pcp [address] [place] [address] 29277 PCP - General Internal Medicine 04/12/22 05/01/22 Hawa Torres MD [address] [place] [address] 88359 PCP - General Internal Medicine 05/02/22 05/21/22 Melonie Sorensen DO [address] [place] [address] 96899 PCP - General Internal Medicine 05/22/22 09/07/22 [facility], Pcp [address] [place] [address] 81387 PCP - General Internal Medicine 09/08/22 11/08/22 Hawa Torres MD [address] [place] [address] 73367 PCP - General Internal Medicine 11/09/22 Taya Gonzales MD Specialist Cardiology 11/01/20 Chandan Breen PA Specialist Cardiology 11/01/20 02/20/24 Jessi Erwin, KITTY [address] [place] [address] Specialist Nurse Practitioner [facility] 02/21/24 documented as of this encounter
--- OUTSIDE RECORDS SUMMARY | 2024-12-05 16:51 | XMS_ITS | Encounter Summary ---
Author Organization [facility] Address [address] [place] [address] Care Team Providers Care Strategic Debriefing Specialist Name Role Phone Hawa Torres MD Primary Care Provider UnavailTaya Lira MD Unavailable [phone] Chandan Breen Unavailable Rancho Matthews MD Primary Care Provider + [facility], [facility] Primary Care Provider UnavailRancho Brock MD Primary Care Provider [phone] Hawa Torres MD Primary Care Provider Unavaila Hawa Maddox MD Primary Care Provider Unavaila elpidio [facility], Pcp Primary Care Provider UnavailHawa Barron MD Primary Care Provider Unavaila ble [facility], Pcp Primary Care Provider Hawa Zavala MD Primary Care Provider Unavaila Melonie Rojas DO Primary Care Pro vider Unavailable [facility], Pcp Primary Care Provider Hawa Zavala MD Primary Care Provider Unavaila Jessi Cagle [facility] Unavailable [phone] Encounter Details Date Type Department Care Team Description 01/17/2018 Hospital Medical Records [address] [place] [address] Social History Tobacco Use Types Packs/Day Years [...] on filedocumented in this encounter Care Teams Strategic Debriefing Specialist Relationship Specialty Start Date End Date Hawa Torres MD PCP - General Internal Medicine 09/09/15 12/19/20 Rancho Matthews MD [address] [place] [address]45 PCP - General Internal Medicine 12/20/20 03/22/21 [facility], Pcp [address] [place] [address] 73174 PCP - General Internal Medicine 03/23/21 04/11/21 Rancho Matthews MD [address] [place] [address] 17448 PCP - General Internal Medicine 04/12/21 04/12/21 Hawa Torres MD [address] [place] [address] 48709 PCP - General Internal Medicine 04/13/21 06/05/21 Hawa Torres MD [address] [place] [address] 57122 PCP - General Internal Medicine 06/06/21 08/07/21 [facility], Pcp [address] [place] [address] 39778 PCP - General Internal Medicine 08/08/21 10/27/21 Hawa Torres MD PCP - General Internal Medicine 10/28/21 04/11/22 [facility], Pcp [address] [place] [address] 77018 PCP - General Internal Medicine 04/12/22 05/01/22 Hawa Torres MD [address] [place] [address] 66404 PCP - General Internal Medicine 05/02/22 05/21/22 Melonie Sorensen DO [address] [place] [address] 40346 PCP - General Internal Medicine 05/22/22 09/07/22 [facility], Pcp [address] [place] [address] 99105 PCP - General Internal Medicine 09/08/22 11/08/22 Hawa Torres MD [address] [place] [address] 39846 PCP - General Internal Medicine 11/09/22 Taya Gonzales MD Specialist Cardiology 11/01/20 Chandan Breen PA Specialist Cardiology 11/01/20 02/20/24 Jessi Erwin, KITTY [address] [place] [address] Specialist Nurse Practitioner Family 02/21/24 documented as of this encounter
--- OUTSIDE RECORDS SUMMARY | 2024-12-05 16:51 | XMS_ITS | Encounter Summary ---
Author Organization [facility] Address [address] [place] [address] Care Team Providers Care Probation Manager Name Role Phone Hawa Torres MD Primary Care Provider UnavailTaya Lira MD Unavailable [phone] Chandan Breen Unavailable Rancho Matthews MD Primary Care Provider [phone] [facility], Pcp Primary Care Provider UnavailRancho Brock MD Primary Care Provider [phone] Hawa Torres MD Primary Care Provider Unavaila Hawa Maddox MD Primary Care Provider Unavaila elpidio [facility], Pcp Primary Care Provider Hawa Zavala MD Primary Care Provider Unavaila ble [facility], Pcp Primary Care Provider Hawa Zavala MD Primary Care Provider Unavaila Melonie Rojas DO Primary Care Pro vider Unavailable [facility], Pcp Primary Care Provider Hawa Zavala MD Primary Care Provider Unavaila Jessi Cagle [facility] Unavailable [phone] Encounter Details Date Type Department Care Team Description 01/03/2018 [facility] Medical Records [address] [place] [address] Abstract, Provider Social History Tobacco Use Types [...] on filedocumented in this encounter Care Teams Probation Manager Relationship Specialty Start Date End Date Hawa Torres MD PCP - General Internal Medicine 09/09/15 12/19/20 Racnho Matthews MD [address] [place] [address] PCP - General Internal Medicine 12/20/20 03/22/21 [facility], Pcp [address] [place] [address] PCP - General Internal Medicine 03/23/21 04/11/21 Rancho Matthews MD [address] [place] [address] 04382 PCP - General Internal Medicine 04/12/21 04/12/21 Hawa Torres MD [address] [place] [address] 75327 PCP - General Internal Medicine 04/13/21 06/05/21 Hawa Torres MD [address] [place] [address] 28909 PCP - General Internal Medicine 06/06/21 08/07/21 [facility], Pcp [address] [place] [address] 18915 PCP - General Internal Medicine 08/08/21 10/27/21 Hawa Torres MD PCP - General Internal Medicine 10/28/21 04/11/22 [facility], Pcp [address] [place] [address] 45187 PCP - General Internal Medicine 04/12/22 05/01/22 Hawa Torres MD [address] [place] [address] 02595 PCP - General Internal Medicine 05/02/22 05/21/22 Melonie Sorensen DO [address] [place] [address] 24332 PCP - General Internal Medicine 05/22/22 09/07/22 [facility], Pcp [address] [place] [address] 21280 PCP - General Internal Medicine 09/08/22 11/08/22 Hawa Torres MD [address] [place], [place] [phone] PCP - General Internal Medicine 11/09/22 Taya Gonzales MD Specialist Cardiology 11/01/20 Chandan Breen PA Specialist Cardiology 11/01/20 02/20/24 Jessi Erwin, KITTY [address] [place] [address] Specialist Nurse Practitioner [facility] 02/21/24 documented as of this encounter
--- OUTSIDE RECORDS SUMMARY | 2024-12-05 16:51 | XMS_ITS | Encounter Summary ---
Author Organization [facility] Address [address] [place] [address] Care Team Providers Care Slip Cover Sewer Name Role Phone Taya Gonzales MD Unavailable [phone] Chandan Breen Unavailable [facility], Pcp Primary Care Provider Hawa Zavala MD Primary Care Provider UnavailJessi Hogan [facility] Unavailable [phone] Encounter Details Date Type Department Care Team Description 10/26/2022 Best Worker Report Medical Records [address] [place] [address] Hawa Torres MD Social History Tobacco Use [...] on filedocumented in this encounter Care Teams Slip Cover Sewer Relationship Specialty Start Date End Date Community, Pcp PCP - General Internal Medicine 09/08/22 11/08/22 Hawa Torres MD PCP - General Internal Medicine 11/09/22 Taya Gonzales MD Specialist Cardiology 11/01/20 Chandan Breen PA Specialist Cardiology 11/01/20 02/20/24 Jessi Erwin DNP Specialist Nurse Practitioner [facility] 02/21/24 documented as of this encounter
--- OUTSIDE RECORDS SUMMARY | 2024-12-05 16:51 | XMS_ITS | Encounter Summary ---
Author Organization [facility] Address [address] [place] [address] Care Team Providers Care Painting Worker Name Role Phone Taya Gonzales MD Unavailable [phone] Chandan Breen Unavailable Melonie Sorensen DO Primary Care Pro vider Unavailable [facility], Pcp Primary Care Provider UnavailHawa Barron MD Primary Care Provider UnavailJessi Hogan DNP Unavailable [phone] Reason for Visit * Reason Onset Date Comments APPOINTMENT 06/12/2022 Encounter Details Date Type Department Care Team Description 06/12/2022 Telephone Cardio PVC POC [address] [place] [address] Nikhil Sorenson MD [address] [place] [address] [id number] APPOINTMENT Social History Tobacco Use Types Packs/Day [...] on filedocumented in this encounter Care Teams Painting Worker Relationship Specialty Start Date End Date Melonie Sorensen DO PCP - General Internal Medicine 05/22/22 09/07/22 [facility], Pcp PCP - General Internal Medicine 09/08/22 11/08/22 Hawa Torres MD PCP - General Internal Medicine 11/09/22 Taya Gonzales MD Specialist Cardiology 11/01/20 Chandan Breen PA Specialist Cardiology 11/01/20 02/20/24 Jessi Erwin DNP Specialist Nurse Practitioner Family 02/21/24 documented as of this encounter
--- OUTSIDE RECORDS SUMMARY | 2024-12-05 16:51 | XMS_ITS | Encounter Summary ---
Author Organization [facility] Address [address] [place] [address] Care Team Providers Care Nursery School Teacher Name Role Phone Taya Gonzales MD Unavailable [phone] Chandan Breen Unavailable [facility], Pcp Primary Care Provider Hawa Zavala MD Primary Care Provider UnavailJessi Hogan DNP Unavailable [phone] Encounter Details Date Type Department Care Team Description 10/10/2022 SCAN Medical Records [address] [place] [address] Coy Salomon MD [address] [place] [phone] Social History Tobacco Use Types Packs/Day [...] suspected to have Coronavirus/COVID-19? No / Unsure 10/10/2022 3:39 PM EST documented as of this encounter Plan of Treatment Not on file documented as of this encounter Procedures Procedure Name Priority Date/Time Associated Diagnosis Comments OUTSIDE PLAIN FILM Routine 10/10/2022 documented in this encounter Results * OUTSIDE PLAIN FILM (10/10/2022) Provider Abstract RADIOLOGY documented in this encounter Visit Diagnoses Not on filedocumented in this encounter Care Teams Nursery School Teacher Relationship Specialty Start Date End Date Community, Pcp PCP - General Internal Medicine 09/08/22 11/08/22 Hawa Torres MD PCP - General Internal Medicine 11/09/22 Taya Gonzales MD Specialist Cardiology 11/01/20 Chandan Breen PA Specialist Cardiology 11/01/20 02/20/24 Jessi Erwin DNP Specialist Nurse Practitioner Family 02/21/24 documented as of this encounter
--- OUTSIDE RECORDS SUMMARY | 2024-12-05 16:51 | XMS_ITS | Encounter Summary ---
Author Organization [facility] Address [address] [place] [address] Care Team Providers Care Fire Captain Marine Name Role Phone Taya Gonzales MD Unavailable [phone] Chandan Breen Unavailable Hawa Torres MD Primary Care Provider Unavaila Hawa Maddox MD Primary Care Provider Unavaila ble [facility], Pcp Primary Care Provider UnavailHawa Barron MD Primary Care Provider Unavaila ble [facility], Pcp Primary Care Provider UnavailHawa Barron MD Primary Care Provider Unavaila ble Melonie Sorensen DO Primary Care Pro vider Unavailable [facility], Pcp Primary Care Provider Hawa Zavala MD Primary Care Provider Unavaila ble Jessi Erwin [facility] Unavailable [phone] Encounter Details Date Type Department Care Team Description 04/16/2021 Pt. Non Urgent Medical Question General Surgery - [address] [phone] Julio C Lawler MD [address] [place] [address] Social History Tobacco Use Types Packs/Day Years [...] encounter Miscellaneous Notes * Telephone Encounter - Julio C Lawler MD - 04/18/2021 5:12 PM EDT Please have the patient come in sooner to be evaluated. 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 This has developed quickly with no pain or discomfort. Please advise. documented in this encounter Plan of Treatment Not on file documented as of this encounter Visit Diagnoses Not on filedocumented in this encounter Care Teams Fire Captain Marine Relationship Specialty Start Date End Date Hawa [...] 02/20/24 Jessi Erwin DNP Specialist Nurse Practitioner [facility] 02/21/24 documented as of this encounter
--- OUTSIDE RECORDS SUMMARY | 2024-12-05 16:51 | XMS_ITS | Encounter Summary ---
Author Organization [facility] Address [address] [place] [address] Care Team Providers Care Manager Investment Name Role Phone Lul Lou MD Primary Care Provider Unavailab Salomón Cummings MD Primary Care Provider Unavail able Hawa Torres MD Primary Care Provider Unavaila Hawa Maddox MD Primary Care Provider Unavaila Taya Covington MD Unavailable [phone] Chandan Breen Unavailable Rancho Matthews MD Primary Care Provider [phone] [facility], Pcp Primary Care Provider UnavailRancho Brock MD Primary Care Provider [phone] Hawa Torres MD Primary Care Provider [...] Provider Unavaila ble Jessi Erwin DNP Unavailable [phone] Encounter Details Date Type Department Care Team Description 10/16/2012 Orders Only Medicine/Pediatrics - [address] [phone] Lul Lou MD Social History Tobacco Use [...] filedocumented in this encounter Care Teams Manager Investment Relationship Specialty Start Date End Date Lul Lou MD PCP - General Internal Medicine 05/16/12 06/06/14 Salomón Lou MD PCP - General Internal Medicine 09/01/14 09/08/15 Hawa Torres MD PCP - General Internal Medicine 09/09/15 12/19/20 Hawa Torres MD PCP - General 06/07/14 08/31/14 Rancho Matthews MD [address] [place] [address] PCP - General Internal Medicine 12/20/20 03/22/21 [facility], [address] [address] PCP - General Internal Medicine 03/23/21 04/11/21 Rancho Matthews MD [address] [place] [address] 10278 PCP - General Internal Medicine 04/12/21 04/12/21 Hawa Torres MD [address] [place] [address] 30753 PCP - General Internal Medicine 04/13/21 06/05/21 Hawa Torres MD [address] [place] [address] 84334 PCP - General Internal Medicine 06/06/21 08/07/21 [facility] Pcp [address] [place] [address] PCP - General Internal Medicine 08/08/21 10/27/21 Hawa Torres MD PCP - General Internal Medicine 10/28/21 04/11/22 [facility], Pcp [address] [place] [address] 32452 PCP - General Internal Medicine 04/12/22 05/01/22 Hawa Torres MD [address] [place] [address]776 PCP - General Internal Medicine 05/02/22 05/21/22 Melonie Sorensen, [address] [place] [address] 65482 PCP - General Internal Medicine 05/22/22 09/07/22 [facility], Pcp [address] [place] [address]103 PCP - General Internal Medicine 09/08/22 11/08/22 Hawa Torres MD [address] [place] [address] PCP - General Internal Medicine 11/09/22 Taya Gonzales MD Specialist Cardiology 11/01/20 Chandan Breen PA Specialist Cardiology 11/01/20 02/20/24 Jessi Erwin, KITTY [address] [place] [address] Specialist Nurse Practitioner [facility] 02/21/24 documented as of this encounter
--- OUTSIDE RECORDS SUMMARY | 2024-12-05 16:51 | XMS_ITS | Encounter Summary ---
Author Organization [facility] Address [address] [place] [address] Care Team Providers Care Industrial Cafeteria Manager Name Role Phone Taya Gonzales MD Unavailable [phone] Chandan Breen Unavailable Hawa Torres MD [...] Primary Care Provider Unavaila ble Jessi Erwin [facility] Unavailable [phone] Encounter Details Date Type Department Care Team Description 05/03/2021 Pt. Non Urgent Medic al Question Dermatology [address] [phone] Leda Lucas PA-C Social History [...] encounter Miscellaneous Notes * Telephone Encounter - Elin Cotto L.P.N. - 05/04/2021 8:47 AM EDTFrom: Dana Grant To: Aletha Lucas Sent: 05/03/2021 8:14 PM EDT Subject: Refill Mom is starting to have problems with her skin again and would like to start using TRIAMCINOLONE 0.1% CREAM with the Cerave. Thank you, Madelin documented in this encounter Plan of Treatment Not on file documented as of this encounter Visit Diagnoses Not on filedocumented in this encounter Care Teams Industrial Cafeteria Manager Relationship Specialty Start Date End Date Hawa Torres MD PCP - General Internal Medicine 04/13/21 06/05/21 Hawa Torres MD PCP - General Internal Medicine 06/06/21 08/07/21 [facility], Pcp PCP - General Internal Medicine 08/08/21 [...]
--- OUTSIDE RECORDS SUMMARY | 2024-12-05 16:51 | XMS_ITS | Encounter Summary ---
Author Organization [facility] Address [address] [place] [phone] Phone Care Team Providers Care Assistant Professor Of Spanish Name Role Phone Unavailable Primary Care Provider Unavailabl e Encounter Details Date Type Department Care Team (Late st Contact Info) Description 11/26/2024 Treatment [facility] [address] [phone] Aldo Rice MD [address] [phone] End stage renal disease; Dependence [...] care for end stage renal disease. Attending Nutrition Internship: ALDO RICE MD Dialysis Location: [facility] D[facility] Schedule: Shift: 1 HOME MEDICATIONS Current [facility] Outpatient Medications calcitriol (ROCALTROL) 0.25 MCG capsule [...]
--- OUTSIDE RECORDS SUMMARY | 2024-12-05 16:51 | XMS_ITS | Encounter Summary ---
Author Organization [facility] Address [address] [place] [address] Care Team Providers Care Service Line Layer Name Role Phone Lul Lou MD Primary Care Provider Unavailab Salomón Cummings MD Primary Care Provider Unavail able Hawa Torres MD Primary Care Provider Unavaila Hawa Maddox MD Primary Care Provider Unavaila Taya Covington MD Unavailable [phone] Chandan Breen Unavailable Rancho Matthews MD Primary Care Provider [phone] [facility], Pcp Primary Care Provider UnavailRancho Brock MD Primary Care Provider [phone] Hawa Torres MD Primary Care Provider Unavaila Hawa Maddox MD Primary Care Provider Unavaila ble [facility], Pcp Primary Care Provider UnavailHawa Barron MD Primary Care Provider Unavaila ble [facility], Pcp Primary Care Provider UnavailHawa Barron MD Primary Care Provider Unavaila ble Melonie Sorensen DO Primary Care Pro vider Unavailable Community, Pcp Primary Care Provider UnavailHawa Barron MD Primary Care Provider Unavaila ble Jessi Erwin DNP Unavailable [phone] Encounter Details Date Type Department Care Team Description 10/10/2012 Transfer Records Medical Records [address] [place] [id number] Abstract, Provider Social History Tobacco Use Types [...] on filedocumented in this encounter Care Teams Service Line Layer Relationship Specialty Start Date End Date Lul Lou MD PCP - General Internal Medicine 05/16/12 06/06/14 Salomón Lou MD PCP - General Internal Medicine 09/01/14 09/08/15 Hawa Torres MD PCP - General Internal Medicine 09/09/15 12/19/20 Hawa Torres MD PCP - General 06/07/14 08/31/14 Rancho Matthews MD [address] [place], [place] [phone] PCP - General Internal Medicine 12/20/20 03/22/21 [facility], [address] [address] PCP - General Internal Medicine 03/23/21 04/11/21 Rancho Matthews MD [address] [place] [address] PCP - General Internal Medicine 04/12/21 04/12/21 Hawa Torres MD [address] [place] [address] 56554 PCP - General Internal Medicine 04/13/21 06/05/21 Hawa Torres MD [address] [place] [address] 91952 PCP - General Internal Medicine 06/06/21 08/07/21 [facility], [address] [address] PCP - General Internal Medicine 08/08/21 10/27/21 Hawa Torres MD PCP - General Internal Medicine 10/28/21 04/11/22 [facility], Pcp [address] [place] [address] 47072 PCP - General Internal Medicine 04/12/22 05/01/22 Hawa Torres MD [address] [place] [address] 17207 PCP - General Internal Medicine 05/02/22 05/21/22 Melonie Sorensen DO [address] [place] [address] 36359 PCP - General Internal Medicine 05/22/22 09/07/22 [facility], Pcp [address] [place] [address] PCP - General Internal Medicine 09/08/22 11/08/22 Hawa Torres MD [address] [place] [address] 40042 PCP - General Internal Medicine 11/09/22 Taya Gonzales MD Specialist Cardiology 11/01/20 Chandan Breen PA Specialist Cardiology 11/01/20 02/20/24 Jessi Erwin, KITTY [address] [place] [address] Specialist Nurse Practitioner [facility] 02/21/24 documented as of this encounter
--- OUTSIDE RECORDS SUMMARY | 2024-12-05 16:51 | XMS_ITS | Encounter Summary ---
Author Organization [facility] Address [address] [place] [address] Care Team Providers Care Hospital Unit Clerk Name Role Phone Taya Gonzales MD Unavailable [phone] Chandan Breen Unavailable Rancho Matthews MD Primary Care Provider [phone] [facility], [facility], Pcp Primary Care Provider UnavailRancho Brock MD Primary Care Provider [phone] Hawa Torres MD Primary Care Provider Unavaila Hawa Maddox MD Primary Care Provider Unavaila ble [facility], [facility], Pcp Primary Care Provider UnavailHawa Barron MD Primary Care Provider Unavaila ble [facility], [facility], Pcp Primary Care Provider UnavailHawa Barron MD Primary Care Provider Unavaila ble Melonie Sorensen DO Primary Care Pro vider Unavailable [facility], [facility], Pcp Primary Care Provider UnavailHawa Barron MD Primary Care Provider Unavaila ble Jessi Erwin [facility] Unavailable [phone] Encounter Details Date Type Department Care Team Description 03/11/2021 Telephone Pulmonology - [place] [address] [facility] [address] [place] [address] Rancho Matthews MD [address] [place] [address] [id number] Social History Tobacco Use Types Packs/Day Years [...] on filedocumented in this encounter Care Teams Hospital Unit Clerk Relationship Specialty Start Date End Date Rancho Matthews MD [address] [place] [address] 75083 PCP - General Internal Medicine 12/20/20 03/22/21 [facility] Pcp [address] [place] [address] 07166 PCP - General Internal Medicine 03/23/21 04/11/21 Rancho Matthews MD [address] [place] [address] 43594 PCP - General Internal Medicine 04/12/21 04/12/21 Hawa Torres MD [address] [place] [address] 22117 PCP - General Internal Medicine 04/13/21 06/05/21 Hawa Torres MD [address] [place] [address] 08425 PCP - General Internal Medicine 06/06/21 08/07/21 [facility], [facility], Pcp [address] [place] [address] 24076 PCP - General Internal Medicine 08/08/21 10/27/21 Hawa Torres MD [address] [place] [address] 09433 PCP - General Internal Medicine 10/28/21 04/11/22 [facility], [facility], Pcp [address] [place] [address] 66517 PCP - General Internal Medicine 04/12/22 05/01/22 Hawa Torres MD [address] [place] [address] 53487 PCP - General Internal Medicine 05/02/22 05/21/22 Melonie Sorensen, [address] [place] [address] 35936 PCP - General Internal Medicine 05/22/22 09/07/22 [facility], [facility], Pcp [address] [place] [address] 94467 PCP - General Internal Medicine 09/08/22 11/08/22 Hawa Torres MD [address] [place] [address] 73782 PCP - General Internal Medicine 11/09/22 Taya Gonzales MD Specialist Cardiology 11/01/20 Chandan Breen PA Specialist Cardiology 11/01/20 02/20/24 Jessi Erwin DNP [address] [place] [address] 86102 Specialist Nurse Practitioner Family 02/21/24 documented as of this encounter
--- OUTSIDE RECORDS SUMMARY | 2024-12-05 16:51 | XMS_ITS | Encounter Summary ---
Author Organization [facility] Address [address] [place] [address] Care Team Providers Care Incident Engineer Name Role Phone Taya Gonzales MD Unavailable [phone] Chandan Breen Unavailable Hwaa Torres MD Primary Care Provider Unavaila ble [facility], Pcp Primary Care Provider UnavailHawa Barron MD Primary Care Provider Unavaila ble Melonie Sorensen DO Primary Care Pro vider Unavailable [facility], Pcp Primary Care Provider UnavailHawa Barron MD Primary Care Provider Unavaila ble Jessi Erwin DNP Unavailable [phone] Reason for Visit * Reason Onset Date Comments Faxed Refill 04/06/2022 Encounter Details Date Type Department Care Team Description 04/06/2022 [place] [address] Lucille Clarke PA-C [address] [place] [address] Faxed Refill Social History Tobacco Use Types [...] N/A Patients current insurance carrier is: Payor: [facility] FFS / Plan: [facility] MEDICARE PREMIUM $10 NAGA / Product Type: MEDICARE [id number] documented in this encounter Plan of Treatment Not on file documented as of this encounter Visit Diagnoses Diagnosis Uncontrolled type 2 diabetes mellitus with hyperglycemia (HCC) documented in this encounter Care Teams Incident Engineer Relationship Specialty Start Date End Date Hawa Torres MD PCP - General Internal Medicine 10/28/21 04/11/22 [facility], Pcp PCP - General Internal Medicine 04/12/22 05/01/22 Hawa Torres MD PCP - General Internal Medicine 05/02/22 05/21/22 Melonie Sorensen DO PCP - General Internal Medicine 05/22/22 09/07/22 [facility], Pcp PCP - General Internal Medicine 09/08/22 11/08/22 Hawa Torres MD PCP - General Internal Medicine 11/09/22 Taya Gonzales MD Specialist Cardiology 11/01/20 Chandan Breen PA Specialist Cardiology 11/01/20 02/20/24 Jessi Erwin DNP Specialist Nurse Practitioner Family 02/21/24 documented as of this encounter
--- OUTSIDE RECORDS SUMMARY | 2024-12-05 16:51 | XMS_ITS | Encounter Summary ---
Author Organization [facility] Address [address] [place] [address] Care Team Providers Care Masonry Installer Name Role Phone Lul Lou MD Primary Care Provider Unavailab Salomón Cummings MD Primary Care Provider Unavail able Hawa Torres MD Primary Care Provider Unavaila Hawa Maddox MD Primary Care Provider Unavaila Tyaa Covington MD Unavailable [phone] Chandan Breen Unavailable Rancho Matthews MD Primary Care Provider [phone] [facility], Pcp Primary Care Provider UnavailRancho Brock MD Primary Care Provider [phone] Hawa Torres MD Primary Care Provider [...] Provider Unavaila ble Jessi Erwin DNP Unavailable [phone] Encounter Details Date Type Department Care Team Description 05/17/2012 Release of Information Medical Records [address] [place] [id number] Abstract, Provider Social History Tobacco Use Types [...] on filedocumented in this encounter Care Teams Masonry Installer Relationship Specialty Start Date End Date Lul Lou MD PCP - General Internal Medicine 05/16/12 06/06/14 Salomón Lou MD PCP - General Internal Medicine 09/01/14 09/08/15 Hawa Torres MD PCP - General Internal Medicine 09/09/15 12/19/20 Hawa Torres MD PCP - General 06/07/14 08/31/14 Rancho Matthews MD [address] [place], [place] [phone] PCP - General Internal Medicine 12/20/20 03/22/21 [facility], [address] [address] PCP - General Internal Medicine 03/23/21 04/11/21 Rancho Matthews MD [address] [place] [address]92 PCP - General Internal Medicine 04/12/21 04/12/21 Hawa Torres MD [address] [place] [address] 86137 PCP - General Internal Medicine 04/13/21 06/05/21 Hawa Torres MD [address] [place] [address] 90089 PCP - General Internal Medicine 06/06/21 08/07/21 [facility], [address] [address] PCP - General Internal Medicine 08/08/21 10/27/21 Hawa Torres MD PCP - General Internal Medicine 10/28/21 04/11/22 [facility], Pcp [address] [place] [address]118 PCP - General Internal Medicine 04/12/22 05/01/22 Hawa Torres MD [address] [place] [address] 31724 PCP - General Internal Medicine 05/02/22 05/21/22 Melonie Sorensen, [address] [place] [address] 41867 PCP - General Internal Medicine 05/22/22 09/07/22 [facility], Pcp [address] [place] [address] PCP - General Internal Medicine 09/08/22 11/08/22 Hawa Torres MD [address] [place] [address] 36333 PCP - General Internal Medicine 11/09/22 Taya Gonzales MD Specialist Cardiology 11/01/20 Chandan Breen PA Specialist Cardiology 11/01/20 02/20/24 Jessi Erwin DNP [address] [place] [address]17 Specialist Nurse Practitioner [facility] 02/21/24 documented as of this encounter
--- OUTSIDE RECORDS SUMMARY | 2024-12-05 16:51 | XMS_ITS | Encounter Summary ---
Author Organization [facility] Address [address] [facility] [address] [place] [address] Care Team Providers Care Moisture Machine Tender Name Role Phone Unavailable Primary Care Provider Unavailabl e Encounter Details Date Type Department Care Team (Latest Contact Info) Description 05/28/2024 Treatment Aldo Rice MD [address] [facility] [address] [place] [address] Social History Tobacco Use Types [...] care for end stage renal disease. Attending Hospitality Recruiter: ALDO RICE MD Dialysis Location: [facility] Schedule: Shift: 1 OVERVIEW [...]
--- OUTSIDE RECORDS SUMMARY | 2024-12-05 16:51 | XMS_ITS | Encounter Summary ---
Author Organization [facility] Address [address] [place] [address] Care Team Providers Care Blocker And Polisher Name Role Phone Hawa Torres MD Primary Care Provider UnavailTaya Lira MD Unavailable [phone] Chandan Breen Unavailable Rancho Matthews MD Primary Care Provider [phone] [facility], Pcp Primary Care Provider UnavailRancho Brock MD Primary Care Provider [phone] Hawa Torres MD Primary Care Provider Unavaila Hawa Maddox MD Primary Care Provider Unavaila elpidio [facility], Pcp Primary Care Provider UnavailHawa Barron MD Primary Care Provider Unavaila ble [facility], Pcp Primary Care Provider Hawa Zavala MD Primary Care Provider Unavaila ble Melonie Sorensen DO Primary Care Pro vider Unavailable Community, Pcp Primary Care Provider Hawa Zavala MD Primary Care Provider Unavaila Jessi Cagle [facility] Unavailable + [phone] Reason for Visit * Reason Onset Date Comments Remote Device Check 09/22/2020 Encounter Details Date Type Department Care Team Description 09/22/2020 Telephone Cardio PVC POC [address] [place] [address] Taya Gonzales MD [address] [place] [address] [id number] Remote Device Check Social History Tobacco Use [...] on filedocumented in this encounter Care Teams Blocker And Polisher Relationship Specialty Start Date End Date Hawa Torres MD PCP - General Internal Medicine 09/09/15 12/19/20 Rancho Matthews MD [address] [place], [place] [phone] PCP - General Internal Medicine 12/20/20 03/22/21 [facility], Pcp [address] [place] [address]013 PCP - General Internal Medicine 03/23/21 04/11/21 Rancho Matthews MD [address] [place] [address] 81185 PCP - General Internal Medicine 04/12/21 04/12/21 Hawa Torres MD [address] [place] [address] PCP - General Internal Medicine 04/13/21 06/05/21 Hawa Torres MD [address] [place] [address] PCP - General Internal Medicine 06/06/21 08/07/21 [facility], Pcp [address] [place] [address] 82728 PCP - General Internal Medicine 08/08/21 10/27/21 Hawa Torres MD PCP - General Internal Medicine 10/28/21 04/11/22 [facility], Pcp [address] [place] [address] 53365 PCP - General Internal Medicine 04/12/22 05/01/22 Hawa Torres MD [address] [place] [address] PCP - General Internal Medicine 05/02/22 05/21/22 Melonie Sorensen, DO [address] [place] [address] 68604 PCP - General Internal Medicine 05/22/22 09/07/22 [facility], Pcp [address] [place] [address] 72273 PCP - General Internal Medicine 09/08/22 11/08/22 Hawa Torres MD [address] [place] [address] PCP - General Internal Medicine 11/09/22 Taya Gonzales MD Specialist Cardiology 11/01/20 Chandan Breen PA Specialist Cardiology 11/01/20 02/20/24 Jessi Erwin DNP [address] [place] [address] 16464 Specialist Nurse Practitioner Family 02/21/24 documented as of this encounter
--- OUTSIDE RECORDS SUMMARY | 2024-12-05 16:51 | XMS_ITS | Encounter Summary ---
Author Organization [facility] Address [address] [place] [address] Care Team Providers Care Cash Application Clerk Name Role Phone Hawa Torres MD Primary Care Provider Unavaila Taya Covington MD Unavailable [phone] Chandan Breen Unavailable Rancho Matthews MD Primary Care Provider [phone] [facility], Pcp Primary Care Provider UnavailRancho Brock MD Primary Care Provider [phone] Hawa Torres MD Primary Care Provider Unavaila Hawa Maddox MD Primary Care Provider Unavaila elpidio [facility], Pcp Primary Care Provider Hawa Zavala MD Primary Care Provider Unavaila ble [facility], Pcp Primary Care Provider Hawa Zavala MD Primary Care Provider Unavaila Melonie Rojas DO Primary Care Pro vider Unavailable Community, Pcp Primary Care Provider Hawa Zavala MD Primary Care Provider Unavaila Jessi Cagle [facility] Unavailable [phone] Encounter Details Date Type Department Care Team Description 05/14/2020 Pt. Non Urgent Medical Question Nephrology - [place] [address] [place] [address] Mc Barragan MD [address] [place] [address] Social History Tobacco Use Types Packs/Day Years [...] encounter Miscellaneous Notes * Telephone Encounter - Brandie Belle M.A. - 05/18/2020 2:17 PM EDT Please review and advise. documented in this encounter Plan of Treatment Not on file documented as of this encounter Visit Diagnoses Not on filedocumented in this encounter Care Teams Cash Application Clerk Relationship Specialty Start Date End Date Hawa Torres MD PCP - General Internal Medicine 09/09/15 12/19/20 Rancho Matthews MD [address] [place] [address] PCP - General Internal Medicine 12/20/20 03/22/[address] [address] PCP - General Internal Medicine 03/23/21 04/11/21 Rancho Matthews MD [address] [place], [place] [phone] PCP - General Internal Medicine 04/12/21 04/12/21 Hawa Torres MD [address] [place] [address] PCP - General Internal Medicine 04/13/21 06/05/21 Hawa Torres MD [address] [place] [address] 33780 PCP - General Internal Medicine 06/06/21 08/07/21 [facility], Pcp [address] [place] [address]60 PCP - General Internal Medicine 08/08/21 10/27/21 Hawa Torres MD PCP - General Internal Medicine 10/28/21 04/11/22 [facility], Pcp [address] [place] [address] 12951 PCP - General Internal Medicine 04/12/22 05/01/22 Hawa oTrres MD [address] [place] [address] 71271 PCP - General Internal Medicine 05/02/22 05/21/22 Melonie Sorensen, [address] [place] [address]60 PCP - General Internal Medicine 05/22/22 09/07/22 [facility], Pcp [address] [place] [address] 86198 PCP - General Internal Medicine 09/08/22 11/08/22 Hawa Torres MD [address] [place] [address] 86766 PCP - General Internal Medicine 11/09/22 Taya Gonzales MD Specialist Cardiology 11/01/20 Chandan Breen PA Specialist Cardiology 11/01/20 02/20/24 Jessi Erwin DNP [address] [place] [address]21 Specialist Nurse Practitioner [facility] 02/21/24 documented as of this encounter
--- OUTSIDE RECORDS SUMMARY | 2024-12-05 16:51 | XMS_ITS | Encounter Summary ---
Author Organization [facility] Address [address] [place] [address] Care Team Providers Care Candle Cutter Name Role Phone Hawa Torres MD Primary Care Provider Unavaila Taya Covington MD Unavailable [phone] Chandan Breen Unavailable Rancho Matthews MD Primary Care Provider [phone] [facility], Pcp Primary Care Provider UnavailRancho Brock MD Primary Care Provider [phone] Hawa Torres MD Primary Care Provider Unavaila Hawa Maddox MD Primary Care Provider Unavaila elpidio [facility], Pcp Primary Care Provider UnavailHawa Barron MD Primary Care Provider Unavaila ble [facility], Pcp Primary Care Provider Hawa Zavala MD Primary Care Provider Unavaila ble Melonie Sorensen DO Primary Care Pro vider Unavailable Community, Pcp Primary Care Provider UnavailHawa Barron MD Primary Care Provider Unavaila Jessi Cagle [facility] Unavailable [phone] Encounter Details Date Type Department Care Team Description 04/29/2020 Telephone Dermatology - [address] [phone] Leda Lucas PA-C Social History [...] on filedocumented in this encounter Care Teams Candle Cutter Relationship Specialty Start Date End Date Hawa Torres MD PCP - General Internal Medicine 09/09/15 12/19/20 Rancho Matthews MD [address] [place] [address] PCP - General Internal Medicine 12/20/20 03/22/21 [facility], Pcp [address] [place] [address] PCP - General Internal Medicine 03/23/21 04/11/21 Rancho Matthews MD [address] [place] [address] 99596 PCP - General Internal Medicine 04/12/21 04/12/21 Hawa Torres MD [address] [place] [address] 79142 PCP - General Internal Medicine 04/13/21 06/05/21 Hawa Torres MD [address] [place] [address] 71326 PCP - General Internal Medicine 06/06/21 08/07/21 [facility], Pcp [address] [place] [address] 49660 PCP - General Internal Medicine 08/08/21 10/27/21 Hawa Torres MD PCP - General Internal Medicine 10/28/21 04/11/22 [facility], Pcp [address] [place] [address] 53171 PCP - General Internal Medicine 04/12/22 05/01/22 Hawa Torres MD [address] [place] [address] 11125 PCP - General Internal Medicine 05/02/22 05/21/22 Melonie Sorensen, DO [address] [place] [address] 26094 PCP - General Internal Medicine 05/22/22 09/07/22 [facility], Pcp [address] [place] [address]45 PCP - General Internal Medicine 09/08/22 11/08/22 Hawa Torres MD [address] [place] [address] 91313 PCP - General Internal Medicine 11/09/22 Taya Gonzales MD Specialist Cardiology 11/01/20 Chandan Breen PA Specialist Cardiology 11/01/20 02/20/24 Jessi Erwin DNP [address] [place] [address] 47344 Specialist Nurse Practitioner Family 02/21/24 documented as of this encounter
--- OUTSIDE RECORDS SUMMARY | 2024-12-05 16:51 | XMS_ITS | Encounter Summary ---
Author Organization [facility] Address [address] [place] [address] Care Team Providers Care Elementary Supervisor Name Role Phone Hawa Torres MD [...] Unavaila Jessi Cagle [facility] Unavailable + [phone] Encounter Details Date Type Department Care Team Description 04/27/2020 Hospital Medical Records [address] [place] [address] Cam Cano NP Social History Tobacco Use [...] on filedocumented in this encounter Care Teams Elementary Supervisor Relationship Specialty Start Date End Date Hawa Torres MD PCP - General Internal Medicine 09/09/15 12/19/20 Rancho Matthews MD [address] [place] [address] PCP - General Internal Medicine 12/20/20 03/22/21 [facility] Pcp [address] [place] [address] PCP - General Internal Medicine 03/23/21 04/11/21 Rancho Matthews MD [address] [place] [address] PCP - General Internal Medicine 04/12/21 04/12/21 Hwaa Torres MD [address] [place] [address] 75268 PCP - General Internal Medicine 04/13/21 06/05/21 Hawa Torres MD [address] [place] [address]8832 PCP - General Internal Medicine 06/06/21 08/07/21 [facility], Pcp [address] [place] [address] 9[address]64 PCP - General Internal Medicine 08/08/21 10/27/21 Hawa Torres MD PCP - General Internal Medicine 10/28/21 04/11/22 [facility], Pcp [address] [place] [address] 48576 PCP - General Internal Medicine 04/12/22 05/01/22 Hawa Torres MD [address] [place] [address] 18970 PCP - General Internal Medicine 05/02/22 05/21/22 Melonie Sorensen DO [address] [place] [address] 46618 PCP - General Internal Medicine 05/22/22 09/07/22 [facility], Pcp [address] [place] [address] 41034 PCP - General Internal Medicine 09/08/22 11/08/22 Hawa Torres MD [address] [place], [place] [phone] PCP - General Internal Medicine 11/09/22 Taya Gonzales MD Specialist Cardiology 11/01/20 Chandan Breen PA Specialist Cardiology 11/01/20 02/20/24 Jessi Erwin, KITTY [address] [place] [address] Specialist Nurse Practitioner Family 02/21/24 documented as of this encounter
--- OUTSIDE RECORDS SUMMARY | 2024-12-05 16:51 | XMS_ITS | Encounter Summary ---
Author Organization [facility] Address [address] [place] [address] Care Team Providers Care Sewer Pipe Sorter Name Role Phone Hawa Torres MD Primary Care Provider UnavailTaya Lira MD Unavailable + Chandan Breen Unavailable + Rancho Matthews MD Primary Care Provider + [facility], Pcp Primary Care Provider UnavailRancho Brock MD [...] Cagle [facility] Unavailable + Encounter Details Date Type Department Care Team Description 05/06/2020 Sr. Manager Corporate Communications Report Medical Records [address] [place] [phone] Taya Gonzales MD [address] [place] [address] [id number] Social History Tobacco Use Types Packs/Day Years [...] on filedocumented in this encounter Care Teams Sewer Pipe Sorter Relationship Specialty Start Date End Date Hawa Torres MD PCP - General Internal Medicine 09/09/15 12/19/20 Rancho Matthews MD [address] [place] [address] PCP - General Internal Medicine 12/20/20 03/22/21 [facility], Pcp [address] [place] [address] PCP - General Internal Medicine 03/23/21 04/11/21 Rancho Matthews MD [address] [place] [address] 11344 PCP - General Internal Medicine 04/12/21 04/12/21 Hawa Torres MD [address] [place] [address] 54862 PCP - General Internal Medicine 04/13/21 06/05/21 Hawa Torres MD [address] [place] [address]14 PCP - General Internal Medicine 06/06/21 08/07/21 [facility], Pcp [address] [place], [place] [address] [address] PCP - General Internal Medicine 08/08/21 10/27/21 Hawa Torres MD PCP - General Internal Medicine 10/28/21 04/11/22 [facility], Pcp [address] [place] [address] 58342 PCP - General Internal Medicine 04/12/22 05/01/22 Hawa Torres MD [address] [place] [address] 62117 PCP - General Internal Medicine 05/02/22 05/21/22 Melonie Sorensen DO [address] [place] [address] 54450 PCP - General Internal Medicine 05/22/22 09/07/22 [facility], [address] [address] PCP - General Internal Medicine 09/08/22 11/08/22 Hawa Torres MD [address] [place] [address] 05207 PCP - General Internal Medicine 11/09/22 Taya Gonzales MD Specialist Cardiology 11/01/20 Chandan Breen PA Specialist Cardiology 11/01/20 02/20/24 Jessi Erwin DNP [address] [place] [address]802 Specialist Nurse Practitioner [facility] 02/21/24 documented as of this encounter
--- OUTSIDE RECORDS SUMMARY | 2024-12-05 16:51 | XMS_ITS | Encounter Summary ---
Author Organization [facility] Address [address] [place] [address] Care Team Providers Care Grocery Store Manager Name Role Phone Taya Gonzales MD Unavailable [phone] Chandan Breen Unavailable Hawa Torres MD Primary Care Provider Unavailamaya magallanes [facility], Pcp Primary Care Provider Hawa Zavala MD Primary Care Provider Unavaila Melonie Rojas DO Primary Care Pro vider Unavailable [facility]cp Primary Care Provider Hawa Zavala MD Primary Care Provider Unavaila Jessi Cagle DNP Unavailable [phone] Encounter Details Date Type Department Care Team Description 03/09/2022 Mobile Application Developer Report Medical Records [address] [place] [id number] Hawa Torres MD Social History Tobacco Use [...] on filedocumented in this encounter Care Teams Grocery Store Manager Relationship Specialty Start Date End Date [...]
--- OUTSIDE RECORDS SUMMARY | 2024-12-05 16:51 | XMS_ITS | Encounter Summary ---
Author Organization [facility] Address [address] [place] [address] Care Team Providers Care Review Coordinator Name Role Phone Hawa Torres MD Primary Care Provider Unavaila Taya Covington MD Unavailable [phone] Chandan Breen Unavailable + Rancho Matthews MD Primary Care Provider + [facility], Pcp Primary Care Provider UnavailRancho Brock MD Primary Care Provider [phone] Hawa Torres MD Primary Care Provider Unavaila Hawa Maddox MD Primary Care Provider Unavaila elpidio [facility], Pcp Primary Care Provider Hawa Zavala MD Primary Care Provider Unavaila ble [facility], Pcp Primary Care Provider Hawa Zavala MD Primary Care Provider Unavaila Melonie Rojas DO Primary Care Pro vider Unavailable [facility], Pcp Primary Care Provider Hawa Zavala MD Primary Care Provider Unavaila Jessi Cagle [facility] Unavailable + [phone] Encounter Details Date Type Department Care Team Description 05/23/2017 Pt. Non Urgent Medical Question Medicine/Pediatrics - [address] [phone] Hawa Torres MD Social History Tobacco Use [...] filedocumented in this encounter Care Teams Review Coordinator Relationship Specialty Start Date End Date Hawa Torres MD PCP - General Internal Medicine 09/09/15 12/19/20 Rancho Matthews MD [address] [place] [address] PCP - General Internal Medicine 12/20/20 03/22/[address] [address] PCP - General Internal Medicine 03/23/21 04/11/21 Rancho Matthews MD [address] [place] [address] PCP - General Internal Medicine 04/12/21 04/12/21 Hawa Torres MD [address] [place] [address] 20271 PCP - General Internal Medicine 04/13/21 06/05/21 Haaw Torres MD [address] [place] [address] PCP - General Internal Medicine 06/06/21 08/07/21 [facility], Pcp [address] [place] [address] PCP - General Internal Medicine 08/08/21 10/27/21 Hawa Torres MD PCP - General Internal Medicine 10/28/21 04/11/22 [facility], Pcp [address] [place] [address] 43933 PCP - General Internal Medicine 04/12/22 05/01/22 Hawa Torres MD [address] [place] [address] 61359 PCP - General Internal Medicine 05/02/22 05/21/22 Melonie Sorensen, [address] [place] [address] PCP - General Internal Medicine 05/22/22 09/07/22 [facility], Pcp [address] [place] [address] PCP - General Internal Medicine 09/08/22 11/08/22 Hawa Torres MD [address] [place] [address] PCP - General Internal Medicine 11/09/22 Taya Gonzales MD Specialist Cardiology 11/01/20 Chandan Breen PA Specialist Cardiology 11/01/20 02/20/24 Jessi Erwin, KITTY [address] [place] [address] Specialist Nurse Practitioner [facility] 02/21/24 documented as of this encounter
--- OUTSIDE RECORDS SUMMARY | 2024-12-05 16:51 | XMS_ITS | Encounter Summary ---
Author Organization [facility] Address [address] [place] [address] Care Team Providers Care Paper Inserter Name Role Phone Taya Gonzales MD Unavailable [phone] Chandan Breen Unavailable Hawa Torres MD Primary Care Provider Unavaila Hawa Maddox MD Primary Care Provider Unavaila ble [facility], Pcp Primary Care Provider UnavailHawa Barron MD Primary Care Provider Unavaila ble [facility], Pcp Primary Care Provider UnavailHawa Barron MD Primary Care Provider Unavaila ble Melonie Sorensen DO Primary Care Pro vider Unavailable [facility], Pcp Primary Care Provider Hawa Zavala MD Primary Care Provider Unavaila ble Jessi Erwin [facility] Unavailable [phone] Encounter Details Date Type Department Care Team Description 05/12/2021 Orders Only Pulmonology - [place] [address] [facility] [address] [place] [address] Coy Salomon MD [address] [place] [address] Obstructive sleep apnea Social History [...] (pediatric) documented in this encounter Care Teams Paper Inserter Relationship Specialty Start Date End Date Hawa Torres MD PCP - General Internal Medicine 04/13/21 06/05/21 Hawa Torres MD PCP - General Internal Medicine 06/06/21 08/07/21 [facility], Pcp PCP - General Internal Medicine 08/08/21 10/27/21 Hawa Torres MD PCP - General Internal Medicine 10/28/21 04/11/22 [facility], Pcp PCP - General Internal Medicine 04/12/22 05/01/22 Hawa Torres MD PCP - General Internal Medicine 05/02/22 05/21/22 Melonie Sorensen DO PCP - General Internal Medicine 05/22/22 09/07/22 [facility], Pcp PCP - General Internal Medicine 09/08/22 11/08/22 Hawa Torres MD PCP - General Internal Medicine 11/09/22 Taya Gonzales MD Specialist Cardiology 11/01/20 Chandan Breen PA Specialist Cardiology 11/01/20 02/20/24 Jessi Erwin DNP Specialist Nurse Practitioner [facility] 02/21/24 documented as of this encounter
--- OUTSIDE RECORDS SUMMARY | 2024-12-05 16:51 | XMS_ITS | Encounter Summary ---
Author Organization [facility] Address [address] [place] [address] Care Team Providers Care Creche Attendant Name Role Phone Taya Gonzales MD Unavailable [phone] Chandan Breen Unavailable Hawa Torres MD Primary Care Provider Unavailamaya magallanes [facility], Pcp Primary Care Provider Hawa Zavala MD Primary Care Provider Unavaila Melonie Rojas DO Primary Care Pro vider [facility], Pcp Primary Care Provider Hawa Zavala MD Primary Care Provider Unavaila Jessi Cagle DNP Unavailable [phone] Encounter Details Date Type Department Care Team Description 03/25/2022 [facility] Report Medical Records [address] [place] [address] Abstract, Provider Social History Tobacco Use Types [...] on filedocumented in this encounter Care Teams Creche Attendant Relationship Specialty Start Date End Date Hawa Torres MD PCP - General Internal Medicine 10/28/21 04/11/22 [facility], Pcp PCP - General Internal Medicine 04/12/22 05/01/22 Hawa Torres MD PCP - General Internal Medicine 05/02/22 05/21/22 Melonie Sorensen DO PCP - General Internal Medicine 05/22/22 09/07/22 [facility], Pcp PCP - General Internal Medicine 09/08/22 11/08/22 Hawa Torres MD PCP - General Internal Medicine 11/09/22 Taya Gonzales MD Specialist Cardiology 11/01/20 Chandan Breen PA Specialist Cardiology 11/01/20 02/20/24 Jessi Erwin DNP Specialist Nurse Practitioner Family 02/21/24 documented as of this encounter
--- OUTSIDE RECORDS SUMMARY | 2024-12-05 16:51 | XMS_ITS | Encounter Summary ---
Author Organization [facility] Address [address] [place] [address] Care Team Providers Care Network Operations Analyst Name Role Phone Taya Gonzales MD Unavailable [phone] Chandan Breen Unavailable Hawa Torres MD [...] Jessi Erwin [facility] Unavailable [phone] Reason for Visit * Reason Onset Date Comments APPOINTMENT 06/01/2021 Encounter Details Date Type Department Care Team Description 06/01/2021 Telephone Cardio PVC POC [address] [facility] [address] [place] [address] Nikhil Sorenson MD [address] [place] [address] [phone] APPOINTMENT Social History Tobacco Use Types Packs/Day [...] please schedule patient for a device check. (Mongolian speaking) documented in this encounter Plan of Treatment Not on file documented as of this encounter Visit Diagnoses Not on filedocumented in this encounter Care Teams Network Operations Analyst Relationship Specialty Start Date End Date Hawa Torres MD PCP - General Internal Medicine 04/13/21 06/05/21 Hawa Torres MD PCP - General Internal Medicine 06/06/21 08/07/21 [facility], Pcp PCP - General Internal [...]
--- OUTSIDE RECORDS SUMMARY | 2024-12-05 16:51 | XMS_ITS | Encounter Summary ---
Author Organization [facility] Address [address] [place] [address] Care Team Providers Care Contract Accountant Name Role Phone Hawa Torres MD Primary Care Provider Unavaila Taya Covington MD Unavailable [phone] Chandan Breen Unavailable + Rancho Matthews MD Primary Care Provider + [facility], Pcp Primary Care Provider UnavailRancho Brock MD [...] MD Primary Care Provider Unavaila Jessi Cagle [facility] Unavailable + Encounter Details Date Type Department Care Team Description 04/27/2020 Pt. Non Urgent Medical Question Nephrology - [address] [phone] Mc Barragan MD [address] [place] [address] Social History Tobacco Use Types Packs/Day Years [...] Telephone Encounter - Brandie Belle M.A. - 05/03/2020 11:36 AM EDT Spoke to pt's daughter, All set! documented in this encounter Plan of Treatment Not on file documented as of this encounter Visit Diagnoses Not on filedocumented in this encounter Care Teams Contract Accountant Relationship Specialty Start Date End Date Hawa Torres MD PCP - General Internal Medicine 09/09/15 12/19/20 Rancho Matthews MD [address] [place] [address]384 PCP - General Internal Medicine 12/20/20 03/22/[address] [address] PCP - General Internal Medicine 03/23/21 04/11/21 Rancho Matthews MD [address] [place] [address] 87192 PCP - General Internal Medicine 04/12/21 04/12/21 Hawa Torres MD [address] [place] [address] 84982 PCP - General Internal Medicine 04/13/21 06/05/21 Hawa Torres MD [address] [place] [address] 36939 PCP - General Internal Medicine 06/06/21 08/07/21 [facility], Pcp [address] [place] [address] 15423 PCP - General Internal Medicine 08/08/21 10/27/21 Hawa Torres MD PCP - General Internal Medicine 10/28/21 04/11/22 [facility], Pcp [address] [place] [address] PCP - General Internal Medicine 04/12/22 05/01/22 Hawa Torres MD [address] [place] [address] PCP - General Internal Medicine 05/02/22 05/21/22 Melonie Sorensen, [address] [place] [address] PCP - General Internal Medicine 05/22/22 09/07/22 [facility], Pcp [address] [place] [address] 23174 PCP - General Internal Medicine 09/08/22 11/08/22 Hawa Torres MD [address] [place] [address] 23353 PCP - General Internal Medicine 11/09/22 Taya Gonzales MD Specialist Cardiology 11/01/20 Chandan Breen PA Specialist Cardiology 11/01/20 02/20/24 Jessi Erwin DNP [address] [place] [address]131 Specialist Nurse Practitioner Family 02/21/24 documented as of this encounter
--- OUTSIDE RECORDS SUMMARY | 2024-12-05 16:51 | XMS_ITS | Encounter Summary ---
Author Organization [facility] Address [address] [place] [address] Care Team Providers Care Human Resources Office Assistant Name Role Phone Hawa Torres MD Primary Care Provider Unavaila Taya Covington MD Unavailable [phone] Chandan Breen Unavailable Rancho Matthews MD Primary Care Provider [phone] [facility], Pcp Primary Care Provider UnavailRancho Brock MD Primary Care Provider [phone] Hawa Torres MD Primary Care Provider Unavaila Hawa Maddox MD Primary Care Provider Unavaila elpidio [facility], Pcp Primary Care Provider Hawa Zavala MD Primary Care Provider Unavaila ble [facility], Pcp Primary Care Provider Hawa Zavala MD Primary Care Provider Unavaila Melonie Rojas DO Primary Care Pro vider Unavailable [facility], Pcp Primary Care Provider Hawa Zavala MD Primary Care Provider Unavaila Jessi Cagle [facility] Unavailable [phone] Encounter Details Date Type Department Care Team Description 05/14/2020 Pt. Non Urgent Medical Question Nephrology - [place] [address] [place] [address] Mc Barragan MD [address] [place] [address] Social History Tobacco Use Types Packs/Day Years [...] Encounter - Brandie Belle M.A. - 05/18/2020 2:16 PM EDT Please advise documented in this encounter Plan of Treatment Not on file documented as of this encounter Visit Diagnoses Not on filedocumented in this encounter Care Teams Human Resources Office Assistant Relationship Specialty Start Date End Date Hawa Torres MD PCP - General Internal Medicine 09/09/15 12/19/20 Rancho Matthews MD [address] [place] [address] PCP - General Internal Medicine 12/20/20 03/22/[address] [address] PCP - General Internal Medicine 03/23/21 04/11/21 Rancho Matthews MD [address] [place] [address] PCP - General Internal Medicine 04/12/21 04/12/21 Hawa Torres MD [address] [place] [address] 25400 PCP - General Internal Medicine 04/13/21 06/05/21 Hawa Torres MD [address] [place] [address] 87117 PCP - General Internal Medicine 06/06/21 08/07/21 [facility], Pcp [address] [place] [address] 28703 PCP - General Internal Medicine 08/08/21 10/27/21 Hawa Torres MD PCP - General Internal Medicine 10/28/21 04/11/22 [facility], Pcp [address] [place] [address] 76193 PCP - General Internal Medicine 04/12/22 05/01/22 Hawa Torres MD [address] [place] [address] 38487 PCP - General Internal Medicine 05/02/22 05/21/22 Melonie Sorensen, [address] [place] [address] 47779 PCP - General Internal Medicine 05/22/22 09/07/22 [facility], Pcp [address] [place] [address] 25225 PCP - General Internal Medicine 09/08/22 11/08/22 Hawa Torres MD [address] [place] [address] PCP - General Internal Medicine 11/09/22 Taya Gonzales MD Specialist Cardiology 11/01/20 Chandan Breen PA Specialist Cardiology 11/01/20 02/20/24 Jessi Erwin DNP [address] [place] [address] Specialist Nurse Practitioner [facility] 02/21/24 documented as of this encounter
--- OUTSIDE RECORDS SUMMARY | 2024-12-05 16:51 | XMS_ITS | Encounter Summary ---
Author Organization [facility] Address [address] [place] [address] Care Team Providers Care Auto Clocks Repairer Name Role Phone Hawa Torres MD Primary Care Provider UnavailTaya Lira MD Unavailable + Chandan Breen Unavailable + Rancho Matthews MD Primary Care Provider + [facility], [facility] Primary Care Provider UnavailRancho Brock MD Primary Care Provider + Hawa Torres MD Primary Care Provider Unavaila Hawa Maddox MD Primary Care Provider Unavaila elpidio [facility], Pcp Primary Care Provider UnavailHawa Barron MD Primary Care Provider Unavaila ble [facility], Pcp Primary Care Provider Hawa Zavala MD Primary Care Provider Unavaila Melonie Rojas DO Primary Care Pro vider Unavailable [facility], Pcp Primary Care Provider Hawa Zavala MD Primary Care Provider Unavaila Jessi Cagle [facility] Unavailable + Encounter Details Date Type Department Care Team Description 12/22/2016 Hospital Medical Records [address] [place] [address] Social History Tobacco Use Types Packs/Day Years [...] filedocumented in this encounter Care Teams Auto Clocks Repairer Relationship Specialty Start Date End Date Hawa Torres MD PCP - General Internal Medicine 09/09/15 12/19/20 Rancho Matthews MD [address] [place] [address] PCP - General Internal Medicine 12/20/20 03/22/21 [facility], Pcp [address] [place] [address] 35121 PCP - General Internal Medicine 03/23/21 04/11/21 Rancho Matthews MD [address] [place] [address] 38511 PCP - General Internal Medicine 04/12/21 04/12/21 Hawa Torres MD [address] [place] [address] 12259 PCP - General Internal Medicine 04/13/21 06/05/21 Hawa Torres MD [address] [place] [address] 10184 PCP - General Internal Medicine 06/06/21 08/07/21 [facility], Pcp [address] [place] [address] 15274 PCP - General Internal Medicine 08/08/21 10/27/21 Hawa Torres MD PCP - General Internal Medicine 10/28/21 04/11/22 [facility], Pcp [address] [place] [address] 65865 PCP - General Internal Medicine 04/12/22 05/01/22 Hawa Torres MD [address] [place] [address] 55746 PCP - General Internal Medicine 05/02/22 05/21/22 Melonie Sorensen DO [address] [place] [address] 38512 PCP - General Internal Medicine 05/22/22 09/07/22 [facility], Pcp [address] [place] [address] 19874 PCP - General Internal Medicine 09/08/22 11/08/22 Hawa Torres MD [address] [place] [address] 27742 PCP - General Internal Medicine 11/09/22 Taya Gonzales MD Specialist Cardiology 11/01/20 Chandan Breen PA Specialist Cardiology 11/01/20 02/20/24 Jessi Erwin, KITTY [address] [place] [address] Specialist Nurse Practitioner Family 02/21/24 documented as of this encounter
--- OUTSIDE RECORDS SUMMARY | 2024-12-05 16:51 | XMS_ITS | Encounter Summary ---
Author Organization [facility] Address [address] [place] [address] Care Team Providers Care Medical Payment Poster Name Role Phone Taya Gonzales MD Unavailable [phone] Chandan Breen Unavailable Hawa Torres MD Primary Care Provider Unavaila Hawa Maddox MD Primary Care Provider Unavaila ble [facility], Pcp Primary Care Provider UnavailHawa Barron MD Primary Care Provider Unavaila ble [facility], Pcp Primary Care Provider UnavailHawa Barron MD Primary Care Provider Unavaila ble Melonie Sorensen DO Primary Care Pro vider Unavailable [facility], Pcp Primary Care Provider Hawa Zavala MD Primary Care Provider Unavaila ble Jessi Erwin [facility] Unavailable [phone] Reason for Visit * Reason Onset Date Comments Provider Call Back 05/10/2021 Encounter Details Date Type Department Care Team Description 05/10/2021 Telephone Pulmonology - [place] [address] [facility] [address] [place] [address] Coy Salomon MD [address] [place] [address] Provider Call Back Social History [...] does not have theorder. Please fax to [phone]. Please call antoine Yusuf when done. Caller offered to speak with the nurse for assistance: YES Response: Patient offered to speak with nurse for assistance and patient agreed. Message forwarded to nurse. documented in this encounter Plan of Treatment Not on file documented as of this encounter Visit Diagnoses Not on filedocumented in this encounter Care Teams Medical Payment Poster Relationship Specialty Start Date End Date Hawa Torres MD PCP - General Internal Medicine 04/13/21 06/05/21 Hawa Torres MD PCP - General Internal Medicine 06/06/21 08/07/21 [facility], Pcp PCP - General Internal Medicine 08/08/21 10/27/21 Hawa Torres MD PCP - General Internal Medicine 10/28/21 04/11/22 [facility] Pcp PCP - General Internal Medicine 04/12/22 05/01/22 Hawa Torres MD PCP - General Internal Medicine 05/02/22 05/21/22 Melonie Sorensen DO PCP - General Internal Medicine 05/22/22 09/07/22 [facility], Pcp PCP - General Internal Medicine 09/08/22 11/08/22 Hawa Torres MD PCP - General Internal Medicine 11/09/22 Taya Gonzales MD Specialist Cardiology 11/01/20 Chandan Breen PA Specialist Cardiology 11/01/20 02/20/24 Jessi Erwin DNP Specialist Nurse Practitioner Family 02/21/24 documented as of this encounter
--- OUTSIDE RECORDS SUMMARY | 2024-12-05 16:51 | XMS_ITS | Encounter Summary ---
Author Organization [facility] Address [address] [place] [address] Care Team Providers Care Word Processing Operator Name Role Phone Hawa Torres MD Primary Care Provider Unavaila Taya Covington MD Unavailable +[phone] Chandan Breen Unavailable Rancho Matthews MD Primary Care Provider + [facility], [facility] Primary Care Provider UnavailRancho Brock MD Primary Care Provider +[phone] Hawa Torres MD Primary Care Provider Unavaila Hawa Maddox MD Primary Care Provider Unavaila elpidio [facility], Pcp Primary Care Provider Hawa Zavala MD Primary Care Provider Unavaila ble [facility], Pcp Primary Care Provider Hawa Zavala MD Primary Care Provider Unavaila Melonie Rojas DO Primary Care Pro vider Unavailable [facility], Pcp Primary Care Provider Hawa Zavala MD Primary Care Provider Unavaila Jessi Cagle [facility] Unavailable + [phone] Encounter Details Date Type Department Care Team Description 04/09/2020 Pt. Non Urgent Medical Question Medicine/Pediatrics - [address] [phone] Hawa Torres MD Social History Tobacco Use [...] on filedocumented in this encounter Care Teams Word Processing Operator Relationship Specialty Start Date End Date Hawa Torres MD PCP - General Internal Medicine 09/09/15 12/19/20 Rancho Matthews MD [address] [address] PCP - General Internal Medicine 12/20/20 03/22/21 [facility], [address] [address] PCP - General Internal Medicine 03/23/21 04/11/21 Rancho Matthews MD [address] [address] PCP - General Internal Medicine 04/12/21 04/12/21 Hawa Torres MD [address] [address]841 PCP - General Internal Medicine 04/13/21 06/05/21 Hawa Torres MD [address] [address] 61401 PCP - General Internal Medicine 06/06/21 08/07/21 [facility], Pcp [address] [address] 22936 PCP - General Internal Medicine 08/08/21 10/27/21 Hawa Torres MD PCP - General Internal Medicine 10/28/21 04/11/22 [facility], Pcp [address] [address] 30323 PCP - General Internal Medicine 04/12/22 05/01/22 Hawa Torres MD [address] [address] 83806 PCP - General Internal Medicine 05/02/22 05/21/22 Melonie Sorensen, DO [address] [address] 48072 PCP - General Internal Medicine 05/22/22 09/07/22 [facility], Pcp [address] [address]375 PCP - General Internal Medicine 09/08/22 11/08/22 Hawa Torres MD [address] [address] PCP - General Internal Medicine 11/09/22 Taya Gonzales MD Specialist Cardiology 11/01/20 Chandna Breen PA Specialist Cardiology 11/01/20 02/20/24 Jessi Erwin DNP [address] [place] [address] Specialist Nurse Practitioner [facility] 02/21/24 documented as of this encounter
--- OUTSIDE RECORDS SUMMARY | 2024-12-05 16:51 | XMS_ITS | Encounter Summary ---
Author Organization [facility] Address [address] [place] [address] Care Team Providers Care Biomedical Engineering Aide Name Role Phone Taya Gonzales MD Unavailable [phone] Chandan Breen Unavailable [facility], Pcp Primary Care Provider UnavailHawa Barron MD Primary Care Provider UnavailJessi Hogan DNP Unavailable [phone] Reason for Visit * Reason Onset Date Comments Shortness Of Breath 10/16/2022 sob Encounter Details Date Type Department Care Team Description 10/16/2022 Telephone Cardio PVC POC 154 [address] [facility] [address] [place] [address] Ramya Alicia, RAILROAD HAND [address] [facility] [address] [place] [id number] Shortness Of Breath (sob) Social History Tobacco [...] Is aware of recommendation to f/u with venetian blind maker. States will contact them and let them know what is going on. * Telephone Encounter - Debbie Angel PA-C - 10/16/2022 11:16 AM EST I suspect it may be most appropriate for her to discuss with her venetian blind maker as if she is having heart failure, [...] reviewed with dtr and updated. She stated [facility] stopped all pt cardiac meds (see dc encounter 08/29/22)and PCP restarted Carvedilol at a low dose until pt sees cardiology. NEXT OV ENP 11/09/22 * Telephone Encounter - Janae Tevin - 10/16/2022 8:55 AM EST Zeina called from [facility] Home health [phone].. She spoke with Pt`s daughter Madelin at [phone]. Dana has had increased SOB. Oxygen level [...] on filedocumented in this encounter Care Teams Biomedical Engineering Aide Relationship Specialty Start Date End Date [facility], Pcp PCP - General Internal Medicine 09/08/22 11/08/22 Hawa Torres MD PCP - General Internal Medicine 11/09/22 Taya Gonzales MD Specialist Cardiology 11/01/20 Chandan Breen PA Specialist Cardiology 11/01/20 02/20/24 Jessi Erwin DNP Specialist Nurse Practitioner Family 02/21/24 documented as of this encounter
--- OUTSIDE RECORDS SUMMARY | 2024-12-05 16:51 | XMS_ITS | Encounter Summary ---
Author Organization [facility] Address [address] [place] [address] Care Team Providers Care Sider Mechanic Name Role Phone Hawa Torres MD Primary Care Provider Unavaila Taya Covington MD Unavailable [phone] Chandan Breen Unavailable Rancho Matthews MD Primary Care Provider [phone] [facility], Pcp Primary Care Provider UnavailRancho Brock MD Primary Care Provider +[phone] Hawa Torres MD Primary Care Provider Unavaila Hawa Maddox MD Primary Care Provider Unavaila elpidio [facility], Pcp Primary Care Provider Hawa Zavala MD Primary Care Provider Unavaila ble [facility], Pcp Primary Care Provider Hawa Zavala MD Primary Care Provider Unavaila ble Melonie Sorensen DO Primary Care Pro vider Unavailable [facility], Pcp Primary Care Provider Hawa Zavala MD Primary Care Provider Unavaila Jessi Cagle [facility] Unavailable +[phone] Encounter Details Date Type Department Care Team Description 09/07/2020 Pt. Non Urgent Medical Question Nephrology - [place] [address] [place] [address] Mc Barragan MD [address] [place] [address] Social History Tobacco Use Types Packs/Day Years [...] Telephone Encounter - Brandie Belle M.A. - 09/07/2020 1:[address] Barragan please advise documented in this encounter Plan of Treatment Not on file documented as of this encounter Visit Diagnoses Not on filedocumented in this encounter Care Teams Sider Mechanic Relationship Specialty Start Date End Date Hawa Torres MD PCP - General Internal Medicine 09/09/15 12/19/20 Rancho Matthews MD [address] [place] [address] PCP - General Internal Medicine 12/20/20 03/22/21 [facility], [address] [address] PCP - General Internal Medicine 03/23/21 04/11/21 Rancho Matthews MD [address] [place] [address] PCP - General Internal Medicine 04/12/21 04/12/21 Hawa Torres MD [address] [place] [address] PCP - General Internal Medicine 04/13/21 06/05/21 Hawa Torres MD [address] [place] [address]646 PCP - General Internal Medicine 06/06/21 08/07/21 [facility], Pcp [address] [place] [address] 80192 PCP - General Internal Medicine 08/08/21 10/27/21 Hawa Torres MD PCP - General Internal Medicine 10/28/21 04/11/22 [facility], Pcp [address] [place] [address]507 PCP - General Internal Medicine 04/12/22 05/01/22 Hawa Torres MD [address] [place] [address] 53943 PCP - General Internal Medicine 05/02/22 05/21/22 Melonie Sorensen, [address] [place] [address]277 PCP - General Internal Medicine 05/22/22 09/07/22 [facility], Pcp [address] [place] [address] 98008 PCP - General Internal Medicine 09/08/22 11/08/22 Hawa Torres MD [address] [place] [address] 87233 PCP - General Internal Medicine 11/09/22 Taya Gonzales MD Specialist Cardiology 11/01/20 Chandan Breen PA Specialist Cardiology 11/01/20 02/20/24 Jessi Erwin DNP [address] [place] [address]67 Specialist Nurse Practitioner [facility] 02/21/24 documented as of this encounter
--- OUTSIDE RECORDS SUMMARY | 2024-12-05 16:51 | XMS_ITS | Encounter Summary ---
Author Organization [facility] Address [address] [place] [address] Care Team Providers Care Shirt Ironer Name Role Phone Hawa Torres MD Primary Care Provider Unavaila Taya Covington MD Unavailable +[phone] Chandan Breen Unavailable + Rancho Matthews MD Primary Care Provider + [facility], Pcp Primary Care Provider UnavailRancho Brock MD Primary Care Provider +[phone] Hawa Torres MD Primary Care Provider Unavaila Hawa Maddox MD Primary Care Provider Unavaila elpidio [facility], Pcp Primary Care Provider UnavailHawa Barron MD Primary Care Provider Unavaila ble [facility], Pcp Primary Care Provider Hawa Zavala MD Primary Care Provider Unavaila Melonie Rojas DO Primary Care Pro vider Unavailable [facility], Pcp Primary Care Provider Hawa Zavala MD Primary Care Provider Unavaila Jessi Cagle [facility] Unavailable + [phone] Encounter Details Date Type Department Care Team Description 10/05/2020 Refill Medicine/Pediatrics - [address] [phone] Hawa Torres MD Social History Tobacco Use [...] on filedocumented in this encounter Care Teams Shirt Ironer Relationship Specialty Start Date End Date Hawa Torres MD PCP - General Internal Medicine 09/09/15 12/19/20 Rancho Matthews MD [address] [place] [address] PCP - General Internal Medicine 12/20/20 03/22/21 [facility], [address] [address] PCP - General Internal Medicine 03/23/21 04/11/21 Rancho Matthews MD [address] [place] [address] PCP - General Internal Medicine 04/12/21 04/12/21 Hawa Torres MD [address] [place] [address] 485[address] PCP - General Internal Medicine 04/13/21 06/05/21 Hawa Torres MD [address] [place] [address] PCP - General Internal Medicine 06/06/21 08/07/21 [facility], Pcp [address] [place] [address] PCP - General Internal Medicine 08/08/21 10/27/21 Hawa Torres MD PCP - General Internal Medicine 10/28/21 04/11/22 [facility], Pcp [address] [place] [address] PCP - General Internal Medicine 04/12/22 05/01/22 Hawa Torres MD [address] [place] [address] PCP - General Internal Medicine 05/02/22 05/21/22 Melonie Sorensen DO [address] [place] [address] PCP - General Internal Medicine 05/22/22 09/07/22 [facility], Pcp [address] [place] [address]2015 PCP - General Internal Medicine 09/08/22 11/08/22 Hawa Torres MD [address] [place] [address] 21172 PCP - General Internal Medicine 11/09/22 Taya Gonzales MD Specialist Cardiology 11/01/20 Chandan Breen PA Specialist Cardiology 11/01/20 02/20/24 Jessi Erwin DNP [address] [place] [address] Specialist Nurse Practitioner [facility] 02/21/24 documented as of this encounter
--- OUTSIDE RECORDS SUMMARY | 2024-12-05 16:51 | XMS_ITS | Clinical Summary ---
Author Organization [employer] [facility] Address [address] [place] [address] Care Team Providers Care Scenic Arts Supervisor Name Role Phone Hawa Fish MD Primary Care Provider [phone] Allergies Active Allergy Reactions Criticality Noted Date [...] age to complete this topic Care Teams Scenic Arts Supervisor Relationship Specialty Start Date End Date Hawa Fish MD PCP - General Internal Medicine 10/28/20
--- OUTSIDE RECORDS SUMMARY | 2024-12-05 16:51 | XMS_ITS | Encounter Summary ---
Author Organization [facility] Address [address] [place] [address] Care Team Providers Care Experimental Plastics Fabricator Name Role Phone Hawa Torres MD Primary Care Provider UnavailTaya Lira MD Unavailable +[phone] Chandan Breen Unavailable Rancho Matthews MD Primary Care Provider + [facility], [facility] Primary Care Provider UnavailRancho Brock MD Primary Care Provider +[phone] Hawa Torres MD Primary Care Provider Unavaila Hawa Maddox MD Primary Care Provider Unavaila elpidio [facility], Pcp Primary Care Provider UnavailHawa Barron MD Primary Care Provider Unavaila ble [facility], Pcp Primary Care Provider Hawa Zavala MD Primary Care Provider Unavaila Melonie Rojas DO Primary Care Pro vider Unavailable [facility], Pcp Primary Care Provider Hawa Zavala MD Primary Care Provider Unavaila Jessi Cagle [facility] Unavailable [phone] Encounter Details Date Type Department Care Team Description 04/11/2017 Hospital Medical Records [address] [place] [address] Social History Tobacco Use Types Packs/Day Years [...] on filedocumented in this encounter Care Teams Experimental Plastics Fabricator Relationship Specialty Start Date End Date Hawa Torres MD PCP - General Internal Medicine 09/09/15 12/19/20 Rancho Matthews MD [address] [place] [address] PCP - General Internal Medicine 12/20/20 03/22/21 [facility], Pcp [address] [place] [address] PCP - General Internal Medicine 03/23/21 04/11/21 Rancho Matthews MD [address] [place] [address] 42972 PCP - General Internal Medicine 04/12/21 04/12/21 Hawa Torres MD [address] [place] [address] 80254 PCP - General Internal Medicine 04/13/21 06/05/21 Hawa Torres MD [address] [place] [address] 60197 PCP - General Internal Medicine 06/06/21 08/07/21 [facility], Pcp [address] [place] [address] 32696 PCP - General Internal Medicine 08/08/21 10/27/21 Hawa Torres MD PCP - General Internal Medicine 10/28/21 04/11/22 [facility], Pcp [address] [place] [address] 34989 PCP - General Internal Medicine 04/12/22 05/01/22 Hawa Torres MD [address] [place] [address] 17208 PCP - General Internal Medicine 05/02/22 05/21/22 Melonie Sorensen DO [address] [place] [address] 40896 PCP - General Internal Medicine 05/22/22 09/07/22 [facility], Pcp [address] [place] [address] 17981 PCP - General Internal Medicine 09/08/22 11/08/22 Hawa Torres MD [address] [place] [address] 04603 PCP - General Internal Medicine 11/09/22 Taya Gonzales MD Specialist Cardiology 11/01/20 Chandan Breen PA Specialist Cardiology 11/01/20 02/20/24 Jessi Erwin, KITTY [address] [place] [address] Specialist Nurse Practitioner Family 02/21/24 documented as of this encounter
--- OUTSIDE RECORDS SUMMARY | 2024-12-05 16:51 | XMS_ITS | Encounter Summary ---
Author Organization [facility] Address [address] [place] [address] Care Team Providers Care Hotel Dining Room Cashier Name Role Phone Lul Lou MD Primary Care Provider Unavailab Salomón Cummings MD Primary Care Provider Unavail able Hawa Torres MD Primary Care Provider Unavaila Hawa Maddox MD Primary Care Provider Unavaila Taya Covington MD Unavailable [phone] Chandan Breen Unavailable Rancho Matthews MD Primary Care Provider [phone] [facility], Pcp Primary Care Provider UnavailRancho Brock MD Primary Care Provider [phone] Hawa Torres MD Primary Care Provider [...] Provider Unavaila ble Jessi Erwin DNP Unavailable [phone] Encounter Details Date Type Department Care Team Description 08/10/2012 [facility] Medical Records [address] [place] [id number] Reed Houston MD Social History Tobacco Use [...] on filedocumented in this encounter Care Teams Hotel Dining Room Cashier Relationship Specialty Start Date End Date Lul Lou MD PCP - General Internal Medicine 05/16/12 06/06/14 Salomón Lou MD PCP - General Internal Medicine 09/01/14 09/08/15 Hawa Torres MD PCP - General Internal Medicine 09/09/15 12/19/20 Hawa Torres MD PCP - General 06/07/14 08/31/14 Rancho Matthews MD [address] [place] [address] PCP - General Internal Medicine 12/20/20 03/22/21 [facility], [address] [address] PCP - General Internal Medicine 03/23/21 04/11/21 Rancho Matthews MD [address] [place] [address] 42767 PCP - General Internal Medicine 04/12/21 04/12/21 Hawa Torres MD [address] [place] [address]300 PCP - General Internal Medicine 04/13/21 06/05/21 Hawa Torres MD [address] [place] [address] 43330 PCP - General Internal Medicine 06/06/21 08/07/21 [facility], Pcp [address] [place] [address] 13867 PCP - General Internal Medicine 08/08/21 10/27/21 Hawa Torres MD PCP - General Internal Medicine 10/28/21 04/11/22 [facility], Pcp [address] [place] [address] 50276 PCP - General Internal Medicine 04/12/22 05/01/22 Hawa Torres MD [address] [place] [address]127 PCP - General Internal Medicine 05/02/22 05/21/22 Melonie Sorensen, [address] [place] [address]17 PCP - General Internal Medicine 05/22/22 09/07/22 [facility], Pcp [address] [place] [address] 70664 PCP - General Internal Medicine 09/08/22 11/08/22 Hawa Torres MD [address] [place] [address]1209 PCP - General Internal Medicine 11/09/22 Taya Gonzales MD Specialist Cardiology 11/01/20 Chandan Breen PA Specialist Cardiology 11/01/20 02/20/24 Jessi Erwin, KITTY [address] [place] [address] Specialist Nurse Practitioner [facility] 02/21/24 documented as of this encounter
--- OUTSIDE RECORDS SUMMARY | 2024-12-05 16:51 | XMS_ITS | Encounter Summary ---
Author Organization [facility] Address [address] [place] [address] Care Team Providers Care Podiatric Aide Name Role Phone Hawa Torres MD Primary Care Provider UnavailTaya Lira MD Unavailable +[phone] Chandan Breen Unavailable Rancho Matthews MD Primary Care Provider +[phone] [facility], Pcp Primary Care Provider UnavailRancho Brock MD Primary Care Provider +[phone] Hawa Torres MD Primary Care Provider Unavaila Hawa Maddox MD Primary Care Provider Unavaila elpidio [facility], Pcp Primary Care Provider UnavailHawa Barron MD Primary Care Provider Unavaila ble [facility], Pcp Primary Care Provider Hawa Zavala MD Primary Care Provider Unavaila Melonie Rojas DO Primary Care Pro vider Unavailable [facility], Pcp Primary Care Provider Hawa Zavala MD Primary Care Provider Unavaila Jessi Cagle [facility] Unavailable [phone] Encounter Details Date Type Department Care Team Description 12/29/2017 Hospital Medical Records [address] [place] [address] Rohit [place] [address] [place] [address] [phone] Social History Tobacco Use Types Packs/Day Years [...] on filedocumented in this encounter Care Teams Podiatric Aide Relationship Specialty Start Date End Date Hawa Torres MD PCP - General Internal Medicine 09/09/15 12/19/20 Rancho Matthews MD [address] [place] [address] PCP - General Internal Medicine 12/20/20 03/22/21 [facility], Pcp [address] [place], [place] [phone] PCP - General Internal Medicine 03/23/21 04/11/21 Rancho Matthews MD [address] [place] [address] PCP - General Internal Medicine 04/12/21 04/12/21 Hawa Torres MD [address] [place] [address] 29769 PCP - General Internal Medicine 04/13/21 06/05/21 Hawa Torres MD [address] [place] [address] 79489 PCP - General Internal Medicine 06/06/21 08/07/21 [facility], Pcp [address] [place] [address]283 PCP - General Internal Medicine 08/08/21 10/27/21 Hawa Torres MD PCP - General Internal Medicine 10/28/21 04/11/22 [facility], Pcp [address] [place] [address] 62531 PCP - General Internal Medicine 04/12/22 05/01/22 Hawa Torres MD [address] [place] [address] 11245 PCP - General Internal Medicine 05/02/22 05/21/22 Melonie Sorensen DO [address] [place] [address] 33334 PCP - General Internal Medicine 05/22/22 09/07/22 [facility], [address] [address] PCP - General Internal Medicine 09/08/22 11/08/22 Hawa Torres MD [address] [place] [address] 95265 PCP - General Internal Medicine 11/09/22 Taya Gonzales MD Specialist Cardiology 11/01/20 Chandan Breen PA Specialist Cardiology 11/01/20 02/20/24 Jessi Erwin DNP [address] [place] [address] 38968 Specialist Nurse Practitioner [facility] 02/21/24 documented as of this encounter
--- OUTSIDE RECORDS SUMMARY | 2024-12-05 16:52 | XMS_ITS | Encounter Summary ---
Author Organization [facility] Address [address] [place] [address] Care Team Providers Care Client Server Programmer Name Role Phone Taya Gonzales MD Unavailable + Chandan Breen Unavailable + Rancho Matthews MD Primary Care Provider + [facility], Pcp Primary [...] Sorensen DO Primary Care Pro vider Unavailable [facility], Pcp Primary Care Provider UnavailHawa Barron MD Primary Care Provider Unavaila ble Jessi Erwin [facility] Unavailable [phone] Encounter Details Date Type Department Care Team Description 01/17/2021 Refill Medicine/Pediatrics - [address] [phone] Karissa Murcia MD Social History Tobacco Use [...] on filedocumented in this encounter Care Teams Client Server Programmer Relationship Specialty Start Date End Date Rancho Matthews MD [address] [place] [address] PCP - General Internal Medicine 12/20/20 03/22/21 [facility], Pcp [address] [place] [address]141 PCP - General Internal Medicine 03/23/21 04/11/21 Rancho Matthews MD [address] [place] [address] 86437 PCP - General Internal Medicine 04/12/21 04/12/21 Hawa Torres MD [address] [place] [address]5720 PCP - General Internal Medicine 04/13/21 06/05/21 Hawa Torres MD [address] [place] [address] 24992 PCP - General Internal Medicine 06/06/21 08/07/21 [facility], Pcp [address] [place] [address] [place] [address] PCP - General Internal Medicine 08/08/21 10/27/21 Hawa Torres MD [address] [place] [address] 64603 PCP - General Internal Medicine 10/28/21 04/11/22 [facility], Pcp [address] [place] [address] 27602 PCP - General Internal Medicine 04/12/22 05/01/22 Hawa Torres MD [address] [place] [address] 65493 PCP - General Internal Medicine 05/02/22 05/21/22 Melonie Sorensen DO [address] [place] [address] 54779 PCP - General Internal Medicine 05/22/22 09/07/22 [facility], Pcp [address] [place] [address] 48431 PCP - General Internal Medicine 09/08/22 11/08/22 Hawa Torres MD [address] [place] [address] 09932 PCP - General Internal Medicine 11/09/22 Taya Gonzales MD Specialist Cardiology 11/01/20 Chandan Breen PA Specialist Cardiology 11/01/20 02/20/24 Jessi Erwin, KITTY [address] [place] [address] Specialist Nurse Practitioner [facility] 02/21/24 documented as of this encounter
--- OUTSIDE RECORDS SUMMARY | 2024-12-05 16:52 | XMS_ITS | Encounter Summary ---
Author Organization [facility] Address [address] [place] [address] Care Team Providers Care Sole Stitcher Hand Name Role Phone Hawa Torres MD Primary Care Provider UnavailTaya Lira MD Unavailable +[phone] Chandan Breen Unavailable Rancho Matthews MD Primary Care Provider + [facility], Pcp Primary Care Provider UnavailRancho Brock MD Primary Care Provider +[phone] Hawa Torres MD Primary Care Provider Unavaila Hawa Maddox MD Primary Care Provider Unavaila elpidio [facility], Pcp Primary Care Provider UnavailHawa Barron MD Primary Care Provider Unavaila ble [facility], Pcp Primary Care Provider Hawa Zavala MD Primary Care Provider Unavaila Melonie Rojas DO Primary Care Pro vider Unavailable Community, Pcp Primary Care Provider Hawa Zavala MD Primary Care Provider Unavaila Jessi Cagle [facility] Unavailable [phone] Encounter Details Date Type Department Care Team Description 03/20/2016 Transfer Records Medical Records [address] [place] [id number] [place] [address] Kiran Social History Tobacco Use Types Packs/Day [...] on filedocumented in this encounter Care Teams Sole Stitcher Hand Relationship Specialty Start Date End Date Hawa Torres MD PCP - General Internal Medicine 09/09/15 12/19/20 Rancho Matthews MD [address] [place] [address] 41213 PCP - General Internal Medicine 12/20/20 03/22/21 [facility], Pcp [address] [place] [address] 57607 PCP - General Internal Medicine 03/23/21 04/11/21 Rancho Matthews MD [address] [place] [address] 86827 PCP - General Internal Medicine 04/12/21 04/12/21 Hawa Torres MD [address] [place] [address] 73128 PCP - General Internal Medicine 04/13/21 06/05/21 Hawa Torres MD [address] [place] [address] 99466 PCP - General Internal Medicine 06/06/21 08/07/21 [facility], Pcp [address] [place] [address] 59993 PCP - General Internal Medicine 08/08/21 10/27/21 Hawa Torres MD PCP - General Internal Medicine 10/28/21 04/11/22 [facility], Pcp [address] [place] [address] 80893 PCP - General Internal Medicine 04/12/22 05/01/22 Hawa Torres MD [address] [place] [address] 46773 PCP - General Internal Medicine 05/02/22 05/21/22 Melonie Sorensen, [address] [place] [address] 43514 PCP - General Internal Medicine 05/22/22 09/07/22 [facility], Pcp [address] [place] [address] 46605 PCP - General Internal Medicine 09/08/22 11/08/22 Hawa Torres MD [address] [place] [address] 02614 PCP - General Internal Medicine 11/09/22 Taya Gonzales MD Specialist Cardiology 11/01/20 Chandan Breen PA Specialist Cardiology 11/01/20 02/20/24 Jessi Erwin DNP [address] [place] [address]20 Specialist Nurse Practitioner [facility] 02/21/24 documented as of this encounter
--- OUTSIDE RECORDS SUMMARY | 2024-12-05 16:52 | XMS_ITS | Encounter Summary ---
Author Organization [facility] Address [address] [place] [address] Care Team Providers Care System Admin Name Role Phone Hawa Torres MD Primary Care Provider Unavaila Taya Covington MD Unavailable + Chandan Breen Unavailable + Rancho Matthews MD Primary Care Provider + [facility], Pcp Primary Care Provider UnavailRancho Brock MD Primary Care Provider + Hawa Torres MD Primary Care Provider Unavaila Hawa Maddox MD Primary Care Provider Unavaila ble [facility], Pcp Primary Care Provider UnavailHawa Barron MD Primary Care Provider Unavaila ble [facility], Pcp Primary Care Provider Hawa Zavala MD Primary Care Provider Unavaila ble Melonie Sorensen DO Primary Care Pro vider Unavailable [facility], Pcp Primary Care Provider Hawa Zavala MD Primary Care Provider Unavaila Jessi Cagle DNP Unavailable [phone] Encounter Details Date Type Department Care Team Description 04/17/2016 Pt. Non Urgent Medical Question Cardiology - [place] [address] [place] [address] [phone] Jessi Erwin DNP [address] [place] [address] [phone] Social History Tobacco Use Types Packs/Day Years [...] AM EDTFrom: Dana Grant To: Jessi Erwin DNP,ONION FARMER Sent: 04/17/2016 9:31 PM EDT Subject: Dana Grant meds Good Morning, I apologize for my delay in this response. Mom is taking the Isosorbide/Imdur 30 mg once a day. Thank you, Madelin documented in this encounter Plan of Treatment Not on file documented as of this encounter Visit Diagnoses Not on filedocumented in this encounter Care Teams System Admin Relationship Specialty Start Date End Date Hawa Torres MD PCP - General Internal Medicine 09/09/15 12/19/20 Rancho Matthews MD [address] [place] [address] 04008 PCP - General Internal Medicine 12/20/20 03/22/21 [facility], [address] [address] PCP - General Internal Medicine 03/23/21 04/11/21 Rancho Matthews MD [address] [place] [address] 65553 PCP - General Internal Medicine 04/12/21 04/12/21 Hawa Torres MD [address] [place] [address] 75111 PCP - General Internal Medicine 04/13/21 06/05/21 Hawa Torres MD [address] [place] [address] 66371 PCP - General Internal Medicine 06/06/21 08/07/21 [facility], Pcp [address] [place] [address] PCP - General Internal Medicine 08/08/21 10/27/21 Hawa Torres MD PCP - General Internal Medicine 10/28/21 04/11/22 [facility], Pcp [address] [place] [address] 94988 PCP - General Internal Medicine 04/12/22 05/01/22 Hawa Torres MD [address] [place] [address] PCP - General Internal Medicine 05/02/22 05/21/22 Melonie Sorensen, [address] [place] [address] PCP - General Internal Medicine 05/22/22 09/07/22 [facility], Pcp [address] [place] [address] PCP - General Internal Medicine 09/08/22 11/08/22 Hawa Torres MD [address] [place] [address] PCP - General Internal Medicine 11/09/22 Taya Gonzales MD Specialist Cardiology 11/01/20 Chandan Breen PA Specialist Cardiology 11/01/20 02/20/24 Jessi Erwin DNP [address] [place] [address] 28401 Specialist Nurse Practitioner [facility] 02/21/24 documented as of this encounter
--- OUTSIDE RECORDS SUMMARY | 2024-12-05 16:52 | XMS_ITS | Encounter Summary ---
Author Organization [facility] Address [address] [place] [address] Care Team Providers Care Motorcycle Riding Instructor Name Role Phone Taya Gonzales MD Unavailable [phone] Chandan Breen Unavailable Melonie Sorensen DO Primary Care Pro vider Unavailable [facility], Pcp Primary Care Provider UnavailHawa Barron MD Primary Care Provider UnavailJessi Hogan DNP Unavailable [phone] Encounter Details Date Type Department Care Team Description 08/25/2022 SCAN Medical Records [address] [place] [id number] Abstract, Provider Social History Tobacco Use Types [...] Associated Diagnosis Comments OUTSIDE PLAIN FILM Routine 08/25/2022 documented in this encounter Results * OUTSIDE PLAIN FILM (08/25/2022) Provider Abstract RADIOLOGY documented in this encounter Visit Diagnoses Not on filedocumented in this encounter Care Teams Motorcycle Riding Instructor Relationship Specialty Start Date End Date Melonie Sorensen DO PCP - General Internal Medicine 05/22/22 09/07/22 [facility], [facility] PCP - General Internal Medicine 09/08/22 11/08/22 Hawa Torres MD PCP - General Internal Medicine 11/09/22 Taya Gonzales MD Specialist Cardiology 11/01/20 Chandan Breen PA Specialist Cardiology 11/01/20 02/20/24 Jessi Erwin DNP Specialist Nurse Practitioner Family 02/21/24 documented as of this encounter
--- OUTSIDE RECORDS SUMMARY | 2024-12-05 16:52 | XMS_ITS | Encounter Summary ---
Author Organization [facility] Address [address] [place] [address] Care Team Providers Care Insurance Account Representative Name Role Phone Taya Gonzales MD Unavailable [phone] Chandan Breen Unavailable + Rancho Matthews MD Primary Care Provider [phone] [facility], Pcp Primary Care Provider UnavailRancho Brock MD Primary Care Provider [phone] Hawa Torres MD Primary Care Provider Unavaila Hawa Maddox MD Primary Care Provider Unavaila ble [facility], Pcp Primary Care Provider UnavailHawa Barron MD Primary Care Provider Unavaila ble [facility], Pcp Primary Care Provider UnavailHawa Barron MD Primary Care Provider Unavaila ble Melonie Sorensen DO Primary Care Pro vider Unavailable [facility], Pcp Primary Care Provider UnavailHawa Barron MD Primary Care Provider Unavaila ble Jessi Erwin [facility] Unavailable [phone] Encounter Details Date Type Department Care Team Description 03/01/2021 Income Tax Adjuster Report Medical Records [address] [place] [phone] Simone, [facility] Social History Tobacco Use Types Packs/Day [...] filedocumented in this encounter Care Teams Insurance Account Representative Relationship Specialty Start Date End Date Rancho Matthews MD [address] [place] [address] PCP - General Internal Medicine 12/20/20 03/22/21 [facility], Pcp [address] [place] [address] 10845 PCP - General Internal Medicine 03/23/21 04/11/21 Rancho Matthews MD [address] [place] [address] 78553 PCP - General Internal Medicine 04/12/21 04/12/21 Hawa Torres MD [address] [place] [address] 89999 PCP - General Internal Medicine 04/13/21 06/05/21 Hawa Torres MD [address] [place] [address] 88331 PCP - General Internal Medicine 06/06/21 08/07/21 [facility], Pcp [address] [place] [address] 74465 PCP - General Internal Medicine 08/08/21 10/27/21 Hawa Torres MD [address] [place] [address] 39575 PCP - General Internal Medicine 10/28/21 04/11/22 [facility], Pcp [address] [place] [address] 01280 PCP - General Internal Medicine 04/12/22 05/01/22 Hawa Torres MD [address] [place] [address] 90393 PCP - General Internal Medicine 05/02/22 05/21/22 Melonie Sorensen DO [address] [place] [address] 80068 PCP - General Internal Medicine 05/22/22 09/07/22 [facility], [address] [address] PCP - General Internal Medicine 09/08/22 11/08/22 Hawa Torres MD [address] [place] [address] 00856 PCP - General Internal Medicine 11/09/22 Taya Gonzales MD Specialist Cardiology 11/01/20 Chandan Breen PA Specialist Cardiology 11/01/20 02/20/24 Jessi Erwin DNP [address] [place] [address] 23078 Specialist Nurse Practitioner [facility] 02/21/24 documented as of this encounter
--- OUTSIDE RECORDS SUMMARY | 2024-12-05 16:52 | XMS_ITS | Encounter Summary ---
Author Organization [facility] Address [address] [place] [address] Care Team Providers Care Bath Attendant Name Role Phone Taya Gonzales MD Unavailable [phone] Chandan Breen Unavailable Hawa Torres MD Primary Care Provider Unavaila Jessi Cagle DNP Unavailable [phone] Encounter Details Date Type Department Care Team Description 08/07/2023 CGM Report Medical Records [address] [place] [address] [phone] Abstract, Provider Social History Tobacco Use Types [...] on filedocumented in this encounter Care Teams Bath Attendant Relationship Specialty Start Date End Date Hawa Torres MD PCP - General Internal Medicine 11/09/22 Taya Gonzales MD Specialist Cardiology 11/01/20 Chandan Breen PA Specialist Cardiology 11/01/20 02/20/24 Jessi Erwin DNP Specialist Nurse Practitioner Family 02/21/24 documented as of this encounter
--- OUTSIDE RECORDS SUMMARY | 2024-12-05 16:52 | XMS_ITS | Encounter Summary ---
Author Organization [facility] Address [address] [place] [address] Care Team Providers Care Band Reamer Machine Operator Name Role Phone Hawa Torres MD Primary Care Provider Unavaila Taya Covington MD Unavailable [phone] Chandan Breen Unavailable + Rancho Matthews MD Primary Care Provider + [facility], Pcp Primary Care Provider UnavailRancho Brock MD Primary Care Provider [phone] Hawa Torres MD Primary Care Provider Unavaila Hawa Maddox MD Primary Care Provider Unavaila elpidio [facility], Pcp Primary Care Provider UnavailHawa Barron MD Primary Care Provider Unavaila ble [facility], Pcp Primary Care Provider Hawa Zavala MD Primary Care Provider Unavaila ble Melonie Sorensen DO Primary Care Pro vider Unavailable [facility], Pcp Primary Care Provider Hawa Zavala MD Primary Care Provider Unavaila Jessi Cagle [facility] Unavailable + [phone] Encounter Details Date Type Department Care Team Description 12/10/2018 Orders Only Medicine/Pediatrics - [address] [phone] Danuta Jiménez PA-C Anemia, chronic disease (Primary [...] - 900 pg/mL 04/18/2019 2:16 PM EDT [facility] 04/18/2019 10:0 7 AM EDT 04/18/2019 10:07 AM EDT Danuta Jiménez PA-C [facility] documented in this encounter Visit Diagnoses Diagnosis Anemia, chronic disease- Primary Anemia of other chronic disease documented in this encounter Care Teams Band Reamer Machine Operator Relationship Specialty Start Date End Date Hawa Torres MD PCP - General Internal Medicine 09/09/15 12/19/20 Rancho Matthews MD [address] [place] [address]455 PCP - General Internal Medicine 12/20/20 03/22/21 [facility], [address] [address] PCP - General Internal Medicine 03/23/21 04/11/21 Rancho Matthews MD [address] [place] [address] PCP - General Internal Medicine 04/12/21 04/12/21 Hawa Torres MD [address] [place] [address] 99310 PCP - General Internal Medicine 04/13/21 06/05/21 Hawa Torres MD [address] [place] [address] PCP - General Internal Medicine 06/06/21 08/07/21 [facility], Pcp [address] [place] [address]40 PCP - General Internal Medicine 08/08/21 10/27/21 Hawa Torres MD PCP - General Internal Medicine 10/28/21 04/11/22 [facility], Pcp [address] [place] [address] 39899 PCP - General Internal Medicine 04/12/22 05/01/22 Hawa Torres MD [address] [place] [address] PCP - General Internal Medicine 05/02/22 05/21/22 Melonie Sorensen, DO [address] [place] [address] PCP - General Internal Medicine 05/22/22 09/07/22 [facility], Pcp [address] [place] [address] PCP - General Internal Medicine 09/08/22 11/08/22 Hawa Torres MD [address] [place] [address] PCP - General Internal Medicine 11/09/22 Taya Gonzales MD Specialist Cardiology 11/01/20 Chandan Breen PA Specialist Cardiology 11/01/20 02/20/24 Jessi Erwin DNP [address] [place] [address] Specialist Nurse Practitioner [facility] 02/21/24 documented as of this encounter
--- OUTSIDE RECORDS SUMMARY | 2024-12-05 16:52 | XMS_ITS | Encounter Summary ---
Author Organization [facility] Address [address] [place] [address] Care Team Providers Care Scale Technician Name Role Phone Taya Gonzales MD Unavailable [phone] Chandan Breen Unavailable Hawa Torres MD Primary Care Provider Unavaila Jessi Cagle DNP Unavailable [phone] Encounter Details Date Type Department Care Team Description 04/04/2023 CGM Report Medical Records [address] [place] [phone] Abstract, Provider Social History Tobacco Use Types [...] on filedocumented in this encounter Care Teams Scale Technician Relationship Specialty Start Date End Date Hawa Torres MD PCP - General Internal Medicine 11/09/22 Taya Gonzales MD Specialist Cardiology 11/01/20 Chandan Breen PA Specialist Cardiology 11/01/20 02/20/24 Jessi Erwin DNP Specialist Nurse Practitioner Family 02/21/24 documented as of this encounter
--- OUTSIDE RECORDS SUMMARY | 2024-12-05 16:52 | XMS_ITS | Encounter Summary ---
Author Organization [facility] Address [address] [place] [address] Care Team Providers Care Eradicator Name Role Phone Hawa Torres MD Primary Care Provider Unavaila Taya Covington MD Unavailable [phone] Chandan Breen Unavailable Rancho Matthews MD Primary Care Provider + [facility], Pcp Primary Care Provider UnavailRancho Brock MD Primary Care Provider [phone] Hawa Torres MD Primary Care Provider Unavaila Hawa Maddox MD Primary Care Provider Unavaila elpidio [facility], Pcp Primary Care Provider UnavailHawa Barron MD Primary Care Provider Unavaila ble [facility], Pcp Primary Care Provider Hawa Zavlaa MD Primary Care Provider Unavaila ble Melonie Sorensen DO Primary Care Pro vider Unavailable [facility], Pcp Primary Care Provider Hawa Zavala MD Primary Care Provider Unavaila Jessi Cagle [facility] Unavailable + [phone] Reason for Visit * Reason Onset Date Comments Remote Device Check 11/27/2020 Encounter Details Date Type Department Care Team Description 11/27/2020 Telephone Cardio PVC POC [address] [place] [address] Nikhil Sorenson MD [address] [place] [address] [phone] Remote Device Check Social History Tobacco Use [...] oncology (she needs radiation on the side [facility] is located) * Telephone Encounter - Taya [...] on filedocumented in this encounter Care Teams Eradicator Relationship Specialty Start Date End Date Hawa Torres MD PCP - General Internal Medicine 09/09/15 12/19/20 Rancho Matthews MD [address] [place] [address] 67569 PCP - General Internal Medicine 12/20/20 03/22/21 [facility], [address] [address] PCP - General Internal Medicine 03/23/21 04/11/21 Rancho Matthews MD [address] [place] [address] 85794 PCP - General Internal Medicine 04/12/21 04/12/21 Hawa Torres MD [address] [place] [address] 78356 PCP - General Internal Medicine 04/13/21 06/05/21 Hawa Torres MD [address] [place] [address] 43066 PCP - General Internal Medicine 06/06/21 08/07/21 [facility], Pcp [address] [place] [address] 56978 PCP - General Internal Medicine 08/08/21 10/27/21 Hawa Torres MD PCP - General Internal Medicine 10/28/21 04/11/22 [facility], Pcp [address] [place] [address] 46916 PCP - General Internal Medicine 04/12/22 05/01/22 Hawa Torres MD [address] [place] [address] PCP - General Internal Medicine 05/02/22 05/21/22 Melonie Sorensen, [address] [place] [address] 16518 PCP - General Internal Medicine 05/22/22 09/07/22 [facility], Pcp [address] [place] [address] PCP - General Internal Medicine 09/08/22 11/08/22 Hawa Torres MD [address] [place] [address] 13642 PCP - General Internal Medicine 11/09/22 Taya Gonzales MD Specialist Cardiology 11/01/20 Chandan Breen PA Specialist Cardiology 11/01/20 02/20/24 Jessi Erwin DNP [address] [place] [address]642 Specialist Nurse Practitioner [facility] 02/21/24 documented as of this encounter
--- OUTSIDE RECORDS SUMMARY | 2024-12-05 16:52 | XMS_ITS | Encounter Summary ---
Author Organization [facility] Address [address] [place] [address] Care Team Providers Care Gasoline Finisher Name Role Phone Lul Lou MD Primary Care Provider Unavailab Salomón Cummings MD Primary Care Provider Unavail able Hawa Torres MD Primary Care Provider Unavaila Hawa Maddox MD Primary Care Provider Unavaila Taya Covington MD Unavailable Chandan Breen Unavailable Rancho Matthews MD Primary Care Provider [phone] Count Includes [facility], Pcp Primary Care Provider Unavailabl Rancho Martin MD Primary Care Provider [phone] Hawa Torres MD Primary Care Provider Unavaila Hawa Maddox MD Primary Care Provider Unavaila ble Count Includes [facility], Pcp Primary Care Provider UnavailHawa Barron MD Primary Care Provider Unavaila ble Count Includes [facility], Pcp Primary Care Provider UnavailHawa Barron MD Primary Care Provider Unavaila ble Melonie Sorensen DO Primary Care Pro vider Unavailable Count Includes [facility], Pcp Primary Care Provider UnavailHawa Barron MD Primary Care Provider Unavaila ble Jessi Erwin DNP Unavailable [phone] Reason for Visit * Reason Onset Date Comments medication problems 02/19/2013 Encounter Details Date Type Department Care Team Description 02/19/2013 Telephone Medicine/Pediatrics [address] [phone] Lul Lou MD medication problems Social History Tobacco Use [...] encounter Miscellaneous Notes * Telephone Encounter - Miriam Mtz M.A. - 02/20/2013 3:32 PM EDT He hasnt been off of it, it was given in 07/2012 with 5 additional refills * Telephone Encounter - Lul Lou MD - 02/20/2013 3:26 PM EDT When is the last time she took the isosorbide? * Telephone Encounter - Mariia BurroughsP.NSpencer - 02/19/2013 2:12 PM EDT Please sign but review pt has not had the Isosorbid since 2011 please advise is he still on this medication * Telephone Encounter - Demetria Camp - 02/19/2013 2:04 PM EDT What is the name of the medication patient is having a problem with?: furosemide 40mg, plavix 75mg,isosirbide mono er 30mg What is the problem?: need to be 90 day supplies per insurance request Is the patient calling about the problem? NO If the patient is not the caller who is? Moraima Is this a NEW medication?: NO How long has the patient been taking this medication? Who prescribed this medication for the patient? Lul Lou MD Who is patients PCP?: Lul Lou MD Payor: [facility] FFS Plan: [facility] MEDICARE PREMIUM $15 [place] Product Type: MEDICARE [id number] documented in this encounter Plan of Treatment Not on file documented as of this encounter Visit Diagnoses Not on filedocumented in this encounter Care Teams Gasoline Finisher Relationship Specialty Start Date End Date Lul Lou MD PCP - General Internal Medicine 05/16/12 06/06/14 Salomón Lou MD PCP - General Internal Medicine 09/01/14 09/08/15 Hawa Torres MD PCP - General Internal Medicine 09/09/15 12/19/20 Hawa Torres MD PCP - General 06/07/14 08/31/14 Rancho Matthews MD [address] [place] [address] PCP - General Internal Medicine 12/20/20 03/22/21 Count Includes [facility], Pcp [address] [place] [address]47 PCP - General Internal Medicine 03/23/21 04/11/21 Rancho Matthews MD [address] [place] [address] 37290 PCP - General Internal Medicine 04/12/21 04/12/21 Hawa Torres MD [address] [place] [address] 55560 PCP - General Internal Medicine 04/13/21 06/05/21 Hawa Torres MD [address] [place] [address] 82330 PCP - General Internal Medicine 06/06/21 08/07/21 Count Includes [facility], [address] [address] PCP - General Internal Medicine 08/08/21 10/27/21 Hawa Torres MD PCP - General Internal Medicine 10/28/21 04/11/22 Count Includes [facility], Pcp [address] [place] [address] 70291 PCP - General Internal Medicine 04/12/22 05/01/22 Hawa Torres MD [address] [place] [address] 32361 PCP - General Internal Medicine 05/02/22 05/21/22 Melonie Sorensen, DO [address] [place] [address] 10241 PCP - General Internal Medicine 05/22/22 09/07/22 Count Includes [facility], Pcp [address] [place] [address] 90851 PCP - General Internal Medicine 09/08/22 11/08/22 Hawa Torres MD [address] [place] [address] 49265 PCP - General Internal Medicine 11/09/22 Taya Gonzales MD Specialist Cardiology 11/01/20 Chandan Breen PA Specialist Cardiology 11/01/20 02/20/24 Jessi Erwin, KITTY [address] [place] [address] 12118 Specialist Nurse Practitioner [facility] 02/21/24 documented as of this encounter
--- OUTSIDE RECORDS SUMMARY | 2024-12-05 16:52 | XMS_ITS | Encounter Summary ---
Author Organization [facility] Address [address] [place] [address] Care Team Providers Care Small Animal Veterinarian Name Role Phone Hawa Torres MD Primary Care Provider Unavaila Taya Covington MD Unavailable +[phone] Chandan Breen Unavailable Rancho Matthews MD Primary Care Provider +[phone] [facility], Pcp Primary Care Provider UnavailRancho Brock MD Primary Care Provider +[phone] Hawa Torres MD Primary Care Provider Unavaila Hawa Maddox MD Primary Care Provider Unavaila elpidio [facility], Pcp Primary [...] Unavaila Jessi Cagle [facility] Unavailable + [phone] Reason for Visit * Reason Onset Date Comments Faxed Refill 01/29/2020 Encounter Details Date Type Department Care Team Description 01/29/2020 Telephone Medicine/Pediatrics - [address] [phone] Hawa Torres MD Faxed Refill [...] on filedocumented in this encounter Care Teams Small Animal Veterinarian Relationship Specialty Start Date End Date Hawa Torres MD PCP - General Internal Medicine 09/09/15 12/19/20 Rancho Matthews MD [address] [place] [address] 89994 PCP - General Internal Medicine 12/20/20 03/22/21 [facility], Pcp [address] [place] [address] 19216 PCP - General Internal Medicine 03/23/21 04/11/21 Rancho Matthews MD [address] [place] [address] 18037 PCP - General Internal Medicine 04/12/21 04/12/21 Hawa Torres MD [address] [place] [address] 75443 PCP - General Internal Medicine 04/13/21 06/05/21 Hawa Torres MD [address] [place] [address] 12497 PCP - General Internal Medicine 06/06/21 08/07/21 [facility], Pcp [address] [place] [address] 68265 PCP - General Internal Medicine 08/08/21 10/27/21 Hawa Torres MD PCP - General Internal Medicine 10/28/21 04/11/22 [facility], Pcp [address] [place] [address] 58172 PCP - General Internal Medicine 04/12/22 05/01/22 Hawa Torres MD [address] [place] [address] 28195 PCP - General Internal Medicine 05/02/22 05/21/22 Melonie Sorensen, DO [address] [place] [address] 71331 PCP - General Internal Medicine 05/22/22 09/07/22 [facility], Pcp [address] [place] [address] 45752 PCP - General Internal Medicine 09/08/22 11/08/22 Hawa Torres MD [address] [place] [address] 79358 PCP - General Internal Medicine 11/09/22 Taya Gonzales MD Specialist Cardiology 11/01/20 Chandan Breen PA Specialist Cardiology 11/01/20 02/20/24 Jessi Erwin, KITTY [address] [place] [address]3974 Specialist Nurse Practitioner Family 02/21/24 documented as of this encounter
--- OUTSIDE RECORDS SUMMARY | 2024-12-05 16:52 | XMS_ITS | Encounter Summary ---
Author Organization [facility] Address [address] [place] [address] Care Team Providers Care Axle And Frame Mechanic Name Role Phone Taya Gonzales MD Unavailable [phone] Chandan Breen Unavailable Hawa Torres MD Primary Care Provider Unavaila Jessi Cagle DNP Unavailable [phone] Encounter Details Date Type Department Care Team Description 01/10/2024 Hospital Medical Records [address] [place] [id number] [place] [address] Social History Tobacco Use Types Packs/Day Years [...] on filedocumented in this encounter Care Teams Axle And Frame Mechanic Relationship Specialty Start Date End Date Hawa Torres MD PCP - General Internal Medicine 11/09/22 Taya Gonzales MD Specialist Cardiology 11/01/20 Chandan Breen PA Specialist Cardiology 11/01/20 02/20/24 Jessi Erwin DNP Specialist Nurse Practitioner Family 02/21/24 documented as of this encounter
--- OUTSIDE RECORDS SUMMARY | 2024-12-05 16:52 | XMS_ITS | Encounter Summary ---
Author Organization [facility] Address [address] [place] [address] Care Team Providers Care Education Sales Consultant Name Role Phone Hawa Torres MD Primary Care Provider UnavailTaya Lira MD Unavailable [phone] Chandan Breen Unavailable + Rancho Matthews MD Primary Care Provider [phone] [facility], Pcp Primary Care Provider UnavailRancho Brock MD Primary Care Provider + Hawa Torres MD Primary Care Provider Unavaila Hawa Maddox MD Primary Care Provider Unavaila elpidio [facility], Pcp Primary Care Provider Hawa Zavala MD Primary Care Provider Unavaila ble [facility], Pcp Primary Care Provider Hawa Zavala MD Primary Care Provider Unavaila Melonie Rojas DO Primary Care Pro vider Unavailable [facility], Pcp Primary Care Provider Hawa Zavala MD Primary Care Provider Unavaila Jessi Cagle [facility] Unavailable + Encounter Details Date Type Department Care Team Description 11/04/2020 Pt. Non Urgent Medical Question Cardio PVC POC 154 [address] [facility] [address] [place] [address] Taya Gonzales MD [address] [place] [address] [phone] Social History Tobacco Use Types Packs/Day Years [...] on filedocumented in this encounter Care Teams Education Sales Consultant Relationship Specialty Start Date End Date Hawa Torres MD PCP - General Internal Medicine 09/09/15 12/19/20 Rancho Matthews MD [address] [place] [address] 69121 PCP - General Internal Medicine 12/20/20 03/22/21 [facility], [address] [address] PCP - General Internal Medicine 03/23/21 04/11/21 Rancho Matthews MD [address] [place] [address] 89507 PCP - General Internal Medicine 04/12/21 04/12/21 Hawa Torres MD [address] [place] [address] 65252 PCP - General Internal Medicine 04/13/21 06/05/21 Hawa Torres MD [address] [place] [address] 51398 PCP - General Internal Medicine 06/06/21 08/07/21 [facility], [address] [address] PCP - General Internal Medicine 08/08/21 10/27/21 Hawa Torres MD PCP - General Internal Medicine 10/28/21 04/11/22 [facility], Pcp [address] [place] [address] 12475 PCP - General Internal Medicine 04/12/22 05/01/22 Hawa Torres MD [address] [place] [address] 57151 PCP - General Internal Medicine 05/02/22 05/21/22 Melonie Sorensen, [address] [place] [address] 44390 PCP - General Internal Medicine 05/22/22 09/07/22 [facility], Pcp [address] [place] [address] 34297 PCP - General Internal Medicine 09/08/22 11/08/22 Hawa Torres MD [address] [place] [address] 93371 PCP - General Internal Medicine 11/09/22 Taya Gonzales MD Specialist Cardiology 11/01/20 Chandan Breen PA Specialist Cardiology 11/01/20 02/20/24 Jessi Erwin DNP [address] [place] [address] Specialist Nurse Practitioner [facility] 02/21/24 documented as of this encounter
--- OUTSIDE RECORDS SUMMARY | 2024-12-05 16:52 | XMS_ITS | Encounter Summary ---
Author Organization [facility] Address [address] [place] [address] Care Team Providers Care Secretary Board Of Commissioners Name Role Phone Taya Gonzales MD Unavailable [phone] Chandan Breen Unavailable [facility], Pcp Primary Care Provider Hawa Zavala MD Primary Care Provider UnavailJessi Hogan DNP Unavailable [phone] Encounter Details Date Type Department Care Team Description 10/20/2022 Hospital Medical Records [address] [place] [address] Social History Tobacco Use Types Packs/Day Years [...] on filedocumented in this encounter Care Teams Secretary Board Of Commissioners Relationship Specialty Start Date End Date [facility], [facility]cp PCP - General Internal Medicine 09/08/22 11/08/22 Hawa Torres MD PCP - General Internal Medicine 11/09/22 Taya Gonzales MD Specialist Cardiology 11/01/20 Chandan Breen PA Specialist Cardiology 11/01/20 02/20/24 Jessi Erwin DNP Specialist Nurse Practitioner Family 02/21/24 documented as of this encounter
--- OUTSIDE RECORDS SUMMARY | 2024-12-05 16:52 | XMS_ITS | Encounter Summary ---
Author Organization [facility] Address [address] [place] [address] Care Team Providers Care Plastic Production Machine Setter Name Role Phone Taya Gonzales MD Unavailable [phone] Chandan Breen Unavailable + Rancho Matthews MD Primary Care Provider [phone] [facility], Pcp Primary Care Provider UnavailRancho Brock MD Primary Care Provider [phone] Hawa Torres MD Primary Care Provider Unavaila Hawa Maddox MD Primary Care Provider Unavaila ble [facility], Pcp Primary Care Provider UnavailHawa Barron MD Primary Care Provider Unavaila ble [facility], Pcp Primary Care Provider UnavailHawa Barron MD Primary Care Provider Unavaila ble Melonie Sorensen DO Primary Care Pro vider Unavailable [facility], Pcp Primary Care Provider UnavailHawa Barron MD Primary Care Provider Unavaila ble Jessi Erwin [facility] Unavailable [phone] Encounter Details Date Type Department Care Team Description 02/25/2021 Hospital Medical Records [address] [place] [address] Social History Tobacco Use Types Packs/Day Years [...] on filedocumented in this encounter Care Teams Plastic Production Machine Setter Relationship Specialty Start Date End Date Rancho Matthews MD [address] [place] [address] 13779 PCP - General Internal Medicine 12/20/20 03/22/21 [facility], [address] [address] PCP - General Internal Medicine 03/23/21 04/11/21 Rancho Matthews MD [address] [place] [address] 43263 PCP - General Internal Medicine 04/12/21 04/12/21 Hawa Torres MD [address] [place] [address] 35299 PCP - General Internal Medicine 04/13/21 06/05/21 Hawa Torres MD [address] [place] [address] 67498 PCP - General Internal Medicine 06/06/21 08/07/21 [facility], Pcp [address] [place] [address] 58035 PCP - General Internal Medicine 08/08/21 10/27/21 Hawa Torres MD [address] [place] [address] 85780 PCP - General Internal Medicine 10/28/21 04/11/22 [facility], Pcp [address] [place] [address] 04030 PCP - General Internal Medicine 04/12/22 05/01/22 Hawa Torres MD [address] [place] [address] 26516 PCP - General Internal Medicine 05/02/22 05/21/22 Melonie Sorensen, DO [address] [place] [address] 24482 PCP - General Internal Medicine 05/22/22 09/07/22 [facility], Pcp [address] [place] [address] 81152 PCP - General Internal Medicine 09/08/22 11/08/22 Hawa Torres MD [address] [place] [address] 29848 PCP - General Internal Medicine 11/09/22 Taya Gonzales MD Specialist Cardiology 11/01/20 Chandan Breen PA Specialist Cardiology 11/01/20 02/20/24 Jessi Erwin DNP [address] [place] [address], [place] [address] Specialist Nurse Practitioner [facility] 02/21/24 documented as of this encounter
--- OUTSIDE RECORDS SUMMARY | 2024-12-05 16:52 | XMS_ITS | Encounter Summary ---
Author Organization [facility] Address [address] [place] [address] Care Team Providers Care Hr Manager Name Role Phone Unavailable Primary Care Provider Unavailabl e Reason for Visit * Reason Onset Date Comments Fitting for DME 11/26/2024 [employer] [facility] Encounter Details Date Type Department Care Team (Late st Contact Info) Description 11/26/2024 Telephone [facility] Pulmonary [address] [place] [address] Deo Breen MA Fitting for [...] Description 02/04/2025 3:30 PM EDT Ancillary Procedure [facility] 154 [address] [facility] [address] [place] [phone] 02/19/2025 3:40 PM EDT Office Visit Endocrinology - [address] [address] Lucille Clarke PA [address] [place] [address] 03/31/2025 3:15 PM EDT Office Visit [facility] Hematology Oncology [address] [place] [phone] Cullen Gibson MD [address] [place] [phone] 04/09/2025 3:40 PM EDT Appointment Radiology Department - [address] [phone] 04/23/2025 10:50 AM EDT Office Visit [facility] 154 300 [facility] [address] [place] [phone] Taya Gonzales MD [address] [place] [address] documented as of this encounter Visit Diagnoses Not on filedocumented in this encounter
--- OUTSIDE RECORDS SUMMARY | 2024-12-05 16:52 | XMS_ITS | Encounter Summary ---
Author Organization [facility] Address [address] [place] [address] Care Team Providers Care Solutions Developer Name Role Phone Taya Gonzales MD Unavailable [phone] Chandan Breen Unavailable Hawa Torres MD Primary Care Provider Unavaila Jessi Cagle DNP Unavailable [phone] Encounter Details Date Type Department Care Team Description 01/10/2024 [facility] Medical Records [address] [place] [address] Social History Tobacco Use Types Packs/Day Years [...] on filedocumented in this encounter Care Teams Solutions Developer Relationship Specialty Start Date End Date Hawa Torres MD PCP - General Internal Medicine 11/09/22 Taya Gonzales MD Specialist Cardiology 11/01/20 Chandan Breen PA Specialist Cardiology 11/01/20 02/20/24 Jessi Erwin DNP Specialist Nurse Practitioner Family 02/21/24 documented as of this encounter
--- OUTSIDE RECORDS SUMMARY | 2024-12-05 16:52 | XMS_ITS | Encounter Summary ---
Author Organization [facility] Address [address] [place] [address] Care Team Providers Care Technical Specialist Cytogenetics Name Role Phone Hawa Torres MD Primary Care Provider UnavailTaya Lira MD Unavailable [phone] Chandan Breen Unavailable Rancho Matthews MD Primary Care Provider + [facility], Pcp Primary Care Provider UnavailRancho Brock MD Primary Care Provider [phone] Hawa Torres MD Primary Care Provider Unavaila Hawa Maddox MD Primary Care Provider Unavaila elpidio [facility], Pcp Primary Care Provider UnavailHawa Barron MD Primary Care Provider Unavaila ble [facility], Pcp Primary Care Provider Hawa Zavala MD Primary Care Provider Unavaila ble Melonie Sorensen DO Primary Care Pro vider Unavailable [facility], Pcp Primary Care Provider Hawa Zavala MD Primary Care Provider Unavaila Jessi Cagle [facility] Unavailable + [phone] Reason for Visit * Reason Onset Date Comments other 11/09/2020 Pacemaker replac ement? Encounter Details Date Type Department Care Team Description 11/09/2020 Telephone Cardio PVC POC [address] [place], [place] [phone] Taya Gonzales MD [address] [place] [address] [phone] other (Pacemaker replacement?) Social History Tobacco Use [...] Dr. Lorin Mcclelland and phone # is [phone]. * Telephone Encounter - Dino Cano - [...] this surgery. Thanks. * Telephone Encounter - Ronajackei Austyn - 11/09/2020 9:55 AM EST 11/09/20 Patients daughter Madelin Victor calling states per pt oncology her pacemaker needs to be moved from onside to the other as patient is going to be starting treaments and the pacemaker is on the side the will start the treatment on. Please call Madelin at [phone] documented in this encounter Plan of Treatment Not on file documented as of this encounter Visit Diagnoses Not on filedocumented in this encounter Care Teams Technical Specialist Cytogenetics Relationship Specialty Start Date End Date Hawa Torres MD PCP - General Internal Medicine 09/09/15 12/19/20 Rancho Matthews MD [address] [place] [address] 27707 PCP - General Internal Medicine 12/20/20 03/22/21 [facility], Pcp [address] [place] [address] 37564 PCP - General Internal Medicine 03/23/21 04/11/21 Rancho Matthews MD [address] [place] [address] 92176 PCP - General Internal Medicine 04/12/21 04/12/21 Hawa Torres MD [address] [place] [address] 62729 PCP - General Internal Medicine 04/13/21 06/05/21 Hawa Torres MD [address] [place] [address] 03539 PCP - General Internal Medicine 06/06/21 08/07/21 [facility], Pcp [address] [place] [address] 30541 PCP - General Internal Medicine 08/08/21 10/27/21 Hawa Torres MD PCP - General Internal Medicine 10/28/21 04/11/22 [facility], Pcp [address] [place] [address] 95962 PCP - General Internal Medicine 04/12/22 05/01/22 Hawa Torres MD [address] [place] [address] 75549 PCP - General Internal Medicine 05/02/22 05/21/22 Melonie Sorensen DO [address] [place] [address] 10606 PCP - General Internal Medicine 05/22/22 09/07/22 [facility], Pcp [address] [place] [address] 80968 PCP - General Internal Medicine 09/08/22 11/08/22 Hawa Torres MD [address] [place] [address] 28055 PCP - General Internal Medicine 11/09/22 Taya Gonzales MD Specialist Cardiology 11/01/20 Chandan Breen PA Specialist Cardiology 11/01/20 02/20/24 Jessi Erwin DNP [address] [place] [address] Specialist Nurse Practitioner [facility] 02/21/24 documented as of this encounter
--- OUTSIDE RECORDS SUMMARY | 2024-12-05 16:52 | XMS_ITS | Encounter Summary ---
Author Organization [facility] Address [address] [place] [address] Care Team Providers Care Facing Baster Jumpbasting Name Role Phone Hawa Torres MD Primary Care Provider UnavailTaya Lira MD Unavailable [phone] Chandan Breen Unavailable + Rancho Matthews MD Primary Care Provider [phone] [facility], Pcp [...] Details Date Type Department Care Team Description 11/18/2020 Pt. Non Urgent Medical Question Cardio PVC POC 154 300 [facility] [address] [place] [address] Taya Gonzales MD [address] [place] [address] [phone] Social History Tobacco Use Types Packs/Day Years [...] on filedocumented in this encounter Care Teams Facing Baster Jumpbasting Relationship Specialty Start Date End Date Hawa Torres MD PCP - General Internal Medicine 09/09/15 12/19/20 Rancho Matthews MD [address] [place] [address] PCP - General Internal Medicine 12/20/20 03/22/21 [facility], [address] [address] PCP - General Internal Medicine 03/23/21 04/11/21 Rancho Matthews MD [address] [place] [address]407 PCP - General Internal Medicine 04/12/21 04/12/21 Hawa Torres MD [address] [place] [address] 95868 PCP - General Internal Medicine 04/13/21 06/05/21 Hawa Torres MD [address] [place] [address] 6[address]59 PCP - General Internal Medicine 06/06/21 08/07/21 [facility], [address] [address] PCP - General Internal Medicine 08/08/21 10/27/21 Hawa Torres MD PCP - General Internal Medicine 10/28/21 04/11/22 [facility], Pcp [address] [place] [address] 46407 PCP - General Internal Medicine 04/12/22 05/01/22 Hawa Torres MD [address] [place] [address] 28868 PCP - General Internal Medicine 05/02/22 05/21/22 Melonie Sorensen, [address] [place] [address] 44955 PCP - General Internal Medicine 05/22/22 09/07/22 [facility], Pcp [address] [place] [address] 32700 PCP - General Internal Medicine 09/08/22 11/08/22 Hawa Torres MD [address] [place] [address] 89966 PCP - General Internal Medicine 11/09/22 Tyaa Gonzales MD Specialist Cardiology 11/01/20 Chandan Breen PA Specialist Cardiology 11/01/20 02/20/24 Jessi Erwin DNP [address] [place] [address] Specialist Nurse Practitioner [facility] 02/21/24 documented as of this encounter
--- OUTSIDE RECORDS SUMMARY | 2024-12-05 16:52 | XMS_ITS | Encounter Summary ---
Author Organization [facility] Address [address] [place] [address] Care Team Providers Care Run Boat Operator Name Role Phone Hawa Torres MD Primary Care Provider Unavaila Taya Covington MD Unavailable [phone] Chandan Breen Unavailable Rancho Matthews MD Primary Care Provider [phone] [facility], [facility] Primary Care Provider UnavailRancho [...] MD Primary Care Provider Unavaila Jessi Cagle [facility] Unavailable [phone] Reason for Visit * Reason Comments Remote Device Check Device Alert / Thora cic Impdedance suggestive of fluid Encounter Details Date Type Department Care Team Description 11/23/2020 Remote Device Check Cardio PVC POC [address] [place] [address] Nikhil Sorenson MD [address] [place], [place] [phone] Social History Tobacco Use Types Packs/Day Years [...] on filedocumented in this encounter Care Teams Run Boat Operator Relationship Specialty Start Date End Date Hawa Torres MD PCP - General Internal Medicine 09/09/15 12/19/20 Rancho Matthews MD [address] [place] [address] PCP - General Internal Medicine 12/20/20 03/22/21 [facility], [address] [address] PCP - General Internal Medicine 03/23/21 04/11/21 Rancho Matthews MD [address] [place] [address] 61466 PCP - General Internal Medicine 04/12/21 04/12/21 Hawa Torres MD [address] [place] [address] 93339 PCP - General Internal Medicine 04/13/21 06/05/21 Hawa Torres MD [address] [place] [address] 71820 PCP - General Internal Medicine 06/06/21 08/07/21 [facility], Pcp [address] [place] [address] 43079 PCP - General Internal Medicine 08/08/21 10/27/21 Hawa Torres MD PCP - General Internal Medicine 10/28/21 04/11/22 [facility], Pcp [address] [place] [address] 08785 PCP - General Internal Medicine 04/12/22 05/01/22 Hawa Torres MD [address] [place] [address] 31969 PCP - General Internal Medicine 05/02/22 05/21/22 Melonie Sorensen, [address] [place] [address] 84927 PCP - General Internal Medicine 05/22/22 09/07/22 [facility], Pcp [address] [place] [address] 19414 PCP - General Internal Medicine 09/08/22 11/08/22 Hawa Torres MD [address] [place] [address] 15631 PCP - General Internal Medicine 11/09/22 Taya Gonzales MD Specialist Cardiology 11/01/20 Chandan Breen PA Specialist Cardiology 11/01/20 02/20/24 Jessi Erwin DNP [address] [place] [address] Specialist Nurse Practitioner [facility] 02/21/24 documented as of this encounter
--- OUTSIDE RECORDS SUMMARY | 2024-12-05 16:52 | XMS_ITS | Encounter Summary ---
Author Organization [facility] Address [address] [place] [address] Care Team Providers Care Provisioning Specialist Name Role Phone Taya Gonzales MD Unavailable [phone] Hawa Torres MD Primary Care Provider Unavaila Jessi Cagle DNP Unavailable [phone] Reason for Visit * Reason Onset Date Comments refill request 05/07/2024 Encounter Details Date Type Department Care Team Description 05/07/2024 Refill Endocrinology - [address] [address] Lucille Clarke PA-C [address] [place] [address] refill request Social History Tobacco Use Types [...] Miscellaneous Notes * Telephone Encounter - Laura Pierosn - 05/07/2024 1:32 PM EDT Lab Results [...] N/A Patients current insurance carrier is: Payor: [facility] FFS / Plan: [employer] MEDICARE ADVANTAGE $0/$20 / Product Type: MEDICARE [id number] documented in this encounter Plan of Treatment Not on file documented as of this encounter Visit Diagnoses Diagnosis Uncontrolled type 2 diabetes mellitus with hyperglycemia (HCC) documented in this encounter Care Teams Provisioning Specialist Relationship Specialty Start Date End Date Hawa Torres MD PCP - General Internal Medicine 11/09/22 Taya Gonzales MD Specialist Cardiology 11/01/20 Jessi Erwin DNP Specialist Nurse Practitioner Family 02/21/24 documented as of this encounter
--- OUTSIDE RECORDS SUMMARY | 2024-12-05 16:52 | XMS_ITS | Encounter Summary ---
Author Organization [facility] Address [address] [place] [address] Care Team Providers Care Fitter Up Name Role Phone Taya Gonzales MD Unavailable [phone] Hawa Torres MD Primary Care Provider Unavaila Jessi Cagle DNP Unavailable [phone] Reason for Visit * Reason Comments E-prescribe Rx Request Encounter Details Date Type Department Care Team Description 05/11/2024 Refill Endocrinology - [address] [address] Lucille Clarke PA-C [address] [place] [address] E-prescribe Rx Request Social History Tobacco Use [...] (HCC) documented in this encounter Care Teams Fitter Up Relationship Specialty Start Date End Date Hawa Torres MD PCP - General Internal Medicine 11/09/22 Taya Gonzales MD Specialist Cardiology 11/01/20 Jessi Erwin DNP Specialist Nurse Practitioner Family 02/21/24 documented as of this encounter
--- OUTSIDE RECORDS SUMMARY | 2024-12-05 16:52 | XMS_ITS | Encounter Summary ---
Author Organization [facility] Address [address] [place] [address] Care Team Providers Care Engine Oiler Name Role Phone Taya Gonzales MD Unavailable [phone] Chandan Breen Unavailable + Rancho Matthews MD Primary Care Provider [phone] [facility], Pcp Primary Care Provider UnavailRancho Brock MD Primary Care Provider +[phone] Hawa Torres MD Primary Care Provider Unavaila Hawa Maddox MD Primary Care Provider Unavaila ble [facility], Pcp Primary Care Provider UnavailHawa Barron MD Primary Care Provider Unavaila ble [facility], Pcp Primary Care Provider UnavailHawa Barron MD Primary Care Provider Unavaila ble Melonie Sorensen DO Primary Care Pro vider Unavailable [facility], Pcp Primary Care Provider UnavailHawa Barron MD Primary Care Provider Unavaila ble Jessi Erwin [facility] Unavailable [phone] Encounter Details Date Type Department Care Team Description 03/01/2021 Hospital Medical Records [address] [place] [address] Rey Alfredo MD Social History Tobacco Use [...] on filedocumented in this encounter Care Teams Engine Oiler Relationship Specialty Start Date End Date Rancho Matthews MD [address] [place] [address] PCP - General Internal Medicine 12/20/20 03/22/21 [facility], Pcp [address] [place] [address] PCP - General Internal Medicine 03/23/21 04/11/21 Rancho Matthews MD [address] [place] [address]21 PCP - General Internal Medicine 04/12/21 04/12/21 Hawa Torres MD [address] [place] [address] 56195 PCP - General Internal Medicine 04/13/21 06/05/21 Hawa Torres MD [address] [place] [address] 48453 PCP - General Internal Medicine 06/06/21 08/07/21 [facility], Pcp [address] [place] [address] 39744 PCP - General Internal Medicine 08/08/21 10/27/21 Hawa Torres MD [address] [place] [address] 33619 PCP - General Internal Medicine 10/28/21 04/11/22 [facility], Pcp [address] [place] [address] 49231 PCP - General Internal Medicine 04/12/22 05/01/22 Hawa Torres MD [address] [place] [address] 9[address]30 PCP - General Internal Medicine 05/02/22 05/21/22 Melonie Sorensen DO [address] [place] [address] 65496 PCP - General Internal Medicine 05/22/22 09/07/22 [facility], [address] [address] PCP - General Internal Medicine 09/08/22 11/08/22 Hawa Torres MD [address] [place] [address] 92292 PCP - General Internal Medicine 11/09/22 Taya Gonzales MD Specialist Cardiology 11/01/20 Chandan Breen PA Specialist Cardiology 11/01/20 02/20/24 Jessi Erwin DNP [address] [place] [address] Specialist Nurse Practitioner [facility] 02/21/24 documented as of this encounter
--- OUTSIDE RECORDS SUMMARY | 2024-12-05 16:52 | XMS_ITS | Encounter Summary ---
Author Organization [facility] Address [address] [place] [address] Care Team Providers Care Environmental Services Attendant Name Role Phone Hawa Torres MD Primary Care Provider Unavaila Taya Covington MD Unavailable [phone] Chandan Breen Unavailable Rancho Matthews MD Primary Care Provider +[phone] [facility], Pcp Primary Care Provider UnavailRancho Brock MD Primary Care Provider +[phone] Hawa Torres MD Primary Care Provider Unavaila Hawa Maddox MD Primary Care Provider Unavaila elpidio [facility], Pcp Primary Care Provider UnavailHawa Barron MD Primary Care Provider Unavaila ble [facility], Pcp Primary Care Provider Hawa Zavala MD Primary Care Provider Unavaila Melonie Rojas DO Primary Care Pro vider Unavailable [facility], Pcp Primary Care Provider Hawa Zavala MD Primary Care Provider Unavaila Jessi Cagle [facility] Unavailable [phone] Encounter Details Date Type Department Care Team Description 11/15/2020 Hospital Medical Records [address] [place] [address] Julio C Lawler MD [address] [place] [address] Social History Tobacco Use Types Packs/Day Years [...] on filedocumented in this encounter Care Teams Environmental Services Attendant Relationship Specialty Start Date End Date Hawa Torres MD PCP - General Internal Medicine 09/09/15 12/19/20 Rancho Matthews MD [address] [place] [address] PCP - General Internal Medicine 12/20/20 03/22/21 [facility], [address] [address] PCP - General Internal Medicine 03/23/21 04/11/21 Rancho Matthews MD [address] [place] [address] PCP - General Internal Medicine 04/12/21 04/12/21 Hawa Torres MD [address] [place] [address] 19229 PCP - General Internal Medicine 04/13/21 06/05/21 Hawa Torres MD [address] [place] [address] 9[address]47 PCP - General Internal Medicine 06/06/21 08/07/21 [facility], [place] [phone] PCP - General Internal Medicine 08/08/21 10/27/21 Hawa Torres MD PCP - General Internal Medicine 10/28/21 04/11/22 [facility], Pcp [address] [place] [address] 32450 PCP - General Internal Medicine 04/12/22 05/01/22 Hawa Torres MD [address] [place] [address] 74799 PCP - General Internal Medicine 05/02/22 05/21/22 Melonie Sorensen, [address] [place] [address] PCP - General Internal Medicine 05/22/22 09/07/22 [facility], Pcp [address] [place] [address] PCP - General Internal Medicine 09/08/22 11/08/22 Hawa Torres MD [address] [place] [address] 97369 PCP - General Internal Medicine 11/09/22 Taya Gonzales MD Specialist Cardiology 11/01/20 Chandan Breen PA Specialist Cardiology 11/01/20 02/20/24 Jessi Erwin, KITTY [address] [place] [address] Specialist Nurse Practitioner Family 02/21/24 documented as of this encounter
--- OUTSIDE RECORDS SUMMARY | 2024-12-05 16:52 | XMS_ITS | Encounter Summary ---
Author Organization [facility] Address [address] [place] [address] Care Team Providers Care Cerner Analyst Name Role Phone Hawa Torers MD Primary Care Provider Unavaila Taya Covington MD Unavailable [phone] Chandan Breen Unavailable + Rancoh Matthews MD Primary Care Provider [phone] [facility], [facility]cp Primary Care Provider UnavailRancho Brock MD Primary Care Provider [phone] Hawa Torres MD Primary Care Provider Unavaila [...] MD Primary Care Provider Unavaila Jessi Cagle [facility] Unavailable [phone] Reason for Visit * Reason Onset Date Comments hospital follow up 03/16/2016 [facility] Encounter Details Date Type Department Care Team Description 03/16/2016 Telephone Cardiology - [place] [address] [place] [address] [phone] Taya Gonzales MD [address] [place], [place] [phone] hospital follow up ([facility]) Social History Tobacco [...] 03/16/2016 11:17 AM EDT Calling to schedule [facility] f/u. Mid level ok and time frame please? Thank you documented in this encounter Plan of Treatment Not on file documented as of this encounter Visit Diagnoses Not on filedocumented in this encounter Care Teams Cerner Analyst Relationship Specialty Start Date End Date Hawa Torres MD PCP - General Internal Medicine 09/09/15 12/19/20 Rancho Matthews MD [address] [place] [address] PCP - General Internal Medicine 12/20/20 03/22/21 [facility], [address] [address] PCP - General Internal Medicine 03/23/21 04/11/21 Rancho Matthews MD [address] [place] [address]77 PCP - General Internal Medicine 04/12/21 04/12/21 Hawa Torres MD [address] [place] [address] 6[address] PCP - General Internal Medicine 04/13/21 06/05/21 Hawa Torres MD [address] [place] [address] 66802 PCP - General Internal Medicine 06/06/21 08/07/21 [facility], Pcp [address] [place] [address] 58536 PCP - General Internal Medicine 08/08/21 10/27/21 Hawa Torres MD PCP - General Internal Medicine 10/28/21 04/11/22 [facility], Pcp [address] [place] [address] PCP - General Internal Medicine 04/12/22 05/01/22 Hawa Torres MD [address] [place] [address] 86778 PCP - General Internal Medicine 05/02/22 05/21/22 Melonie Sorensen, DO [address] [place] [address] 48991 PCP - General Internal Medicine 05/22/22 09/07/22 [facility], Pcp [address] [place] [address]26 PCP - General Internal Medicine 09/08/22 11/08/22 Hawa Torres MD [address] [place] [address] 98337 PCP - General Internal Medicine 11/09/22 Taya Gonzales MD Specialist Cardiology 11/01/20 Chandan Breen PA Specialist Cardiology 11/01/20 02/20/24 Jessi Erwin DNP [address] [place] [address] Specialist Nurse Practitioner Family 02/21/24 documented as of this encounter
--- OUTSIDE RECORDS SUMMARY | 2024-12-05 16:52 | XMS_ITS | Encounter Summary ---
Author Organization [facility] Address [address] [place] [address] Care Team Providers Care Tire Mold Engraver Name Role Phone Hawa Torres MD Primary Care Provider Unavaila Taya Covington MD Unavailable [phone] Chandan Breen Unavailable + Rancho Matthews MD Primary Care Provider + [facility] Primary Care Provider UnavailRancho Brock MD Primary Care Provider [phone] Hawa Torres MD Primary Care Provider Unavaila Hawa Maddox MD Primary Care Provider Unavaila elpidio [facility], Pcp Primary Care Provider Hawa Zavala MD Primary Care Provider Unavaila ble [facility], Pcp Primary Care Provider Hawa Zavala MD Primary Care Provider Unavaila Melonie Rojas DO Primary Care Pro vider Unavailable [facility], Pcp Primary Care Provider Hawa Zavala MD Primary Care Provider Unavaila Jessi Cagle [facility] Unavailable + [phone] Encounter Details Date Type Department Care Team Description 12/24/2019 Pt. Non Urgent Medical Question Medicine/Pediatrics - [address] [phone] Hawa Torres MD Social History Tobacco Use [...] 5[facility] [address] [address] Thank you, Stay Healthy! documented in this encounter Plan of Treatment Not on file documented as of this encounter Visit Diagnoses Not on filedocumented in this encounter Care Teams Tire Mold Engraver Relationship Specialty Start Date End Date Hwaa Torres MD PCP - General Internal Medicine 09/09/15 12/19/20 Rancho Matthews MD [address] [place] [address] PCP - General Internal Medicine 12/20/20 03/22/[address] [address] PCP - General Internal Medicine 03/23/21 04/11/21 Rancho Matthews MD [address] [place] [address] PCP - General Internal Medicine 04/12/21 04/12/21 Hawa Torres MD [address] [place] [address] 279[address] PCP - General Internal Medicine 04/13/21 06/05/21 Hawa Torres MD [address] [place] [address] 23195 PCP - General Internal Medicine 06/06/21 08/07/21 [facility], Pcp [address] [place] [address] PCP - General Internal Medicine 08/08/21 10/27/21 Hawa Torres MD PCP - General Internal Medicine 10/28/21 04/11/22 [facility], Pcp [address] [place] [address] PCP - General Internal Medicine 04/12/22 05/01/22 Hawa Torres MD [address] [place] [address] PCP - General Internal Medicine 05/02/22 05/21/22 Melonie Sorensen DO [address] [place] [address] PCP - General Internal Medicine 05/22/22 09/07/22 [facility], Pcp [address] [place] [address] 15385 PCP - General Internal Medicine 09/08/22 11/08/22 Hawa Torres MD [address] [place] [address] PCP - General Internal Medicine 11/09/22 Taya Gonzales MD Specialist Cardiology 11/01/20 Chandan Breen PA Specialist Cardiology 11/01/20 02/20/24 Jessi Erwin DNP [address] [place] [address] Specialist Nurse Practitioner Family 02/21/24 documented as of this encounter
--- OUTSIDE RECORDS SUMMARY | 2024-12-05 16:52 | XMS_ITS | Encounter Summary ---
Author Organization [facility] Address [address] [place] [address] Care Team Providers Care Power Plant Engineer Name Role Phone Hawa Torres MD Primary Care Provider UnavailTaya Lira MD Unavailable +[phone] Chandan Breen Unavailable Rancho Matthews MD Primary Care Provider +[phone] [facility] Primary Care Provider [...] Jessi Cagle [facility] Unavailable [phone] Encounter Details Date Type Department Care Team Description 03/14/2016 Hospital Medical Records [address] [place] [address] Social History Tobacco Use Types Packs/Day Years [...] on filedocumented in this encounter Care Teams Power Plant Engineer Relationship Specialty Start Date End Date Hawa Torres MD PCP - General Internal Medicine 09/09/15 12/19/20 Rancho Matthews MD [address] [place] [address] PCP - General Internal Medicine 12/20/20 03/22/21 [facility] Pcp [address] [place] [address] PCP - General Internal Medicine 03/23/21 04/11/21 Rancho Matthews MD [address] [place] [address] PCP - General Internal Medicine 04/12/21 04/12/21 Hawa Torres MD [address] [place] [address] 78329 PCP - General Internal Medicine 04/13/21 06/05/21 Hawa Torres MD [address] [place] [address] 44152 PCP - General Internal Medicine 06/06/21 08/07/21 [facility], Pcp [address] [place] [address] 39485 PCP - General Internal Medicine 08/08/21 10/27/21 Hawa Torres MD PCP - General Internal Medicine 10/28/21 04/11/22 [facility], Pcp [address] [place] [address] 19847 PCP - General Internal Medicine 04/12/22 05/01/22 Hawa Torres MD [address] [place] [address] 39745 PCP - General Internal Medicine 05/02/22 05/21/22 Melonie Sorensen DO [address] [place] [address] 78956 PCP - General Internal Medicine 05/22/22 09/07/22 [facility], Pcp [address] [place] [address] 45750 PCP - General Internal Medicine 09/08/22 11/08/22 Hawa Torres MD [address] [place] [address] 19339 PCP - General Internal Medicine 11/09/22 Taya Gonzales MD Specialist Cardiology 11/01/20 Chandan Breen PA Specialist Cardiology 11/01/20 02/20/24 Jessi Erwin, KITTY [address] [place] [address] Specialist Nurse Practitioner Family 02/21/24 documented as of this encounter
--- OUTSIDE RECORDS SUMMARY | 2024-12-05 16:52 | XMS_ITS | Encounter Summary ---
Author Organization [facility] Address [address] [place] [address] Care Team Providers Care Wood Miller Name Role Phone Taya Gonzales MD Unavailable [phone] Chandan Breen Unavailable Rancho Matthews MD Primary Care Provider [phone] [facility], Pcp Primary Care Provider UnavailRancho Brock MD Primary Care Provider [phone] Hawa Torres MD Primary Care Provider Unavaila Hawa Maddox MD Primary Care Provider Unavaila ble [facility], Pcp Primary Care Provider UnavailHawa Barron MD Primary Care Provider Unavaila ble [facility], Pcp Primary Care Provider UnavailHawa Barron MD Primary Care Provider Unavaila ble Melonie Sorensen DO Primary Care Pro vider Unavailable [facility], Pcp Primary Care Provider UnavailHawa Barron MD Primary Care Provider Unavaila ble Jessi Erwin [place] Unavailable [phone] Encounter Details Date Type Department Care Team Description 02/11/2021 Refill Adult Medicine [address] [phone] Rancho Matthews MD [address] [place] [address] [phone] Social History Tobacco Use Types Packs/Day Years [...] filedocumented in this encounter Care Teams Wood Miller Relationship Specialty Start Date End Date Rancho Matthews MD [address] [place] [address]138 PCP - General Internal Medicine 12/20/20 03/22/21 [facility], Pcp [address] [place] [address]22 PCP - General Internal Medicine 03/23/21 04/11/21 Rancho Matthews MD [address] [place] [address] 35171 PCP - General Internal Medicine 04/12/21 04/12/21 Hawa Torres MD [address] [place] [address] 45071 PCP - General Internal Medicine 04/13/21 06/05/21 Hawa Torres MD [address] [place] [address] 49705 PCP - General Internal Medicine 06/06/21 08/07/21 [facility], Pcp [address] [place] [address] 49248 PCP - General Internal Medicine 08/08/21 10/27/21 Hawa Torres MD [address] [place] [address] 16779 PCP - General Internal Medicine 10/28/21 04/11/22 [facility], Pcp [address] [place] [address] 18852 PCP - General Internal Medicine 04/12/22 05/01/22 Hawa Torres MD [address] [place] [address] 26886 PCP - General Internal Medicine 05/02/22 05/21/22 Melonie Sorensen, [address] [place] [address] 55190 PCP - General Internal Medicine 05/22/22 09/07/22 [facility], Pcp [address] [place] [address] 77557 PCP - General Internal Medicine 09/08/22 11/08/22 Hawa Torres MD [address] [place] [address] 99479 PCP - General Internal Medicine 11/09/22 Taya Gonzales MD Specialist Cardiology 11/01/20 Chandan Breen PA Specialist Cardiology 11/01/20 02/20/24 Jessi Erwin, KITTY [address] [place] [address]99 Specialist Nurse Practitioner Family 02/21/24 documented as of this encounter
--- OUTSIDE RECORDS SUMMARY | 2024-12-05 16:52 | XMS_ITS | Encounter Summary ---
Author Organization [facility] Address [address] [place] [address] Care Team Providers Care Travel Manager Name Role Phone Taya Gonzales MD Unavailable [phone] Chandan Breen Unavailable Rancho Matthews MD Primary Care Provider [phone] [facility], Pcp Primary Care Provider UnavailRancho Brock MD Primary Care Provider [phone] Hawa Torres MD Primary Care Provider Unavaila Hawa Maddox MD Primary Care Provider Unavaila ble [place] [...] Primary Care Provider Unavaila ble Jessi Erwin [facility] Unavailable [phone] Encounter Details Date Type Department Care Team Description 03/01/2021 Pt. Non Urgent Medical Question Pulmonology - [place] [address] [place] [address] Marcela Gunter FNP [address] [place] [address] Social History Tobacco Use Types [...] Update Ary, My mom has been at [facility] since 02/25/21. We arrived at the ER and eventually admitted due to retaining excess water, which was also causing fluid build up in her lungs. As of today, 03/01 mom is still at [facility] and making small strides toward breathing without a bipap machine due to 96 Co2 levels. My intention for contacting you is to prepare to eventually have her back home. Since she has chronic conditions that would benefit from sitting and sleeping upright, I wanted to request that you and/or her medical team complete a [facility] Prior Authorization form that will help aide us in obtaining the appropriate bed for her. See link for form: [email or web address]/doc/[email or web address]/download Her Medical team at [place] is Dr. Oneida Hernandez, Dr. Alfredo and Dr. Porras. Please let me know if you need additional information. Thank you for all you do. documented in this encounter Plan of Treatment Not on file documented as of this encounter Visit Diagnoses Not on filedocumented in this encounter Care Teams Travel Manager Relationship Specialty Start Date End Date Rancho Matthews MD [address] [place] [address], [place] [address] PCP - General Internal Medicine 12/20/20 03/22/21 [facility], Pcp [address] [place] [address], [place] [address] PCP - General Internal Medicine 03/23/21 04/11/21 Rancho Matthews MD [address] [place] [address], [place] [address] PCP - General Internal Medicine 04/12/21 04/12/21 Hawa Torres MD [address] [place] [address], [place] [address] PCP - General Internal Medicine 04/13/21 06/05/21 Hawa Torres MD [address] [place] [address], [place] [address] PCP - General Internal Medicine 06/06/21 08/07/21 [facility], Pcp [address] [place] [address], [place] [address] PCP - General Internal Medicine 08/08/21 10/27/21 Hawa Torres MD [address] [place] [address], [place] [address] PCP - General Internal Medicine 10/28/21 04/11/22 [facility], Pcp [address] [place] [address], [place] [address] PCP - General Internal Medicine 04/12/22 05/01/22 Hawa Torres MD [address] [place] [address], [place] [address] PCP - General Internal Medicine 05/02/22 05/21/22 Melonie Sorensen, [address] [place] [address], [place] [address] PCP - General Internal Medicine 05/22/22 09/07/22 [facility], Pcp [address] [place] [address], [place] [address] PCP - General Internal Medicine 09/08/22 11/08/22 Hawa Torres MD [address] [place] [address] PCP - General Internal Medicine 11/09/22 Taya Gonzales MD Specialist Cardiology 11/01/20 Chandan Breen PA Specialist Cardiology 11/01/20 02/20/24 Jessi Erwin, [address] [address] Specialist Nurse Practitioner Family 02/21/24 documented as of this encounter
--- OUTSIDE RECORDS SUMMARY | 2024-12-05 16:52 | XMS_ITS | Encounter Summary ---
Author Organization [facility] Address [address] [place] [address] Care Team Providers Care Fisheries Specialist Name Role Phone Taya Gonzales MD Unavailable [phone] Chandan Breen Unavailable Melonie Sorensen DO Primary Care Pro vider Unavailable [facility], Pcp Primary Care Provider UnavailHawa Barron MD Primary Care Provider UnavailJessi Hogan DNP Unavailable [phone] Reason for Visit * Reason Onset Date Comments Appointment Cancelled 08/28/2022 Encounter Details Date Type Department Care Team Description 08/28/2022 Telephone Nephrology - [address] [phone] Mc Barragan MD [address] [place] [address] Appointment Cancelled Social History Tobacco Use Types [...] hospitalized since . She was transferred from [facility] to [facility] and placed on dialysis documented in this encounter Plan of Treatment Not on file documented as of this encounter Visit Diagnoses Not on filedocumented in this encounter Care Teams Fisheries Specialist Relationship Specialty Start Date End Date Melonie Sorensen DO PCP - General Internal Medicine 05/22/22 09/07/22 [facility], Pcp PCP - General Internal Medicine 09/08/22 11/08/22 Hawa Torres MD PCP - General Internal Medicine 11/09/22 Taya Gonzales MD Specialist Cardiology 11/01/20 Chandan Breen PA Specialist Cardiology 11/01/20 02/20/24 Jessi Erwin DNP Specialist Nurse Practitioner Family 02/21/24 documented as of this encounter
--- OUTSIDE RECORDS SUMMARY | 2024-12-05 16:52 | XMS_ITS | Encounter Summary ---
Author Organization [facility] Address [address] [place] [address] Care Team Providers Care Plant Science Professor Name Role Phone Taya Gonzales MD Unavailable [phone] Chandan Breen Unavailable Melonie Sorensen DO Primary Care Pro vider Unavailable [facility], Pcp Primary Care Provider UnavailHawa Barron MD Primary Care Provider UnavailJessi Hogan DNP Unavailable [phone] Reason for Visit * Reason Onset Date Comments APPOINTMENT 08/30/2022 Encounter Details Date Type Department Care Team Description 08/30/2022 Telephone Cardio PVC POC [address] [place] [address] Nikhil Sorenson MD [address] [place] [address] [phone] APPOINTMENT Social History Tobacco Use Types Packs/Day [...] office device check. Please call and schedule. Ethiopian speaking. documented in this encounter Plan of Treatment Not on file documented as of this encounter Visit Diagnoses Not on filedocumented in this encounter Care Teams Plant Science Professor Relationship Specialty Start Date End Date Melonie Sorensen DO PCP - General Internal Medicine 05/22/22 09/07/22 [facility], Pcp PCP - General Internal Medicine 09/08/22 11/08/22 Hawa Torres MD PCP - General Internal Medicine 11/09/22 Taya Gonzales MD Specialist Cardiology 11/01/20 Chandan Breen PA Specialist Cardiology 11/01/20 02/20/24 Jessi Erwin DNP Specialist Nurse Practitioner Family 02/21/24 documented as of this encounter
--- OUTSIDE RECORDS SUMMARY | 2024-12-05 16:52 | XMS_ITS | Encounter Summary ---
Author Organization [facility] Address [address] [place] [address] Care Team Providers Care Property Officer Name Role Phone Unavailable Primary Care Provider Unavailabl e Encounter Details Date Type Department Care Team (Late Contact Info) Description 11/16/2024 7:25 PM EST Ancillary Procedure [facility] Cardiology [facility] [address] [phone] Social History Tobacco Use Types Packs/Day Years [...] 02/04/2025 3:30 PM EDT Ancillary Procedure [facility] Cardiology [facility] 154 300 [facility] 154 [place] [address] 02/19/2025 3:40 PM EDT Office Visit Endocrinology - [place] [address] [place] [phone] Lucille Clarke PA [address] [place] [address] 03/31/2025 3:15 PM EDT Office Visit [facility] Hematology Oncology [address] [place] [phone] Cullen Gibson MD [address] [place] [phone] 04/09/2025 3:40 PM EDT Appointment Radiology Department - [address] [address] 04/23/2025 10:50 AM EDT Office Visit [facility] [address] 300 [facility] 154 [place] [phone] Taya Gonzales MD [address] [place] [address] documented as of this encounter Procedures Procedure Name Priority Date/Time Associated Diagnosis Comments CARDIAC DEVICE CHECK- REMOTE- MURJ Routine 11/16/2024 7:22 PM EST documented in this encounter Results * Cardiac device check - Remote- MURJ (11/16/2024 7:22 PM EST) Date Time Interrogation Session [id number] CV DEVICE CHECK Type Interrogation Session Remote Scheduled CV DEVICE CHECK Implantable Pulse Generator Chimney Repairer [employer] CV DEVICE CHECK Implantable Pulse Generator Type ONLINE MARKETING MANAGER-D CV DEVICE CHECK Implantable Pulse Generator Model [id number] [facility]() CV DEVICE CHECK Implantable Pulse Generator Serial Number [id number] CV DEVICE CHECK Implantable Pulse Generator Implant Date 20240110 CV DEVICE CHECK Battery Remaining Percentage 82.00 CV DEVICE CHECK Battery Remaining Longevity 53.0 CV DEVICE CHECK Battery Voltage 3.010 CV D EVICE CHECK Battery AUTOMATIC PRINT DEVELOPER Trigger 2.590 CV DEVICE CHECK Battery Status Middle of Service CV DEVICE CHECK Capacitor Charge Time 8.000 CV DEVICE CHECK Antione Statistic RA Percent Paced 41.00 CV DEVICE CHECK Antione Statistic RV Percent Paced 100.00 CV DEVICE CHECK ONLINE MARKETING MANAGER Statistic ONLINE MARKETING MANAGER Percent Paced 99.00 CV DEVICE CHECK Atrial Tachy Statistic AT/AF [place] Percent 0.00 CV DEVICE CHECK Lead Channel [...] CV DEVICE CHECK Ventricular chambers paced during ONLINE MARKETING MANAGER pacing. BiV CV DEVICE CHECK Antione Setting Lower Rate Limit 60 CV DEVICE CHECK Antione Setting AT Mode Switch Rate 180 CV DEVICE CHECK Antione Setting Maximum Tracking Rate 110 CV DEVICE CHECK Antione Setting Maximum Sensor Rate 110 CV DEVICE CHECK Antione Setting PAV Delay 150 CV DEVICE CHECK Antione Setting JAGJIT Delay 130 CV DEVICE CHECK ONLINE MARKETING MANAGER LV-RV Delay 40 CV D EVICE CHECK [...]
--- OUTSIDE RECORDS SUMMARY | 2024-12-05 16:52 | XMS_ITS | Encounter Summary ---
Author Organization [facility] Address [address] [place] [address] Care Team Providers Care Vacuum System Tester Name Role Phone Hawa Torres MD Primary Care Provider UnavailTaya Lira MD Unavailable [phone] Chandan Breen Unavailable + Rancho Matthews MD Primary Care Provider + [facility], Pcp Primary [...] Care Pro vider Unavailable [facility], Pcp Primary Care Provider Hawa Zavala MD Primary Care Provider Unavaila Jessi Cagel [facility] Unavailable [phone] Encounter Details Date Type Department Care Team Description 12/17/2020 Refill Medicine/Pediatrics - [address] [phone] Karissa Murcia MD Social History Tobacco Use [...] on filedocumented in this encounter Care Teams Vacuum System Tester Relationship Specialty Start Date End Date Hawa Torres MD PCP - General Internal Medicine 09/09/15 12/19/20 Rancho Matthews MD [address] [place] [address] PCP - General Internal Medicine 12/20/20 03/22/21 [facility], Pcp [address] [place] [address] PCP - General Internal Medicine 03/23/21 04/11/21 Rancho Matthews MD [address] [place] [address] PCP - General Internal Medicine 04/12/21 04/12/21 Hawa Torres MD [address] [place] [address] PCP - General Internal Medicine 04/13/21 06/05/21 Hawa Torres MD [address] [place] [address] PCP - General Internal Medicine 06/06/21 08/07/21 [facility], Pcp [address] [place] [address] PCP - General Internal Medicine 08/08/21 10/27/21 Hawa Torres MD PCP - General Internal Medicine 10/28/21 04/11/22 [facility], Pcp [address] [place] [address] PCP - General Internal Medicine 04/12/22 05/01/22 Hawa Torres MD [address] [place] [address] PCP - General Internal Medicine 05/02/22 05/21/22 Melonie Sorensen, [address] [place] [address] PCP - General Internal Medicine 05/22/22 09/07/22 [facility], Pcp [address] [place] [address] PCP - General Internal Medicine 09/08/22 11/08/22 Hawa Torres MD [address] [place] [address] PCP - General Internal Medicine 11/09/22 Taya Gonzales MD Specialist Cardiology 11/01/20 Chandan Breen PA Specialist Cardiology 11/01/20 02/20/24 Jessi Erwin, KITTY [address] [place] [address] Specialist Nurse Practitioner Family 02/21/24 documented as of this encounter
--- OUTSIDE RECORDS SUMMARY | 2024-12-05 16:52 | XMS_ITS | Encounter Summary ---
Author Organization [facility] Address [address] [place] [address] Care Team Providers Care Scow Hand Name Role Phone Hawa Torres MD [...] Zavala MD Primary Care Provider Unavaila ble [facility], Pcp Primary Care Provider Hawa Zavala MD Primary Care Provider Unavaila Melonie Rojas DO Primary Care Pro vider Unavailable [facility], Pcp Primary Care Provider Hawa Zavala MD Primary Care Provider Unavaila Jessi Cagle [facility] [place] Unavailable [phone] Encounter Details Date Type Department Care Team Description 11/25/2020 Telephone Cardio PVCA Diag Testing 101 300 [facility] [address] [place] [address] Julia Marcos, ANTONINO 300 [facility] 154 [place] [address] Social History Tobacco Use Types [...] with daughter - pt currently inpatient at [facility] with PE. Reported that patient will require left sided breast radiation - some question of device repositioning - I will reach out to Dr Mcclelland documented in this encounter Plan of Treatment Not on file documented as of this encounter Visit Diagnoses Not on filedocumented in this encounter Care Teams Scow Hand Relationship Specialty Start Date End Date Hawa Torres MD PCP - General Internal Medicine 09/09/15 12/19/20 Rancho Matthews MD [address] [place] [address] PCP - General Internal Medicine 12/20/20 03/22/21 [facility], [address] [address] PCP - General Internal Medicine 03/23/21 04/11/21 Rancho Matthews MD [address] [place] [address] PCP - General Internal Medicine 04/12/21 04/12/21 Hawa Torres MD [address] [place] [address] PCP - General Internal Medicine 04/13/21 06/05/21 Hawa Torres MD [address] [place] [address] PCP - General Internal Medicine 06/06/21 08/07/21 [facility], Pcp [address] [place] [address] PCP - General Internal Medicine 08/08/21 10/27/21 Hawa Torres MD PCP - General Internal Medicine 10/28/21 04/11/22 [facility], Pcp [address] [place] [address] PCP - General Internal Medicine 04/12/22 05/01/22 Hawa Torres MD [address] [place] [address] PCP - General Internal Medicine 05/02/22 05/21/22 Melonie Sorensen, DO [address] [place] [address] PCP - General Internal Medicine 05/22/22 09/07/22 [facility], Pcp [address] [place] [address] PCP - General Internal Medicine 09/08/22 11/08/22 Hawa Torres MD [address] [place] [address] PCP - General Internal Medicine 11/09/22 Taya Gonzales MD Specialist Cardiology 11/01/20 Chandan Breen PA Specialist Cardiology 11/01/20 02/20/24 Jessi Erwin DNP [address] [place] [address] Specialist Nurse Practitioner [facility] 02/21/24 documented as of this encounter
--- OUTSIDE RECORDS SUMMARY | 2024-12-05 16:52 | XMS_ITS | Encounter Summary ---
Author Organization [facility] Address [address] [place] [phone] Phone Care Team Providers Care Seo Engineer Name Role Phone Unavailable Primary Care Provider Unavailabl e Encounter Details Date Type Department Care Team (Late st Contact Info) Description 11/10/2024 Treatment [facility] [address] [address] Aldo Rice MD [address] [address] Social History Tobacco Use Types [...] care for end stage renal disease. Attending Land Surveying Manager: ALDO RICE MD Dialysis Location: [facility] Schedule: Shift: 1 HOME [...]
--- OUTSIDE RECORDS SUMMARY | 2024-12-05 16:52 | XMS_ITS | Encounter Summary ---
Author Organization [facility] Address [address] [place] [address] Care Team Providers Care Mass Communications Professor Name Role Phone Taya Gonzales MD Unavailable [phone] Chandan Breen Unavailable + Rancho Matthews MD Primary Care Provider [phone] [facility], Pcp Primary Care Provider UnavailRancho Brock MD Primary Care Provider [phone] Hawa Torres MD Primary Care Provider Unavaila Hawa Maddox MD Primary Care Provider Unavaila ble [facility], Pcp Primary Care Provider UnavailHawa Barron MD Primary Care Provider Unavaila ble [facility], Pcp Primary Care Provider UnavailHawa Barron MD Primary Care Provider Unavaila ble Melonie Sorensen DO Primary Care Pro vider Unavailable [facility], Pcp Primary Care Provider UnavailHawa Barron MD Primary Care Provider Unavaila ble Jessi Erwin [facility] Unavailable [phone] Reason for Visit * Reason Comments E-prescribe Rx Request carvedilol Encounter Details Date Type Department Care Team Description 02/18/2021 Refill Cardio PVC POC [address] [facility] [address] [place] [address] Taya Gonzales MD [address] [place] [address] [phone] E-prescribe Rx Request (carvedilol) Social History Tobacco [...] encounter Miscellaneous Notes * Telephone Encounter - Ashleihg Givens - 02/18/2021 4:41 PM EDT Carvedilol 12.5 mg 2 tabs po bid #112 tabs 1 rf sent electronically. Confirmed Cymraes states take 12.5 mg 2 tabs po bid. documented in this encounter Plan of Treatment Not on file documented as of this encounter Visit Diagnoses Not on filedocumented in this encounter Care Teams Mass Communications Professor Relationship Specialty Start Date End Date Rancho Matthews MD [address] [place] [address] PCP - General Internal Medicine 12/20/20 03/22/21 [facility], Pcp [address] [place] [address] PCP - General Internal Medicine 03/23/21 04/11/21 Rancho Matthews MD [address] [place] [address] PCP - General Internal Medicine 04/12/21 04/12/21 Hawa Torres MD [address] [place] [address] PCP - General Internal Medicine 04/13/21 06/05/21 Hawa Torres MD [address] [place] [address] PCP - General Internal Medicine 06/06/21 08/07/21 [facility], Pcp [address] [place] [address]19 PCP - General Internal Medicine 08/08/21 10/27/21 Hawa Torres MD [address] [place] [address]679 PCP - General Internal Medicine 10/28/21 04/11/22 [facility], Pcp [address] [place] [address]61 PCP - General Internal Medicine 04/12/22 05/01/22 Hawa Torres MD [address] [place] [address] PCP - General Internal Medicine 05/02/22 05/21/22 Melonie Sorensen, DO [address] [place] [address] PCP - General Internal Medicine 05/22/22 09/07/22 [facility], Pcp [address] [place] [address] PCP - General Internal Medicine 09/08/22 11/08/22 Hawa Torres MD [address] [place] [address] PCP - General Internal Medicine 11/09/22 Taya Gonzales MD Specialist Cardiology 11/01/20 Chandan Breen PA Specialist Cardiology 11/01/20 02/20/24 Jessi Erwin DNP [address] [place] [address] Specialist Nurse Practitioner [facility] 02/21/24 documented as of this encounter
--- OUTSIDE RECORDS SUMMARY | 2024-12-05 16:52 | XMS_ITS | Encounter Summary ---
Author Organization [facility] Address [address] [place] [address] Care Team Providers Care Graves Registration Specialist Name Role Phone Taya Gonzales MD Unavailable [phone] Chandan Breen Unavailable Hawa Torres MD Primary Care Provider Unavaila Jessi Cagle DNP Unavailable [phone] Reason for Visit * Reason Onset Date Comments Hospital Procedure 11/07/2023 ICD Biv Batte ry Change 4.5.24 Encounter Details Date Type Department Care Team Description 11/07/2023 Telephone Cardio PVC POC 154 300 [facility] 154 [place] [address] Kaz Salgado MD 300 [facility] 154 [place], [place] [phone] Hospital Procedure (ICD Biv Battery Change 4.5.24) Social History Tobacco Use Types Packs/Day Years [...] encounter Miscellaneous Notes * Telephone Encounter - Marissa Breen C.M.A. - 12/21/2023 3:38 PM EDT R/S her battery change to 01/10/24 at 9am at [facility] daughter r/s * Telephone Encounter - Marissa Breen C.M.A. - 12/06/2023 2:03 PM EDT Booking confirmation is [id number] via phone with Virginie * Telephone Encounter - Marissa Breen C.M.A. - 12/06/2023 1:57 PM EDT Spoke with patients daughter Madelin and I let her know that there has been a change in the scheduling of patients procedure. Due to unforeseen circumstances, Dr. Salgado is unable to perform patients procedure as originally planned the day of 12/20/23. I let her know I am actively working to reschedule her procedure to 12/28/23 at 11am arrival time at [facility] - [address] [place] [address] 3rd Floor relayed that patients health and well-being remain our top priority, and we are committed to ensuring aseamless transition to an alternative arrangement.Thanked her for understanding and patience of this unexpected change and apologized for any inconvenience it may caused. She agreed and understood changes and confirmed new date and time. * Telephone Encounter - Joanie Henriquez - 12/04/2023 9:30 AM EDT Per HERMAN at [facility] [place] [id number] Ref # [id number] * Telephone Encounter - Joanie Henriquez - 11/20/2023 12:03 PM EST Pending with insurance * Telephone Encounter - Marissa Breen C.M.A. - 11/14/2023 9:55 AM EST ICD Biv Battery change 57414 Dx SARA Z45.010 w/ SR at [facility] on 12.20.23 * Telephone Encounter - Marissa Breen C.M.A. - 11/14/2023 9:52 AM EST Spoke with patient about procedure. Scheduled on 12.20.[address] Salgado at [facility] at 12pm Mailing packet to patient today Packet mailed to patient includes instructions with medications, follow-up, lab orders, pre/post procedural care and pamphlet for procedure. Confirmed address on file Arrival time 10am Bloodwork to be done week of 12.10.23 at any lab of choice (Labs are not fasting) Medication instructions are to hold: HUMALOG morning of procedure. Will follow up with aspirin if need holding You can take all other medications with some water These instructions are given verbal and written and understood Patient will have to be fasting from midnight night before procedure. Patient made aware that they will need to make arrangements for someone to drive to and from the hospital for the procedure Patient is to report to [facility] Entrance then to the 1st floor patient registration Patient agreed to all inst and date, time and location above via phone while booking procedure. 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
--- OUTSIDE RECORDS SUMMARY | 2024-12-05 16:52 | XMS_ITS | Encounter Summary ---
Author Organization [facility] Address [address] [place] [address] Care Team Providers Care Bobj Developer Name Role Phone Taya Gonzales MD Unavailable [phone] Chandan Breen Unavailable Hawa Torres MD Primary Care Provider Unavaila Jessi Cagle DNP Unavailable Encounter Details Date Type Department Care Team Description 12/07/2023 CGM Report Medical Records [address] [place] [phone] Abstract, Provider Social History Tobacco Use Types [...] on filedocumented in this encounter Care Teams Bobj Developer Relationship Specialty Start Date End Date Hawa Torres MD PCP - General Internal Medicine 11/09/22 Taya Gonzales MD Specialist Cardiology 11/01/20 Chandan Breen PA Specialist Cardiology 11/01/20 02/20/24 Jessi Erwin DNP Specialist Nurse Practitioner Family 02/21/24 documented as of this encounter
--- OUTSIDE RECORDS SUMMARY | 2024-12-05 16:52 | XMS_ITS | Encounter Summary ---
Author Organization [facility] Address [address] [place] [address] Care Team Providers Care Twist Packer Name Role Phone Hawa Torres MD Primary Care Provider Unavaila Taya Covington MD Unavailable [phone] Chandan Breen Unavailable Rancho Matthews MD Primary Care Provider [phone] On License Of [facility], Pcp [...] MD Primary Care Provider Unavaila Jessi Cagle [facility] Unavailable [phone] Encounter Details Date Type Department Care Team Description 08/18/2019 Incoming Correspondence Medical Records [address] [place], [place] [id number] [place] [address] Social History Tobacco Use Types Packs/Day Years [...] on filedocumented in this encounter Care Teams Twist Packer Relationship Specialty Start Date End Date Hawa Torres MD PCP - General Internal Medicine 09/09/15 12/19/20 Rancho Matthews MD [address] [place] [address] PCP - General Internal Medicine 12/20/20 03/22/21 On License Of [facility], Pcp [address] [place] [address] PCP - General Internal Medicine 03/23/21 04/11/21 Rancho Matthews MD [address] [place] [address] PCP - General Internal Medicine 04/12/21 04/12/21 Hawa Torres MD [address] [place] [address] PCP - General Internal Medicine 04/13/21 06/05/21 Hawa Torres MD [address] [place] [address] PCP - General Internal Medicine 06/06/21 08/07/21 On License Of [facility], Pcp [address] [place] [address] PCP - General Internal Medicine 08/08/21 10/27/21 Hawa Torres MD PCP - General Internal Medicine 10/28/21 04/11/22 On License Of [facility], Pcp [address] [place] [address]80 PCP - General Internal Medicine 04/12/22 05/01/22 Hawa Torres MD [address] [place] [address]11 PCP - General Internal Medicine 05/02/22 05/21/22 Melonie Sorensen DO [address] [place] [address] PCP - General Internal Medicine 05/22/22 09/07/22 On License Of [facility], Pcp [address] [place] [address]61 PCP - General Internal Medicine 09/08/22 11/08/22 Hawa Torres MD [address] [place], [place] [phone] PCP - General Internal Medicine 11/09/22 Taya Gonzales MD Specialist Cardiology 11/01/20 Chandan Breen PA Specialist Cardiology 11/01/20 02/20/24 Jessi Erwin, KITTY [address] [place] [address] Specialist Nurse Practitioner [facility] 02/21/24 documented as of this encounter
--- OUTSIDE RECORDS SUMMARY | 2024-12-05 16:52 | XMS_ITS | Encounter Summary ---
Author Organization [facility] Address [address] [place] [address] Care Team Providers Care Professor Of Poultry Science Name Role Phone Hawa Torres MD Primary Care Provider Unavaila Taya Covington MD Unavailable [phone] Chandan Breen Unavailable Rancho Matthews MD Primary Care Provider [phone] [facility], Pcp Primary Care Provider UnavailRancho Brock MD [...] Jessi Cagle [facility] Unavailable [phone] Encounter Details Date Type Department Care Team Description 11/15/2020 SCAN Medical Records [address] [place] [address] Julio C Lawler MD [address] [place] [address] Social History Tobacco Use Types Packs/Day Years [...] Date/Time Associated Diagnosis Comments OUTSIDE EKG Routine 11/15/2020 documented in this encounter Results * OUTSIDE EKG (11/15/2020) Provider Abstract CARDIOLOGY documented in this encounter Visit Diagnoses Not on filedocumented in this encounter Care Teams Professor Of Poultry Science Relationship Specialty Start Date End Date Hawa Torres MD PCP - General Internal Medicine 09/09/15 12/19/20 Rancho Matthews MD [address] [place] [address]69 PCP - General Internal Medicine 12/20/20 03/22/[address] [address] PCP - General Internal Medicine 03/23/21 04/11/21 Rancho Matthews MD [address] [place] [address] 99282 PCP - General Internal Medicine 04/12/21 04/12/21 Hawa Torres MD [address] [place] [address] 47271 PCP - General Internal Medicine 04/13/21 06/05/21 Hawa Torres MD [address] [place] [address] 13534 PCP - General Internal Medicine 06/06/21 08/07/21 [facility], Pcp [address] [place] [address] 70893 PCP - General Internal Medicine 08/08/21 10/27/21 Hawa Torres MD PCP - General Internal Medicine 10/28/21 04/11/22 [facility], Pcp [address] [place] [address] 41713 PCP - General Internal Medicine 04/12/22 05/01/22 Hawa Torres MD [address] [place] [address] 43831 PCP - General Internal Medicine 05/02/22 05/21/22 Melonie Sorensen DO [address] [place] [address] 86142 PCP - General Internal Medicine 05/22/22 09/07/22 [facility], Pcp [address] [place] [address] 52142 PCP - General Internal Medicine 09/08/22 11/08/22 Hawa Torres MD [address] [place] [address] 01003 PCP - General Internal Medicine 11/09/22 Taya Gonzales MD Specialist Cardiology 11/01/20 Chandan Breen PA Specialist Cardiology 11/01/20 02/20/24 Jessi Erwin DNP [address] [place] [address] 90343 Specialist Nurse Practitioner [facility] 02/21/24 documented as of this encounter
--- OUTSIDE RECORDS SUMMARY | 2024-12-05 16:52 | XMS_ITS | Encounter Summary ---
Author Organization [facility] Address [address] [place] [address] Care Team Providers Care Helper Animal Laboratory Name Role Phone Taya Gonzales MD Unavailable [phone] Hawa Torres MD Primary Care Provider Unavaila Jessi Cagle DNP Unavailable [phone] Encounter Details Date Type Department Care Team Description 04/16/2024 Sales Leader Report Medical Records [address] [place] [address] Chrissie Deal, SOFTWARE SYSTEMS ANALYST Social History Tobacco Use Types Packs/Day Years [...] on filedocumented in this encounter Care Teams Helper Animal Laboratory Relationship Specialty Start Date End Date Hawa Torres MD PCP - General Internal Medicine 11/09/22 Taya Gonzales MD Specialist Cardiology 11/01/20 Jessi Erwin DNP Specialist Nurse Practitioner Family 02/21/24 documented as of this encounter
--- OUTSIDE RECORDS SUMMARY | 2024-12-05 16:52 | XMS_ITS | Encounter Summary ---
Author Organization [facility] Address [address] [place] [address] Care Team Providers Care Tapper Bit Name Role Phone Taya Gonzales MD Unavailable [phone] Chandan Breen Unavailable Hawa Torres MD Primary Care Provider Unavaila Jessi Cagle DNP Unavailable [phone] Reason for Visit * Reason Comments Remote Device Check Device At [facility] Encounter Details Date Type Department Care Team Description 10/18/2023 Remote Device Check Cardio PVC POC 154 [address] [facility] [address] [place] [address] Nikhil Sorenson MD [address] [place] [address] [phone] Social History Tobacco Use Types Packs/Day Years [...] on filedocumented in this encounter Care Teams Tapper Bit Relationship Specialty Start Date End Date Hawa Torres MD PCP - General Internal Medicine 11/09/22 Taya Gonzales MD Specialist Cardiology 11/01/20 Chandan Breen PA Specialist Cardiology 11/01/20 02/20/24 Jessi Erwin DNP Specialist Nurse Practitioner Family 02/21/24 documented as of this encounter
--- OUTSIDE RECORDS SUMMARY | 2024-12-05 16:52 | XMS_ITS | Encounter Summary ---
Author Organization [facility] Address [address] [place] [address] Care Team Providers Care Installations Inspector Name Role Phone Hawa Torres MD Primary Care Provider UnavailTaya Lira MD Unavailable [phone] Chandan Breen Unavailable + Rancho Matthews MD Primary Care Provider + [facility], [facility] Primary Care [...] MD Primary Care Provider Unavaila Jessi Cagle [facility] Unavailable [phone] Encounter Details Date Type Department Care Team Description 12/08/2020 Chips Screen Tender Report Medical Records [address] [place] [address] Lorin Mcclelland MD Social History Tobacco Use [...] on filedocumented in this encounter Care Teams Installations Inspector Relationship Specialty Start Date End Date Hawa Torres MD PCP - General Internal Medicine 09/09/15 12/19/20 Rancho Matthews MD [address] [place] [address] PCP - General Internal Medicine 12/20/20 03/22/21 [facility], [place] [phone] PCP - General Internal Medicine 03/23/21 04/11/21 Rancho Matthews MD [address] [place] [address] PCP - General Internal Medicine 04/12/21 04/12/21 Hawa Torres MD [address] [place] [address] 48201 PCP - General Internal Medicine 04/13/21 06/05/21 Hawa Torres MD [address] [place] [address] 49841 PCP - General Internal Medicine 06/06/21 08/07/21 [facility], [address] [address] PCP - General Internal Medicine 08/08/21 10/27/21 Hawa Torres MD PCP - General Internal Medicine 10/28/21 04/11/22 [facility], Pcp [address] [place] [address] 26365 PCP - General Internal Medicine 04/12/22 05/01/22 Hawa Torres MD [address] [place] [address] 44331 PCP - General Internal Medicine 05/02/22 05/21/22 Melonie Sorensen DO [address] [place] [address] 8[address]80 PCP - General Internal Medicine 05/22/22 09/07/22 [facility], Pcp [address] [place] [address] 95394 PCP - General Internal Medicine 09/08/22 11/08/22 Hawa Torres MD [address] [place] [address] 98974 PCP - General Internal Medicine 11/09/22 Taya Gonzales MD Specialist Cardiology 11/01/20 Chandan Breen PA Specialist Cardiology 11/01/20 02/20/24 Jessi Erwin, KITTY [address] [place] [address] 33587 Specialist Nurse Practitioner [facility] 02/21/24 documented as of this encounter
--- OUTSIDE RECORDS SUMMARY | 2024-12-05 16:52 | XMS_ITS | Encounter Summary ---
Author Organization [facility] Address [address] [place] [address] Care Team Providers Care Pastry Supervisor Name Role Phone Taya Gonzales MD Unavailable [phone] Chandan Breen Unavailable Community, Pcp Primary Care Provider Hawa Zavala MD Primary Care Provider UnavailJessi Hogan DNP Unavailable [phone] Encounter Details Date Type Department Care Team Description 09/13/2022 SCAN Medical Records [address] [place] [address] Abstract, Provider Social History Tobacco Use Types [...] on filedocumented in this encounter Care Teams Pastry Supervisor Relationship Specialty Start Date End Date Community, Pcp PCP - General Internal Medicine 09/08/22 11/08/22 Hawa Torres MD PCP - General Internal Medicine 11/09/22 Taya Gonzales MD Specialist Cardiology 11/01/20 Chandan Breen PA Specialist Cardiology 11/01/20 02/20/24 Jessi Erwin DNP Specialist Nurse Practitioner [facility] 02/21/24 documented as of this encounter
--- OUTSIDE RECORDS SUMMARY | 2024-12-05 16:53 | XMS_ITS | Encounter Summary ---
Author Organization [facility] Address [address] [place] [address] Care Team Providers Care Congregational Care Pastor Name Role Phone Hawa Torres MD Primary Care Provider UnavailTaya Lira MD Unavailable [phone] Chandan Breen Unavailable Rancho Matthews MD Primary Care Provider [phone] [facility], Pcp Primary Care Provider UnavailRancho Brock MD Primary Care Provider [phone] Hawa Torres MD Primary Care Provider Unavaila Hawa Maddox MD Primary Care Provider Unavaila elpidio [facility], Pcp Primary Care Provider Hawa Zavala MD Primary Care Provider Unavaila ble [facility], Pcp Primary Care Provider Hawa Zavala MD Primary Care Provider Unavaila Melonie Rojas DO Primary Care Pro vider Unavailable Community, Pcp Primary Care Provider Hawa Zavala MD Primary Care Provider Unavaila Jessi Cagle [facility] Unavailable [phone] Encounter Details Date Type Department Care Team Description 08/13/2019 Pt. Non Urgent Medical Question Pulmonology - [place] [address] [facility] [address] [place] [address] Marcela Gunter FNP [address] [place], [place] [phone] Social History Tobacco Use Types Packs/Day Years [...] on filedocumented in this encounter Care Teams Congregational Care Pastor Relationship Specialty Start Date End Date Hawa Torres MD PCP - General Internal Medicine 09/09/15 12/19/20 Rancho Matthews MD [address] [place] [address] 60938 PCP - General Internal Medicine 12/20/20 03/22/21 [facility], [address] [address] PCP - General Internal Medicine 03/23/21 04/11/21 Rancho Matthews MD [address] [place] [address] 8[address]23 PCP - General Internal Medicine 04/12/21 04/12/21 Hawa Torres MD [address] [place] [address] 57542 PCP - General Internal Medicine 04/13/21 06/05/21 Hawa Torres MD [address] [place] [address] 84856 PCP - General Internal Medicine 06/06/21 08/07/21 [facility], Pcp [address] [place] [address] 00345 PCP - General Internal Medicine 08/08/21 10/27/21 Hawa Torres MD PCP - General Internal Medicine 10/28/21 04/11/22 [facility], Pcp [address] [place] [address] 07283 PCP - General Internal Medicine 04/12/22 05/01/22 Hawa Torres MD [address] [place] [address] 27255 PCP - General Internal Medicine 05/02/22 05/21/22 Melonie Sorensen, [address] [place] [address] 15997 PCP - General Internal Medicine 05/22/22 09/07/22 [facility], Pcp [address] [place] [address] 22912 PCP - General Internal Medicine 09/08/22 11/08/22 Hawa Torres MD [address] [place] [address] 74825 PCP - General Internal Medicine 11/09/22 Taya Gonzales MD Specialist Cardiology 11/01/20 Chandan Breen PA Specialist Cardiology 11/01/20 02/20/24 Jessi Erwin DNP [address] [place] [address] 09008 Specialist Nurse Practitioner [facility] 02/21/24 documented as of this encounter
--- OUTSIDE RECORDS SUMMARY | 2024-12-05 16:53 | XMS_ITS | Encounter Summary ---
Author Organization [facility] Address [address] [place] [address] Care Team Providers Care Lumber Tripper Name Role Phone Hawa Torres MD Primary [...] vider Unavailable [facility] [place], Pcp Primary Care Provider Hawa Zavala MD Primary Care Provider Unavaila Jessi Cagle [facility] Unavailable + [phone] Reason for Visit * Reason Onset Date Comments medication problems 07/15/2019 Encounter Details Date Type Department Care Team Description 07/15/2019 Telephone Medicine/Pediatrics - [address] [phone] Hawa Torres MD medication problems [...] on filedocumented in this encounter Care Teams Lumber Tripper Relationship Specialty Start Date End Date Hawa Torres MD PCP - General Internal Medicine 09/09/15 12/19/20 Rancho Matthews MD [address] [place] [address] PCP - General Internal Medicine 12/20/20 03/22/21 [facility] [place] [address] [address] PCP - General Internal Medicine 03/23/21 04/11/21 Rancho Matthews MD [address] [place] [address] 81985 PCP - General Internal Medicine 04/12/21 04/12/21 Hawa Torres MD [address] [place] [address] 72275 PCP - General Internal Medicine 04/13/21 06/05/21 Hawa Torres MD [address] [place] [address] 92756 PCP - General Internal Medicine 06/06/21 08/07/21 [facility] [place], Pcp [address] [place] [address] 46743 PCP - General Internal Medicine 08/08/21 10/27/21 Hawa Torres MD PCP - General Internal Medicine 10/28/21 04/11/22 [facility] [place], Pcp [address] [place] [address] 28890 PCP - General Internal Medicine 04/12/22 05/01/22 Hawa Torres MD [address] [place] [address] 68646 PCP - General Internal Medicine 05/02/22 05/21/22 Melonie Sorensen, DO [address] [place] [address] 55971 PCP - General Internal Medicine 05/22/22 09/07/22 [facility] [place], Pcp [address] [place] [address] 42492 PCP - General Internal Medicine 09/08/22 11/08/22 Hawa Torres MD [address] [place] [address] 73279 PCP - General Internal Medicine 11/09/22 Taya Gonzales MD Specialist Cardiology 11/01/20 Chandan Breen PA Specialist Cardiology 11/01/20 02/20/24 Jessi Erwin DNP [address] [place] [address] 08492 Specialist Nurse Practitioner [facility] 02/21/24 documented as of this encounter
--- OUTSIDE RECORDS SUMMARY | 2024-12-05 16:53 | XMS_ITS | Encounter Summary ---
Author Organization [facility] Address [address] [place] [address] Care Team Providers Care Waste Water Treatment Plant Operator Name Role Phone Hawa Torres MD [...] [facility] Unavailable + Encounter Details Date Type Department Care Team Description 09/30/2019 Mobile Homes Repairer Report Medical Records [address] [place] [address] Taya Gonzales MD [address] [place] [address] [phone] Social History Tobacco Use Types Packs/Day Years [...] on filedocumented in this encounter Care Teams Waste Water Treatment Plant Operator Relationship Specialty Start Date End Date Hawa Torres MD PCP - General Internal Medicine 09/09/15 12/19/20 Rancho Matthews MD [address] [place] [address] PCP - General Internal Medicine 12/20/20 03/22/21 [facility] Pcp [address] [place] [address] PCP - General Internal Medicine 03/23/21 04/11/21 Rancho Matthews MD [address] [place] [address] 30909 PCP - General Internal Medicine 04/12/21 04/12/21 Hawa Torres MD [address] [place] [address] 22433 PCP - General Internal Medicine 04/13/21 06/05/21 Hawa Torres MD [address] [place] [address] 58281 PCP - General Internal Medicine 06/06/21 08/07/21 [facility], Pcp [address] [place], [place] [address] [place] [address] PCP - General Internal Medicine 08/08/21 10/27/21 Hawa Torres MD PCP - General Internal Medicine 10/28/21 04/11/22 [facility], Pcp [address] [place] [address] 83286 PCP - General Internal Medicine 04/12/22 05/01/22 Hawa Torres MD [address] [place] [address] 40857 PCP - General Internal Medicine 05/02/22 05/21/22 Melonie Sorensen DO [address] [place] [address] 51182 PCP - General Internal Medicine 05/22/22 09/07/22 [facility], [address] [address] PCP - General Internal Medicine 09/08/22 11/08/22 Hawa Torres MD [address] [place] [address] 72404 PCP - General Internal Medicine 11/09/22 Taya Gonzales MD Specialist Cardiology 11/01/20 Chandan Breen PA Specialist Cardiology 11/01/20 02/20/24 Jessi Erwin DNP [address] [place] [address] Specialist Nurse Practitioner [facility] 02/21/24 documented as of this encounter
--- OUTSIDE RECORDS SUMMARY | 2024-12-05 16:53 | XMS_ITS | Clinical Summary ---
Author Organization [address] [place] [address] [place] [phone] Phone Care Team Providers Care Sewer Line Photo Inspector Name Role Phone Unavailable Primary Care Provider [...] MEAL PER SLIDING SCALE: <120: 0 units, 705904: 3 units, 151-199: 4 UNITS, 200-249: 5 [...] hypotension - Most recent echocardiogram 07/2022 at [facility] showed LVEF 10- 15%, global hypokinesis with wall motion abnormalities without hemodynamically significant valve disease - [facility] HOME DESIGNER-D generator change in 12/2023. There had been [...] Noted Date Diagnosed Date Resolved Date Old OR (myocardial infarction) 11/28/2023 10/14/2024 Overview (11/28/2023): March 2011 OR at [facility] Chronic systolic dysfunction of left ventricle 11/28/2023 10/14/2024 Overview (11/28/2023): S/P pacemaker Pacemaker 01/26/2021 10/14/2024 Overview (11/28/2023): Cardiac pacemaker Encounters Date Type Department Care Team Description 11/26/2024 Telephone [facility] Pulmonary [address] [place] [phone] Deo Breen MA Fitting for DME ([employer] oxygen) 11/16/2024 7:25 PM EST Ancillary Procedure [facility] Cardiology [facility] [address] [facility] [address] [place] [phone] 10/30/2024 3:40 PM EST Office Visit Endocrinology [address] [address] Lucille Clarke PA 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, with long-term current use of insulin ([facility]) (Primary Dx); Hypothyroidism, unspecified type 10/22/2024 Telephone [facility] Cardiology [facility] [address] [place] [address] Jessi Erwin NP faxed office note 10/14/2024 10:25 PM EST Ancillary Procedure [facility] [address] [place] [address] 10/14/2024 12:40 PM EST Consult [facility] [address] [place] [address] Jessi Erwin NP Chronic systolic dysfunction of left ventricle (Primary Dx); Primary hypertension; 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; Systolic left-sided congestive heart failure, NYHA class 2 (CMS/HCC); Pure hypercholesterolemia; Preop cardiovascular exam 09/30/2024 3:15 PM EST Office Visit [facility] Hematology Oncology [address] [place] [phone] Cullen Gibson MD 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 breast in female, estrogen receptor positive (CMS/HCC) (Primary Dx) 09/15/2024 Telephone [facility] [address] [place] [address] Ramya Headley NP Arm Swelling 09/11/2024 11:25 AM EST Ancillary Procedure [facility] [address] [place] [address] 09/09/2024 Telephone [facility] [address] [place] [address] Nikhil Sorenson MD from Last 3 Months [...] Description 02/04/2025 3:30 PM EDT Ancillary Procedure [facility] - [facility] [address] [facility] [address] [place] [address] 02/19/2025 3:40 PM EDT Office Visit Endocrinology - [address] [phone] Lucille Clarke PA [address] [place] [address] 03/31/2025 3:15 PM EDT Office Visit [facility] Hematology Oncology [address] [place] [phone] Cullen Gibson MD [address] [place] [phone] 04/09/2025 3:40 PM EDT Appointment Radiology Department - [place] [address] [place] [phone] 04/23/2025 10:50 AM EDT Office Visit [facility] [address] [facility] [address] [place] [phone] Taya Gonzales MD [address] [place] [address] Health Maintenance Due Date Last Done Comments [...] this topic Medical Devices Implanted Type Area Final Operations Technician Device Identifier Shelf Expiration Date Model / Serial / Lot Davidt-Stju 3357-40q Digital Labfy Assura(Tm) [id number] Implanted:12/23 (Quantity not on file) Cardiac HOME DESIGNER-D ICD [employer] 3357-40Q AccelOne ASSURA(TM) / [id number] / Procedures Procedure Name Priority Date/Time Associated [...] period is included. Date Time Interrogation Session [id number] CV DEVICE CHECK Type Interrogation Session Remote Scheduled CV DEVICE CHECK Implantable Pulse Generator Final Operations Technician [employer] CV DEVICE CHECK Implantable Pulse Generator Type HOME DESIGNER-D CV DEVICE CHECK Implantable Pulse Generator Model 3357-40Q Digital LabMobilePaksura(TM) CV DEVICE CHECK Implantable Pulse Generator Serial Number [id number] CV DEVICE CHECK Implantable Pulse Generator Implant Date 20240110 CV DEVICE CHECK Battery Remaining Percentage 82.00 CV DEVICE CHECK Battery Remaining Longevity 53.0 CV DEVICE CHECK Battery Voltage 3.010 CV D EVICE CHECK Battery ASP DEVELOPER Trigger 2.590 CV DEVICE CHECK Battery Status Middle of Service CV DEVICE CHECK Capacitor Charge Time 8.000 CV DEVICE CHECK Antione Statistic RA Percent Paced 41.00 CV DEVICE CHECK Antione Statistic RV Percent Paced 100.00 CV DEVICE CHECK HOME DESIGNER Statistic HOME DESIGNER Percent Paced 99.00 CV DEVICE CHECK Atrial Tachy Statistic AT/AF Irving Percent 0.00 CV DEVICE CHECK Lead Channel [...] CV DEVICE CHECK Ventricular chambers paced during HOME DESIGNER pacing. BiV CV DEVICE CHECK Antione Setting Lower Rate Limit 60 CV DEVICE CHECK Antione Setting AT Mode Switch Rate 180 CV DEVICE CHECK Antione Setting Maximum Tracking Rate 110 CV DEVICE CHECK Antione Setting Maximum Sensor Rate 110 CV DEVICE CHECK Antione Setting PAV Delay 150 CV DEVICE CHECK Antione Setting JAGJIT Delay 130 CV DEVICE CHECK HOME DESIGNER LV-RV Delay 40 CV D EVICE CHECK [...] GEMUSE QTc 510 ms GEMUSE P Wave [place] 69 degrees GEMUSE R [place] -65 degrees GEMUSE T [place] 97 degrees GEMUSE ECG Interpretation Atrial sensed, [...] PM EST Narrative 11/08/2020 3:13 PM EST [facility] Diagnostic Imaging Department [address] [place] [address] Patient: ??DANA NASH ?/Age/Sex: 1940 - 80 - F Unit#: ??[id number] ? Location/Status: ??SPDIMAM/REG CLI ? Mnemonic/Ordering Site: ??MAMDEXAAX/SPMAM Ordering Physician: ??CULLEN GIBSON MD [facility] Dexa Axial Skeleton - 11/08/20 - 1325 HISTORY: ??The patient is a 80-year-old postmenopausal [...] probability of hip fracture of 3.1%. Code 42666 Dictating Physician: ??KYLIE GLASER MD Electronically Signed by: ??KYLIE GLASER MD Dic Date/Time: ??11/08/20 151 Sign date/Time: ??11/08/20 1513 Procedure Note Kylie Glaser MD - 09/12/2022 [facility] Diagnostic Imaging Department [address] [place] [address] Patient: DANA NASH/Age/Sex: 1940 - 80 - F Unit#: [id number] Location/Status: SPDIMAM/REG CLI Mnemonic/Ordering Site: MAMDEXAAX/SPMAM Ordering Physician: CULLEN GIBSON MD [facility] Dexa Axial Skeleton - 11/08/201323 HISTORY: The [...] density of the femurs bilaterally is 0.981 gm/qz3mivos is 97% of that of young normals [...] probability of hip fracture of 3.1%. Code 58381 Dictating Physician: KYLIE GLASER MD Electronically Signed by: KYLIE GLASER MD Dic Date/Time: 11/08/201511 Sign date/Time: 11/08/201512 Cullen Gibson MD IMG BI PROCEDURES Final Res ult from Last 3 Months or Most Recently Relevant to Health Maintenance Insurance [employer] [place]
[2024-12-05 17:53] LABS: MANUAL DIFF FLAG NO
[2024-12-05 18:04] LABS: Basophils Percent Auto 0.6 % (0-2); Eosinophils Absolute Auto 0.1 X10*3/uL (0.0-0.4); Eosinophils Percent Auto 2.8 % (0-4); Hematocrit 36.5 % (37.0-47.0); Hemoglobin 11.2 g/dl (12.0-16.0); Imm Gran Abs Auto 0.03 X10*3/uL (0.00-0.03); Imm Gran Pct Auto 0.6 % (0.0-0.4); Lymphocytes Absolute Auto 0.8 X10*3/uL (1.2-4.9); Lymphocytes Percent Auto 16.5 % (20-40); Mean Corpuscular HGB Conc 30.7 g/dl (31.0-35.0); Mean Corpuscular Hemoglobin 34.4 pg (27.0-33.0); Mean Platelet Volume 11.3 fL (9.4-12.3); Monocytes Absolute Auto 0.7 X10*3/uL (0.1-1.2); Monocytes Percent Auto 14.7 % (2-11); Neutrophils Absolute Auto 3.3 x10*3/uL (2.0-8.3); Neutrophils Percent Auto 64.8 % (45-73); Platelet Count 132 X10*3/uL (160-400); Red Blood Count 3.26 X10*6/uL (4.20-5.50); Red Cell Distribution Width 14.4 % (11.0-16.0)
[2024-12-05 18:26] LABS: Alanine Aminotransferase 17 U/L (0-31); Albumin Level 3.7 g/dL (3.5-5.0); Alkaline Phosphatase 206 U/L (39-117); Anion Gap 14 (12-20); Aspartate Amino Transferase 24 U/L (5-31); Bilirubin Total 0.5 mg/dL (0.0-1.0); Blood Urea Nitrogen 26 mg/dL (9-16); Calcium 9.8 mg/dL (8.4-10.2); Carbon Dioxide 35 mmol/L (22-29); Chloride 99 mmol/L (96-108); Cholesterol 116 mg/dL (<200); Estimated Glomerular Filt Rate 15; Glucose Random 209 mg/dL (60-115); HDL Cholesterol 42 mg/dL (>40); LDL Cholesterol Calculated 39 mg/dL (<100); Potassium 3.7 mmol/L (3.3-5.1); Sodium 144 mmol/L (135-145); Triglycerides 175 mg/dL (<150)
[2024-12-05 18:41] LABS: TSH reflex Free T4 12.19 uIU/mL (0.32-4.0)
[2024-12-05 18:42] LABS: Vitamin D 25-OH Total 38.1 ng/mL (>30)
[2024-12-05 19:14] LABS: Free T4 (Free Thyroxine) 0.95 ng/dL (0.71-1.85)
[2024-12-06 03:46] LABS: Estimated Average Glucose 146 mg/dL; Hemoglobin A1c % 6.7 % (<6.0)
== END 2024-12-05 16:18 | disposition home or self-care (01) ==
LOC: HO.WFDLDS 16:17
PROVIDERS: Referring Provider Nurse Practitioner Family; Visit Provider Internal Medicine
DX: J06.9 Acute upper respiratory infection, unspecified (principal); E11.22 Type 2 diabetes mellitus with diabetic chronic kidney disease; I13.0 Hypertensive heart and chronic kidney disease with heart failure and stage 1 through stage 4 chronic kidney disease, or unspecified chronic kidney disease; N18.6 End stage renal disease; I50.20 Unspecified systolic (congestive) heart failure; Z79.4 Long term (current) use of insulin; Z99.2 Dependence on renal dialysis
CPT/HCPCS: 0241U; 36415; 80053; 80061; 82306; 83036; 84439; 84443; 85025; 99212

== ENCOUNTER 2025-02-17 08:46 | Outpatient (AMB) | payer MEDICARE, MEDICAID, SELFPAY ==
--- NOTE | 2025-02-17 08:47 | A.OFFPC_ITS ---
Vital Signs 02/17/25 08:58 Height 4 ft 9 in Weight 142 lb 6 oz BMI 30.8 BP 134/54 L Blood Pressure Location Rt brachial Position Sitting Respiration 14 Pulse 71 Pulse Source Pulse Oximeter Pulse Oximetry (%) 94 Oxygen Delivery Method Room Air Intake Visit Reasons: F/U Bloodwork (pcp) Intake Note: Follow up labs Systems Program Manager Required: No Systems Program Manager Name: supervisor slate splitting declined Accompanied by: Daughter Allergies cetirizine Allergy (Unknown, Verified 02/17/25 08:56) Unknown lisinopril Allergy (Unknown, Verified 02/17/25 08:56) Unknown losartan Allergy (Unknown, Verified 02/17/25 08:56) Unknown spironolactone Allergy (Unknown, Verified 02/17/25 08:56) Unknown contrast dye Allergy (Unknown, Uncoded 02/17/25 08:56) kidney failure Tobacco use date assessed: 02/17/25 Fall risk assessment: No Falls in past year Last assessed Fall Risk: 02/17/25 Dental Screening Dental Screen Date: 02/17/25 Did you have a dental visit in the last 12 months?: Yes Did you have a dental problem in the last 6 months where you did not have access to dental care?: No Was dental information given to patient?: Patient has dentist HPI HPI Comments History of Present Illness Details 85-year-old female with past medical his tory of type 2 diabetes, ESRD on HD, CAD, CHF, history of breast cancer, depression, presenting for follow up CV: Follows with cardiology. Increased shortness of breath. No leg swelling or weight change. Has appt with pulmonary scheduled for tomorrow Endocrine: Hypothyroid on levothyroxine-increased after last TSH elevated. DM: generally well controlled Depression is stable on prozac. Nephro: On HD 3x/week. Has been doing well. GI: Dysphagia. Had barium swallow. Saw GI. Decreased hearing over the past few months. Had flu in October. Ears feel blocked. There is significant cerumen impaction in both ROS see HPI PHYSICAL EXAM: GENERAL: Alert and oriented x 3. NAD EYES: EOMI. Anicteric. HENT: Moist mucous membranes. Cerumen impaction b/l LUNGS: Clear to auscultation bilaterally. CARDIOVASCULAR: Regular rate and rhythm. +murmur. No JVD. ABDOMEN: Soft, non-tender +bs EXTREMITIES: No edema. Non-tender. SKIN: No rashes or lesions. Warm. NEUROLOGIC: No focal neurological deficits. CN II-XII grossly intact PSYCHIATRIC: Cooperative. Appropriate mood and affect [facility] Medical History Fistula Urge incontinence of urine Type 2 diabetes mellitus Tubular adenoma of colon Systolic left-sided congestive heart failure, NYHA class 2 Pulmonary embolism Protein malnutrition Osteopenia STACEY on CPAP Malignant neoplasm of female breast Lichen sclerosus of vulva Left leg swelling Incontinence Hypothyroidism HTN (hypertension) Hyperlipidemia Hiatal hernia Gastro-esophageal reflux ESRD on dialysis Diabetes mellitus Coronary arteriosclerosis Ischemic cardiomyopathy Congestive heart failure Cancer of left breast CAD (coronary artery disease) Anemia Surgical History H/O colonoscopy H/O: hysterectomy S/P SANDRINE-BSO History of implantable cardiac defibrillator (ICD) Family History Maternal Grandmother Cardiovascular disease Father Lung cancer Social History Housing: House Alcohol intake: current Patient Tobacco Use Status: Never used Tobacco e-Cigarette/Vaping Use: Never Used Second Hand Smoke Exposure: Yes service: No Current occupational status: disabled Current occupational exposures/hazards: No Cognitive needs: No Hearing needs: No Vision needs: No Questionnaire Thrive Questionnaire Date Thrive assessed: 11/04/24 I am a: Parent/Caregiver What is your living situation today?: I have a steady place to live Within the past 12 months, did the food you bought not last and you didn't have the money to get more?: Never true Within the past 12 months, did you worry whether your food would run out before you got money to buy more?: Never true Do you have trouble paying for medicines?: No Do you have trouble getting transportation to medical appointments?: No Do you have trouble paying your heating and electricity bill?: No Do you have trouble taking care of your child, family member or friend?: No Do you have trouble with day-to-day activities such as bathing, preparing meals, shopping, managing finances, etc.?: Yes Are you currently unemployed and looking for a job?: No Are you interested in more education?: No Please select the resources that you would like help with: None Currently or been in a relationship where the following occur: No concerns reported THRIVE Score: 0 AUDIT C Alcohol Use Questionnaire (AUDIT-C) 1. How often do you have a drink containing alcohol?: Monthly or less 2. How many drinks containing alcohol do you have on a typical day when you are drinking?: 1 or 2 3. How often do you have six or more drinks on one occasion?: Never Total Score: 1 ANDREEA-7 AMB Questionnaire ANDREEA-7 Date ANDREEA - 7 assessed: 11/11/24 Source: Developed by Drs. Bienvenido Aragon, Winnie Givens, Matt Alcantar and colleagues, with an educational justen from [employer]. Physical exam (Primary Care) Vital Signs: Last Vital Signs Pulse 71 02/17/25 08:58 Resp 14 02/17/25 08:58 BP 134/54 L 02/17/25 08:58 Pulse Ox 94 02/17/25 08:58 Oxygen Delivery Method Room Air 02/17/25 08:58 BMI result Body Mass Index 30.8 Tobacco/Smoking Status: Tobacco use Status Tobacco use date assessed 02/17/25 02/17/25 08:58 Patient Tobacco Use Status Never used Tobacco 02/17/25 08:48 e-Cigarette/Vaping Use Never Used 02/17/25 08:48 Thrive Assessment: Date of Thrive Assessment Date Thrive assessed 11/04/24 02/17/25 08:48 Currently or been in a relationship where the following occur: No concerns reported Coding Level of Care Code Est Pt Level 4 (12064) Complex EM visit Add On G2211 Diagnoses Hypothyroidism, unspecified type E03.9 Hypothyroidism type: unspecified Systolic left-sided congestive heart failure, NYHA class 2 I50.20 Type 2 diabetes mellitus with chronic kidney disease on chronic dialysis, with long-term current use of insulin E11.22; N18.6; Z79.4; Z99.2 Diabetes mellitus buttermilk drier operator insulin use: with buttermilk drier operator use Diabetes mellitus complication status: with kidney complications Diabetes mellitus complication detail: with chronic kidney disease Chronic kidney disease stage: on chronic dialysis Bilateral impacted cerumen H61.23 Laterality: bilateral Assessment & Plan Assessment & Plan (1) Hypothyroidism: Code(s): E03.9 - Hypothyroidism, unspecified Category: Medical Qualifiers: Hypothyroidism type: unspecified Qualified Code(s): E03.9 - Hypothyroidism, unspecified (2) Systolic left-sided congestive heart failure, NYHA class 2: Code(s): I50.20 - Unspecified systolic (congestive) heart failure Category: Medical (3) Type 2 diabetes mellitus: Code(s): E11.9 - Type 2 diabetes mellitus without complications Category: Medical Qualifiers: Diabetes mellitus buttermilk drier operator insulin use: with buttermilk drier operator use Diabetes mellitus complication status: with kidney complications Diabetes mellitus complication detail: with chronic kidney disease Chronic kidney disease stage: on chronic dialysis Qualified Code(s): E11.22 - Type 2 diabetes mellitus with diabetic chronic kidney disease; N18.6 - End stage renal disease; Z79.4 - intermission coordinator (current) use of insulin; Z99.2 - Dependence on renal dialysis (4) Cerumen impaction: Code(s): H61.20 - Impacted cerumen, unspecified ear Category: Medical Qualifiers: Laterality: bilateral Qualified Code(s): H61.23 - Impacted cerumen, bilateral Plan 85 year old for follow up Increased shortness of breath-check CBC. Has follow up with pulm booked Cerumen impaction. Ear drops x one week then return for cleaning Referral to ENT for hearing loss. Orders: Orders Pathologist Review - CBC Today E03.9 - Hypothyroidism, unspecified, I10 - Essential (primary) hypertension, R06.02 - Shortness of breath TSH reflex Free T4 Today E03.9 - Hypothyroidism, unspecified, I10 - Essential (primary) hypertension, R06.02 - Shortness of breath Complete Blood Count Auto Diff Today E03.9 - Hypothyroidism, unspecified, I10 - Essential (primary) hypertension, R06.02 - Shortness of breath Referrals Ear/Nose/Throat Referral H61.20 - Impacted cerumen, unspecified ear, H91.90 - Unspecified hearing loss, unspecified ear Medications: New carbamide peroxide 6.5% (Debrox) 5 drps otic (ears) DAILY 4 days 15 mL 0RF
[2025-02-17 08:58] VITALS: BP 134/54; PULSE 71; RESP 14; O2SAT 94; BMI 30.8
--- OUTSIDE RECORDS SUMMARY | 2025-02-17 09:05 | XMS_ITS | Encounter Summary ---
Author Organization Formerly [facility] Facility Address [address] [facility] [address] [place] [address] [place] [id number] Care Team Providers Care Valuation Consultant Name Role Phone Unavailable Primary Care Provider Unavailabl e Encounter Details Date Type Department Care Team (Latest Contact Info) Description 05/28/2024 Treatment Aldo Rice MD [address] [facility] [address] [place] [address] Social History Tobacco Use Types [...] care for end stage renal disease. Attending Kids Club Attendant: ALDO RICE MD Dialysis Location: [facility] Schedule: Shift: 1 OVERVIEW Patient is stable. HOME MEDICATIONS Medications reviewed. Current Evan [facility] Outpatient Medications calcitriol (ROCALTROL) 0.25 MCG capsule TOME 1 CAPSULA POR VIA ORAL TODOS [place] Start Date: 08/08/2021 sevelamer carbonate (RENVELA) 800 MG tablet TOME CAMERON TABLETA JOANN VECES AL WOOD CON LAS COMIDAS Start Date: 02/13/2024 Current Evan Epic Allergies Allergen: Not on File BP [...]
== END 2025-02-17 09:21 | disposition home or self-care (01) ==
LOC: HO.HMCFM 08:47
PROVIDERS: PCP Internal Medicine; Visit Provider Internal Medicine
DX: I50.20 Unspecified systolic (congestive) heart failure (principal); E11.22 Type 2 diabetes mellitus with diabetic chronic kidney disease; N18.6 End stage renal disease; Z79.4 Long term (current) use of insulin; E03.9 Hypothyroidism, unspecified; Z99.2 Dependence on renal dialysis; H61.23 Impacted cerumen, bilateral

== ENCOUNTER 2025-02-17 09:34 | Outpatient (REF) | payer MEDICARE, MEDICAID, SELFPAY ==
[2025-02-17 11:05] LABS: MANUAL DIFF FLAG NO
[2025-02-17 11:13] LABS: Basophils Percent Auto 0.4 % (0-2); Eosinophils Absolute Auto 0.1 X10*3/uL (0.0-0.4); Eosinophils Percent Auto 2.7 % (0-4); Hematocrit 32.6 % (37.0-47.0); Hemoglobin 10.5 g/dl (12.0-16.0); Imm Gran Abs Auto 0.01 X10*3/uL (0.00-0.03); Imm Gran Pct Auto 0.2 % (0.0-0.4); Lymphocytes Absolute Auto 0.8 X10*3/uL (1.2-4.9); Lymphocytes Percent Auto 14.9 % (20-40); Mean Corpuscular HGB Conc 32.2 g/dl (31.0-35.0); Mean Corpuscular Hemoglobin 34.4 pg (27.0-33.0); Mean Corpuscular Volume 106.9 fL (80.0-98.0); Mean Platelet Volume 10.9 fL (9.4-12.3); Monocytes Absolute Auto 0.6 X10*3/uL (0.1-1.2); Monocytes Percent Auto 11.7 % (2-11); NRBC Pct Auto 0.4 /100WBC (0.0-0.2); Neutrophils Absolute Auto 3.7 x10*3/uL (2.0-8.3); Neutrophils Percent Auto 70.1 % (45-73); Platelet Count 111 X10*3/uL (160-400); Red Blood Count 3.05 X10*6/uL (4.20-5.50); White Blood Count 5.2 X10*3/uL (4.8-10.8)
[2025-02-17 11:47] LABS: TSH reflex Free T4 3.99 uIU/mL (0.32-4.0)
[2025-02-17 12:01] LABS: Alanine Aminotransferase 20 U/L (0-31); Albumin Level 3.7 g/dL (3.5-5.0); Alkaline Phosphatase 216 U/L (39-117); Aspartate Amino Transferase 28 U/L (5-31); Bilirubin Direct 0.2 mg/dL (0.0-0.5); Bilirubin Total 0.5 mg/dL (0.0-1.0)
== END 2025-02-17 09:35 | disposition home or self-care (01) ==
LOC: HO.WFDLDS 09:34
PROVIDERS: Nurse Practitioner Family; Visit Provider Internal Medicine
DX: R06.02 Shortness of breath (principal); R74.01 Elevation of levels of liver transaminase levels; E03.9 Hypothyroidism, unspecified; E11.22 Type 2 diabetes mellitus with diabetic chronic kidney disease; I13.2 Hypertensive heart and chronic kidney disease with heart failure and with stage 5 chronic kidney disease, or end stage renal disease; N18.6 End stage renal disease; I25.10 Atherosclerotic heart disease of native coronary artery without angina pectoris; I50.20 Unspecified systolic (congestive) heart failure; H61.23 Impacted cerumen, bilateral; Z79.4 Long term (current) use of insulin; Z85.3 Personal history of malignant neoplasm of breast; Z99.2 Dependence on renal dialysis
CPT/HCPCS: 36415; 80076; 84443; 85025; 99212

== ENCOUNTER → 2025-02-24 09:02 | Outpatient (BNVA) | payer MEDICARE, MEDICAID, SELFPAY | PROVIDERS: PCP Internal Medicine; Visit Provider Internal Medicine ==

== ENCOUNTER 2025-06-23 08:58 | Outpatient (REF) | payer MEDICARE, MEDICAID, SELFPAY ==
--- OUTSIDE RECORDS SUMMARY | 2025-06-23 10:32 | XMS_ITS | Clinical Summary ---
Author Organization [facility] Address [address] [place] [phone] Phone Care Team Providers Care Parts Department Manager Name Role Phone Unavailable Primary Care Provider Unavailabl e Medications calcitriol (ROCALTROL) 0.25 MCG capsule TOME 1 CAPSULA POR VIA ORAL TODOS [place]ERN[place] 90 capsule 3 08/08/2021 Active sevelamer carbonate (RENVELA) 800 MG tablet TOME CAMERON TABLETA JOANN VECES AL WOOD CON LAS COMIDAS 270 tablet 1 02/13/2024 Active Encounters Date Type Department Care Team Description 06/15/2025 Treatment [facility] [address] [phone] Ryan Graf MD End stage renal disease; Dependence on renal dialysis 06/10/2025 Orders Only [facility] [address] [phone] Ryan Graf MD 06/10/2025 Treatment [facility] [address] [phone] Ryan Graf MD End stage renal disease; Dependence on renal dialysis 06/01/2025 Treatment [facility] [address] [phone] Ryan Graf MD End stage renal disease; Dependence on renal dialysis 05/27/2025 Treatment [facility] [address] [phone] Ryan Graf MD End stage renal disease; Dependence on renal dialysis 05/18/2025 Treatment [facility] [address] [phone] Ryan Graf MD End stage renal disease; Dependence on renal dialysis 05/11/2025 Treatment [facility] [address] [phone] Ryan Graf MD End stage renal disease; Dependence on renal dialysis 05/04/2025 Treatment [facility] [address] [phone] Ryan Graf MD End stage renal disease; Dependence on renal dialysis 04/27/2025 Treatment [facility] [address] [phone] Ryan Graf MD End stage renal disease; Dependence on renal dialysis 04/20/2025 Treatment [facility] [address] [phone] Ryan Graf MD End stage renal disease; Dependence on renal dialysis 04/13/2025 Treatment [facility] [address] [phone] Ryan Graf MD End stage renal disease; Dependence on renal dialysis 04/06/2025 Treatment [facility] [address] [phone] Ryan Graf MD End stage renal disease; Dependence on renal dialysis 04/01/2025 Treatment [facility] [address] [phone] Ryan Graf MD End stage renal disease; Dependence on renal dialysis from Last 3 Months Social History Tobacco [...] Exam 03/18/2021 Diabetes: Visual Foot Exam 03/18/2021 Influenza Vaccine (#1) 2025 0, 07/24/2019, 08/06/2018, Additional history exists Diabetes: Hemoglobin A1C 06/25/2025 025, 12/24/2024, 08/30/2022 Pneumococcal Vaccine: 50+ Years Completed 03/10/2015, 08/11/2009, 08/03/2005 Pneumococcal Vaccine: Peds ( 0 to 5 Years) and At-Risk Patients (6 to 49 Years) Discontinued 03/10/2015, 08/11/2009, 08/03/2005 Procedures Procedure Name Priority Date/Time Associated Diagnosis Comments HEMOGLOBIN Routine 06/17/2025 3:00 AM EDT HEMOGLOBIN Routine 06/15/2025 3:00 AM EDT HEMOGLOBIN AND HEMATOCRIT, BLOOD Routine 06/10/2025 3:00 AM EDT HEPATITIS B SURFACE ANTIGEN W/REFL CONFIRM Routine 05/27/2025 3:00 AM EDT TRANSFERRIN SATURATION Routine 3:00 AM EDT PROTEIN, TOTAL, SERUM Routine 05/27/2025 3:00 AM EDT MAGNESIUM Routine 05/27/2025 3:00 AM EDT LIH (HC) Routine 05/27/2025 3:00 AM EDT ELECTROLYTE PANEL Routine 05/27/2025 3:0 0 AM EDT LACTATE DEHYDROGENASE Routine 05/27/2025 3:00 AM EDT GLUCOSE, RANDOM Routine 05/27/2025 3:00 AM EDT CREATININE, SERUM Routine 05/27/2025 3:0 0 AM EDT BUN/CREATININE RATIO Routine 05/27/2025 3:00 AM EDT BILIRUBIN, TOTAL Routine 05/27/2025 3:00 AM EDT AST Routine 05/27/2025 3:00 AM EDT ALT Routine 05/27/2025 3:00 AM EDT ALKALINE PHOSPHATASE Routine 05/27/2025 3:00 AM EDT CALCIUM PHOSPHORUS PRODUCT, ADJUSTED (HC) Routine 05/27/2025 3:00 AM EDT FERRITIN Routine 05/27/2025 3:00 AM EDT KT/V NATURAL LOG, URR (HC) Routine 05/27/2025 3:00 AM EDT CBC AND DIFFERENTIAL Routine 05/27/2025 3:00 AM EDT HEMOGLOBIN Routine 05/18/2025 3:00 AM EDT HEMOGLOBIN AND HEMATOCRIT, BLOOD Routine 05/13/2025 3:00 AM EDT PHOSPHATE ( PHOSPHORUS) Routine 05/08/2025 3:00 AM EDT LIH (HC) Routine 05/08/2025 3:00 AM EDT HEPATITIS B SURFACE ANTIGEN W/REFL CONFIRM Routine 04/29/2025 3:00 AM EDT FERRITIN Routine 04/29/2025 3:00 AM EDT TRANSFERRIN SATURATION Routine 3:00 AM EDT PROTEIN, TOTAL, SERUM Routine 04/29/2025 3:00 AM EDT MAGNESIUM Routine 04/29/2025 3:00 AM EDT ELECTROLYTE PANEL Routine 04/29/2025 3:0 0 AM EDT LIH (HC) Routine 04/29/2025 3:00 AM EDT GLUCOSE, RANDOM Routine 04/29/2025 3:00 AM EDT LACTATE DEHYDROGENASE Routine 04/29/2025 3:00 AM EDT CREATININE, SERUM Routine 04/29/2025 3:0 0 AM EDT BUN/CREATININE RATIO Routine 04/29/2025 3:00 AM EDT AST Routine 04/29/2025 3:00 AM EDT BILIRUBIN, TOTAL Routine 04/29/2025 3:00 AM EDT ALKALINE PHOSPHATASE Routine 04/29/2025 3:00 AM EDT ALT Routine 04/29/2025 3:00 AM EDT CALCIUM PHOSPHORUS PRODUCT, ADJUSTED (HC) Routine 04/29/2025 3:00 AM EDT KT/V NATURAL LOG, URR (HC) Routine 04/29/2025 3:00 AM EDT CBC AND DIFFERENTIAL Routine 04/29/2025 3:00 AM EDT HEMOGLOBIN Routine 04/22/2025 3:00 AM EDT HEMOGLOBIN Routine 04/15/2025 3:00 AM EDT HEMOGLOBIN AND HEMATOCRIT, BLOOD Routine 04/08/2025 3:00 AM EDT HEMOGLOBIN A1C Routine 03/25/2025 3:00 AM EDT FERRITIN Routine 03/25/2025 3:00 AM EDT HEPATITIS C ABS W/REFLEX RNA DETECTR Routine 03/25/2025 3:00 AM EDT CONFIRMATION TEST HCV Routine 03/25/2025 3:00 AM EDT HEPATITIS B SURFACE ANTIGEN W/REFL CONFIRM Routine 03/25/2025 3:00 AM EDT PTH, INTACT Routine 03/25/2025 3:00 AM EDT PROTEIN, TOTAL, SERUM Routine 03/25/2025 3:00 AM EDT TRANSFERRIN SATURATION Routine 3:00 AM EDT LIPID PANEL Routine 03/25/2025 3:00 AM EDT MAGNESIUM Routine 03/25/2025 3:00 AM EDT ELECTROLYTE PANEL Routine 03/25/2025 3:0 0 AM EDT LIH (HC) Routine 03/25/2025 3:00 AM EDT GLUCOSE, RANDOM Routine 03/25/2025 3:00 AM EDT LACTATE DEHYDROGENASE Routine 03/25/2025 3:00 AM EDT CREATININE, SERUM Routine 03/25/2025 3:0 0 AM EDT BILIRUBIN, TOTAL Routine 03/25/2025 3:00 AM EDT BUN/CREATININE RATIO Routine 03/25/2025 3:00 AM EDT ALT Routine 03/25/2025 3:00 AM EDT ALKALINE PHOSPHATASE Routine 03/25/2025 3:00 AM EDT AST Routine 03/25/2025 3:00 AM EDT CALCIUM PHOSPHORUS PRODUCT, ADJUSTED (HC) Routine 03/25/2025 3:00 AM EDT KT/V NATURAL LOG, URR (HC) Routine 03/25/2025 3:00 AM EDT CBC AND DIFFERENTIAL Routine 03/25/2025 3:00 AM EDT from Last 3 Months Results * Hemoglobin (06/17/2025 3:00 AM EDT) Only the most recent of5 resultswithin the time period is included. Hgb 11.3 11.2 - 15.7 g/dL [facility] Hemoglobin x 3 33.9 33.6 - 47.1 g/dL [facility] 06/17/2025 3:00 AM EDT 06/18/2025 1:01 PM EDT us Ryan Graf MD LAB BLOOD ORDERABLES Final Resul t [facility] [address] [place] [address] * (ABNORMAL) Hemoglobin and hematocrit (06/10/2025 3:00 AM EDT) Only the most recent of3 resultswithin the time period is included. Hgb 11.1(L) 11.2 - 15.7 g/dL [facility] Hematocrit 35.2 34.1 - 44.9 % [facility] Hemoglobin x 3 33.3(L) 33.6 - 47.1 g/dL [facility] 06/10/2025 3:00 AM EDT 06/11/2025 2:46 PM EDT us Ryan Graf MD LAB BLOOD ORDERABLES Final Resul t Performing Organization Address City/[facility]/ZIP Co de Phone Number [facility] [address] [place] [address] * LIH (05/27/2025 3:00 AM EDT) Only the most recent of4 resultswithin the time period is included. Lipemia Normal Normal [facility] Icterus Normal Normal [facility] Hemolysis Normal Normal [facility] 05/27/2025 3:00 AM EDT 05/28/2025 4:54 PM EDT us Ryan Graf MD LAB [id number] ICITED RESULTS Final Result Performing Organization Address [facility] de Phone Number [facility] [address] [place] [address] * (ABNORMAL) Kt/V Natural Log, URR (05/27/2025 3:00 AM EDT) Only the most recent of3 resultswithin the time period is included. Treatment Time 199 min [facility] Pre-Weight, lb 65.1 kg [facility] Post-Weight, lb 63.0 kg [facility] Ultrafiltration Rate 10 <=13 mL/kg/hr [facility] Comment: Recommend achieving Ultrafiltration Rate (UFR) <=10 mL/kg/hr References: Cali GUERRA et al. Kidney Int. 2010; 79(2):250-257 BUN 52(H) 7 - 25 mg/dL [facility] BUN Post Dialysis 11 7 - 25 mg/dL [facility] UREA REDUCTION RATIO (%) 79 >=65 % [facility] Kt/V Natural Log 1.80 >=1.2 [facility] 05/27/2025 3:00 AM EDT 05/28/2025 4:37 PM EDT us Ryan Graf MD LAB [id number] ICITED RESULTS Final Result Performing Organization Address [facility] Co de Phone Number [facility] [address] [place] [address] * (ABNORMAL) Calcium Phosphorus Product, Adjusted (05/27/2025 3:00 AM EDT) Only the most recent of3 resultswithin the time period is included. Albumin 4.3 3.6 - 5.4 g/dL [facility] Calcium 9.7 8.6 - 10.3 mg/dL [facility] Phosphorus, Serum 5.2(H) 2.5 - 5.0 mg/dL [facility] Ca*PO4 50.4 <55.0 mg2/dL2 [facility] Calcium, Adjusted Total 9.7 8.6 - 10.3 mg/dL [facility] CA*PO4 CORRCTD 50.4 <55.0 mg2/dL2 [facility] 05/27/2025 3:00 AM EDT 05/28/2025 4:54 PM EDT us Ryan Graf MD LAB [id number] ICITED RESULTS Final Result Performing Organization Address [facility] Co de Phone Number [facility] [address] [place] [address] * Hepatitis B Surface Ag w/Reflex Confirmation (05/27/2025 3:00 AM EDT) Only the most recent of3 resultswithin the time period is included. Pathologist [facility] Hep B Surface Antigen Negative Negative [facility] 05/27/2025 3:00 AM EDT 05/28/2025 4:54 PM EDT us Ryan Graf MD LAB BLOOD ORDERABLES Final Resul t Performing Organization Address [facility] Co de Phone Number [facility] [address] [place] [address] * BUN/CREATININE RATIO (05/27/2025 3:00 AM EDT) Only the most recent of3 resultswithin the time period is included. Pathologist [facility] BUN/Creatinine Ratio 8.8 <=23.0 [facility] 05/27/2025 3:00 AM EDT 05/28/2025 4:54 PM EDT us Ryan Graf MD LAB [id number] ICITED RESULTS Final Result Performing Organization Address City/[facility]/ZIP Co de Phone Number [facility] [address] [place] [address] * (ABNORMAL) TSAT (05/27/2025 3:00 AM EDT) Only the most recent of3 resultswithin the time period is included. [facility] Iron 74 50 - 170 ug/dL [facility] Transferrin 176(L) 250 - 380 mg/dL [facility] TIBC 246 211 - 406 ug/dL [facility] Iron Saturation (TSat) 30 22 - 52 % [facility] 05/27/2025 3:00 AM EDT 05/28/2025 4:54 PM EDT Ryan Graf MD LAB BLOOD ORDERABLES Final Resul t Performing Organization Address [facility] Co de Phone Number [facility] [address] [place] [address] * (ABNORMAL) CBC and Differential (05/27/2025 3:00 AM EDT) Only the most recent of3 resultswithin the time period is included. [facility] DIFFERENTIAL MANUAL, 2 Not Indicated [facility] White Blood Cells 5.8 4.0 - 10.0 K/uL [facility] RBC 3.10(L) 3.93 - 5.22 M/uL [facility] Hgb 10.7(L) 11.2 - 15.7 g/dL [facility] Hemoglobin x 3 32.1(L) 33.6 - 47.1 g/dL [facility] Hematocrit 35.2 34.1 - 44.9 % [facility] MCV 113.5(H) 79.4 - 94.8 fL [facility] MCH 34.5(H) 25.6 - 32.2 pg [facility] MCHC 30.4(L) 32.2 - 35.5 g/dL [facility] RDW 12.5 11.7 - 14.4 % [facility] Platelets 128(L) 182 - 369 K/uL [facility] MPV 12.0 9.2 - 12.8 fL [facility] Neutrophils Relative 68.2 34.0 - 71.1 % [facility] Lymphocytes Relative 14.7(L) 19.3 - 51.7 % [facility] Monocytes 12.8(H) 4.7 - 12.5 % [facility] Eosinophils Relative 3.3 0.7 - 5.8 % [facility] Basophils Relative 0.7 0.1 - 1.2 % [facility] Immature Granulocytes 0.3 0.0 - 1.0 % [facility] 05/27/2025 3:00 AM EDT 05/28/2025 4:34 PM EDT us Ryan Graf MD LAB BLOOD ORDERABLES Final Resul t Performing Organization Address City/[facility] Co de Phone Number [facility] [address] [place] [address] * ALT (05/27/2025 3:00 AM EDT) Only the most recent of3 resultswithin the time period is included. ALT (SGPT) 21 10 - 49 U/L [facility] 05/27/2025 3:00 AM EDT 05/28/2025 4:54 PM EDT us Ryan Graf MD LAB BLOOD ORDERABLES Final Resul t Performing Organization Address [facility] de Phone Number [facility] [address] [place] [address] * AST (05/27/2025 3:00 AM EDT) Only the most recent of3 resultswithin the time period is included. AST (SGOT) 31 <34 U/L [facility] 05/27/2025 3:00 AM EDT 05/28/2025 4:54 PM EDT us Ryan Graf MD LAB BLOOD ORDERABLES Final Resul t Performing Organization Address [facility] de Phone Number [facility] [address] [place] [address] * Protein, total (05/27/2025 3:00 AM EDT) Only the most recent of3 resultswithin the time period is included. Total Protein 7.3 6.4 - 8.9 g/dL [facility] 05/27/2025 3:00 AM EDT 05/28/2025 4:54 PM EDT us Ryan Graf MD LAB BLOOD ORDERABLES Final Resul t Performing Organization Address [facility] de Phone Number [facility] [address] [place] [address] * (ABNORMAL) Alkaline phosphatase (05/27/2025 3:00 AM EDT) Only the most recent of3 resultswithin the time period is included. Alkaline Phosphatase 178(H) 46 - 116 U/L [facility] 05/27/2025 3:00 AM EDT 05/28/2025 4:54 PM EDT us Ryan Graf MD LAB BLOOD ORDERABLES Final Resul t Performing Organization Address [facility] de Phone Number [facility] [address] [place] [address] * Magnesium (05/27/2025 3:00 AM EDT) Only the most recent of3 resultswithin the time period is included. Magnesium 2.3 1.9 - 2.7 mg/dL [facility] 05/27/2025 3:00 AM EDT 05/28/2025 4:54 PM EDT us Ryan Graf MD LAB BLOOD ORDERABLES Final Resul t Performing Organization Address [facility] de Phone Number [facility] [address] [place] [address] * (ABNORMAL) Lactate dehydrogenase (05/27/2025 3:00 AM EDT) Only the most recent of3 resultswithin the time period is included. LDH 380(H) 120 - 246 U/L [facility] 05/27/2025 3:00 AM EDT 05/28/2025 4:54 PM EDT us Ryan Graf MD LAB BLOOD ORDERABLES Final Resul t Performing Organization Address [facility] de Phone Number [facility] [address] [place] [address] * (ABNORMAL) Glucose, random (05/27/2025 3:00 AM EDT) Only the most recent of3 resultswithin the time period is included. Glucose 159(H) 70 - 99 mg/dL [facility] Comment: ADA guidelines outline the following fasting glucose ranges: Normal: <100 Prediabetes: 100-125 Diabetes: >125 05/27/2025 3:00 AM EDT 05/28/2025 4:54 PM EDT us Ryan Graf MD LAB BLOOD ORDERABLES Final Resul t Performing Organization Address [facility] Phone Number [facility] [address] [place] [address] * (ABNORMAL) Ferritin (05/27/2025 3:00 AM EDT) Only the most recent of3 resultswithin the time period is included. Ferritin 1,641(H) 10 - 291 ng/mL [facility] 05/27/2025 3:00 AM EDT 05/28/2025 4:54 PM EDT us Ryan Graf MD LAB BLOOD ORDERABLES Final Resul t Performing Organization Address [facility] de Phone Number [facility] [address] [place] [address] * (ABNORMAL) Creatinine, serum (05/27/2025 3:00 AM EDT) Only the most recent of3 resultswithin the time period is included. Creatinine 5.90(H) 0.55 - 1.02 mg/dL [facility] 05/27/2025 3:00 AM EDT 05/28/2025 4:54 PM EDT us Ryan Graf MD LAB BLOOD ORDERABLES Final Resul t Performing Organization Address [facility] de Phone Number [facility] [address] [place] [address] * Bilirubin, total (05/27/2025 3:00 AM EDT) Only the most recent of3 resultswithin the time period is included. Total Bilirubin 0.3 0.3 - 1.2 mg/dL [facility] 05/27/2025 3:00 AM EDT 05/28/2025 4:54 PM EDT us Ryan Graf MD LAB BLOOD ORDERABLES Final Resul t Performing Organization Address [facility] de Phone Number [facility] [address] [place] [address] * (ABNORMAL) Electrolyte panel (05/27/2025 3:00 AM EDT) Only the most recent of3 resultswithin the time period is included. Sodium 133(L) 136 - 145 mEq/L [facility] Potassium 5.2(H) 3.4 - 5.0 mEq/L [facility] Chloride 94(L) 98 - 107 mEq/L [facility] Bicarbonate (CO2) 27 21 - 31 mEq/L [facility] Anion Gap 12 3 - 14 mEq/L [facility] 05/27/2025 3:00 AM EDT 05/28/2025 4:54 PM EDT us Ryan Graf MD LAB BLOOD ORDERABLES Final Resul t Performing Organization Address [facility] de Phone Number [facility] [address] [place] [address] * (ABNORMAL) Phosphorus (05/08/2025 3:00 AM EDT) Phosphorus, Serum 5.6(H) 2.5 - 5.0 mg/dL [facility] 05/08/2025 3:00 AM EDT 05/09/2025 2:33 PM EDT us Ryan Graf MD LAB BLOOD ORDERABLES Final Resul t Performing Organization Address [facility] Co de Phone Number [facility] [address] [place] [address] * Confirmation Test HCV (03/25/2025 3:00 AM EDT) Pathologist [facility] Hep C Ab Confirmation Not needed [facility] 03/25/2025 3:00 AM EDT 03/26/2025 12:41 PM EDT us Ryan rGaf MD LAB BLOOD ORDERABLES Final Resul t Performing Organization Address [facility] de Phone Number [facility] [address] [place] [address] * HEPATITIS C ABS W/REFLEX RNA DETECTR (03/25/2025 3:00 AM EDT) [facility] Hep C Virus Ab Non-Reacti ve Non-Reacti ve [facility] 03/25/2025 3:00 AM EDT 03/26/2025 1:20 PM EDT us Ryan Graf MD LAB [id number] ICITED RESULTS Final Result Performing Organization Address [facility] de Phone Number [facility] [address] [place] [address] * PTH, Intact (03/25/2025 3:00 AM EDT) [facility] PTH, Intact 401 160 - 721 pg/mL [facility] Comment: Suggested (KDIGO) ESRD maintenance range is two to nine times the upper normal limit (80.1 pg/mL) for the laboratory. 03/25/2025 3:00 AM EDT 03/26/2025 1:20 PM EDT us Ryan Graf MD LAB BLOOD ORDERABLES Final Resul t Performing Organization Address [facility] de Phone Number [facility] [address] [place] [address] * (ABNORMAL) Hemoglobin A1c (03/25/2025 3:00 AM EDT) Hemoglobin A1C 6.9(H) <5.7 % [facility] Comment: Methodology: Ion-exchange high-performance liquid chromatography (HPLC) Normal: <5.7% Prediabetes: 5.7-6.4% Diabetes: >6.4% Diabetic Glucose Control Evaluation: Therapeutic action suggested at >8.0% ADA recommends a glycemic goal of <7.0% 03/25/2025 3:00 AM EDT 03/26/2025 12:41 PM EDT Ryan Graf MD LAB BLOOD ORDERABLES Final Resul t Performing Organization Address [facility] de Phone Number [facility] [address] [place] [address] * (ABNORMAL) Lipid panel (03/25/2025 3:00 AM EDT) Cholesterol 117 mg/dL [facility] Comment: Optimal: <200 Borderline: 200-239 High Risk: >239 Triglycerides 140 mg/dL [facility] Comment: Optimal: <150 Borderline: 150-200 High Risk: >200 HDL 49(L) mg/dL [facility] Comment: Optimal: >59 Borderline: 40-59 High Risk: <40 LDL-Calc 40 mg/dL [facility] Comment: Optimal: <100 Borderline: 100-159 High Risk: >159 VLDL Cholesterol Paulie 28 mg/dL [facility] Comment: Optimal: <30 Borderline: 30-40 High Risk: >40 Chol/HDL Ratio 2.4 [facility] Comment: Optimal: <3.3 High Risk: >6.2 03/25/2025 3:00 AM EDT 03/26/2025 1:20 PM EDT us Ryan Graf MD LAB BLOOD ORDERABLES Final Resul t Performing Organization Address [facility] Co de Phone Number [facility] [address] [place] [address] from Last 3 Months Insurance [facility] Member Subscriber Plan / Payer (Ef fective 2021-Present) Name:Dana Nash Relation to Subscriber:Self Name:Dana Nash Payer ID:Not on file Type:Not on file Address: [address] [id number] Medicaid [place] [facility]
[2025-06-23 12:15] LABS: Alanine Aminotransferase 20 U/L (0-31); Albumin Level 3.8 g/dL (3.5-5.0); Alkaline Phosphatase 171 U/L (39-117); Anion Gap 14 (12-20); Aspartate Amino Transferase 26 U/L (5-31); Blood Urea Nitrogen 41 mg/dL (9-16); Calcium 9.7 mg/dL (8.4-10.2); Carbon Dioxide 32 mmol/L (22-29); Chloride 96 mmol/L (96-108); Estimated Glomerular Filt Rate 9; Potassium 4.3 mmol/L (3.3-5.1); Sodium 138 mmol/L (135-145); Total Protein 7.0 g/dL (6.5-8.0)
[2025-06-23 12:20] LABS: Hemoglobin A1C 140.5646 umol/L
== END 2025-06-23 08:59 | disposition home or self-care (01) ==
LOC: HO.WFDLDS 08:58
PROVIDERS: PCP Internal Medicine; Visit Provider Internal Medicine
DX: E11.22 Type 2 diabetes mellitus with diabetic chronic kidney disease (principal); N18.6 End stage renal disease; I50.20 Unspecified systolic (congestive) heart failure; E03.9 Hypothyroidism, unspecified; Z99.2 Dependence on renal dialysis; Z79.4 Long term (current) use of insulin
CPT/HCPCS: 36415; 80053; 83036; 99212

== ENCOUNTER 2025-06-23 08:58 | Outpatient (AMB) | payer MEDICARE, MEDICAID, SELFPAY ==
--- NOTE | 2025-06-23 09:03 | A.OFFPC_ITS ---
Vital Signs 06/23/25 09:07 BMI Reason not done Patient refused/unable BP 122/48 L Blood Pressure Location Rt brachial Position Sitting Respiration 14 Pulse 61 Pulse Source Pulse Oximeter Temp 98.5 F Temp Source Oral Pulse Oximetry (%) 96 Oxygen Delivery Method Room Air Intake Visit Reasons: follow up Intake Note: Follow up Clearing Distribution Clerk Required: No Allergies cetirizine Allergy (Unknown, Verified 06/23/25 09:05) Unknown lisinopril Allergy (Unknown, Verified 06/23/25 09:05) Unknown losartan Allergy (Unknown, Verified 06/23/25 09:05) Unknown spironolactone Allergy (Unknown, Verified 06/23/25 09:05) Unknown contrast dye Allergy (Unknown, Uncoded 06/23/25 09:05) kidney failure Tobacco use date assessed: 02/17/25 Fall risk assessment: No Falls in past year Last assessed Fall Risk: 06/23/25 Dental Screening Dental Screen Date: 02/17/25 HPI HPI Comments History of Present Illness Details 85-year-old female with past medical his tory of type 2 diabetes, ESRD on HD, CAD, CHF, history of breast cancer, depression, presenting for follow up CV: Follows with cardiology. Blood pressure is well controlled. No leg swelling or weight change. Has intermittent shortness of breath. Happens randomly. Pulmonary work up was ok. Had recent echocardiogram-has not heard results yet Endocrine: Hypothyroid on levothyroxine-increased after last TSH elevated. DM: generally well controlled Depression is stable on prozac. she was able to stop buspar Nephro: On HD 3x/week. Has been doing well. GI: Dysphagia. Had barium swallow. Saw GI. Patient recieved flu shot at the beginning of may ROS see HPI PHYSICAL EXAM: GENERAL: Alert and oriented x 3. NAD EYES: EOMI. Anicteric. HENT: Moist mucous membranes. Cerumen impaction b/l LUNGS: Clear to auscultation bilaterally. CARDIOVASCULAR: Regular rate and rhythm. +murmur. No JVD. ABDOMEN: Soft, non-tender +bs EXTREMITIES: No edema. Non-tender. SKIN: No rashes or lesions. Warm. NEUROLOGIC: No focal neurological deficits. CN II-XII grossly intact PSYCHIATRIC: Cooperative. Appropriate mood and affect [facility] Medical History Fistula Urge incontinence of urine Type 2 diabetes mellitus Tubular adenoma of colon Systolic left-sided congestive heart failure, NYHA class 2 Pulmonary embolism Protein malnutrition Osteopenia STACEY on CPAP Malignant neoplasm of female breast Lichen sclerosus of vulva Left leg swelling Incontinence Hypothyroidism HTN (hypertension) Hyperlipidemia Hiatal hernia Gastro-esophageal reflux ESRD on dialysis Diabetes mellitus Coronary arteriosclerosis Ischemic cardiomyopathy Congestive heart failure Cancer of left breast CAD (coronary artery disease) Anemia Surgical History H/O colonoscopy H/O: hysterectomy S/P SANDRINE-BSO History of implantable cardiac defibrillator (ICD) Family History Maternal Grandmother Cardiovascular disease Father Lung cancer Social History (Updated 06/23/25 @ 09:09 by Brandie Del Rosario CMA) Housing: House Alcohol intake: former Patient Tobacco Use Status: Never used Tobacco e-Cigarette/Vaping Use: Never Used Second Hand Smoke Exposure: Yes service: No Current occupational status: disabled Current occupational exposures/hazards: No Cognitive needs: No Hearing needs: No Vision needs: No Questionnaire PHQ-9 Over the last 2 weeks, how often have you been bothered by any of the following problems? 2. Feeling down, depressed, or hopeless: not at all 6. Feeling bad about yourself - or that you are a failure or have let yourself or your family down: not at all 7. Trouble concentrating on things, such as reading the newspaper or watching television: not at all 8. Moving or speaking so slowly that other people could have noticed. Or the opposite - being so fidgety or restless that you have been moving around a lot more than usual: not at all 9. Thoughts that you would be better off or of hurting yourself in some way: not at all [id number] - PHQ-9 Billing: Patient declined-do not bill Source: Developed by Drs. Bienvenido Aragon, Winnie Givens, Matt Alcantar and colleagues, with an educational justen from [employer]. Thrive Questionnaire Date Thrive assessed: 11/04/24 I am a: Parent/Caregiver What is your living situation today?: I have a steady place to live Within the past 12 months, did the food you bought not last and you didn't have the money to get more?: Never true Within the past 12 months, did you worry whether your food would run out before you got money to buy more?: Never true Do you have trouble paying for medicines?: No Do you have trouble getting transportation to medical appointments?: No Do you have trouble paying your heating and electricity bill?: No Do you have trouble taking care of your child, family member or friend?: No Do you have trouble with day-to-day activities such as bathing, preparing meals, shopping, managing finances, etc.?: Yes Are you currently unemployed and looking for a job?: No Are you interested in more education?: No Please select the resources that you would like help with: None Currently or been in a relationship where the following occur: No concerns reported THRIVE Score: 0 AUDIT C Alcohol Use Questionnaire (AUDIT-C) 1. How often do you have a drink containing alcohol?: Never 3. How often do you have six or more drinks on one occasion?: Never Total Score: 0 ANDREEA-7 AMB Questionnaire ANDREEA-7 Date ANDREEA - 7 assessed: 11/11/24 Source: Developed by Drs. Bienvenido Aragon, Winnie Givens, Matt Alcantar and colleagues, with an educational justen from [employer]. Physical exam (Primary Care) Vital Signs: Last Vital Signs Temp 98.5 F 06/23/25 09:07 Pulse 61 06/23/25 09:07 Resp 14 06/23/25 09:07 BP 122/48 L 06/23/25 09:07 Pulse Ox 96 06/23/25 09:07 Oxygen Delivery Method Room Air 06/23/25 09:07 Tobacco/Smoking Status: Tobacco use Status Tobacco use date assessed 02/17/25 06/23/25 09:05 Patient Tobacco Use Status Never used Tobacco 06/23/25 09:09 e-Cigarette/Vaping Use Never Used 06/23/25 09:09 Thrive Assessment: Date of Thrive Assessment Date Thrive assessed 11/04/24 06/23/25 09:05 Currently or been in a relationship where the following occur: No concerns reported Coding Level of Care Code Est Pt Level 4 (03430) Diagnoses Type 2 diabetes mellitus with chronic kidney disease on chronic dialysis, with long-term current use of insulin E11.22; N18.6; Z79.4; Z99.2 Diabetes mellitus cloth bolt bander insulin use: with cloth bolt bander use Diabetes mellitus complication status: with kidney complications Diabetes mellitus complication detail: with chronic kidney disease Chronic kidney disease stage: on chronic dialysis Systolic left-sided congestive heart failure, NYHA class 2 I50.20 ESRD on dialysis N18.6; Z99.2 Assessment & Plan Assessment & Plan (1) Type 2 diabetes mellitus: Code(s): E11.9 - Type 2 diabetes mellitus without complications Category: Medical Qualifiers: Diabetes mellitus cloth bolt bander insulin use: with assisted use Diabetes mellitus complication status: with kidney complications Diabetes mellitus complication detail: with chronic kidney disease Chronic kidney disease stage: on chronic dialysis Qualified Code(s): E11.22 - Type 2 diabetes mellitus with diabetic chronic kidney disease; N18.6 - End stage renal disease; Z79.4 - red leader (current) use of insulin; Z99.2 - Dependence on renal dialysis (2) Systolic left-sided congestive heart failure, NYHA class 2: Code(s): I50.20 - Unspecified systolic (congestive) heart failure Category: Medical (3) ESRD on dialysis: Comment: [facility]-[phone] Code(s): N18.6 - End stage renal disease; Z99.2 - Dependence on renal dialysis Category: Medical Plan DM-well controlled. she is due for A1C. Her eye exam is up to date. ESRD-Doing well on HD. CHF-euvolemic. Blood pressure is controlled Depression & anxiety are stable on prozac Orders: Orders Comprehensive Met. Panel Today E03.9 - Hypothyroidism, unspecified, E11.22 - Type 2 diabetes mellitus with diabetic chronic kidney disease, N18.6 - End stage renal disease, Z79.4 - [facility] (current) use of insulin, Z99.2 - Dependence on renal dialysis Hemoglobin A1c Today E03.9 - Hypothyroidism, unspecified, E11.22 - Type 2 diabetes mellitus with diabetic chronic kidney disease, N18.6 - End stage renal disease, Z79.4 - red leader (current) use of insulin, Z99.2 - Dependence on renal dialysis
[2025-06-23 09:07] VITALS: BP 122/48; PULSE 61; RESP 14; TEMP 36.9; O2SAT 96
--- OUTSIDE RECORDS SUMMARY | 2025-06-23 09:32 | XMS_ITS | Clinical Summary ---
Author Organization [address] [place] [address] [place] [phone] Phone Care Team Providers Care Dress Designer Name Role Phone Hawa Fish MD Primary Care Provider [phone] Allergies Active Allergy Reactions Criticality Noted Date Comments Cetirizine Weakness 05/12/2020 Iodinated Contrast Media 09/12/2022 Lisinopril 10/29/2012 hyperkalemia Losartan 09/12/2022 hyperkalemia Other 10/29/2020 Spironolactone 05/04/2017 Acute kidney injury. Medications sevelamer carbonate (RENVELA) 800 mg tablet Take 1 tablet (800 mg total) by mouth 3 (three) times a day with meals. Active flash glucose sensor (FREESTYLE CISCO 2 SENSOR MISC) APPLY 1 DEVICE EVERY 14 DAYS. 3 Active pen needle, diabetic 32 gauge x 5/32 needle USE 5 TIMES A DAY WITH INSULIN 3 Active busPIRone (BUSPAR) 15 mg tablet Take 1 tablet (15 mg total) by mouth 3 (three) times a day. 3 Active carvediloL (COREG) [...] 1 (one) time each day. 1 Active glucose blood test strip Apply 1 each topically. 0 Active acetaminophen (TYLENOL) 500 mg capsule Take 1 capsule (500 mg total) by mouth 1 (one) time each day if needed for mild pain or moderate pain. Active aspirin 81 mg EC tablet Take 1 tablet (81 mg total) by mouth daily. Active senna (SENOKOT) 8.6 mg tablet 2 (two) times a day. Active syringe with needle 1 mL 22 gauge x 1 1/2 syringe by Does not apply route. Patient started dialysis on August 17, 2022 Active levothyroxine (SYNTHROID, LEVOTHROID) 125 mcg tablet Take by mouth 1 (one) time each day before breakfast. Active letrozole (FEMARA) 2.5 mg tablet TOME 1 TABLETA POR VIA ORAL TODOS [place]ERN[place] 90 tablet 3 5 Active blood-glucose, business systems manager,cont (FreeStyle Cisco 3 [place]) misc Use with Cisco 3 plus sensor to monitor blood sugars. 1 each 5 Active blood-glucose sensor (FreeStyle Cisco 3 Plus Sensor) device Change senor every 15 days. 6 each 3 5 Active insulin lispro (HumaLOG KwikPen Insulin) 100 unit/mL injection pen USE BEFORE EACH MEAL PER SLIDING SCALE: <120: 0 units, 121-150: 1 units, 151-199: 2 UNITS, 200-249: 3 UNITS, 250-299: 4 UNITS, 300-349: 5 UNITS, 350-400: 6 UNITS, ABOVE 400: 15 mL 11 5 Active FLUoxetine (PROzac) 10 mg capsule Take 1 capsule (10 mg total) by mouth 1 (one) time each day. Active Active Problems Problem Noted Date Diagnosed Date Nonrheumatic aortic valve stenosis 04/23/2025 HTN (hypertension) 11/28/2023 Overview (10/14/2024): Treatment limited [...] kidney disease) stage 3, GFR 30-59 ml/min ([facility] V24, [facility] V28) 11/28/2023 Overview (11/28/2023): Dr. 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 Patient will be following with pulmonology ACC/AHA stage B congestive h eart failure due to ischemic cardiomyopathy (CMS/HCC V24, CMS/HCC V28) 03/08/2021 Overview (11/28/2023): Ischemic congestive cardiomyopathy Systolic left-sided congesti ve heart failure, NYHA class 2 (CMS/HCC V24, CMS/HCC V28) 01/26/2021 Overview (10/14/2024): - LVEF as low as 10-15% - GDMT limited by hypotension - Most recent echocardiogram 07/2022 at [facility] showed LVEF 10- 15%, global hypokinesis with wall motion abnormalities without hemodynamically significant valve disease - [employer] MACHINE OPERATOR PACKAGING-D generator change in 12/2023. There had been [...] arm temperature is equal bilaterally. Pulmonary embolism (CMS/HCC V24, CMS/HCC V28) Malignant neoplasm of left f emale breast (CMS/HCC V24, CMS/HCC V28) 11/30/2020 Class 1 obesity 04/15/2018 Chronic systolic heart failure (CMS/HCC V24, CMS /HCC V28) 08/22/2016 Type 2 diabetes, controlled, with renal manifestation (CMS/HCC V24, CMS/HCC V28) 06/02/2015 Obstructive sleep apnea 04/16/2015 Overview (11/28/2023): [...] 93%. For the entire study, PLMs ~34. [facility] CPAP treatment study, 08/07/2021. Weight 135 pounds; [...] Noted Date Diagnosed Date Resolved Date Old [place] (myocardial infarction) 11/28/2023 10/14/2024 Overview (11/28/2023): March 2011 [place] at [facility] Chronic systolic dysfunction of left ventricle 11/28/2023 10/14/2024 Overview (11/28/2023): S/P pacemaker Pacemaker 01/26/2021 10/14/2024 Overview (11/28/2023): Cardiac pacemaker Encounters Date Type Department Care Team Description 06/16/2025 11:00 AM EDT Ancillary Procedure [facility] Cardiology [facility] [address] [place] [address] Nonrheumatic aortic valve stenosis 06/09/2025 1:25 PM EDT Ancillary Procedure [facility] - [address] [place] [address] 05/11/2025 10:20 AM EDT Ancillary Procedure [facility] - [address] [place] [address] 04/23/2025 10:50 AM EDT Office Visit [facility] - [address] [place] [address] Taya Gonzales MD Chronic systolic heart failure (CMS/HCC V24, CMS/HCC V28) (Primary Dx); Nonrheumatic aortic valve stenosis; Coronary artery disease involving [place] coronary artery of [place] heart without angina pectoris 04/20/2025 Telephone Pulmonology - [place] [address] [place] [address] Coy Salomon MD 04/14/2025 11:00 AM EDT Ancillary Procedure [facility] - [address] [place] [address] 04/09/2025 3:12 PM EDT - 04/09/2025 11:59 PM EDT Hospital Encounter Radiology Department - [address] [address] Screening mammogram, encounter for Discharge Disposition: Home or Self Care 04/08/[address] [facility] - [address] [place] [address] Nikhil Sorenson MD 03/31/2025 3:15 PM EDT Office Visit [facility] Hematology Oncology [address] [place] [address] Cullen Whiting MD 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 breast in female, estrogen receptor positive ([facility] V24, [facility] V28) (Primary Dx) from Last 3 Months Immunizations Immunization Administration Dates Next Due Influenza trivalent, 0.5mL [...] 7yo and older 11/20/2012 Zoster Live 11/20/2012 Surgical History Surgery Date Site/Laterality Comments HYSTERECTOMY Medical History Medical History Date Comments Breast cancer ([facility], [facility] V28) left breast cancer-2020 Social History Tobacco Use Types Packs/Day Years Used Date Smoking Tobacco: Never Smokeless Tobacco: Never Tobacco Cessation:Counseling Given: Not Answered Alcohol Use Standard Drinks/Week Comments Never 0 (1 standard drink = 0.6 oz pur e alcohol) Comments No Sex and Gender Information Value Date Recorded Sex Assigned at Not on file Legal Sex Female 12:17 AM EST Gender Identity Not on file Sexual Orientation Not on file Obstetrics History Para Term AB IAB SAB Ectopic Multiple Livin g Live Births 2 2 2 2 Date Outcome GA Total Labor Labor/2nd/3rd Weight Sex Type Anes PTL Shae A1 A5 Name Clin Term Term Last Filed Vital Signs Vital Sign Reading Time Taken Comments Blood Pressure 134/77 06/16/2025 11:08 AM EDT Pulse 73 04/23/2025 10:57 AM EDT Temperature 36.8 C (98.3 F) 03/31/2025 3:21 PM EDT Respiratory Rate 16 02/18/2025 9:59 AM EDT Oxygen Saturation 96% 04/23/2025 10:57 AM EDT Inhaled Oxygen Concentration - - Weight 64 kg (141 lb) 06/16/2025 11:08 AM EDT Height 149.9 cm (4' 11 ) 06/16/2025 11:08 AM EDT Body Mass Index 28.48 06/16/2025 11:08 AM EDT Plan of Treatment Upcoming Encounters Date Type Department Care Team (Late st Contact Info) Description 08/27/2025 9:45 AM EST Office Visit Pulmonology - [place] [address] [facility] [address] [place] [address] Coy Salomon MD 175 [facility] [address] [place] [address] 09/10/2025 9:20 AM EST Office Visit Endocrinology - [place] [address] [place] [address] Lucille Clarke PA [address] [place] [address] 10/01/2025 3:15 PM EST Office Visit [facility] Hematology Oncology [address] [place] [phone] Cullen Whiting MD [address] [place] [phone] 02/10/2026 1:30 PM EDT Ancillary Procedure [facility] [address] [facility] [address] [place] [phone] Health Maintenance Due Date Last Done Comments Colorectal Cancer Screening: Colonoscopy 1940 Diabetes: Annual GFR (Glomerular Filtration Rate) 1940 Zoster Vaccines (1 of 2) 01/15/2013 11/20/2012 RSV Immunization Adult Patients (1 - 1-dose 75+ series) 2017 Falls Risk Assessment 08/31/2022 Medicare Annual Wellness Visit 08/31/2022 Social Influencers of Health Screening 08/31/2022 Diabetes: Annual Urine Albumin-Creatinine Ratio (uACR) 09/03/2022 Hypertension/CHF/CAD Annual BMP Blood Test 09/03/2022 DTaP,Tdap,and Td Vaccines (2 - Td or Tdap) 11/20/2022 11/20/2012 Diabetes: Annual Retina Eye Exam 12/28/2022 12/28/2021 Diabetes: Annual Foot Exam 02/02/2023 02/02/2022 Depression Screening 09/24/2024 COVID-19 Vaccine ( season) 2025 07/22/2021, 12/01/2020, 11/02/2020 Influenza Vaccine (#1) 2025 , 07/22/2021, 08/03/2020, Additional history exists Diabetes: Blood Sugar Control Test (HGBA1C) 09/25/2025 03/25/2025, 03/25/2025, 12/24/2024, Additional history exists Cholesterol Screening (Lipid Panel) 03/25/2030 03/25/2025, 12/24/2024, 06/25/2020 Osteoporosis Screening (Bone Density Screening) 11/08/2030 [...] age to complete this topic Meningococcal B Vaccine Aged Out No l onger eligible based on patient's age to complete this topic RSV Immunization Patients Under 20 months Aged Out No longer eligible based on patient's age to complete this topic Varicella Vaccines Aged Out No longer eligible based on patient's age to complete this topic Medical Devices Implanted Type Area Account Collector Device Identifier Shelf Expiration Date Model / Serial / Lot Yohan-Paloma 3357-40q Unify Assura(Tm) [id number] Implanted:12/23 (Quantity not on file) Cardiac MACHINE OPERATOR PACKAGING-D ICD [facility] 3357-40Q UNIFY ASSURA(TM) / [id number] / Abbt-Stju Unify Assura [id number] Implanted:12/23 (Quantity not on file) Cardiac MACHINE OPERATOR PACKAGING-D ICD [facility] UNIFY ASSURA 3357-40Q / [id number] / Procedures Procedure Name Priority Date/Time Associated Diagnosis Comments CARDIAC DEVICE CHECK- REMOTE- MURJ Routine 06/09/2025 1:20 PM EDT CARDIAC DEVICE CHECK- REMOTE- MURJ Routine 05/11/2025 10:18 AM EDT CARDIAC DEVICE CHECK- REMOTE- MURJ Routine 04/14/2025 10:56 AM EDT MG MAMMO DIGITAL SCREENING W SETH BILAT Routine 04/09/2025 3:45 PM EDT Screening mammogram, encounter for KARIME DEXA AXIAL SKELETON Routine 11/08/2020 3:13 PM EST Asymptomatic menopausal state from Last 3 Months or Most Recently Relevant to Health Maintenance Results * Cardiac device check - Remote- MURJ (06/09/2025 1:20 PM EDT) Only the most recent of3 resultswithin the time period is included. Date Time Interrogation Session [id number] CV DEVICE CHECK Type Interrogation Session Remote Scheduled CV DEVICE CHECK Implantable Pulse Generator Account Collector [facility] CV DEVICE CHECK Implantable Pulse Generator Type MACHINE OPERATOR PACKAGING-D CV DEVICE CHECK Implantable Pulse Generator Model 3357-40Q Unify Assura(TM) CV DEVICE CHECK Implantable Pulse Generator Serial Number [id number] CV DEVICE CHECK Implantable Pulse Generator Implant Date 20240110 CV DEVICE CHECK Battery Remaining Percentage 73.00 CV DEVICE CHECK Battery Remaining Longevity 49.0 CV DEVICE CHECK Battery Voltage 2.980 CV D EVICE CHECK Battery ORCHARDIST Trigger 2.590 CV DEVICE CHECK Battery Status Middle of Service CV DEVICE CHECK Capacitor Charge Time 8.100 CV DEVICE CHECK Antione Statistic RA Percent Paced 57.00 CV DEVICE CHECK Antione Statistic RV Percent Paced 99.00 CV DEVICE CHECK MACHINE OPERATOR PACKAGING Statistic MACHINE OPERATOR PACKAGING Percent Paced 99.00 CV DEVICE CHECK Atrial Tachy Statistic AT/AF [place] Percent 0.00 CV DEVICE CHECK Lead Channel Sensing Intrinsic Amplitude 1.200 CV DEVICE CHECK Lead Channel Setting Sensing Sensitivity 0.30 CV DEVICE CHECK Lead Channel Impedance Value 450 CV DEVICE CHECK Lead Channel Pacing Threshold Amplitude 1.000 CV DEVICE CHECK Lead Channel Pacing Threshold Pulse Width 0.5 CV DEVICE CHECK Lead Channel RA Pacing Threshold Date 2025-06-07 CV DEVICE CHECK Lead Channel Setting Pacing Amplitude 2.000 CV DEVICE CHECK Lead Channel Setting Pacing Pulse Width 0.5 CV DEVICE CHECK Lead Channel Sensing Intrinsic Amplitude 4.100 CV DEVICE CHECK Lead Channel Setting Sensing Sensitivity 0.50 CV DEVICE CHECK Lead Channel Impedance Value 400 CV DEVICE CHECK Lead Channel Pacing Threshold Amplitude 1.000 CV DEVICE CHECK Lead Channel Pacing Threshold Pulse Width 0.5 CV DEVICE CHECK Lead Channel RV Pacing Threshold Date 2025-06-07 CV DEVICE CHECK Lead Channel Setting Pacing Amplitude 2.000 CV DEVICE CHECK Lead Channel Setting Pacing Pulse Width 0.5 CV DEVICE CHECK Lead Channel Impedance Value 450 CV DEVICE CHECK Lead Channel Pacing Threshold Amplitude 2.750 CV DEVICE CHECK Lead Channel Pacing Threshold Pulse Width 0.5 CV DEVICE CHECK Lead Channel Pacing Threshold Date 2025-06-07 CV DEVICE CHECK Lead Channel Setting Pacing Amplitude 3.750 CV DEVICE CHECK Lead Channel Setting Pacing Pulse Width 0.5 CV DEVICE CHECK Antione Setting Mode (NBG Code) DDDR CV DEVICE CHECK Ventricular chambers paced during MACHINE OPERATOR PACKAGING pacing. BiV CV DEVICE CHECK Antione Setting Lower Rate Limit 60 CV DEVICE CHECK Antione Setting AT Mode Switch Rate 180 CV DEVICE CHECK Antione Setting Maximum Tracking Rate 110 CV DEVICE CHECK Antione Setting Maximum Sensor Rate 110 CV DEVICE CHECK Antione Setting PAV Delay 150 CV DEVICE CHECK Antione Setting JAGJIT Delay 130 CV DEVICE CHECK MACHINE OPERATOR PACKAGING LV-RV Delay 40 CV D EVICE CHECK Therapy Statistic Recent Shocks Delivered 0 CV DEVICE CHECK Therapy Statistic Recent Shocks Aborted 0 CV DEVICE CHECK Therapy Statistic Recent ATP Delivered 0 CV DEVICE CHECK Shock Measured Impedance 61 CV DEVICE CHECK Zone Setting Type Category [...] 3 CV DEVICE CHECK Date of Service 2025-07-16 CV DEVICE CHECK Anatomical Region Laterality Modality Device Interroga tion 06/07/2025 4:03 AM EDT Impressions 06/09/2025 12:43 PM EDT Heart Failure Diagnostic: Stable * Heart failure diagnostics assessed through the device * Status: Stable * No overt HF present Narrative Procedure Note Kaz Salgado MD - 06/09/2025 IMPRESSION: Heart Failure Diagnostic: Stable * Heart failure diagnostics assessed through the device * Status: Stable * No overt HF present us Kaz Salgado MD CV IMPLANTABLE CARDIAC DEV ICE PROCEDURES Final Result * MG Mammo Digital Screening w Seth bilat (04/09/2025 3:45 PM EDT) Anatomical Region Laterality Modality Breast Bilateral Mammography 04/13/2025 12:1 0 PM EDT Impressions 04/13/2025 12:20 PM EDT No mammographic evidence of malignancy. BREAST DENSITY: C - The breasts are heterogeneously dense which may obscure small masses. BI-RADS CATEGORY: 2 - BENIGN RECOMMENDATION: Screening bilateral mammogram is recommended in 1 year. MAMMO LOCATION: [facility], [address] [place] [address], [id number], . -------- FINAL REPORT -------- Dictated By: Candice Stone Dictated Date: 04/13/2025 12:10 ET Assigned Physician: Candice Stone Reviewed and Electronically Signed By: Candice Stone Signed Date: 04/13/2025 12:20 ET Workstation ID: [id number] Transcribed By: Self Edit Transcribed Date: 04/13/2025 12:10 ET Narrative 04/13/2025 12:20 PM EDT EXAM: Screening Mammogram CLINICAL: 85 years old, Female, routine annual exam. History of left breast cancer status post lumpectomy in 2020. History of a right excisional biopsy with benign results in 2021. COMPARISON: 10/31/2023 and as far back as 09/02/2020 TECHNIQUE: Bilateral MLO and CC views were obtained digitally with 3-D mammogram (digital breast tomosynthesis). Computer-aided detection was utilized in evaluation of this exam (CAD). Battery pack superimposes the left axillary and upper breast region limiting regional assessment. FINDINGS: Partially imaged lumpectomy changes with surgical clips in the inner left breast. Postsurgical changes with surgical clips in the upper outer right breast. No new suspicious mass, architectural distortion, or suspicious calcifications. Procedure Note Candice Stone MD - 04/13/2025 EXAM: Screening Mammogram CLINICAL: 85 years old, Female, routine annual exam. History of leftbreast cancer status post lumpectomy in 2020. History of a rightexcisional biopsy with benign results in 2021. COMPARISON: 10/31/2023 and as far back as 09/02/2020 TECHNIQUE: Bilateral MLO and CC views were obtained digitally with 3-Dmammogram (digital breast tomosynthesis). Computer-aided detection wasutilized in evaluation of this exam (CAD). Battery pack superimposes theleft axillary and upper breast region limiting regional assessment. FINDINGS: Partially imaged lumpectomy changes with surgical clips in the inner leftbreast. Postsurgical changes with surgical clips in the upper outer rightbreast. No new suspicious mass, architectural distortion, or suspiciouscalcifications. IMPRESSION: No mammographic evidence of malignancy. BREAST DENSITY: C - The breasts are heterogeneously dense which mayobscure small masses. BI-RADS CATEGORY: 2 - BENIGN RECOMMENDATION: Screening bilateral mammogram is recommended in 1 year. MAMMO LOCATION: [facility], [address] [place] [address], [phone], . -------- FINAL REPORT -------- Dictated By: Candice Stone Dictated Date: 04/13/2025 12:10 ET Assigned Physician: Candice Stone Reviewed and Electronically Signed By: Candice Stone Signed Date: 04/13/2025 12:20 ET Workstation ID: [id number] Transcribed By: Self Edit Transcribed Date: 04/13/2025 12:10 ET us Hawa Fish MD IMG BI PROCEDURES Final Result * [facility] DEXA AXIAL SKELETON (11/08/2020 3:13 PM EST) Anatomical Region Laterality Modality Mammography 11/08/2020 12:4 8 PM EST Narrative 11/08/2020 3:13 PM EST [facility] Diagnostic Imaging Department [address] [place] [address] Patient: DANA NASH /Age/Sex: 1940 80 - F Unit#: [id number] Location/Status: [facility]em[facility] Ordering Physician: CULLEN WHITING MD [facility] Dexa Axial Skeleton - 11/08/201323 HISTORY: The patient is a 80-year-old postmenopausal female with clinical concern for metabolic bone disease. FINDINGS: Dual [...] 130% of that of age matched controls. This yields a T-score of -0.2 and a Z-score of 1.8 and there is therefore no evidence of osteoporosis or osteopenia here. However, the T-score of the right femoral neck is -1.6 and that of the left femoral neck is -1.9 which is diagnostic of osteopenia. IMPRESSION: 1. Osteopenia. 2. FRAX analysis yields a 10-year probability of major osteoporotic fracture of 13.1% and a 10-year probability of hip fracture of 3.1%. Code 91542 Dictating Physician: KYLIE VIVEROS MD Electronically Signed by: KYLIE VIVEROS MD Dic Date/Time: 11/08/201511 Sign date/Time: 11/08/201512 Procedure Note Kylie Viveros MD - 09/12/2022 [facility] Diagnostic Imaging Department [address] [place] [address] Patient: DANA NASH./Age/Sex: 1940 - 80 - F Unit#: [id number] Location/Status: [facility] CLI Mnemonic/Ordering Site: [facility] Ordering Physician: CULLEN WHITING MD [facility] Dexa Axial Skeleton - 11/08/20 - 1324 HISTORY: The patient is a 80-year-old postmenopausal [...] density of the femurs bilaterally is 0.981 gm/[id number] is 97% of that of young normals [...] probability of hip fracture of 3.1%. Code 07129 Dictating Physician: KYLIE VIVEROS MD Electronically Signed by: KYLIE VIVEROS MD Dic Date/Time: 11/08/20 151 Sign date/Time: 11/08/20 151 Cullen Whiting MD IM BI PROCEDURES Final Res ult from Last 3 Months or Most Recently Relevant to Health Maintenance Insurance [employer] [place] [employer] [place] Care Teams Dress Designer Relationship Specialty Start Date End Date Hawa Fish MD [address] [place] [phone] PCP - General Internal Medicine 04/23/25
--- OUTSIDE RECORDS SUMMARY | 2025-06-23 09:32 | XMS_ITS | Clinical Summary ---
Author Organization [facility] Address [address] [place] [address] Care Team Providers Care Steam Clothes Press Operator Name Role Phone Hawa Fish MD Primary Care Provider [phone] Allergies Active Allergy Reactions Criticality Noted Date [...] 60 03/18/2024 3:51 PM EDT Temperature 36.2 C (97.1 F) 03/18/2024 3:51 PM EDT Respiratory Rate - - Oxygen Saturation 100% [...] Tdap) 11/20/2022 11/20/2012 COVID-19 Vaccine ( season) 2025 07/22/2021, 12/01/2020, 11/02/2020 Influenza Vaccine (#1) 2025 , 07/22/2021, 08/03/2020, Additional history exists Pneumococcal Vaccine Completed 03/10/2015, 08/11/2009, 08/03/2005 Hepatitis B Vaccines Aged Out No long er eligible based on patient's age to complete this topic RSV Ped < 20 months Aged Out No longe r eligible based on patient's age to complete this topic Care Teams Steam Clothes Press Operator Relationship Specialty Start Date End Date Hawa Fish MD PCP - General Internal Medicine 10/28/20
--- OUTSIDE RECORDS SUMMARY | 2025-06-23 09:32 | XMS_ITS ---
Author Name [facility] Organization Unknown Care Team Organization Name Specialty Phone Email Start Date End Da te [facility] 08/01/2022 05/12/2024
== END 2025-06-23 09:25 | disposition home or self-care (01) ==
LOC: HO.HMCFM 08:58
PROVIDERS: PCP Internal Medicine; Visit Provider Internal Medicine
DX: E11.22 Type 2 diabetes mellitus with diabetic chronic kidney disease (principal); N18.6 End stage renal disease; Z79.4 Long term (current) use of insulin; I50.20 Unspecified systolic (congestive) heart failure; Z99.2 Dependence on renal dialysis